=== PATIENT | male | born 1945 | race African-American/Black ===

== ENCOUNTER → 2016-12-14 | Outpatient (CLI) | payer MEDICARE ==
[~2016-12-14] MED LIST: AMIT25TA9 PO; ASPI-808 PO; Amitriptyline; CARV25TA PO; CARV6.252 PO; CEFE1FRO IV; CLOP75TA69 PO; DIGO-10 PO; DIGO250T PO; EXEN2PEN SQ; FURO40TA4 PO; Finasteride PO; GLIP10TA13 PO; GLIP5TAB13 PO; Glipizide; HYDR-3820 PO; IBUP-1780 PO; INSU100V5 SC; INSU100V5 SQ; LISI40TA PO; Lisinopril; METF1000 PO; METF500T4 PO; METH1TAB59 PO; METR500P4 IV; Metformin; PRAS10TA6 PO; SPIR25TA3 PO; ZOLP5TAB7 PO; [UNRECOGNIZED DRUG - REMARK]
--- OUTSIDE RECORDS SUMMARY | 2016-12-14 13:05 | XMS REPORT | Continuity of Care Document ---
Author Author [facility] Organization [facility] Address Unknown Phone Unavailable Care Team Providers Care Food Safety Specialist Name Role Phone BEAU CHANG DO PCP Insurance Providers Payer Name Policy Number Subscriber Name Relationship [employer]ps Medicare [id number] Sky Cancino 18 Self / Same As Patient [facility] [id number] Sky Cancino 18 Self / Same As Patient Advance Directives Directive Response Recorded Date/Time Advance Directives No 12/29/15 7:07am Health Care Power of Dumper Bailer Operator No 12/29/15 7:07am Organ Donor No 12/29/15 [...] Reaction Status Last Updated Sulfa (Sulfonamide Antibiotics) ([id number]) Allergy Mild Active Immunizations No immunization records. Vital Signs No known vital signs results. Results No known relevant diagnostic tests, laboratory data and/or discharge summary. Procedures No known history of procedures. Encounters Encounter Location Arrival/Admit Date Discharge/Depart Date Attending Provider Discharged Recurring [facility] 02/02/16 3:26pm 4:00pm LORY NAM APRN
[2016-12-14 13:35] LABS: BASOPHILS % (AUTO) 0 % (0-10); EOSINOPHILS # (AUTO) 0.3 10^3/uL (0.0-0.3); EOSINOPHILS % (AUTO) 5 % (0-10); LYMPHOCYTES # (AUTO) 1.5 X 10^3 (1.0-4.0); LYMPHOCYTES % (AUTO) 25 % (12-44); MEAN CORPUSCULAR HEMOGLOBIN 27 PG (25-34); MEAN CORPUSCULAR HGB CONC 32 G/DL (32-36); MEAN CORPUSCULAR VOLUME 85 FL (80-99); MEAN PLATELET VOLUME 10.8 FL (7.4-10.4); MONOCYTES # (AUTO) 0.5 X 10^3 (0.0-1.0); MONOCYTES % (AUTO) 8 % (0-12); NEUTROPHILS # (AUTO) 3.8 X 10^3 (1.8-7.8); NEUTROPHILS % (AUTO) 63 % (42-75); PLATELET COUNT 351 10^3/uL (130-400); RED BLOOD COUNT 3.89 10^6/uL (4.35-5.85); RED CELL DISTRIBUTION WIDTH 13.3 % (10.0-14.5)
[2016-12-14 13:56] LABS: ALBUMIN 3.6 G/DL (3.2-4.5); BILIRUBIN,TOTAL 0.3 MG/DL (0.1-1.0); CREATININE SERUM 2.4 MG/DL (0.60-1.30); POTASSIUM 5.8 MMOL/L (3.6-5.0); TOTAL PROTEIN 7.6 G/DL (6.4-8.2)
[2016-12-14 14:02] LABS: ERYTHROCYTE SEDIMENTATION RATE 61 MM/HR (0-30)
--- NOTE | 2016-12-20 14:12 | Diagnostic Imaging Report ---
3 views of the left foot. INDICATION: Infection in the great toe. FINDINGS: There is minimal subchondral erosion along the medial aspect of the base of the proximal phalanx of the great toe which is probably degenerative. There is no significant periosteal reaction, bone destruction, or other sign of bone infection identified. Mild hallux valgus is seen. No radiopaque foreign body. IMPRESSION: Minimal subchondral erosions along the first metatarsal/ pharyngeal joint probably related to degenerative change. Dictated by: Dictated on workstation # [id number]
== END ==
LOC: RAD 13:01
PROVIDERS: ATTEND Surgery
DX: E11.621 Type 2 diabetes mellitus with foot ulcer (principal); E11.42 Type 2 diabetes mellitus with diabetic polyneuropathy; L97.524 Non-pressure chronic ulcer of other part of left foot with necrosis of bone; I70.245 Atherosclerosis of native arteries of left leg with ulceration of other part of foot; I70.262 Atherosclerosis of native arteries of extremities with gangrene, left leg
CPT/HCPCS: 36415; 73630; 80053; 83036; 85025; 85652

== ENCOUNTER → 2017-01-18 | Outpatient (CLI) | payer MEDICARE | LOC: CARD 10:56 | PROVIDERS: ATTEND Surgery | DX: E11.621 Type 2 diabetes mellitus with foot ulcer (principal); E11.42 Type 2 diabetes mellitus with diabetic polyneuropathy; L97.524 Non-pressure chronic ulcer of other part of left foot with necrosis of bone; I70.245 Atherosclerosis of native arteries of left leg with ulceration of other part of foot; I70.262 Atherosclerosis of native arteries of extremities with gangrene, left leg | CPT/HCPCS: 36415; 83036; 93005 ==

== ENCOUNTER 2017-01-25 08:17 | Outpatient (RCR) | payer MEDICARE ==
--- OUTSIDE RECORDS SUMMARY | 2016-12-14 10:25 | XMS REPORT | Continuity of Care Document ---
Author Author [facility] Organization [facility] Address Unknown Phone Unavailable Care Team Providers Care Industrial Gas Servicer Name Role Phone BEAU CHANG DO PCP Insurance Providers Payer Name Policy Number Subscriber Name Relationship [employer] [id number] Sky Cancino 18 Self / Same As Patient [facility] [id number] Sky Cancino 18 Self / Same As Patient Advance Directives Directive Response Recorded Date/Time Advance Directives No 12/29/15 7:07am Health Care Power of Infertility Nurse No 12/29/15 7:07am Organ Donor No 12/29/15 7:07am Problems No problem information available. Medications Current Home Medications Medication Dose Units Route Directions Days/Qty Instructions Start Date [Lisinopril] 12/31/11 [Amitriptyline] 12/31/11 [Glipizide] 12/31/11 [Metformin] 12/31/11 Carvedilol (Coreg) 6.25 Mg 1 Each Oral Twice A Day 01/04/12 Metformin Hcl 1,000 Mg 1,000 Mg Oral Twice A Day 12/29/15 Digoxin 250 Mcg 250 Mcg Oral Daily 12/29/15 Furosemide 40 Mg 40 Mg Oral Daily 12/29/15 Methyl-B12/L-Mefolate/B6 Phos 1 Each 1 Each Oral Three Times A Day 12/29/15 Spironolactone 25 Mg 25 Mg Oral Daily 12/29/15 Glipizide 10 Mg 20 Mg Oral Twice A Day 12/29/15 Lisinopril 40 Mg 40 Mg Oral Daily 12/29/15 Amitriptyline Hcl 25 Mg 25 Mg Oral Twice A Day 12/29/15 Carvedilol 25 Mg 25 Mg Oral Twice A Day 12/29/15 Insulin Determir 1,000 Units/10 Ml 24 Units Sub-Q Daily 12/29/15 Exenatide Microspheres 2 Mg/0.65 Ml 2 Mg Sub-Q Weekly 12/29/15 Aspirin 325 Mg 325 Mg Oral Daily 12/29/15 Clopidogrel Bisulfate 75 Mg 75 Mg Oral Daily 30 12/29/15 Social History Social History Problem Response Recorded Date/Time Recent Foreign Travel No 12/15/2015 1:26pm Do you dip or chew tobacco? No 12/29/2015 7:10am Hospital Discharge Instructions No hospital discharge instructions. Plan of Care Prescriptions See Medication Section Functional Status No functional status results. Allergies, Adverse Reactions, Alerts Allergen Type Severity Reaction Status Last Updated Sulfa (Sulfonamide Antibiotics) ([id number]) Allergy Mild Active Immunizations No immunization records. Vital Signs No known vital signs results. Results No known relevant diagnostic tests, laboratory data and/or discharge summary. Procedures No known history of procedures. Encounters Encounter Location Arrival/Admit Date Discharge/Depart Date Attending Provider Discharged Recurring [facility] 02/02/16 3:26pm 4:00pm LORY NAM APRN
[~2017-01-25 08:17] MED LIST changes: -CEFE1FRO IV; -DIGO250T PO; -Finasteride PO; -GLIP5TAB13 PO; -HYDR-3820 PO; -IBUP-1780 PO; -INSU100V5 SQ; -METF500T4 PO; -METR500P4 IV; -PRAS10TA6 PO; -ZOLP5TAB7 PO
[2017-01-25] MEDS ORDERED: HYDR-3820 PO (10:51)
[2017-01-25] MEDS ORDERED: PRAS10TA6 PO (10:51)
[2017-01-25] MEDS ORDERED: DIGO250T PO (10:51)
[2017-01-25] MEDS ORDERED: ZOLP5TAB7 PO (10:51)
[2017-01-28] MEDS ORDERED: morphine INJ 10 MG/ML 1ML (SYR OR VIAL) ONE (15:35)
[2017-01-29] MEDS ORDERED: METR500P4 IV (09:52)
[2017-01-29] MEDS ORDERED: CEFE1FRO IV (09:52)
[2017-01-29] MEDS ORDERED: GLIP5TAB13 PO (09:52)
[2017-01-29] MEDS ORDERED: INSU100V5 SQ (09:52)
[2017-02-16] MEDS ORDERED: HYDR-3820 PO (08:19)
[2017-02-16] MEDS ORDERED: METF500T4 PO (08:19)
[2017-02-16] MEDS ORDERED: Finasteride PO (08:19)
[2017-02-16] MEDS ORDERED: IBUP-1780 PO (08:19)
== END 2017-01-27 16:00 | disposition home or self-care (01) ==
LOC: WOUNDCARE 08:17
PROVIDERS: ATTEND Surgery
DX: E11.621 Type 2 diabetes mellitus with foot ulcer (principal); E11.42 Type 2 diabetes mellitus with diabetic polyneuropathy; L97.524 Non-pressure chronic ulcer of other part of left foot with necrosis of bone; I70.245 Atherosclerosis of native arteries of left leg with ulceration of other part of foot; I70.262 Atherosclerosis of native arteries of extremities with gangrene, left leg
CPT/HCPCS: 11042; 11100; 87070; 87075; 87077; 87186; 87205; 93922; 99212; 99213

== ENCOUNTER 2017-02-05 15:43 | Inpatient (IN) | payer MEDICARE ==
[~2017-02-05] VITALS: Ht 175.3 cm; Wt 62.1 kg
[~2017-02-05 15:43] MED LIST changes: +CEFE1FRO IV; +DIGO250T PO; +GLIP5TAB13 PO; +HYDR-3820 PO; +INSU100V5 SQ; +METR500P4 IV; +PRAS10TA6 PO; +ZOLP5TAB7 PO
[2017-02-05 16:53] VITALS: BP 137/67
[2017-02-05] MEDS ORDERED: HYDR-3820 PO (17:29)
[2017-02-05] MEDS: HYDROcodone/APAP 10 MG/325 MG (LORTAB) TAB PO PRN (18:08)
[2017-02-05] MEDS: IBUPROFEN 800 MG (MOTRIN) TAB PO SCH (18:08)
[2017-02-05 18:22] VITALS: BP 148/71
[2017-02-05] MEDS: ZOLPIDEM 5 MG (AMBIEN) TAB PO PRN (21:33)
[2017-02-05] MEDS: AMITRIPTYLINE 25 MG (ELAVIL) TAB PO SCH (21:34)
[2017-02-05] MEDS: FINASTERIDE (PROSCAR) 5 MG TAB PO SCH (21:34)
[2017-02-05] MEDS: CARVEDILOL 12.5 MG (COREG) TABLET PO SCH (21:34)
[2017-02-05] MEDS: inSUlin DETERMIR 1 UNIT/0.01 ML (LEVEMIR) CHARGE PER UNIT SQ SCH (21:34)
[2017-02-05] MEDS: inSUlin (REGULAR) HUMAN 1 UNIT/0.01 ML (CHARGE PER UNIT) SC SCH (21:37)
--- NOTE | 2017-02-05 23:00 | HISTORY AND PHYSICAL ---
DATE OF SERVICE: 02/05/2017 CHIEF COMPLAINT: Difficulty with walking. HISTORY OF PRESENT ILLNESS: The patient is a 71-year-old male who lives with his spouse in [place] but has PCP in [place], [place]. He has past medical history significant for insulin-dependent diabetes mellitus. He developed infection of the left foot which went on to require a left BKA performed by Dr. Salgado at [facility] in [place], [place]. The patient is now referred to inpatient rehabilitation unit at [facility] in [place] for ongoing amputee rehabilitation. He had been independent prior to this. He currently requires assistance for his ADLs and mobility skills See PT/OT olya for details. PAST MEDICAL HISTORY: Insulin-dependent diabetes mellitus. PAST SURGICAL HISTORY: As per above. He has had prior lumbar spine surgery in the past as well. ALLERGIES: SULFA, PLAVIX, PRAVASTATIN, TEMAZEPAM INTOLERANCE. MEDICATIONS: ASA 325 mg p.o. q. day, lisinopril 40 mg p.o. q. day, digoxin 0.25 mg p.o. q. day, Effient 10 mg p.o. q. day, Glucophage 1000 mg p.o. b.i.d., amitriptyline 25 mg p.o. b.i.d, Levemir insulin 30 units subcutaneous daily at bedtime, Coreg 25 mg p.o. b.i.d., Proscar 5 mg p.o. daily at bedtime, ibuprofen 800 mg p.o. q. 6 hours p.r.n. pain, hydrocodone APAP 1 tablet p.o. q. 4 hours p.r.n. moderate pain, Ambien 5 mg p.o. daily at bedtime p.r.n. insomnia. FAMILY HISTORY: Noncontributory. SOCIAL HISTORY: Essentially as per above. REVIEW OF SYSTEMS: A 10-point review of systems is significant for some insomnia. He takes Ambien. Some residual limb pain and phantom pain for which he takes pain medications. GLUCOMETER READINGS: This evening they are 213 and 247. PHYSICAL EXAMINATION: GENERAL APPEARANCE: A pleasant male appearing his stated age. He is sitting at the side of the bed in no acute distress. VITAL SIGNS: He is afebrile. Pulse is 85. Respirations 14. Blood pressure 148/71 and oxygen saturation is 99% on room air. HEENT: Vision, speech and hearing are grossly intact. No oral lesions are noted. NECK: Supple without mass. HEART: Regular rate and rhythm. LUNGS: Clear. ABDOMEN: Soft and nontender. Bowel sounds are present. EXTREMITIES: No limb edema. No calf tenderness on the right. On the left there is BKA with residual limb is wrapped and only mildly tender to palpation. MUSCULOSKELETAL: The patient has functional and active range of motion in both upper extremities and right lower extremity. The left lower extremity is functional approximately at the knee and hip. NEUROLOGIC: Sensation is grossly intact to touch. Cognition is grossly intact. The patient has functional strength in both upper extremities and right lower extremity. IMPRESSION: 1. Ambulatory dysfunction secondary to left below knee amputation. Dr. Salgado at [facility] in [place], [place]. 2. Insulin-dependent diabetes mellitus. 3. Postop anemia PLAN: 1. The patient will have a comprehensive program of inpatient amputee rehabilitation with goal of maximizing level of functional independence prior to discharge home with spouse. The patient will have PT and OT 90 minutes per day each discipline for 2 weeks. He will have transfer training, wheelchair training, gait as able, nonweightbearing left lower extremity. ADLs. Family, caregiver training as necessary. Adaptive equipment training as necessary. Residual limb conditioning for pre-prosthetic training. Speech therapy to do cognitive assessment and treat as indicated. Rehabilitation: Nursing to assist with bowel, bladder, skin, wound care, medication administration, pain management, director of child welfare services for discharge planning and Community re-entry. Accu-Checks q.i.d. before each meal and at bedtime. Add sliding scale insulin regimen A and adjust insulin as needed. Continue Effient for DVT prophylaxis. We will consult Dr. Larose for medical management. Routine admission labs. Cardiac and fall precautions. ESTIMATED LENGTH OF STAY: 2 weeks. DIET: Carbohydrate consistent. CODE STATUS: FULL CODE. PROGNOSIS: Appears good with the goal of discharging him home with spouse, modified independent with supervision for ADLs and mobility skills. We will focus on wheelchair level of function at this time due to his recent Left BKA. Job ID: [id number] DocumentID: [id number] Dictated Date: 02/05/2017 22:24:22 Sales Representative Livestock Date: 02/05/2017 23:00:23 Dictated By: JOHNIE RANDALL MD [facility]
[2017-02-06] MEDS: IBUPROFEN 800 MG (MOTRIN) TAB PO SCH ×5 (00:12→23:44)
[2017-02-06] MEDS: HYDROcodone/APAP 10 MG/325 MG (LORTAB) TAB PO PRN ×4 (02:04→20:35)
[2017-02-06 05:20] VITALS: BP 143/74
[2017-02-06 05:58] LABS: BASOPHILS % (AUTO) 1 % (0-10); EOSINOPHILS # (AUTO) 0.4 10^3/uL (0.0-0.3); EOSINOPHILS % (AUTO) 6 % (0-10); LYMPHOCYTES # (AUTO) 1.6 X 10^3 (1.0-4.0); LYMPHOCYTES % (AUTO) 21 % (12-44); MEAN CORPUSCULAR HEMOGLOBIN 25 PG (25-34); MEAN CORPUSCULAR HGB CONC 31 G/DL (32-36); MEAN CORPUSCULAR VOLUME 82 FL (80-99); MEAN PLATELET VOLUME 9.2 FL (7.4-10.4); MONOCYTES # (AUTO) 0.9 X 10^3 (0.0-1.0); MONOCYTES % (AUTO) 12 % (0-12); NEUTROPHILS # (AUTO) 4.5 X 10^3 (1.8-7.8); NEUTROPHILS % (AUTO) 61 % (42-75); PLATELET COUNT 642 10^3/uL (130-400); RED BLOOD COUNT 2.89 10^6/uL (4.35-5.85); RED CELL DISTRIBUTION WIDTH 15.6 % (10.0-14.5); WHITE BLOOD COUNT 7.5 10^3/uL (4.3-11.0)
[2017-02-06] MEDS: inSUlin (REGULAR) HUMAN 1 UNIT/0.01 ML (CHARGE PER UNIT) SC SCH ×4 (06:17→20:35)
[2017-02-06] MEDS: metFORMIN 500 MG (GLUCOPHAGE) TAB PO SCH ×2 (06:17→16:31)
[2017-02-06 06:21] LABS: ALANINE AMINOTRANSFERASE 20 U/L (0-55); ALBUMIN 2.7 G/DL (3.2-4.5); ANION GAP 9 MMOL/L (5-14); ASPARTATE AMINO TRANSFERASE 17 U/L (5-34); BILIRUBIN,TOTAL 0.3 MG/DL (0.1-1.0); BLOOD UREA NITROGEN 29 MG/DL (7-18); BUN/CREATININE RATIO 24; CALCIUM 9.6 MG/DL (8.5-10.1); CARBON DIOXIDE 25 MMOL/L (21-32); CHLORIDE 101 MMOL/L (98-107); GFR ESTIMATED > 60; GLUCOSE 103 MG/DL (70-105); POTASSIUM 4.6 MMOL/L (3.6-5.0); SODIUM 135 MMOL/L (135-145); TOTAL PROTEIN 6.6 G/DL (6.4-8.2)
--- NOTE | 2017-02-06 08:36 | Consultation ---
History of Present Illness History of Present Illness Patient Consulted On(jarrett/time) 02/06/17 08:31 Date of Admission History of Present Illness patient had left below the knee amputation in [place] at [facility] by Dr. green. Patient in insulin-dependent diabetic Previous surgeries 2 back in 1 hernia. Family history denies asthma TB diabetes heart . Parents had cancer. Head denies headaches dizziness fainting. Allergies and Home Medications Allergies Coded Allergies: Sulfa (Sulfonamide Antibiotics) (Verified Allergy, Severe, HIVES, 02/05/17) temazepam (Verified Allergy, Severe, 02/05/17) MENTAL CONFUSION pravastatin (Verified Adverse Reaction, Severe, RASH, 02/05/17) clopidogrel (Verified Adverse Reaction, Unknown, 02/05/17) Home Medications Amitriptyline HCl 25 Mg Tablet, 25 MG PO BID, (Reported) Aspirin 325 Mg Tablet, 325 MG PO DAILY, (Reported) Carvedilol 25 Mg Tablet, 25 MG PO BID, (Reported) Digoxin 250 Mcg Tablet, 250 MCG PO HS, (Reported) Furosemide 40 Mg Tablet, 40 MG PO DAILY, (Reported) Glipizide 5 Mg Tablet, 5 MG PO BID for 10 Days Prescribed by: TESSA FLORES on 01/29/17 0952 Hydrocodone/Acetaminophen 1 Each Tablet, 1-2 EACH PO Q6H PRN for PAIN-MODERATE, (Reported) Insulin Determir 1,000 Units/10 Ml Soln, 8 UNIT SQ HS for 10 Days Prescribed by: TESSA FLORES on 01/29/17 0952 Lisinopril 40 Mg Tablet, 40 MG PO DAILY, (Reported) Methyl-B12/l-Mefolate/B6 Phos 1 Each Tablet, 1 TAB PO TID, (Reported) Prasugrel HCl 10 Mg Tablet, 10 MG PO DAILY, (Reported) Zolpidem Tartrate 5 Mg Tablet, 5 MG PO HS, (Reported) Past Zabjnpu-Rkisih-Kovnhk Hx Patient Social History Alcohol Use: Denies Use Recreational Drug Use: No Smoking Status: Former Smoker Type Used: Cigars Former Smoker/When Quit: Dec 29, 1979 Recent Foreign Travel: No Contact w/Someone Who Travel: No Recent Infectious Disease Expo: No Recent Hopitalizations: Yes (Left [facility]) Physical Abuse Screen: No Sexual Abuse: No Seasonal Allergies Seasonal Allergies: No Surgeries HX Surgeries: Yes Surgeries: Orthopedic, Prostatectomy Respiratory Hx Respiratory Disorders: No Respiratory Disorders: Sleep Apnea Cardiovascular Hx Cardiac Disorders: Yes Cardiac Disorders: Coronary Artery Disease, High Cholesterol, Hypertension Neurological Hx Neurological Disorders: Yes Neurological Disorders: Neuropathy Reproductive System Sexually Transmitted Disease: No HIV/AIDS: No Genitourinary Hx Genitourinary Disorders: Yes Genitourinary Disorders: Prostate Problems Gastrointestinal Hx Gastrointestinal Disorders: No Musculoskeletal Hx Musculoskeletal Disorders: Yes Musculoskeletal Disorders: Chronic Back Pain Endocrine Hx Endocrine Disorders: Yes Endocrine Disorders: Diabetes, Insulin dep HEENT HEENT Disorders: Cataract Loss of Vision: Denies Hearing Impairment: Denies Cancer Hx Cancer: No Psychosocial Hx Psychiatric Problems: Yes Behavioral Health Disorders: Anxiety, Depression Integumentary HX Skin/Integumentary Disorder: Yes Skin/Integumentary Disorders: Recent Skin Changes Blood Transfusions Adverse Reaction to a Blood Tr: No Family Medical History Significant Family History: No Pertinent Family Hx Family Medial History: Abdominal aortic aneurysm G8 SISTER Alcoholism G8 BROTHER G8 BROTHER G8 BROTHER Arthritis G8 BROTHER G8 BROTHER G8 BROTHER G8 BROTHER G8 BROTHER G8 SISTER G8 SISTER Cardiovascular disease G8 SISTER Diabetes mellitus G8 BROTHER G8 BROTHER G8 BROTHER G8 SISTER G8 SISTER Drug abuse G8 BROTHER G8 BROTHER Headache disorder G8 BROTHER G8 BROTHER G8 BROTHER G8 BROTHER G8 BROTHER G8 BROTHER G8 BROTHER G8 BROTHER G8 SISTER G8 SISTER G8 SISTER G8 SISTER Hypercholesterolemia G8 BROTHER G8 BROTHER G8 BROTHER G8 BROTHER G8 BROTHER G8 SISTER G8 SISTER G8 SISTER G8 SISTER Hypertension G8 BROTHER G8 BROTHER G8 BROTHER G8 BROTHER G8 BROTHER G8 BROTHER G8 BROTHER G8 BROTHER G8 SISTER G8 SISTER G8 SISTER G8 SISTER Thyroid disease Tuberculosis 19 FATHER Review of Systems-General Constitutional: no symptoms reported EENTM: no symptoms reported Respiratory: no symptoms reported Cardiovascular: no symptoms reported Gastrointestinal: no symptoms reported Genitourinary: no symptoms reported Physical Exam-General Problems Physical Exam Vital Signs Vital Sign - Last 12Hours 02/05/17 02/06/17 16:53 05:20 Temp 98.7 Pulse 78 Resp 16 B/P (MAP) 137/67 Pulse Ox 96 O2 Delivery Room Air Capillary Refill : General Appearance: WD/WN, thin Eyes: Bilateral Eye Normal Inspection HEENT: normal ENT inspection Neck: non-tender, full range of motion Respiratory: chest non-tender, lungs clear, normal breath sounds, no respiratory distress, no accessory muscle use Cardiovascular: regular rate, rhythm, no murmur Gastrointestinal: non tender, soft Assessment/Plan Assessment/Plan Admission Diagnosis/Plan below the knee amputation. Diabetes Clinical Quality Measures DVT/VTE Risk/Contraindication: Risk Factor Score Per Nursin RFS Level Per Nursing on Admit: 4+=Very High TERRI TAVAREZ DO February 06, 2017 08:36
--- NOTE | 2017-02-06 08:46 | PM & R (SOAP) Progress Note ---
Subjective Subjective/Events-last exam Patient was seen in his room this AM Adjusting well to unit Pain control adequate Labs noted HGB 7,3 Stool for OB ordered. Review of Systems Musculoskeletal: leg pain Objective Exam Last Set of Vital Signs Vital Signs Date Time Temp Pulse Resp B/P (MAP) Pulse Ox O2 Delivery O2 Flow Rate FiO2 02/06/17 05:20 97.1 75 16 143/74 96 Room Air Capillary Refill : I&O Bad tableGeneral: Alert, Oriented X3, Cooperative, No Acute Distress HEENT: Atraumatic, PERRLA, EOMI, Mucous Memb Moist/[place] Neck: Supple, No JVD Lungs: Clear to Auscultation Heart: Regular Rate Abdomen: Normal Bowel Sounds, Soft, No Tenderness Extremities: Other (Left BKA wrapped with mild tenderness) Neuro: Other (generalized weakness has active movement left knee) Results Lab Laboratory Tests 02/05/17 20:40: Glucometer 213H 02/05/17 21:32: Glucometer 247H 02/06/17 05:37: White Blood Count 7.5, Red Blood Count 2.89L, Hemoglobin 7.3L, Hematocrit 24L, Mean Corpuscular Volume 82, Mean Corpuscular Hemoglobin 25, Mean Corpuscular Hemoglobin Concent 31L, Red Cell Distribution Width 15.6H, Platelet Count 642H, Mean Platelet Volume 9.2, Neutrophils (%) (Auto) 61, Lymphocytes (%) (Auto) 21, Monocytes (%) (Auto) 12, Eosinophils (%) (Auto) 6, Basophils (%) (Auto) 1, Neutrophils # (Auto) 4.5, Lymphocytes # (Auto) 1.6, Monocytes # (Auto) 0.9, Eosinophils # (Auto) 0.4H, Basophils # (Auto) 0.0, Sodium Level 135, Potassium Level 4.6, Chloride Level 101, Carbon Dioxide Level 25, Anion Gap 9, Blood Urea Nitrogen 29H, Creatinine 1.20, Estimat Glomerular Filtration Rate > 60, BUN/ Creatinine Ratio 24, Glucose Level 103, Calcium Level 9.6, Total Bilirubin 0.3, Aspartate Amino Transf (AST/SGOT) 17, Alanine Aminotransferase (ALT/SGPT) 20, Alkaline Phosphatase 84, Total Protein 6.6, Albumin 2.7L 02/06/17 05:53: Glucometer 110 Assessment/Plan Assessment S/P LBKA OSH DR Salgado IDDM Postop anemia Plan PT/OT evals pending Team Conference later today-see report for full functional update and POC and ELOS Appreciate Dr stevens note and orders Recheck Labs Consult DR Cabral -personnel security specialist Dr Larose covering my service from 02/07/17 til 02/13/17 Check stool for OB See orders JOHNIE RANDALL MD February 06, 2017 08:45
--- NOTE | 2017-02-06 08:55 | PM&R Post Admission Assessment ---
Post Admission Physician Asses The preadmission screen agrees with the post admission assessment that the patient is a good candidate for inpatient rehabilitation. The patient will have a comprehensive program of inpatient rehabilitation with a goal of maximizing level of functional independence prior to discharge home with spouse. The patient will have PT/OT ninety minutes per day, each discipline, five days a week for gait ,strengthening, residual limb conditioning, balance, ADLs, any patient/family/caregiver training necessary. Speech therapy to do cognitive assessment and treat as indicted. Rehabilitation nursing to assist with bowel, bladder, skin, wound care, medication administration, pain management. Storage Receipt Poster to assist with discharge planning, community reentry. Med for DVT prophylaxis. He appears to be well motivated to participate in three hours of therapy a day. He should be able to tolerate three hours of therapy a day from a medical and surgical standpoint. He should benefit from the three hours of therapy a day. He has a reasonable discharge plan, reasonable discharge rehabilitation goals and a supportive family. He has various comorbidities that need to be closely monitored with medications and treatments adjusted on a daily basis as needed. These include: Pain management Management IDDM Postop anemia Barriers to discharge for this patient who had been independent prior to this are for him to be modified independent to supervision for ADLs and mobility skills prior to discharge home with spouse with a focus on W/C ;evel of function due to NWB status due to Left BKA, so as to lessen the burden of the caregivers. Risks for this patient include: 1. Fall 2. Fracture 3. DVT 4. Pulmonary embolism 5. Wound infection 6. Skin breakdown 7. Contractures 8. Poorly controlled pain 9. Urinary retention 10. UTI 11. Respiratory infection 12. Aspiration 13. worsening anemia 14 Poorly controlled DM Estimated Length of Stay: 10-14 days Prognosis: Rehab prognosis appears good for goal of discharge home with spouse modified independent to supervision for ADLs and mobility skills.at the w/c level of function JOHNIE RANDALL MD February 06, 2017 08:55
[2017-02-06] MEDS: AMITRIPTYLINE 25 MG (ELAVIL) TAB PO SCH ×2 (10:01→20:12)
[2017-02-06] MEDS: ASPIRIN E.C. 325 MG (ECOTRIN) TABLET PO SCH (10:01)
[2017-02-06] MEDS: CARVEDILOL 12.5 MG (COREG) TABLET PO SCH ×2 (10:02→20:12)
[2017-02-06] MEDS: PRASUGREL 10 MG (EFFIENT) TABLET PO SCH (10:02)
[2017-02-06] MEDS: DIGOXIN 0.25 MG (LANOXIN) TAB PO SCH (10:02)
[2017-02-06] MEDS: lisINopril 20 MG (ZESTRIL) TAB PO SCH (10:02)
--- NOTE | 2017-02-06 10:02 | Occupational Therapy Eval ---
OT Evaluation-General/PLF Medical Diagnosis Admission Date February 05, 2017 at 16:25 Medical Diagnosis: left BKA Onset Date: February 05, 2017 Therapy Diagnosis Therapy Diagnosis: decreased self care skills Height/Weight Height (Feet): 5 Height (Inches): 9.00 Weight (Pounds): 136 Weight (Ounces): 5.0 Precautions Precautions/Isolations: Fall Prevention, Standard Precautions Safety Interventions: Bed Exit Alarm Weight Bear Status Location Restriction: L LE Referral Physician: Héctor Medical History Pertinent Medical History: CAD, DM, HTN, Neuropathy, PVD Additional Medical History lumbar spine surgery, hyperlipidemia Reviewed History: Yes Social History Home: Multilevel (can stay on main level) Current Living Status: Spouse Entry Into Home: Stairs With Railing Steps Into Home: 3 ADL-Prior Level of Function ADL PLOF Comments Pt reports being independent with basic self care and mobility prior to surgery. 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 Pt reports 7/10 left LE pain. Mental Status/Objective Patient Orientation: Person, Place, Situation Current Glasses/Contacts: Yes Hearing Aids: No Dentures/Partials: Yes (upper dentures) Hand Dominance: Right Upper Extremity ROM Grossly WFL Upper Extremity Coordination Intact Upper Extremity Sensation Pt reports tingling in hands Upper Extremity Strength Grossly 4/5 ADL-Treatment ADL-Current Pt supine to sit with SBA. Sponge bath completed seated EOB. Pt able to wash upper body with set up. Pt washes obey area, bilateral upper legs and right lower leg/foot with SBA. Stood with minimal assistance to wash buttocks. Pt donned pullover shirt with set up. Donned pants with minimal assistance for balance during pant hike. Pt transferred to w/c with minimal assistance using FWW. Pt completed grooming tasks with set up while seated at sink. Pt brushed teeth with setup. Pt's meal tray arrived. Pt able to open all containers and feed self with modified independence. Pt sitting in w/c with needs met after session. Functional [place] Measure 0=Not Assessed/NA 4=Minimal Assistance 1=Total Assistance 5=Supervision or Setup 2=Maximal Assistance 6=Modified [place] 3=Moderate Assistance 7=Complete IndependenceIRFPAI Quality Coding Scale 6 Independent with activity with or without an assistive device 5 Patient requires set up or clean up by helper. Patient completes activity by themselves 4 Supervision or touching assist (CGA). [place] provide cues , steadying assist 3 The helper provides less than half the effort to complete the activity 2 The helper provides more than half the effort to complete the activity 1 Dependent. The helper does all the effort to complete an activity 7 Patient refused to complete or attempt activity 9 The patient did not perform the activity before the current illness or injury 88 Not attempted due to Medical conditions or safety concerns Eating (FIM): 6 Eating (QC): 6 Grooming (FIM): 5 Oral Hygiene (QC): 5 Bathing (FIM): 4 Shower/Bathe Self (QC): 3 Upper Body Dressing (FIM): 5 Upper Body Dressing (QC): 5 Lower Body Dressing (FIM): 4 Lower Body Dressing (QC): 3 On/Off Footwear (QC): 5 Toilet/Commode Transfer (FIM): 4 Toilet Transfer (QC): 4 OT Short Term Goals Short Term Goals Time Frame: February 13, 2017 Bathing(FIM): 5 Lower Body Dressing(FIM): 5 Toileting(FIM): 5 Toilet/Commode Transfer(FIM): 5 Additional Short Term Goals: 1-Demonstrate ADL Tasks, 2-Verbalize Understanding , 3-ImproveStrength/Miranda 1=Demonstrate adherence to instructed precautions during ADL tasks. 2=Patient will verbalize/demonstrate understanding of assistive devices/ modifications for ADL. 3=Patient will improve strength/tolerance for activity to enable patient to perform ADL's. OT Assisted Goals Assisted Goals Time Frame: February 27, 2017 Eating (FIM): 6 Eating (QC): 6 Groomin Oral Hygiene (QC): 6 Bathing(FIM): 5 Shower/Bathe Self (QC): 5 Upper Body Dressing(FIM): 6 Upper Body Dressing (QC): 6 Lower Body Dressing(FIM): 6 Lower Body Dressing (QC): 6 On/Off Footwear (QC): 6 Toileting(FIM): 6 Toileting Hygiene (QC): 6 Toilet/Commode Transfer(FIM): 6 Toilet/Commode Transfer (QC): 6 Shower Transfer(FIM): 5 Additional Goals: 1-Demonstrate ADL Tasks, 2-Verbalize Understanding, 3- ImproveStrength/Miranda 1=Demonstrate adherence to instructed precautions during ADL tasks. 2=Patient will verbalize/demonstrate understanding of assistive devices/ modifications for ADL. 3=Patient will improve strength/tolerance for activity to enable patient to perform ADL's. OT Education/Plan Problem List/Assessment Assessment: Decreased Activ Tolerance, Decreased UE Strength, Dependent Transfers, Impaired Self-Care Skills Pt s/p left BKA with decreased mobility, ADL functioning, and strength. Pt to benefit from skilled OT intervention for ADL training, transfers, strengthening , and home safety education to maximize level of function and allow safe discharge. Discharge Recommendations Plan/Recommendations: Continue POC Treatment Plan/Plan of Care Treatment,Training & Education: Yes Patient would benefit from OT for education, treatment and training to promote independence in ADL's, mobility, safety and/or upper extremity function for ADL' s. Plan of Care: ADL Retraining, Functional Mobility, Group Exercise/Act as Ind, UE Funct Exercise/Act Treatment Duration: February 27, 2017 # of days/week 5-6 Visits Per Week: 10-12 Minutes/Day (M-F): 60-90 Minutes/Day (Sat/Maier): PRN Agreement: Yes Rehab Potential: Good Time/GCodes Start Time: 08:15 Stop Time: 09:15 Total Time Billed (hr/min): 60 Billed Treatment Time 1 visit, EVL(15minutes), ADLx3(45minutes) DARIO RUCKER OT February 06, 2017 10:02
--- NOTE | 2017-02-06 10:03 | ST Cognitive Linguistic Eval ---
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 Simon Anaya Reason for Referral: Evaluation/Treatment Cognitive Evaluation Medical History Pertinent Medical History: CAD, DM, HTN Reviewed History: Yes Social History Home: Multilevel Current Living Status: Significant Other Speech PLF-Current Status Prior Level of Function The patient denied challenges with cognition, speech, or language prior to or throughout admission. Subjective The patient was admitted to [facility] following a left BKA. The patient greeted the clinician appropriately and was agreeable to participation in the evaluation. Language Eval: Auditory Comprehends Simple Yes/No Ques: Functional Indent/Objects Multiple [place]: Functional Ident/Pics in Multiple Martinez: Functional Follows 1-Step Commands: Functional Follows Complex Directions: Functional Follows General Conversations: Functional Language Eval: Verbal Language Completes Spontaneous Greeting: Functional Produces Auto, Serial Info: Functional Imitates Simple Words/Phrases: Functional Word Finding: Mild Requests Basic Needs: Functional States Basic Personal Info: Functional Expresses Complex Ideas: Functional Cognitive Patient Orientation The patient was oriented to name, date of , location, day of week and year. The patient required mild verbal cueing for accurate identification of month. Objective Cognitive Domain Attention: WNL Memory: Mild Problem Solving: Functional Objective Impression The patient demonstrated cognitive linguistic skills grossly within normal limits and appropriate for completion of ADL's. Communication/Social Cognition Comprehension: 5 Expression: 5 Social Interaction: 5 Problem Solvin Memory: 5 Speech Patient Assess Expression of Ideas/Wants: Exhibits (3) Understanding Vebal Content: Usually Understands (3) Brief Interview-Mental Status: Yes Repetition of Three Words: Three (3) Temporal Orientation: Year: Correct (3) Temporal Orientation: Month: Accurate within 5 days(2) Temporal Orientation: Day: Correct (1) Recall : Wear to say "Sock": Yes,after cueing (1) Recall : Color: Yes, after cueing (1) Recall : Bed: Yes, no cue required (2) Speech-Plan Treatment Plan Speech Therapy Treatment Plan: Discontinue ST Evaluation, only. Rehab Potential: Good Safety Risks/Education Teaching Recipient: Patient Teaching Methods: Discussion Response to Teaching: Verbalize Understanding Education Topics Provided: Plan of Care, Recommendations, Results Time Speech Therapy Time In: 09:15 Speech Therapy Time Out: 09:30 Total Billed Time: 15 Billed Treatment Time 1, ABDULKADIR JORDAN February 06, 2017 10:03
--- NOTE | 2017-02-06 10:39 | Physical Therapy Evaluation ---
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, 2017 Therapy Diagnosis Therapy Diagnosis: impaired mobility, strength, endurance Height/Weight Height (Feet): 5 Height (Inches): 9.00 Weight (Pounds): 136 Weight (Ounces): 5.0 Precautions Precautions/Isolations: Fall Prevention, Standard Precautions Weight Bear Status Location Restriction: L Referral Physician: Héctor Reason for Referral: Evaluation/Treatment Medical History Pertinent Medical History: CAD, DM, HTN, Neuropathy Additional Medical History former smoker, sleep apnea, high cholesterol, chronic back pain, anxiety, depression Current History left BKA, has a cvicu rn Reviewed History: Yes Social History Home: Multilevel (can stay on main level) Current Living Status: Significant Other Entry Into Home: Stairs Without Railing PT Steps Into Home: 3 Prior/Core FIM Prior Level of Function Functional [place] Measure 0=Not Assessed/NA 4=Minimal Assistance 1=Total Assistance 5=Supervision or Setup 2=Maximal Assistance 6=Modified [place] 3=Moderate Assistance 7=Complete [place] Bed Mobility: 7 Transfers (B,C,W/C) (FIM): 7 Gait: 7 PT Evaluation-Current Subjective Patient in recliner pre tx, agrees to PT, pleasant and cooperative, has pain of 7/10 and describes it as phantom pain. Has one cvicu rn, could use one or two more. Pt/Family Goals to get a prosthetic leg Objective Patient Orientation: Person, Place, Situation ROM/Strength ROM Lower Extremities Patient has full left knee extension Strenght Lower Extremities 4/5 gross right lower extremity, did not test left leg due to pain Integumentary/Posture Bowel Incontinence: No Neuromuscular (Tone, Coordination, Reflexes) WNL Sensory Vision: Functional Hearing: Functional Hand Dominance: Right Sensation Right Lower Extremit: Impaired Sensation Left Lower Extremity: Impaired Sensation Lower Extremities neuropathy Transfers Functional [place] Measure 0=Not Assessed/NA 4=Minimal Assistance 1=Total Assistance 5=Supervision or Setup 2=Maximal Assistance 6=Modified [place] 3=Moderate Assistance 7=Complete IndependenceIRFPAI Quality Coding Scale 6 Independent with activity with or without an assistive device 5 Patient requires set up or clean up by helper. Patient completes activity by themselves 4 Supervision or touching assist (CGA). Challenge provide cues , steadying assist 3 The helper provides less than half the effort to complete the activity 2 The helper provides more than half the effort to complete the activity 1 Dependent. The helper does all the effort to complete an activity 7 Patient refused to complete or attempt activity 9 The patient did not perform the activity before the current illness or injury 88 Not attempted due to Medical conditions or safety concerns Transfers (B, C, W/C) (FIM): 4 Scootin Rollin Roll Left to Right (QC): 4 Supine to/from Sit: 5 Sit to/from Stand: 5 bed t/f WC(FIM only if WC use): 4 Sit to Lying (QC): 4 Lying to Sitting/Side of Bed(Q: 4 Sit to Stand (QC): 4 Chair/Ooj-yb-Xatdr Xfer(QC): 4 Car Transfer (QC): 88 bed mobility SBA, transfers CGA, cues for safety and hand placement Gait Does the Patient Walk?: Yes Mode of Locomotion: Walk Anticipated Mode of Locomotion: Walk Gait (FIM): 1 Walk 10 feet (QC): 4 Walk 50 ft with 2 Turns(QC): 88 Walk 150 ft (QC): 88 Walking 10ft/uneven surface-QC: 88 Distance: 20' Gait Level of Assist: 4 Gait Persons Needed: 1 Gait Assistive Device: FWW Comments/Gait Description Wheelchair follow, patient fatigues quickly, poor foot clearance, patient needs cues not to lean so far forward Wheelchair Training Does the Pt Use a Wheelchair?: Yes Wheelchair (FIM): 4 Distance: 150'x2 Wheelchair Level of Assist: 4 Wheel 50 ft with 2 turns (QC): 3 Wheel 150 ft (QC): 3 Type of Wheelchair: Manual Patient needs some assist getting around corners because he turns too tightly, uses both arms and right leg. Stairs 1 Step (curb) (QC): 88 4 Steps (QC): 88 12 Steps (QC): 88 If not tested on admit;explain Patient cannot get his right leg high enough to go up a step. Balance Sitting Static: Normal Sitting Dynamic: Normal Standing Static: Fair Standing Dynamic: Fair Picking up an Object (QC): 88 Treatment prone hip flexor stretch for 5 min, supine ex x20 (QS, GS, hip flex/abd), LAQ x20 Assessment/Needs Patient has impairments in functional mobility, endurance, strength, balance Rehab Potential: Fair PT Short Term Goals Short Term Goals Time Frame: February 13, 2017 Transfers (B,C,W/C) (FIM): 5 Gait (FIM): 1 Gait Distance Comment: 30' Gait Level of Assist: 4 Gait Assistive Device: FWW PT Fci Goals Fci Goals PT Liquor Tester Goals Time Frame: February 27, 2017 Transfers (B,C,W/C) (FIM): 6 Sit to Lying (QC): 6 Lying-Sitting on Side/Bed(QC): 6 Sit to Stand (QC): 6 Rollin Roll Left to Right (QC): 6 Chair/Jcj-cb-Zlbyl Xfer(QC): 4 Car Transfer (QC): 4 Gait (FIM): 2 Distance: 50' Walk 10 feet (QC): 4 Walk 10ft-Uneven Surface(QC): 4 Walk 50ft with 2 Turns (QC): 4 Walk 150 ft (QC): 88 Gait Level of Assist: 5 Gait Assistive Device: FWW Wheelchair (FIM): 6 Distance: 150' Wheel 50 feet with 2 turns (QC: 6 PT Plan Problem List Problem List: Activity Tolerance, Functional Strength, Safety, Balance, Gait, Transfer, Bed Mobility, ROM Treatment/Plan Treatment Plan: Continue Plan of Care Treatment Plan: Bed Mobility, Education, Functional Activity Miranda, Functional Strength, Group Therapy, Gait, Safety, Therapeutic Exercise, Transfers Treatment Duration: February 27, 2017 # of days/week 5-6 Visits Per Week: 10-11 Minutes/Day (M-F): 60-90 Minutes/Day (Sat/Maier): 15-30 Pt/Family Agrees w/Plan: Yes Safety Risks/Education Patient Education: Gait Training, Transfer Techniques, Correct Positioning, W/ C Management, Safety Issues Teaching Recipient: Patient Teaching Methods: Demonstration, Discussion Response to Teaching: Reinforcement Needed Discharge Recommendations Plan Patient will perform bed mobility and transfer training, balance and endurance training, functional strengthening, stair training, gait training, and education , to improve functional mobility and independence at home. Therapy D/C Recommendations: Home w/ Family Support Time/GCodes Time In: 930 Time Out: 1030 Total Billed Treatment Time: 60 Total Billed Treatment 1 visit EVL 15' GT 15' WCH 15' EX 15' SAW PIÑA PT February 06, 2017 10:39
--- NOTE | 2017-02-06 11:46 | Occupational Ther Daily Note ---
OT Current Status-Daily Note Subjective Pt sitting EOB, agrees to treatment. Pt reports 6/10 left LE pain. Mental Status/Objective Functional [place] Measure 0=Not Assessed/NA 4=Minimal Assistance 1=Total Assistance 5=Supervision or Setup 2=Maximal Assistance 6=Modified [place] 3=Moderate Assistance 7=Complete [place] ADL-Treatment Functional [place] Measure 0=Not Assessed/NA 4=Minimal Assistance 1=Total Assistance 5=Supervision or Setup 2=Maximal Assistance 6=Modified [place] 3=Moderate Assistance 7=Complete IndependenceIRFPAI Quality Coding Scale 6 Independent with activity with or without an assistive device 5 Patient requires set up or clean up by helper. Patient completes activity by themselves 4 Supervision or touching assist (CGA). [place]rill provide cues , steadying assist 3 The helper provides less than half the effort to complete the activity 2 The helper provides more than half the effort to complete the activity 1 Dependent. The helper does all the effort to complete an activity 7 Patient refused to complete or attempt activity 9 The patient did not perform the activity before the current illness or injury 88 Not attempted due to Medical conditions or safety concerns Other Treatment Pt transferred EOB to w/c with CGA. Pt performed w/c mobility to therapy gym with increased time and cues for safety. Arm bike [id number] to increase overall strength and activity tolerance needed for ADLs and transfers. Pt completed task with moderate resistance and slow pace. No rest breaks needed. Pt performed bilateral UE exercises to increase strength needed for functional tasks. Pt performed shoulder flexion, forward press, and biceps curls x20 reps with 2# dowel dina. Brief rest breaks between exercises. Pt returned to room, transferred to EOB with CGA. Pt sitting EOB with needs met after session. OT Short Term Goals Short Term Goals Time Frame: February 13, 2017 Bathing(FIM): 5 Lower Body Dressing(FIM): 5 Toileting(FIM): 5 Transfers (B,C,W/C) (FIM): 5 Toilet/Commode Transfer(FIM): 5 Additional Short Term Goals: 1-Demonstrate ADL Tasks, 2-Verbalize Understanding , 3-ImproveStrength/Miranda 1=Demonstrate adherence to instructed precautions during ADL tasks. 2=Patient will verbalize/demonstrate understanding of assistive devices/ modifications for ADL. 3=Patient will improve strength/tolerance for activity to enable patient to perform ADL's. OT Fpc Goals Shoe Folder Goals Time Frame: February 27, 2017 Eating (FIM): 6 Eating (QC): 6 Groomin Oral Hygiene (QC): 6 Bathing(FIM): 5 Shower/Bathe Self (QC): 5 Upper Body Dressing(FIM): 6 Upper Body Dressing (QC): 6 Lower Body Dressing(FIM): 6 Lower Body Dressing (QC): 6 On/Off Footwear (QC): 6 Toileting(FIM): 6 Toileting Hygiene (QC): 6 Toilet/Commode Transfer(FIM): 6 Toilet/Commode Transfer (QC): 6 Shower Transfer(FIM): 5 Additional Goals: 1-Demonstrate ADL Tasks, 2-Verbalize Understanding, 3- ImproveStrength/Miranda 1=Demonstrate adherence to instructed precautions during ADL tasks. 2=Patient will verbalize/demonstrate understanding of assistive devices/ modifications for ADL. 3=Patient will improve strength/tolerance for activity to enable patient to perform ADL's. OT Education/Plan Problem List/Assessment Pt s/p left BKA with decreased mobility, ADL functioning, and strength. Pt to benefit from skilled OT intervention for ADL training, transfers, strengthening , and home safety education to maximize level of function and allow safe discharge. Discharge Recommendations Plan/Recommendations: Continue POC Treatment Plan/Plan of Care Patient would benefit from OT for education, treatment and training to promote independence in ADL's, mobility, safety and/or upper extremity function for ADL' s. Plan of Care: ADL Retraining, Functional Mobility, Group Exercise/Act as Ind, UE Funct Exercise/Act Treatment Duration: February 27, 2017 Visits Per Week: 10-12 Minutes/Day (M-F): 60-90 Minutes/Day (Sat/Maier): PRN Agreement: Yes Rehab Potential: Good Time/GCodes Start Time: 11:00 Stop Time: 11:30 Total Time Billed (hr/min): 30 Billed Treatment Time 1 visit, EXx2(30minutes) DARIO RUCKER OT February 06, 2017 11:45
--- NOTE | 2017-02-06 14:01 | Physical Therapy Daily Note ---
PT Daily Note-Current Subjective Patient in bed pre tx, agrees to PT, has pain of 8/10, nurse notified. Appearance Patient in bed post tx with nurse call, phone, tray, all needs met. Family in the room. Mental Status Patient Orientation: Normal For Age Transfers Functional [place] Measure 0=Not Assessed/NA 4=Minimal Assistance 1=Total Assistance 5=Supervision or Setup 2=Maximal Assistance 6=Modified [place] 3=Moderate Assistance 7=Complete IndependenceIRFPAI Quality Coding Scale 6 Independent with activity with or without an assistive device 5 Patient requires set up or clean up by helper. Patient completes activity by themselves 4 Supervision or touching assist (CGA). [place] provide cues , steadying assist 3 The helper provides less than half the effort to complete the activity 2 The helper provides more than half the effort to complete the activity 1 Dependent. The helper does all the effort to complete an activity 7 Patient refused to complete or attempt activity 9 The patient did not perform the activity before the current illness or injury 88 Not attempted due to Medical conditions or safety concerns Transfers (B, C, W/C) (FIM): 5 Scootin Rollin Supine to/from Sit: 5 Sit to/from Stand: 4 Bed to/from Chair: 4 cues for safety and hand placement Gait Training Gait (FIM): 1 Distance: 20'x2 Gait Level of Assist: 4 Gait Persons Needed: 1 Gait Assistive Device: FWW wheelchair follow, cues to stand strait, slow, poor endurance Wheelchair Training Does the Pt Use a Wheelchair?: Yes Wheelchair (FIM): 5 Distance: 150'x2 Type of Wheelchair: Manual Patient has a hard time turning corners because he turns too fast but he did not need assist to adjust. Treatments bed mobility and transfers, ambulation, wheelchair mobility Assessment Current Status: Fair Progress improving endurance PT Short Term Goals Short Term Goals Time Frame: February 13, 2017 Transfers (B,C,W/C) (FIM): 5 Gait (FIM): 1 Gait Distance Comment: 30' Gait Level of Assist: 4 Gait Assistive Device: FWW Wheelchair Distance: 150'x2 PT [facility] Goals [facility] Goals PT [facility] Goals Time Frame: February 27, 2017 Transfers (B,C,W/C) (FIM): 6 Sit to Lying (QC): 6 Lying-Sitting on Side/Bed(QC): 6 Sit to Stand (QC): 6 Rollin Roll Left to Right (QC): 6 Chair/Feu-oz-Oxotp Xfer(QC): 4 Car Transfer (QC): 4 Gait (FIM): 2 Distance: 50' Walk 10 feet (QC): 4 Walk 10ft-Uneven Surface(QC): 4 Walk 50ft with 2 Turns (QC): 4 Walk 150 ft (QC): 88 Gait Level of Assist: 5 Gait Assistive Device: FWW Wheelchair (FIM): 6 Distance: 150' Wheel 50 feet with 2 turns (QC: 6 PT Plan Problem List Problem List: Activity Tolerance, Functional Strength, Safety, Balance, Gait, Transfer, Bed Mobility, ROM Treatment/Plan Treatment Plan: Continue Plan of Care Treatment Plan: Bed Mobility, Education, Functional Activity Miranda, Functional Strength, Group Therapy, Gait, Safety, Therapeutic Exercise, Transfers Treatment Duration: February 27, 2017 Visits Per Week: 10-11 Minutes/Day (M-F): 60-90 Minutes/Day (Sat/Maier): 15-30 Safety Risks/Education Patient Education: Gait Training, Transfer Techniques, Correct Positioning, W/ C Management, Safety Issues Teaching Recipient: Patient Teaching Methods: Demonstration, Discussion Response to Teaching: Reinforcement Needed Time/GCodes Time In: 1315 Time Out: 1345 Total Billed Treatment Time: 30 Total Billed Treatment 1 visit [facility] 15' GT 15' SAW PIÑA PT February 06, 2017 14:01
[2017-02-06 17:31] VITALS: BP 135/67
[2017-02-06] MEDS: FINASTERIDE (PROSCAR) 5 MG TAB PO SCH (20:12)
[2017-02-06] MEDS: GABAPENTIN 300 MG (NEURONTIN) CAP PO SCH (20:12)
[2017-02-06] MEDS: ZOLPIDEM 5 MG (AMBIEN) TAB PO PRN (20:35)
[2017-02-06] MEDS: inSUlin DETERMIR 1 UNIT/0.01 ML (LEVEMIR) CHARGE PER UNIT SQ SCH (20:35)
[2017-02-07] MEDS: HYDROcodone/APAP 10 MG/325 MG (LORTAB) TAB PO PRN ×2 (04:04→20:43)
[2017-02-07 04:56] VITALS: BP 146/73
[2017-02-07 05:56] LABS: MEAN PLATELET VOLUME 9.2 FL (7.4-10.4); RED BLOOD COUNT 3.18 10^6/uL (4.35-5.85); RED CELL DISTRIBUTION WIDTH 15.7 % (10.0-14.5); WHITE BLOOD COUNT 7.5 10^3/uL (4.3-11.0)
[2017-02-07 06:12] LABS: ALANINE AMINOTRANSFERASE 16 U/L (0-55); ALBUMIN 2.8 G/DL (3.2-4.5); ANION GAP 9 MMOL/L (5-14); ASPARTATE AMINO TRANSFERASE 18 U/L (5-34); BILIRUBIN,TOTAL 0.3 MG/DL (0.1-1.0); BLOOD UREA NITROGEN 33 MG/DL (7-18); BUN/CREATININE RATIO 26; CALCIUM 9.9 MG/DL (8.5-10.1); CARBON DIOXIDE 26 MMOL/L (21-32); CHLORIDE 101 MMOL/L (98-107); CREATININE SERUM 1.27 MG/DL (0.60-1.30); GFR ESTIMATED > 60; GLUCOSE 68 MG/DL (70-105); POTASSIUM 4.9 MMOL/L (3.6-5.0); SODIUM 136 MMOL/L (135-145); TOTAL PROTEIN 6.9 G/DL (6.4-8.2)
[2017-02-07] MEDS: IBUPROFEN 800 MG (MOTRIN) TAB PO SCH ×4 (06:26→23:06)
[2017-02-07] MEDS: inSUlin (REGULAR) HUMAN 1 UNIT/0.01 ML (CHARGE PER UNIT) SC SCH ×4 (06:26→20:49)
[2017-02-07] MEDS: metFORMIN 500 MG (GLUCOPHAGE) TAB PO SCH ×2 (06:26→17:41)
--- NOTE | 2017-02-07 08:35 | Progress Note (SOAP) ---
Subjective Subjective/Events-last exam left BKA. Patient cannot explain why but does did not feel good today. Blood tests are okay. Patient denies GI problems, problems, heart problems, or lung problems Objective Exam Vital Signs Date Time Temp Pulse Resp B/P (MAP) Pulse Ox O2 Delivery O2 Flow Rate FiO2 02/07/17 04:56 97.3 83 18 146/73 96 Room Air 02/06/17 17:31 96.4 89 20 135/67 99 Room Air I & O 02/07/17 07:00 Intake Total 1200 ml Output Total 1400 ml Balance -200 ml Capillary Refill : General Appearance: No Apparent Distress, Thin HEENT: Normal ENT Inspection Neck: Normal Inspection Respiratory: Chest Non Tender, Lungs Clear, Normal Breath Sounds, No Accessory Muscle Use, No Respiratory Distress Cardiovascular: Regular Rate, Rhythm, No Murmur Gastrointestinal: non tender, soft Results Lab Laboratory Tests 02/07/17 05:23 Laboratory Tests 02/06/17 12:20: Glucometer 110 02/06/17 15:40: Stool Occult Blood Immunoassay NEGATIVE 02/06/17 16:28: Glucometer 243H 02/06/17 20:15: Glucometer 247H 02/07/17 05:23: White Blood Count 7.5, Red Blood Count 3.18L, Hemoglobin 8.1L, Hematocrit 26L, Mean Corpuscular Volume 82, Mean Corpuscular Hemoglobin 26, Mean Corpuscular Hemoglobin Concent 31L, Red Cell Distribution Width 15.7H, Platelet Count 660H, Mean Platelet Volume 9.2, Sodium Level 136, Potassium Level 4.9, Chloride Level 101, Carbon Dioxide Level 26, Anion Gap 9, Blood Urea Nitrogen 33H, Creatinine 1.27, Estimat Glomerular Filtration Rate > 60, BUN/Creatinine Ratio 26, Glucose Level 68L, Calcium Level 9.9, Total Bilirubin 0.3, Aspartate Amino Transf (AST/ SGOT) 18, Alanine Aminotransferase (ALT/SGPT) 16, Alkaline Phosphatase 85, Total Protein 6.9, Albumin 2.8L 02/07/17 06:25: Glucometer 83 Assessment/Plan Assessment/Plan Assess & Plan/Chief Complaint below the knee amputation. Diabetes. . 02/07/17. BKA. Diabetes. Nonspecific vague complaints Clinical Quality Measures DVT/VTE Risk/Contraindication: Risk Factor Score Per Nursin RFS Level Per Nursing on Admit: 4+=Very High TERRI TAVAREZ DO February 07, 2017 08:35
[2017-02-07] MEDS: ASPIRIN E.C. 325 MG (ECOTRIN) TABLET PO SCH (09:19)
[2017-02-07] MEDS: AMITRIPTYLINE 25 MG (ELAVIL) TAB PO SCH ×2 (09:19→20:43)
[2017-02-07] MEDS: DIGOXIN 0.25 MG (LANOXIN) TAB PO SCH (09:19)
[2017-02-07] MEDS: PRASUGREL 10 MG (EFFIENT) TABLET PO SCH (09:19)
[2017-02-07] MEDS: CARVEDILOL 12.5 MG (COREG) TABLET PO SCH ×2 (09:19→20:43)
[2017-02-07] MEDS: lisINopril 20 MG (ZESTRIL) TAB PO SCH (09:19)
--- NOTE | 2017-02-07 09:39 | Occupational Ther Daily Note ---
OT Current Status-Daily Note Subjective Pt in bed with physician present. Pt states he does not feel good today, but is unable to describe further. Pt is agreeable to treatment. Mental Status/Objective Functional [place] Measure 0=Not Assessed/NA 4=Minimal Assistance 1=Total Assistance 5=Supervision or Setup 2=Maximal Assistance 6=Modified [place] 3=Moderate Assistance 7=Complete [place] ADL-Treatment Pt supine to sit with SBA. Transfer to w/c with CGA. Pt completed sponge bath while seated in w/c. Upper body bathing completed with set up. Pt able to wash bilateral upper legs and right lower leg with SBA. Minimal assistance required for standing balance while washing buttocks and obey area. Don pullover shirt with set up. Pt donned underwear and pants with minimal assistance for balance during pant hike. Don right shoe with set up. Increased time required for bathing and dressing tasks. Pt completed grooming tasks with modified independence while seated at sink. W/c mobility in room with minimal assistance to maneuver in tight spaces. Pt requests to return to bed after session. Transfer w/c to EOB with CGA. Sitting EOB with needs met, bed alarm on, and RN present after session. Functional [place] Measure 0=Not Assessed/NA 4=Minimal Assistance 1=Total Assistance 5=Supervision or Setup 2=Maximal Assistance 6=Modified [place] 3=Moderate Assistance 7=Complete IndependenceIRFPAI Quality Coding Scale 6 Independent with activity with or without an assistive device 5 Patient requires set up or clean up by helper. Patient completes activity by themselves 4 Supervision or touching assist (CGA). [place] provide cues , steadying assist 3 The helper provides less than half the effort to complete the activity 2 The helper provides more than half the effort to complete the activity 1 Dependent. The helper does all the effort to complete an activity 7 Patient refused to complete or attempt activity 9 The patient did not perform the activity before the current illness or injury 88 Not attempted due to Medical conditions or safety concerns Grooming (FIM): 6 Bathing (FIM): 4 Upper Body (FIM): 5 Lower Body Dressing (FIM): 4 On/Off Footwear (QC): 5 OT Short Term Goals Short Term Goals Time Frame: February 13, 2017 Bathing(FIM): 5 Lower Body Dressing(FIM): 5 Toileting(FIM): 5 Transfers (B,C,W/C) (FIM): 5 Toilet/Commode Transfer(FIM): 5 Additional Short Term Goals: 1-Demonstrate ADL Tasks, 2-Verbalize Understanding , 3-ImproveStrength/Miranda 1=Demonstrate adherence to instructed precautions during ADL tasks. 2=Patient will verbalize/demonstrate understanding of assistive devices/ modifications for ADL. 3=Patient will improve strength/tolerance for activity to enable patient to perform ADL's. OT Group Home Goals Manager Mass Goals Time Frame: February 27, 2017 Eating (FIM): 6 Eating (QC): 6 Groomin Oral Hygiene (QC): 6 Bathing(FIM): 5 Shower/Bathe Self (QC): 5 Upper Body Dressing(FIM): 6 Upper Body Dressing (QC): 6 Lower Body Dressing(FIM): 6 Lower Body Dressing (QC): 6 On/Off Footwear (QC): 6 Toileting(FIM): 6 Toileting Hygiene (QC): 6 Toilet/Commode Transfer(FIM): 6 Toilet/Commode Transfer (QC): 6 Shower Transfer(FIM): 5 Additional Goals: 1-Demonstrate ADL Tasks, 2-Verbalize Understanding, 3- ImproveStrength/Miranda 1=Demonstrate adherence to instructed precautions during ADL tasks. 2=Patient will verbalize/demonstrate understanding of assistive devices/ modifications for ADL. 3=Patient will improve strength/tolerance for activity to enable patient to perform ADL's. OT Education/Plan Problem List/Assessment Pt s/p left BKA with decreased mobility, ADL functioning, and strength. Pt to benefit from skilled OT intervention for ADL training, transfers, strengthening , and home safety education to maximize level of function and allow safe discharge. Discharge Recommendations Plan/Recommendations: Continue POC Treatment Plan/Plan of Care Patient would benefit from OT for education, treatment and training to promote independence in ADL's, mobility, safety and/or upper extremity function for ADL' s. Plan of Care: ADL Retraining, Functional Mobility, Group Exercise/Act as Ind, UE Funct Exercise/Act Treatment Duration: February 27, 2017 Visits Per Week: 10-12 Minutes/Day (M-F): 60-90 Minutes/Day (Sat/Maier): PRN Agreement: Yes Rehab Potential: Good Time/GCodes Start Time: 08:30 Stop Time: 09:30 Total Time Billed (hr/min): 60 Billed Treatment Time 1 visit, ADLx4(60minutes) DARIO RUCKER OT February 07, 2017 09:38
--- NOTE | 2017-02-07 12:22 | Physical Therapy Daily Note ---
PT Daily Note-Current Subjective Patient in wheelchair pre tx, agrees to PT, states he has pain of 6/10 in left leg. Appearance Patient in bed post tx with nurse call, phone, tray, all needs met. Discussed with patient and nurse about him being independent in his room and if he is tired and thinks he needs some help, to go ahead and call nursing. Mental Status Patient Orientation: Normal For Age Transfers Functional [place] Measure 0=Not Assessed/NA 4=Minimal Assistance 1=Total Assistance 5=Supervision or Setup 2=Maximal Assistance 6=Modified [place] 3=Moderate Assistance 7=Complete IndependenceIRFPAI Quality Coding Scale 6 Independent with activity with or without an assistive device 5 Patient requires set up or clean up by helper. Patient completes activity by themselves 4 Supervision or touching assist (CGA). [place] provide cues , steadying assist 3 The helper provides less than half the effort to complete the activity 2 The helper provides more than half the effort to complete the activity 1 Dependent. The helper does all the effort to complete an activity 7 Patient refused to complete or attempt activity 9 The patient did not perform the activity before the current illness or injury 88 Not attempted due to Medical conditions or safety concerns Transfers (B, C, W/C) (FIM): 6 Scootin Rollin Supine to/from Sit: 6 Sit to/from Stand: 6 Bed to/from Chair: 6 Gait Training Gait (FIM): 1 Distance: 20'x2 Gait Level of Assist: 4 Gait Persons Needed: 1 Gait Assistive Device: FWW Wheelchair follow, patient ambulates 20' with a rolling walker with CGA, cues to take smaller steps, he lets the walker get too close to him. Wheelchair Training Wheelchair (FIM): 5 Distance: 150'x2 Wheelchair Level of Assist: 5 Type of Wheelchair: Manual Often will take corners too sharp and needs to readjust. Exercises prone left hip flexor stretch 5 min NuStep Minutes: 15 NuStep Workload: 4 Treatments bed mobility and transfers, ambulation, functional strengthening, wheelchair mobility Assessment Current Status: Fair Progress improving endurance, strength, transfers PT Short Term Goals Short Term Goals Time Frame: February 13, 2017 Transfers (B,C,W/C) (FIM): 5 Gait (FIM): 1 Gait Distance Comment: 30' Gait Level of Assist: 4 Gait Assistive Device: FWW Wheelchair Distance: 150'x2 PT Usp Goals Weaving Instructor Goals PT Weaving Instructor Goals Time Frame: February 27, 2017 Transfers (B,C,W/C) (FIM): 6 Sit to Lying (QC): 6 Lying-Sitting on Side/Bed(QC): 6 Sit to Stand (QC): 6 Rollin Roll Left to Right (QC): 6 Chair/Cvi-ip-Cgtbe Xfer(QC): 4 Car Transfer (QC): 4 Gait (FIM): 2 Distance: 50' Walk 10 feet (QC): 4 Walk 10ft-Uneven Surface(QC): 4 Walk 50ft with 2 Turns (QC): 4 Walk 150 ft (QC): 88 Gait Level of Assist: 5 Gait Assistive Device: FWW Wheelchair (FIM): 6 Distance: 150' Wheel 50 feet with 2 turns (QC: 6 PT Plan Problem List Problem List: Activity Tolerance, Functional Strength, Safety, Balance, Gait, Transfer Treatment/Plan Treatment Plan: Continue Plan of Care Treatment Plan: Bed Mobility, Education, Functional Activity Miranda, Functional Strength, Group Therapy, Gait, Safety, Therapeutic Exercise, Transfers Treatment Duration: February 27, 2017 Visits Per Week: 10-11 Minutes/Day (M-F): 60-90 Minutes/Day (Sat/Maier): 15-30 Safety Risks/Education Patient Education: Gait Training, Transfer Techniques, Correct Positioning, W/ C Management, Safety Issues Teaching Recipient: Patient Teaching Methods: Demonstration, Discussion Response to Teaching: Reinforcement Needed Time/GCodes Time In: 1100 Time Out: 1200 Total Billed Treatment Time: 60 Total Billed Treatment 1 visit EX 20' GT 15' WCH 15' FA 10' SAW PIÑA PT February 07, 2017 12:21
--- NOTE | 2017-02-07 12:29 | Occupational Ther Daily Note ---
OT Current Status-Daily Note Subjective Pt sitting EOB, agrees to treatment. Pt reports 6/10 left LE pain. Mental Status/Objective Functional [place] Measure 0=Not Assessed/NA 4=Minimal Assistance 1=Total Assistance 5=Supervision or Setup 2=Maximal Assistance 6=Modified [place] 3=Moderate Assistance 7=Complete [place] ADL-Treatment Pt donned right shoe without assist while seated EOB. Pt requests to use urinal. Pt able to manage clothing while seated EOB by weight shifting side to side. Pt able to use urinal without assistance, but requires assist to empty. Pt transferred to w/c with supervision. Functional [place] Measure 0=Not Assessed/NA 4=Minimal Assistance 1=Total Assistance 5=Supervision or Setup 2=Maximal Assistance 6=Modified [place] 3=Moderate Assistance 7=Complete IndependenceIRFPAI Quality Coding Scale 6 Independent with activity with or without an assistive device 5 Patient requires set up or clean up by helper. Patient completes activity by themselves 4 Supervision or touching assist (CGA). [place] provide cues , steadying assist 3 The helper provides less than half the effort to complete the activity 2 The helper provides more than half the effort to complete the activity 1 Dependent. The helper does all the effort to complete an activity 7 Patient refused to complete or attempt activity 9 The patient did not perform the activity before the current illness or injury 88 Not attempted due to Medical conditions or safety concerns Other Treatment Pt performed w/c mobility to therapy gym with cues for technique. Arm bike x10 minutes to increase overall strength and activity tolerance. Pt completed task with moderate resistance and slow pace. No rest breaks needed. Pt returned to room and transferred to EOB with supervision. Pt sitting EOB with needs met after session. OT Short Term Goals Short Term Goals Time Frame: February 13, 2017 Bathing(FIM): 5 Lower Body Dressing(FIM): 5 Toileting(FIM): 5 Transfers (B,C,W/C) (FIM): 5 Toilet/Commode Transfer(FIM): 5 Additional Short Term Goals: 1-Demonstrate ADL Tasks, 2-Verbalize Understanding , 3-ImproveStrength/Miranda 1=Demonstrate adherence to instructed precautions during ADL tasks. 2=Patient will verbalize/demonstrate understanding of assistive devices/ modifications for ADL. 3=Patient will improve strength/tolerance for activity to enable patient to perform ADL's. OT Halfway Goals Halfway Goals Time Frame: February 27, 2017 Eating (FIM): 6 Eating (QC): 6 Groomin Oral Hygiene (QC): 6 Bathing(FIM): 5 Shower/Bathe Self (QC): 5 Upper Body Dressing(FIM): 6 Upper Body Dressing (QC): 6 Lower Body Dressing(FIM): 6 Lower Body Dressing (QC): 6 On/Off Footwear (QC): 6 Toileting(FIM): 6 Toileting Hygiene (QC): 6 Toilet/Commode Transfer(FIM): 6 Toilet/Commode Transfer (QC): 6 Shower Transfer(FIM): 5 Additional Goals: 1-Demonstrate ADL Tasks, 2-Verbalize Understanding, 3- ImproveStrength/Miranda 1=Demonstrate adherence to instructed precautions during ADL tasks. 2=Patient will verbalize/demonstrate understanding of assistive devices/ modifications for ADL. 3=Patient will improve strength/tolerance for activity to enable patient to perform ADL's. OT Education/Plan Problem List/Assessment Pt s/p left BKA with decreased mobility, ADL functioning, and strength. Pt to benefit from skilled OT intervention for ADL training, transfers, strengthening , and home safety education to maximize level of function and allow safe discharge. Discharge Recommendations Plan/Recommendations: Continue POC Treatment Plan/Plan of Care Patient would benefit from OT for education, treatment and training to promote independence in ADL's, mobility, safety and/or upper extremity function for ADL' s. Plan of Care: ADL Retraining, Functional Mobility, Group Exercise/Act as Ind, UE Funct Exercise/Act Treatment Duration: February 27, 2017 Visits Per Week: 10-12 Minutes/Day (M-F): 60-90 Minutes/Day (Sat/Maier): PRN Agreement: Yes Rehab Potential: Good Time/GCodes Start Time: 10:30 Stop Time: 11:00 Total Time Billed (hr/min): 60 Billed Treatment Time 1 visit, ADL(15minutes), EX(15minutes) DARIO RUCKER OT February 07, 2017 12:29
--- NOTE | 2017-02-07 14:40 | Physical Therapy Daily Note ---
PT Daily Note-Current Subjective Patient is in bed and agrees to PT. 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 Pain Numeric Pain Scale: 3 Location: Left Location Body Site: Knee (BKA) Pain Description: Ache, Dull Mental Status Patient Orientation: Normal For Age Transfers Functional [place] Measure 0=Not Assessed/NA 4=Minimal Assistance 1=Total Assistance 5=Supervision or Setup 2=Maximal Assistance 6=Modified [place] 3=Moderate Assistance 7=Complete IndependenceIRFPAI Quality Coding Scale 6 Independent with activity with or without an assistive device 5 Patient requires set up or clean up by helper. Patient completes activity by themselves 4 Supervision or touching assist (CGA). [place] provide cues , steadying assist 3 The helper provides less than half the effort to complete the activity 2 The helper provides more than half the effort to complete the activity 1 Dependent. The helper does all the effort to complete an activity 7 Patient refused to complete or attempt activity 9 The patient did not perform the activity before the current illness or injury 88 Not attempted due to Medical conditions or safety concerns Transfers (B, C, W/C) (FIM): 6 Scootin Rollin Roll Left to Right (QC): 5 Supine to/from Sit: 6 Sit to/from Stand: 6 Sit to Lying (QC): 5 Sit to Stand (QC): 5 Chair/Qtn-gm-Legbi Xfer(QC): 5 Bed to/from Chair: 6 mod independent with SPT bed to w/c Wheelchair Training Does the Pt Use a Wheelchair?: Yes Wheelchair (FIM): 4 Wheelchair Distance: 3=150 ft Distance: 175' x 4 Wheelchair Level of Assist: 4 Wheel 50 ft with 2 turns (QC): 4 Wheel 150 ft (QC): 4 Type of Wheelchair: Manual fatigues quickly requiring recovery periods due to fatigue Assessment Patient tolerated treatment well and returned to room and bed with need met. PT to increase activity as tolerated. PT Short Term Goals Short Term Goals Time Frame: February 13, 2017 Transfers (B,C,W/C) (FIM): 5 Gait (FIM): 1 Gait Distance Comment: 30' Gait Level of Assist: 4 Gait Assistive Device: FWW Wheelchair Distance: 150'x2 PT Fpc Goals Fpc Goals PT Bonding Machine Operator Goals Time Frame: February 27, 2017 Transfers (B,C,W/C) (FIM): 6 Sit to Lying (QC): 6 Lying-Sitting on Side/Bed(QC): 6 Sit to Stand (QC): 6 Rollin Roll Left to Right (QC): 6 Chair/Wyq-rp-Etity Xfer(QC): 4 Car Transfer (QC): 4 Gait (FIM): 2 Distance: 50' Walk 10 feet (QC): 4 Walk 10ft-Uneven Surface(QC): 4 Walk 50ft with 2 Turns (QC): 4 Walk 150 ft (QC): 88 Gait Level of Assist: 5 Gait Assistive Device: FWW Wheelchair (FIM): 6 Distance: 150' Wheel 50 feet with 2 turns (QC: 6 PT Plan Treatment/Plan Treatment Plan: Continue Plan of Care Treatment Plan: Bed Mobility, Education, Functional Activity Miranda, Functional Strength, Group Therapy, Gait, Safety, Therapeutic Exercise, Transfers Treatment Duration: February 27, 2017 Visits Per Week: 10-11 Minutes/Day (M-F): 60-90 Minutes/Day (Sat/Maier): 15-30 Time/GCodes Time In: 1355 Time Out: 1425 Total Billed Treatment Time: 30 Total Billed Treatment [address] [facility] x 2 30 min MARYANN MARQUEZ PT February 07, 2017 14:40
[2017-02-07 18:11] VITALS: BP 136/70
[2017-02-07] MEDS: FINASTERIDE (PROSCAR) 5 MG TAB PO SCH (20:43)
[2017-02-07] MEDS: inSUlin DETERMIR 1 UNIT/0.01 ML (LEVEMIR) CHARGE PER UNIT SQ SCH (20:43)
[2017-02-07] MEDS: GABAPENTIN 300 MG (NEURONTIN) CAP PO SCH (20:43)
[2017-02-07] MEDS: ZOLPIDEM 5 MG (AMBIEN) TAB PO PRN (23:06)
[2017-02-08 05:00] VITALS: BP 130/61
[2017-02-08 05:49] LABS: BASOPHILS % (AUTO) 1 % (0-10); EOSINOPHILS # (AUTO) 0.4 10^3/uL (0.0-0.3); EOSINOPHILS % (AUTO) 5 % (0-10); LYMPHOCYTES # (AUTO) 1.6 X 10^3 (1.0-4.0); LYMPHOCYTES % (AUTO) 21 % (12-44); MEAN CORPUSCULAR HEMOGLOBIN 26 PG (25-34); MEAN CORPUSCULAR HGB CONC 31 G/DL (32-36); MEAN CORPUSCULAR VOLUME 83 FL (80-99); MONOCYTES # (AUTO) 0.7 X 10^3 (0.0-1.0); MONOCYTES % (AUTO) 9 % (0-12); NEUTROPHILS # (AUTO) 4.7 X 10^3 (1.8-7.8); NEUTROPHILS % (AUTO) 64 % (42-75); PLATELET COUNT 602 10^3/uL (130-400); RED BLOOD COUNT 2.94 10^6/uL (4.35-5.85); RED CELL DISTRIBUTION WIDTH 15.8 % (10.0-14.5); WHITE BLOOD COUNT 7.4 10^3/uL (4.3-11.0)
[2017-02-08 06:00] LABS: CALCIUM 9.8 MG/DL (8.5-10.1); CREATININE SERUM 1.5 MG/DL (0.60-1.30)
[2017-02-08] MEDS: metFORMIN 500 MG (GLUCOPHAGE) TAB PO SCH ×2 (06:08→17:34)
[2017-02-08] MEDS: IBUPROFEN 800 MG (MOTRIN) TAB PO SCH ×3 (06:08→21:11)
[2017-02-08] MEDS: inSUlin (REGULAR) HUMAN 1 UNIT/0.01 ML (CHARGE PER UNIT) SC SCH ×4 (06:08→21:11)
--- NOTE | 2017-02-08 08:06 | Progress Note (SOAP) ---
Subjective Subjective/Events-last exam BKA. Diabetes. Anemia. Patient feeling much better today. Patient ready for physical therapy and occupational therapy. Patient did well yesterday with therapies Objective Exam Vital Signs Date Time Temp Pulse Resp B/P (MAP) Pulse Ox O2 Delivery O2 Flow Rate FiO2 02/08/17 05:00 99.3 79 20 130/61 98 Room Air 02/07/17 18:11 97.1 80 16 136/70 98 Room Air I & O 02/08/17 07:00 Intake Total 800 ml Output Total 1975 ml Balance -1175 ml Capillary Refill : General Appearance: No Apparent Distress, Thin HEENT: Normal ENT Inspection Neck: Normal Inspection Respiratory: Chest Non Tender, Lungs Clear, Normal Breath Sounds, No Accessory Muscle Use, No Respiratory Distress Cardiovascular: Regular Rate, Rhythm, No Murmur Gastrointestinal: non tender, soft Results Lab Laboratory Tests 02/08/17 05:34 Laboratory Tests 02/07/17 11:07: Glucometer 94 02/07/17 15:56: Glucometer 151H 02/07/17 20:08: Glucometer 228H 02/08/17 05:34: White Blood Count 7.4, Red Blood Count 2.94L, Hemoglobin 7.5L, Hematocrit 24L, Mean Corpuscular Volume 83, Mean Corpuscular Hemoglobin 26, Mean Corpuscular Hemoglobin Concent 31L, Red Cell Distribution Width 15.8H, Platelet Count 602H, Mean Platelet Volume 9.0, Neutrophils (%) (Auto) 64, Lymphocytes (%) (Auto) 21, Monocytes (%) (Auto) 9, Eosinophils (%) (Auto) 5, Basophils (%) (Auto) 1, Neutrophils # (Auto) 4.7, Lymphocytes # (Auto) 1.6, Monocytes # (Auto) 0.7, Eosinophils # (Auto) 0.4H, Basophils # (Auto) 0.0, Sodium Level 138, Potassium Level 5.0, Chloride Level 106, Carbon Dioxide Level 23, Anion Gap 9, Blood Urea Nitrogen 35H, Creatinine 1.50H, Estimat Glomerular Filtration Rate 56, BUN/ Creatinine Ratio 23, Glucose Level 55*L, Calcium Level 9.8 02/08/17 06:06: Glucometer 70 Assessment/Plan Assessment/Plan Assess & Plan/Chief Complaint below the knee amputation. Diabetes. . 02/07/17. BKA. Diabetes. Nonspecific vague complaints. . 02/08/17 below the knee amputation. Diabetes. Patient feeling much better today. Patient did well with physical and occupational therapy yesterday Patient a work in progress Clinical Quality Measures DVT/VTE Risk/Contraindication: Risk Factor Score Per Nursin RFS Level Per Nursing on Admit: 4+=Very High TERRI TAVAREZ DO February 08, 2017 08:06
[2017-02-08 09:18] VITALS: BP 126/66
[2017-02-08] MEDS: DIGOXIN 0.25 MG (LANOXIN) TAB PO SCH (09:19)
[2017-02-08] MEDS: AMITRIPTYLINE 25 MG (ELAVIL) TAB PO SCH ×2 (09:19→21:11)
[2017-02-08] MEDS: CARVEDILOL 12.5 MG (COREG) TABLET PO SCH ×2 (09:19→21:11)
[2017-02-08] MEDS: lisINopril 20 MG (ZESTRIL) TAB PO SCH (09:19)
[2017-02-08] MEDS: ASPIRIN E.C. 325 MG (ECOTRIN) TABLET PO SCH (09:19)
[2017-02-08] MEDS: PRASUGREL 10 MG (EFFIENT) TABLET PO SCH (09:19)
[2017-02-08] MEDS: HYDROcodone/APAP 10 MG/325 MG (LORTAB) TAB PO PRN ×2 (09:22→17:34)
--- NOTE | 2017-02-08 11:04 | Physical Therapy Daily Note ---
PT Daily Note-Current Subjective Pt. agrees to rx. No real c/o . Does have some phantom pain. Very motivated by his brother in law who is also an amputee and doing very well Pain Numeric Pain Scale: 0-No Pain Mental Status Patient Orientation: Normal For Age Attachments: Other-See Comments (amputee slint) Transfers Functional [place] Measure 0=Not Assessed/NA 4=Minimal Assistance 1=Total Assistance 5=Supervision or Setup 2=Maximal Assistance 6=Modified [place] 3=Moderate Assistance 7=Complete IndependenceIRFPAI Quality Coding Scale 6 Independent with activity with or without an assistive device 5 Patient requires set up or clean up by helper. Patient completes activity by themselves 4 Supervision or touching assist (CGA). [place] provide cues , steadying assist 3 The helper provides less than half the effort to complete the activity 2 The helper provides more than half the effort to complete the activity 1 Dependent. The helper does all the effort to complete an activity 7 Patient refused to complete or attempt activity 9 The patient did not perform the activity before the current illness or injury 88 Not attempted due to Medical conditions or safety concerns Transfers (B, C, W/C) (FIM): 5 Scootin Rollin Supine to/from Sit: 5 Sit to/from Stand: 5 Bed to/from Chair: 5 Gait Training Does the Patient Walk?: Yes Gait (FIM): 2 Distance (FIM): 7=386-59 ft (50ftx3) Gait Level of Assist: 4 Gait Persons Needed: 1 Gait Assistive Device: FWW pt. shares that he has Hx of back surgeries and back problems and after approx 15 ft pt. begins to bend at hips and is flexed during gait Exercises Supine Ex: Bridging, Ankle pumps, Quad Set, Rolling, Glut sets, Heel Slides, Short Arc Quads, Scooting, Straight leg raise, Hip abd/add Supine Reps: 15 side lying and prone amputee ther ex as well for hip extension and ham curls Treatments donns brace indep x3 Assessment Current Status: Good Progress PT Short Term Goals Short Term Goals Time Frame: February 13, 2017 Transfers (B,C,W/C) (FIM): 5 Gait (FIM): 1 Gait Distance Comment: 30' Gait Level of Assist: 4 Gait Assistive Device: FWW Wheelchair Distance: 175' x 4 PT Commercial Review Appraiser Goals Commercial Review Appraiser Goals PT Chcf Goals Time Frame: February 27, 2017 Transfers (B,C,W/C) (FIM): 6 Sit to Lying (QC): 6 Lying-Sitting on Side/Bed(QC): 6 Sit to Stand (QC): 6 Rollin Roll Left to Right (QC): 6 Chair/Zqg-ix-Hfnfd Xfer(QC): 4 Car Transfer (QC): 4 Gait (FIM): 2 Distance: 50' Walk 10 feet (QC): 4 Walk 10ft-Uneven Surface(QC): 4 Walk 50ft with 2 Turns (QC): 4 Walk 150 ft (QC): 88 Gait Level of Assist: 5 Gait Assistive Device: FWW Wheelchair (FIM): 6 Distance: 150' Wheel 50 feet with 2 turns (QC: 6 PT Plan Treatment/Plan Treatment Plan: Continue Plan of Care Treatment Plan: Bed Mobility, Education, Functional Activity Miranda, Functional Strength, Group Therapy, Gait, Safety, Therapeutic Exercise, Transfers Treatment Duration: February 27, 2017 Visits Per Week: 10-11 Minutes/Day (M-F): 60-90 Minutes/Day (Sat/Maier): 15-30 Safety Risks/Education Patient Education: Gait Training, Transfer Techniques Teaching Recipient: Patient Teaching Methods: Demonstration, Discussion Response to Teaching: Verbalize Understanding, Return Demonstration, Reinforcement Needed Time/GCodes Time In: 1000 Time Out: 1100 Total Billed Treatment Time: 60 Total Billed Treatment 1,EX30m,FA15m,GT15m G Codes Necessary: DIONNE Martínez FULFILLMENT ASSOCIATE February 08, 2017 11:04
--- NOTE | 2017-02-08 11:07 | Occupational Ther Daily Note ---
OT Current Status-Daily Note Subjective Pt sitting EOB, agrees to treatment. Pt reports 4/10 pain in left LE. Mental Status/Objective Functional [place] Measure 0=Not Assessed/NA 4=Minimal Assistance 1=Total Assistance 5=Supervision or Setup 2=Maximal Assistance 6=Modified [place] 3=Moderate Assistance 7=Complete [place] ADL-Treatment Pt sitting EOB eating breakfast when therapist arrives. assisted pt to open packages. Pt requests shower today. RN states pt okay to shower with left residual limb covered to prevent getting wet. Pt transferred EOB to w/c with modified independence. To restroom via w/c. Pt transferred w/c <-> shower bench with SBA using grab bars for safety. Pt completed bathing seated on shower bench. Pt able to wash/dry all areas with increased time. Pt weight shifted left and right to wash buttocks rather than standing. Pt donned pullover shirt with set up. Donned underwear and pants with minimal assistance for balance during pant hike. Pt donned right sock with minimal assistance. Donned shoe with set up. Grooming tasks completed seated at sink. Pt completed oral care with modified independence. Pt requires increased time for all ADL tasks. Pt requests to remain seated in w/c after session. All needs met. Functional [place] Measure 0=Not Assessed/NA 4=Minimal Assistance 1=Total Assistance 5=Supervision or Setup 2=Maximal Assistance 6=Modified [place] 3=Moderate Assistance 7=Complete IndependenceIRFPAI Quality Coding Scale 6 Independent with activity with or without an assistive device 5 Patient requires set up or clean up by helper. Patient completes activity by themselves 4 Supervision or touching assist (CGA). [place] provide cues , steadying assist 3 The helper provides less than half the effort to complete the activity 2 The helper provides more than half the effort to complete the activity 1 Dependent. The helper does all the effort to complete an activity 7 Patient refused to complete or attempt activity 9 The patient did not perform the activity before the current illness or injury 88 Not attempted due to Medical conditions or safety concerns Eating (FIM): 5 Eating (QC): 5 Grooming (FIM): 6 Oral Hygiene (QC): 6 Bathing (FIM): 5 Shower/Bathe Self (QC): 5 Upper Body (FIM): 5 Upper Body Dressing (QC): 5 Lower Body Dressing (FIM): 4 Lower Body Dressing (QC): 3 Shower Transfer(FIM): 5 OT Short Term Goals Short Term Goals Time Frame: February 13, 2017 Bathing(FIM): 5 Lower Body Dressing(FIM): 5 Toileting(FIM): 5 Transfers (B,C,W/C) (FIM): 5 Toilet/Commode Transfer(FIM): 5 Additional Short Term Goals: 1-Demonstrate ADL Tasks, 2-Verbalize Understanding , 3-ImproveStrength/Miranda 1=Demonstrate adherence to instructed precautions during ADL tasks. 2=Patient will verbalize/demonstrate understanding of assistive devices/ modifications for ADL. 3=Patient will improve strength/tolerance for activity to enable patient to perform ADL's. OT Electronic Prepress Operator Goals Chcf Goals Time Frame: February 27, 2017 Eating (FIM): 6 Eating (QC): 6 Groomin Oral Hygiene (QC): 6 Bathing(FIM): 5 Shower/Bathe Self (QC): 5 Upper Body Dressing(FIM): 6 Upper Body Dressing (QC): 6 Lower Body Dressing(FIM): 6 Lower Body Dressing (QC): 6 On/Off Footwear (QC): 6 Toileting(FIM): 6 Toileting Hygiene (QC): 6 Toilet/Commode Transfer(FIM): 6 Toilet/Commode Transfer (QC): 6 Shower Transfer(FIM): 5 Additional Goals: 1-Demonstrate ADL Tasks, 2-Verbalize Understanding, 3- ImproveStrength/Miranda 1=Demonstrate adherence to instructed precautions during ADL tasks. 2=Patient will verbalize/demonstrate understanding of assistive devices/ modifications for ADL. 3=Patient will improve strength/tolerance for activity to enable patient to perform ADL's. OT Education/Plan Problem List/Assessment Pt s/p left BKA with decreased mobility, ADL functioning, and strength. Pt to benefit from skilled OT intervention for ADL training, transfers, strengthening , and home safety education to maximize level of function and allow safe discharge. Discharge Recommendations Plan/Recommendations: Continue POC Treatment Plan/Plan of Care Patient would benefit from OT for education, treatment and training to promote independence in ADL's, mobility, safety and/or upper extremity function for ADL' s. Plan of Care: ADL Retraining, Functional Mobility, Group Exercise/Act as Ind, UE Funct Exercise/Act Treatment Duration: February 27, 2017 Visits Per Week: 10-12 Minutes/Day (M-F): 60-90 Minutes/Day (Sat/Maier): PRN Agreement: Yes Rehab Potential: Good Time/GCodes Start Time: 08:00 Stop Time: 09:30 Total Time Billed (hr/min): 90 Billed Treatment Time 1 visit, ADLx6(90minutes) DARIO RUCKER OT February 08, 2017 11:07
--- NOTE | 2017-02-08 13:20 | Physical Therapy Daily Note ---
PT Daily Note-Current Subjective Pt. in bed asleep, cant remember whether he ordered and ate lunch or not. Pain Numeric Pain Scale: 0-No Pain Appearance groggy Mental Status Patient Orientation: Normal For Age pt. donned shoe right and stump protector splint indep Transfers Functional [place] Measure 0=Not Assessed/NA 4=Minimal Assistance 1=Total Assistance 5=Supervision or Setup 2=Maximal Assistance 6=Modified [place] 3=Moderate Assistance 7=Complete IndependenceIRFPAI Quality Coding Scale 6 Independent with activity with or without an assistive device 5 Patient requires set up or clean up by helper. Patient completes activity by themselves 4 Supervision or touching assist (CGA). [place] provide cues , steadying assist 3 The helper provides less than half the effort to complete the activity 2 The helper provides more than half the effort to complete the activity 1 Dependent. The helper does all the effort to complete an activity 7 Patient refused to complete or attempt activity 9 The patient did not perform the activity before the current illness or injury 88 Not attempted due to Medical conditions or safety concerns sup to sit and sit to stand all CGA, SPT bed to chair all CGA with FWW Gait Training Does the Patient Walk?: Yes Gait Assistive Device: FWW gait 30ft x 3 FWW, continues to flex at hips after about 10ft. Exercises Seated Therapy Exercises: Ankle pumps, Sit to stand, Long arc quads, Hip flexion Seated Reps: 12 Assessment Current Status: Good Progress progressing well PT Short Term Goals Short Term Goals Time Frame: February 13, 2017 Transfers (B,C,W/C) (FIM): 5 Gait (FIM): 1 Gait Distance Comment: 30' Gait Level of Assist: 4 Gait Assistive Device: FWW Wheelchair Distance: 175' x 4 PT Communications Editor Goals Communications Editor Goals PT Retirement Goals Time Frame: February 27, 2017 Transfers (B,C,W/C) (FIM): 6 Sit to Lying (QC): 6 Lying-Sitting on Side/Bed(QC): 6 Sit to Stand (QC): 6 Rollin Roll Left to Right (QC): 6 Chair/Oyy-hn-Uogbn Xfer(QC): 4 Car Transfer (QC): 4 Gait (FIM): 2 Distance: 50' Walk 10 feet (QC): 4 Walk 10ft-Uneven Surface(QC): 4 Walk 50ft with 2 Turns (QC): 4 Walk 150 ft (QC): 88 Gait Level of Assist: 5 Gait Assistive Device: FWW Wheelchair (FIM): 6 Distance: 150' Wheel 50 feet with 2 turns (QC: 6 PT Plan Treatment/Plan Treatment Plan: Continue Plan of Care Treatment Plan: Bed Mobility, Education, Functional Activity Miranda, Functional Strength, Group Therapy, Gait, Safety, Therapeutic Exercise, Transfers Treatment Duration: February 27, 2017 Visits Per Week: 10-11 Minutes/Day (M-F): 60-90 Minutes/Day (Sat/Maier): 15-30 Safety Risks/Education Patient Education: Gait Training, Transfer Techniques, Issued Written HEP, Correct Positioning, Disease Process, Safety Issues Teaching Recipient: Patient Teaching Methods: Demonstration, Discussion Response to Teaching: Verbalize Understanding, Return Demonstration, Reinforcement Needed (for alignment) Time/GCodes Time In: 1250 Time Out: 1320 Total Billed Treatment Time: 30 Total Billed Treatment 1,GT30m G Codes Necessary: DIONNE Martínez FILLING HAND February 08, 2017 13:20
[2017-02-08 18:30] VITALS: BP 160/69
--- NOTE | 2017-02-08 19:27 | Individualized Plan of Care ---
Individualized Plan of Care Rehab Nursing IPOC Order Admission Date February 05, 2017 at 16:25 Current Orders Orders Insulin Determir (Per Unit) (Levemir (Pe (02/08/17 21:00) Cbc No Diff (02/09/17 06:00) Ibuprofen Tablet (Motrin Tablet) (02/08/17 14:00) Basic Metabolic Panel (02/09/17 06:00) Patient Visit (02/08/17 ) Exercise Therap, Ea 15 Min (02/08/17 ) Functional Activities, Ea 15 (02/08/17 ) Gait Training, Ea 15 Min (02/08/17 ) Rehab Nursing Orders: Diseage Management, Edu in Press Rel Techn, Hydration Management, Nutrition Management, Pain Management Toilet every (bladder): (hrs): 2 hours while Wke prn PT IPOC Problem List: Activity Tolerance, Functional Strength, Safety, Balance, Gait, Transfer Treatment Plan: Continue Plan of Care Bed Mobility, Education, Functional Activity Miranda, Functional Strength, Group Therapy, Gait, Safety, Therapeutic Exercise, Transfers Treatment Duration: February 27, 2017 Visits Per Week: 10-11 Minutes/Day (M-F): 60-90 Minutes/Day (Sat/Maier): 15-30 OT IPOC Problems: Decreased Activ Tolerance, Decreased UE Strength, Dependent Transfers , Impaired Self-Care Skills OT Problems Pt s/p left BKA with decreased mobility, ADL functioning, and strength. Pt to benefit from skilled OT intervention for ADL training, transfers, strengthening , and home safety education to maximize level of function and allow safe discharge. Plan of Care: ADL Retraining, Functional Mobility, Group Exercise/Act as Ind, UE Funct Exercise/Act Treatment Duration: February 27, 2017 Visits Per Week: 10-12 Minutes/Day (M-F): 60-90 Minutes/Day (Sat/Maier): PRN ST IPOC Speech Therapy Treatment Plan: Discontinue ST Physician IPOC Medical Issues being managed closely and that require the 24 hour availability of a physician:wound care IDDM Postop anemia Medical Issues: DVT Prophylaxis, Falls Precautions, Fluid/Electrolyte/ Nutrition Balance, Infection Protection, Pain Management, Weight Bearing Precautions, Wound Care, Other (List) Brief Synthesis of Preadmission Screen, Post-Admission Evaluation, and Therapy Evaluations:71 yo male s/p left BKA with hx of IDDM,Has postop anemia slowly improving.Had been Independent and living with spouse prior to this Medical Prognosis: good Anticipated Length of Stay: 02-27-17 Rehab Goals Modified Independent for adls and mobility skills at the W/C level of function initially due to recent left BKA Anticipated discharge destinat: Home with spouse and [facility] JOHNIE RANDALL MD February 08, 2017 19:27
[2017-02-08] MEDS: GABAPENTIN 300 MG (NEURONTIN) CAP PO SCH (21:11)
[2017-02-08] MEDS: FINASTERIDE (PROSCAR) 5 MG TAB PO SCH (21:11)
[2017-02-08] MEDS: inSUlin DETERMIR 1 UNIT/0.01 ML (LEVEMIR) CHARGE PER UNIT SQ SCH (21:12)
[2017-02-09] MEDS: HYDROcodone/APAP 10 MG/325 MG (LORTAB) TAB PO PRN (00:18)
[2017-02-09 05:00] VITALS: BP 127/59
[2017-02-09 06:00] LABS: MEAN PLATELET VOLUME 9.4 FL (7.4-10.4); RED BLOOD COUNT 3.33 10^6/uL (4.35-5.85); RED CELL DISTRIBUTION WIDTH 15.8 % (10.0-14.5)
[2017-02-09 06:49] LABS: CALCIUM 10.2 MG/DL (8.5-10.1); CREATININE SERUM 1.7 MG/DL (0.60-1.30); POTASSIUM 5.4 MMOL/L (3.6-5.0)
[2017-02-09] MEDS: inSUlin (REGULAR) HUMAN 1 UNIT/0.01 ML (CHARGE PER UNIT) SC SCH ×4 (06:53→20:23)
[2017-02-09] MEDS: IBUPROFEN 800 MG (MOTRIN) TAB PO SCH ×3 (06:54→22:05)
[2017-02-09] MEDS: metFORMIN 500 MG (GLUCOPHAGE) TAB PO SCH ×2 (06:54→17:43)
[2017-02-09] MEDS: DIGOXIN 0.25 MG (LANOXIN) TAB PO SCH (08:40)
[2017-02-09] MEDS: PRASUGREL 10 MG (EFFIENT) TABLET PO SCH (08:42)
[2017-02-09] MEDS: CARVEDILOL 12.5 MG (COREG) TABLET PO SCH ×2 (08:42→20:38)
[2017-02-09] MEDS: lisINopril 20 MG (ZESTRIL) TAB PO SCH (08:42)
[2017-02-09] MEDS: AMITRIPTYLINE 25 MG (ELAVIL) TAB PO SCH ×2 (08:42→20:37)
[2017-02-09] MEDS: ASPIRIN E.C. 325 MG (ECOTRIN) TABLET PO SCH (08:42)
--- NOTE | 2017-02-09 11:55 | Physical Therapy Daily Note ---
PT Daily Note-Current Subjective Pt. states he didnt sleep that well. Had a bath and feeling very relaxed and warm after that. Agrees to Rx. Requests rest periods today during Rx. Pain Numeric Pain Scale: 0-No Pain Appearance pt. more comfortable with his residual limb, with splint protector off pt. touches and palpates all aspects of his distal limb. Mental Status Patient Orientation: Normal For Age Attachments: Other-See Comments (splint/protector) Transfers Functional [place] Measure 0=Not Assessed/NA 4=Minimal Assistance 1=Total Assistance 5=Supervision or Setup 2=Maximal Assistance 6=Modified [place] 3=Moderate Assistance 7=Complete IndependenceIRFPAI Quality Coding Scale 6 Independent with activity with or without an assistive device 5 Patient requires set up or clean up by helper. Patient completes activity by themselves 4 Supervision or touching assist (CGA). [place] provide cues , steadying assist 3 The helper provides less than half the effort to complete the activity 2 The helper provides more than half the effort to complete the activity 1 Dependent. The helper does all the effort to complete an activity 7 Patient refused to complete or attempt activity 9 The patient did not perform the activity before the current illness or injury 88 Not attempted due to Medical conditions or safety concerns Transfers (B, C, W/C) (FIM): 5 Scootin Rollin Supine to/from Sit: 6 Sit to/from Stand: 5 Bed to/from Chair: 5 needs occas cues to use UEs safely, on arms of chair etc Gait Training Does the Patient Walk?: Yes Gait (FIM): 2 Distance (FIM): 8=113-54 ft (50-75ftx4) Gait Level of Assist: 4 (w/c to f/u) Gait Persons Needed: 1 Gait Assistive Device: FWW slow and slowly flexes at hips lower and lower during gait. pt ambulated 25ft up and down ramp this date as pt had ramp installed at his home. SBA to CGA for gait on ramp Wheelchair Training Does the Pt Use a Wheelchair?: Yes Wheelchair (FIM): 5 Wheelchair Distance: 3=150 ft (150x2) Wheelchair Level of Assist: 5 Type of Wheelchair: Manual does well with w/c but needs to rest occas this morning. w/c up down ramp 30ft x2 all with SBA Exercises Supine Ex: Bridging, Ankle pumps, Quad Set, Rolling, Glut sets, Heel Slides, Short Arc Quads, Scooting, Straight leg raise, Hip abd/add Supine Reps: 20 NuStep Minutes: 10 NuStep Workload: 1 Assessment Current Status: Good Progress pt. fatigued today PT Short Term Goals Short Term Goals Time Frame: February 13, 2017 Transfers (B,C,W/C) (FIM): 5 Gait (FIM): 1 Gait Distance Comment: 30' Gait Level of Assist: 4 Gait Assistive Device: FWW Wheelchair Distance: 175' x 4 PT Group Home Goals Group Home Goals PT Group Home Goals Time Frame: February 27, 2017 Transfers (B,C,W/C) (FIM): 6 Sit to Lying (QC): 6 Lying-Sitting on Side/Bed(QC): 6 Sit to Stand (QC): 6 Rollin Roll Left to Right (QC): 6 Chair/Wvw-tc-Fxizh Xfer(QC): 4 Car Transfer (QC): 4 Gait (FIM): 2 Distance: 50' Walk 10 feet (QC): 4 Walk 10ft-Uneven Surface(QC): 4 Walk 50ft with 2 Turns (QC): 4 Walk 150 ft (QC): 88 Gait Level of Assist: 5 Gait Assistive Device: FWW Wheelchair (FIM): 6 Distance: 150' Wheel 50 feet with 2 turns (QC: 6 PT Plan Treatment/Plan Treatment Plan: Continue Plan of Care Treatment Plan: Bed Mobility, Education, Functional Activity Miranda, Functional Strength, Group Therapy, Gait, Safety, Therapeutic Exercise, Transfers Treatment Duration: February 27, 2017 Visits Per Week: 10-11 Minutes/Day (M-F): 60-90 Minutes/Day (Sat/Maier): 15-30 Safety Risks/Education Patient Education: Gait Training, Transfer Techniques, Correct Positioning, W/ C Management, Safety Issues Teaching Recipient: Patient Teaching Methods: Demonstration, Discussion Response to Teaching: Verbalize Understanding, Return Demonstration, Reinforcement Needed Time/GCodes Time In: 1015 Time Out: 1145 Total Billed Treatment Time: 90 Total Billed Treatment 1,FA15m,WCH15m,EX30m,GT30m G Codes Necessary: DIONNE Martínez CASE MGR February 09, 2017 11:55
--- NOTE | 2017-02-09 12:14 | Occupational Ther Daily Note ---
OT Current Status-Daily Note Subjective Pt seen in room, up in bed, agreeable to OT. No pain mentioned. Appearance Alert, cooperative Mental Status/Objective Functional [place] Measure 0=Not Assessed/NA 4=Minimal Assistance 1=Total Assistance 5=Supervision or Setup 2=Maximal Assistance 6=Modified [place] 3=Moderate Assistance 7=Complete [place] ADL-Treatment Skilled cues for sit to stand, hand placement, FWW. Walked CGA, FWW to bathroom for shower transfer. After shower, pt transferred into w/c to complete dressing and grooming. Residual limb covered with plastic for shower. Functional [place] Measure 0=Not Assessed/NA 4=Minimal Assistance 1=Total Assistance 5=Supervision or Setup 2=Maximal Assistance 6=Modified [place] 3=Moderate Assistance 7=Complete IndependenceIRFPAI Quality Coding Scale 6 Independent with activity with or without an assistive device 5 Patient requires set up or clean up by helper. Patient completes activity by themselves 4 Supervision or touching assist (CGA). [place] provide cues , steadying assist 3 The helper provides less than half the effort to complete the activity 2 The helper provides more than half the effort to complete the activity 1 Dependent. The helper does all the effort to complete an activity 7 Patient refused to complete or attempt activity 9 The patient did not perform the activity before the current illness or injury 88 Not attempted due to Medical conditions or safety concerns Grooming (FIM): 6 (Mod I, w/c level at sink. Washed and dried hands and face during shower. ) Bathing (FIM): 5 (Setup. Pt washed and dried all parts, including bottom ( leaned to side). Shower bench, grab bars. hand held shower) Upper Body (FIM): 5 (setup) Lower Body Dressing (FIM): 5 (setup, SBA. Able to get sock off and on, as well as shoe. Able to apply brace himself, with setup. Stood to pull pants up, balancing at sink. SBA) Shower Transfer(FIM): 5 (SBA. shower bench, grab bar. From standing with FWW. ) Other Treatment Pt propelled himself to gym, per w/c. Locked brakes himself but skilled cue needed earlier to lock brakes. Pt did 15 minutes bilat Ue ex on arm bike set at 15W resistance, with one brief break for a drink. Steady pace. UE ex to strengthen arms as needed for transfers and standing during ADLs. Pt educ on balance for standing during ADLs. Pt returned to room per w/c, transferred to bed without help, locking brakes. Pt left up in bed, all needs met. Education OT Patient Education: Exercise program, Purpose of tx/functional activities, Safety issues, Other (balance during ADLs) Teaching Recipient: Patient Teaching Methods: Discussion Response to Teaching: Verbalize Understanding OT Short Term Goals Short Term Goals Time Frame: February 13, 2017 Bathing(FIM): 5 Lower Body Dressing(FIM): 5 Toileting(FIM): 5 Transfers (B,C,W/C) (FIM): 5 Toilet/Commode Transfer(FIM): 5 Additional Short Term Goals: 1-Demonstrate ADL Tasks, 2-Verbalize Understanding , 3-ImproveStrength/Miranda 1=Demonstrate adherence to instructed precautions during ADL tasks. 2=Patient will verbalize/demonstrate understanding of assistive devices/ modifications for ADL. 3=Patient will improve strength/tolerance for activity to enable patient to perform ADL's. OT Bilingual Account Manager Goals Bilingual Account Manager Goals Time Frame: February 27, 2017 Eating (FIM): 6 Eating (QC): 6 Groomin Oral Hygiene (QC): 6 Bathing(FIM): 5 Shower/Bathe Self (QC): 5 Upper Body Dressing(FIM): 6 Upper Body Dressing (QC): 6 Lower Body Dressing(FIM): 6 Lower Body Dressing (QC): 6 On/Off Footwear (QC): 6 Toileting(FIM): 6 Toileting Hygiene (QC): 6 Toilet/Commode Transfer(FIM): 6 Toilet/Commode Transfer (QC): 6 Shower Transfer(FIM): 5 Additional Goals: 1-Demonstrate ADL Tasks, 2-Verbalize Understanding, 3- ImproveStrength/Miranda 1=Demonstrate adherence to instructed precautions during ADL tasks. 2=Patient will verbalize/demonstrate understanding of assistive devices/ modifications for ADL. 3=Patient will improve strength/tolerance for activity to enable patient to perform ADL's. OT Education/Plan Problem List/Assessment Pt s/p left BKA with decreased mobility, ADL functioning, and strength. Pt to benefit from skilled OT intervention for ADL training, transfers, strengthening , and home safety education to maximize level of function and allow safe discharge. Discharge Recommendations Plan/Recommendations: Continue POC Treatment Plan/Plan of Care Patient would benefit from OT for education, treatment and training to promote independence in ADL's, mobility, safety and/or upper extremity function for ADL' s. Plan of Care: ADL Retraining, Functional Mobility, Group Exercise/Act as Ind, UE Funct Exercise/Act Treatment Duration: February 27, 2017 Visits Per Week: 10-12 Minutes/Day (M-F): 60-90 Minutes/Day (Sat/Maier): PRN Agreement: Yes Rehab Potential: Good Time/GCodes Start Time: 08:35 Stop Time: 10:05 Total Time Billed (hr/min): 90 Billed Treatment Time visit, 65 minutes ADL, 25 minutes exercise JON JACKSON OT February 09, 2017 12:14
[2017-02-09 18:00] VITALS: BP 122/68
[2017-02-09] MEDS: GABAPENTIN 300 MG (NEURONTIN) CAP PO SCH (20:37)
[2017-02-09] MEDS: inSUlin DETERMIR 1 UNIT/0.01 ML (LEVEMIR) CHARGE PER UNIT SQ SCH (20:37)
[2017-02-09] MEDS: FINASTERIDE (PROSCAR) 5 MG TAB PO SCH (20:38)
[2017-02-10 05:00] VITALS: BP 113/69
[2017-02-10] MEDS: IBUPROFEN 800 MG (MOTRIN) TAB PO SCH ×3 (06:34→21:40)
[2017-02-10] MEDS: inSUlin (REGULAR) HUMAN 1 UNIT/0.01 ML (CHARGE PER UNIT) SC SCH ×4 (06:34→21:39)
[2017-02-10] MEDS: metFORMIN 500 MG (GLUCOPHAGE) TAB PO SCH ×2 (06:34→16:58)
[2017-02-10] MEDS: PRASUGREL 10 MG (EFFIENT) TABLET PO SCH (08:33)
[2017-02-10] MEDS: GABAPENTIN 300 MG (NEURONTIN) CAP PO SCH ×2 (08:33→20:53)
[2017-02-10] MEDS: lisINopril 20 MG (ZESTRIL) TAB PO SCH (08:33)
[2017-02-10] MEDS: ASPIRIN E.C. 325 MG (ECOTRIN) TABLET PO SCH (08:33)
[2017-02-10] MEDS: AMITRIPTYLINE 25 MG (ELAVIL) TAB PO SCH ×2 (08:33→20:53)
[2017-02-10] MEDS: DIGOXIN 0.25 MG (LANOXIN) TAB PO SCH (08:33)
[2017-02-10] MEDS: CARVEDILOL 12.5 MG (COREG) TABLET PO SCH ×2 (08:33→20:54)
[2017-02-10] MEDS: HYDROcodone/APAP 10 MG/325 MG (LORTAB) TAB PO PRN ×3 (08:35→20:54)
[2017-02-10 08:37] VITALS: BP 131/68
[2017-02-10 18:29] VITALS: BP 107/60
[2017-02-10] MEDS: FINASTERIDE (PROSCAR) 5 MG TAB PO SCH (20:53)
[2017-02-10] MEDS: inSUlin DETERMIR 1 UNIT/0.01 ML (LEVEMIR) CHARGE PER UNIT SQ SCH (21:40)
[2017-02-11 05:16] VITALS: BP 151/69
[2017-02-11] MEDS: inSUlin (REGULAR) HUMAN 1 UNIT/0.01 ML (CHARGE PER UNIT) SC SCH ×4 (05:18→21:06)
[2017-02-11] MEDS: IBUPROFEN 800 MG (MOTRIN) TAB PO SCH ×3 (05:50→21:06)
[2017-02-11] MEDS: HYDROcodone/APAP 10 MG/325 MG (LORTAB) TAB PO PRN ×3 (05:51→20:41)
[2017-02-11] MEDS: metFORMIN 500 MG (GLUCOPHAGE) TAB PO SCH ×2 (05:51→17:37)
[2017-02-11] MEDS: CARVEDILOL 12.5 MG (COREG) TABLET PO SCH ×2 (08:24→20:41)
[2017-02-11] MEDS: PRASUGREL 10 MG (EFFIENT) TABLET PO SCH (08:24)
[2017-02-11] MEDS: ASPIRIN E.C. 325 MG (ECOTRIN) TABLET PO SCH (08:24)
[2017-02-11] MEDS: AMITRIPTYLINE 25 MG (ELAVIL) TAB PO SCH ×2 (08:24→20:41)
[2017-02-11] MEDS: lisINopril 20 MG (ZESTRIL) TAB PO SCH (08:24)
[2017-02-11] MEDS: DIGOXIN 0.25 MG (LANOXIN) TAB PO SCH (08:25)
[2017-02-11] MEDS: GABAPENTIN 300 MG (NEURONTIN) CAP PO SCH ×2 (08:25→20:41)
--- NOTE | 2017-02-11 08:52 | Progress Note (SOAP) ---
Subjective Subjective/Events-last exam left BKA. Diabetes. patient voices no complaints. Patient improving Objective Exam Vital Signs Date Time Temp Pulse Resp B/P (MAP) Pulse Ox O2 Delivery O2 Flow Rate FiO2 02/11/17 05:16 97.8 92 16 151/69 97 Room Air 02/10/17 18:29 99.2 91 20 107/60 97 Room Air I & O 02/11/17 07:00 Intake Total 2220 ml Output Total 1300 ml Balance 920 ml Capillary Refill : General Appearance: No Apparent Distress, WD/WN, Thin HEENT: Normal ENT Inspection Neck: Full Range of Motion, Normal Inspection Respiratory: Chest Non Tender, Lungs Clear, Normal Breath Sounds, No Accessory Muscle Use, No Respiratory Distress Cardiovascular: Regular Rate, Rhythm, No Murmur Gastrointestinal: non tender, soft Results Lab Laboratory Tests 02/10/17 11:29: Glucometer 144H 02/10/17 16:10: Glucometer 123H 02/10/17 21:00: Glucometer 172H 02/11/17 04:33: Glucometer 73 Assessment/Plan Assessment/Plan Assess & Plan/Chief Complaint below the knee amputation. Diabetes. . 02/07/17. BKA. Diabetes. Nonspecific vague complaints. . 02/08/17 below the knee amputation. Diabetes. Patient feeling much better today. Patient did well with physical and occupational therapy yesterday Patient a work in progress. . 02/11/17. Below the knee amputation. Diabetes Patient working hard Clinical Quality Measures DVT/VTE Risk/Contraindication: Risk Factor Score Per Nursin RFS Level Per Nursing on Admit: 4+=Very High TERRI TAVAREZ DO February 11, 2017 08:52
--- NOTE | 2017-02-11 10:02 | Physical Therapy Daily Note ---
PT Daily Note-Current Subjective Patient in bed pre tx, agrees to PT, has pain of 2/10 in left leg. Patient states being I in his room has been going well. Appearance Patient in wheelchair in his room, has nurse call, elsia, all needs met. Mental Status Patient Orientation: Normal For Age Transfers Functional [place] Measure 0=Not Assessed/NA 4=Minimal Assistance 1=Total Assistance 5=Supervision or Setup 2=Maximal Assistance 6=Modified [place] 3=Moderate Assistance 7=Complete IndependenceIRFPAI Quality Coding Scale 6 Independent with activity with or without an assistive device 5 Patient requires set up or clean up by helper. Patient completes activity by themselves 4 Supervision or touching assist (CGA). [place] provide cues , steadying assist 3 The helper provides less than half the effort to complete the activity 2 The helper provides more than half the effort to complete the activity 1 Dependent. The helper does all the effort to complete an activity 7 Patient refused to complete or attempt activity 9 The patient did not perform the activity before the current illness or injury 88 Not attempted due to Medical conditions or safety concerns Transfers (B, C, W/C) (FIM): 6 Scootin Rollin Supine to/from Sit: 6 Sit to/from Stand: 6 Bed to/from Chair: 6 Gait Training Gait (FIM): 1 Distance: 20'x5 Gait Level of Assist: 4 Gait Persons Needed: 1 Gait Assistive Device: FWW CGA Wheelchair Training Does the Pt Use a Wheelchair?: Yes Wheelchair (FIM): 6 Distance: 150'x2 Type of Wheelchair: Manual Exercises NuStep Minutes: 15 NuStep Workload: 5 Treatments bed mobility and transfers, ambulation, wheelchair mobility, functional strengthening Assessment Current Status: Fair Progress improving endurance PT Short Term Goals Short Term Goals Time Frame: February 13, 2017 Transfers (B,C,W/C) (FIM): 5 Gait (FIM): 1 Gait Distance Comment: 30' Gait Level of Assist: 4 Gait Assistive Device: FWW Wheelchair Distance: 175' x 4 PT Mcc Goals Cake Winder Goals PT Cake Winder Goals Time Frame: February 27, 2017 Transfers (B,C,W/C) (FIM): 6 Sit to Lying (QC): 6 Lying-Sitting on Side/Bed(QC): 6 Sit to Stand (QC): 6 Rollin Roll Left to Right (QC): 6 Chair/Hct-fe-Vfrxd Xfer(QC): 4 Car Transfer (QC): 4 Gait (FIM): 2 Distance: 50' Walk 10 feet (QC): 4 Walk 10ft-Uneven Surface(QC): 4 Walk 50ft with 2 Turns (QC): 4 Walk 150 ft (QC): 88 Gait Level of Assist: 5 Gait Assistive Device: FWW Wheelchair (FIM): 6 Distance: 150' Wheel 50 feet with 2 turns (QC: 6 PT Plan Problem List Problem List: Activity Tolerance, Functional Strength, Safety, Balance, Gait, Transfer, Bed Mobility, ROM Treatment/Plan Treatment Plan: Continue Plan of Care Treatment Plan: Bed Mobility, Education, Functional Activity Miranda, Functional Strength, Group Therapy, Gait, Safety, Therapeutic Exercise, Transfers Treatment Duration: February 27, 2017 Visits Per Week: 10-11 Minutes/Day (M-F): 60-90 Minutes/Day (Sat/Maier): 15-30 Safety Risks/Education Patient Education: Gait Training, Transfer Techniques, Correct Positioning, W/ C Management, Safety Issues Teaching Recipient: Patient Teaching Methods: Demonstration, Discussion Response to Teaching: Reinforcement Needed Time/GCodes Time In: 900 Time Out: 1000 Total Billed Treatment Time: 60 Total Billed Treatment 1 visit [facility] 15' EX 15' GT 30' SAW PIÑA PT February 11, 2017 10:02
--- NOTE | 2017-02-11 11:36 | Occupational Ther Daily Note ---
OT Current Status-Daily Note Subjective Pt in bed, agrees to treatment. Pt reports 6/10 left LE pain. Mental Status/Objective Functional [place] Measure 0=Not Assessed/NA 4=Minimal Assistance 1=Total Assistance 5=Supervision or Setup 2=Maximal Assistance 6=Modified [place] 3=Moderate Assistance 7=Complete [place] ADL-Treatment Pt declined shower today, states he will just wear the clothes he has on. Supine to sit with modified independence. Don right shoe independently while seated EOB. Transfer to w/c with supervision. Pt completed grooming tasks seated at sink. Pt washed face and brushed teeth with modified independence. Pt used urinal while seated. Is able to manage clothing without assistance. Assist to empty urinal. Pt washed hands independently seated at sink. Pt moves slowly this am and requires increased time for ADL tasks. Occasional rest breaks taken during ADL activity. Functional [place] Measure 0=Not Assessed/NA 4=Minimal Assistance 1=Total Assistance 5=Supervision or Setup 2=Maximal Assistance 6=Modified [place] 3=Moderate Assistance 7=Complete IndependenceIRFPAI Quality Coding Scale 6 Independent with activity with or without an assistive device 5 Patient requires set up or clean up by helper. Patient completes activity by themselves 4 Supervision or touching assist (CGA). [place] provide cues , steadying assist 3 The helper provides less than half the effort to complete the activity 2 The helper provides more than half the effort to complete the activity 1 Dependent. The helper does all the effort to complete an activity 7 Patient refused to complete or attempt activity 9 The patient did not perform the activity before the current illness or injury 88 Not attempted due to Medical conditions or safety concerns Grooming (FIM): 6 Oral Hygiene (QC): 6 Toileting (FIM): 5 Other Treatment Pt performed w/c mobility to therapy gym with slow pace. Pt does not require any assist for safe w/c mobility. Pt performed bilateral UE exercises to promote increased strength needed for ADL tasks and transfers. Pt performed shoulder flexion, abduction, biceps curls, and triceps extension exercises x15 reps using moderate resistance(red) theraband. Rest breaks between exercises. Pt returned to room, transferred to bed with modified independence. Sit to supine with modified independence. Pt in bed with needs met after session. OT Short Term Goals Short Term Goals Time Frame: February 13, 2017 Bathing(FIM): 5 Lower Body Dressing(FIM): 5 Toileting(FIM): 5 Transfers (B,C,W/C) (FIM): 5 Toilet/Commode Transfer(FIM): 5 Additional Short Term Goals: 1-Demonstrate ADL Tasks, 2-Verbalize Understanding , 3-ImproveStrength/Miranda 1=Demonstrate adherence to instructed precautions during ADL tasks. 2=Patient will verbalize/demonstrate understanding of assistive devices/ modifications for ADL. 3=Patient will improve strength/tolerance for activity to enable patient to perform ADL's. OT Wash Helper Goals Residential Goals Time Frame: February 27, 2017 Eating (FIM): 6 Eating (QC): 6 Groomin Oral Hygiene (QC): 6 Bathing(FIM): 5 Shower/Bathe Self (QC): 5 Upper Body Dressing(FIM): 6 Upper Body Dressing (QC): 6 Lower Body Dressing(FIM): 6 Lower Body Dressing (QC): 6 On/Off Footwear (QC): 6 Toileting(FIM): 6 Toileting Hygiene (QC): 6 Toilet/Commode Transfer(FIM): 6 Toilet/Commode Transfer (QC): 6 Shower Transfer(FIM): 5 Additional Goals: 1-Demonstrate ADL Tasks, 2-Verbalize Understanding, 3- ImproveStrength/Miranda 1=Demonstrate adherence to instructed precautions during ADL tasks. 2=Patient will verbalize/demonstrate understanding of assistive devices/ modifications for ADL. 3=Patient will improve strength/tolerance for activity to enable patient to perform ADL's. OT Education/Plan Problem List/Assessment Pt s/p left BKA with decreased mobility, ADL functioning, and strength. Pt to benefit from skilled OT intervention for ADL training, transfers, strengthening , and home safety education to maximize level of function and allow safe discharge. Discharge Recommendations Plan/Recommendations: Continue POC Treatment Plan/Plan of Care Patient would benefit from OT for education, treatment and training to promote independence in ADL's, mobility, safety and/or upper extremity function for ADL' s. Plan of Care: ADL Retraining, Functional Mobility, Group Exercise/Act as Ind, UE Funct Exercise/Act Treatment Duration: February 27, 2017 Visits Per Week: 10-12 Minutes/Day (M-F): 60-90 Minutes/Day (Sat/Maier): PRN Agreement: Yes Rehab Potential: Good Time/GCodes Start Time: 08:00 Stop Time: 09:00 Total Time Billed (hr/min): 60 Billed Treatment Time 1 visit, ADLx2(30miutes), FA(10minutes), EX(20minutes) DARIO RUCKER OT February 11, 2017 11:36
--- NOTE | 2017-02-11 11:52 | Occupational Ther Daily Note ---
OT Current Status-Daily Note Subjective Pt in bed, agrees to therapy. Mental Status/Objective Functional [place] Measure 0=Not Assessed/NA 4=Minimal Assistance 1=Total Assistance 5=Supervision or Setup 2=Maximal Assistance 6=Modified [place] 3=Moderate Assistance 7=Complete [place] ADL-Treatment Functional [place] Measure 0=Not Assessed/NA 4=Minimal Assistance 1=Total Assistance 5=Supervision or Setup 2=Maximal Assistance 6=Modified [place] 3=Moderate Assistance 7=Complete IndependenceIRFPAI Quality Coding Scale 6 Independent with activity with or without an assistive device 5 Patient requires set up or clean up by helper. Patient completes activity by themselves 4 Supervision or touching assist (CGA). [place] provide cues , steadying assist 3 The helper provides less than half the effort to complete the activity 2 The helper provides more than half the effort to complete the activity 1 Dependent. The helper does all the effort to complete an activity 7 Patient refused to complete or attempt activity 9 The patient did not perform the activity before the current illness or injury 88 Not attempted due to Medical conditions or safety concerns Other Treatment Supine to sit with modified independence. Pt transferred to w/c with modified independence. Pt performed w/c mobility to therapy gym without assistance. Arm bike x15 minutes to improve overall strength and activity tolerance needed for functional tasks. Pt completed activity with moderate resistance and slow pace. No rest breaks needed. Pt completed fine motor activity with nuts and bolts with 2# wrist weights in place to increase strength and fine motor coordination. Pt completed task with slow pace. Pt returned to room and completed transfer to bed with modified independence. Pt in bed with needs met after session. OT Short Term Goals Short Term Goals Time Frame: February 13, 2017 Bathing(FIM): 5 Lower Body Dressing(FIM): 5 Toileting(FIM): 5 Transfers (B,C,W/C) (FIM): 5 Toilet/Commode Transfer(FIM): 5 Additional Short Term Goals: 1-Demonstrate ADL Tasks, 2-Verbalize Understanding , 3-ImproveStrength/Miranda 1=Demonstrate adherence to instructed precautions during ADL tasks. 2=Patient will verbalize/demonstrate understanding of assistive devices/ modifications for ADL. 3=Patient will improve strength/tolerance for activity to enable patient to perform ADL's. OT Roofing Technician Goals Long-Term Goals Time Frame: February 27, 2017 Eating (FIM): 6 Eating (QC): 6 Groomin Oral Hygiene (QC): 6 Bathing(FIM): 5 Shower/Bathe Self (QC): 5 Upper Body Dressing(FIM): 6 Upper Body Dressing (QC): 6 Lower Body Dressing(FIM): 6 Lower Body Dressing (QC): 6 On/Off Footwear (QC): 6 Toileting(FIM): 6 Toileting Hygiene (QC): 6 Toilet/Commode Transfer(FIM): 6 Toilet/Commode Transfer (QC): 6 Shower Transfer(FIM): 5 Additional Goals: 1-Demonstrate ADL Tasks, 2-Verbalize Understanding, 3- ImproveStrength/Miranda 1=Demonstrate adherence to instructed precautions during ADL tasks. 2=Patient will verbalize/demonstrate understanding of assistive devices/ modifications for ADL. 3=Patient will improve strength/tolerance for activity to enable patient to perform ADL's. OT Education/Plan Problem List/Assessment Pt s/p left BKA with decreased mobility, ADL functioning, and strength. Pt to benefit from skilled OT intervention for ADL training, transfers, strengthening , and home safety education to maximize level of function and allow safe discharge. Discharge Recommendations Plan/Recommendations: Continue POC Treatment Plan/Plan of Care Patient would benefit from OT for education, treatment and training to promote independence in ADL's, mobility, safety and/or upper extremity function for ADL' s. Plan of Care: ADL Retraining, Functional Mobility, Group Exercise/Act as Ind, UE Funct Exercise/Act Treatment Duration: February 27, 2017 Visits Per Week: 10-12 Minutes/Day (M-F): 60-90 Minutes/Day (Sat/Maier): PRN Agreement: Yes Rehab Potential: Good Time/GCodes Start Time: 10:00 Stop Time: 10:30 Total Time Billed (hr/min): 30 Billed Treatment Time 1 visit, EXx2(30minutes) DARIO RUCKER OT February 11, 2017 11:52
--- NOTE | 2017-02-11 11:56 | Physician Query ---
PQ-Further Specificity Admission/Discharge Admission Date: February 05, 2017 at 16:25 Discharge Date: The medical record reflects the following clinical scenario: History/Risk Factors: Diabetes mellitus Clinical Findings: Lt foot infection Treatment: Lt BKA Question: Can you further specify Lt foot infection per the clinical indicators above? Please document below. 1. Cellulitis lt foot 2. Lt foot infection not further specified 3. Other, with explanation of the clinical findings. 4. Clinically undetermined, no explanation for the clinical findings. PHYSICIAN RESPONSE Can you specify per above: 2 Please remember a lack of response to the above will prompt a phone page by CDI/ coding staff. In responding to this query, please exercise your independent professional judgment. The purpose of this communication is to more accurately reflect the complexity of your patients condition. The fact that a question is asked does not imply that any particular answer is desired or expected. Thank you for your timely response to this clarification. Requestors name: Lamar THIS PHYSICIAN QUERY FORM IS A PERMANENT PART OF THE MEDICAL RECORD LAMAR BUTCHER February 11, 2017 11:56 TERRI TAVAREZ DO February 12, 2017 07:15
--- NOTE | 2017-02-11 12:36 | Wound Care Progress Note ---
Subjective Subjective Subjective/Events-last exam The patient is a 71-year-old male, status post left above-knee amputation, with healing surgical wound. The danyell were removed 2 days ago, and there is slight bloody drainage from the medial aspect of the wound. The wound margins are viable and the edges are approximated with Steri-Strips the patient has no significant incisional pain, when left alone. Past Medical History:, Diabetes mellitus, peripheral arterial disease. Review of Systems Pulmonary: No Dyspnea Cardiovascular: No: Chest Pain Objective Exam Last Set of Vital Signs Vital Signs Date Time Temp Pulse Resp B/P (MAP) Pulse Ox O2 Delivery O2 Flow Rate FiO2 02/11/17 05:16 97.8 92 16 151/69 97 Room Air Capillary Refill : I&O Intake and Output 02/11/17 00:00 Intake Total 1740 ml Output Total 500 ml Balance 1240 ml Intake Oral 1740 ml Output Urine Total 500 ml # Voids 3 General: Alert, No Acute Distress Lungs: Normal Air Movement Skin: Other (Left below-knee amputation site is healed.) Results Lab Laboratory Tests 02/10/17 16:10: Glucometer 123H 02/10/17 21:00: Glucometer 172H 02/11/17 04:33: Glucometer 73 02/11/17 10:51: Glucometer 108 Assessment/Plan Assessment/Plan Assessment/Plan 1. 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 2. Diabetes mellitus with poor control in the past. Plan: The wound is healed, with minimal bloody drainage. Will order dry gauze dressings on a daily basis until resolved. Will see again as needed. JEANNETTE SANCHEZ MD February 11, 2017 12:35
--- NOTE | 2017-02-11 14:33 | Physical Therapy Daily Note ---
PT Daily Note-Current Subjective Pt agreeable, but notes his stump is sore after Dr. Cabral looked at it. Pain Numeric Pain Scale: 6 Location: Left Pain Description: Ache, Dull Comment: stump Mental Status Patient Orientation: Person, Place, Time, Situation Transfers Functional [place] Measure 0=Not Assessed/NA 4=Minimal Assistance 1=Total Assistance 5=Supervision or Setup 2=Maximal Assistance 6=Modified [place] 3=Moderate Assistance 7=Complete IndependenceIRFPAI Quality Coding Scale 6 Independent with activity with or without an assistive device 5 Patient requires set up or clean up by helper. Patient completes activity by themselves 4 Supervision or touching assist (CGA). [place] provide cues , steadying assist 3 The helper provides less than half the effort to complete the activity 2 The helper provides more than half the effort to complete the activity 1 Dependent. The helper does all the effort to complete an activity 7 Patient refused to complete or attempt activity 9 The patient did not perform the activity before the current illness or injury 88 Not attempted due to Medical conditions or safety concerns Treatments SPT bed to/from wheelchair without AD with CGA, reaching across the surface for support. Pt is indep with bed mobility and sup to from sit transfers. Pt propelled himself in the wheelchair using right LE and B UE greater than 500 ft in/outdoor surfaces. Worked on turns, safety and varied terrain with wheelchair mobility. Assessment Current Status: Good Progress Transfers and functional activity tolerance continue to progress. PT Short Term Goals Short Term Goals Time Frame: February 13, 2017 Transfers (B,C,W/C) (FIM): 5 Gait (FIM): 1 Gait Distance Comment: 30' Gait Level of Assist: 4 Gait Assistive Device: FWW Wheelchair Distance: 150'x2 PT Hazardous Materials Waste Technician Goals Hazardous Materials Waste Technician Goals PT Hazardous Materials Waste Technician Goals Time Frame: February 27, 2017 Transfers (B,C,W/C) (FIM): 6 Sit to Lying (QC): 6 Lying-Sitting on Side/Bed(QC): 6 Sit to Stand (QC): 6 Rollin Roll Left to Right (QC): 6 Chair/Quy-ge-Rdotu Xfer(QC): 4 Car Transfer (QC): 4 Gait (FIM): 2 Distance: 50' Walk 10 feet (QC): 4 Walk 10ft-Uneven Surface(QC): 4 Walk 50ft with 2 Turns (QC): 4 Walk 150 ft (QC): 88 Gait Level of Assist: 5 Gait Assistive Device: FWW Wheelchair (FIM): 6 Distance: 150' Wheel 50 feet with 2 turns (QC: 6 PT Plan Problem List Problem List: Activity Tolerance, Functional Strength Treatment/Plan Treatment Plan: Continue Plan of Care Treatment Plan: Bed Mobility, Education, Functional Activity Miranda, Functional Strength, Group Therapy, Gait, Safety, Therapeutic Exercise, Transfers Treatment Duration: February 27, 2017 Visits Per Week: 10-11 Minutes/Day (M-F): 60-90 Minutes/Day (Sat/Maier): 15-30 Safety Risks/Education Patient Education: Transfer Techniques, Safety Issues Teaching Recipient: Patient Teaching Methods: Demonstration, Discussion Response to Teaching: Reinforcement Needed Time/GCodes Time In: 1340 Time Out: 1410 Total Billed Treatment Time: 30 Total Billed Treatment visit FA 10 WC 20 DARA GANDARA PT February 11, 2017 14:33
[2017-02-11 18:00] VITALS: BP 108/53
[2017-02-11] MEDS: FINASTERIDE (PROSCAR) 5 MG TAB PO SCH (20:41)
[2017-02-11] MEDS: inSUlin DETERMIR 1 UNIT/0.01 ML (LEVEMIR) CHARGE PER UNIT SQ SCH (21:06)
[2017-02-12] MEDS: inSUlin (REGULAR) HUMAN 1 UNIT/0.01 ML (CHARGE PER UNIT) SC SCH ×5 (05:11→21:33)
[2017-02-12 05:16] VITALS: BP 92/55
[2017-02-12] MEDS: IBUPROFEN 800 MG (MOTRIN) TAB PO SCH ×3 (05:28→21:14)
[2017-02-12 06:33] LABS: CALCIUM 10.3 MG/DL (8.5-10.1); CREATININE SERUM 1.99 MG/DL (0.60-1.30); POTASSIUM 5.8 MMOL/L (3.6-5.0)
--- NOTE | 2017-02-12 08:28 | Progress Note (SOAP) ---
Subjective Subjective/Events-last exam Patient states she's not eating much. Food is not tasting good. Patient had a hypoglycemic episode this morning. Potassium 5.8 not taking fluids or eating much GFR increased. To put lisinopril on hold. Left BKA. Diabetes Objective Exam Vital Signs Date Time Temp Pulse Resp B/P (MAP) Pulse Ox O2 Delivery O2 Flow Rate FiO2 02/12/17 05:16 96.6 73 18 92/55 96 Room Air 02/11/17 18:00 98.6 84 18 108/53 98 Room Air I & O 02/12/17 07:00 Intake Total 1950 ml Output Total 600 ml Balance 1350 ml Capillary Refill : General Appearance: No Apparent Distress, Thin HEENT: Normal ENT Inspection Neck: Normal Inspection Respiratory: Chest Non Tender, No Accessory Muscle Use, No Respiratory Distress Cardiovascular: Regular Rate, Rhythm, No Murmur Results Lab Laboratory Tests 02/11/17 10:51: Glucometer 108 02/11/17 15:38: Glucometer 93 02/11/17 17:25: Glucometer 101 02/11/17 20:58: Glucometer 113H 02/12/17 04:54: Glucometer 47*L 02/12/17 05:06: Glucometer 56*L 02/12/17 05:19: Glucometer 46*L 02/12/17 05:33: Glucometer 112H 02/12/17 06:06: Sodium Level 136, Potassium Level 5.8H, Chloride Level 102, Carbon Dioxide Level 24, Anion Gap 10, Blood Urea Nitrogen 59H, Creatinine 1.99H, Estimat Glomerular Filtration Rate 40, BUN/Creatinine Ratio 30, Glucose Level 77, Calcium Level 10.3H 02/12/17 07:38: Glucometer 88 Assessment/Plan Assessment/Plan Assess & Plan/Chief Complaint below the knee amputation. Diabetes. . 02/07/17. BKA. Diabetes. Nonspecific vague complaints. . 02/08/17 below the knee amputation. Diabetes. Patient feeling much better today. Patient did well with physical and occupational therapy yesterday Patient a work in progress. . 02/11/17. Below the knee amputation. Diabetes Patient working hard. . 02/12/17. Low the knee amputation. Diabetes. Patient not eating good or drinking good. Hypoglycemia. Hyperkalemia. GFR increasing. To hold lisinopril. To patient to take more fluids and eat better Clinical Quality Measures DVT/VTE Risk/Contraindication: Risk Factor Score Per Nursin RFS Level Per Nursing on Admit: 4+=Very High TERRI TAVAREZ DO February 12, 2017 08:28
[2017-02-12] MEDS: CARVEDILOL 12.5 MG (COREG) TABLET PO SCH ×2 (08:38→21:13)
[2017-02-12] MEDS: ASPIRIN E.C. 325 MG (ECOTRIN) TABLET PO SCH (08:38)
[2017-02-12] MEDS: PRASUGREL 10 MG (EFFIENT) TABLET PO SCH (08:38)
[2017-02-12] MEDS: metFORMIN 500 MG (GLUCOPHAGE) TAB PO SCH ×2 (08:38→16:34)
[2017-02-12] MEDS: AMITRIPTYLINE 25 MG (ELAVIL) TAB PO SCH ×2 (08:38→21:13)
[2017-02-12] MEDS: GABAPENTIN 300 MG (NEURONTIN) CAP PO SCH ×2 (08:38→21:13)
[2017-02-12] MEDS: DIGOXIN 0.25 MG (LANOXIN) TAB PO SCH (08:38)
[2017-02-12] MEDS: HYDROcodone/APAP 10 MG/325 MG (LORTAB) TAB PO PRN ×2 (08:39→14:54)
[2017-02-12 08:45] VITALS: BP 145/75
--- NOTE | 2017-02-12 09:02 | Physical Therapy Daily Note ---
PT Daily Note-Current Subjective Patient in bed sleeping pre tx, agrees to PT upon waking, has 6/10 pain, nurse aware and he got pain meds. Patient will need to get dressed and he says he needs to go to the bathroom. Patient can get dressed with setup and needs no help with transfers going to the bathroom. Patient's breakfast is here and he has had low blood sugar so he needs to eat it, will try to modify therapy so he can do it and eat breakfast at the same time. Appearance Patient in room post tx to finish his breakfast. Mental Status Patient Orientation: Normal For Age Transfers Functional [place] Measure 0=Not Assessed/NA 4=Minimal Assistance 1=Total Assistance 5=Supervision or Setup 2=Maximal Assistance 6=Modified [place] 3=Moderate Assistance 7=Complete IndependenceIRFPAI Quality Coding Scale 6 Independent with activity with or without an assistive device 5 Patient requires set up or clean up by helper. Patient completes activity by themselves 4 Supervision or touching assist (CGA). [place] provide cues , steadying assist 3 The helper provides less than half the effort to complete the activity 2 The helper provides more than half the effort to complete the activity 1 Dependent. The helper does all the effort to complete an activity 7 Patient refused to complete or attempt activity 9 The patient did not perform the activity before the current illness or injury 88 Not attempted due to Medical conditions or safety concerns Transfers (B, C, W/C) (FIM): 6 Scootin Rollin Supine to/from Sit: 6 Sit to/from Stand: 6 Bed to/from Chair: 6 Wheelchair Training Wheelchair (FIM): 6 Distance: 150'x2 Type of Wheelchair: Manual occasionally takes turns too sharp and can get caught but he is able to correct without assist Exercises Seated Therapy Exercises: Hip flexion, Hip abd/add Seated Reps: 20 LAQ alternating for 5 min NuStep Minutes: 15 NuStep Workload: 4 Treatments bed mobility and transfers, wheelchair mobility, functional strengthening, dressing, toileting Assessment Current Status: Fair Progress patient continues to be independent in his room without any falls PT Short Term Goals Short Term Goals Time Frame: February 13, 2017 Transfers (B,C,W/C) (FIM): 5 Gait (FIM): 1 Gait Distance Comment: 30' Gait Level of Assist: 4 Gait Assistive Device: FWW Wheelchair Distance: 150'x2 PT Equipment Monitor Phototypesetting Goals Equipment Monitor Phototypesetting Goals PT Senior Care Goals Time Frame: February 27, 2017 Transfers (B,C,W/C) (FIM): 6 Sit to Lying (QC): 6 Lying-Sitting on Side/Bed(QC): 6 Sit to Stand (QC): 6 Rollin Roll Left to Right (QC): 6 Chair/Ond-az-Ljlxx Xfer(QC): 4 Car Transfer (QC): 4 Gait (FIM): 2 Distance: 50' Walk 10 feet (QC): 4 Walk 10ft-Uneven Surface(QC): 4 Walk 50ft with 2 Turns (QC): 4 Walk 150 ft (QC): 88 Gait Level of Assist: 5 Gait Assistive Device: FWW Wheelchair (FIM): 6 Distance: 150' Wheel 50 feet with 2 turns (QC: 6 PT Plan Problem List Problem List: Activity Tolerance, Functional Strength, Safety, Balance, Gait, Transfer Treatment/Plan Treatment Plan: Continue Plan of Care Treatment Plan: Bed Mobility, Education, Functional Activity Miranda, Functional Strength, Group Therapy, Gait, Safety, Therapeutic Exercise, Transfers Treatment Duration: February 27, 2017 Visits Per Week: 10-11 Minutes/Day (M-F): 60-90 Minutes/Day (Sat/Maier): 15-30 Safety Risks/Education Patient Education: Transfer Techniques, Correct Positioning, W/C Management, Safety Issues Teaching Recipient: Patient Teaching Methods: Demonstration, Discussion Response to Teaching: Reinforcement Needed Time/GCodes Time In: 800 Time Out: 900 Total Billed Treatment Time: 60 Total Billed Treatment 1 visit [facility] 15' EX 25' FA 20' SAW PIÑA PT February 12, 2017 09:02
--- NOTE | 2017-02-12 12:06 | Occupational Ther Daily Note ---
OT Current Status-Daily Note Subjective Pt sitting EOB eating breakfast. Pt states he is finished eating and is agreeable to therapy. Pt reports 6/10 left LE pain. Mental Status/Objective Functional [place] Measure 0=Not Assessed/NA 4=Minimal Assistance 1=Total Assistance 5=Supervision or Setup 2=Maximal Assistance 6=Modified [place] 3=Moderate Assistance 7=Complete [place] ADL-Treatment Pt requests shower this am. Transfer w/c to EOB with modified independence. To restroom via w/c. Pt transferred to walk in shower with shower bench with CGA for safety using grab bars. Pt doffed shirt without assistance. CGA required for balance while doffing pants. Pt able to wash/dry all areas after set up; uses hand held shower. Pt weight shifts side to side to wash buttocks rather than standing. Increased time for bathing. Don pullover shirt with set up. Pt donned underwear and pants with CGA for balance during standing for pant hike. Pt uses grab bar for balance. Don right sock and shoe with setup. Pt completed grooming tasks with modified independence while seated at sink. Functional [place] Measure 0=Not Assessed/NA 4=Minimal Assistance 1=Total Assistance 5=Supervision or Setup 2=Maximal Assistance 6=Modified [place] 3=Moderate Assistance 7=Complete IndependenceIRFPAI Quality Coding Scale 6 Independent with activity with or without an assistive device 5 Patient requires set up or clean up by helper. Patient completes activity by themselves 4 Supervision or touching assist (CGA). [place] provide cues , steadying assist 3 The helper provides less than half the effort to complete the activity 2 The helper provides more than half the effort to complete the activity 1 Dependent. The helper does all the effort to complete an activity 7 Patient refused to complete or attempt activity 9 The patient did not perform the activity before the current illness or injury 88 Not attempted due to Medical conditions or safety concerns Grooming (FIM): 6 Oral Hygiene (QC): 6 Bathing (FIM): 5 Shower/Bathe Self (QC): 5 Upper Body (FIM): 5 Upper Body Dressing (QC): 5 Lower Body Dressing (FIM): 4 Lower Body Dressing (QC): 4 (CGA) On/Off Footwear (QC): 5 Shower Transfer(FIM): 4 (CGA) Other Treatment Pt performed w/c mobility to therapy gym without assistance. Arm bike x15 minutes to increase strength and activity tolerance needed for ADLs and transfers. Pt completed task with moderate resistance and slow pace. One brief rest break taken during task. Pt returned to room, transferred to EOB with SBA. Pt sitting EOB with needs met and sister present after session. OT Short Term Goals Short Term Goals Time Frame: February 13, 2017 Bathing(FIM): 5 Lower Body Dressing(FIM): 5 Toileting(FIM): 5 Transfers (B,C,W/C) (FIM): 5 Toilet/Commode Transfer(FIM): 5 Additional Short Term Goals: 1-Demonstrate ADL Tasks, 2-Verbalize Understanding , 3-ImproveStrength/Miranda 1=Demonstrate adherence to instructed precautions during ADL tasks. 2=Patient will verbalize/demonstrate understanding of assistive devices/ modifications for ADL. 3=Patient will improve strength/tolerance for activity to enable patient to perform ADL's. OT Lead Game Designer Goals Lead Game Designer Goals Time Frame: February 27, 2017 Eating (FIM): 6 Eating (QC): 6 Groomin Oral Hygiene (QC): 6 Bathing(FIM): 5 Shower/Bathe Self (QC): 5 Upper Body Dressing(FIM): 6 Upper Body Dressing (QC): 6 Lower Body Dressing(FIM): 6 Lower Body Dressing (QC): 6 On/Off Footwear (QC): 6 Toileting(FIM): 6 Toileting Hygiene (QC): 6 Toilet/Commode Transfer(FIM): 6 Toilet/Commode Transfer (QC): 6 Shower Transfer(FIM): 5 Additional Goals: 1-Demonstrate ADL Tasks, 2-Verbalize Understanding, 3- ImproveStrength/Miranda 1=Demonstrate adherence to instructed precautions during ADL tasks. 2=Patient will verbalize/demonstrate understanding of assistive devices/ modifications for ADL. 3=Patient will improve strength/tolerance for activity to enable patient to perform ADL's. OT Education/Plan Problem List/Assessment Pt s/p left BKA with decreased mobility, ADL functioning, and strength. Pt to benefit from skilled OT intervention for ADL training, transfers, strengthening , and home safety education to maximize level of function and allow safe discharge. Discharge Recommendations Plan/Recommendations: Continue POC Treatment Plan/Plan of Care Patient would benefit from OT for education, treatment and training to promote independence in ADL's, mobility, safety and/or upper extremity function for ADL' s. Plan of Care: ADL Retraining, Functional Mobility, Group Exercise/Act as Ind, UE Funct Exercise/Act Treatment Duration: February 27, 2017 Visits Per Week: 10-12 Minutes/Day (M-F): 60-90 Minutes/Day (Sat/Maier): PRN Agreement: Yes Rehab Potential: Good Time/GCodes Start Time: 09:15 Stop Time: 10:30 Total Time Billed (hr/min): 75 Billed Treatment Time 1 visit, ADLx4(55minutes), EX(20minutes) DARIO RUCKER OT February 12, 2017 12:06
--- NOTE | 2017-02-12 13:59 | Occupational Ther Daily Note ---
OT Current Status-Daily Note Subjective Pt sitting EOB, requesting to use restroom. Mental Status/Objective Functional [place] Measure 0=Not Assessed/NA 4=Minimal Assistance 1=Total Assistance 5=Supervision or Setup 2=Maximal Assistance 6=Modified [place] 3=Moderate Assistance 7=Complete [place] ADL-Treatment Pt donned right shoe with set up. Transfer EOB to w/c with modified independence. W/c mobility to restroom without assistance. Pt transferred w/c to toilet with supervision using grab bar. Pt able to manage hygiene with SBA. Stood with supervision for clothing management using grab bar for balance. Pt washed hands independently while seated at sink. Transfer w/c to EOB with modified independence. Pt sitting EOB with needs met after session. Functional [place] Measure 0=Not Assessed/NA 4=Minimal Assistance 1=Total Assistance 5=Supervision or Setup 2=Maximal Assistance 6=Modified [place] 3=Moderate Assistance 7=Complete IndependenceIRFPAI Quality Coding Scale 6 Independent with activity with or without an assistive device 5 Patient requires set up or clean up by helper. Patient completes activity by themselves 4 Supervision or touching assist (CGA). [place] provide cues , steadying assist 3 The helper provides less than half the effort to complete the activity 2 The helper provides more than half the effort to complete the activity 1 Dependent. The helper does all the effort to complete an activity 7 Patient refused to complete or attempt activity 9 The patient did not perform the activity before the current illness or injury 88 Not attempted due to Medical conditions or safety concerns Toileting (FIM): 5 Toileting Hygiene (QC): 4 Toilet/Commode Transfer (FIM): 5 OT Short Term Goals Short Term Goals Time Frame: February 13, 2017 Bathing(FIM): 5 Lower Body Dressing(FIM): 5 Toileting(FIM): 5 Transfers (B,C,W/C) (FIM): 5 Toilet/Commode Transfer(FIM): 5 Additional Short Term Goals: 1-Demonstrate ADL Tasks, 2-Verbalize Understanding , 3-ImproveStrength/Miranda 1=Demonstrate adherence to instructed precautions during ADL tasks. 2=Patient will verbalize/demonstrate understanding of assistive devices/ modifications for ADL. 3=Patient will improve strength/tolerance for activity to enable patient to perform ADL's. OT Shelter Goals Shelter Goals Time Frame: February 27, 2017 Eating (FIM): 6 Eating (QC): 6 Groomin Oral Hygiene (QC): 6 Bathing(FIM): 5 Shower/Bathe Self (QC): 5 Upper Body Dressing(FIM): 6 Upper Body Dressing (QC): 6 Lower Body Dressing(FIM): 6 Lower Body Dressing (QC): 6 On/Off Footwear (QC): 6 Toileting(FIM): 6 Toileting Hygiene (QC): 6 Toilet/Commode Transfer(FIM): 6 Toilet/Commode Transfer (QC): 6 Shower Transfer(FIM): 5 Additional Goals: 1-Demonstrate ADL Tasks, 2-Verbalize Understanding, 3- ImproveStrength/Miranda 1=Demonstrate adherence to instructed precautions during ADL tasks. 2=Patient will verbalize/demonstrate understanding of assistive devices/ modifications for ADL. 3=Patient will improve strength/tolerance for activity to enable patient to perform ADL's. OT Education/Plan Problem List/Assessment Pt s/p left BKA with decreased mobility, ADL functioning, and strength. Pt to benefit from skilled OT intervention for ADL training, transfers, strengthening , and home safety education to maximize level of function and allow safe discharge. Discharge Recommendations Plan/Recommendations: Continue POC Treatment Plan/Plan of Care Patient would benefit from OT for education, treatment and training to promote independence in ADL's, mobility, safety and/or upper extremity function for ADL' s. Plan of Care: ADL Retraining, Functional Mobility, Group Exercise/Act as Ind, UE Funct Exercise/Act Treatment Duration: February 27, 2017 Visits Per Week: 10-12 Minutes/Day (M-F): 60-90 Minutes/Day (Sat/Maier): PRN Agreement: Yes Rehab Potential: Good Time/GCodes Start Time: 13:05 Stop Time: 13:25 Total Time Billed (hr/min): 20 Billed Treatment Time 1 visit, ADL(20minutes) DARIO RUCKER OT February 12, 2017 13:59
--- NOTE | 2017-02-12 14:35 | Physical Therapy Daily Note ---
PT Daily Note-Current Subjective Patient in bed pre tx, agrees to PT, has pain of 6/10, nurse aware of pain. Appearance Patient in wheelchair in his room. He is mod I with transfers. Mental Status Patient Orientation: Normal For Age Transfers Functional [place] Measure 0=Not Assessed/NA 4=Minimal Assistance 1=Total Assistance 5=Supervision or Setup 2=Maximal Assistance 6=Modified [place] 3=Moderate Assistance 7=Complete IndependenceIRFPAI Quality Coding Scale 6 Independent with activity with or without an assistive device 5 Patient requires set up or clean up by helper. Patient completes activity by themselves 4 Supervision or touching assist (CGA). [place] provide cues , steadying assist 3 The helper provides less than half the effort to complete the activity 2 The helper provides more than half the effort to complete the activity 1 Dependent. The helper does all the effort to complete an activity 7 Patient refused to complete or attempt activity 9 The patient did not perform the activity before the current illness or injury 88 Not attempted due to Medical conditions or safety concerns Transfers (B, C, W/C) (FIM): 6 Scootin Rollin Supine to/from Sit: 6 Sit to/from Stand: 6 Bed to/from Chair: 6 Wheelchair Training Wheelchair (FIM): 6 Distance: 150'x2 Type of Wheelchair: Manual Exercises Supine Ex: Quad Set, Glut sets, Straight leg raise, Hip abd/add Supine Reps: 20 Seated Therapy Exercises: Long arc quads Seated Reps: 20 prone hip flexor stretch 5 min, sidelying left hip abd x20 Treatments bed mobility and transfers, wheelchair mobility, functional strengthening Assessment Current Status: Fair Progress patient doing well with transfers, no falls PT Short Term Goals Short Term Goals Time Frame: February 13, 2017 Transfers (B,C,W/C) (FIM): 5 Gait (FIM): 1 Gait Distance Comment: 30' Gait Level of Assist: 4 Gait Assistive Device: FWW Wheelchair Distance: 150'x2 PT Mcc Goals Yard Loader Operator Goals PT Mcc Goals Time Frame: February 27, 2017 Transfers (B,C,W/C) (FIM): 6 Sit to Lying (QC): 6 Lying-Sitting on Side/Bed(QC): 6 Sit to Stand (QC): 6 Rollin Roll Left to Right (QC): 6 Chair/Sji-xp-Ogume Xfer(QC): 4 Car Transfer (QC): 4 Gait (FIM): 2 Distance: 50' Walk 10 feet (QC): 4 Walk 10ft-Uneven Surface(QC): 4 Walk 50ft with 2 Turns (QC): 4 Walk 150 ft (QC): 88 Gait Level of Assist: 5 Gait Assistive Device: FWW Wheelchair (FIM): 6 Distance: 150' Wheel 50 feet with 2 turns (QC: 6 PT Plan Problem List Problem List: Activity Tolerance, Functional Strength, Safety, Balance, Gait, Transfer, ROM Treatment/Plan Treatment Plan: Continue Plan of Care Treatment Plan: Bed Mobility, Education, Functional Activity Miranda, Functional Strength, Group Therapy, Gait, Safety, Therapeutic Exercise, Transfers Treatment Duration: February 27, 2017 Visits Per Week: 10-11 Minutes/Day (M-F): 60-90 Minutes/Day (Sat/Maier): 15-30 Safety Risks/Education Patient Education: Transfer Techniques, Correct Positioning, W/C Management, Safety Issues Teaching Recipient: Patient Teaching Methods: Demonstration, Discussion Response to Teaching: Reinforcement Needed Time/GCodes Time In: 1400 Time Out: 1430 Total Billed Treatment Time: 30 Total Billed Treatment 1 visit [facility] 10' EX 20' SAW PIÑA PT February 12, 2017 14:34
[2017-02-12 19:11] VITALS: BP 113/66
[2017-02-12] MEDS ORDERED: inSUlin DETERMIR 1 UNIT/0.01 ML (LEVEMIR) CHARGE PER UNIT SQ SCH (21:00)
[2017-02-12] MEDS: FINASTERIDE (PROSCAR) 5 MG TAB PO SCH (21:13)
[2017-02-13 05:14] VITALS: BP 127/79
[2017-02-13 06:23] LABS: MEAN PLATELET VOLUME 9.9 FL (7.4-10.4); RED BLOOD COUNT 3.11 10^6/uL (4.35-5.85); RED CELL DISTRIBUTION WIDTH 15.6 % (10.0-14.5)
[2017-02-13] MEDS: metFORMIN 500 MG (GLUCOPHAGE) TAB PO SCH ×2 (06:38→17:06)
[2017-02-13] MEDS: IBUPROFEN 800 MG (MOTRIN) TAB PO SCH ×3 (06:39→20:39)
[2017-02-13] MEDS: inSUlin (REGULAR) HUMAN 1 UNIT/0.01 ML (CHARGE PER UNIT) SC SCH ×4 (06:39→21:27)
[2017-02-13 07:01] LABS: CALCIUM 9.9 MG/DL (8.5-10.1); CREATININE SERUM 1.56 MG/DL (0.60-1.30); POTASSIUM 6.1 MMOL/L (3.6-5.0)
[2017-02-13] MEDS ORDERED: SOD POLYSTERENE 15 GM/60 ML (KAYEXALATE) UNIT DOSE PO NR (08:00)
--- NOTE | 2017-02-13 08:05 | Progress Note (SOAP) ---
Subjective Subjective/Events-last exam left BKA. Diabetes. Renal insufficiency. Patient having pain in the left leg. Increase Neurontin 3 times a day. Potassium 6.1 to give Kayexalate Objective Exam Vital Signs Date Time Temp Pulse Resp B/P (MAP) Pulse Ox O2 Delivery O2 Flow Rate FiO2 02/13/17 05:14 98.4 84 16 127/79 98 Room Air 02/12/17 19:11 98.0 92 16 113/66 100 02/12/17 08:45 97 145/75 I & O 02/13/17 07:00 Intake Total 1980 ml Output Total 1550 ml Balance 430 ml Capillary Refill : General Appearance: No Apparent Distress, Thin HEENT: Normal ENT Inspection Neck: Full Range of Motion, Normal Inspection Respiratory: Chest Non Tender, Lungs Clear, No Accessory Muscle Use, No Respiratory Distress Cardiovascular: Regular Rate, Rhythm, No Murmur Gastrointestinal: non tender, soft Results Lab Laboratory Tests 02/13/17 05:25 Laboratory Tests 02/12/17 10:59: Glucometer 168H 02/12/17 15:54: Glucometer 174H 02/12/17 20:21: Glucometer 202H 02/13/17 04:44: Glucometer 137H 02/13/17 05:25: White Blood Count 6.0, Red Blood Count 3.11L, Hemoglobin 7.9L, Hematocrit 26L, Mean Corpuscular Volume 82, Mean Corpuscular Hemoglobin 25, Mean Corpuscular Hemoglobin Concent 31L, Red Cell Distribution Width 15.6H, Platelet Count 532H, Mean Platelet Volume 9.9, Sodium Level 135, Potassium Level 6.1H, Chloride Level 103, Carbon Dioxide Level 24, Anion Gap 8, Blood Urea Nitrogen 60H, Creatinine 1.56H, Estimat Glomerular Filtration Rate 54, BUN/Creatinine Ratio 38 , Glucose Level 122H, Calcium Level 9.9 Assessment/Plan Assessment/Plan Assess & Plan/Chief Complaint below the knee amputation. Diabetes. . 02/07/17. BKA. Diabetes. Nonspecific vague complaints. . 02/08/17 below the knee amputation. Diabetes. Patient feeling much better today. Patient did well with physical and occupational therapy yesterday Patient a work in progress. . 02/11/17. Below the knee amputation. Diabetes Patient working hard. . 02/12/17. Low the knee amputation. Diabetes. Patient not eating good or drinking good. Hypoglycemia. Hyperkalemia. GFR increasing. To hold lisinopril. To patient to take more fluids and eat better. . BKA. 02/13/17. Diabetes. Renal insufficiency better. Hyperkalemia potassium 6.1 to receive Kayexalate Clinical Quality Measures DVT/VTE Risk/Contraindication: Risk Factor Score Per Nursin RFS Level Per Nursing on Admit: 4+=Very High TERRI TAVAREZ DO February 13, 2017 08:05
--- NOTE | 2017-02-13 08:53 | Physical Therapy Daily Note ---
PT Daily Note-Current Subjective Pt. in bed with LLE elevated and states he has been trying to exercise it himself and is at 7/10 pain right now. Agrees to rx and states after that his pain has decreased to 6/10. Pt. states he would do anything to get home soon. 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 Also states that his activity level at home previous to this was very low. Pain Numeric Pain Scale: 6 Location: Left Location Body Site: Thigh Pain Description: Pressure Mental Status Patient Orientation: Normal For Age Attachments: Other-See Comments (splint /limb protector , pt. idep to glo and doff) Transfers Functional [place] Measure 0=Not Assessed/NA 4=Minimal Assistance 1=Total Assistance 5=Supervision or Setup 2=Maximal Assistance 6=Modified [place] 3=Moderate Assistance 7=Complete IndependenceIRFPAI Quality Coding Scale 6 Independent with activity with or without an assistive device 5 Patient requires set up or clean up by helper. Patient completes activity by themselves 4 Supervision or touching assist (CGA). [place] provide cues , steadying assist 3 The helper provides less than half the effort to complete the activity 2 The helper provides more than half the effort to complete the activity 1 Dependent. The helper does all the effort to complete an activity 7 Patient refused to complete or attempt activity 9 The patient did not perform the activity before the current illness or injury 88 Not attempted due to Medical conditions or safety concerns Transfers (B, C, W/C) (FIM): 6 Scootin Rollin Supine to/from Sit: 6 Sit to/from Stand: 6 (does better with level raised) Bed to/from Chair: 6 Gait Training Does the Patient Walk?: Yes Gait (FIM): 2 Distance (FIM): 9=078-28 ft (55x2) Gait Level of Assist: 4 Gait Persons Needed: 1 Gait Assistive Device: FWW pt. fatigues very quickly, c/o this has been the case for him for quite some time. Describes how walking felt leaving this ARMATURE WINDER to wonder if he has claudication or vascular or cardiac issues etc Wheelchair Training Does the Pt Use a Wheelchair?: Yes Wheelchair (FIM): 4 Wheelchair Distance: 3=150 ft Wheelchair Level of Assist: 4 Type of Wheelchair: Manual fatigues with w/c as well Exercises Supine Ex: Bridging, Ankle pumps, Quad Set, Rolling, Glut sets, Heel Slides, Short Arc Quads, Scooting, Straight leg raise, Hip abd/add Supine Reps: 15 (sup, side and prone, hip extension etc) Seated Therapy Exercises: Sit to stand, Long arc quads, Hip flexion Seated Reps: 10 Assessment Current Status: Good Progress fatigues quickly, goes in to hip flexion and kyphosis after only a few steps of walking PT Short Term Goals Short Term Goals Time Frame: February 13, 2017 Transfers (B,C,W/C) (FIM): 5 Gait (FIM): 1 Gait Distance Comment: 30' Gait Level of Assist: 4 Gait Assistive Device: FWW Wheelchair Distance: 150'x2 PT Intermediate Goals Registered Health Nurse Goals PT Intermediate Goals Time Frame: February 27, 2017 Transfers (B,C,W/C) (FIM): 6 Sit to Lying (QC): 6 Lying-Sitting on Side/Bed(QC): 6 Sit to Stand (QC): 6 Rollin Roll Left to Right (QC): 6 Chair/Vel-xy-Cpteh Xfer(QC): 4 Car Transfer (QC): 4 Gait (FIM): 2 Distance: 50' Walk 10 feet (QC): 4 Walk 10ft-Uneven Surface(QC): 4 Walk 50ft with 2 Turns (QC): 4 Walk 150 ft (QC): 88 Gait Level of Assist: 5 Gait Assistive Device: FWW Wheelchair (FIM): 6 Distance: 150' Wheel 50 feet with 2 turns (QC: 6 PT Plan Treatment/Plan Treatment Plan: Continue Plan of Care Treatment Plan: Bed Mobility, Education, Functional Activity Miranda, Functional Strength, Group Therapy, Gait, Safety, Therapeutic Exercise, Transfers Treatment Duration: February 27, 2017 Visits Per Week: 10-11 Minutes/Day (M-F): 60-90 Minutes/Day (Sat/Maier): 15-30 Safety Risks/Education Patient Education: Gait Training, Transfer Techniques, Correct Positioning, W/ C Management, Disease Process, Safety Issues Teaching Recipient: Patient Teaching Methods: Demonstration, Discussion Response to Teaching: Verbalize Understanding, Return Demonstration, Reinforcement Needed Time/GCodes Time In: 800 Time Out: 900 Total Billed Treatment Time: 60 Total Billed Treatment 1,GT15,WCH15,EX30 G Codes Necessary: DIONNE Martínez ARMATURE WINDER February 13, 2017 08:52
[2017-02-13] MEDS: CARVEDILOL 12.5 MG (COREG) TABLET PO SCH ×2 (09:01→20:39)
[2017-02-13] MEDS: AMITRIPTYLINE 25 MG (ELAVIL) TAB PO SCH ×2 (09:01→20:39)
[2017-02-13] MEDS: DIGOXIN 0.25 MG (LANOXIN) TAB PO SCH (09:01)
[2017-02-13] MEDS: PRASUGREL 10 MG (EFFIENT) TABLET PO SCH (09:01)
[2017-02-13] MEDS: GABAPENTIN 300 MG (NEURONTIN) CAP PO SCH ×3 (09:01→20:38)
[2017-02-13] MEDS: ASPIRIN E.C. 325 MG (ECOTRIN) TABLET PO SCH (09:01)
[2017-02-13] MEDS: HYDROcodone/APAP 10 MG/325 MG (LORTAB) TAB PO PRN ×3 (09:05→22:03)
--- NOTE | 2017-02-13 12:59 | Occupational Ther Daily Note ---
OT Current Status-Daily Note Subjective Pt sitting in w/c, agrees to treatment. Pt reports 7/10 pain in left LE, RN present and provided pain medication. Mental Status/Objective Functional [place] Measure 0=Not Assessed/NA 4=Minimal Assistance 1=Total Assistance 5=Supervision or Setup 2=Maximal Assistance 6=Modified [place] 3=Moderate Assistance 7=Complete [place] ADL-Treatment Functional [place] Measure 0=Not Assessed/NA 4=Minimal Assistance 1=Total Assistance 5=Supervision or Setup 2=Maximal Assistance 6=Modified [place] 3=Moderate Assistance 7=Complete IndependenceIRFPAI Quality Coding Scale 6 Independent with activity with or without an assistive device 5 Patient requires set up or clean up by helper. Patient completes activity by themselves 4 Supervision or touching assist (CGA). [place] provide cues , steadying assist 3 The helper provides less than half the effort to complete the activity 2 The helper provides more than half the effort to complete the activity 1 Dependent. The helper does all the effort to complete an activity 7 Patient refused to complete or attempt activity 9 The patient did not perform the activity before the current illness or injury 88 Not attempted due to Medical conditions or safety concerns Other Treatment Pt declined shower this morning and is already dressed. Declined ADL activity at this time. Pt performed w/c mobility to therapy gym without assistance. Pt completed bilateral UE exercises to promote increased strength needed for ADLs and transfers. Pt performed shoulder flexion, forward press, biceps curls, and wrist flex/ext exercises x20 reps with 2# dowel dina. Rest breaks between exercises. W/c pushups x10 reps to increase strength needed for sit to stand and transfers. Arm bike x15 minutes to increase overall strength and activity tolerance. Pt completed task with moderate resistance and slow pace. No rest breaks needed. Pt completed fine motor task with nuts and bolts with 2# weights in place to increase strength and fine motor control. Pt returned to room, transferred to EOB with modified independence. Pt in bed with needs met after session. OT Short Term Goals Short Term Goals Time Frame: February 13, 2017 Bathing(FIM): 5 Lower Body Dressing(FIM): 5 Toileting(FIM): 5 Transfers (B,C,W/C) (FIM): 5 Toilet/Commode Transfer(FIM): 5 Additional Short Term Goals: 1-Demonstrate ADL Tasks, 2-Verbalize Understanding , 3-ImproveStrength/Miranda 1=Demonstrate adherence to instructed precautions during ADL tasks. 2=Patient will verbalize/demonstrate understanding of assistive devices/ modifications for ADL. 3=Patient will improve strength/tolerance for activity to enable patient to perform ADL's. OT Stock Parts Fabricator Goals Shelter Goals Time Frame: February 27, 2017 Eating (FIM): 6 Eating (QC): 6 Groomin Oral Hygiene (QC): 6 Bathing(FIM): 5 Shower/Bathe Self (QC): 5 Upper Body Dressing(FIM): 6 Upper Body Dressing (QC): 6 Lower Body Dressing(FIM): 6 Lower Body Dressing (QC): 6 On/Off Footwear (QC): 6 Toileting(FIM): 6 Toileting Hygiene (QC): 6 Toilet/Commode Transfer(FIM): 6 Toilet/Commode Transfer (QC): 6 Shower Transfer(FIM): 5 Additional Goals: 1-Demonstrate ADL Tasks, 2-Verbalize Understanding, 3- ImproveStrength/Miranda 1=Demonstrate adherence to instructed precautions during ADL tasks. 2=Patient will verbalize/demonstrate understanding of assistive devices/ modifications for ADL. 3=Patient will improve strength/tolerance for activity to enable patient to perform ADL's. OT Education/Plan Problem List/Assessment Pt s/p left BKA with decreased mobility, ADL functioning, and strength. Pt to benefit from skilled OT intervention for ADL training, transfers, strengthening , and home safety education to maximize level of function and allow safe discharge. Discharge Recommendations Plan/Recommendations: Continue POC Treatment Plan/Plan of Care Patient would benefit from OT for education, treatment and training to promote independence in ADL's, mobility, safety and/or upper extremity function for ADL' s. Plan of Care: ADL Retraining, Functional Mobility, Group Exercise/Act as Ind, UE Funct Exercise/Act Treatment Duration: February 27, 2017 Visits Per Week: 10-12 Minutes/Day (M-F): 60-90 Minutes/Day (Sat/Maier): PRN Agreement: Yes Rehab Potential: Good Time/GCodes Start Time: 09:00 Stop Time: 10:00 Total Time Billed (hr/min): 60 Billed Treatment Time 1 visit, EXx4(60minutes) DARIO RUCKER OT February 13, 2017 12:59
--- NOTE | 2017-02-13 13:29 | Physical Therapy Daily Note ---
PT Daily Note-Current Subjective Pt. agrees to Rx, states he feels completely comfortable thinking about how he will get around at home after DC Pain Numeric Pain Scale: 0-No Pain Mental Status Attachments: Other-See Comments (donns splint/ residual limb protector indep) Transfers Functional [place] Measure 0=Not Assessed/NA 4=Minimal Assistance 1=Total Assistance 5=Supervision or Setup 2=Maximal Assistance 6=Modified [place] 3=Moderate Assistance 7=Complete IndependenceIRFPAI Quality Coding Scale 6 Independent with activity with or without an assistive device 5 Patient requires set up or clean up by helper. Patient completes activity by themselves 4 Supervision or touching assist (CGA). [place] provide cues , steadying assist 3 The helper provides less than half the effort to complete the activity 2 The helper provides more than half the effort to complete the activity 1 Dependent. The helper does all the effort to complete an activity 7 Patient refused to complete or attempt activity 9 The patient did not perform the activity before the current illness or injury 88 Not attempted due to Medical conditions or safety concerns sup to sit to stand all SBA to CGA. SPT with FWW to w/c SBA Gait Training Does the Patient Walk?: Yes Gait Assistive Device: FWW 55ftx3 FWW CGA to SBA better alignement Wheelchair Training Type of Wheelchair: Manual slow, 100ft good skills Exercises Seated Therapy Exercises: Sit to stand (arm chair push ups), Long arc quads, Hip flexion Seated Reps: 15 Assessment Current Status: Good Progress appears fatigued PT Short Term Goals Short Term Goals Time Frame: February 13, 2017 Transfers (B,C,W/C) (FIM): 5 Gait (FIM): 1 Gait Distance Comment: 30' Gait Level of Assist: 4 Gait Assistive Device: FWW Wheelchair Distance: 150'x2 PT Geoscience Technician Goals Geoscience Technician Goals PT Halfway Goals Time Frame: February 27, 2017 Transfers (B,C,W/C) (FIM): 6 Sit to Lying (QC): 6 Lying-Sitting on Side/Bed(QC): 6 Sit to Stand (QC): 6 Rollin Roll Left to Right (QC): 6 Chair/Emx-rg-Iyuoz Xfer(QC): 4 Car Transfer (QC): 4 Gait (FIM): 2 Distance: 50' Walk 10 feet (QC): 4 Walk 10ft-Uneven Surface(QC): 4 Walk 50ft with 2 Turns (QC): 4 Walk 150 ft (QC): 88 Gait Level of Assist: 5 Gait Assistive Device: FWW Wheelchair (FIM): 6 Distance: 150' Wheel 50 feet with 2 turns (QC: 6 PT Plan Treatment/Plan Treatment Plan: Continue Plan of Care Treatment Plan: Bed Mobility, Education, Functional Activity Miranda, Functional Strength, Group Therapy, Gait, Safety, Therapeutic Exercise, Transfers Treatment Duration: February 27, 2017 Visits Per Week: 10-11 Minutes/Day (M-F): 60-90 Minutes/Day (Sat/Maier): 15-30 Safety Risks/Education Patient Education: Gait Training, Transfer Techniques, W/C Management, Safety Issues Teaching Recipient: Patient Teaching Methods: Demonstration, Discussion Response to Teaching: Verbalize Understanding, Return Demonstration, Reinforcement Needed discussed safety issues jake for TRFs and gait, pt. occas forgets to lock w/c at TRF Time/GCodes Time In: 1300 Time Out: 1330 Total Billed Treatment Time: 30 Total Billed Treatment 1.GT15,FA15 G Codes Necessary: DIONNE Martínez AEROSPACE ENGINEER February 13, 2017 13:29
--- NOTE | 2017-02-13 14:46 | Occupational Ther Daily Note ---
OT Current Status-Daily Note Subjective Pt in bed, agrees to treatment. Mental Status/Objective Functional [place] Measure 0=Not Assessed/NA 4=Minimal Assistance 1=Total Assistance 5=Supervision or Setup 2=Maximal Assistance 6=Modified [place] 3=Moderate Assistance 7=Complete [place] ADL-Treatment Pt supine to sit with modified independence. Don right shoe without assist while seated EOB. Pt transferred EOB <-> w/c x3 trials with SBA to modified independence. Pt performed w/c mobility to shower room without assist. Pt states he has a tub/shower combo at home. Education provided regarding use of tub bench for safe tub transfer. Pt transferred w/c <-> shower bench with SBA using grab bars for safety. Pt has no further questions at this time regarding tub transfers. Pt completed toilet transfers x2 to improve safety and independence with transfers. Pt demonstrated ability to perform transfer with modified independence using grab bar. Pt returned to bed after session with needs met. Functional [place] Measure 0=Not Assessed/NA 4=Minimal Assistance 1=Total Assistance 5=Supervision or Setup 2=Maximal Assistance 6=Modified [place] 3=Moderate Assistance 7=Complete IndependenceIRFPAI Quality Coding Scale 6 Independent with activity with or without an assistive device 5 Patient requires set up or clean up by helper. Patient completes activity by themselves 4 Supervision or touching assist (CGA). [place] provide cues , steadying assist 3 The helper provides less than half the effort to complete the activity 2 The helper provides more than half the effort to complete the activity 1 Dependent. The helper does all the effort to complete an activity 7 Patient refused to complete or attempt activity 9 The patient did not perform the activity before the current illness or injury 88 Not attempted due to Medical conditions or safety concerns OT Short Term Goals Short Term Goals Time Frame: February 13, 2017 Bathing(FIM): 5 Lower Body Dressing(FIM): 5 Toileting(FIM): 5 Transfers (B,C,W/C) (FIM): 5 Toilet/Commode Transfer(FIM): 5 Additional Short Term Goals: 1-Demonstrate ADL Tasks, 2-Verbalize Understanding , 3-ImproveStrength/Miranda 1=Demonstrate adherence to instructed precautions during ADL tasks. 2=Patient will verbalize/demonstrate understanding of assistive devices/ modifications for ADL. 3=Patient will improve strength/tolerance for activity to enable patient to perform ADL's. OT Shelter Goals [place] Goals Time Frame: February 27, 2017 Eating (FIM): 6 Eating (QC): 6 Groomin Oral Hygiene (QC): 6 Bathing(FIM): 5 Shower/Bathe Self (QC): 5 Upper Body Dressing(FIM): 6 Upper Body Dressing (QC): 6 Lower Body Dressing(FIM): 6 Lower Body Dressing (QC): 6 On/Off Footwear (QC): 6 Toileting(FIM): 6 Toileting Hygiene (QC): 6 Toilet/Commode Transfer(FIM): 6 Toilet/Commode Transfer (QC): 6 Shower Transfer(FIM): 5 Additional Goals: 1-Demonstrate ADL Tasks, 2-Verbalize Understanding, 3- ImproveStrength/Miranda 1=Demonstrate adherence to instructed precautions during ADL tasks. 2=Patient will verbalize/demonstrate understanding of assistive devices/ modifications for ADL. 3=Patient will improve strength/tolerance for activity to enable patient to perform ADL's. OT Education/Plan Problem List/Assessment Pt s/p left BKA with decreased mobility, ADL functioning, and strength. Pt to benefit from skilled OT intervention for ADL training, transfers, strengthening , and home safety education to maximize level of function and allow safe discharge. Discharge Recommendations Plan/Recommendations: Continue POC Treatment Plan/Plan of Care Patient would benefit from OT for education, treatment and training to promote independence in ADL's, mobility, safety and/or upper extremity function for ADL' s. Plan of Care: ADL Retraining, Functional Mobility, Group Exercise/Act as Ind, UE Funct Exercise/Act Treatment Duration: February 27, 2017 Visits Per Week: 10-12 Minutes/Day (M-F): 60-90 Minutes/Day (Sat/Maier): PRN Agreement: Yes Rehab Potential: Good Time/GCodes Start Time: 11:30 Stop Time: 12:00 Total Time Billed (hr/min): 30 Billed Treatment Time 1 visit, ADLx2(30minutes) DARIO RUCKER OT February 13, 2017 14:46
[2017-02-13 18:53] VITALS: BP 151/77
[2017-02-13] MEDS: FINASTERIDE (PROSCAR) 5 MG TAB PO SCH (20:38)
[2017-02-13] MEDS: ZOLPIDEM 5 MG (AMBIEN) TAB PO PRN (22:03)
[2017-02-14 05:00] VITALS: BP 132/67
[2017-02-14] MEDS: inSUlin (REGULAR) HUMAN 1 UNIT/0.01 ML (CHARGE PER UNIT) SC SCH ×4 (06:29→21:17)
[2017-02-14] MEDS: IBUPROFEN 800 MG (MOTRIN) TAB PO SCH ×3 (06:30→21:09)
[2017-02-14] MEDS: metFORMIN 500 MG (GLUCOPHAGE) TAB PO SCH (06:30)
[2017-02-14 06:43] LABS: MEAN PLATELET VOLUME 10.1 FL (7.4-10.4); RED BLOOD COUNT 3.62 10^6/uL (4.35-5.85); RED CELL DISTRIBUTION WIDTH 15.9 % (10.0-14.5); WHITE BLOOD COUNT 6.1 10^3/uL (4.3-11.0)
[2017-02-14 06:58] LABS: CALCIUM 10.6 MG/DL (8.5-10.1); CREATININE SERUM 1.67 MG/DL (0.60-1.30); POTASSIUM 5.4 MMOL/L (3.6-5.0)
--- NOTE | 2017-02-14 08:56 | Progress Note (SOAP) ---
Subjective Subjective/Events-last exam patient working hard area Patient voices no complaints. Left BKA. Diabetes. Renal sufficiency. Hyperkalemia better Objective Exam Vital Signs Date Time Temp Pulse Resp B/P (MAP) Pulse Ox O2 Delivery O2 Flow Rate FiO2 02/14/17 05:00 97.8 89 20 132/67 95 Room Air 02/13/17 18:53 99.1 90 20 151/77 97 Room Air I & O 02/14/17 07:00 Intake Total 890 ml Output Total 1050 ml Balance -160 ml Capillary Refill : General Appearance: No Apparent Distress, Thin HEENT: Normal ENT Inspection Neck: Full Range of Motion, Normal Inspection Respiratory: Chest Non Tender, Lungs Clear, Normal Breath Sounds, No Accessory Muscle Use, No Respiratory Distress Cardiovascular: Regular Rate, Rhythm, No Murmur Gastrointestinal: non tender, soft Results Lab Laboratory Tests 02/14/17 05:50 Laboratory Tests 02/13/17 10:51: Glucometer 140H 02/13/17 16:01: Glucometer 101 02/13/17 21:06: Glucometer 125H 02/14/17 05:50: White Blood Count 6.1, Red Blood Count 3.62L, Hemoglobin 9.2L, Hematocrit 30L, Mean Corpuscular Volume 83, Mean Corpuscular Hemoglobin 25, Mean Corpuscular Hemoglobin Concent 31L, Red Cell Distribution Width 15.9H, Platelet Count 606H, Mean Platelet Volume 10.1, Sodium Level 136, Potassium Level 5.4H, Chloride Level 101, Carbon Dioxide Level 24, Anion Gap 11, Blood Urea Nitrogen 61H, Creatinine 1.67H, Estimat Glomerular Filtration Rate 50, BUN/Creatinine Ratio 37 , Glucose Level 190H, Calcium Level 10.6H 02/14/17 05:51: Glucometer 207H Assessment/Plan Assessment/Plan Assess & Plan/Chief Complaint below the knee amputation. Diabetes. . 02/07/17. BKA. Diabetes. Nonspecific vague complaints. . 02/08/17 below the knee amputation. Diabetes. Patient feeling much better today. Patient did well with physical and occupational therapy yesterday Patient a work in progress. . 02/11/17. Below the knee amputation. Diabetes Patient working hard. . 02/12/17. Low the knee amputation. Diabetes. Patient not eating good or drinking good. Hypoglycemia. Hyperkalemia. GFR increasing. To hold lisinopril. To patient to take more fluids and eat better. . BKA. 02/13/17. Diabetes. Renal insufficiency better. Hyperkalemia potassium 6.1 to receive Kayexalate. . 02/14/17. BKA. Diabetes. Renal Insufficiency. Hyperkalemia better. Patient working hard Clinical Quality Measures DVT/VTE Risk/Contraindication: Risk Factor Score Per Nursin RFS Level Per Nursing on Admit: 4+=Very High TERRI TAVAREZ DO February 14, 2017 08:56
[2017-02-14] MEDS: AMITRIPTYLINE 25 MG (ELAVIL) TAB PO SCH ×2 (09:34→21:09)
[2017-02-14] MEDS: DIGOXIN 0.25 MG (LANOXIN) TAB PO SCH (09:34)
[2017-02-14] MEDS: ASPIRIN E.C. 325 MG (ECOTRIN) TABLET PO SCH (09:34)
[2017-02-14] MEDS: CARVEDILOL 12.5 MG (COREG) TABLET PO SCH ×2 (09:35→21:09)
[2017-02-14] MEDS: HYDROcodone/APAP 10 MG/325 MG (LORTAB) TAB PO PRN (09:35)
[2017-02-14] MEDS: PRASUGREL 10 MG (EFFIENT) TABLET PO SCH (09:35)
[2017-02-14] MEDS: GABAPENTIN 300 MG (NEURONTIN) CAP PO SCH ×3 (09:49→21:09)
--- NOTE | 2017-02-14 11:04 | Physical Therapy Daily Note ---
PT Daily Note-Current Subjective Agrees to PT. Reports he feels tired this morning. Reports he was up at 5 am, but returned to bed. Mental Status Patient Orientation: Person, Place, Time, Situation Transfers Functional [place] Measure 0=Not Assessed/NA 4=Minimal Assistance 1=Total Assistance 5=Supervision or Setup 2=Maximal Assistance 6=Modified [place] 3=Moderate Assistance 7=Complete IndependenceIRFPAI Quality Coding Scale 6 Independent with activity with or without an assistive device 5 Patient requires set up or clean up by helper. Patient completes activity by themselves 4 Supervision or touching assist (CGA). [place] provide cues , steadying assist 3 The helper provides less than half the effort to complete the activity 2 The helper provides more than half the effort to complete the activity 1 Dependent. The helper does all the effort to complete an activity 7 Patient refused to complete or attempt activity 9 The patient did not perform the activity before the current illness or injury 88 Not attempted due to Medical conditions or safety concerns Transfers (B, C, W/C) (FIM): 4 Supine to/from Sit: 6 Sit to/from Stand: 5 Bed to/from Chair: 4 (CGA for safety; cues/reminders for wheelchair brakes) Pt performed SPT x 6 reps this morning. Pt able to transfer with CGA and reached across surface to turn. He also uses FWW for transfer, depending on the situation. CGA for all. Gait Training Does the Patient Walk?: Yes Gait (FIM): 2 Distance (FIM): 1=up to 49 ft Gait Assistive Device: FWW Pt hopped 30 ft x 2 with FWW with close CGA for safety. Working on LE strength , functional balance and UE strength with the hopping activity. Wheelchair Training Does the Pt Use a Wheelchair?: Yes Wheelchair (FIM): 6 Wheelchair Distance: 3=150 ft Type of Wheelchair: Manual mod indep with FWW >300 ft x 2 Exercises Supine Ex: Ankle pumps, Pelvic tilt, Quad Set, Glut sets, Heel Slides, Short Arc Quads, Straight leg raise, Hip abd/add Supine Reps: 15 (to promote strength for functional transfers and mobility. ) Assessment Current Status: Good Progress Pt seems tired today but cooperative and motivated. As the treatment progressed he seemed to perk up. PT Short Term Goals Short Term Goals Time Frame: February 13, 2017 Transfers (B,C,W/C) (FIM): 5 Gait (FIM): 1 (met) Gait Distance Comment: 30' Gait Level of Assist: 4 Gait Assistive Device: FWW Wheelchair Distance: 150'x2 PT Chcf Goals Dielectric Embossing Machine Operator Goals PT Chcf Goals Time Frame: February 27, 2017 Transfers (B,C,W/C) (FIM): 6 Sit to Lying (QC): 6 Lying-Sitting on Side/Bed(QC): 6 Sit to Stand (QC): 6 Rollin Roll Left to Right (QC): 6 Chair/Jjo-fv-Gqcwy Xfer(QC): 4 Car Transfer (QC): 4 Gait (FIM): 2 Distance: 50' Walk 10 feet (QC): 4 Walk 10ft-Uneven Surface(QC): 4 Walk 50ft with 2 Turns (QC): 4 Walk 150 ft (QC): 88 Gait Level of Assist: 5 Gait Assistive Device: FWW Wheelchair (FIM): 6 Distance: 150' Wheel 50 feet with 2 turns (QC: 6 PT Plan Problem List Problem List: Activity Tolerance, Functional Strength, Safety, Balance, Gait, Transfer Treatment/Plan Treatment Plan: Continue Plan of Care Treatment Plan: Bed Mobility, Education, Functional Activity Miranda, Functional Strength, Group Therapy, Gait, Safety, Therapeutic Exercise, Transfers Treatment Duration: February 27, 2017 Visits Per Week: 10-11 Minutes/Day (M-F): 60-90 Minutes/Day (Sat/Maier): 15-30 Safety Risks/Education Patient Education: Transfer Techniques, Safety Issues Teaching Recipient: Patient Teaching Methods: Demonstration, Discussion Response to Teaching: Reinforcement Needed Time/GCodes Time In: 800 Time Out: 900 Total Billed Treatment Time: 60 Total Billed Treatment visit EX 30 WC 15 FA 15 DARA GANDARA PT February 14, 2017 11:04
--- NOTE | 2017-02-14 11:40 | Occupational Ther Daily Note ---
OT Current Status-Daily Note Subjective Pt sitting EOB eating breakfast, agrees to treatment. Pt reports 3/10 left LE pain. Mental Status/Objective Functional [place] Measure 0=Not Assessed/NA 4=Minimal Assistance 1=Total Assistance 5=Supervision or Setup 2=Maximal Assistance 6=Modified [place] 3=Moderate Assistance 7=Complete [place] ADL-Treatment Pt able to open packages and feed self with modified independence. Transfer EOB to w/c SBA. Pt performed w/c mobility to therapy gym without assistance. Pt states he took a shower last with assist from spouse. Pt is already dressed this morning. Functional [place] Measure 0=Not Assessed/NA 4=Minimal Assistance 1=Total Assistance 5=Supervision or Setup 2=Maximal Assistance 6=Modified [place] 3=Moderate Assistance 7=Complete IndependenceIRFPAI Quality Coding Scale 6 Independent with activity with or without an assistive device 5 Patient requires set up or clean up by helper. Patient completes activity by themselves 4 Supervision or touching assist (CGA). [place] provide cues , steadying assist 3 The helper provides less than half the effort to complete the activity 2 The helper provides more than half the effort to complete the activity 1 Dependent. The helper does all the effort to complete an activity 7 Patient refused to complete or attempt activity 9 The patient did not perform the activity before the current illness or injury 88 Not attempted due to Medical conditions or safety concerns Eating (FIM): 6 Eating (QC): 6 Other Treatment Pt stood with FWW for henriquez bag toss using bilateral UE to promote increased standing balance needed for ADLs and transfers. Pt requires CGA for balance during activity. One seated rest break. Pt performed bilateral UE exercises to promote increased strength needed for ADLs and transfers. Pt performed shoulder flexion, abduction, biceps curls, and triceps extension exercises x20 reps with moderate resistance (red) theraband. Increased time for exercises. Rest breaks between exercises. W/c pushups x10 reps to increase strength for transfers. Pt completed arm arc activity with bilateral UE with 2# weights in place to increase strength for functional tasks. Pt returned to EOB with needs met after session. OT Short Term Goals Short Term Goals Time Frame: February 13, 2017 Bathing(FIM): 5 Lower Body Dressing(FIM): 5 Toileting(FIM): 5 Transfers (B,C,W/C) (FIM): 5 Toilet/Commode Transfer(FIM): 5 Additional Short Term Goals: 1-Demonstrate ADL Tasks, 2-Verbalize Understanding , 3-ImproveStrength/Miranda 1=Demonstrate adherence to instructed precautions during ADL tasks. 2=Patient will verbalize/demonstrate understanding of assistive devices/ modifications for ADL. 3=Patient will improve strength/tolerance for activity to enable patient to perform ADL's. OT Counselor Marriage And Family Goals Counselor Marriage And Family Goals Time Frame: February 27, 2017 Eating (FIM): 6 Eating (QC): 6 Groomin Oral Hygiene (QC): 6 Bathing(FIM): 5 Shower/Bathe Self (QC): 5 Upper Body Dressing(FIM): 6 Upper Body Dressing (QC): 6 Lower Body Dressing(FIM): 6 Lower Body Dressing (QC): 6 On/Off Footwear (QC): 6 Toileting(FIM): 6 Toileting Hygiene (QC): 6 Toilet/Commode Transfer(FIM): 6 Toilet/Commode Transfer (QC): 6 Shower Transfer(FIM): 5 Additional Goals: 1-Demonstrate ADL Tasks, 2-Verbalize Understanding, 3- ImproveStrength/Miranda 1=Demonstrate adherence to instructed precautions during ADL tasks. 2=Patient will verbalize/demonstrate understanding of assistive devices/ modifications for ADL. 3=Patient will improve strength/tolerance for activity to enable patient to perform ADL's. OT Education/Plan Problem List/Assessment Pt s/p left BKA with decreased mobility, ADL functioning, and strength. Pt to benefit from skilled OT intervention for ADL training, transfers, strengthening , and home safety education to maximize level of function and allow safe discharge. Discharge Recommendations Plan/Recommendations: Continue POC Treatment Plan/Plan of Care Patient would benefit from OT for education, treatment and training to promote independence in ADL's, mobility, safety and/or upper extremity function for ADL' s. Plan of Care: ADL Retraining, Functional Mobility, Group Exercise/Act as Ind, UE Funct Exercise/Act Treatment Duration: February 27, 2017 Visits Per Week: 10-12 Minutes/Day (M-F): 60-90 Minutes/Day (Sat/Maier): PRN Agreement: Yes Rehab Potential: Good Time/GCodes Start Time: 09:00 Stop Time: 10:00 Total Time Billed (hr/min): 60 Billed Treatment Time 1 visit, ADL(10minutes), FA(15minutes), EXx2(35minutes) DARIO RUCKER OT February 14, 2017 11:40
--- NOTE | 2017-02-14 14:30 | Therapy Group Daily Note ---
Therapy Daily Group Note Exercises LE Seated Exercise, Sit to/from Stand (x4), UE Exercise Other/Notes Pt actively participated in group therapy to include social interaction with other patients on the unit to include introductions and telling where he was from He also participated in activity of encouragement providing encouragement phrases for others in the group. Group also consisted of a modified game of "family Snapdeal" that required cognitive thinking and problem solving tasks to win the game. This patient kept score for his team as well as kept a log of answers. He actively participated in the group activity. Included in the game , we incorporated the pt to stand up when answering a question and had to toss a henriquez bag to alert they had the answer. We also performed U/LE ther ex as a "commercial break" during the game. Post group activity, this patient reported that their score won the game! He was able to manage the numbers as well as answers accurately and actively participated in the round. Start Time: 13:00 Stop Time: 14:15 Total Billed Treatment Time: 75 Total Billed Treatment visit Group 75 DARA GANDARA PT February 14, 2017 14:30
[2017-02-14 18:31] VITALS: BP 125/68
[2017-02-14] MEDS: FINASTERIDE (PROSCAR) 5 MG TAB PO SCH (21:09)
--- NOTE | 2017-02-14 22:16 | PM & R (SOAP) Progress Note ---
Subjective Subjective/Events-last exam Patient was seen in his room earlier this evening Appreciate current therapy notes and DR Soria note as well as current labs.Patient min assist for transfers Objective Exam Last Set of Vital Signs Vital Signs Date Time Temp Pulse Resp B/P (MAP) Pulse Ox O2 Delivery O2 Flow Rate FiO2 02/14/17 18:31 97.1 95 16 125/68 99 02/14/17 05:00 Room Air Capillary Refill : I&O Intake and Output 02/14/17 00:00 Intake Total 1240 ml Output Total 1275 ml Balance -35 ml Intake Oral 1240 ml Output Urine Total 1275 ml # Bowel Movements 1 General: Alert, No Acute Distress HEENT: Atraumatic, PERRLA, EOMI, Mucous Memb Moist/[place] Neck: Supple, No JVD Lungs: Normal Air Movement Heart: Regular Rate Abdomen: Normal Bowel Sounds, Soft, No Tenderness Extremities: Other (Left BKA wrapped with mild tenderness) Skin: Other (Left below-knee amputation site is healed.) Neuro: Other (generalized weakness has active movement left knee) Results Lab Laboratory Tests 02/12/17 04:54: Glucometer 47*L 02/12/17 05:06: Glucometer 56*L 02/12/17 05:19: Glucometer 46*L 02/12/17 05:33: Glucometer 112H 02/12/17 06:06: Sodium Level 136, Potassium Level 5.8H, Chloride Level 102, Carbon Dioxide Level 24, Anion Gap 10, Blood Urea Nitrogen 59H, Creatinine 1.99H, Estimat Glomerular Filtration Rate 40, BUN/Creatinine Ratio 30, Glucose Level 77, Calcium Level 10.3H 02/12/17 07:38: Glucometer 88 02/12/17 10:59: Glucometer 168H 02/12/17 15:54: Glucometer 174H 02/12/17 20:21: Glucometer 202H 02/13/17 04:44: Glucometer 137H 02/13/17 05:25: White Blood Count 6.0, Red Blood Count 3.11L, Hemoglobin 7.9L, Hematocrit 26L, Mean Corpuscular Volume 82, Mean Corpuscular Hemoglobin 25, Mean Corpuscular Hemoglobin Concent 31L, Red Cell Distribution Width 15.6H, Platelet Count 532H, Mean Platelet Volume 9.9, Sodium Level 135, Potassium Level 6.1H, Chloride Level 103, Carbon Dioxide Level 24, Anion Gap 8, Blood Urea Nitrogen 60H, Creatinine 1.56H, Estimat Glomerular Filtration Rate 54, BUN/Creatinine Ratio 38 , Glucose Level 122H, Calcium Level 9.9 02/13/17 10:51: Glucometer 140H 02/13/17 16:01: Glucometer 101 02/13/17 21:06: Glucometer 125H 02/14/17 05:50: White Blood Count 6.1, Red Blood Count 3.62L, Hemoglobin 9.2L, Hematocrit 30L, Mean Corpuscular Volume 83, Mean Corpuscular Hemoglobin 25, Mean Corpuscular Hemoglobin Concent 31L, Red Cell Distribution Width 15.9H, Platelet Count 606H, Mean Platelet Volume 10.1, Sodium Level 136, Potassium Level 5.4H, Chloride Level 101, Carbon Dioxide Level 24, Anion Gap 11, Blood Urea Nitrogen 61H, Creatinine 1.67H, Estimat Glomerular Filtration Rate 50, BUN/Creatinine Ratio 37 , Glucose Level 190H, Calcium Level 10.6H 02/14/17 05:51: Glucometer 207H 02/14/17 10:59: Glucometer 177H 02/14/17 16:00: Glucometer 237H 02/14/17 20:24: Glucometer 220H Assessment/Plan Assessment S/P LBKA OSH DR Salgado IDDM Postop anemia Plan Continue PT/OT Discharge set tentatively for 02/18/17 Team Conference hed yesterday-see report for full functional update and POC JOHNIE RANDALL MD February 14, 2017 22:16
[2017-02-15 05:00] VITALS: BP 121/69
[2017-02-15] MEDS: inSUlin (REGULAR) HUMAN 1 UNIT/0.01 ML (CHARGE PER UNIT) SC SCH ×4 (05:50→20:48)
[2017-02-15] MEDS: IBUPROFEN 800 MG (MOTRIN) TAB PO SCH ×3 (06:00→22:29)
[2017-02-15 07:18] LABS: CALCIUM 9.9 MG/DL (8.5-10.1); CREATININE SERUM 1.51 MG/DL (0.60-1.30); POTASSIUM 5.4 MMOL/L (3.6-5.0)
--- NOTE | 2017-02-15 08:05 | Progress Note (SOAP) ---
Subjective Subjective/Events-last exam left BKA. Diabetes. Patient feeling better. Patient voices no complaints today Objective Exam Vital Signs Date Time Temp Pulse Resp B/P (MAP) Pulse Ox O2 Delivery O2 Flow Rate FiO2 02/15/17 05:00 99.1 80 20 121/69 97 02/14/17 18:31 97.1 95 16 125/68 99 I & O 02/15/17 07:00 Intake Total 1140 ml Output Total 1000 ml Balance 140 ml Capillary Refill : General Appearance: No Apparent Distress, Thin HEENT: Normal ENT Inspection Neck: Normal Inspection Respiratory: Chest Non Tender, Lungs Clear, Normal Breath Sounds, No Accessory Muscle Use, No Respiratory Distress Cardiovascular: Regular Rate, Rhythm, No Murmur Results Lab Laboratory Tests 02/14/17 10:59: Glucometer 177H 02/14/17 16:00: Glucometer 237H 02/14/17 20:24: Glucometer 220H 02/15/17 05:26: Glucometer 151H 02/15/17 05:27: Sodium Level 139, Potassium Level 5.4H, Chloride Level 106, Carbon Dioxide Level 25, Anion Gap 8, Blood Urea Nitrogen 61H, Creatinine 1.51H, Estimat Glomerular Filtration Rate 56, BUN/Creatinine Ratio 40, Glucose Level 144H, Calcium Level 9.9 Assessment/Plan Assessment/Plan Assess & Plan/Chief Complaint below the knee amputation. Diabetes. . 02/07/17. BKA. Diabetes. Nonspecific vague complaints. . 02/08/17 below the knee amputation. Diabetes. Patient feeling much better today. Patient did well with physical and occupational therapy yesterday Patient a work in progress. . 02/11/17. Below the knee amputation. Diabetes Patient working hard. . 02/12/17. Low the knee amputation. Diabetes. Patient not eating good or drinking good. Hypoglycemia. Hyperkalemia. GFR increasing. To hold lisinopril. To patient to take more fluids and eat better. . BKA. 02/13/17. Diabetes. Renal insufficiency better. Hyperkalemia potassium 6.1 to receive Kayexalate. . 02/14/17. BKA. Diabetes. Renal Insufficiency. Hyperkalemia better. Patient working hard. . BKA. Diabetes. Renal insufficiency. Hyperkalemia. Clinical Quality Measures DVT/VTE Risk/Contraindication: Risk Factor Score Per Nursin RFS Level Per Nursing on Admit: 4+=Very High TERRI TAVAREZ DO February 15, 2017 08:05
[2017-02-15] MEDS: GABAPENTIN 300 MG (NEURONTIN) CAP PO SCH ×3 (08:37→20:39)
[2017-02-15] MEDS: DIGOXIN 0.25 MG (LANOXIN) TAB PO SCH (08:37)
[2017-02-15] MEDS: AMITRIPTYLINE 25 MG (ELAVIL) TAB PO SCH ×2 (08:37→20:39)
[2017-02-15] MEDS: PRASUGREL 10 MG (EFFIENT) TABLET PO SCH (08:37)
[2017-02-15] MEDS: CARVEDILOL 12.5 MG (COREG) TABLET PO SCH ×2 (08:38→20:39)
[2017-02-15] MEDS: ASPIRIN E.C. 325 MG (ECOTRIN) TABLET PO SCH (08:38)
[2017-02-15] MEDS: HYDROcodone/APAP 10 MG/325 MG (LORTAB) TAB PO PRN ×2 (10:12→20:39)
--- NOTE | 2017-02-15 10:46 | PM & R (SOAP) Progress Note ---
Subjective Subjective/Events-last exam Patient was seen in his room this AM Appreciate DR Soria notes and orderes as well as therapy notes Patient min assist for transfers Labs reviewed Serum K coming downafter a dose of Kayexelate Review of Systems Musculoskeletal: leg pain Objective Exam Last Set of Vital Signs Vital Signs Date Time Temp Pulse Resp B/P (MAP) Pulse Ox O2 Delivery O2 Flow Rate FiO2 02/15/17 05:00 99.1 80 20 121/69 97 02/14/17 05:00 Room Air Capillary Refill : I&O Intake and Output 02/15/17 00:00 Intake Total 1190 ml Output Total 1025 ml Balance 165 ml Intake Oral 1190 ml Output Urine Total 1025 ml # Voids 2 General: Alert, No Acute Distress HEENT: Atraumatic, PERRLA, EOMI, Mucous Memb Moist/[place] Neck: Supple, No JVD Lungs: Normal Air Movement Heart: Regular Rate Abdomen: Normal Bowel Sounds, Soft, No Tenderness Extremities: Other (Left BKA wrapped with mild tenderness) Skin: Other (Left below-knee amputation site is healed.) Neuro: Other (generalized weakness has active movement left knee) Results Lab Laboratory Tests 02/12/17 10:59: Glucometer 168H 02/12/17 15:54: Glucometer 174H 02/12/17 20:21: Glucometer 202H 02/13/17 04:44: Glucometer 137H 02/13/17 05:25: White Blood Count 6.0, Red Blood Count 3.11L, Hemoglobin 7.9L, Hematocrit 26L, Mean Corpuscular Volume 82, Mean Corpuscular Hemoglobin 25, Mean Corpuscular Hemoglobin Concent 31L, Red Cell Distribution Width 15.6H, Platelet Count 532H, Mean Platelet Volume 9.9, Sodium Level 135, Potassium Level 6.1H, Chloride Level 103, Carbon Dioxide Level 24, Anion Gap 8, Blood Urea Nitrogen 60H, Creatinine 1.56H, Estimat Glomerular Filtration Rate 54, BUN/Creatinine Ratio 38 , Glucose Level 122H, Calcium Level 9.9 02/13/17 10:51: Glucometer 140H 02/13/17 16:01: Glucometer 101 02/13/17 21:06: Glucometer 125H 02/14/17 05:50: White Blood Count 6.1, Red Blood Count 3.62L, Hemoglobin 9.2L, Hematocrit 30L, Mean Corpuscular Volume 83, Mean Corpuscular Hemoglobin 25, Mean Corpuscular Hemoglobin Concent 31L, Red Cell Distribution Width 15.9H, Platelet Count 606H, Mean Platelet Volume 10.1, Sodium Level 136, Potassium Level 5.4H, Chloride Level 101, Carbon Dioxide Level 24, Anion Gap 11, Blood Urea Nitrogen 61H, Creatinine 1.67H, Estimat Glomerular Filtration Rate 50, BUN/Creatinine Ratio 37 , Glucose Level 190H, Calcium Level 10.6H 02/14/17 05:51: Glucometer 207H 02/14/17 10:59: Glucometer 177H 02/14/17 16:00: Glucometer 237H 02/14/17 20:24: Glucometer 220H 02/15/17 05:26: Glucometer 151H 02/15/17 05:27: Sodium Level 139, Potassium Level 5.4H, Chloride Level 106, Carbon Dioxide Level 25, Anion Gap 8, Blood Urea Nitrogen 61H, Creatinine 1.51H, Estimat Glomerular Filtration Rate 56, BUN/Creatinine Ratio 40, Glucose Level 144H, Calcium Level 9.9 Assessment/Plan Assessment S/P LBKA OSH DR Salgado IDDM Postop anemia Hyperkalemia improving s/p dose of Kayexelate Plan Continue PT/OT Discharge set tentatively for 02/18/17 Team Conference [facility] 02/13/17--see report for full functional update and POC Recheck serum K see orders JOHNIE RANDALL MD February 15, 2017 10:45
--- NOTE | 2017-02-15 11:42 | Occupational Ther Daily Note ---
OT Current Status-Daily Note Subjective Pt in bed, states he is tired this morning. Agrees to treatment. Mental Status/Objective Functional [place] Measure 0=Not Assessed/NA 4=Minimal Assistance 1=Total Assistance 5=Supervision or Setup 2=Maximal Assistance 6=Modified [place] 3=Moderate Assistance 7=Complete [place] ADL-Treatment Pt supine to sit with modified independence. Pt declined to shower or change clothes today, states he will wait until later. Pt donned right shoe independently at EOB. Transfer EOB to w/c with modified independence. W/c mobility to restroom without assistance. Pt completed grooming tasks seated at sink. Washed face and brushed teeth with modified independence and increased time. Pt used urinal with set up. Able to manage clothing without assistance. Pt requires increased time for ADL tasks. Pt's meal tray arrived at end of session. Pt able to feed self without assistance. Functional [place] Measure 0=Not Assessed/NA 4=Minimal Assistance 1=Total Assistance 5=Supervision or Setup 2=Maximal Assistance 6=Modified [place] 3=Moderate Assistance 7=Complete IndependenceIRFPAI Quality Coding Scale 6 Independent with activity with or without an assistive device 5 Patient requires set up or clean up by helper. Patient completes activity by themselves 4 Supervision or touching assist (CGA). [place] provide cues , steadying assist 3 The helper provides less than half the effort to complete the activity 2 The helper provides more than half the effort to complete the activity 1 Dependent. The helper does all the effort to complete an activity 7 Patient refused to complete or attempt activity 9 The patient did not perform the activity before the current illness or injury 88 Not attempted due to Medical conditions or safety concerns Grooming (FIM): 6 Oral Hygiene (QC): 6 On/Off Footwear (QC): 6 Toileting (FIM): 5 Other Treatment Pt performed w/c mobility to therapy gym without assistance. Pt completed bilateral UE exercises to promote increased strength needed for ADLs and transfers. Pt performed shoulder flexion, abduction, biceps curls, and triceps extension exercises x15 reps with 2# weights. Rest breaks between exercises. W/ c push ups x10 to increase strength needed for transfers. Graded clothespin activity completed with bilateral hands to increase vehicle trimmer/pinch strength. Pt returned to room, sitting EOB eating breakfast after session. RN present. OT Short Term Goals Short Term Goals Time Frame: February 13, 2017 Bathing(FIM): 5 Lower Body Dressing(FIM): 5 Toileting(FIM): 5 Transfers (B,C,W/C) (FIM): 5 Toilet/Commode Transfer(FIM): 5 Additional Short Term Goals: 1-Demonstrate ADL Tasks, 2-Verbalize Understanding , 3-ImproveStrength/Miranda 1=Demonstrate adherence to instructed precautions during ADL tasks. 2=Patient will verbalize/demonstrate understanding of assistive devices/ modifications for ADL. 3=Patient will improve strength/tolerance for activity to enable patient to perform ADL's. OT Lease Administrator Goals Lease Administrator Goals Time Frame: February 27, 2017 Eating (FIM): 6 Eating (QC): 6 Groomin Oral Hygiene (QC): 6 Bathing(FIM): 5 Shower/Bathe Self (QC): 5 Upper Body Dressing(FIM): 6 Upper Body Dressing (QC): 6 Lower Body Dressing(FIM): 6 Lower Body Dressing (QC): 6 On/Off Footwear (QC): 6 Toileting(FIM): 6 Toileting Hygiene (QC): 6 Toilet/Commode Transfer(FIM): 6 Toilet/Commode Transfer (QC): 6 Shower Transfer(FIM): 5 Additional Goals: 1-Demonstrate ADL Tasks, 2-Verbalize Understanding, 3- ImproveStrength/Miranda 1=Demonstrate adherence to instructed precautions during ADL tasks. 2=Patient will verbalize/demonstrate understanding of assistive devices/ modifications for ADL. 3=Patient will improve strength/tolerance for activity to enable patient to perform ADL's. OT Education/Plan Problem List/Assessment Pt s/p left BKA with decreased mobility, ADL functioning, and strength. Pt to benefit from skilled OT intervention for ADL training, transfers, strengthening , and home safety education to maximize level of function and allow safe discharge. Discharge Recommendations Plan/Recommendations: Continue POC Treatment Plan/Plan of Care Patient would benefit from OT for education, treatment and training to promote independence in ADL's, mobility, safety and/or upper extremity function for ADL' s. Plan of Care: ADL Retraining, Functional Mobility, Group Exercise/Act as Ind, UE Funct Exercise/Act Treatment Duration: February 27, 2017 Visits Per Week: 10-12 Minutes/Day (M-F): 60-90 Minutes/Day (Sat/[place]): PRN Agreement: Yes Rehab Potential: Good Time/GCodes Start Time: 09:00 Stop Time: 10:00 Total Time Billed (hr/min): 60 Billed Treatment Time 1 visit, ADLx2(30minutes), EXx2(30minutes) DARIO RUCKER OT February 15, 2017 11:42
--- NOTE | 2017-02-15 13:41 | Physical Therapy Daily Note ---
PT Daily Note-Current Subjective Pt. agrees to Rx. States this is the best he has felt for a while and is feeling positive about his recovery Pain Numeric Pain Scale: 0-No Pain Location: No Pain Reported Mental Status Patient Orientation: Normal For Age Attachments: Other-See Comments (residual limb splint /protector) Transfers Functional [place] Measure 0=Not Assessed/NA 4=Minimal Assistance 1=Total Assistance 5=Supervision or Setup 2=Maximal Assistance 6=Modified [place] 3=Moderate Assistance 7=Complete IndependenceIRFPAI Quality Coding Scale 6 Independent with activity with or without an assistive device 5 Patient requires set up or clean up by helper. Patient completes activity by themselves 4 Supervision or touching assist (CGA). [place] provide cues , steadying assist 3 The helper provides less than half the effort to complete the activity 2 The helper provides more than half the effort to complete the activity 1 Dependent. The helper does all the effort to complete an activity 7 Patient refused to complete or attempt activity 9 The patient did not perform the activity before the current illness or injury 88 Not attempted due to Medical conditions or safety concerns Transfers (B, C, W/C) (FIM): 6 Scootin Rollin Supine to/from Sit: 6 Sit to/from Stand: 6 Gait Training Does the Patient Walk?: Yes Gait (FIM): 4 Distance (FIM): 3=150 ft Gait Level of Assist: 4 Gait Persons Needed: 6 Gait Assistive Device: FWW Wheelchair Training Does the Pt Use a Wheelchair?: Yes Wheelchair (FIM): 6 Wheelchair Distance: 3=150 ft Wheelchair Level of Assist: 6 Type of Wheelchair: Manual Exercises Supine Ex: Bridging, Ankle pumps, Quad Set, Rolling, Glut sets, Heel Slides, Short Arc Quads, Scooting, Straight leg raise, Hip abd/add Supine Reps: 15 (side and prone as well) NuStep Minutes: 10 NuStep Workload: 2 Assessment Current Status: Good Progress meeting goals PT Short Term Goals Short Term Goals Time Frame: February 13, 2017 Transfers (B,C,W/C) (FIM): 5 Gait (FIM): 1 (met) Gait Distance Comment: 30' Gait Level of Assist: 4 Gait Assistive Device: FWW Wheelchair Distance: 150'x2 PT Head Worker Goals Head Worker Goals PT [facility] Goals Time Frame: February 27, 2017 Transfers (B,C,W/C) (FIM): 6 Sit to Lying (QC): 6 Lying-Sitting on Side/Bed(QC): 6 Sit to Stand (QC): 6 Rollin Roll Left to Right (QC): 6 Chair/Cme-mc-Tpdxt Xfer(QC): 4 Car Transfer (QC): 4 Gait (FIM): 2 Distance: 50' Walk 10 feet (QC): 4 Walk 10ft-Uneven Surface(QC): 4 Walk 50ft with 2 Turns (QC): 4 Walk 150 ft (QC): 88 Gait Level of Assist: 5 Gait Assistive Device: FWW Wheelchair (FIM): 6 Distance: 150' Wheel 50 feet with 2 turns (QC: 6 PT Plan Treatment/Plan Treatment Plan: Continue Plan of Care Treatment Plan: Bed Mobility, Education, Functional Activity Miranda, Functional Strength, Group Therapy, Gait, Safety, Therapeutic Exercise, Transfers Treatment Duration: February 27, 2017 Visits Per Week: 10-11 Minutes/Day (M-F): 60-90 Minutes/Day (Sat/[place]): 15-30 Safety Risks/Education Patient Education: Gait Training, Transfer Techniques, Correct Positioning, W/ C Management, Disease Process, Safety Issues Teaching Recipient: Patient Teaching Methods: Demonstration, Discussion Response to Teaching: Verbalize Understanding, Return Demonstration, Reinforcement Needed Time/GCodes Time In: 1100 Time Out: 1200 Total Billed Treatment Time: 60 Total Billed Treatment 1,EX30m,GT20m,WHC10m G Codes Necessary: DIONNE Martínez ELEMENTARY ELL TEACHER February 15, 2017 13:41
--- NOTE | 2017-02-15 14:01 | Therapy Group Daily Note ---
Therapy Daily Group Note Other/Notes Pt. attended group PT OT lunch session. Pt. came by w/c and required no assist to propel. Pt using foot and hands to propel. This pt. was very social and initiated much conversation mostly about family history and local legends and [place]. This greatly interested almost every person at the lunch group and created lots of fun, laughs and involvement. 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 Pt. required SBA assist to TRF back to bed. call button at hand Start Time: 12:00 Stop Time: 13:15 Total Billed Treatment Time: 75 Total Billed Treatment 1,GRP DIONNE BETANCUR OUTSIDE PLANT ENGINEER February 15, 2017 14:01
[2017-02-15 18:14] VITALS: BP 125/72
[2017-02-15] MEDS: FINASTERIDE (PROSCAR) 5 MG TAB PO SCH (20:39)
[2017-02-16] MEDS: HYDROcodone/APAP 10 MG/325 MG (LORTAB) TAB PO PRN ×4 (00:36→22:20)
[2017-02-16] MEDS: inSUlin (REGULAR) HUMAN 1 UNIT/0.01 ML (CHARGE PER UNIT) SC SCH ×4 (05:10→20:47)
[2017-02-16] MEDS: IBUPROFEN 800 MG (MOTRIN) TAB PO SCH ×3 (05:15→22:20)
[2017-02-16 05:26] VITALS: BP 138/75
[2017-02-16] MEDS: CARVEDILOL 12.5 MG (COREG) TABLET PO SCH ×2 (08:08→22:20)
[2017-02-16] MEDS: AMITRIPTYLINE 25 MG (ELAVIL) TAB PO SCH ×2 (08:08→22:20)
[2017-02-16] MEDS: GABAPENTIN 300 MG (NEURONTIN) CAP PO SCH ×3 (08:08→22:20)
[2017-02-16] MEDS: DIGOXIN 0.25 MG (LANOXIN) TAB PO SCH (08:08)
[2017-02-16] MEDS: ASPIRIN E.C. 325 MG (ECOTRIN) TABLET PO SCH (08:09)
[2017-02-16] MEDS: PRASUGREL 10 MG (EFFIENT) TABLET PO SCH (08:09)
--- NOTE | 2017-02-16 08:10 | PM & R (SOAP) Progress Note ---
Subjective Subjective/Events-last exam Patient was seen on unit this AM Self propelling W/C Independently Current labs and meds reviewed Objective Exam Last Set of Vital Signs Vital Signs Date Time Temp Pulse Resp B/P (MAP) Pulse Ox O2 Delivery O2 Flow Rate FiO2 02/16/17 05:26 97.9 79 16 138/75 98 02/14/17 05:00 Room Air Capillary Refill : I&O Intake and Output 02/16/17 00:00 Intake Total 1330 ml Output Total 1075 ml Balance 255 ml Intake Oral 1330 ml Output Urine Total 1075 ml # Voids 1 General: Alert, No Acute Distress HEENT: Atraumatic, PERRLA, EOMI, Mucous Memb Moist/[place] Neck: Supple, No JVD Lungs: Normal Air Movement Heart: Regular Rate Abdomen: Normal Bowel Sounds, Soft, No Tenderness Extremities: Other (Left BKA wrapped with mild tenderness) Skin: Other (Left below-knee amputation site is healed.) Neuro: Other (generalized weakness has active movement left knee) Results Lab Laboratory Tests 02/13/17 10:51: Glucometer 140H 02/13/17 16:01: Glucometer 101 02/13/17 21:06: Glucometer 125H 02/14/17 05:50: White Blood Count 6.1, Red Blood Count 3.62L, Hemoglobin 9.2L, Hematocrit 30L, Mean Corpuscular Volume 83, Mean Corpuscular Hemoglobin 25, Mean Corpuscular Hemoglobin Concent 31L, Red Cell Distribution Width 15.9H, Platelet Count 606H, Mean Platelet Volume 10.1, Sodium Level 136, Potassium Level 5.4H, Chloride Level 101, Carbon Dioxide Level 24, Anion Gap 11, Blood Urea Nitrogen 61H, Creatinine 1.67H, Estimat Glomerular Filtration Rate 50, BUN/Creatinine Ratio 37 , Glucose Level 190H, Calcium Level 10.6H 02/14/17 05:51: Glucometer 207H 02/14/17 10:59: Glucometer 177H 02/14/17 16:00: Glucometer 237H 02/14/17 20:24: Glucometer 220H 02/15/17 05:26: Glucometer 151H 02/15/17 05:27: Sodium Level 139, Potassium Level 5.4H, Chloride Level 106, Carbon Dioxide Level 25, Anion Gap 8, Blood Urea Nitrogen 61H, Creatinine 1.51H, Estimat Glomerular Filtration Rate 56, BUN/Creatinine Ratio 40, Glucose Level 144H, Calcium Level 9.9 02/15/17 11:03: 02/15/17 15:37: Glucometer 259H 02/15/17 20:38: Glucometer 240H 02/16/17 04:34: Glucometer 158H Assessment/Plan Assessment S/P LBKA OSH DR Salgado IDDM Postop anemia Hyperkalemia improving s/p dose of Kayexelate Plan Continue PT/ Team Conference hedl 02/13/17--see report for full functional update and POC Rechecked serum K Discharge remains set for 01/19/17 to home with family and HHC F/U with PCP and Surgeon JOHNIE RANDALL MD February 16, 2017 08:10
[2017-02-16] MEDS ORDERED: IBUP-1780 PO (08:19)
[2017-02-16] MEDS ORDERED: Finasteride PO (08:19)
[2017-02-16] MEDS ORDERED: METF500T4 PO (08:19)
[2017-02-16] MEDS ORDERED: HYDR-3820 PO (08:19)
--- NOTE | 2017-02-16 13:36 | Physical Therapy Daily Note ---
PT Daily Note-Current Subjective Pt agreeable to PT. Anxious to discharge on Saturday. Transfers Functional [place] Measure 0=Not Assessed/NA 4=Minimal Assistance 1=Total Assistance 5=Supervision or Setup 2=Maximal Assistance 6=Modified [place] 3=Moderate Assistance 7=Complete IndependenceIRFPAI Quality Coding Scale 6 Independent with activity with or without an assistive device 5 Patient requires set up or clean up by helper. Patient completes activity by themselves 4 Supervision or touching assist (CGA). [place] provide cues , steadying assist 3 The helper provides less than half the effort to complete the activity 2 The helper provides more than half the effort to complete the activity 1 Dependent. The helper does all the effort to complete an activity 7 Patient refused to complete or attempt activity 9 The patient did not perform the activity before the current illness or injury 88 Not attempted due to Medical conditions or safety concerns Treatments Pt performed gait training with FWW 50 ft x 2 reps with close CGA and followed by wheelchair. Pt also mobilized out of room and into bacon with wc mod indep; pt is SBA with SPT bed to from chair. Assessment Current Status: Good Progress Inproved safety with hopping and with functional transfers. PT Short Term Goals Short Term Goals Time Frame: February 13, 2017 Transfers (B,C,W/C) (FIM): 5 Gait (FIM): 1 (met) Gait Distance Comment: 30' Gait Level of Assist: 4 Gait Assistive Device: FWW Wheelchair Distance: 150'x2 PT Loading Machine Operator Goals Loading Machine Operator Goals PT Care Home Goals Time Frame: February 27, 2017 Transfers (B,C,W/C) (FIM): 6 Sit to Lying (QC): 6 Lying-Sitting on Side/Bed(QC): 6 Sit to Stand (QC): 6 Rollin Roll Left to Right (QC): 6 Chair/Juc-tf-Ohfmn Xfer(QC): 4 Car Transfer (QC): 4 Gait (FIM): 2 Distance: 50' Walk 10 feet (QC): 4 Walk 10ft-Uneven Surface(QC): 4 Walk 50ft with 2 Turns (QC): 4 Walk 150 ft (QC): 88 Gait Level of Assist: 5 Gait Assistive Device: FWW Wheelchair (FIM): 6 Distance: 150' Wheel 50 feet with 2 turns (QC: 6 PT Plan Problem List Problem List: Activity Tolerance, Functional Strength Treatment/Plan Treatment Plan: Continue Plan of Care Treatment Plan: Bed Mobility, Education, Functional Activity Miranda, Functional Strength, Group Therapy, Gait, Safety, Therapeutic Exercise, Transfers Treatment Duration: February 27, 2017 Visits Per Week: 10-11 Minutes/Day (M-F): 60-90 Minutes/Day (Sat/Maier): 15-30 Time/GCodes Time In: 730 Time Out: 753 Total Billed Treatment Time: 23 Total Billed Treatment visit GT 23 DARA GANDARA PT February 16, 2017 13:36
[2017-02-16 18:36] VITALS: BP 129/69
[2017-02-16] MEDS: FINASTERIDE (PROSCAR) 5 MG TAB PO SCH (22:19)
[2017-02-16] MEDS: ZOLPIDEM 5 MG (AMBIEN) TAB PO PRN (22:20)
[2017-02-17 05:02] LABS: BASOPHILS % (AUTO) 1 % (0-10); EOSINOPHILS # (AUTO) 0.5 10^3/uL (0.0-0.3); EOSINOPHILS % (AUTO) 9 % (0-10); LYMPHOCYTES # (AUTO) 1.8 X 10^3 (1.0-4.0); LYMPHOCYTES % (AUTO) 31 % (12-44); MEAN CORPUSCULAR HEMOGLOBIN 25 PG (25-34); MEAN CORPUSCULAR HGB CONC 30 G/DL (32-36); MEAN CORPUSCULAR VOLUME 84 FL (80-99); MEAN PLATELET VOLUME 9.2 FL (7.4-10.4); MONOCYTES # (AUTO) 0.7 X 10^3 (0.0-1.0); MONOCYTES % (AUTO) 12 % (0-12); NEUTROPHILS # (AUTO) 2.8 X 10^3 (1.8-7.8); NEUTROPHILS % (AUTO) 48 % (42-75); PLATELET COUNT 463 10^3/uL (130-400); RED BLOOD COUNT 3.38 10^6/uL (4.35-5.85); WHITE BLOOD COUNT 5.8 10^3/uL (4.3-11.0)
[2017-02-17 05:05] VITALS: BP 153/70
[2017-02-17 05:30] LABS: ALANINE AMINOTRANSFERASE 17 U/L (0-55); ALBUMIN 3.1 G/DL (3.2-4.5); ANION GAP 7 MMOL/L (5-14); ASPARTATE AMINO TRANSFERASE 13 U/L (5-34); BILIRUBIN,TOTAL 0.2 MG/DL (0.1-1.0); BLOOD UREA NITROGEN 44 MG/DL (7-18); BUN/CREATININE RATIO 39; CALCIUM 9.7 MG/DL (8.5-10.1); CARBON DIOXIDE 26 MMOL/L (21-32); CHLORIDE 110 MMOL/L (98-107); CREATININE SERUM 1.13 MG/DL (0.60-1.30); GFR ESTIMATED > 60; GLUCOSE 126 MG/DL (70-105); POTASSIUM 5.1 MMOL/L (3.6-5.0); SODIUM 143 MMOL/L (135-145); TOTAL PROTEIN 7.1 G/DL (6.4-8.2)
[2017-02-17] MEDS: IBUPROFEN 800 MG (MOTRIN) TAB PO SCH ×3 (06:18→22:53)
[2017-02-17] MEDS: inSUlin (REGULAR) HUMAN 1 UNIT/0.01 ML (CHARGE PER UNIT) SC SCH ×4 (06:33→21:27)
[2017-02-17] MEDS: CARVEDILOL 12.5 MG (COREG) TABLET PO SCH ×2 (07:54→21:02)
[2017-02-17] MEDS: AMITRIPTYLINE 25 MG (ELAVIL) TAB PO SCH ×2 (07:54→21:02)
[2017-02-17] MEDS: GABAPENTIN 300 MG (NEURONTIN) CAP PO SCH ×3 (07:54→21:02)
[2017-02-17] MEDS: ASPIRIN E.C. 325 MG (ECOTRIN) TABLET PO SCH (07:54)
[2017-02-17] MEDS: PRASUGREL 10 MG (EFFIENT) TABLET PO SCH (07:54)
[2017-02-17] MEDS: DIGOXIN 0.25 MG (LANOXIN) TAB PO SCH (07:54)
[2017-02-17] MEDS: HYDROcodone/APAP 10 MG/325 MG (LORTAB) TAB PO PRN ×2 (07:58→22:53)
[2017-02-17 18:58] VITALS: BP 161/74
[2017-02-17] MEDS: FINASTERIDE (PROSCAR) 5 MG TAB PO SCH (21:02)
[2017-02-17] MEDS: ZOLPIDEM 5 MG (AMBIEN) TAB PO PRN (22:54)
[2017-02-18 05:29] VITALS: BP 149/63
[2017-02-18] MEDS: inSUlin (REGULAR) HUMAN 1 UNIT/0.01 ML (CHARGE PER UNIT) SC SCH ×2 (06:02→11:31)
[2017-02-18] MEDS: IBUPROFEN 800 MG (MOTRIN) TAB PO SCH (06:03)
--- NOTE | 2017-02-18 08:15 | Progress Note (SOAP) ---
Subjective Subjective/Events-last exam left BKA. No infection noted. Patient does have some oozing. Diabetes. Renal insufficiency. Has resolved. Patient to be discharged today Objective Exam Vital Signs Date Time Temp Pulse Resp B/P (MAP) Pulse Ox O2 Delivery O2 Flow Rate FiO2 02/18/17 05:29 98.2 89 18 149/63 97 02/17/17 18:58 97.8 97 16 161/74 97 I & O 02/18/17 07:00 Intake Total 920 ml Output Total 450 ml Balance 470 ml Capillary Refill : General Appearance: No Apparent Distress, Thin HEENT: Normal ENT Inspection Neck: Full Range of Motion, Normal Inspection Respiratory: No Accessory Muscle Use, No Respiratory Distress Results Lab Laboratory Tests 02/17/17 21:12: Glucometer 272H 02/18/17 05:59: Glucometer 230H Assessment/Plan Assessment/Plan Assess & Plan/Chief Complaint below the knee amputation. Diabetes. . 02/07/17. BKA. Diabetes. Nonspecific vague complaints. . 02/08/17 below the knee amputation. Diabetes. Patient feeling much better today. Patient did well with physical and occupational therapy yesterday Patient a work in progress. . 02/11/17. Below the knee amputation. Diabetes Patient working hard. . 02/12/17. Low the knee amputation. Diabetes. Patient not eating good or drinking good. Hypoglycemia. Hyperkalemia. GFR increasing. To hold lisinopril. To patient to take more fluids and eat better. . BKA. 02/13/17. Diabetes. Renal insufficiency better. Hyperkalemia potassium 6.1 to receive Kayexalate. . 02/14/17. BKA. Diabetes. Renal Insufficiency. Hyperkalemia better. Patient working hard. . BKA. Diabetes. Renal insufficiency. Hyperkalemia.area . 02/18/17. BKA. Diabetes. Renal insufficiiency Patient to be discharged today Clinical Quality Measures DVT/VTE Risk/Contraindication: Risk Factor Score Per Nursin RFS Level Per Nursing on Admit: 4+=Very High TERRI TAVAREZ DO February 18, 2017 08:15
[2017-02-18] MEDS: AMITRIPTYLINE 25 MG (ELAVIL) TAB PO SCH (09:39)
[2017-02-18] MEDS: ASPIRIN E.C. 325 MG (ECOTRIN) TABLET PO SCH (09:39)
[2017-02-18] MEDS: DIGOXIN 0.25 MG (LANOXIN) TAB PO SCH (09:39)
--- NOTE | 2017-02-18 09:39 | Physical Therapy Daily Note ---
PT Daily Note-Current Subjective Agreeable to PT. Anxious to discharge home today. Pt and express that they feel ready for him to come home. Pain Numeric Pain Scale: 0-No Pain Location: No Pain Reported Transfers Functional [place] Measure 0=Not Assessed/NA 4=Minimal Assistance 1=Total Assistance 5=Supervision or Setup 2=Maximal Assistance 6=Modified [place] 3=Moderate Assistance 7=Complete IndependenceIRFPAI Quality Coding Scale 6 Independent with activity with or without an assistive device 5 Patient requires set up or clean up by helper. Patient completes activity by themselves 4 Supervision or touching assist (CGA). Artie provide cues , steadying assist 3 The helper provides less than half the effort to complete the activity 2 The helper provides more than half the effort to complete the activity 1 Dependent. The helper does all the effort to complete an activity 7 Patient refused to complete or attempt activity 9 The patient did not perform the activity before the current illness or injury 88 Not attempted due to Medical conditions or safety concerns Transfers (B, C, W/C) (FIM): 6 Roll Left to Right (QC): 6 Supine to/from Sit: 6 Sit to/from Stand: 6 Sit to Lying (QC): 6 Sit to Stand (QC): 6 Chair/Vov-qh-Pnllf Xfer(QC): 6 Bed to/from Chair: 6 Car Transfer (QC): 6 (per pt and family report for home visit yesterday) Pt is mod indep with all functional transfers with no noted LOB. Gait Training Does the Patient Walk?: Yes Gait (FIM): 5 Distance (FIM): 5=020-12 ft Distance: 50 ft--househould exception Walk 10 feet (QC): 6 Walk 50 ft with 2 Turns(QC): 6 Walk 150 ft (QC): 88 Walking 10ft/uneven surface-QC: 88 Gait Assistive Device: FWW mod indep hopping with FWW. No LOB tolerated well and safely Wheelchair Training Does the Pt Use a Wheelchair?: Yes Wheelchair (FIM): 6 Wheelchair Distance: 3=150 ft Wheelchair Level of Assist: 6 Wheel 50 ft with 2 turns (QC): 6 Wheel 150 ft (QC): 6 Type of Wheelchair: Manual Stair Training Stair Training: Handrails/: uses walker Stairs (FIM): 2 #of Steps: 1 1 Step (curb) (QC): 6 4 Steps (QC): 88 12 Steps (QC): 88 Stairs: Pattern: Hops Balance Picking up an Object (QC): 88 Treatments wheelchair mobilty, gait, stairs and functional transfers. Assessment Current Status: Excellent Progress Excellent progress towards established goals. Appears ready for discharge this date. PT Short Term Goals Short Term Goals Time Frame: February 13, 2017 Transfers (B,C,W/C) (FIM): 5 Gait (FIM): 1 (met) Gait Distance Comment: 30' Gait Level of Assist: 4 Gait Assistive Device: FWW Wheelchair Distance: 150'x2 PT Assisted Goals Technical Stenographer Goals PT Technical Stenographer Goals Time Frame: February 27, 2017 Transfers (B,C,W/C) (FIM): 6 (met) Sit to Lying (QC): 6 (met) Lying-Sitting on Side/Bed(QC): 6 (met) Sit to Stand (QC): 6 (met) Rollin (mt) Roll Left to Right (QC): 6 Chair/Hcv-ck-Vdtuq Xfer(QC): 4 Car Transfer (QC): 4 (exceeded, scored 6) Gait (FIM): 2 (exceeded; scored 5--household distance) Distance: 50' Walk 10 feet (QC): 4 (exceeded) Walk 10ft-Uneven Surface(QC): 4 (NT) Walk 50ft with 2 Turns (QC): 4 (met) Walk 150 ft (QC): 88 Gait Level of Assist: 5 Gait Assistive Device: FWW Wheelchair (FIM): 6 (met) Distance: 150' Wheel 50 feet with 2 turns (QC: 6 PT Plan Treatment/Plan Treatment Plan: Discontinue PT, goals met Treatment Plan: Bed Mobility, Education, Functional Activity Miranda, Functional Strength, Group Therapy, Gait, Safety, Therapeutic Exercise, Transfers Treatment Duration: February 27, 2017 Visits Per Week: 10-11 Minutes/Day (M-F): 60-90 Minutes/Day (Sat/Maier): 15-30 Safety Risks/Education Patient Education: Safety Issues Teaching Recipient: Patient, Family Teaching Methods: Discussion Response to Teaching: Return Demonstration Discharge Recommendations Plan Pt to discharge home with today. Time/GCodes Time In: 830 Time Out: 915 Total Billed Treatment Time: 45 Total Billed Treatment visit GT 15 FA 15 WC 15 DARA GANDARA PT February 18, 2017 09:39
[2017-02-18] MEDS: GABAPENTIN 300 MG (NEURONTIN) CAP PO SCH (09:40)
[2017-02-18] MEDS: PRASUGREL 10 MG (EFFIENT) TABLET PO SCH (09:40)
[2017-02-18] MEDS: CARVEDILOL 12.5 MG (COREG) TABLET PO SCH (09:40)
[2017-02-18] MEDS: HYDROcodone/APAP 10 MG/325 MG (LORTAB) TAB PO PRN (09:40)
[2017-02-18 11:37] VITALS: BP 133/70
--- NOTE | 2017-02-18 12:43 | Occupational Ther Daily Note ---
OT Current Status-Daily Note Subjective Pt sitting in w/c, agrees to treatment. Pt states he is ready to d/c today. left LE pain. Mental Status/Objective Functional [place] Measure 0=Not Assessed/NA 4=Minimal Assistance 1=Total Assistance 5=Supervision or Setup 2=Maximal Assistance 6=Modified [place] 3=Moderate Assistance 7=Complete [place] ADL-Treatment Pt retrieved clothing from closet with modified independence. W/c mobility to restroom without assistance. Pt doffed clothing without assistance. Transfer to shower bench with modified independence using grab bars for balance and safety. Pt able to wash/dry all areas. Stood with supervision for balance while washing buttocks. Don pullover shirt with modified independence. Pt donned underwear and pants with supervision for balance during standing for pant hike. Don right sock and shoe with supervision for balance. Pt demonstrated ability to perform toilet transfer with modified independence using grab bar for balance. Pt states he has been completing toileting without assistance. Grooming tasks completed seated at sink. Pt able to complete oral care with modified independence. Pt has no questions or concerns at this time regarding ADLs or home safety. Plan is for pt to d/c home with spouse today. Functional [place] Measure 0=Not Assessed/NA 4=Minimal Assistance 1=Total Assistance 5=Supervision or Setup 2=Maximal Assistance 6=Modified [place] 3=Moderate Assistance 7=Complete IndependenceIRFPAI Quality Coding Scale 6 Independent with activity with or without an assistive device 5 Patient requires set up or clean up by helper. Patient completes activity by themselves 4 Supervision or touching assist (CGA). [place] provide cues , steadying assist 3 The helper provides less than half the effort to complete the activity 2 The helper provides more than half the effort to complete the activity 1 Dependent. The helper does all the effort to complete an activity 7 Patient refused to complete or attempt activity 9 The patient did not perform the activity before the current illness or injury 88 Not attempted due to Medical conditions or safety concerns Eating (FIM): 6 (Pt reports feeding self, managing containers, and cutting food without assistance. ) Eating (QC): 6 Grooming (FIM): 6 Oral Hygiene (QC): 6 Bathing (FIM): 5 Shower/Bathe Self (QC): 4 (supervision) Upper Body (FIM): 6 Upper Body Dressing (QC): 6 Lower Body Dressing (FIM): 5 Lower Body Dressing (QC): 4 (supervision) On/Off Footwear (QC): 4 (SBA) Toileting (FIM): 6 Toileting Hygiene (QC): 6 Toilet/Commode Transfer (FIM): 6 Toilet Transfer (QC): 6 Shower Transfer(FIM): 6 OT Short Term Goals Short Term Goals Time Frame: February 13, 2017 Bathing(FIM): 5 Lower Body Dressing(FIM): 5 Toileting(FIM): 5 Transfers (B,C,W/C) (FIM): 5 Toilet/Commode Transfer(FIM): 5 Additional Short Term Goals: 1-Demonstrate ADL Tasks, 2-Verbalize Understanding , 3-ImproveStrength/Miranda 1=Demonstrate adherence to instructed precautions during ADL tasks. 2=Patient will verbalize/demonstrate understanding of assistive devices/ modifications for ADL. 3=Patient will improve strength/tolerance for activity to enable patient to perform ADL's. OT Electron Microscopist Goals Electron Microscopist Goals Time Frame: February 27, 2017 Eating (FIM): 6 (met 02/18/17) Eating (QC): 6 (6-MET) Groomin (met) Oral Hygiene (QC): 6 (6-MET) Bathing(FIM): 5 (met 02/18/17) Shower/Bathe Self (QC): 5 (4-not met ) Upper Body Dressing(FIM): 6 (met 02/18/17) Upper Body Dressing (QC): 6 (6-met) Lower Body Dressing(FIM): 6 (not met) Lower Body Dressing (QC): 6 (4-not met) On/Off Footwear (QC): 6 (4-not met) Toileting(FIM): 6 (met 02/18/17) Toileting Hygiene (QC): 6 (6-met) Toilet/Commode Transfer(FIM): 6 (met 02/18/17) Toilet/Commode Transfer (QC): 6 (6-met) Shower Transfer(FIM): 5 (met 02/18/17) Additional Goals: 1-Demonstrate ADL Tasks, 2-Verbalize Understanding, 3- ImproveStrength/Miranda 1=Demonstrate adherence to instructed precautions during ADL tasks. 2=Patient will verbalize/demonstrate understanding of assistive devices/ modifications for ADL. 3=Patient will improve strength/tolerance for activity to enable patient to perform ADL's. OT Education/Plan Problem List/Assessment Pt s/p left BKA with decreased mobility, ADL functioning, and strength. Pt to benefit from skilled OT intervention for ADL training, transfers, strengthening , and home safety education to maximize level of function and allow safe discharge. Discharge Recommendations Plan/Recommendations: Continue POC Treatment Plan/Plan of Care Patient would benefit from OT for education, treatment and training to promote independence in ADL's, mobility, safety and/or upper extremity function for ADL' s. Plan of Care: ADL Retraining, Functional Mobility, Group Exercise/Act as Ind, UE Funct Exercise/Act Treatment Duration: February 27, 2017 Visits Per Week: 10-12 Minutes/Day (M-F): 60-90 Minutes/Day (Sat/Maier): PRN Agreement: Yes Rehab Potential: Good Time/GCodes Start Time: 09:15 Stop Time: 10:00 Total Time Billed (hr/min): 45 Billed Treatment Time 1 visit, ADLx3(45minutes) DARIO RUCKER OT February 18, 2017 12:43
--- NOTE | 2017-02-18 13:32 | Therapy Team Discharge Summary ---
Therapy Discharge Summary Discharge Recommendations Date of Discharge February 18, 2017 at 11:37 Therapy D/C Recommendations: Home w/ Family Support Occupational Therapy Pt admitted to ARU following left BKA. On admission pt required minimal assistance for toilet transfer, bathing, and LE dressing, and SBA for UE ADLs. Skilled OT intervention focused on ADL training, transfers, strengthening, and home safety education. Pt made good progress with therapy and by discharge is completing transfers and UE ADLs with modified independence and LE dressing and bathing with supervision. Pt met all OT LTG except LE dressing. Pt to discharge home this date with spouse to assist as needed. D/C ARU OT at this time. PT Eye Dropper Assembler Goals Usp Goals PT Eye Dropper Assembler Goals Time Frame: February 27, 2017 Transfers (B,C,W/C) (FIM): 6 (met) Roll Left to Right (QC): 6 Sit to Lying (QC): 6 (met) Lying-Sitting on Side/Bed(QC): 6 (met) Sit to Stand (QC): 6 (met) Chair/Zjk-ok-Nvhdl Xfer(QC): 4 Car Transfer (QC): 4 (exceeded, scored 6) Gait (FIM): 2 (exceeded; scored 5--household distance) Distance: 50' Walk 10 feet (QC): 4 (exceeded) Walk 10ft-Uneven Surface(QC): 4 (NT) Walk 50ft with 2 Turns (QC): 4 (met) Walk 150 ft (QC): 88 Gait Level of Assist: 5 Gait Assistive Device: FWW Wheelchair (FIM): 6 (met) Distance: 150' Wheel 50 feet with 2 turns (QC: 6 OT Usp Goals Eye Dropper Assembler Goals Time Frame: February 27, 2017 Eating (FIM): 6 (met 02/18/17) Eating (QC): 6 (6-MET) Oral Hygiene (QC): 6 (6-MET) Grooming(FIM): 6 (met) Bathing(FIM): 5 (met 02/18/17) Shower/Bathe Self (QC): 5 (4-not met ) Upper Body Dressing(FIM): 6 (met 02/18/17) Upper Body Dressing (QC): 6 (6-met) Lower Body Dressing(FIM): 6 (not met) Lower Body Dressing (QC): 6 (4-not met) On/Off Footwear (QC): 6 (4-not met) Toileting(FIM): 6 (met 02/18/17) Toileting Hygiene (QC): 6 (6-met) Toilet/Commode Transfer(FIM): 6 (met 02/18/17) Toilet/Commode Transfer (QC): 6 (6-met) Shower Transfer(FIM): 5 (met 02/18/17) Additional Goals: 1-Demonstrate ADL Tasks, 2-Verbalize Understanding, 3- ImproveStrength/Miranda 1=Demonstrate adherence to instructed precautions during ADL tasks. 2=Patient will verbalize/demonstrate understanding of assistive devices/ modifications for ADL. 3=Patient will improve strength/tolerance for activity to enable patient to perform ADL's. DARIO RUCKER OT February 18, 2017 13:32
--- NOTE | 2017-02-18 16:06 | Therapy Team Discharge Summary ---
Therapy Discharge Summary Discharge Recommendations Date of Discharge February 18, 2017 at 11:37 Therapy D/C Recommendations: Home w/ Family Support Physical Therapy This patient has been seen by skilled PT post left BKA for functional mobility training and strengthening. Upon admission, he required min assist with transfers, hopped 20 ft with min assist with FWW was min assist with wheelchair mobility and was unable to attempt a step. His treatment has consisted of functional strength and mobility and he has made good functional progress. He is mod indep with transfers, hops 50 ft with FWW mod indep (household level); uses a wheelchair mod indep, recommend wc for primary use due to fall risk with ambulation at this time; and he is able to hop up/down a curb step with CGA. He is discharging home with his spouse and all PT goals have been met. Recommend [facility] PT for follow up progression of functional mobility and training. DC PT. PT Prison Goals Plater Helper Goals PT Plater Helper Goals Time Frame: February 27, 2017 Transfers (B,C,W/C) (FIM): 6 (met) Roll Left to Right (QC): 6 (met) Sit to Lying (QC): 6 (met) Lying-Sitting on Side/Bed(QC): 6 (met) Sit to Stand (QC): 6 (met) Chair/Jxz-xa-Rukxx Xfer(QC): 4 (exceeded) Car Transfer (QC): 4 (exceeded, scored 6) Gait (FIM): 2 (exceeded; scored 5--household distance) Distance: 50' Walk 10 feet (QC): 4 (exceeded) Walk 10ft-Uneven Surface(QC): 4 (NT) Walk 50ft with 2 Turns (QC): 4 (met) Walk 150 ft (QC): 88 Gait Level of Assist: 5 Gait Assistive Device: FWW Wheelchair (FIM): 6 (met) Distance: 150' Wheel 50 feet with 2 turns (QC: 6 (met) OT Plater Helper Goals Prison Goals Time Frame: February 27, 2017 Eating (FIM): 6 (met 02/18/17) Eating (QC): 6 (6-MET) Oral Hygiene (QC): 6 (6-MET) Grooming(FIM): 6 (met) Bathing(FIM): 5 (met 02/18/17) Shower/Bathe Self (QC): 5 (4-not met ) Upper Body Dressing(FIM): 6 (met 02/18/17) Upper Body Dressing (QC): 6 (6-met) Lower Body Dressing(FIM): 6 (not met) Lower Body Dressing (QC): 6 (4-not met) On/Off Footwear (QC): 6 (4-not met) Toileting(FIM): 6 (met 02/18/17) Toileting Hygiene (QC): 6 (6-met) Toilet/Commode Transfer(FIM): 6 (met 02/18/17) Toilet/Commode Transfer (QC): 6 (6-met) Shower Transfer(FIM): 5 (met 02/18/17) Additional Goals: 1-Demonstrate ADL Tasks, 2-Verbalize Understanding, 3- ImproveStrength/Miranda 1=Demonstrate adherence to instructed precautions during ADL tasks. 2=Patient will verbalize/demonstrate understanding of assistive devices/ modifications for ADL. 3=Patient will improve strength/tolerance for activity to enable patient to perform ADL's. DARA GANDARA PT February 18, 2017 16:06
--- NOTE | 2017-02-18 18:37 | PM & R (SOAP) Progress Note ---
Subjective Subjective/Events-last exam Patient discharged to home with C and family today Current meds and labs and therapy notes reviewed. Objective Exam Last Set of Vital Signs Vital Signs Date Time Temp Pulse Resp B/P (MAP) Pulse Ox O2 Delivery O2 Flow Rate FiO2 02/18/17 11:37 77 18 133/70 97 02/18/17 05:29 98.2 02/14/17 05:00 Room Air Capillary Refill : I&O Intake and Output 02/17/17 23:59 Intake Total 920 ml Output Total 1100 ml Balance -180 ml Intake Oral 920 ml Output Urine Total 1100 ml General: Alert, No Acute Distress HEENT: Atraumatic, PERRLA, EOMI, Mucous Memb Moist/[place] Neck: Supple, No JVD Lungs: Normal Air Movement Heart: Regular Rate Abdomen: Normal Bowel Sounds, Soft, No Tenderness Extremities: Other (Left BKA wrapped with mild tenderness) Skin: Other (Left below-knee amputation site is healed.) Neuro: Other (generalized weakness has active movement left knee) Results Lab Laboratory Tests 02/15/17 20:38: Glucometer 240H 02/16/17 04:34: Glucometer 158H 02/16/17 11:00: Glucometer 391H 02/16/17 16:05: Glucometer 174H 02/16/17 20:37: Glucometer 392H 02/17/17 04:51: White Blood Count 5.8, Red Blood Count 3.38L, Hemoglobin 8.6L, Hematocrit 28L, Mean Corpuscular Volume 84, Mean Corpuscular Hemoglobin 25, Mean Corpuscular Hemoglobin Concent 30L, Red Cell Distribution Width 16.0H, Platelet Count 463H, Mean Platelet Volume 9.2, Neutrophils (%) (Auto) 48, Lymphocytes (%) (Auto) 31, Monocytes (%) (Auto) 12, Eosinophils (%) (Auto) 9, Basophils (%) (Auto) 1, Neutrophils # (Auto) 2.8, Lymphocytes # (Auto) 1.8, Monocytes # (Auto) 0.7, Eosinophils # (Auto) 0.5H, Basophils # (Auto) 0.0, Sodium Level 143, Potassium Level 5.1H, Chloride Level 110H, Carbon Dioxide Level 26, Anion Gap 7, Blood Urea Nitrogen 44H, Creatinine 1.13, Estimat Glomerular Filtration Rate > 60, BUN /Creatinine Ratio 39, Glucose Level 126H, Calcium Level 9.7, Total Bilirubin 0.2 , Aspartate Amino Transf (AST/SGOT) 13, Alanine Aminotransferase (ALT/SGPT) 17, Alkaline Phosphatase 90, Total Protein 7.1, Albumin 3.1L 02/17/17 06:30: Glucometer 153H 02/17/17 21:12: Glucometer 272H 02/18/17 05:59: Glucometer 230H 02/18/17 11:04: Glucometer 216H Assessment/Plan Assessment S/P LBKA OSH DR Salgado secondary to cellulitis left foot IDDM Postop anemia Hyperkalemia improved s/p dose of Kayexelate Plan Discharge today as per above F/U with PCP in [place] and Surgeon in [place] See orders JOHNIE RANDALL MD February 18, 2017 18:37
== END 2017-02-18 11:37 | disposition home health service (06) | DRG 561 ==
LOC: ENPENDDIS 02-18 12:00
PROVIDERS: ADMIT Physical Medicine & Rehabilitation; ATTEND Physical Medicine & Rehabilitation
DX: Z47.81 Encounter for orthopedic aftercare following surgical amputation (principal); Z89.512 Acquired absence of left leg below knee; G54.6 Phantom limb syndrome with pain; E11.9 Type 2 diabetes mellitus without complications; D64.9 Anemia, unspecified; G47.00 Insomnia, unspecified; I25.10 Atherosclerotic heart disease of native coronary artery without angina pectoris; G47.30 Sleep apnea, unspecified; I10 Essential (primary) hypertension; Z79.4 Long term (current) use of insulin; Z79.84 Long term (current) use of oral hypoglycemic drugs; Z87.891 Personal history of nicotine dependence
CPT/HCPCS: 36415; 80048; 80053; 82274; 82962; 85025; 85027

== ENCOUNTER 2017-02-19 09:06 | Emergency (ER) | payer MEDICARE ==
[~2017-02-19] VITALS: Ht 175.3 cm; Wt 77.6 kg
[~2017-02-19 09:06] MED LIST changes: +Finasteride PO; +IBUP-1780 PO; +METF500T4 PO
--- NOTE | 2017-02-19 09:34 | ED Lower Extremity ---
General Stated Complaint: FALL,BLEEDING LEFT LEG Source: patient History of Present Illness Time seen by provider: 09:10 Initial Comments PT ARRIVES VIA POV FROM HOME PT WAS ADMITTED HERE -01/29/17 FOR GANGRENE AND INFECTION OF LEFT FOOT DUE TO SEVERE PVD WAS TRANSFERRED TO [facility] AND HAD LEFT BKA BY DR. ALATORRE WAS TRANSFERRED BACK HERE 02/05-02/18/17 FOR REHAB ( JUST DISMISSED YESTERDAY ) AT 0600 THIS AM, HE FELL OUT OF BED. LANDING ON LEFT STUMP AND HAS HAD BLEEDING FROM THE AREA SINCE THEN HAS NOT CHANGED THE SURGICAL DRESSING OR ROSAMARIA WRAP, AND IT IS SATURATED NO PAIN TO AREA PT / DO NOT WANT ANYTHING DONE HERE, JUST WANT TO GO SEE DR. ALATORRE IN [place] AND WILL GO BY PRIVATE VEHICLE PCP IN [place] SOFTWARE LEAD: DR. SIMMS AT [facility] CV SURGEON: DR. ALATORRE, AT [facility] Allergies and Home Medications Allergies Coded Allergies: Sulfa (Sulfonamide Antibiotics) (Verified Allergy, Severe, HIVES, 02/05/17) temazepam (Verified Allergy, Severe, 02/05/17) MENTAL CONFUSION pravastatin (Verified Adverse Reaction, Severe, RASH, 02/05/17) clopidogrel (Verified Adverse Reaction, Unknown, 02/05/17) Home Medications Amitriptyline HCl 25 Mg Tablet, 25 MG PO BID, (Reported) Aspirin 325 Mg Tablet, 325 MG PO DAILY, (Reported) Carvedilol 25 Mg Tablet, 25 MG PO BID, (Reported) Digoxin 250 Mcg Tablet, 250 MCG PO HS, (Reported) Glipizide 5 Mg Tablet, 5 MG PO BID for 10 Days Prescribed by: TESSA FLORES on 01/29/17 0952 Hydrocodone/Acetaminophen 1 Each Tablet, 1 EA PO Q4H PRN for PAIN-MODERATE for 14 Days, #60 Prescribed by: JOHNIE RANDALL on 02/16/17 0819 Ibuprofen 800 Mg Tablet, 600 MG PO Q8HR for 30 Days, #60 Prescribed by: JOHNIE RANDALL on 02/16/17 0819 Insulin Determir 1,000 Units/10 Ml Soln, 8 UNIT SQ HS for 10 Days Prescribed by: TESSA FLORES on 01/29/17 0952 Metformin HCl 500 Mg Tablet, 1,000 MG PO BID@ for 30 Days, #60 Prescribed by: JOHNIE RANDALL on 02/16/17818 Methyl-B12/l-Mefolate/B6 Phos 1 Each Tablet, 1 TAB PO TID, (Reported) Prasugrel HCl 10 Mg Tablet, 10 MG PO DAILY, (Reported) [Finasteride] 5 MG TAB, 5 MG PO HS for 30 Days, #30 Prescribed by: JOHNIE RANDALL on 02/16/17818 Constitutional: no symptoms reported Musculoskeletal: see HPI Skin: see HPI Psychiatric/Neurological: No Symptoms Reported Past Kgmlkil-Xptbot-Ejnfxd Hx Patient Social History Type Used: Cigars Former Smoker/When Quit: Dec 29, 1979 Recent Foreign Travel: No Contact w/Someone Who Travel: No Recent Hopitalizations: Yes (Left A- [place]) Seasonal Allergies Seasonal Allergies: No Surgeries HX Surgeries: Yes (TOE AMPUTATION, WOUND DEBRIDEMENTS; LEFT BKA 01/2017 AT [facility]; REVASCULARIZATION PROCEDURES) Surgeries: Amputation, Orthopedic, Prostatectomy, Vascular Surgery Respiratory Hx Respiratory Disorders: Yes Respiratory Disorders: Sleep Apnea Cardiovascular Hx Cardiac Disorders: Yes Cardiac Disorders: Coronary Artery Disease, High Cholesterol, Hypertension, Peripheral Vascular Neurological Hx Neurological Disorders: Yes Neurological Disorders: Neuropathy Reproductive System Sexually Transmitted Disease: No HIV/AIDS: No Genitourinary Hx Genitourinary Disorders: Yes Genitourinary Disorders: Prostate Problems Gastrointestinal Hx Gastrointestinal Disorders: No Musculoskeletal Hx Musculoskeletal Disorders: Yes Musculoskeletal Disorders: Chronic Back Pain Endocrine Hx Endocrine Disorders: Yes Endocrine Disorders: Diabetes, Insulin dep HEENT HX ENT Disorders: Yes HEENT Disorders: Cataract Loss of Vision: Denies Hearing Impairment: Denies Cancer Hx Cancer: No Psychosocial Hx Psychiatric Problems: Yes Behavioral Health Disorders: Anxiety, Depression Integumentary HX Skin/Integumentary Disorder: Yes (GANGRENE AND INFECTION IN LEFT FOOT) Blood Transfusions Adverse Reaction to a Blood Tr: No Family Medical History Family Medial History: Abdominal aortic aneurysm G8 SISTER Alcoholism G8 BROTHER G8 BROTHER G8 BROTHER Arthritis G8 BROTHER G8 BROTHER G8 BROTHER G8 BROTHER G8 BROTHER G8 SISTER G8 SISTER Cardiovascular disease G8 SISTER Diabetes mellitus G8 BROTHER G8 BROTHER G8 BROTHER G8 SISTER G8 SISTER Drug abuse G8 BROTHER G8 BROTHER Headache disorder G8 BROTHER G8 BROTHER G8 BROTHER G8 BROTHER G8 BROTHER G8 BROTHER G8 BROTHER G8 BROTHER G8 SISTER G8 SISTER G8 SISTER G8 SISTER Hypercholesterolemia G8 BROTHER G8 BROTHER G8 BROTHER G8 BROTHER G8 BROTHER G8 SISTER G8 SISTER G8 SISTER G8 SISTER Hypertension G8 BROTHER G8 BROTHER G8 BROTHER G8 BROTHER G8 BROTHER G8 BROTHER G8 BROTHER G8 BROTHER G8 SISTER G8 SISTER G8 SISTER G8 SISTER Thyroid disease Tuberculosis 19 FATHER Physical Exam Vital Signs Capillary Refill : General Appearance: WD/WN, no apparent distress Legs: left leg other (LEFT STUMP--DRESSINGS AND ROSAMARIA WRAP COMPLETELY SATURATED WITH BLOOD. WOUND HAS STERI STRIPS IN PLACE, BUT HAS PROFUSE ACTIVE BLEEDING FROM WOUND--MOST OF WOUND APPEARS TO BE DEHISCED) Neurologic/Psychiatric: alert, normal mood/affect Skin: normal color, warm/dry, other ( ABOVE) Suture Removal/Wound Recheck : Suture Removal/Wound Recheck: Dry/sterile dressing-appl Departure Communication Progress Notes 0970--CALLED [facility] DIRECT CALL, SPOKE WITH DR. ALATORRE, ACCEPTS PT FOR DIRECT ADMIT. PT WILL GO TO ADMIT/DISCHARGE LOUNGE. Impression Impression: Primary Impression: WOUND DEHISCENCE LEFT LEG STUMP Additional Impression: Status post below knee amputation of left lower extremity Disposition: XFER SHT-TRM HOSP Condition: Stable Departure-Patient Inst. Referrals: BEAU CHANG DO (PCP/Family) Primary Care Physician EDDY MIRELES DO February 19, 2017 09:34
[2017-02-19 09:55] VITALS: BP 162/90
== END 2017-02-19 09:55 | disposition short-term general hospital (02) ==
LOC: EDUNIT# 09:06 → ER 09:09
DX: T81.31XA Disruption of external operation (surgical) wound, not elsewhere classified, initial encounter (principal); E11.9 Type 2 diabetes mellitus without complications; I10 Essential (primary) hypertension; I25.10 Atherosclerotic heart disease of native coronary artery without angina pectoris; Z79.82 Long term (current) use of aspirin; Z79.4 Long term (current) use of insulin; Z79.84 Long term (current) use of oral hypoglycemic drugs; Z79.899 Other long term (current) drug therapy; Z89.512 Acquired absence of left leg below knee
CPT/HCPCS: 99281

== ENCOUNTER 2017-02-28 03:27 | Emergency (ER) | payer MEDICARE ==
[~2017-02-28] VITALS: Ht 175.3 cm; Wt 61.2 kg
--- NOTE | 2017-02-28 03:54 | ED Lower Extremity ---
General Chief Complaint: Trauma-Non Activation Stated Complaint: FALL,LEFT LEG INJURY Nursing Triage Note: PT TO ER WITH C/O FALL AT HOME. HE FELL OUT OF W/C ONTO LEFT BKA. REPORTS HIS FSBS WAS 56 AT HOME. HE DRANK ORANGE JUICE ET ATE SOME CANDY. C/O BLEEDING AT SURGICAL SITE ON LEFT LEG. HE HAD SURGERY 10 DAYS AGO AT [facility]. HE IS SEEING DR SANCHEZ FOR WOUND CARE. Nursing Sepsis Screen: No Definite Risk Source: patient History of Present Illness Time seen by provider: 03:40 Initial Comments PT ARRIVES VIA POV FROM HOME PT RECENTLY HAD A LEFT BKA AT [facility], THEN ADMITTED HERE FOR REHAB FROM 02/05- 02/18/17 PT FELL ON 02/19 AND HAD DEHISCENCE OF WOUND AND TRANSFERRED BACK TO [facility], WHERE HE HAD A DEBRIDEMENT AND WOUND REVISION BY DR. ALATORRE, AND WAS HOSPITALIZED FOR 7 DAYS PT IS TO HAVE HYPERBARIC TREATMENT THIS AM BY DR. SANCHEZ IN [facility]ARE [facility] PT STATES TONIGHT, HE WOKE UP SWEATY AND BLOOD SUGAR WAS LOW-56, SO HE DRANK OJ AND ATE CANDY WENT TO BATHROOM TO GET A TOWEL, THEN SAW A SPIDER AND HE WAS GETTING OUT OF HIS WHEELCHAIR TO STOMP ON IT AND HE FELL OUT OF THE WHEELCHAIR AND LANDED ON HIS STUMP, AND HAS HAD BLEEDING ONTO THE DRESSING ON STUMP--HAVE NOT REMOVED THE DRESSING, OR REINFORCED THE DRESSING--JUST CAME STRAIGHT HERE OCCURRED AT 0300 THIS AM PT DENIES ANY OTHER INJURIES NO SIGNIFICANT PAIN TO AREA Allergies and Home Medications Allergies Coded Allergies: Sulfa (Sulfonamide Antibiotics) (Verified Allergy, Severe, HIVES, 02/05/17) temazepam (Verified Allergy, Severe, 02/05/17) MENTAL CONFUSION pravastatin (Verified Adverse Reaction, Severe, RASH, 02/05/17) clopidogrel (Verified Adverse Reaction, Unknown, 02/05/17) Home Medications Amitriptyline HCl 25 Mg Tablet, 25 MG PO BID, (Reported) Aspirin 325 Mg Tablet, 325 MG PO DAILY, (Reported) Carvedilol 25 Mg Tablet, 25 MG PO BID, (Reported) Digoxin 250 Mcg Tablet, 250 MCG PO HS, (Reported) Glipizide 5 Mg Tablet, 5 MG PO BID for 10 Days Prescribed by: TESSA FLORES on 01/29/17 0952 Hydrocodone/Acetaminophen 1 Each Tablet, 1 EA PO Q4H PRN for PAIN-MODERATE for 14 Days, #60 Prescribed by: JOHNIE RANDALL on 02/16/17818 Ibuprofen 800 Mg Tablet, 600 MG PO Q8HR for 30 Days, #60 Prescribed by: JOHNIE RANDALL on 02/16/17818 Insulin Determir 1,000 Units/10 Ml Soln, 8 UNIT SQ HS for 10 Days Prescribed by: TESSA FLORES on 01/29/17951 Metformin HCl 500 Mg Tablet, 1,000 MG PO BID@ for 30 Days, #60 Prescribed by: JOHNIE RANDALL on 02/16/17818 Methyl-B12/l-Mefolate/B6 Phos 1 Each Tablet, 1 TAB PO TID, (Reported) Prasugrel HCl 10 Mg Tablet, 10 MG PO DAILY, (Reported) [Finasteride] 5 MG TAB, 5 MG PO HS for 30 Days, #30 Prescribed by: JOHNIE RANDALL on 02/16/17818 Constitutional: no symptoms reported Musculoskeletal: see HPI Skin: see HPI Psychiatric/Neurological: No Symptoms Reported Past Mnzzjho-Wzdred-Pquhjm Hx Patient Social History Alcohol Use: Denies Use Recreational Drug Use: Yes (Hx in ) Smoking Status: Former Smoker Type Used: Cigars Former Smoker/When Quit: Dec 29, 1979 Recent Foreign Travel: No Contact w/Someone Who Travel: No Recent Infectious Disease Expo: No Recent Hopitalizations: Yes (Left A- [place]) Seasonal Allergies Seasonal Allergies: No Surgeries HX Surgeries: Yes (TOE AMPUTATIONS, MULTIPLE REVASCULARIZATION PROCEDURES ON LEGS, MULTIPLE DEBRIDEMENTS; LEFT BKA 01/2017 AT [facility], WOUND REVISION/STUMP 02/19/17) Surgeries: Amputation, Orthopedic, Prostatectomy, Vascular Surgery Respiratory Hx Respiratory Disorders: Yes Respiratory Disorders: Sleep Apnea Cardiovascular Hx Cardiac Disorders: Yes Cardiac Disorders: Coronary Artery Disease, High Cholesterol, Hypertension, Peripheral Vascular Neurological Hx Neurological Disorders: Yes Neurological Disorders: Neuropathy Reproductive System Sexually Transmitted Disease: No HIV/AIDS: No Genitourinary Hx Genitourinary Disorders: Yes Genitourinary Disorders: Prostate Problems Gastrointestinal Hx Gastrointestinal Disorders: No Musculoskeletal Hx Musculoskeletal Disorders: Yes Musculoskeletal Disorders: Chronic Back Pain Endocrine Hx Endocrine Disorders: Yes Endocrine Disorders: Diabetes, Insulin dep HEENT HX ENT Disorders: Yes HEENT Disorders: Cataract Loss of Vision: Denies Hearing Impairment: Denies Cancer Hx Cancer: No Psychosocial Hx Psychiatric Problems: Yes Behavioral Health Disorders: Anxiety, Depression Integumentary HX Skin/Integumentary Disorder: Yes (GANGRENE AND INFECTION IN LEFT FOOT) Skin/Integumentary Disorders: Recent Skin Changes Blood Transfusions Adverse Reaction to a Blood Tr: No Family Medical History Family Medial History: Abdominal aortic aneurysm G8 SISTER Alcoholism G8 BROTHER G8 BROTHER G8 BROTHER Arthritis G8 BROTHER G8 BROTHER G8 BROTHER G8 BROTHER G8 BROTHER G8 SISTER G8 SISTER Cardiovascular disease G8 SISTER Diabetes mellitus G8 BROTHER G8 BROTHER G8 BROTHER G8 SISTER G8 SISTER Drug abuse G8 BROTHER G8 BROTHER Headache disorder G8 BROTHER G8 BROTHER G8 BROTHER G8 BROTHER G8 BROTHER G8 BROTHER G8 BROTHER G8 BROTHER G8 SISTER G8 SISTER G8 SISTER G8 SISTER Hypercholesterolemia G8 BROTHER G8 BROTHER G8 BROTHER G8 BROTHER G8 BROTHER G8 SISTER G8 SISTER G8 SISTER G8 SISTER Hypertension G8 BROTHER G8 BROTHER G8 BROTHER G8 BROTHER G8 BROTHER G8 BROTHER G8 BROTHER G8 BROTHER G8 SISTER G8 SISTER G8 SISTER G8 SISTER Thyroid disease Tuberculosis 19 FATHER Physical Exam Vital Signs Vital Sign - Last 12Hours 02/28/17 03:33 Temp 97.4 Pulse 89 Resp 18 B/P (MAP) 193/80 Capillary Refill : Less Than 3 Seconds General Appearance: WD/WN, no apparent distress Knees: left knee other (LEFT BKA STUMP WITH MODERATE AMOUNT OF BRIGHT RED BLOOD ON DRESSING. DRESSING REMOVED AND DOES NOT HAVE SIGNIFICANT BLEEDING-- ONLY SLIGHT OOZING AT CORNERS OF WOUND ( PT STATES THIS IS NOT NEW, HAS BEEN DOING THAT SINCE SURGERY) THE WOUND APPEARS TO BE LOOSELY APPROXIMATED WITH AT LEAST 2 SUTURES, AND PT / REPORT THAT WOUND IS NOT GAPING--LOOKS ESSENTIALLY THE SAME IT HAS LOOKED. ) Suture Removal/Wound Recheck : Suture Removal/Wound Recheck: Dry/sterile dressing-appl Progress/Results/Core Measures Results/Orders Lab Results Laboratory Tests Test 02/28/17 03:34 Range/Units Glucometer 146 H 70-110 MG/DL My Orders Orders - EDDY MIRELES DO Knee, Left, 3 Views (02/28/17 03:48) Vital Signs/I&O Vital Sign - Last 12Hours 02/28/17 03:33 Temp 97.4 Pulse 89 Resp 18 B/P (MAP) 193/80 Blood Pressure Mean: 117 Point of Care Testing Finger Stick Blood Glucose: 146 Blood Glucose Action Taken: RN AND DR NOTIFIED Diagnostic Imaging Comments XRAYS RIGHT KNEE--NO ACUTE BONY INJURY, PENDING RADIOLOGIST REVIEW Reviewed: Reviewed by Me Departure Impression Impression: Primary Impression: CONTUSION LEFT BKA STUMP Additional Impressions: S/P FALL FROM WHEELCHAIR RECENT WOUND DEHISCENCE AND WOUND REVISION Disposition: HOME, SELF-CARE Condition: Stable Departure-Patient Inst. Referrals: BEAU CHANG DO (PCP/Family) Primary Care Physician Patient Instructions: Contusion (DC), Preventing Falls in the Older Adult EDDY MIRELES DO February 28, 2017 03:54
[2017-02-28 04:23] VITALS: BP 175/71
--- NOTE | 2017-02-28 06:52 | Diagnostic Imaging Report ---
INDICATION: Fall, recent amputation. FINDINGS: The residual osseous structures revealed no fracture. Vascular stent and vascular clips are noted. There is a trace amount of air within the postoperative soft tissues at the level of the stump. No pathological foreign body. IMPRESSION: Postoperative changes, but no acute posttraumatic sequelae identified. Dictated by: Dictated on workstation # [id number]
== END 2017-02-28 04:23 | disposition home or self-care (01) ==
LOC: EDUNIT# 03:27 → ER 03:30
DX: S80.12XA Contusion of left lower leg, initial encounter (principal); I10 Essential (primary) hypertension; E11.9 Type 2 diabetes mellitus without complications; I25.10 Atherosclerotic heart disease of native coronary artery without angina pectoris; Z79.82 Long term (current) use of aspirin; Z79.4 Long term (current) use of insulin; Z79.84 Long term (current) use of oral hypoglycemic drugs; Z79.899 Other long term (current) drug therapy; Z87.891 Personal history of nicotine dependence; Z89.512 Acquired absence of left leg below knee; W05.0XXA Fall from non-moving wheelchair, initial encounter; Y92.012 Bathroom of single-family (private) house as the place of occurrence of the external cause; Y99.8 Other external cause status
CPT/HCPCS: 73562; 82962

== ENCOUNTER 2017-03-29 10:50 | Outpatient (RCR) | payer MEDICARE ==
--- NOTE | 2017-03-06 11:23 | Diagnostic Imaging Report ---
INDICATION: PICC line placement. EXAMINATION: Portable chest at 11:13 AM. FINDINGS: The left upper extremity PICC line tip projects over the SVC. There is some discoid atelectasis at the right lung base. The lungs are otherwise clear. There is no effusion or pneumothorax. IMPRESSION: The PICC line tip projects over the SVC. Dictated by: Dictated on workstation # [id number]
[2017-03-06] MEDS: CEFEPIME 2 GM/NS 50 ML IVPB IV SCH ×2 (11:36)
[2017-03-06] MEDS: CATHETER FLUSH 10 ML SYR IV PRN (11:39)
[2017-03-06 11:49] VITALS: BP 191/84
[2017-03-07] MEDS: CEFEPIME 2 GM/NS 50 ML IVPB IV SCH ×2 (10:48)
[2017-03-07] MEDS: CATHETER FLUSH 10 ML SYR IV PRN ×2 (10:49→11:20)
[2017-03-07 11:04] VITALS: BP 191/84
[2017-03-08] MEDS: CEFEPIME 2 GM/NS 50 ML IVPB IV SCH ×2 (10:15)
[2017-03-08] MEDS: CATHETER FLUSH 10 ML SYR IV PRN (10:15)
[2017-03-08 11:00] VITALS: BP 167/72
[2017-03-09 10:30] VITALS: BP 160/90
[2017-03-09] MEDS: CATHETER FLUSH 10 ML SYR IV PRN (10:43)
[2017-03-09] MEDS: CEFEPIME 2 GM/NS 50 ML IVPB IV SCH ×2 (10:53)
[2017-03-10 09:15] VITALS: BP 158/84
[2017-03-10] MEDS: CEFEPIME 2 GM/NS 50 ML IVPB IV SCH ×2 (09:20)
[2017-03-10] MEDS: CATHETER FLUSH 10 ML SYR IV PRN (09:21)
[2017-03-11] MEDS: CEFEPIME 2 GM/NS 50 ML IVPB IV SCH ×2 (11:55)
[2017-03-11] MEDS: CATHETER FLUSH 10 ML SYR IV PRN ×2 (11:56→12:28)
[2017-03-11 11:59] VITALS: BP 175/83
[2017-03-12] MEDS: CEFEPIME 2 GM/NS 50 ML IVPB IV SCH ×2 (11:16)
[2017-03-12 11:47] VITALS: BP 144/73
[2017-03-13 10:47] VITALS: BP 144/71
[2017-03-13] MEDS: CATHETER FLUSH 10 ML SYR IV PRN ×2 (11:00→11:30)
[2017-03-13] MEDS: CEFEPIME 2 GM/NS 50 ML IVPB IV SCH ×2 (11:01)
[2017-03-14] MEDS: CEFEPIME 2 GM/NS 50 ML IVPB IV SCH ×2 (10:09)
[2017-03-14 10:44] VITALS: BP 156/86
[2017-03-15] MEDS: CATHETER FLUSH 10 ML SYR IV PRN (11:00)
[2017-03-15] MEDS: CEFEPIME 2 GM/NS 50 ML IVPB IV SCH ×2 (11:00)
[2017-03-15 11:33] VITALS: BP 127/63
[2017-03-16 09:05] VITALS: BP 162/72
[2017-03-16] MEDS: CATHETER FLUSH 10 ML SYR IV PRN ×3 (09:05→10:00)
[2017-03-17 09:15] VITALS: BP 169/74
[2017-03-17] MEDS: CATHETER FLUSH 10 ML SYR IV PRN ×2 (09:20→09:45)
[2017-03-17] MEDS: CEFEPIME 2 GM/NS 50 ML IVPB IV SCH ×2 (09:20)
[2017-03-18] MEDS: CEFEPIME 2 GM/NS 50 ML IVPB IV SCH ×2 (11:58)
[2017-03-18] MEDS: CATHETER FLUSH 10 ML SYR IV PRN ×2 (11:58→12:29)
[2017-03-18 12:03] VITALS: BP 160/71
[2017-03-19] MEDS: CEFEPIME 2 GM/NS 50 ML IVPB IV SCH ×2 (11:05)
[2017-03-19 11:13] VITALS: BP 160/71
[2017-03-19] MEDS: CATHETER FLUSH 10 ML SYR IV PRN (11:13)
[2017-03-20] MEDS: CEFEPIME 2 GM/NS 50 ML IVPB IV SCH ×2 (08:45)
[2017-03-20] MEDS: CATHETER FLUSH 10 ML SYR IV PRN ×2 (08:46→09:14)
[2017-03-20 09:15] VITALS: BP 173/72
[2017-03-21] MEDS: CEFEPIME 2 GM/NS 50 ML IVPB IV SCH ×2 (10:35)
[2017-03-21 11:18] VITALS: BP 153/66
[2017-03-22] MEDS: CEFEPIME 2 GM/NS 50 ML IVPB IV SCH ×2 (11:13)
[2017-03-22] MEDS: CATHETER FLUSH 10 ML SYR IV PRN ×2 (11:13→11:40)
[2017-03-22 11:40] VITALS: BP 145/64
[2017-03-23] MEDS: CATHETER FLUSH 10 ML SYR IV PRN ×2 (09:09→09:35)
[2017-03-23] MEDS: CEFEPIME 2 GM/NS 50 ML IVPB IV SCH ×2 (09:10)
[2017-03-23 09:57] VITALS: BP 168/77
[2017-03-24] MEDS: CATHETER FLUSH 10 ML SYR IV PRN ×2 (08:09→08:35)
[2017-03-24] MEDS: CEFEPIME 2 GM/NS 50 ML IVPB IV SCH ×2 (08:10)
[2017-03-24 08:57] VITALS: BP 178/89
[2017-03-25] MEDS: CATHETER FLUSH 10 ML SYR IV PRN ×2 (11:11→11:40)
[2017-03-25] MEDS: CEFEPIME 2 GM/NS 50 ML IVPB IV SCH ×2 (11:12)
[2017-03-25 11:45] VITALS: BP 135/65
[2017-03-26] MEDS: CATHETER FLUSH 10 ML SYR IV PRN ×2 (11:00→11:26)
[2017-03-26] MEDS: CEFEPIME 2 GM/NS 50 ML IVPB IV SCH ×2 (11:00)
[2017-03-26 11:50] VITALS: BP 151/81
[2017-03-27] MEDS: CATHETER FLUSH 10 ML SYR IV PRN ×2 (11:02→11:36)
[2017-03-27] MEDS: CEFEPIME 2 GM/NS 50 ML IVPB IV SCH ×2 (11:03)
[2017-03-27 12:25] VITALS: BP 136/76
[2017-03-28] MEDS: CEFEPIME 2 GM/NS 50 ML IVPB IV SCH ×2 (10:42)
[2017-03-28] MEDS: CATHETER FLUSH 10 ML SYR IV PRN ×2 (10:43→11:12)
[2017-03-28 11:12] VITALS: BP 180/85
[~2017-03-29] VITALS: Ht 175.3 cm; Wt 59.6 kg
[~2017-03-29 10:50] MED LIST changes: +CEFEPIME 1 GM (MAXIPIME) VIAL ONE; +CEFEPIME HCL 2 GM (MAXIPIME) VIAL ONE; +NS (IVPB) 50 ML ONE
[2017-03-29] MEDS: CATHETER FLUSH 10 ML SYR IV PRN ×2 (11:00→11:28)
[2017-03-29 11:28] VITALS: BP 138/66
[2017-04-19] MEDS ORDERED: MEROPENEM 1000 MG (MERREM) VIAL IV ONE (08:57)
[2017-04-19] MEDS ORDERED: NS (IVPB) 100 ML ONE (08:58)
[2017-04-29] MEDS ORDERED: FINA5TAB6 PO (15:17)
[2017-04-29] MEDS ORDERED: GLIP10TA13 PO (15:17)
[2017-04-29] MEDS ORDERED: DOCU-143 PO (15:17)
[2017-04-29] MEDS ORDERED: INSU100I29 SQ (15:17)
[2017-04-29] MEDS ORDERED: HYDR-3922 PO (15:17)
[2017-04-29] MEDS ORDERED: EXEN2PEN SQ (15:17)
[2017-04-29] MEDS ORDERED: DIGO250T PO (15:17)
[2017-04-29] MEDS ORDERED: HYDR-3820 PO (15:17)
[2017-04-29] MEDS ORDERED: PAMI30VI8 SQ (15:17)
[2017-04-29] MEDS ORDERED: METF1000 PO (15:17)
[2017-04-29] MEDS ORDERED: CEFE1VIA4 IV (15:18)
[2017-04-30] MEDS ORDERED: LISI40TA PO (08:28)
[2017-05-02] MEDS ORDERED: HYDR-3922 PO (11:03)
[2017-05-02] MEDS ORDERED: CARV12.53 PO (11:03)
[2017-05-02] MEDS ORDERED: POLY17PO23 PO (11:03)
[2017-05-02] MEDS ORDERED: DIGO250T PO (11:03)
[2017-05-02] MEDS ORDERED: LISI40TA PO (11:03)
[2017-05-02] MEDS ORDERED: METF1000 PO (11:03)
[2017-05-02] MEDS ORDERED: AMIT25TA9 PO (11:03)
[2017-05-02] MEDS ORDERED: HYDR-3820 PO (11:03)
[2017-05-02] MEDS ORDERED: FINA5TAB6 PO (11:03)
[2017-05-31] MEDS ORDERED: HYDR-3922 PO (09:44)
[2017-05-31] MEDS ORDERED: LISI40TA PO (09:44)
[2017-05-31] MEDS ORDERED: DIGO250T PO (09:44)
[2017-05-31] MEDS ORDERED: AMIT25TA9 PO (09:44)
[2017-05-31] MEDS ORDERED: FINA5TAB6 PO (09:44)
[2017-05-31] MEDS ORDERED: METF1000 PO (09:44)
[2017-05-31] MEDS ORDERED: CARV25TA PO (09:46)
[2017-05-31] MEDS ORDERED: SENN-120 PO (09:51)
[2017-05-31] MEDS ORDERED: HYDR-3820 PO (09:51)
[2017-05-31] MEDS ORDERED: ISOS30TA3 PO (12:12)
== END 2017-06-04 | disposition home or self-care (01) ==
LOC: SDC 10:50
PROVIDERS: ATTEND Surgery
DX: T81.32XD Disruption of internal operation (surgical) wound, not elsewhere classified, subsequent encounter (principal); T86.828 Other complications of skin graft (allograft) (autograft); E11.622 Type 2 diabetes mellitus with other skin ulcer; L97.223 Non-pressure chronic ulcer of left calf with necrosis of muscle; I70.242 Atherosclerosis of native arteries of left leg with ulceration of calf; Z45.2 Encounter for adjustment and management of vascular access device
CPT/HCPCS: 36569; 71010; 76937; 96365; 99211

== ENCOUNTER 2017-04-19 09:53 | Outpatient (RCR) | payer MEDICARE ==
[~2017-04-19 09:53] MED LIST changes: -CEFEPIME 1 GM (MAXIPIME) VIAL ONE; -CEFEPIME HCL 2 GM (MAXIPIME) VIAL ONE; -NS (IVPB) 50 ML ONE
[2017-05-02] MEDS ORDERED: AMIT25TA9 PO ×2 (11:03)
[2017-05-02] MEDS ORDERED: FINA5TAB6 PO ×2 (11:03)
[2017-05-02] MEDS ORDERED: CARV12.53 PO ×2 (11:03)
[2017-05-02] MEDS ORDERED: LISI40TA PO ×2 (11:03)
[2017-05-02] MEDS ORDERED: POLY17PO23 PO ×2 (11:03)
[2017-05-02] MEDS ORDERED: HYDR-3820 PO ×2 (11:03)
[2017-05-02] MEDS ORDERED: DIGO250T PO ×2 (11:03)
[2017-05-02] MEDS ORDERED: HYDR-3922 PO ×2 (11:03)
[2017-05-02] MEDS ORDERED: METF1000 PO ×2 (11:03)
== END 2017-04-19 16:00 | disposition home or self-care (01) ==
LOC: WOUNDCARE 09:53
PROVIDERS: ATTEND Surgery
DX: T81.32XD Disruption of internal operation (surgical) wound, not elsewhere classified, subsequent encounter (principal); E11.622 Type 2 diabetes mellitus with other skin ulcer; L97.223 Non-pressure chronic ulcer of left calf with necrosis of muscle; I70.245 Atherosclerosis of native arteries of left leg with ulceration of other part of foot
CPT/HCPCS: 11042; 11043; 11045; 11046; 82962; 87070; 87075; 87186; 87205; 97605; 97606; 99183; 99211; 99212; 99213; 99214

== ENCOUNTER 2017-04-21 20:30 | Outpatient (RCR) | payer MEDICARE ==
[2017-04-04 11:20] VITALS: BP 133/62
[2017-04-04 12:10] LABS: ANION GAP 9 MMOL/L (5-14); BLOOD UREA NITROGEN 30 MG/DL (7-18); BUN/CREATININE RATIO 32; CALCIUM 9.8 MG/DL (8.5-10.1); CARBON DIOXIDE 23 MMOL/L (21-32); CHLORIDE 107 MMOL/L (98-107); CREATININE SERUM 0.95 MG/DL (0.60-1.30); GFR ESTIMATED > 60; GLUCOSE 94 MG/DL (70-105); SODIUM 139 MMOL/L (135-145)
[2017-04-04] MEDS: NS IV SCH (12:15)
[2017-04-04] MEDS: TOBRAMYCIN IV SCH (12:15)
[2017-04-04 14:05] VITALS: BP 133/62
[2017-04-05] MEDS: TOBRAMYCIN IV SCH (12:07)
[2017-04-05] MEDS: NS IV SCH (12:07)
[2017-04-05 12:11] VITALS: BP 150/90
[2017-04-06] MEDS: TOBRAMYCIN IV SCH (10:25)
[2017-04-06] MEDS: CATHETER FLUSH 10 ML SYR IV PRN ×2 (10:25→11:23)
[2017-04-06] MEDS: NS IV SCH (10:25)
[2017-04-06 10:38] VITALS: BP 174/88
[2017-04-07 09:22] VITALS: BP 182/90
[2017-04-07] MEDS: NS IV SCH (09:31)
[2017-04-07] MEDS: TOBRAMYCIN IV SCH (09:31)
[2017-04-07] MEDS: CATHETER FLUSH 10 ML SYR IV PRN ×2 (09:31→10:23)
[2017-04-08] MEDS: NS IV SCH (11:58)
[2017-04-08] MEDS: CATHETER FLUSH 10 ML SYR IV PRN ×2 (11:58→12:59)
[2017-04-08] MEDS: TOBRAMYCIN IV SCH (11:58)
[2017-04-08 12:00] VITALS: BP_SYST 150; BP_SYST 164; BP_DIAS 82; BP_DIAS 88
[2017-04-09] MEDS: NS IV SCH (09:15)
[2017-04-09] MEDS: CATHETER FLUSH 10 ML SYR IV PRN ×2 (09:15→10:25)
[2017-04-09] MEDS: TOBRAMYCIN IV SCH (09:15)
[2017-04-09 09:22] VITALS: BP 172/88
[2017-04-10] MEDS: TOBRAMYCIN IV SCH (08:57)
[2017-04-10] MEDS: NS IV SCH (08:57)
[2017-04-10] MEDS: CATHETER FLUSH 10 ML SYR IV PRN ×2 (08:57→09:58)
[2017-04-10 10:01] VITALS: BP 139/81
[2017-04-11] MEDS: CATHETER FLUSH 10 ML SYR IV PRN (11:45)
[2017-04-11] MEDS: NS IV SCH (11:45)
[2017-04-11] MEDS: TOBRAMYCIN IV SCH (11:45)
[2017-04-11 13:02] VITALS: BP 173/102
[2017-04-12] MEDS: CATHETER FLUSH 10 ML SYR IV PRN ×2 (11:30→12:45)
[2017-04-12] MEDS: NS IV SCH (11:45)
[2017-04-12] MEDS: TOBRAMYCIN IV SCH (11:45)
[2017-04-12 11:58] LABS: ANION GAP 9 MMOL/L (5-14); BLOOD UREA NITROGEN 26 MG/DL (7-18); BUN/CREATININE RATIO 24; CALCIUM 10.2 MG/DL (8.5-10.1); CARBON DIOXIDE 25 MMOL/L (21-32); CHLORIDE 103 MMOL/L (98-107); CREATININE SERUM 1.09 MG/DL (0.60-1.30); GFR ESTIMATED > 60; GLUCOSE 170 MG/DL (70-105); POTASSIUM 5.6 MMOL/L (3.6-5.0); SODIUM 137 MMOL/L (135-145); TOBRAMYCIN,TROUGH 1.2 UG/ML (<2.0)
[2017-04-12 12:50] VITALS: BP 159/93
[2017-04-13 09:55] VITALS: BP 142/77
[2017-04-13] MEDS: NS IV SCH (10:13)
[2017-04-13] MEDS: TOBRAMYCIN IV SCH (10:13)
[2017-04-13] MEDS: CATHETER FLUSH 10 ML SYR IV PRN ×2 (10:13→11:12)
[2017-04-14 08:56] VITALS: BP 163/75
[2017-04-14] MEDS: CATHETER FLUSH 10 ML SYR IV PRN ×2 (09:07→10:03)
[2017-04-14] MEDS: TOBRAMYCIN IV SCH (09:08)
[2017-04-14] MEDS: NS IV SCH (09:08)
[2017-04-15] MEDS: CATHETER FLUSH 10 ML SYR IV PRN ×2 (12:32→13:29)
[2017-04-15] MEDS: TOBRAMYCIN IV SCH (12:32)
[2017-04-15] MEDS: NS IV SCH (12:32)
[2017-04-15 12:35] VITALS: BP 184/75
[2017-04-15 13:00] LABS: ANION GAP 7 MMOL/L (5-14); BLOOD UREA NITROGEN 22 MG/DL (7-18); BUN/CREATININE RATIO 20; CALCIUM 9.9 MG/DL (8.5-10.1); CARBON DIOXIDE 24 MMOL/L (21-32); CHLORIDE 104 MMOL/L (98-107); CREATININE SERUM 1.12 MG/DL (0.60-1.30); GFR ESTIMATED > 60; POTASSIUM 5.8 MMOL/L (3.6-5.0); SODIUM 135 MMOL/L (135-145)
[2017-04-15 13:02] LABS: GLUCOSE 51 MG/DL (70-105)
[2017-04-16 11:10] VITALS: BP 178/84
[2017-04-16] MEDS: CATHETER FLUSH 10 ML SYR IV PRN ×2 (11:12→12:10)
[2017-04-16] MEDS: NS IV SCH (11:12)
[2017-04-16] MEDS: TOBRAMYCIN IV SCH (11:12)
[2017-04-17 11:55] VITALS: BP 157/84
[2017-04-17] MEDS: NS IV SCH (12:13)
[2017-04-17] MEDS: TOBRAMYCIN IV SCH (12:13)
[2017-04-17] MEDS: CATHETER FLUSH 10 ML SYR IV PRN ×2 (12:13→13:13)
[2017-04-18] MEDS: CATHETER FLUSH 10 ML SYR IV PRN (16:00)
[2017-04-18] MEDS: MEROPENEM 1 GM/NS 100 ML IVPB IV NR ×2 (16:00)
[2017-04-18 16:51] VITALS: BP 154/70
[2017-04-19] MEDS: CATHETER FLUSH 10 ML SYR IV PRN ×2 (09:08→09:39)
[2017-04-19] MEDS: MEROPENEM 1 GM/NS 100 ML IVPB IV NR ×2 (09:09)
[2017-04-19 09:41] VITALS: BP 172/58
[2017-04-20] MEDS: MEROPENEM 1 GM/NS 100 ML IVPB IV NR ×4 (09:04→20:46)
[2017-04-20] MEDS: CATHETER FLUSH 10 ML SYR IV PRN (09:38)
[2017-04-20 09:39] VITALS: BP 174/85
[2017-04-20 21:30] VITALS: BP 174/82
[~2017-04-21] VITALS: Ht 175.3 cm; Wt 59.9 kg
[2017-04-21] MEDS: CATHETER FLUSH 10 ML SYR IV PRN ×2 (09:09→21:17)
[2017-04-21] MEDS: MEROPENEM 1 GM/NS 100 ML IVPB IV NR ×4 (09:10→21:17)
[2017-04-21 09:45] VITALS: BP 167/79
[~2017-04-21 20:30] MED LIST changes: +MEROPENEM 1000 MG (MERREM) VIAL IV ONE; +NS (IVPB) 100 ML ONE; +TROUGH ORDER-PHARMACY XX ONE
[2017-04-21] MEDS ORDERED: NS (IVPB) 100 ML ONE (21:04)
[2017-04-21] MEDS ORDERED: MEROPENEM 1000 MG (MERREM) VIAL IV ONE (21:04)
[2017-04-21 21:50] VITALS: BP 160/73
[2017-04-29] MEDS ORDERED: HYDR-3922 PO (15:17)
[2017-04-29] MEDS ORDERED: METF1000 PO (15:17)
[2017-04-29] MEDS ORDERED: GLIP10TA13 PO (15:17)
[2017-04-29] MEDS ORDERED: DOCU-143 PO (15:17)
[2017-04-29] MEDS ORDERED: DIGO250T PO (15:17)
[2017-04-29] MEDS ORDERED: PAMI30VI8 SQ (15:17)
[2017-04-29] MEDS ORDERED: INSU100I29 SQ (15:17)
[2017-04-29] MEDS ORDERED: EXEN2PEN SQ (15:17)
[2017-04-29] MEDS ORDERED: HYDR-3820 PO (15:17)
[2017-04-29] MEDS ORDERED: FINA5TAB6 PO (15:17)
[2017-04-29] MEDS ORDERED: CEFE1VIA4 IV (15:18)
[2017-04-30] MEDS ORDERED: LISI40TA PO (08:28)
[2017-05-02] MEDS ORDERED: HYDR-3820 PO (11:03)
[2017-05-02] MEDS ORDERED: HYDR-3922 PO (11:03)
[2017-05-02] MEDS ORDERED: AMIT25TA9 PO (11:03)
[2017-05-02] MEDS ORDERED: FINA5TAB6 PO (11:03)
[2017-05-02] MEDS ORDERED: POLY17PO23 PO (11:03)
[2017-05-02] MEDS ORDERED: DIGO250T PO (11:03)
[2017-05-02] MEDS ORDERED: LISI40TA PO (11:03)
[2017-05-02] MEDS ORDERED: CARV12.53 PO (11:03)
[2017-05-02] MEDS ORDERED: METF1000 PO (11:03)
[2017-05-31] MEDS ORDERED: DIGO250T PO (09:44)
[2017-05-31] MEDS ORDERED: METF1000 PO (09:44)
[2017-05-31] MEDS ORDERED: FINA5TAB6 PO (09:44)
[2017-05-31] MEDS ORDERED: AMIT25TA9 PO (09:44)
[2017-05-31] MEDS ORDERED: LISI40TA PO (09:44)
[2017-05-31] MEDS ORDERED: HYDR-3922 PO (09:44)
[2017-05-31] MEDS ORDERED: CARV25TA PO (09:46)
[2017-05-31] MEDS ORDERED: HYDR-3820 PO (09:51)
[2017-05-31] MEDS ORDERED: SENN-120 PO (09:51)
[2017-05-31] MEDS ORDERED: ISOS30TA3 PO (12:12)
== END 2017-07-03 | disposition home or self-care (01) ==
LOC: 4TH RCR 20:30
PROVIDERS: ATTEND Surgery
DX: E11.622 Type 2 diabetes mellitus with other skin ulcer (principal); L97.222 Non-pressure chronic ulcer of left calf with fat layer exposed; I70.242 Atherosclerosis of native arteries of left leg with ulceration of calf; T81.32XD Disruption of internal operation (surgical) wound, not elsewhere classified, subsequent encounter; T86.828 Other complications of skin graft (allograft) (autograft)
CPT/HCPCS: 36415; 36592; 80048; 80200; 82962; 96365; 99211

== ENCOUNTER 2017-04-26 11:29 | Inpatient (IN) | payer MEDICARE ==
[~2017-04-26] VITALS: Ht 175.3 cm; Wt 63.7 kg
[~2017-04-26 11:29] MED LIST changes: -MEROPENEM 1000 MG (MERREM) VIAL IV ONE; -NS (IVPB) 100 ML ONE; -TROUGH ORDER-PHARMACY XX ONE
[2017-04-26 13:00] VITALS: BP 127/66
--- NOTE | 2017-04-26 13:35 | PM&R Post Admission Assessment ---
Post Admission Physician Asses The preadmission screen agrees with the post admission assessment that the patient is a good candidate for inpatient rehabilitation. The patient will have a comprehensive program of inpatient amputee rehabilitation with a goal of maximizing level of functional independence at the w/c level prior to discharge home with family and HHC. The patient will have PT/OT ninety minutes per day, each discipline, five days a week for gait, strengthening, conditioning, balance, ADLs, any patient/family/caregiver training as necessary. Speech therapy to do cognitive assessment and treat as indicated. Rehabilitation nursing to assist with bowel, bladder, skin, wound care, medication administration, pain management. Engine Oiler to assist with discharge planning, community reentry. SCD's for DVT prophylaxis on the right. He appears to be well motivated to participate in three hours of therapy a day. He should be able to tolerate three hours of therapy a day from a medical and surgical standpoint. He should benefit from the three hours of therapy a day. He has a reasonable discharge plan, reasonable discharge rehabilitation goals and a supportive family. He has various comorbidities that need to be closely monitored with medications and treatments adjusted on a daily basis as needed. These include: DM HTN Tachycardia PVD Barriers to discharge for this patient who had been independent prior to this are for him to be modified independent to supervision for ADLs and mobility skills at the W/C level of functionprior to discharge home with family and HHC , so as to lessen the burden of the caregivers. Risks for this patient include: 1. Fall 2. Fracture 3. DVT 4. Pulmonary embolism 5. Wound infection 6. Skin breakdown 7. Contractures 8. Poorly controlled pain 9. Urinary retention 10. UTI 11. Respiratory infection 12. Aspiration 13, Poorly controlled HTN 14. Poorly controlled DM 15. Recurrent Tachycardia Estimated Length of Stay: 14 days Prognosis: Rehab prognosis appears good for goal of discharge home with family modified independent to supervision for ADLs and mobility skills at the w/c level of function. JOHNIE RANDALL MD Apr 26, 2017 13:35
--- NOTE | 2017-04-26 15:24 | ST Cognitive Linguistic Eval ---
Speech Evaluation-General Medical Diagnosis Above Knee Amputation (left) Onset Date: Apr 26, 2017 Therapy Diagnosis Therapy Diagnosis: Cognitive Linguistic Skills Grossly WNL Referral Referring Physician: Dr. Simon Anaya Reason for Referral: Evaluation/Treatment Cognitive Screen Medical History Pertinent Medical History: CAD, DM, HTN, Neuropathy Speech PLF-Current Status Prior Level of Function Per patient, he experienced intermittent confusion secondary to pain medication while at an outside hospital. The patient stated the confusion has improved since that time. The patient denied additional concerns with cognition, speech, or language. Subjective The patient was recently admitted to [facility] Rehabilitation unit with a diagnosis of left above knee amputation. The patient greeted the clinician appropriately and was agreeable to participation in the cognitive evaluation. Language Eval: Auditory Comprehends Simple Yes/No Ques: Functional Indent/Objects Multiple Martinez: Functional Ident/Pics in Multiple Martinez: Functional Follows 1-Step Commands: Functional Follows Complex Directions: Functional Follows General Conversations: Functional Language Eval: Verbal Language Completes Spontaneous Greeting: Functional Produces Auto, Serial Info: Functional Imitates Simple Words/Phrases: Functional Word Finding: Functional Requests Basic Needs: Functional States Basic Personal Info: Functional Expresses Complex Ideas: Functional Cognitive Patient Orientation The patient was independently oriented to month, day, date, and year. Objective Cognitive Domain Attention: WNL Memory: WNL Problem Solving: Functional Objective Impression The patient demonstrated cognitive linguistic skills grossly within normal limits and adequate for completion of ADL's. Communication/Social Cognition Comprehension: 5 Expression: 6 Social Interaction: 6 Problem Solvin Memory: 5 Speech Patient Assess Expression of Ideas/Wants: Expression (4) Understanding Vebal Content: Understands (4) Brief Interview-Mental Status: Yes Repetition of Three Words: Three (3) Temporal Orientation: Year: Correct (3) Temporal Orientation: Month: Accurate within 5 days(2) Temporal Orientation: Day: Correct (1) Recall : Wear to say "Sock": Yes, no cue required (2) Recall : Color: Yes, no cue required (2) Recall : Bed: Yes, no cue required (2) Speech-Plan Treatment Plan Speech Therapy Treatment Plan: Discontinue ST Evaluation, only. Frequency: Modified Program (IRF) Estimated Hrs Per Day: .25 hour per day (The patient will not receive skilled speech pathology services.) Rehab Potential: Guarded Safety Risks/Education Teaching Recipient: Patient Teaching Methods: Discussion Response to Teaching: Verbalize Understanding Education Topics Provided: Plan of Care, Results, Recommendations Time Speech Therapy Time In: 13:13 Speech Therapy Time Out: 13:28 Total Billed Time: 15 Billed Treatment Time 1, ABDULKADIR JORDAN Apr 26, 2017 15:24
--- NOTE | 2017-04-26 15:42 | Occupational Therapy Eval ---
OT Evaluation-General/PLF Medical Diagnosis Admission Date Apr 26, 2017 at 12:58 Medical Diagnosis: Above Knee Amputation (left) Onset Date: Apr 26, 2017 Therapy Diagnosis Therapy Diagnosis: decreased self care skills Height/Weight Height (Feet): 5 Height (Inches): 9.00 Weight (Pounds): 132 Weight (Ounces): 0.0 Weight Bear Status Location Restriction: L LE Referral Physician: Héctor Medical History Pertinent Medical History: CAD, DM, HTN, Neuropathy Additional Medical History lumbar spine surgery, left BKA Current History Pt had left AKA on 04/22/17 Reviewed History: Yes Social History Home: Multilevel (can stay on main level) Current Living Status: Spouse Entry Into Home: Ramp ADL-Prior Level of Function ADL PLOF Comments Pt states he has been independent with most ADLs. Spouse has been assisting with bathing. Pt has been using FWW only to walk to restroom, has been using w/ c for remainder of mobility. Pt states he has fallen several times at home. DME/Equipment: Bath Chair, Tub/Shower OT Current Status Subjective Pt agrees to therapy. Pt reports 8/10 pain in left LE. Mental Status/Objective Patient Orientation: Person, Place, Situation Current Glasses/Contacts: Yes Hearing Aids: No Dentures/Partials: Yes (uppers) Hand Dominance: Right Upper Extremity ROM Grossly WFL Upper Extremity Coordination Intact Upper Extremity Sensation Pt reports tingling in 4th and 5th digits on bilateral hands Upper Extremity Strength Grossly 4/5 ADL-Treatment ADL-Current Pt completed sponge bath while seated in w/c. Doffed clothing with SBA. Pt weight shifted left and right to pull pants down rather than standing. Upper body bathing completed with set up. Pt washed bilateral upper legs, right lower leg, and obey area with SBA. Pt required CGA for balance while washing buttocks. Don pullover shirt with set up. Pt donned pants with minimal assistance for balance during pant hike. Assist required to don right sock. Pt completed grooming tasks while seated at sink. Pt able to brush teeth and wash face with set up. Stand pivot transfer w/c to toilet with CGA using grab bars. Pt able to complete toileting hygiene, requires CGA for balance during clothing management. Pt able to wash hands at sink from w/c level. Functional [place] Measure 0=Not Assessed/NA 4=Minimal Assistance 1=Total Assistance 5=Supervision or Setup 2=Maximal Assistance 6=Modified [place] 3=Moderate Assistance 7=Complete IndependenceIRFPAI Quality Coding Scale 6 Independent with activity with or without an assistive device 5 Patient requires set up or clean up by helper. Patient completes activity by themselves 4 Supervision or touching assist (CGA). [place] provide cues , steadying assist 3 The helper provides less than half the effort to complete the activity 2 The helper provides more than half the effort to complete the activity 1 Dependent. The helper does all the effort to complete an activity 7 Patient refused to complete or attempt activity 9 The patient did not perform the activity before the current illness or injury 88 Not attempted due to Medical conditions or safety concerns Eating (FIM): 6 (Pt reports feeding self, cutting food, and managing packages without assistance.) Eating (QC): 6 Grooming (FIM): 5 Oral Hygiene (QC): 5 Bathing (FIM): 4 Shower/Bathe Self (QC): 4 Upper Body Dressing (FIM): 5 Upper Body Dressing (QC): 5 Lower Body Dressing (FIM): 4 Lower Body Dressing (QC): 3 On/Off Footwear (QC): 3 Toileting (FIM): 4 Toileting Hygiene (QC): 4 Toilet/Commode Transfer (FIM): 4 Toilet Transfer (QC): 4 (CGA) Other Treatments Pt performed w/c mobility to therapy gym without assistance. Bilateral UE exercises completed to increase strength needed for ADLs and transfers. Pt performed shoulder flexion, abduction, biceps curls, and triceps extension exercises x20 reps with moderate resistance (red) theraband. Rest breaks between exercises. Occasional cues required for proper exercise technique. Arm bike [id number] to increase overall strength and activity tolerance. Pt completed activity with moderate resistance and slow pace. No rest breaks needed. Graded clothespin activity with bilateral hands to increase principal technical specialist/pinch strength. Pt completed fine motor activity with nuts and bolts using bilateral UE with 1# weights in place to increase coordination and strength. Pt sitting in w/c with PT present after session. Education OT Patient Education: Rehab process Teaching Recipient: Patient Teaching Methods: Discussion Response to Teaching: Verbalize Understanding OT Short Term Goals Short Term Goals Time Frame: May 03, 2017 Lower Body Dressing(FIM): 5 Toileting(FIM): 5 Toilet/Commode Transfer(FIM): 5 Shower Transfer(FIM): 5 Additional Short Term Goals: 1-Demonstrate ADL Tasks, 2-Verbalize Understanding 1=Demonstrate adherence to instructed precautions during ADL tasks. 2=Patient will verbalize/demonstrate understanding of assistive devices/ modifications for ADL. 3=Patient will improve strength/tolerance for activity to enable patient to perform ADL's. OT Penitentiary Goals Penitentiary Goals Time Frame: May 17, 2017 Eating (FIM): 6 Eating (QC): 6 Groomin Oral Hygiene (QC): 6 Bathing(FIM): 5 Shower/Bathe Self (QC): 5 Upper Body Dressing(FIM): 6 Upper Body Dressing (QC): 6 Lower Body Dressing(FIM): 6 Lower Body Dressing (QC): 6 On/Off Footwear (QC): 6 Toileting(FIM): 6 Toileting Hygiene (QC): 6 Toilet/Commode Transfer(FIM): 6 Toilet/Commode Transfer (QC): 6 Shower Transfer(FIM): 5 Additional Goals: 1-Demonstrate ADL Tasks, 2-Verbalize Understanding, 3- ImproveStrength/Miranda 1=Demonstrate adherence to instructed precautions during ADL tasks. 2=Patient will verbalize/demonstrate understanding of assistive devices/ modifications for ADL. 3=Patient will improve strength/tolerance for activity to enable patient to perform ADL's. OT Education/Plan Problem List/Assessment Assessment: Decreased Activ Tolerance, Decreased UE Strength, Dependent Transfers, Impaired Funct Balance, Impaired Self-Care Skills Pt s/p left AKA with decreased ADL functioning, mobility, strength, and activity tolerance. Pt to benefit from skilled OT intervention for ADL training , transfers, strengthening, and home safety education to maximize level of function and allow safe return home. Discharge Recommendations Plan/Recommendations: Continue POC Treatment Plan/Plan of Care Treatment,Training & Education: Yes Patient would benefit from OT for education, treatment and training to promote independence in ADL's, mobility, safety and/or upper extremity function for ADL' s. Plan of Care: ADL Retraining, Functional Mobility, Group Exercise/Act as Ind, UE Funct Exercise/Act Treatment Duration: May 17, 2017 Frequency: At least 5-7 days/Wk (IRF) Estimated Hrs Per Day: 1.5 hours per day Agreement: Yes Rehab Potential: Good Time/GCodes Start Time: 13:30 Stop Time: 15:15 Total Time Billed (hr/min): 105 Billed Treatment Time 1 visit, EVL(15minutes), ADLx3(45minutes), EXx3(45minutes) DARIO RUCKER OT Apr 26, 2017 15:41
[2017-04-26] MEDS ORDERED: PNEUMOCOCCAL VACCINE 25 MCG/0.5 ML VIAL IM ONE (15:45)
--- NOTE | 2017-04-26 16:09 | Physical Therapy Evaluation ---
PT Evaluation-General Medical Diagnosis Admission Date Apr 26, 2017 at 12:58 Medical Diagnosis: Above Knee Amputation (left) Onset Date: Apr 26, 2017 Therapy Diagnosis Therapy Diagnosis: impaired mobility, stength, endurance, ROM Height/Weight Height (Feet): 5 Height (Inches): 9.00 Weight (Pounds): 132 Weight (Ounces): 0.0 Precautions Precautions/Isolations: Fall Prevention, Standard Precautions Weight Bear Status Location Restriction: L Referral Physician: Héctor Reason for Referral: Evaluation/Treatment Medical History Pertinent Medical History: CAD, DM, HTN, Neuropathy, PVD Current History Had a previous BKA, now had an AKA. Reviewed History: Yes Social History Home: Multilevel (can stay on main level) Current Living Status: Spouse Entry Into Home: Ramp Prior/Core FIM Prior Level of Function Functional [place] Measure 0=Not Assessed/NA 4=Minimal Assistance 1=Total Assistance 5=Supervision or Setup 2=Maximal Assistance 6=Modified [place] 3=Moderate Assistance 7=Complete [place] Bed Mobility: 6 Transfers (B,C,W/C) (FIM): 6 Gait: 2 Patient states he was only walking about 30-40' with a rolling walker. PT Evaluation-Current Subjective Patient in therapy gym pre tx, just got done with OT. Patient has pain of 7/10 in his left residual limb. Pt/Family Goals to be independent at home again Objective Patient Orientation: Normal For Age ROM/Strength ROM Lower Extremities WNL both lower extremities except patient has tight hip flexors on the left side and does not have full hip extension. Strenght Lower Extremities Left leg not tested due to pain. Right leg hip flexion 3+/5, knee flexion 4+/5 , knee extension 4+/5, dorsiflexion 4/5 Neuromuscular (Tone, Coordination, Reflexes) WNL Sensory Vision: Functional Hand Dominance: Right Sensation Right Lower Extremit: Intact Sensation Left Lower Extremity: Intact Transfers Functional [place] Measure 0=Not Assessed/NA 4=Minimal Assistance 1=Total Assistance 5=Supervision or Setup 2=Maximal Assistance 6=Modified [place] 3=Moderate Assistance 7=Complete IndependenceIRFPAI Quality Coding Scale 6 Independent with activity with or without an assistive device 5 Patient requires set up or clean up by helper. Patient completes activity by themselves 4 Supervision or touching assist (CGA). [place] provide cues , steadying assist 3 The helper provides less than half the effort to complete the activity 2 The helper provides more than half the effort to complete the activity 1 Dependent. The helper does all the effort to complete an activity 7 Patient refused to complete or attempt activity 9 The patient did not perform the activity before the current illness or injury 88 Not attempted due to Medical conditions or safety concerns Transfers (B, C, W/C) (FIM): 4 Scootin Rollin Roll Left to Right (QC): 4 Supine to/from Sit: 5 Sit to/from Stand: 4 bed t/f WC(FIM only if WC use): 4 Sit to Lying (QC): 4 Lying to Sitting/Side of Bed(Q: 4 Sit to Stand (QC): 4 Chair/Ilj-sf-Onxww Xfer(QC): 4 Patient performs bed mobility with SBA, sit to stand and stand pivot transfer is CGA, occasional cues for safety and hand placement. Gait Does the Patient Walk?: Yes Mode of Locomotion: Walk Anticipated Mode of Locomotion: Walk Gait (FIM): 2 Walk 10 feet (QC): 4 Walk 50 ft with 2 Turns(QC): 4 Walk 150 ft (QC): 88 Walking 10ft/uneven surface-QC: 88 Distance: 50' Gait Level of Assist: 4 Gait Persons Needed: 1 Gait Assistive Device: FWW Comments/Gait Description Patient ambulated 50' and 25' with a rolling walker with CGA. He was not able to ambulate on an uneven surface because he was too tired for ambulation after those two walks. Wheelchair Training Does the Pt Use a Wheelchair?: Yes Wheelchair (FIM): 6 Distance: 150' Wheel 50 ft with 2 turns (QC): 6 Wheel 150 ft (QC): 6 Type of Wheelchair: Manual Stairs 1 Step (curb) (QC): 88 4 Steps (QC): 88 12 Steps (QC): 88 If not tested on admit;explain Patient was not able to hop up on a step with a rolling walker. Balance Sitting Static: Normal Sitting Dynamic: Normal Standing Static: Fair Standing Dynamic: Fair Treatment Nustep level 5 for 15 min, LAQ right side with 2# ankle weight for 5 min, left residual limb flex, abd, ext x20 AROM Assessment/Needs Patient has impaired mobility, strength, endurance post left AKA. Rehab Potential: Fair PT Short Term Goals Short Term Goals Time Frame: May 03, 2017 Transfers (B,C,W/C) (FIM): 5 Gait (FIM): 2 Gait Distance Comment: 100' Gait Level of Assist: 5 Gait Assistive Device: FWW PT Long-Term Goals [place] Worker Goals PT Long-Term Goals Time Frame: May 17, 2017 Transfers (B,C,W/C) (FIM): 6 Sit to Lying (QC): 6 Lying-Sitting on Side/Bed(QC): 6 Sit to Stand (QC): 6 Rollin Roll Left to Right (QC): 6 Chair/Xgj-hn-Xjwsy Xfer(QC): 6 Gait (FIM): 5 Distance: 150' Walk 10 feet (QC): 4 Walk 10ft-Uneven Surface(QC): 4 Walk 50ft with 2 Turns (QC): 4 Walk 150 ft (QC): 4 Gait Level of Assist: 5 Gait Assistive Device: FWW PT Plan Problem List Problem List: Activity Tolerance, Functional Strength, Safety, Balance, Gait, Transfer, Bed Mobility, ROM Treatment/Plan Treatment Plan: Continue Plan of Care Treatment Plan: Bed Mobility, Education, Functional Activity Miranda, Functional Strength, Group Therapy, Gait, Safety, Therapeutic Exercise, Transfers Treatment Duration: May 17, 2017 Frequency: At least 5-7 days/Wk (IRF) Estimated Hrs Per Day: 1.5 hours per day Patient and/or Family Agrees t: Yes Safety Risks/Education Patient Education: Gait Training, Transfer Techniques, Correct Positioning, W/ C Management, Safety Issues Teaching Recipient: Patient Teaching Methods: Demonstration, Discussion Response to Teaching: Reinforcement Needed Discharge Recommendations Plan Patient will have bed mobility and transfer training, balance and endurance training, functional strengthening, stair training, gait training, and education to improve functional mobility and independence at home. Therapy D/C Recommendations: Home w/ Family Support Time/GCodes Time In: 1515 Time Out: 1615 Total Billed Treatment Time: 60 Total Billed Treatment 1 visit EVL 15' GT 15' EX 30' SAW PIÑA PT Apr 26, 2017 16:09
[2017-04-26] MEDS: inSUlin ASPART (NovoLOG) 1 UNIT/0.01 ML (CHARGE PER UNIT) SC SCH ×2 (16:50→20:55)
[2017-04-26] MEDS: glipiZIDE 5 MG (GLUCOTROL) TAB PO SCH (16:53)
[2017-04-26] MEDS: metFORMIN 500 MG (GLUCOPHAGE) TAB PO SCH (16:53)
[2017-04-26 18:40] VITALS: BP 173/77
[2017-04-26] MEDS: CARVEDILOL 12.5 MG (COREG) TABLET PO SCH (21:05)
[2017-04-26] MEDS: HYDROcodone/APAP 10 MG/325 MG (LORTAB) TAB PO PRN (21:06)
[2017-04-26] MEDS: AMITRIPTYLINE 25 MG (ELAVIL) TAB PO SCH (21:06)
[2017-04-26] MEDS: DOCUSATE SODIUM 100 MG (COLACE) CAP PO SCH (21:06)
[2017-04-26] MEDS: inSUlin DETERMIR 1 UNIT/0.01 ML (LEVEMIR) CHARGE PER UNIT SQ SCH (22:05)
[2017-04-27] MEDS: HYDROcodone/APAP 10 MG/325 MG (LORTAB) TAB PO PRN ×4 (03:07→19:18)
[2017-04-27 03:15] VITALS: BP 170/89
[2017-04-27] MEDS: metFORMIN 500 MG (GLUCOPHAGE) TAB PO SCH ×2 (06:05→17:20)
[2017-04-27] MEDS: glipiZIDE 5 MG (GLUCOTROL) TAB PO SCH ×2 (06:05→17:20)
[2017-04-27 06:20] LABS: BASOPHILS % (AUTO) 0 % (0-10); EOSINOPHILS # (AUTO) 0.5 10^3/uL (0.0-0.3); EOSINOPHILS % (AUTO) 7 % (0-10); LYMPHOCYTES # (AUTO) 1.3 X 10^3 (1.0-4.0); LYMPHOCYTES % (AUTO) 17 % (12-44); MEAN CORPUSCULAR HEMOGLOBIN 27 PG (25-34); MEAN CORPUSCULAR HGB CONC 33 G/DL (32-36); MEAN CORPUSCULAR VOLUME 82 FL (80-99); MEAN PLATELET VOLUME 9.5 FL (7.4-10.4); MONOCYTES # (AUTO) 0.9 X 10^3 (0.0-1.0); MONOCYTES % (AUTO) 12 % (0-12); NEUTROPHILS % (AUTO) 65 % (42-75); PLATELET COUNT 449 10^3/uL (130-400); RED CELL DISTRIBUTION WIDTH 14.2 % (10.0-14.5); WHITE BLOOD COUNT 7.7 10^3/uL (4.3-11.0)
[2017-04-27] MEDS: inSUlin ASPART (NovoLOG) 1 UNIT/0.01 ML (CHARGE PER UNIT) SC SCH ×4 (06:29→21:59)
[2017-04-27 06:44] LABS: ALANINE AMINOTRANSFERASE 16 U/L (0-55); ALBUMIN 3.2 GM/DL (3.2-4.5); ANION GAP 9 MMOL/L (5-14); ASPARTATE AMINO TRANSFERASE 11 U/L (5-34); BILIRUBIN,TOTAL 0.7 MG/DL (0.1-1.0); BLOOD UREA NITROGEN 27 MG/DL (7-18); BUN/CREATININE RATIO 23; CALCIUM 9.8 MG/DL (8.5-10.1); CARBON DIOXIDE 22 MMOL/L (21-32); CHLORIDE 104 MMOL/L (98-107); CREATININE SERUM 1.18 MG/DL (0.60-1.30); GFR ESTIMATED > 60; GLUCOSE 92 MG/DL (70-105); SODIUM 135 MMOL/L (135-145); TOTAL PROTEIN 6.9 GM/DL (6.4-8.2)
[2017-04-27] MEDS: DIGOXIN 0.25 MG (LANOXIN) TAB PO SCH (08:11)
[2017-04-27] MEDS: AMITRIPTYLINE 25 MG (ELAVIL) TAB PO SCH ×2 (08:11→20:43)
[2017-04-27] MEDS: ASPIRIN E.C. 325 MG (ECOTRIN) TABLET PO SCH (08:11)
[2017-04-27] MEDS: FINASTERIDE (PROSCAR) 5 MG TAB PO SCH (08:12)
[2017-04-27] MEDS: DOCUSATE SODIUM 100 MG (COLACE) CAP PO SCH ×2 (08:12→20:43)
[2017-04-27] MEDS: CARVEDILOL 12.5 MG (COREG) TABLET PO SCH ×2 (08:12→20:43)
[2017-04-27 08:13] VITALS: BP 150/81
--- NOTE | 2017-04-27 11:52 | Physical Therapy Daily Note ---
PT Daily Note-Current Subjective Patient sitting EOB pre tx, agrees to PT, states he has more pain today in his left side residual limb 03/16. Appearance Patient sitting EOB post tx with nurse call, phone, tray, in room. Mental Status Patient Orientation: Normal For Age Transfers Functional [place] Measure 0=Not Assessed/NA 4=Minimal Assistance 1=Total Assistance 5=Supervision or Setup 2=Maximal Assistance 6=Modified [place] 3=Moderate Assistance 7=Complete IndependenceIRFPAI Quality Coding Scale 6 Independent with activity with or without an assistive device 5 Patient requires set up or clean up by helper. Patient completes activity by themselves 4 Supervision or touching assist (CGA). [place] provide cues , steadying assist 3 The helper provides less than half the effort to complete the activity 2 The helper provides more than half the effort to complete the activity 1 Dependent. The helper does all the effort to complete an activity 7 Patient refused to complete or attempt activity 9 The patient did not perform the activity before the current illness or injury 88 Not attempted due to Medical conditions or safety concerns Transfers (B, C, W/C) (FIM): 4 Supine to/from Sit: 4 Bed to/from Chair: 4 CGA with transfers, occasional cues for safety and hand placement Gait Training Gait (FIM): 1 Distance: 25'x2 Gait Level of Assist: 4 Gait Persons Needed: 1 Gait Assistive Device: FWW Slow antalgic ambulation, patient states he cannot ambulate as far today due to pain. Wheelchair Training Does the Pt Use a Wheelchair?: Yes Wheelchair (FIM): 6 Distance: 150'x2 Type of Wheelchair: Manual Treatments wheelchair mobility, transfers, ambulation PT Short Term Goals Short Term Goals Time Frame: May 03, 2017 Transfers (B,C,W/C) (FIM): 5 Gait (FIM): 2 Gait Distance Comment: 100' Gait Level of Assist: 5 Gait Assistive Device: FWW Wheelchair Distance: 150' PT Intermediate Goals Intermediate Goals PT Director Rehabilitation Program Goals Time Frame: May 17, 2017 Transfers (B,C,W/C) (FIM): 6 Sit to Lying (QC): 6 Lying-Sitting on Side/Bed(QC): 6 Sit to Stand (QC): 6 Rollin Roll Left to Right (QC): 6 Chair/Olh-ph-Xnppq Xfer(QC): 6 Gait (FIM): 5 Distance: 150' Walk 10 feet (QC): 4 Walk 10ft-Uneven Surface(QC): 4 Walk 50ft with 2 Turns (QC): 4 Walk 150 ft (QC): 4 Gait Level of Assist: 5 Gait Assistive Device: FWW PT Plan Problem List Problem List: Activity Tolerance, Functional Strength, Safety, Balance, Gait, Transfer, Bed Mobility, ROM Treatment/Plan Treatment Plan: Continue Plan of Care Treatment Plan: Bed Mobility, Education, Functional Activity Miranda, Functional Strength, Group Therapy, Gait, Safety, Therapeutic Exercise, Transfers Treatment Duration: May 17, 2017 Frequency: At least 5-7 days/Wk (IRF) Estimated Hrs Per Day: 1.5 hours per day Patient and/or Family Agrees t: Yes Safety Risks/Education Patient Education: Gait Training, Transfer Techniques, Correct Positioning, W/ C Management, Safety Issues Teaching Recipient: Patient Teaching Methods: Demonstration, Discussion Response to Teaching: Reinforcement Needed Time/GCodes Time In: 1130 Time Out: 1155 Total Billed Treatment Time: 25 Total Billed Treatment 1 visit [facility] 10' GT 15' SAW PIÑA PT Apr 27, 2017 11:52
[2017-04-27 19:13] VITALS: BP 151/68
[2017-04-27] MEDS: inSUlin DETERMIR 1 UNIT/0.01 ML (LEVEMIR) CHARGE PER UNIT SQ SCH (21:59)
[2017-04-28] MEDS: HYDROcodone/APAP 10 MG/325 MG (LORTAB) TAB PO PRN ×5 (00:29→20:56)
--- NOTE | 2017-04-28 01:28 | HISTORY AND PHYSICAL ---
CHIEF COMPLAINT: Difficulty with mobility. HISTORY OF PRESENT ILLNESS: The patient is a 71-year-old male with significant PVD, who underwent left below-knee amputation in the past. He had rehab on this unit and did well, went home with family in [place], [place]. He was modified independent at the wheelchair level. He unfortunately developed dehiscence after a fall and went on to have a left [id number] amputation with Dr. Salgado on 04/22/2017 at [facility] in [place], [place]. He continued on Levemir and sliding scale insulin for his diabetes mellitus. Medications were restarted postoperatively for his hypertension. He had a course of IV antibiotics, which has now been discontinued. The patient was referred to Inpatient Rehabilitation Unit at [facility] for ongoing amputee rehabilitation. He presents with family in a wheelchair. He states that he is having no difficulty with his right leg at this point. His residual left limb above the knee is wrapped. He is utilizing hydrocodone for pain control. He had transfusion of 2 units packed red blood cells postop 04/24 for acute blood loss anemia. Medications were adjusted for his hypertension. He had some postop tachycardia, which resolved with his Coreg. His creatinine returned to baseline of 1.2. rior level of function: He had been modified independent at the wheelchair level prior to this for most of mobility and much of his ADLs. He lives in a wheelchair accessible home with his spouse. Currently he requires assistance for transfers and his basic ADLs due to decline in his functional independence postoperatively.He is Min assist for transfers His modified Independent for Eating He c/o Constipation but is continent of Bowel and bladder. He is min assist for toileting Modassist for lower body dressing Setup for upper body dressing PAST MEDICAL HISTORY: 1. Hypertension. 2. Tachycardia. 3. Insulin-dependent diabetes mellitus. 4. BPH 5. Chronic back pain 6. Depression /anxiety PAST SURGICAL HISTORY: As per above as well as 1. Prostatectomy 2. Lumbar spine surgery. 3. Prior revascularization surgeries for Peripheral vascular D ALLERGIES: Sulfa FAMILY HISTORY: HTN,DM ETOH abuse,CA. SOCIAL HISTORY: Disabled, retired.smokes cigars REVIEW OF SYSTEMS: Ten-point review of systems significant for some mild residual limb pain, phantom limb sensation.constpation chronic back pain falls MEDICATIONS: 1. Elavil 25 mg p.o. b.i.d. 2. Bydureon pen 2 mg subcutaneous . 3. Levemir insulin 30 units subcutaneous h.s. 4. Proscar 5 mg p.o. at bedtime. 5. Digoxin 0.25 mg p.o. daily. 6. ASA 325 mg p.o. daily. 7. Humalog insulin sliding scale regimen t.i.d. with meals. 8. Glipizide 20 mg p.o. b.i.d. 9. Hydrocodone APAP 10/325, 1 tablet p.o. q.6 h. p.r.n. for pain. 10. Glucophage 1000 mg p.o. b.i.d. 11. Coreg 37.5 mg p.o. b.i.d. 12. Colace 100 mg p.o. b.i.d. 13. Apresoline 10 mg p.o. b.i.d. PHYSICAL EXAMINATION: Significant for a pleasant male, appearing his stated age, in no acute distress, sitting in wheelchair. VITAL SIGNS: Within normal limits. He is afebrile. HEENT: Vision, speech, hearing, grossly intact, no oral lesion noted. NECK: Supple without mass. HEART: Regular rhythm. LUNGS: Clear. ABDOMEN: Soft, nontender. Bowel sounds present. EXTREMITIES: Left AKA is wrapped. No drainage noted. There is no lower leg edema. No calf tenderness on the right. MUSCULOSKELETAL: The patient has functional active range of motion in both upper extremities and right lower extremity and at the left hip. NEUROLOGIC: Sensation diminished to touch in the right foot. Stretch reflex decreased at the knee and ankle on the right. Strength is good on the right lower extremity, proximal left lower extremity and both upper extremities. Cognition appears grossly intact. IMPRESSION: 1. Ambulatory dysfunction secondary to left AKA due to peripheral vascular disease with nonhealing wound. 2. Tachycardia, resolved. Continue Coreg. 3. Diabetes mellitus, controlled on medication. Continue regimen. 4. Hypertension, controlled with medication trend, hydralazine started. 5. Pain management appears to be adequate. We will monitor and adjust as necessary. 6. Acute blood loss anemia. We will check admission labs. The patient has had transfusion at sending facility. 7. Chronic kidney disease. We will check BUN and creatinine, appears stable. The case was discussed with a nurse practitioner from sending facility today. 8. Chronic back pain s/p lumbars spine surgery 9. s/p prostatectomy 10. Postop constipation PLAN: The patient will have a comprehensive program of inpatient amputee rehabilitation with goal of maximizing level of functional independence prior to discharge home with family. The patient will have PT/OT 90 minutes per day, each discipline, 5 days week for 2 weeks for gait strengthening, conditioning, focus on wheelchair level of function, balance, energy conservation, any patient/family/caregiver training necessary, any adaptive equipment and training necessary, ADL training. Speech therapy to do cognitive assessment and treat as indicated. Rehabilitation nursing to assist with bowel, bladder, skin, wound care, medication administration, pain management. We will consult Dr. Larose to assist with medical management. The patient's PCP is in [place]. driver/sales workers to assist with discharge planning, community reentry. Follow-up with Dr. Salgado upon discharge from inpatient rehab unit. ESTIMATED LENGTH OF STAY: Two weeks. PROGNOSIS: Rehab prognosis appears good for goal of discharging home with family, hopefully, modified independent for ADLs and mobility skills at the wheelchair level of function. DIET: Carb consistent, heart healthy. CODE STATUS: Full code. Job ID: [id number] Dictated Date: 04/26/2017 13:26:21 Field Account Manager Date: 04/28/2017 01:03:40/argenis HE
[2017-04-28 06:00] VITALS: BP 147/82
[2017-04-28] MEDS: inSUlin ASPART (NovoLOG) 1 UNIT/0.01 ML (CHARGE PER UNIT) SC SCH ×4 (06:22→20:56)
[2017-04-28] MEDS: metFORMIN 500 MG (GLUCOPHAGE) TAB PO SCH ×2 (06:52→17:04)
[2017-04-28] MEDS: glipiZIDE 5 MG (GLUCOTROL) TAB PO SCH ×2 (06:53→17:03)
[2017-04-28 08:40] VITALS: BP 153/74
[2017-04-28] MEDS: AMITRIPTYLINE 25 MG (ELAVIL) TAB PO SCH ×2 (08:42→20:56)
[2017-04-28] MEDS: ASPIRIN E.C. 325 MG (ECOTRIN) TABLET PO SCH (08:42)
[2017-04-28] MEDS: CARVEDILOL 12.5 MG (COREG) TABLET PO SCH ×2 (08:42→20:56)
[2017-04-28] MEDS: FINASTERIDE (PROSCAR) 5 MG TAB PO SCH (08:42)
[2017-04-28] MEDS: DOCUSATE SODIUM 100 MG (COLACE) CAP PO SCH ×2 (08:42→20:56)
[2017-04-28] MEDS: DIGOXIN 0.25 MG (LANOXIN) TAB PO SCH (08:42)
[2017-04-28] MEDS ORDERED: MILK OF MAGNESIA 400 MG/5 ML 30 ML UDC PO PRN (12:00)
[2017-04-28 18:32] VITALS: BP 154/84
[2017-04-28] MEDS: POLYETHYLENE GLYCOL 17 GM (MIRALAX) PACK PO SCH (20:56)
[2017-04-29] MEDS: HYDROcodone/APAP 10 MG/325 MG (LORTAB) TAB PO PRN ×5 (01:36→21:31)
[2017-04-29 05:26] VITALS: BP 162/79
[2017-04-29] MEDS: inSUlin ASPART (NovoLOG) 1 UNIT/0.01 ML (CHARGE PER UNIT) SC SCH ×4 (05:37→21:33)
[2017-04-29] MEDS: metFORMIN 500 MG (GLUCOPHAGE) TAB PO SCH ×2 (06:35→17:25)
[2017-04-29] MEDS: glipiZIDE 5 MG (GLUCOTROL) TAB PO SCH ×2 (06:35→17:25)
--- NOTE | 2017-04-29 08:48 | Consultation ---
History of Present Illness History of Present Illness Patient Consulted On(jarrett/time) 04/29/17 08:44 Time Seen by Provider: 08:45 History of Present Illness patient had left iczii-aid-vtfc amputation. Patient for rehabilitation. Patient known diabetic. Patient has history of hypertension.. Previous surgeries below the knee left amputation, 2 hernias, and 2 back surgeries. Family history diabetes and heart disease in family. Denies asthma, TB, lung disease, cancer Allergies and Home Medications Allergies Coded Allergies: Sulfa (Sulfonamide Antibiotics) (Verified Allergy, Severe, HIVES, 02/05/17) temazepam (Verified Allergy, Severe, 02/05/17) MENTAL CONFUSION pravastatin (Verified Adverse Reaction, Severe, RASH, 02/05/17) clopidogrel (Verified Adverse Reaction, Unknown, 02/05/17) Home Medications Amitriptyline HCl 25 Mg Tablet, 25 MG PO BID, (Reported) Aspirin 325 Mg Tablet, 325 MG PO DAILY, (Reported) Carvedilol 25 Mg Tablet, 25 MG PO BID, (Reported) Digoxin 250 Mcg Tablet, 250 MCG PO HS, (Reported) Glipizide 5 Mg Tablet, 5 MG PO BID for 10 Days Prescribed by: TESSA FLORES on 01/29/17 0952 Hydrocodone/Acetaminophen 1 Each Tablet, 1 EA PO Q4H PRN for PAIN-MODERATE for 14 Days, #60 Prescribed by: JOHNIE RANDALL on 02/16/17818 Ibuprofen 800 Mg Tablet, 600 MG PO Q8HR for 30 Days, #60 Prescribed by: JOHNIE RANDALL on 02/16/1719 Insulin Determir 1,000 Units/10 Ml Soln, 8 UNIT SQ HS for 10 Days Prescribed by: TESSA FLORES on 01/29/17 09 Metformin HCl 500 Mg Tablet, 1,000 MG PO BID@ for 30 Days, #60 Prescribed by: JOHNIE RANDALL on 02/16/17 0819 Methyl-B12/l-Mefolate/B6 Phos 1 Each Tablet, 1 TAB PO TID, (Reported) Prasugrel HCl 10 Mg Tablet, 10 MG PO DAILY, (Reported) [Finasteride] 5 MG TAB, 5 MG PO HS for 30 Days, #30 Prescribed by: JOHNIE RANDALL on 02/16/17 0819 Past Lsvreli-Zhtsic-Gsvyiz Hx Patient Social History Alcohol Use: Denies Use Recreational Drug Use: No (Hx in ) Smoking Status: Former Smoker Type Used: Cigars Former Smoker/When Quit: Dec 29, 1979 Recent Foreign Travel: No Contact w/Someone Who Travel: No Recent Infectious Disease Expo: No Recent Hopitalizations: Yes (Left AKA- [place]) Physical Abuse Screen: No Sexual Abuse: No Seasonal Allergies Seasonal Allergies: No Surgeries HX Surgeries: Yes Surgeries: Amputation, Orthopedic, Prostatectomy, Vascular Surgery Respiratory Hx Respiratory Disorders: Yes Respiratory Disorders: Sleep Apnea Cardiovascular Hx Cardiac Disorders: Yes Cardiac Disorders: Coronary Artery Disease, High Cholesterol, Hypertension, Peripheral Vascular Neurological Hx Neurological Disorders: Yes Neurological Disorders: Neuropathy Reproductive System Hx Reproductive Disorders: No Sexually Transmitted Disease: No HIV/AIDS: No Genitourinary Hx Genitourinary Disorders: Yes Genitourinary Disorders: Benign Prostatic Hyperpl, Prostate Problems Gastrointestinal Hx Gastrointestinal Disorders: No Musculoskeletal Hx Musculoskeletal Disorders: Yes (Back surgery) Musculoskeletal Disorders: Chronic Back Pain Endocrine Hx Endocrine Disorders: Yes Endocrine Disorders: Diabetes, Insulin dep HEENT HX ENT Disorders: Yes HEENT Disorders: Cataract Loss of Vision: Denies Hearing Impairment: Denies Cancer Hx Cancer: No Psychosocial Hx Psychiatric Problems: Yes Behavioral Health Disorders: Anxiety, Depression Integumentary HX Skin/Integumentary Disorder: Yes (GANGRENE AND INFECTION IN LEFT FOOT) Skin/Integumentary Disorders: Recent Skin Changes Blood Transfusions Hx Blood Disorders: No Adverse Reaction to a Blood Tr: No Family Medical History Family Medial History: Abdominal aortic aneurysm G8 SISTER Alcoholism G8 BROTHER G8 BROTHER G8 BROTHER Arthritis G8 BROTHER G8 BROTHER G8 BROTHER G8 BROTHER G8 BROTHER G8 SISTER G8 SISTER Cardiovascular disease G8 SISTER Diabetes mellitus G8 BROTHER G8 BROTHER G8 BROTHER G8 SISTER G8 SISTER Drug abuse G8 BROTHER G8 BROTHER FH: COPD (chronic obstructive pulmonary disease) 19 FATHER FH: bladder cancer 19 MOTHER FH: prostate cancer 19 FATHER Headache disorder G8 BROTHER G8 BROTHER G8 BROTHER G8 BROTHER G8 BROTHER G8 BROTHER G8 BROTHER G8 BROTHER G8 SISTER G8 SISTER G8 SISTER G8 SISTER Hypercholesterolemia G8 BROTHER G8 BROTHER G8 BROTHER G8 BROTHER G8 BROTHER G8 SISTER G8 SISTER G8 SISTER G8 SISTER Hypertension 19 FATHER G8 BROTHER G8 BROTHER G8 BROTHER G8 BROTHER G8 BROTHER G8 BROTHER G8 BROTHER G8 BROTHER G8 SISTER G8 SISTER G8 SISTER G8 SISTER Thyroid disease Tuberculosis 19 FATHER Review of Systems-General Constitutional: weakness EENTM: no symptoms reported Respiratory: no symptoms reported Cardiovascular: no symptoms reported Gastrointestinal: no symptoms reported Genitourinary: no symptoms reported Physical Exam-General Problems Physical Exam Vital Signs Vital Sign - Last 12Hours 04/26/17 13:00 Temp 98.9 Pulse 101 Resp 20 B/P (MAP) 127/66 Pulse Ox 97 O2 Delivery Room Air Capillary Refill : General Appearance: WD/WN, no apparent distress Eyes: Bilateral Eye Normal Inspection HEENT: normal ENT inspection Neck: full range of motion, normal inspection Respiratory: chest non-tender, normal breath sounds, no respiratory distress, no accessory muscle use Cardiovascular: regular rate, rhythm, no murmur Gastrointestinal: non tender, soft Assessment/Plan Assessment/Plan Admission Diagnosis/Plan left pprsc-kgp-zqbl amputation. Diabetes. Hypertension. Former smoker. Weakness Clinical Quality Measures DVT/VTE Risk/Contraindication: Risk Factor Score Per Nursin RFS Level Per Nursing on Admit: 4+=Very High TERRI TAVAREZ DO Apr 29, 2017 08:48
[2017-04-29] MEDS ORDERED: MAGNESIUM CITRATE 300 ML BTL PO NR (09:00)
[2017-04-29] MEDS: DOCUSATE SODIUM 100 MG (COLACE) CAP PO SCH ×2 (09:10→20:28)
[2017-04-29] MEDS: DIGOXIN 0.25 MG (LANOXIN) TAB PO SCH (09:10)
[2017-04-29] MEDS: AMITRIPTYLINE 25 MG (ELAVIL) TAB PO SCH ×2 (09:10→20:28)
[2017-04-29] MEDS: lisINopril 10 MG (PRINIVIL) TAB PO SCH (09:10)
[2017-04-29] MEDS: FINASTERIDE (PROSCAR) 5 MG TAB PO SCH (09:10)
[2017-04-29] MEDS: CARVEDILOL 12.5 MG (COREG) TABLET PO SCH ×2 (09:10→20:28)
[2017-04-29] MEDS: ASPIRIN E.C. 325 MG (ECOTRIN) TABLET PO SCH (09:10)
--- NOTE | 2017-04-29 10:04 | Physical Therapy Daily Note ---
PT Daily Note-Current Subjective Pt. states he is feeling confident that he can whip this "again'. c/o pain left residual limb 4/10 with exercise. Pain Numeric Pain Scale: 4 Location: Left Location Body Site: Thigh Pain Description: Throbbing Mental Status Patient Orientation: Normal For Age Transfers Functional [place] Measure 0=Not Assessed/NA 4=Minimal Assistance 1=Total Assistance 5=Supervision or Setup 2=Maximal Assistance 6=Modified [place] 3=Moderate Assistance 7=Complete IndependenceIRFPAI Quality Coding Scale 6 Independent with activity with or without an assistive device 5 Patient requires set up or clean up by helper. Patient completes activity by themselves 4 Supervision or touching assist (CGA). [place] provide cues , steadying assist 3 The helper provides less than half the effort to complete the activity 2 The helper provides more than half the effort to complete the activity 1 Dependent. The helper does all the effort to complete an activity 7 Patient refused to complete or attempt activity 9 The patient did not perform the activity before the current illness or injury 88 Not attempted due to Medical conditions or safety concerns Transfers (B, C, W/C) (FIM): 5 Scootin Rollin Supine to/from Sit: 6 Sit to/from Stand: 5 Bed to/from Chair: 5 Gait Training Does the Patient Walk?: Yes Gait (FIM): 1 Distance (FIM): 6=563-36 ft (50,50,35) Gait Level of Assist: 4 Gait Persons Needed: 1 Gait Assistive Device: FWW slow, careful Wheelchair Training Does the Pt Use a Wheelchair?: Yes Wheelchair (FIM): 6 Wheelchair Distance: 3=150 ft (x2) Wheelchair Level of Assist: 6 Wheel 50 ft with 2 turns (QC): 6 Type of Wheelchair: Manual Exercises Supine Ex: Bridging, Ankle pumps, Quad Set, Rolling, Glut sets, Heel Slides, Short Arc Quads, Scooting, Straight leg raise, Hip abd/add Supine Reps: 12 sup, side and prone with emphasis on hip extension , pt. getting to nuetral Assessment Current Status: Good Progress PT Short Term Goals Short Term Goals Time Frame: May 03, 2017 Transfers (B,C,W/C) (FIM): 5 Gait (FIM): 2 Gait Distance Comment: 100' Gait Level of Assist: 5 Gait Assistive Device: FWW Wheelchair Distance: 150'x2 PT Health Policy Manager Goals [facility] Goals PT Health Policy Manager Goals Time Frame: May 17, 2017 Transfers (B,C,W/C) (FIM): 6 Sit to Lying (QC): 6 Lying-Sitting on Side/Bed(QC): 6 Sit to Stand (QC): 6 Rollin Roll Left to Right (QC): 6 Chair/Dgr-cu-Ofidr Xfer(QC): 6 Gait (FIM): 5 Distance: 150' Walk 10 feet (QC): 4 Walk 10ft-Uneven Surface(QC): 4 Walk 50ft with 2 Turns (QC): 4 Walk 150 ft (QC): 4 Gait Level of Assist: 5 Gait Assistive Device: FWW PT Plan Treatment/Plan Treatment Plan: Continue Plan of Care Treatment Plan: Bed Mobility, Education, Functional Activity Miranda, Functional Strength, Group Therapy, Gait, Safety, Therapeutic Exercise, Transfers Treatment Duration: May 17, 2017 Frequency: At least 5-7 days/Wk (IRF) Estimated Hrs Per Day: 1.5 hours per day Patient and/or Family Agrees t: Yes Safety Risks/Education Patient Education: Gait Training, Transfer Techniques, Correct Positioning, W/ C Management, Disease Process, Safety Issues Teaching Recipient: Patient Teaching Methods: Demonstration, Discussion Response to Teaching: Verbalize Understanding, Return Demonstration, Reinforcement Needed Time/GCodes Time In: 900 Time Out: 1000 Total Billed Treatment Time: 60 Total Billed Treatment 1,GT25m,WC15m,EX20m G Codes Necessary: DIONNE Martínez [employer] Apr 29, 2017 10:04
--- NOTE | 2017-04-29 10:07 | Occupational Ther Daily Note ---
OT Current Status-Daily Note Subjective Pt sitting EOB, agrees to treatment. Pt reports 7/10 pain in left LE Mental Status/Objective Functional [place] Measure 0=Not Assessed/NA 4=Minimal Assistance 1=Total Assistance 5=Supervision or Setup 2=Maximal Assistance 6=Modified [place] 3=Moderate Assistance 7=Complete [place] ADL-Treatment Pt declined bathing today and is already dressed this morning. Pt transferred EOB to w/c with close supervision. Grooming tasks completed seated at sink. Pt washed face and completed oral care with modified independence. Transfer w/c<-> toilet with CGA using grab bar for balance and safety. Pt able to pull pants down and manage hygiene. Requires CGA for standing balance when pulling pants up. Washed hands at sink with modified independence. Functional [place] Measure 0=Not Assessed/NA 4=Minimal Assistance 1=Total Assistance 5=Supervision or Setup 2=Maximal Assistance 6=Modified [place] 3=Moderate Assistance 7=Complete IndependenceIRFPAI Quality Coding Scale 6 Independent with activity with or without an assistive device 5 Patient requires set up or clean up by helper. Patient completes activity by themselves 4 Supervision or touching assist (CGA). [place] provide cues , steadying assist 3 The helper provides less than half the effort to complete the activity 2 The helper provides more than half the effort to complete the activity 1 Dependent. The helper does all the effort to complete an activity 7 Patient refused to complete or attempt activity 9 The patient did not perform the activity before the current illness or injury 88 Not attempted due to Medical conditions or safety concerns Grooming (FIM): 6 Oral Hygiene (QC): 6 Toileting (FIM): 4 Toileting Hygiene (QC): 4 Toilet/Commode Transfer (FIM): 4 Toilet Transfer (QC): 4 Other Treatment Pt performed w/c mobility to therapy gym without assistance. Arm bike x12 minutes to increase overall strength and activity tolerance needed for functional tasks. Pt completed activity with moderate resistance and slow pace. No rest breaks needed. Bilateral UE exercises to promote increased strength needed for ADLs and transfers. Pt completed shoulder flexion, forward press, biceps curls, and wrist flex/ext x20 reps with 1# dowel dina. Rest breaks between exercises. W/c pushups x10 reps to increase strength for transfers. Pt returned to room, transferred to EOB with close supervision. Pt sitting EOB with needs met after session. OT Short Term Goals Short Term Goals Time Frame: May 03, 2017 Lower Body Dressing(FIM): 5 Toileting(FIM): 5 Transfers (B,C,W/C) (FIM): 5 Toilet/Commode Transfer(FIM): 5 Shower Transfer(FIM): 5 Additional Short Term Goals: 1-Demonstrate ADL Tasks, 2-Verbalize Understanding 1=Demonstrate adherence to instructed precautions during ADL tasks. 2=Patient will verbalize/demonstrate understanding of assistive devices/ modifications for ADL. 3=Patient will improve strength/tolerance for activity to enable patient to perform ADL's. OT Microbiology Quality Control Technician Goals Senior Living Goals Time Frame: May 17, 2017 Eating (FIM): 6 Eating (QC): 6 Groomin Oral Hygiene (QC): 6 Bathing(FIM): 5 Shower/Bathe Self (QC): 5 Upper Body Dressing(FIM): 6 Upper Body Dressing (QC): 6 Lower Body Dressing(FIM): 6 Lower Body Dressing (QC): 6 On/Off Footwear (QC): 6 Toileting(FIM): 6 Toileting Hygiene (QC): 6 Toilet/Commode Transfer(FIM): 6 Toilet/Commode Transfer (QC): 6 Shower Transfer(FIM): 5 Additional Goals: 1-Demonstrate ADL Tasks, 2-Verbalize Understanding, 3- ImproveStrength/Miranda 1=Demonstrate adherence to instructed precautions during ADL tasks. 2=Patient will verbalize/demonstrate understanding of assistive devices/ modifications for ADL. 3=Patient will improve strength/tolerance for activity to enable patient to perform ADL's. OT Education/Plan Problem List/Assessment Pt s/p left AKA with decreased ADL functioning, mobility, strength, and activity tolerance. Pt to benefit from skilled OT intervention for ADL training , transfers, strengthening, and home safety education to maximize level of function and allow safe return home. Discharge Recommendations Plan/Recommendations: Continue POC Treatment Plan/Plan of Care Patient would benefit from OT for education, treatment and training to promote independence in ADL's, mobility, safety and/or upper extremity function for ADL' s. Plan of Care: ADL Retraining, Functional Mobility, Group Exercise/Act as Ind, UE Funct Exercise/Act Treatment Duration: May 17, 2017 Frequency: At least 5-7 days/Wk (IRF) Estimated Hrs Per Day: 1.5 hours per day Agreement: Yes Rehab Potential: Fair Time/GCodes Start Time: 08:00 Stop Time: 09:00 Total Time Billed (hr/min): 60 Billed Treatment Time 1 visit, ADL(20minutes), EXx3(40minutes) DARIO RUCKER OT Apr 29, 2017 10:07
[2017-04-29 13:06] VITALS: BP 145/75
[2017-04-29] MEDS ORDERED: HYDR-3820 PO (15:17)
[2017-04-29] MEDS ORDERED: HYDR-3922 PO (15:17)
[2017-04-29] MEDS ORDERED: INSU100I29 SQ ×2 (15:17)
[2017-04-29] MEDS ORDERED: DOCU-143 PO ×2 (15:17)
[2017-04-29] MEDS ORDERED: PAMI30VI8 SQ ×2 (15:17)
[2017-04-29] MEDS ORDERED: DIGO250T PO (15:17)
[2017-04-29] MEDS ORDERED: METF1000 PO (15:17)
[2017-04-29] MEDS ORDERED: EXEN2PEN SQ ×2 (15:17)
[2017-04-29] MEDS ORDERED: GLIP10TA13 PO ×2 (15:17)
[2017-04-29] MEDS ORDERED: FINA5TAB6 PO (15:17)
[2017-04-29] MEDS ORDERED: CEFE1VIA4 IV (15:18)
--- NOTE | 2017-04-29 15:53 | Therapy Group Daily Note ---
Therapy Daily Group Note Patient Education Topic Other List Below (pain) Exercises LE Seated Exercise, UE Exercise, Other (breathing) Other/Notes Pt maneuvered w/c to OT/PT group. OT/PT group consisted of introductions (name , place living, what do you do to relax), speaker for pain education, breathing techniques and UE/LE seated exercises. Pt was attentive throughout group. Contributed to discussions by giving personal examples of how to work through pain. Pt was appropriate with introductions and interactions with other group members. Pt verbalized understanding of pain education. Pt was able to complete breathing techniques appropriately. Able to complete UE/LE seated exercises. After therapy, pt sitting in w/c in room. Call light/phone in reach. All needs met in room. Start Time: 13:00 Stop Time: 14:05 Total Billed Treatment Time: 65 Total Billed Treatment 1-GRP DARA LAZCANO Apr 29, 2017 15:53
[2017-04-29 18:36] VITALS: BP 141/73
--- NOTE | 2017-04-29 19:42 | PM & R (SOAP) Progress Note ---
Subjective Time Seen by Provider: 19:15 Subjective/Events-last exam Patient was seen in his room this evening Contacted by RN over weekend re patients c/o constipation Meds adjusted and patient had BM today Patient SBA for transfers.Appreciate DR stevens note Review of Systems Gastrointestinal: Constipation Musculoskeletal: leg pain Objective Exam Last Set of Vital Signs Vital Signs Date Time Temp Pulse Resp B/P (MAP) Pulse Ox O2 Delivery O2 Flow Rate FiO2 04/29/17 18:36 98.0 88 18 141/73 98 Room Air Capillary Refill : I&O Intake and Output 04/29/17 00:00 Intake Total 1122 ml Balance 1122 ml Intake Oral 1122 ml # Voids 7 General: Alert, Oriented X3, Cooperative, No Acute Distress HEENT: Atraumatic, PERRLA, Mucous Memb Moist/[place] Neck: Supple, No JVD Lungs: Clear to Auscultation Heart: Regular Rate Abdomen: Normal Bowel Sounds, Soft, No Tenderness Extremities: Other (no edema rt leg Left AKA wrapped with minimal tenderness) Skin: Other (residual limb wrapped) Neuro: Other (Functional strength for transfers and function at W/C level of function) Psych/Mental Status: Mental Status NL Results Lab Laboratory Tests 04/26/17 20:44: Glucometer 83 04/27/17 06:07: White Blood Count 7.7, Red Blood Count 4.10L, Hemoglobin 11.1L, Hematocrit 34L, Mean Corpuscular Volume 82, Mean Corpuscular Hemoglobin 27, Mean Corpuscular Hemoglobin Concent 33, Red Cell Distribution Width 14.2, Platelet Count 449H, Mean Platelet Volume 9.5, Neutrophils (%) (Auto) 65, Lymphocytes (%) (Auto) 17, Monocytes (%) (Auto) 12, Eosinophils (%) (Auto) 7, Basophils (%) (Auto) 0, Neutrophils # (Auto) 5.0, Lymphocytes # (Auto) 1.3, Monocytes # (Auto) 0.9, Eosinophils # (Auto) 0.5H, Basophils # (Auto) 0.0, Sodium Level 135, Potassium Level 5.0, Chloride Level 104, Carbon Dioxide Level 22, Anion Gap 9, Blood Urea Nitrogen 27H, Creatinine 1.18, Estimat Glomerular Filtration Rate > 60, BUN/ Creatinine Ratio 23, Glucose Level 92, Calcium Level 9.8, Total Bilirubin 0.7, Aspartate Amino Transf (AST/SGOT) 11, Alanine Aminotransferase (ALT/SGPT) 16, Alkaline Phosphatase 61, Total Protein 6.9, Albumin 3.2 04/27/17 06:11: Glucometer 93 04/27/17 11:20: Glucometer 118H 04/27/17 16:08: Glucometer 113H 04/27/17 20:33: Glucometer 188H 04/27/17 21:56: Glucometer 137H 04/28/17 05:57: Glucometer 79 04/28/17 11:01: Glucometer 157H 04/28/17 16:17: Glucometer 117H 04/28/17 20:40: Glucometer 167H 04/29/17 04:51: Glucometer 56*L 04/29/17 05:34: Glucometer 124H 04/29/17 11:32: Glucometer 77 04/29/17 17:17: Glucometer 119H Assessment/Plan Assessment s/p left AKA for non healing wound left BKA IDDM HTN controlled Chronic back pain s/p Lumbar spine surgery Plan Continue PT/OT/Pain management and wound care ST has signed off Monitor Blood pressure and Accuchecks and adjust meds as needed. Team Conference 05/01/17 JOHNIE RANDALL MD Apr 29, 2017 19:42
--- NOTE | 2017-04-29 19:46 | Individualized Plan of Care ---
Individualized Plan of Care Rehab Nursing IPOC Order Admission Date Apr 26, 2017 at 12:58 Current Orders Orders Hydralazine Tablet (Apresoline Tablet) (04/29/17 09:00) Lisinopril Tablet (Zestril Tablet) (04/29/17 09:00) Magnesium Citrate Oral Soln (Citrate Of (04/29/17 09:00) Patient Visit (04/29/17 ) Gait Training, Ea 15 Min (04/29/17 ) Wheelchair Mgmt/Propulsn 15min (04/29/17 ) Exercise Therap, Ea 15 Min (04/29/17 ) Rehab Nursing Orders: Diseage Management, Edu in Press Rel Techn, Hydration Management, Nutrition Management, Pain Management Other Nursing Orders: Bowel program adjusted for postop constipation PT IPOC Problem List: Activity Tolerance, Functional Strength, Safety, Balance, Gait, Transfer, Bed Mobility, ROM Treatment Plan: Continue Plan of Care Bed Mobility, Education, Functional Activity Miranda, Functional Strength, Group Therapy, Gait, Safety, Therapeutic Exercise, Transfers Treatment Duration: May 17, 2017 Frequency: At least 5-7 days/Wk (IRF) Estimated Hrs Per Day: 1.5 hours per day OT IPOC Problems: Decreased Activ Tolerance, Decreased UE Strength, Dependent Transfers , Impaired Funct Balance, Impaired Self-Care Skills OT Problems Pt s/p left AKA with decreased ADL functioning, mobility, strength, and activity tolerance. Pt to benefit from skilled OT intervention for ADL training , transfers, strengthening, and home safety education to maximize level of function and allow safe return home. Plan of Care: ADL Retraining, Functional Mobility, Group Exercise/Act as Ind, UE Funct Exercise/Act Treatment Duration: May 17, 2017 Frequency: At least 5-7 days/Wk (IRF) Estimated Hrs Per Day: 1.[address] IPOC Speech Therapy Treatment Plan: Discontinue ST Frequency: Modified Program (IRF) Estimated Hrs Per Day: .25 hour per day (The patient will not receive skilled speech pathology services.) Physician IPOC Medical Issues being managed closely and that require the 24 hour availability of a physician:Pain management postop constipation HTN DM Medical Issues: Bowel/Bladder Function, DVT Prophylaxis, Falls Precautions, Fluid/Electrolyte/Nutrition Balance, Infection Protection, Pain Management, Weight Bearing Precautions, Wound Care, Other (List) (as per above) Brief Synthesis of Preadmission Screen, Post-Admission Evaluation, and Therapy Evaluations:71 yo male s/p Left BKA who had been Modified Independent at the w/ c level of function and living with spouse in [place] who developed wound rsidual limb requiring Left AKA with DR Salgado at [facility] Referred to [facility] here for amputee rehab Medical Prognosis: good Anticipated Length of Stay: 05/17/17 Rehab Goals Modified Independent to supervision for adls and mobility skills at the w/c level of function Anticipated discharge destinat: Home with spouse with [facility] JOHNIE RANDALL MD Apr 29, 2017 19:46
[2017-04-29] MEDS: POLYETHYLENE GLYCOL 17 GM (MIRALAX) PACK PO SCH (20:28)
[2017-04-30] MEDS: HYDROcodone/APAP 10 MG/325 MG (LORTAB) TAB PO PRN ×3 (01:08→21:25)
[2017-04-30] MEDS: inSUlin ASPART (NovoLOG) 1 UNIT/0.01 ML (CHARGE PER UNIT) SC SCH ×4 (05:56→22:05)
[2017-04-30 05:59] VITALS: BP 149/86
[2017-04-30] MEDS: metFORMIN 500 MG (GLUCOPHAGE) TAB PO SCH ×2 (06:11→16:45)
[2017-04-30] MEDS: glipiZIDE 5 MG (GLUCOTROL) TAB PO SCH ×2 (06:11→16:45)
[2017-04-30] MEDS: DOCUSATE SODIUM 100 MG (COLACE) CAP PO SCH ×2 (06:34→21:25)
[2017-04-30] MEDS ORDERED: LISI40TA PO (08:28)
[2017-04-30] MEDS: lisINopril 10 MG (PRINIVIL) TAB PO SCH (08:33)
[2017-04-30] MEDS: FINASTERIDE (PROSCAR) 5 MG TAB PO SCH (08:33)
[2017-04-30] MEDS: DIGOXIN 0.25 MG (LANOXIN) TAB PO SCH (08:33)
[2017-04-30] MEDS: CARVEDILOL 12.5 MG (COREG) TABLET PO SCH ×2 (08:34→21:25)
[2017-04-30] MEDS: AMITRIPTYLINE 25 MG (ELAVIL) TAB PO SCH ×2 (08:34→21:25)
[2017-04-30] MEDS: ASPIRIN E.C. 325 MG (ECOTRIN) TABLET PO SCH (08:34)
--- NOTE | 2017-04-30 08:47 | Progress Note (SOAP) ---
Subjective Time Seen by Provider: 08:45 Subjective/Events-last exam left AKA. Diabetes. Hypertension. Patient states she's feeling better today Objective Exam Vital Signs Date Time Temp Pulse Resp B/P (MAP) Pulse Ox O2 Delivery O2 Flow Rate FiO2 04/30/17 05:59 98.7 94 16 149/86 97 Room Air 04/29/17 18:36 98.0 88 18 141/73 98 Room Air 04/29/17 13:06 91 145/75 I & O 04/30/17 07:00 Intake Total 2480 ml Balance 2480 ml Capillary Refill : General Appearance: No Apparent Distress, Thin HEENT: Normal ENT Inspection Neck: Full Range of Motion, Normal Inspection Respiratory: Chest Non Tender, No Accessory Muscle Use, No Respiratory Distress Results Lab Laboratory Tests 04/29/17 11:32: Glucometer 77 04/29/17 17:17: Glucometer 119H 04/29/17 21:09: Glucometer 100 04/30/17 05:42: Glucometer 63L 04/30/17 06:28: Glucometer 93 Assessment/Plan Assessment/Plan Assess & Plan/Chief Complaint left fmznd-mso-xgdd amputation. Diabetes. Hypertension. Former smoker. Weakness. . . Left odmxh-zxq-tduo amputation. . Diabetes. Hypertension. Patient put on medicines he was on previously for his hypertension Clinical Quality Measures DVT/VTE Risk/Contraindication: Risk Factor Score Per Nursin RFS Level Per Nursing on Admit: 4+=Very High TERRI TAVAREZ DO Apr 30, 2017 08:47
[2017-04-30] MEDS ORDERED: lisINopril 10 MG (PRINIVIL) TAB PO NR (09:36)
--- NOTE | 2017-04-30 10:03 | Physical Therapy Daily Note ---
PT Daily Note-Current Subjective Pt laying Supine in bed upon arrival. Pt agrees to PT. Pain Numeric Pain Scale: 7 Location: Left Location Body Site: Thigh Pain Description: Ache Mental Status Patient Orientation: Person, Place, Time, Situation Transfers Functional [place] Measure 0=Not Assessed/NA 4=Minimal Assistance 1=Total Assistance 5=Supervision or Setup 2=Maximal Assistance 6=Modified [place] 3=Moderate Assistance 7=Complete IndependenceIRFPAI Quality Coding Scale 6 Independent with activity with or without an assistive device 5 Patient requires set up or clean up by helper. Patient completes activity by themselves 4 Supervision or touching assist (CGA). [place] provide cues , steadying assist 3 The helper provides less than half the effort to complete the activity 2 The helper provides more than half the effort to complete the activity 1 Dependent. The helper does all the effort to complete an activity 7 Patient refused to complete or attempt activity 9 The patient did not perform the activity before the current illness or injury 88 Not attempted due to Medical conditions or safety concerns Scootin Rollin Roll Left to Right (QC): 6 Supine to/from Sit: 6 Sit to/from Stand: 5 Sit to Lying (QC): 5 Sit to Stand (QC): 5 Weight Bearing Weight Bearing Restriction: Full Weight Bearing Location Restriction: R LE Pt has LKA. Gait Training Does the Patient Walk?: Yes Distance (FIM): 3=150 ft Distance: 175' Walk 10 feet (QC): 5 Walk 50 ft with 2 Turns(QC): 5 Walk 150 ft (QC): 5 Gait Level of Assist: 5 Gait Persons Needed: 1 Gait Assistive Device: FWW Pt is slow but steady, no LOB. Pt is a hop to due to amputation. Wheelchair Training Does the Pt Use a Wheelchair?: Yes Wheelchair Distance: 0=132-94 ft Distance: 75' Wheelchair Level of Assist: 6 Wheel 50 ft with 2 turns (QC): 6 Type of Wheelchair: Manual Exercises Seated Therapy Exercises: Ankle pumps, Sit to stand (5), Long arc quads, Hip flexion, Kicking activity Seated Reps: 15 NuStep Minutes: 10 NuStep Workload: 2 Treatments Pt transferred Supine to EOB to [facility] into [facility]. Pt ambulated using FWW at close SBA-CGA. Pt used NuStep for 10m at Workload 2 as well as Seated Ex. Pt propelled WCH back to room. Pt returned to room to rest at EOB with all needs met at end of tx. Assessment Current Status: Good Progress Pt is making improvement with independence and safety of mobility and transfers. PT Short Term Goals Short Term Goals Time Frame: May 03, 2017 Transfers (B,C,W/C) (FIM): 5 Gait (FIM): 2 Gait Distance Comment: 100' Gait Level of Assist: 5 Gait Assistive Device: FWW Wheelchair Distance: 150'x2 PT Assisted Goals Assisted Goals PT Assisted Goals Time Frame: May 17, 2017 Transfers (B,C,W/C) (FIM): 6 Sit to Lying (QC): 6 Lying-Sitting on Side/Bed(QC): 6 Sit to Stand (QC): 6 Rollin Roll Left to Right (QC): 6 Chair/Xuf-bj-Ljgjp Xfer(QC): 6 Gait (FIM): 5 Distance: 150' Walk 10 feet (QC): 4 Walk 10ft-Uneven Surface(QC): 4 Walk 50ft with 2 Turns (QC): 4 Walk 150 ft (QC): 4 Gait Level of Assist: 5 Gait Assistive Device: FWW PT Plan Problem List Problem List: Activity Tolerance, Functional Strength, Balance, Gait Treatment/Plan Treatment Plan: Continue Plan of Care Treatment Plan: Bed Mobility, Education, Functional Activity Miranda, Functional Strength, Group Therapy, Gait, Safety, Therapeutic Exercise, Transfers Treatment Duration: May 17, 2017 Frequency: At least 5-7 days/Wk (IRF) Estimated Hrs Per Day: 1.5 hours per day Patient and/or Family Agrees t: Yes Safety Risks/Education Patient Education: Gait Training, Transfer Techniques, Correct Positioning, Safety Issues Teaching Recipient: Patient Teaching Methods: Discussion Response to Teaching: Verbalize Understanding Time/GCodes Time In: 915 Time Out: 1015 Total Billed Treatment Time: 60 Total Billed Treatment visit, GT (15m), WCH (15m) & EX x2 (30m) VADIM LOPEZ PTA Apr 30, 2017 10:02
--- NOTE | 2017-04-30 12:47 | Occupational Ther Daily Note ---
OT Current Status-Daily Note Subjective Pt sitting w/c finishing cleaning up for the day. Pt agreed to therapy. No c/ o pain. Pt was concerned about swelling on L stump. Reported this to PT, nrsg and physician. Mental Status/Objective Patient Orientation: Person, Place, Time, Situation Functional [place] Measure 0=Not Assessed/NA 4=Minimal Assistance 1=Total Assistance 5=Supervision or Setup 2=Maximal Assistance 6=Modified [place] 3=Moderate Assistance 7=Complete [place] ADL-Treatment Functional [place] Measure 0=Not Assessed/NA 4=Minimal Assistance 1=Total Assistance 5=Supervision or Setup 2=Maximal Assistance 6=Modified [place] 3=Moderate Assistance 7=Complete IndependenceIRFPAI Quality Coding Scale 6 Independent with activity with or without an assistive device 5 Patient requires set up or clean up by helper. Patient completes activity by themselves 4 Supervision or touching assist (CGA). [place] provide cues , steadying assist 3 The helper provides less than half the effort to complete the activity 2 The helper provides more than half the effort to complete the activity 1 Dependent. The helper does all the effort to complete an activity 7 Patient refused to complete or attempt activity 9 The patient did not perform the activity before the current illness or injury 88 Not attempted due to Medical conditions or safety concerns Other Treatment Pt completed 4 UE shldr and tricep exercises with 3# wt, 3 sets 10 reps. Then 6 # wt for bicep curls 3 sets 10 reps. Pt completed resistive hand manufacturing process technician exercises , 3 sets 10 reps. Strengthening and endurance exercises for daily functional tasks. Pt tolerated exercises well, did take long recovery breaks between sets. After therapy, pt sitting in w/c in room with call light/phone in reach. All needs met in room. OT Short Term Goals Short Term Goals Time Frame: May 03, 2017 Lower Body Dressing(FIM): 5 Toileting(FIM): 5 Transfers (B,C,W/C) (FIM): 5 Toilet/Commode Transfer(FIM): 5 Shower Transfer(FIM): 5 Additional Short Term Goals: 1-Demonstrate ADL Tasks, 2-Verbalize Understanding 1=Demonstrate adherence to instructed precautions during ADL tasks. 2=Patient will verbalize/demonstrate understanding of assistive devices/ modifications for ADL. 3=Patient will improve strength/tolerance for activity to enable patient to perform ADL's. OT Entertainment & Media Correspondent Goals [place] Goals Time Frame: May 17, 2017 Eating (FIM): 6 Eating (QC): 6 Groomin Oral Hygiene (QC): 6 Bathing(FIM): 5 Shower/Bathe Self (QC): 5 Upper Body Dressing(FIM): 6 Upper Body Dressing (QC): 6 Lower Body Dressing(FIM): 6 Lower Body Dressing (QC): 6 On/Off Footwear (QC): 6 Toileting(FIM): 6 Toileting Hygiene (QC): 6 Toilet/Commode Transfer(FIM): 6 Toilet/Commode Transfer (QC): 6 Shower Transfer(FIM): 5 Additional Goals: 1-Demonstrate ADL Tasks, 2-Verbalize Understanding, 3- ImproveStrength/Miranda 1=Demonstrate adherence to instructed precautions during ADL tasks. 2=Patient will verbalize/demonstrate understanding of assistive devices/ modifications for ADL. 3=Patient will improve strength/tolerance for activity to enable patient to perform ADL's. OT Education/Plan Problem List/Assessment Pt s/p left AKA with decreased ADL functioning, mobility, strength, and activity tolerance. Pt to benefit from skilled OT intervention for ADL training , transfers, strengthening, and home safety education to maximize level of function and allow safe return home. Discharge Recommendations Plan/Recommendations: Continue POC Treatment Plan/Plan of Care Patient would benefit from OT for education, treatment and training to promote independence in ADL's, mobility, safety and/or upper extremity function for ADL' s. Plan of Care: ADL Retraining, Functional Mobility, Group Exercise/Act as Ind, UE Funct Exercise/Act Treatment Duration: May 17, 2017 Frequency: At least 5-7 days/Wk (IRF) Estimated Hrs Per Day: 1.5 hours per day Agreement: Yes Rehab Potential: Fair Time/GCodes Start Time: 08:00 Stop Time: 09:00 Total Time Billed (hr/min): 60 Billed Treatment Time 1 visit-EX 4 (60 min) DARA LAZCANO Apr 30, 2017 12:47
--- NOTE | 2017-04-30 13:21 | PM & R (SOAP) Progress Note ---
Subjective Time Seen by Provider: 08:00 Subjective/Events-last exam Patient was seen in his room this AM Patient SBA for transfers pain control adequate Accuchecks running low Objective Exam Last Set of Vital Signs Vital Signs Date Time Temp Pulse Resp B/P (MAP) Pulse Ox O2 Delivery O2 Flow Rate FiO2 04/30/17 05:59 98.7 94 16 149/86 97 Room Air Capillary Refill : I&O Intake and Output 04/30/17 00:00 Intake Total 2350 ml Balance 2350 ml Intake Oral 2350 ml # Voids 5 # Bowel Movements 2 General: Alert, Oriented X3, Cooperative, No Acute Distress HEENT: Atraumatic, PERRLA, Mucous Memb Moist/[place] Neck: Supple, No JVD Lungs: Clear to Auscultation Heart: Regular Rate Abdomen: Normal Bowel Sounds, Soft, No Tenderness Extremities: Other (no edema rt leg Left AKA wrapped with minimal tenderness) Skin: Other (residual limb wrapped) Neuro: Other (Functional strength for transfers and function at W/C level of function) Psych/Mental Status: Mental Status NL Results Lab Laboratory Tests 04/27/17 16:08: Glucometer 113H 04/27/17 20:33: Glucometer 188H 04/27/17 21:56: Glucometer 137H 04/28/17 05:57: Glucometer 79 04/28/17 11:01: Glucometer 157H 04/28/17 16:17: Glucometer 117H 04/28/17 20:40: Glucometer 167H 04/29/17 04:51: Glucometer 56*L 04/29/17 05:34: Glucometer 124H 04/29/17 11:32: Glucometer 77 04/29/17 17:17: Glucometer 119H 04/29/17 21:09: Glucometer 100 04/30/17 05:42: Glucometer 63L 04/30/17 06:28: Glucometer 93 04/30/17 11:04: Glucometer 60*L Assessment/Plan Assessment s/p left AKA for non healing wound left BKA IDDM-accucheks running low HTN controlled Chronic back pain s/p Lumbar spine surgery Plan Continue PT/OT/Pain management and wound care ST has signed off Monitor Blood pressure and Accuchecks and adjust meds as needed. Team Conference tomorrow 05/01/17 F/U with DR Larose re DM management JOHNIE RANDALL MD Apr 30, 2017 13:21
--- NOTE | 2017-04-30 15:12 | Therapy Group Daily Note ---
Therapy Daily Group Note Patient Education Topic Home Safety Other/Notes Pt maneuvered w/c to therapy gym for OT/PT group. OT/PT group consisted of introductions (name, place living, what you do to make things easier/safer at home), ARU weekly meeting description, and home safety education and discussion. Education on stair safety with FWW and/or rails then tripping hazards and solutions in living areas and bathroom. Pt contributed to discussions with accurate information. After group, pt sitting in w/c in room with call light/phone in reach. All needs met in room. Start Time: 13:00 Stop Time: 14:15 Total Billed Treatment Time: 75 Total Billed Treatment 1-GRP DARA LAZCANO Apr 30, 2017 15:12
[2017-04-30] MEDS ORDERED: lisINopril 10 MG (PRINIVIL) TAB ONE (16:38)
[2017-04-30 19:19] VITALS: BP 174/72
[2017-04-30] MEDS: POLYETHYLENE GLYCOL 17 GM (MIRALAX) PACK PO SCH (21:26)
[2017-05-01] MEDS: HYDROcodone/APAP 10 MG/325 MG (LORTAB) TAB PO PRN ×4 (02:20→18:12)
[2017-05-01] MEDS: inSUlin ASPART (NovoLOG) 1 UNIT/0.01 ML (CHARGE PER UNIT) SC SCH ×4 (05:58→21:53)
[2017-05-01 06:35] VITALS: BP 143/81
[2017-05-01] MEDS: glipiZIDE 5 MG (GLUCOTROL) TAB PO SCH (06:40)
[2017-05-01] MEDS: metFORMIN 500 MG (GLUCOPHAGE) TAB PO SCH ×2 (06:46→17:45)
--- NOTE | 2017-05-01 07:48 | PM & R (SOAP) Progress Note ---
Subjective Time Seen by Provider: 07:35 Subjective/Events-last exam Patient was seen in his room this AM Case discussed with Night RN Accvianey down this AM DR Larose has adjusted Insulin.Patient SBA for transfers Objective Exam Last Set of Vital Signs Vital Signs Date Time Temp Pulse Resp B/P (MAP) Pulse Ox O2 Delivery O2 Flow Rate FiO2 05/01/17 06:35 99.1 85 18 143/81 96 Room Air Capillary Refill : I&O Intake and Output 05/01/17 00:00 Intake Total 1280 ml Balance 1280 ml Intake Oral 1280 ml # Voids 6 # Bowel Movements 2 General: Alert, Oriented X3, Cooperative, No Acute Distress HEENT: Atraumatic, PERRLA, Mucous Memb Moist/[place] Neck: Supple, No JVD Lungs: Clear to Auscultation Heart: Regular Rate Abdomen: Normal Bowel Sounds, Soft, No Tenderness Extremities: Other (no edema rt leg Left AKA wrapped with minimal tenderness) Skin: Other (residual limb wrapped) Neuro: Other (Functional strength for transfers and function at W/C level of function) Psych/Mental Status: Mental Status NL Results Lab Laboratory Tests 04/28/17 11:01: Glucometer 157H 04/28/17 16:17: Glucometer 117H 04/28/17 20:40: Glucometer 167H 04/29/17 04:51: Glucometer 56*L 04/29/17 05:34: Glucometer 124H 04/29/17 11:32: Glucometer 77 04/29/17 17:17: Glucometer 119H 04/29/17 21:09: Glucometer 100 04/30/17 05:42: Glucometer 63L 04/30/17 06:28: Glucometer 93 04/30/17 11:04: Glucometer 60*L 04/30/17 16:17: Glucometer 64L 04/30/17 17:02: Glucometer 66L 04/30/17 19:19: Glucometer 180H 04/30/17 21:54: Glucometer 167H 05/01/17 05:34: Glucometer 100 Assessment/Plan Assessment s/p left AKA for non healing wound left BKA IDDM-accucheks running low-Insulin adjusted HTN controlled Chronic back pain s/p Lumbar spine surgery Plan Continue PT/OT/Pain management and wound care ST has signed off Monitor Blood pressure and Accuchecks and adjust meds as neede F/U with DR Larose re DM management TEam Conference later today=See report for full functional update and POC and JOHNIE COOPER MD May 01, 2017 07:48
[2017-05-01] MEDS: DIGOXIN 0.25 MG (LANOXIN) TAB PO SCH (08:34)
[2017-05-01] MEDS: AMITRIPTYLINE 25 MG (ELAVIL) TAB PO SCH ×2 (08:34→20:29)
[2017-05-01] MEDS: FINASTERIDE (PROSCAR) 5 MG TAB PO SCH (08:34)
[2017-05-01] MEDS: CARVEDILOL 12.5 MG (COREG) TABLET PO SCH ×2 (08:34→20:29)
[2017-05-01] MEDS: ASPIRIN E.C. 325 MG (ECOTRIN) TABLET PO SCH (08:34)
[2017-05-01] MEDS: DOCUSATE SODIUM 100 MG (COLACE) CAP PO SCH ×2 (08:34→20:30)
[2017-05-01] MEDS: lisINopril 20 MG (ZESTRIL) TAB PO SCH (08:35)
--- NOTE | 2017-05-01 08:58 | Progress Note (SOAP) ---
Subjective Time Seen by Provider: 08:57 Subjective/Events-last exam left AKA. Diabetes. Patient hypoglycemic Objective Exam Vital Signs Date Time Temp Pulse Resp B/P (MAP) Pulse Ox O2 Delivery O2 Flow Rate FiO2 05/01/17 06:35 99.1 85 18 143/81 96 Room Air 04/30/17 19:19 98.7 108 16 174/72 99 I & O 05/01/17 07:00 Intake Total 850 ml Balance 850 ml Capillary Refill : General Appearance: No Apparent Distress, WD/WN Results Lab Laboratory Tests 04/30/17 11:04: Glucometer 60*L 04/30/17 16:17: Glucometer 64L 04/30/17 17:02: Glucometer 66L 04/30/17 19:19: Glucometer 180H 04/30/17 21:54: Glucometer 167H 05/01/17 05:34: Glucometer 100 Assessment/Plan Assessment/Plan Assess & Plan/Chief Complaint left mbvkh-jiu-neqq amputation. Diabetes. Hypertension. Former smoker. Weakness. . . Left lesun-jes-iwmt amputation. . Diabetes. Hypertension. Patient put on medicines he was on previously for his hypertension. . 05/01/17. Left iagsi-nlu-wxyl amputation. DIABETES> Clinical Quality Measures DVT/VTE Risk/Contraindication: Risk Factor Score Per Nursin RFS Level Per Nursing on Admit: 4+=Very High TERRI TAVAREZ DO May 01, 2017 08:58
--- NOTE | 2017-05-01 10:57 | Physical Therapy Daily Note ---
PT Daily Note-Current Subjective Patient in bed pre tx, agrees to PT, has pain of 4/10 in left residual limb. Appearance Patient in wheelchair post tx, in room. Patient has been made independent in his room, nurse notified. Mental Status Patient Orientation: Normal For Age Transfers Functional [place] Measure 0=Not Assessed/NA 4=Minimal Assistance 1=Total Assistance 5=Supervision or Setup 2=Maximal Assistance 6=Modified [place] 3=Moderate Assistance 7=Complete IndependenceIRFPAI Quality Coding Scale 6 Independent with activity with or without an assistive device 5 Patient requires set up or clean up by helper. Patient completes activity by themselves 4 Supervision or touching assist (CGA). [place] provide cues , steadying assist 3 The helper provides less than half the effort to complete the activity 2 The helper provides more than half the effort to complete the activity 1 Dependent. The helper does all the effort to complete an activity 7 Patient refused to complete or attempt activity 9 The patient did not perform the activity before the current illness or injury 88 Not attempted due to Medical conditions or safety concerns Transfers (B, C, W/C) (FIM): 6 Scootin Rollin Supine to/from Sit: 6 Sit to/from Stand: 6 Bed to/from Chair: 6 Gait Training Gait (FIM): 2 Distance: 50'x2 Gait Level of Assist: 5 Gait Persons Needed: 1 Gait Assistive Device: FWW Slow, careful ambulation, no LOB Wheelchair Training Does the Pt Use a Wheelchair?: Yes Wheelchair (FIM): 6 Distance: 150'x2 Type of Wheelchair: Manual Exercises Supine Ex: Bridging, Straight leg raise, Hip abd/add Supine Reps: 20 Seated Therapy Exercises: Hip flexion Seated Reps: 20 Prone hip flexor stretch for 5 min, LAQ right leg with 2# ankle weight for 5 min , sit to stand 3 sets of 5 Treatments bed mobility and transfers, ambulation, functional strengthening, ROM Assessment Current Status: Fair Progress improving mobility, endurance, strength PT Short Term Goals Short Term Goals Time Frame: May 03, 2017 Transfers (B,C,W/C) (FIM): 5 Gait (FIM): 2 Gait Distance Comment: 100' Gait Level of Assist: 5 Gait Assistive Device: FWW Wheelchair Distance: 75' PT Change Management Analyst Goals Change Management Analyst Goals PT Change Management Analyst Goals Time Frame: May 17, 2017 Transfers (B,C,W/C) (FIM): 6 Sit to Lying (QC): 6 Lying-Sitting on Side/Bed(QC): 6 Sit to Stand (QC): 6 Rollin Roll Left to Right (QC): 6 Chair/Xnw-jv-Ydhmg Xfer(QC): 6 Gait (FIM): 5 Distance: 150' Walk 10 feet (QC): 4 Walk 10ft-Uneven Surface(QC): 4 Walk 50ft with 2 Turns (QC): 4 Walk 150 ft (QC): 4 Gait Level of Assist: 5 Gait Assistive Device: FWW PT Plan Problem List Problem List: Activity Tolerance, Functional Strength, Safety, Balance, Gait, Transfer, Bed Mobility, ROM Treatment/Plan Treatment Plan: Continue Plan of Care Treatment Plan: Bed Mobility, Education, Functional Activity Miranda, Functional Strength, Group Therapy, Gait, Safety, Therapeutic Exercise, Transfers Treatment Duration: May 17, 2017 Frequency: At least 5-7 days/Wk (IRF) Estimated Hrs Per Day: 1.5 hours per day Patient and/or Family Agrees t: Yes Safety Risks/Education Patient Education: Gait Training, Transfer Techniques, Correct Positioning, W/ C Management, Safety Issues Teaching Recipient: Patient Teaching Methods: Demonstration, Discussion Response to Teaching: Reinforcement Needed Time/GCodes Time In: 1000 Time Out: 1100 Total Billed Treatment Time: 60 Total Billed Treatment 1 visit GT 30' EX 30' SAW PIÑA PT May 01, 2017 10:57
--- NOTE | 2017-05-01 12:40 | Occupational Ther Daily Note ---
OT Current Status-Daily Note Subjective Pt agrees to treatment this am. Reports 6/10 pain in left LE Mental Status/Objective Functional [place] Measure 0=Not Assessed/NA 4=Minimal Assistance 1=Total Assistance 5=Supervision or Setup 2=Maximal Assistance 6=Modified [place] 3=Moderate Assistance 7=Complete [place] ADL-Treatment Pt in restroom when therapist arrives. Pt able to complete toileting hygiene without assistance. Transferred to w/c with modified independence using grab bars for safety. Pt cleaned up with bath pack prior to therapist arrival. Pt has already gathered clothing. Don pullover shirt with modified independence. Pt donned pants with SBA for balance during pant hike. Grooming tasks completed with modified independence while seated at sink. Functional [place] Measure 0=Not Assessed/NA 4=Minimal Assistance 1=Total Assistance 5=Supervision or Setup 2=Maximal Assistance 6=Modified [place] 3=Moderate Assistance 7=Complete IndependenceIRFPAI Quality Coding Scale 6 Independent with activity with or without an assistive device 5 Patient requires set up or clean up by helper. Patient completes activity by themselves 4 Supervision or touching assist (CGA). [place] provide cues , steadying assist 3 The helper provides less than half the effort to complete the activity 2 The helper provides more than half the effort to complete the activity 1 Dependent. The helper does all the effort to complete an activity 7 Patient refused to complete or attempt activity 9 The patient did not perform the activity before the current illness or injury 88 Not attempted due to Medical conditions or safety concerns Grooming (FIM): 6 Oral Hygiene (QC): 6 Upper Body (FIM): 6 Upper Body Dressing (QC): 6 Lower Body Dressing (FIM): 5 Toilet/Commode Transfer (FIM): 6 Toilet Transfer (QC): 6 Other Treatment W/c mobility to therapy gym without assistance. Pt completed bilateral UE exercises to increase strength needed for ADLs and transfers. Pt performed shoulder flexion, abduction, biceps curls, and triceps extension exercises x20 reps with moderate resistance (red) theraband. Rest breaks between exercises. Occasional cues for proper exercise technique. Arm bike x12 minutes to increase overall strength and activity tolerance needed for functional task. Pt completed task with moderate resistance and slow pace. No rest breaks needed. Pt returned to room, sitting in w/c with needs met after session. OT Short Term Goals Short Term Goals Time Frame: May 03, 2017 Lower Body Dressing(FIM): 5 Toileting(FIM): 5 Transfers (B,C,W/C) (FIM): 5 Toilet/Commode Transfer(FIM): 5 Shower Transfer(FIM): 5 Additional Short Term Goals: 1-Demonstrate ADL Tasks, 2-Verbalize Understanding 1=Demonstrate adherence to instructed precautions during ADL tasks. 2=Patient will verbalize/demonstrate understanding of assistive devices/ modifications for ADL. 3=Patient will improve strength/tolerance for activity to enable patient to perform ADL's. OT Wood Furniture Assembler Goals Wood Furniture Assembler Goals Time Frame: May 17, 2017 Eating (FIM): 6 Eating (QC): 6 Groomin Oral Hygiene (QC): 6 Bathing(FIM): 5 Shower/Bathe Self (QC): 5 Upper Body Dressing(FIM): 6 Upper Body Dressing (QC): 6 Lower Body Dressing(FIM): 6 Lower Body Dressing (QC): 6 On/Off Footwear (QC): 6 Toileting(FIM): 6 Toileting Hygiene (QC): 6 Toilet/Commode Transfer(FIM): 6 Toilet/Commode Transfer (QC): 6 Shower Transfer(FIM): 5 Additional Goals: 1-Demonstrate ADL Tasks, 2-Verbalize Understanding, 3- ImproveStrength/Miranda 1=Demonstrate adherence to instructed precautions during ADL tasks. 2=Patient will verbalize/demonstrate understanding of assistive devices/ modifications for ADL. 3=Patient will improve strength/tolerance for activity to enable patient to perform ADL's. OT Education/Plan Problem List/Assessment Pt s/p left AKA with decreased ADL functioning, mobility, strength, and activity tolerance. Pt to benefit from skilled OT intervention for ADL training , transfers, strengthening, and home safety education to maximize level of function and allow safe return home. Discharge Recommendations Plan/Recommendations: Continue POC Treatment Plan/Plan of Care Patient would benefit from OT for education, treatment and training to promote independence in ADL's, mobility, safety and/or upper extremity function for ADL' s. Plan of Care: ADL Retraining, Functional Mobility, Group Exercise/Act as Ind, UE Funct Exercise/Act Treatment Duration: May 17, 2017 Frequency: At least 5-7 days/Wk (IRF) Estimated Hrs Per Day: 1.5 hours per day Agreement: Yes Rehab Potential: Fair Time/GCodes Start Time: 08:00 Stop Time: 09:00 Total Time Billed (hr/min): 60 Billed Treatment Time 1 visit, ADLx2(25minutes), EXx2(35minutes) DARIO RUCKER OT May 01, 2017 12:40
--- NOTE | 2017-05-01 13:05 | Occupational Ther Daily Note ---
OT Current Status-Daily Note Subjective Pt sitting in w/c, agrees to treatment. Pt reports 7/10 pain in left LE. Mental Status/Objective Functional [place] Measure 0=Not Assessed/NA 4=Minimal Assistance 1=Total Assistance 5=Supervision or Setup 2=Maximal Assistance 6=Modified [place] 3=Moderate Assistance 7=Complete [place] ADL-Treatment Functional [place] Measure 0=Not Assessed/NA 4=Minimal Assistance 1=Total Assistance 5=Supervision or Setup 2=Maximal Assistance 6=Modified [place] 3=Moderate Assistance 7=Complete IndependenceIRFPAI Quality Coding Scale 6 Independent with activity with or without an assistive device 5 Patient requires set up or clean up by helper. Patient completes activity by themselves 4 Supervision or touching assist (CGA). [place] provide cues , steadying assist 3 The helper provides less than half the effort to complete the activity 2 The helper provides more than half the effort to complete the activity 1 Dependent. The helper does all the effort to complete an activity 7 Patient refused to complete or attempt activity 9 The patient did not perform the activity before the current illness or injury 88 Not attempted due to Medical conditions or safety concerns Other Treatment Pt performed w/c mobility to therapy gym without assistance. Pt completed tabletop peg activity with bilateral UE with 2# weights in place to promote increased strength needed for ADLs and transfers. Pt completed task with slow pace. Pt completed fine motor task with nuts and bolts with bilateral UE with weight in place to increase strength and fine motor coordination. Pt completed task with increased time. Pt returned to room, transferred w/c to bed with modified independence. Pt sitting EOB with needs met after session. OT Short Term Goals Short Term Goals Time Frame: May 03, 2017 Lower Body Dressing(FIM): 5 Toileting(FIM): 5 Transfers (B,C,W/C) (FIM): 5 Toilet/Commode Transfer(FIM): 5 Shower Transfer(FIM): 5 Additional Short Term Goals: 1-Demonstrate ADL Tasks, 2-Verbalize Understanding 1=Demonstrate adherence to instructed precautions during ADL tasks. 2=Patient will verbalize/demonstrate understanding of assistive devices/ modifications for ADL. 3=Patient will improve strength/tolerance for activity to enable patient to perform ADL's. OT Byproducts Maker Goals Mcfp Goals Time Frame: May 17, 2017 Eating (FIM): 6 Eating (QC): 6 Groomin Oral Hygiene (QC): 6 Bathing(FIM): 5 Shower/Bathe Self (QC): 5 Upper Body Dressing(FIM): 6 Upper Body Dressing (QC): 6 Lower Body Dressing(FIM): 6 Lower Body Dressing (QC): 6 On/Off Footwear (QC): 6 Toileting(FIM): 6 Toileting Hygiene (QC): 6 Toilet/Commode Transfer(FIM): 6 Toilet/Commode Transfer (QC): 6 Shower Transfer(FIM): 5 Additional Goals: 1-Demonstrate ADL Tasks, 2-Verbalize Understanding, 3- ImproveStrength/Miranda 1=Demonstrate adherence to instructed precautions during ADL tasks. 2=Patient will verbalize/demonstrate understanding of assistive devices/ modifications for ADL. 3=Patient will improve strength/tolerance for activity to enable patient to perform ADL's. OT Education/Plan Problem List/Assessment Pt s/p left AKA with decreased ADL functioning, mobility, strength, and activity tolerance. Pt to benefit from skilled OT intervention for ADL training , transfers, strengthening, and home safety education to maximize level of function and allow safe return home. Discharge Recommendations Plan/Recommendations: Continue POC Treatment Plan/Plan of Care Patient would benefit from OT for education, treatment and training to promote independence in ADL's, mobility, safety and/or upper extremity function for ADL' s. Plan of Care: ADL Retraining, Functional Mobility, Group Exercise/Act as Ind, UE Funct Exercise/Act Treatment Duration: May 17, 2017 Frequency: At least 5-7 days/Wk (IRF) Estimated Hrs Per Day: 1.5 hours per day Agreement: Yes Rehab Potential: Fair Time/GCodes Start Time: 11:00 Stop Time: 11:30 Total Time Billed (hr/min): 30 Billed Treatment Time 1 visit, EXx2(30minutes) DARIO RUCKER OT May 01, 2017 13:05
--- NOTE | 2017-05-01 14:33 | Physical Therapy Daily Note ---
PT Daily Note-Current Subjective Patient in bed pre tx, agrees to PT, has pain of 7/10 in left leg, nurse notified and he got pain meds. Appearance Patient in wheelchair in his room post tx, he is independent in his room. Mental Status Patient Orientation: Normal For Age Transfers Functional [place] Measure 0=Not Assessed/NA 4=Minimal Assistance 1=Total Assistance 5=Supervision or Setup 2=Maximal Assistance 6=Modified [place] 3=Moderate Assistance 7=Complete IndependenceIRFPAI Quality Coding Scale 6 Independent with activity with or without an assistive device 5 Patient requires set up or clean up by helper. Patient completes activity by themselves 4 Supervision or touching assist (CGA). [place] provide cues , steadying assist 3 The helper provides less than half the effort to complete the activity 2 The helper provides more than half the effort to complete the activity 1 Dependent. The helper does all the effort to complete an activity 7 Patient refused to complete or attempt activity 9 The patient did not perform the activity before the current illness or injury 88 Not attempted due to Medical conditions or safety concerns Transfers (B, C, W/C) (FIM): 6 Scootin Rollin Supine to/from Sit: 6 Sit to/from Stand: 6 Bed to/from Chair: 6 Wheelchair Training Does the Pt Use a Wheelchair?: Yes Wheelchair (FIM): 6 Distance: 150'x2 Type of Wheelchair: Manual Exercises NuStep Minutes: 15 NuStep Workload: 5 (strengthening to improve ability to ambulate) Treatments transfers and bed mobility, functional strengthening, wheelchair mobility Assessment Current Status: Fair Progress improving mobility PT Short Term Goals Short Term Goals Time Frame: May 03, 2017 Transfers (B,C,W/C) (FIM): 5 Gait (FIM): 2 Gait Distance Comment: 100' Gait Level of Assist: 5 Gait Assistive Device: FWW Wheelchair Distance: 150'x2 PT Inventory Control Assistant Goals Inventory Control Assistant Goals PT Inventory Control Assistant Goals Time Frame: May 17, 2017 Transfers (B,C,W/C) (FIM): 6 Sit to Lying (QC): 6 Lying-Sitting on Side/Bed(QC): 6 Sit to Stand (QC): 6 Rollin Roll Left to Right (QC): 6 Chair/Wrh-lu-Ojqpa Xfer(QC): 6 Gait (FIM): 5 Distance: 150' Walk 10 feet (QC): 4 Walk 10ft-Uneven Surface(QC): 4 Walk 50ft with 2 Turns (QC): 4 Walk 150 ft (QC): 4 Gait Level of Assist: 5 Gait Assistive Device: FWW PT Plan Problem List Problem List: Activity Tolerance, Functional Strength, Safety, Balance, Gait, Transfer Treatment/Plan Treatment Plan: Continue Plan of Care Treatment Plan: Bed Mobility, Education, Functional Activity Miranda, Functional Strength, Group Therapy, Gait, Safety, Therapeutic Exercise, Transfers Treatment Duration: May 17, 2017 Frequency: At least 5-7 days/Wk (IRF) Estimated Hrs Per Day: 1.5 hours per day Patient and/or Family Agrees t: Yes Safety Risks/Education Patient Education: Transfer Techniques, Correct Positioning, W/C Management, Safety Issues Teaching Recipient: Patient Teaching Methods: Demonstration, Discussion Response to Teaching: Reinforcement Needed Time/GCodes Time In: 1400 Time Out: 1430 Total Billed Treatment Time: 30 Total Billed Treatment 1 visit EX 15' [facility] 15' SAW PIÑA PT May 01, 2017 14:33
[2017-05-01 17:30] VITALS: BP 121/71
[2017-05-01] MEDS: POLYETHYLENE GLYCOL 17 GM (MIRALAX) PACK PO SCH (20:30)
[2017-05-02] MEDS: inSUlin ASPART (NovoLOG) 1 UNIT/0.01 ML (CHARGE PER UNIT) SC SCH ×4 (05:04→21:00)
[2017-05-02 06:20] VITALS: BP 138/78
[2017-05-02] MEDS: metFORMIN 500 MG (GLUCOPHAGE) TAB PO SCH ×2 (06:32→18:00)
--- NOTE | 2017-05-02 08:24 | PM & R (SOAP) Progress Note ---
Subjective Time Seen by Provider: 07:45 Subjective/Events-last exam Patient was seen in his room this AM Patient Modified Independent for transfers Accucheks improved with adjustment in meds Objective Exam Last Set of Vital Signs Vital Signs Date Time Temp Pulse Resp B/P (MAP) Pulse Ox O2 Delivery O2 Flow Rate FiO2 05/02/17 06:20 98.0 90 20 138/78 98 Room Air Capillary Refill : I&O Intake and Output 05/02/17 00:00 Intake Total 1450 ml Output Total 675 ml Balance 775 ml Intake Oral 1450 ml Output Urine Total 675 ml # Voids 5 # Bowel Movements 1 General: Alert, Oriented X3, Cooperative, No Acute Distress HEENT: Atraumatic, PERRLA, Mucous Memb Moist/Parkin Neck: Supple, No JVD Lungs: Clear to Auscultation Heart: Regular Rate Abdomen: Normal Bowel Sounds, Soft, No Tenderness Extremities: Other (no edema rt leg Left AKA wrapped with minimal tenderness) Skin: Other (residual limb wrapped) Neuro: Other (Functional strength for transfers and function at W/C level of function) Psych/Mental Status: Mental Status NL Results Lab Laboratory Tests 04/29/17 11:32: Glucometer 77 04/29/17 17:17: Glucometer 119H 04/29/17 21:09: Glucometer 100 04/30/17 05:42: Glucometer 63L 04/30/17 06:28: Glucometer 93 04/30/17 11:04: Glucometer 60*L 04/30/17 16:17: Glucometer 64L 04/30/17 17:02: Glucometer 66L 04/30/17 19:19: Glucometer 180H 04/30/17 21:54: Glucometer 167H 05/01/17 05:34: Glucometer 100 05/01/17 10:58: Glucometer 99 05/01/17 16:15: Glucometer 128H 05/01/17 21:50: Glucometer 174H 05/02/17 05:00: Glucometer 105 Assessment/Plan Assessment s/p left AKA for non healing wound left BKA IDDM-accucheks running low-Insulin adjusted HTN controlled Chronic back pain s/p Lumbar spine surgery Plan Continue PT/OT/Pain management and wound care ST has signed off Monitor Blood pressure and Accuchecks and adjust meds as neede F/U with DR Larose re DM management TEam Conference held yesterday=See report for full functional update and POC and ELOS Discharge remains tentatively set for tomorrow 05/03/17 home with spouse and C F/U with Surgeon and PCP as an outpatient JOHNIE RANDALL MD May 02, 2017 08:24
[2017-05-02] MEDS: lisINopril 20 MG (ZESTRIL) TAB PO SCH (08:31)
[2017-05-02] MEDS: AMITRIPTYLINE 25 MG (ELAVIL) TAB PO SCH ×2 (08:31→21:54)
[2017-05-02] MEDS: ASPIRIN E.C. 325 MG (ECOTRIN) TABLET PO SCH (08:31)
[2017-05-02] MEDS: DOCUSATE SODIUM 100 MG (COLACE) CAP PO SCH ×2 (08:31→21:54)
[2017-05-02] MEDS: CARVEDILOL 12.5 MG (COREG) TABLET PO SCH ×2 (08:31→21:54)
[2017-05-02] MEDS: DIGOXIN 0.25 MG (LANOXIN) TAB PO SCH (08:31)
[2017-05-02] MEDS: FINASTERIDE (PROSCAR) 5 MG TAB PO SCH (08:31)
[2017-05-02] MEDS: HYDROcodone/APAP 10 MG/325 MG (LORTAB) TAB PO PRN ×3 (08:32→21:54)
--- NOTE | 2017-05-02 08:59 | Progress Note (SOAP) ---
Subjective Time Seen by Provider: 09:00 Subjective/Events-last exam left AKA. Diabetes. Patient's blood sugars better. Patient to go home tomorrow Objective Exam Vital Signs Date Time Temp Pulse Resp B/P (MAP) Pulse Ox O2 Delivery O2 Flow Rate FiO2 05/02/17 06:20 98.0 90 20 138/78 98 Room Air 05/01/17 17:30 98.3 83 20 121/71 97 Room Air 05/01/17 09:00 Room Air I & O 05/02/17 07:00 Intake Total 1500 ml Output Total 675 ml Balance 825 ml Capillary Refill : General Appearance: No Apparent Distress, WD/WN HEENT: Normal ENT Inspection Neck: Full Range of Motion Respiratory: Chest Non Tender, Lungs Clear, Normal Breath Sounds, No Accessory Muscle Use, No Respiratory Distress Cardiovascular: Regular Rate, Rhythm Results Lab Laboratory Tests 05/01/17 10:58: Glucometer 99 05/01/17 16:15: Glucometer 128H 05/01/17 21:50: Glucometer 174H 05/02/17 05:00: Glucometer 105 Assessment/Plan Assessment/Plan Assess & Plan/Chief Complaint left duzcp-gpg-zgwi amputation. Diabetes. Hypertension. Former smoker. Weakness. . . Left vytsx-lsr-rldh amputation. . Diabetes. Hypertension. Patient put on medicines he was on previously for his hypertension. . 05/01/17. Left cwgga-dzx-sdct amputation. DIABETES>.. . 05/02/17. Left nubzg-sev-hqpw amputation. Diabetes. Sugars are better. Patient doing better. Patient be discharged tomorrow Clinical Quality Measures DVT/VTE Risk/Contraindication: Risk Factor Score Per Nursin RFS Level Per Nursing on Admit: 4+=Very High TERRI TAVAREZ DO May 02, 2017 08:59
--- NOTE | 2017-05-02 10:12 | Physical Therapy Daily Note ---
PT Daily Note-Current Subjective Patient in bed pre tx, agrees to PT, has 3/10 pain in left leg. Appearance Patient in wheelchair post tx in his room. Mental Status Patient Orientation: Normal For Age Transfers Functional [place] Measure 0=Not Assessed/NA 4=Minimal Assistance 1=Total Assistance 5=Supervision or Setup 2=Maximal Assistance 6=Modified [place] 3=Moderate Assistance 7=Complete IndependenceIRFPAI Quality Coding Scale 6 Independent with activity with or without an assistive device 5 Patient requires set up or clean up by helper. Patient completes activity by themselves 4 Supervision or touching assist (CGA). [place] provide cues , steadying assist 3 The helper provides less than half the effort to complete the activity 2 The helper provides more than half the effort to complete the activity 1 Dependent. The helper does all the effort to complete an activity 7 Patient refused to complete or attempt activity 9 The patient did not perform the activity before the current illness or injury 88 Not attempted due to Medical conditions or safety concerns Transfers (B, C, W/C) (FIM): 6 Scootin Rollin Roll Left to Right (QC): 6 Supine to/from Sit: 6 Sit to/from Stand: 6 Sit to Lying (QC): 6 Sit to Stand (QC): 6 Chair/Qxj-qf-Yifxe Xfer(QC): 6 Bed to/from Chair: 6 Gait Training Does the Patient Walk?: Yes Gait (FIM): 2 Distance: 75' Walk 10 feet (QC): 4 Walk 50 ft with 2 Turns(QC): 4 Walk 150 ft (QC): 88 Walking 10ft/uneven surface-QC: 4 Gait Level of Assist: 5 Gait Persons Needed: 1 Gait Assistive Device: FWW Patient can ambulate 75' with a rolling walker with SBA, including 50' with at least 2 turns and 10' over an uneven surface. Patient still fatigues fairly quickly. Wheelchair Training Does the Pt Use a Wheelchair?: Yes Wheelchair (FIM): 6 Distance: 150' Wheel 50 ft with 2 turns (QC): 6 Wheel 150 ft (QC): 6 Type of Wheelchair: Manual Stair Training Stairs (FIM): 1 #of Steps: 1 1 Step (curb) (QC): 4 4 Steps (QC): 88 12 Steps (QC): 88 Stairs: Pattern: Hops Level of Assist: 4 Patient can go up and down 1 step using a rolling walker with CGA. Patient has a hard time hopping high enough to get up on a step or he could do more. Patient has a ramp at home. Balance Picking up an Object (QC): 88 Exercises NuStep Minutes: 15 NuStep Workload: 5 Treatments bed mobility and transfers, ambulation, functional strengthening, stair training Assessment improving mobility PT Short Term Goals Short Term Goals Time Frame: May 03, 2017 Transfers (B,C,W/C) (FIM): 5 Gait (FIM): 2 Gait Distance Comment: 100' Gait Level of Assist: 5 Gait Assistive Device: FWW Wheelchair Distance: 150'x2 PT Floor Manager Goals Correction Goals PT Correction Goals Time Frame: May 17, 2017 Transfers (B,C,W/C) (FIM): 6 (met) Sit to Lying (QC): 6 (mt) Lying-Sitting on Side/Bed(QC): 6 (met) Sit to Stand (QC): 6 (met) Rollin (met) Roll Left to Right (QC): 6 (met) Chair/Zku-ev-Perju Xfer(QC): 6 (et) Gait (FIM): 5 Distance: 150' Walk 10 feet (QC): 4 (met) Walk 10ft-Uneven Surface(QC): 4 (met) Walk 50ft with 2 Turns (QC): 4 (met) Walk 150 ft (QC): 4 Gait Level of Assist: 5 (met) Gait Assistive Device: FWW PT Plan Problem List Problem List: Activity Tolerance, Functional Strength, Safety, Balance, Gait, Transfer, ROM Treatment/Plan Treatment Plan: Continue Plan of Care Treatment Plan: Bed Mobility, Education, Functional Activity Miranda, Functional Strength, Group Therapy, Gait, Safety, Therapeutic Exercise, Transfers Treatment Duration: May 17, 2017 Frequency: At least 5-7 days/Wk (IRF) Estimated Hrs Per Day: 1.5 hours per day Patient and/or Family Agrees t: Yes Safety Risks/Education Patient Education: Gait Training, Transfer Techniques, Steps, Correct Positioning, Safety Issues Teaching Recipient: Patient Teaching Methods: Demonstration, Discussion Response to Teaching: Reinforcement Needed Time/GCodes Time In: 930 Time Out: 1015 Total Billed Treatment Time: 45 Total Billed Treatment 1 visit EX 15' GT 20' FA 10' SAW PIÑA PT May 02, 2017 10:12
--- NOTE | 2017-05-02 10:55 | Occupational Ther Daily Note ---
OT Current Status-Daily Note Subjective Pt agrees to treatment this am. Plan is for pt to d/c home with spouse tomorrow. Mental Status/Objective Functional [place] Measure 0=Not Assessed/NA 4=Minimal Assistance 1=Total Assistance 5=Supervision or Setup 2=Maximal Assistance 6=Modified [place] 3=Moderate Assistance 7=Complete [place] ADL-Treatment Pt in w/c completing grooming at sink when therapist arrives. Pt brushed teeth, washed face, and combed hair with modified independence. [place] clothing without assistance. Pt transferred w/c <-> shower bench with modified independence using grab bars. Pt able to complete seated bathing with hand held shower with modified independence. Incision on left LE covered during shower to prevent getting wet. Don pullover shirt with modified independence. Assist required to don ux developer designer on left LE. Pt donned underwear and pants, stood with good balance for pant hike. Pt donned right sock and shoe with modified independence. Pt demonstrated ability to perform toilet transfer with modified independence using grab bars. Pt states he has been getting up to restroom without assistance and has no difficulty managing hygiene or clothing. Pt sitting in w/ c with needs met after session. Functional [place] Measure 0=Not Assessed/NA 4=Minimal Assistance 1=Total Assistance 5=Supervision or Setup 2=Maximal Assistance 6=Modified [place] 3=Moderate Assistance 7=Complete IndependenceIRFPAI Quality Coding Scale 6 Independent with activity with or without an assistive device 5 Patient requires set up or clean up by helper. Patient completes activity by themselves 4 Supervision or touching assist (CGA). [place] provide cues , steadying assist 3 The helper provides less than half the effort to complete the activity 2 The helper provides more than half the effort to complete the activity 1 Dependent. The helper does all the effort to complete an activity 7 Patient refused to complete or attempt activity 9 The patient did not perform the activity before the current illness or injury 88 Not attempted due to Medical conditions or safety concerns Eating (FIM): 6 (Pt reports feeding self, managing containers, and cutting food without assistance.) Eating (QC): 6 Grooming (FIM): 6 Oral Hygiene (QC): 6 Bathing (FIM): 6 Shower/Bathe Self (QC): 6 Upper Body (FIM): 6 Upper Body Dressing (QC): 6 Lower Body Dressing (FIM): 5 (set up for ux developer designer) Lower Body Dressing (QC): 5 On/Off Footwear (QC): 6 Toileting (FIM): 6 Toileting Hygiene (QC): 6 (pt reports managing clothing and hygiene without assistance) Toilet/Commode Transfer (FIM): 6 Toilet Transfer (QC): 6 Shower Transfer(FIM): 6 OT Short Term Goals Short Term Goals Time Frame: May 03, 2017 Lower Body Dressing(FIM): 5 Toileting(FIM): 5 Transfers (B,C,W/C) (FIM): 5 Toilet/Commode Transfer(FIM): 5 Shower Transfer(FIM): 5 Additional Short Term Goals: 1-Demonstrate ADL Tasks, 2-Verbalize Understanding 1=Demonstrate adherence to instructed precautions during ADL tasks. 2=Patient will verbalize/demonstrate understanding of assistive devices/ modifications for ADL. 3=Patient will improve strength/tolerance for activity to enable patient to perform ADL's. OT Senior Sharepoint Developer Goals Snf Goals Time Frame: May 17, 2017 Eating (FIM): 6 (met 05/02/17) Eating (QC): 6 (6-MET) Groomin (met 05/02/17) Oral Hygiene (QC): 6 (6-MET) Bathing(FIM): 5 (exceeded 05/02/17) Shower/Bathe Self (QC): 5 (6-exceeded) Upper Body Dressing(FIM): 6 (met 05/02/17) Upper Body Dressing (QC): 6 (6-MET) Lower Body Dressing(FIM): 6 (not met) Lower Body Dressing (QC): 6 (5-not met) On/Off Footwear (QC): 6 (met 05/02/17) Toileting(FIM): 6 (met 05/02/17) Toileting Hygiene (QC): 6 (6-MET) Toilet/Commode Transfer(FIM): 6 (met 05/02/17) Toilet/Commode Transfer (QC): 6 (6-MET) Shower Transfer(FIM): 5 (exceeded 05/02/17) Additional Goals: 1-Demonstrate ADL Tasks, 2-Verbalize Understanding, 3- ImproveStrength/Miranda 1=Demonstrate adherence to instructed precautions during ADL tasks. 2=Patient will verbalize/demonstrate understanding of assistive devices/ modifications for ADL. 3=Patient will improve strength/tolerance for activity to enable patient to perform ADL's. OT Education/Plan Problem List/Assessment Pt s/p left AKA with decreased ADL functioning, mobility, strength, and activity tolerance. Pt to benefit from skilled OT intervention for ADL training , transfers, strengthening, and home safety education to maximize level of function and allow safe return home. Discharge Recommendations Plan/Recommendations: Continue POC Treatment Plan/Plan of Care Patient would benefit from OT for education, treatment and training to promote independence in ADL's, mobility, safety and/or upper extremity function for ADL' s. Plan of Care: ADL Retraining, Functional Mobility, Group Exercise/Act as Ind, UE Funct Exercise/Act Treatment Duration: May 17, 2017 Frequency: At least 5-7 days/Wk (IRF) Estimated Hrs Per Day: 1.5 hours per day Agreement: Yes Rehab Potential: Fair Time/GCodes Start Time: 08:00 Stop Time: 09:00 Total Time Billed (hr/min): 60 Billed Treatment Time 1 visit, ADLx4(60minutes) DARIO RUCKER OT May 02, 2017 10:55
[2017-05-02] MEDS ORDERED: HYDR-3922 PO ×2 (11:03)
[2017-05-02] MEDS ORDERED: FINA5TAB6 PO ×2 (11:03)
[2017-05-02] MEDS ORDERED: AMIT25TA9 PO ×2 (11:03)
[2017-05-02] MEDS ORDERED: POLY17PO23 PO ×2 (11:03)
[2017-05-02] MEDS ORDERED: LISI40TA PO ×2 (11:03)
[2017-05-02] MEDS ORDERED: METF1000 PO ×2 (11:03)
[2017-05-02] MEDS ORDERED: DIGO250T PO ×2 (11:03)
[2017-05-02] MEDS ORDERED: HYDR-3820 PO ×2 (11:03)
[2017-05-02] MEDS ORDERED: CARV12.53 PO ×2 (11:03)
--- NOTE | 2017-05-02 12:13 | Occupational Ther Daily Note ---
OT Current Status-Daily Note Subjective Pt in bed, agrees to treatment. Mental Status/Objective Functional [place] Measure 0=Not Assessed/NA 4=Minimal Assistance 1=Total Assistance 5=Supervision or Setup 2=Maximal Assistance 6=Modified [place] 3=Moderate Assistance 7=Complete [place] ADL-Treatment Functional [place] Measure 0=Not Assessed/NA 4=Minimal Assistance 1=Total Assistance 5=Supervision or Setup 2=Maximal Assistance 6=Modified [place] 3=Moderate Assistance 7=Complete IndependenceIRFPAI Quality Coding Scale 6 Independent with activity with or without an assistive device 5 Patient requires set up or clean up by helper. Patient completes activity by themselves 4 Supervision or touching assist (CGA). [place] provide cues , steadying assist 3 The helper provides less than half the effort to complete the activity 2 The helper provides more than half the effort to complete the activity 1 Dependent. The helper does all the effort to complete an activity 7 Patient refused to complete or attempt activity 9 The patient did not perform the activity before the current illness or injury 88 Not attempted due to Medical conditions or safety concerns Other Treatment Pt supine to sit with modified independence. Don shoe with modified independence. Transfer EOB to w/c modified independence. W/c mobility to therapy gym without assistance. Arm bike [id number] to increase overall strength and activity tolerance needed for ADLs and transfers. Pt completed task with moderate resistance and slow pace. No rest breaks needed. Pt performed bilateral UE exercises to increase strength needed for functional task completion. Pt performed shoulder flexion, forward press, and biceps curls x20 reps with 2# dowel dina. Pt returned to room, transferred to EOB with modified independence. Pt in bed with needs met after session. OT Short Term Goals Short Term Goals Time Frame: May 03, 2017 Lower Body Dressing(FIM): 5 Toileting(FIM): 5 Transfers (B,C,W/C) (FIM): 5 Toilet/Commode Transfer(FIM): 5 Shower Transfer(FIM): 5 Additional Short Term Goals: 1-Demonstrate ADL Tasks, 2-Verbalize Understanding 1=Demonstrate adherence to instructed precautions during ADL tasks. 2=Patient will verbalize/demonstrate understanding of assistive devices/ modifications for ADL. 3=Patient will improve strength/tolerance for activity to enable patient to perform ADL's. OT Detention Goals [facility] Cleaner Goals Time Frame: May 17, 2017 Eating (FIM): 6 (met 05/02/17) Eating (QC): 6 (6-MET) Groomin (met 05/02/17) Oral Hygiene (QC): 6 (6-MET) Bathing(FIM): 5 (exceeded 05/02/17) Shower/Bathe Self (QC): 5 (6-exceeded) Upper Body Dressing(FIM): 6 (met 05/02/17) Upper Body Dressing (QC): 6 (6-MET) Lower Body Dressing(FIM): 6 (not met) Lower Body Dressing (QC): 6 (5-not met) On/Off Footwear (QC): 6 (met 05/02/17) Toileting(FIM): 6 (met 05/02/17) Toileting Hygiene (QC): 6 (6-MET) Toilet/Commode Transfer(FIM): 6 (met 05/02/17) Toilet/Commode Transfer (QC): 6 (6-MET) Shower Transfer(FIM): 5 (exceeded 05/02/17) Additional Goals: 1-Demonstrate ADL Tasks, 2-Verbalize Understanding, 3- ImproveStrength/Miranda 1=Demonstrate adherence to instructed precautions during ADL tasks. 2=Patient will verbalize/demonstrate understanding of assistive devices/ modifications for ADL. 3=Patient will improve strength/tolerance for activity to enable patient to perform ADL's. OT Education/Plan Problem List/Assessment Pt s/p left AKA with decreased ADL functioning, mobility, strength, and activity tolerance. Pt to benefit from skilled OT intervention for ADL training , transfers, strengthening, and home safety education to maximize level of function and allow safe return home. Discharge Recommendations Plan/Recommendations: Continue POC Treatment Plan/Plan of Care Patient would benefit from OT for education, treatment and training to promote independence in ADL's, mobility, safety and/or upper extremity function for ADL' s. Plan of Care: ADL Retraining, Functional Mobility, Group Exercise/Act as Ind, UE Funct Exercise/Act Treatment Duration: May 17, 2017 Frequency: At least 5-7 days/Wk (IRF) Estimated Hrs Per Day: 1.5 hours per day Agreement: Yes Rehab Potential: Fair Time/GCodes Start Time: 11:00 Stop Time: 11:30 Total Time Billed (hr/min): 30 Billed Treatment Time 1 visit, EXx2(30minutes) DARIO RUCKER OT May 02, 2017 12:13
--- NOTE | 2017-05-02 15:30 | Physical Therapy Daily Note ---
PT Daily Note-Current Subjective Reports he ordered lunch 1.5 hour ago and still hasnt received it. Transfers Functional [place] Measure 0=Not Assessed/NA 4=Minimal Assistance 1=Total Assistance 5=Supervision or Setup 2=Maximal Assistance 6=Modified [place] 3=Moderate Assistance 7=Complete IndependenceIRFPAI Quality Coding Scale 6 Independent with activity with or without an assistive device 5 Patient requires set up or clean up by helper. Patient completes activity by themselves 4 Supervision or touching assist (CGA). [place] provide cues , steadying assist 3 The helper provides less than half the effort to complete the activity 2 The helper provides more than half the effort to complete the activity 1 Dependent. The helper does all the effort to complete an activity 7 Patient refused to complete or attempt activity 9 The patient did not perform the activity before the current illness or injury 88 Not attempted due to Medical conditions or safety concerns Treatments Wheelchair mobilty x 200 ft x 2 mod indep. SPT x 6 mod indep. Worked on the mat for hip extension to include prone positioning 2 sets of 5 minutes; supine leg in full extension (left) and performed hip abduction and SLR x 10 each; light overpressure for knee in neutral extension. Sidelying hip extension and abduction left x 10 each with passive stretching in extension as well in sidelying. Contacted dietary and it was found that he had ordered his food, but the master control technician reported he was over his carbs on what he had ordered and they had not contacted the nurse to clear it, therefore, his meal simply was not delivered. Nursing notified of dietary not delivering his meal. Assessment Current Status: Good Progress [place] with functional mobility and pt plans to discharge tomorrow. PT Short Term Goals Short Term Goals Time Frame: May 03, 2017 Transfers (B,C,W/C) (FIM): 5 Gait (FIM): 2 Gait Distance Comment: 100' Gait Level of Assist: 5 Gait Assistive Device: FWW Wheelchair Distance: 150' PT Fci Goals Fci Goals PT Mobile Architect Goals Time Frame: May 17, 2017 Transfers (B,C,W/C) (FIM): 6 (met) Sit to Lying (QC): 6 (mt) Lying-Sitting on Side/Bed(QC): 6 (met) Sit to Stand (QC): 6 (met) Rollin (met) Roll Left to Right (QC): 6 (met) Chair/Nlk-lr-Lbrsl Xfer(QC): 6 (et) Gait (FIM): 5 Distance: 150' Walk 10 feet (QC): 4 (met) Walk 10ft-Uneven Surface(QC): 4 (met) Walk 50ft with 2 Turns (QC): 4 (met) Walk 150 ft (QC): 4 Gait Level of Assist: 5 (met) Gait Assistive Device: FWW PT Plan Problem List Problem List: Activity Tolerance, Functional Strength Treatment/Plan Treatment Plan: Continue Plan of Care Treatment Plan: Bed Mobility, Education, Functional Activity Miranda, Functional Strength, Group Therapy, Gait, Safety, Therapeutic Exercise, Transfers Treatment Duration: May 17, 2017 Frequency: At least 5-7 days/Wk (IRF) Estimated Hrs Per Day: 1.5 hours per day Patient and/or Family Agrees t: Yes Time/GCodes Time In: 1445 Time Out: 1530 Total Billed Treatment Time: 45 Total Billed Treatment visit WC 15 EX 30 DARA GANDARA PT May 02, 2017 15:30
[2017-05-02 18:55] VITALS: BP 160/82
[2017-05-02] MEDS: POLYETHYLENE GLYCOL 17 GM (MIRALAX) PACK PO SCH (21:00)
[2017-05-02 21:43] LABS: BILIRUBIN,URINE NEGATIVE (NEGATIVE); KETONES,URINE NEGATIVE (NEGATIVE); LEUKOCYTE ESTERASE ,URINE NEGATIVE (NEGATIVE); NITRITE,URINE NEGATIVE (NEGATIVE); PH,URINE 6.5 (5-9); PROTEIN,URINE 2+ (NEGATIVE); UROBILINOGEN,URINE NORMAL (NORMAL)
[2017-05-02 21:50] LABS: SQUAMOUS EPITHELIAL CELL,UR RARE /HPF; WBC,URINE WBC /HPF
[2017-05-03 05:23] LABS: MEAN PLATELET VOLUME 9.4 FL (7.4-10.4); RED BLOOD COUNT 4.17 10^6/uL (4.35-5.85); RED CELL DISTRIBUTION WIDTH 13.8 % (10.0-14.5); WHITE BLOOD COUNT 7.1 10^3/uL (4.3-11.0)
[2017-05-03] MEDS: inSUlin ASPART (NovoLOG) 1 UNIT/0.01 ML (CHARGE PER UNIT) SC SCH ×2 (06:00→11:25)
[2017-05-03 06:14] VITALS: BP 142/84
[2017-05-03] MEDS: HYDROcodone/APAP 10 MG/325 MG (LORTAB) TAB PO PRN ×2 (06:41→09:10)
[2017-05-03] MEDS: metFORMIN 500 MG (GLUCOPHAGE) TAB PO SCH (06:41)
--- NOTE | 2017-05-03 08:17 | Progress Note (SOAP) ---
Subjective Time Seen by Provider: 08:10 Subjective/Events-last exam PATIENT FEELING GOOD. Blood and UA negative CBC. Left AKA. Patient be discharged today to home Objective Exam Vital Signs Date Time Temp Pulse Resp B/P (MAP) Pulse Ox O2 Delivery O2 Flow Rate FiO2 05/03/17 06:14 96.8 87 16 142/84 97 05/02/17 21:25 Room Air 05/02/17 18:55 99.6 96 20 160/82 97 Room Air 05/02/17 09:00 Room Air I & O 05/03/17 07:00 Intake Total 1500 ml Output Total 1575 ml Balance -75 ml Capillary Refill : General Appearance: No Apparent Distress, WD/WN HEENT: Normal ENT Inspection Neck: Full Range of Motion, Normal Inspection Respiratory: Chest Non Tender, Lungs Clear, Normal Breath Sounds, No Accessory Muscle Use, No Respiratory Distress Cardiovascular: Regular Rate, Rhythm Results Lab Laboratory Tests 05/03/17 05:14 Laboratory Tests 05/02/17 11:05: Glucometer 120H 05/02/17 16:43: Glucometer 111H 05/02/17 21:35: Urine Color YELLOW, Urine Clarity CLEAR, Urine pH 6.5, Urine Specific [place] 1.015L, Urine Protein 2+H, Urine Glucose (UA) NEGATIVE, Urine Ketones NEGATIVE, Urine Nitrite NEGATIVE, Urine Bilirubin NEGATIVE, Urine Urobilinogen NORMAL, Urine Leukocyte Esterase NEGATIVE, Urine RBC (Auto) NEGATIVE, Urine RBC NONE, Urine WBC WBC, Urine Squamous Epithelial Cells RARE, Urine Crystals NONE, Urine Bacteria NONE, Urine Casts NONE, Urine Mucus NEGATIVE, Urine Culture Indicated NO 05/02/17 21:44: Glucometer 122H 05/03/17 05:14: White Blood Count 7.1, Red Blood Count 4.17L, Hemoglobin 11.4L, Hematocrit 35L, Mean Corpuscular Volume 85, Mean Corpuscular Hemoglobin 27, Mean Corpuscular Hemoglobin Concent 32, Red Cell Distribution Width 13.8, Platelet Count 420H, Mean Platelet Volume 9.4 05/03/17 06:14: Glucometer 81 Assessment/Plan Assessment/Plan Assess & Plan/Chief Complaint left qswgk-gnk-uyzx amputation. Diabetes. Hypertension. Former smoker. Weakness. . . Left pdpnl-mcf-cdag amputation. . Diabetes. Hypertension. Patient put on medicines he was on previously for his hypertension. . 05/01/17. Left dnptt-nsb-rome amputation. DIABETES>.. . 05/02/17. Left lwpsx-tsl-bxfm amputation. Diabetes. Sugars are better. Patient doing better. Patient be discharged tomorrow Final Diagnosis patient be discharged today. patient doing good. Left AKA. Diabetes good. Afebrile Clinical Quality Measures DVT/VTE Risk/Contraindication: Risk Factor Score Per Nursin RFS Level Per Nursing on Admit: 4+=Very High TERRI TAVAREZ DO May 03, 2017 08:16
[2017-05-03] MEDS: DIGOXIN 0.25 MG (LANOXIN) TAB PO SCH (09:10)
[2017-05-03] MEDS: lisINopril 20 MG (ZESTRIL) TAB PO SCH (09:10)
[2017-05-03] MEDS: DOCUSATE SODIUM 100 MG (COLACE) CAP PO SCH (09:10)
[2017-05-03] MEDS: AMITRIPTYLINE 25 MG (ELAVIL) TAB PO SCH (09:10)
[2017-05-03] MEDS: ASPIRIN E.C. 325 MG (ECOTRIN) TABLET PO SCH (09:10)
[2017-05-03] MEDS: FINASTERIDE (PROSCAR) 5 MG TAB PO SCH (09:10)
[2017-05-03] MEDS: CARVEDILOL 12.5 MG (COREG) TABLET PO SCH (09:10)
--- NOTE | 2017-05-03 13:24 | Therapy Team Discharge Summary ---
Therapy Discharge Summary Discharge Recommendations Date of Discharge Therapy D/C Recommendations: Home w/ Family Support Occupational Therapy Pt admitted to ARU following left AKA. On admission pt required set up for grooming and UE dressing, and min assist for bathing, LE dressing, and transfers. Skilled OT intervention focused on ADL training, transfers, strengthening, and safety education. Pt made good progress with therapy and by discharge is completing transfers and ADLs with modified independence except LE dressing which is set up. Pt met all LTG except LE dressing. Pt discharged home with spouse. D/c ARU OT at this time. PT Prison Goals Prison Goals PT Prison Goals Time Frame: May 17, 2017 Transfers (B,C,W/C) (FIM): 6 (met) Roll Left to Right (QC): 6 (met) Sit to Lying (QC): 6 (mt) Lying-Sitting on Side/Bed(QC): 6 (met) Sit to Stand (QC): 6 (met) Chair/Cbj-rd-Nxabl Xfer(QC): 6 (et) Gait (FIM): 5 Distance: 150' Walk 10 feet (QC): 4 (met) Walk 10ft-Uneven Surface(QC): 4 (met) Walk 50ft with 2 Turns (QC): 4 (met) Walk 150 ft (QC): 4 Gait Level of Assist: 5 (met) Gait Assistive Device: FWW OT Asp Net Programmer Goals Prison Goals Time Frame: May 17, 2017 Eating (FIM): 6 (met 05/02/17) Eating (QC): 6 (6-MET) Oral Hygiene (QC): 6 (6-MET) Grooming(FIM): 6 (met 05/02/17) Bathing(FIM): 5 (exceeded 05/02/17) Shower/Bathe Self (QC): 5 (6-exceeded) Upper Body Dressing(FIM): 6 (met 05/02/17) Upper Body Dressing (QC): 6 (6-MET) Lower Body Dressing(FIM): 6 (not met) Lower Body Dressing (QC): 6 (5-not met) On/Off Footwear (QC): 6 (met 05/02/17) Toileting(FIM): 6 (met 05/02/17) Toileting Hygiene (QC): 6 (6-MET) Toilet/Commode Transfer(FIM): 6 (met 05/02/17) Toilet/Commode Transfer (QC): 6 (6-MET) Shower Transfer(FIM): 5 (exceeded 05/02/17) Additional Goals: 1-Demonstrate ADL Tasks, 2-Verbalize Understanding, 3- ImproveStrength/Miranda 1=Demonstrate adherence to instructed precautions during ADL tasks. 2=Patient will verbalize/demonstrate understanding of assistive devices/ modifications for ADL. 3=Patient will improve strength/tolerance for activity to enable patient to perform ADL's. DARIO RUCKER OT May 03, 2017 13:24
--- NOTE | 2017-05-03 14:30 | PM & R (SOAP) Progress Note ---
Subjective Time Seen by Provider: 12:00 Subjective/Events-last exam Patient discharged to home with spouse and HHC today Appreciate DR Angel note and orders. Objective Exam Last Set of Vital Signs Vital Signs Date Time Temp Pulse Resp B/P (MAP) Pulse Ox O2 Delivery O2 Flow Rate FiO2 05/03/17 09:00 Room Air 05/03/17 06:14 96.8 87 16 142/84 97 Capillary Refill : I&O Intake and Output 05/03/17 00:00 Intake Total 1120 ml Output Total 525 ml Balance 595 ml Intake Oral 1120 ml Output Urine Total 525 ml # Voids 4 General: Alert, Oriented X3, Cooperative, No Acute Distress HEENT: Atraumatic, PERRLA, Mucous Memb Moist/[place] Neck: Supple, No JVD Lungs: Clear to Auscultation Heart: Regular Rate Abdomen: Normal Bowel Sounds, Soft, No Tenderness Extremities: Other (no edema rt leg Left AKA wrapped with minimal tenderness) Skin: Other (residual limb wrapped) Neuro: Other (Functional strength for transfers and function at W/C level of function) Psych/Mental Status: Mental Status NL Results Lab Laboratory Tests 04/30/17 16:17: Glucometer 64L 04/30/17 17:02: Glucometer 66L 04/30/17 19:19: Glucometer 180H 04/30/17 21:54: Glucometer 167H 05/01/17 05:34: Glucometer 100 05/01/17 10:58: Glucometer 99 05/01/17 16:15: Glucometer 128H 05/01/17 21:50: Glucometer 174H 05/02/17 05:00: Glucometer 105 05/02/17 11:05: Glucometer 120H 05/02/17 16:43: Glucometer 111H 05/02/17 21:35: Urine Color YELLOW, Urine Clarity CLEAR, Urine pH 6.5, Urine Specific [place] 1.015L, Urine Protein 2+H, Urine Glucose (UA) NEGATIVE, Urine Ketones NEGATIVE, Urine Nitrite NEGATIVE, Urine Bilirubin NEGATIVE, Urine Urobilinogen NORMAL, Urine Leukocyte Esterase NEGATIVE, Urine RBC (Auto) NEGATIVE, Urine RBC NONE, Urine WBC WBC, Urine Squamous Epithelial Cells RARE, Urine Crystals NONE, Urine Bacteria NONE, Urine Casts NONE, Urine Mucus NEGATIVE, Urine Culture Indicated NO 05/02/17 21:44: Glucometer 122H 05/03/17 05:14: White Blood Count 7.1, Red Blood Count 4.17L, Hemoglobin 11.4L, Hematocrit 35L, Mean Corpuscular Volume 85, Mean Corpuscular Hemoglobin 27, Mean Corpuscular Hemoglobin Concent 32, Red Cell Distribution Width 13.8, Platelet Count 420H, Mean Platelet Volume 9.4 05/03/17 06:14: Glucometer 81 05/03/17 10:54: Glucometer 156H Assessment/Plan Assessment s/p left AKA for non healing wound left BKA IDDM-accucheks running low-Insulin adjusted HTN controlled Chronic back pain s/p Lumbar spine surgery Plan Discharge today to home with spouse and HHC today F/U with Surgeon and PCP as an outpatient See orders JOHNIE RANDALL MD May 03, 2017 14:30
--- NOTE | 2017-05-03 14:30 | Therapy Team Discharge Summary ---
Therapy Discharge Summary Discharge Recommendations Date of Discharge Therapy D/C Recommendations: Home w/ Family Support Physical Therapy Patient came to rehab following a left AKA. Upon admission patient performed bed mobility with SBA, transfers with CGA, ambulated 50' with a rolling walker with CGA (no uneven surfaces at that time), and he was mod I with wheelchair mobility. Patient has been performing bed mobility and transfer training, balance and endurance training, functional strengthening, stair training, gait training, ROM, and education. Patient has made good progress during his stay and has met all of his terminal worker goals except for one of his ambulation goals. Now, patient performs bed mobility and transfers with mod I, ambulates 75' with a rolling walker with SBA (including 50' with at least 2 turns of 90 degrees and 10' over an uneven surface), he can propel a manual wheelchair 150' with mod I, and can go up and down 1 step using a rolling walker with CGA. Patient is being discharged from this facility today and will be discharged from PT at this time. PT Telecom Sales Consultant Goals Correction Goals PT Correction Goals Time Frame: May 17, 2017 Transfers (B,C,W/C) (FIM): 6 (met) Roll Left to Right (QC): 6 (met) Sit to Lying (QC): 6 (mt) Lying-Sitting on Side/Bed(QC): 6 (met) Sit to Stand (QC): 6 (met) Chair/Kmg-ow-Ifkat Xfer(QC): 6 (et) Gait (FIM): 5 Distance: 150' Walk 10 feet (QC): 4 (met) Walk 10ft-Uneven Surface(QC): 4 (met) Walk 50ft with 2 Turns (QC): 4 (met) Walk 150 ft (QC): 4 Gait Level of Assist: 5 (met) Gait Assistive Device: FWW OT Correction Goals Correction Goals Time Frame: May 17, 2017 Eating (FIM): 6 (met 05/02/17) Eating (QC): 6 (6-MET) Oral Hygiene (QC): 6 (6-MET) Grooming(FIM): 6 (met 05/02/17) Bathing(FIM): 5 (exceeded 05/02/17) Shower/Bathe Self (QC): 5 (6-exceeded) Upper Body Dressing(FIM): 6 (met 05/02/17) Upper Body Dressing (QC): 6 (6-MET) Lower Body Dressing(FIM): 6 (not met) Lower Body Dressing (QC): 6 (5-not met) On/Off Footwear (QC): 6 (met 05/02/17) Toileting(FIM): 6 (met 05/02/17) Toileting Hygiene (QC): 6 (6-MET) Toilet/Commode Transfer(FIM): 6 (met 05/02/17) Toilet/Commode Transfer (QC): 6 (6-MET) Shower Transfer(FIM): 5 (exceeded 05/02/17) Additional Goals: 1-Demonstrate ADL Tasks, 2-Verbalize Understanding, 3- ImproveStrength/Miranda 1=Demonstrate adherence to instructed precautions during ADL tasks. 2=Patient will verbalize/demonstrate understanding of assistive devices/ modifications for ADL. 3=Patient will improve strength/tolerance for activity to enable patient to perform ADL's. SAW PIÑA PT May 03, 2017 14:30
[2017-05-03 15:06] VITALS: BP 142/84
--- NOTE | 2017-05-14 10:29 | DISCHARGE SUMMARY ---
DATE OF SERVICE: HISTORY OF PRESENT ILLNESS: The patient is a 71-year-old male with significant peripheral vascular disease who underwent left below knee amputation in the past. He had rehab on this unit, did well, went home with family in [place], [place]. He was modified independent at the wheelchair level. He unfortunately developed dehiscence after a fall, went on to have a left above the knee amputation with Dr. Salgado on 04/22/2017 at [facility] in [place], [place]. The continued on Levemir and sliding scale insulin for his diabetes mellitus. Medications were restarted postoperatively for his hypertension. He had a course of IV antibiotics, which has now been discontinued. The patient was referred to inpatient rehabilitation unit [facility] for ongoing amputee rehabilitation as he lives in [place], [place] with his . He states he is having no difficulty with his right leg at this point. His a residual left limb above the knee is wrapped. He is utilizing hydrocodone for pain control. He did have a transfusion of 2 units packed red blood cells postop on 04/24/2017 for acute blood loss anemia. He had some postoperative tachycardia as well, which resolved with his Coreg and his creatinine returned to baseline at 1.2. PAST MEDICAL HISTORY: Hypertension tachycardia, insulin-dependent diabetes mellitus, BPH, chronic back pain, depression/anxiety, prostatectomy, lumbar spine surgery, prior revascularization surgeries for peripheral vascular disease, prior left BKA. MEDICAL COURSE: The patient was followed by Dr. Anaya and Thuan while on rehab unit. His Accu-Cheks were monitored and insulin adjusted accordingly. CBC on 05/03/2017 revealed WBC 7.1, H and H 11.4/35. Platelet count 428k. Chemistry on 04/27/2017 showed BUN 27, normal electrolytes normal, total protein and albumin as well as liver function tests. UA was negative on 05/02/2017. Glucometer readings from 05/01 to 05/03 varied between 81 and 174. He was afebrile during his stay. His pulse was 87 on 05/03, respirations 18, blood pressure 142/84, O2 sat 97% on room air. REHABILITATION COURSE: He was assessed by speech therapy upon admission to unit, found to be intact. Cognitively and they signed off. OT notes upon admission, the patient required set up for grooming and upper body dressing, min assist for bathing, lower body dressing and transfers. The patient made good progress with therapy and by discharge, was completing transfers and ADLs with modified independence except lower body dressing which is set up. PT notes upon admission, the patient performed bed mobility with standby assist, transfers with contact guard, could ambulate 50 feet with a wheeled walker with contact guard assist. He was modified independent with wheelchair mobility. The patient made good progress during his stay and upon discharge he is modified independent with bed mobility and transfers, standby assist for ambulation 75 feet with a wheeled walker. He could propel a manual wheelchair 150 feet with modified independence and can go up and down one step using a wheeled walker with a contact guard. DISCHARGE INSTRUCTIONS: The patient is discharged to home with his with home health services. The patient will have followup with Dr. Salgado, his surgeon and his PCP in 1 to 2 weeks. Continue current diet and home Accu-Cheks. DISCHARGE MEDICATIONS: 1. Coreg 37.5 mg p.o. b.i.d. 2. MiraLax 17 grams p.o. at bedtime. 3. Amitriptyline 25 mg p.o. b.i.d. 4. ASA 325 mg p.o. daily. 5. Digoxin 250 mcg p.o. daily. 6. Colace 100 mg p.o. b.i.d. 7. Bydureon pen 2 mg subcu on . 8. Proscar 5 mg p.o. at bedtime. 9. Hydralazine 10 mg p.o. b.i.d. 10. Hydrocodone apap 10/325 one tablet p.o. q. 6 hours p.r.n. moderate pain. 11. Humalog insulin sliding scale home regimen subcu AC. 12. Lisinopril 40 mg p.o. q. daily. 13. Metformin 1000 mg p.o. b.i.d. 14. Foltanx 1 tablet p.o. t.i.d. DISCHARGE DIAGNOSES: 1. Rehabilitation ambulatory dysfunction secondary to dehiscence amputation left stump, revision to [facility], Dr. Salgado. Nonweightbearing left lower extremity. 2. Diabetes type 2 with hypoglycemia. 3. Hypertension with chronic kidney disease. 4. Tachycardia resolved with meds. 5. Acute blood loss anemia, improving. 6. Postop constipation, treated. 7. Coronary artery disease, stable on meds. 8. Long-term use insulin. 9. Long-term use of oral meds for diabetes,code [id number]. 10. History of tobaccoism, currently abstaining. CONDITION AT DISCHARGE: Improved and stable. PROGNOSIS: Rehab prognosis appears good for continued improvement at home with ongoing therapies. He may certainly be a prosthetic candidate in the future, he will discuss this with Dr. Salgado and his PCP. Job ID: [id number] DocumentID: [id number] Dictated Date: 05/14/2017 09:51:09 Softball Umpire Date: 05/14/2017 10:28:50 Dictated By: JOHNIE ANAYA MD MTDD
== END 2017-05-03 13:00 | disposition home health service (06) | DRG 560 ==
LOC: ENPENDDIS 05-03 11:00
PROVIDERS: ADMIT Physical Medicine & Rehabilitation; ATTEND Physical Medicine & Rehabilitation
DX: Z47.81 Encounter for orthopedic aftercare following surgical amputation (principal); Z89.612 Acquired absence of left leg above knee; E11.649 Type 2 diabetes mellitus with hypoglycemia without coma; I12.9 Hypertensive chronic kidney disease with stage 1 through stage 4 chronic kidney disease, or unspecified chronic kidney disease; R00.0 Tachycardia, unspecified; D62 Acute posthemorrhagic anemia; K59.00 Constipation, unspecified; I25.10 Atherosclerotic heart disease of native coronary artery without angina pectoris; Z79.4 Long term (current) use of insulin; Z79.84 Long term (current) use of oral hypoglycemic drugs; Z87.891 Personal history of nicotine dependence
CPT/HCPCS: 36415; 80053; 81000; 82962; 85025; 85027

== ENCOUNTER → 2017-05-22 | Outpatient (CLI) | payer MEDICARE ==
[~2017-05-22] MED LIST changes: +CARV12.53 PO; +CEFE1VIA4 IV; +DOCU-143 PO; +FINA5TAB6 PO; +HYDR-3922 PO; +INSU100I29 SQ; +PAMI30VI8 SQ; +POLY17PO23 PO
== END ==
LOC: WOUNDCARE 09:19
PROVIDERS: ATTEND Surgery
DX: E11.622 Type 2 diabetes mellitus with other skin ulcer (principal); L97.122 Non-pressure chronic ulcer of left thigh with fat layer exposed; I70.241 Atherosclerosis of native arteries of left leg with ulceration of thigh; Z89.612 Acquired absence of left leg above knee
CPT/HCPCS: 87070; 87075; 87077; 87186; 87205; 99213

== ENCOUNTER → 2017-05-29 | Outpatient (CLI) | payer MEDICARE ==
[~2017-05-29] MED LIST changes: +ISOS30TA3 PO; +SENN-120 PO; +hydrALAZINE (APESOLINE) 20 MG/ML VIAL ONE
== END ==
LOC: WOUNDCARE 10:38
PROVIDERS: ATTEND Surgery
DX: E11.622 Type 2 diabetes mellitus with other skin ulcer (principal); I70.241 Atherosclerosis of native arteries of left leg with ulceration of thigh; L97.121 Non-pressure chronic ulcer of left thigh limited to breakdown of skin
CPT/HCPCS: 99212

== ENCOUNTER 2017-05-30 22:38 | Day surgery (SDC) | payer MEDICARE ==
[~2017-05-30] VITALS: Ht 175.3 cm; Wt 63.5 kg
[~2017-05-30 22:38] MED LIST changes: -ISOS30TA3 PO; -SENN-120 PO; -hydrALAZINE (APESOLINE) 20 MG/ML VIAL ONE
--- NOTE | 2017-05-30 23:25 | ED Cardiac General ---
History of Present Illness General Chief Complaint: Cardiac/General Problems Stated Complaint: BP PROBLEMS Nursing Triage Note: PT REPORTS HE HAS BEEN HYPERTENSIVE TODAY. HE REPORTS HE REALIZED HE MISSED HIS DOSE OF HYDRALIZINE HE FOUND IT ON THE FLOOR THIS AFTERNOON. HE IS ALSO C/O NAUSEA. HE DENIES SOA, VOMITING, FEVER, OR COUGH. History of Present Illness Time seen by provider: 23:16 Initial Comments Patient presents to ER by private conveyance with his with a chief complaint this evening just prior to arrival he started feeling some chest pressure and he thought it might of been heartburn but when he checked his blood pressure he realized it was quite elevated 180s over 100. He takes hydralazine twice a day and he missed his morning dose but he took it as soon as he realized about 5:00 this evening. He is not having any nausea, chills, fever, numbness, tingling in his neck jaw arms or shoulder. He is not on any sweats or chills. 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 He is on antibiotics for a wound infection. His initial surgery was in January at which time he had a catheter placed by Dr. Clifton in his legs and stents placed in both legs. He also was given a heart catheter in January and was told that he had nothing his heart to worry about. He has no history of coronary disease however as peripheral disease , high blood pressure, hypercholesterol, diabetes. No thyroid disease and he quit smoking in 1979. Allergies and Home Medications Allergies Coded Allergies: Sulfa (Sulfonamide Antibiotics) (Verified Allergy, Severe, HIVES, 02/05/17) temazepam (Verified Allergy, Severe, 02/05/17) MENTAL CONFUSION pravastatin (Verified Adverse Reaction, Severe, RASH, 02/05/17) clopidogrel (Verified Adverse Reaction, Unknown, 02/05/17) Home Medications Amitriptyline HCl 25 Mg Tablet, 25 MG PO BID for 30 Days, #60 Prescribed by: JOHNIE RANDALL on 05/02/17 1103 Aspirin 325 Mg Tablet, 325 MG PO DAILY, (Reported) Carvedilol 12.5 Mg Tablet, 37.5 MG PO BID for 30 Days, #60 Prescribed by: JOHNIE RANDALL on 05/02/17 1103 Digoxin 250 Mcg Tablet, 250 MCG PO DAILY for 30 Days, #30 Prescribed by: JOHNIE RANDALL on 05/02/17 110 Docusate Sodium 100 Mg Capsule, 100 MG PO BID, (Reported) Exenatide Microspheres 2 Mg/0.65 Ml Pen.injctr, 2 MG SQ Th, (Reported) Finasteride 5 Mg Tablet, 5 MG PO HS for 30 Days, #30 Prescribed by: JOHNIE RANDALL on 05/02/17 1103 Hydralazine HCl 10 Mg Tablet, 10 MG PO BID for 30 Days, #60 Prescribed by: JOHNIE RANDALL on 05/02/17 1103 Hydrocodone/Acetaminophen 1 Each Tablet, 1 TAB PO Q6H PRN for PAIN-MODERATE for 14 Days, #60 Prescribed by: JOHNIE RANDALL on 05/02/17 1103 Insulin Lispro 100 Unit/1 Ml Cartridge, SQ AC PRN for BLOOD SUGAR, (Reported) Lisinopril 40 Mg Tablet, 40 MG PO DAILY for 30 Days, #30 Prescribed by: JOHNIE RANDALL on 05/02/17 1103 Metformin HCl 1,000 Mg Tablet, 1,000 MG PO BID for 30 Days, #60 Prescribed by: JOHNIE RANDALL on 05/02/17 1103 Methyl-B12/l-Mefolate/B6 Phos 1 Each Tablet, 1 TAB PO TID, (Reported) Polyethylene Glycol 3350 17 Gm Powd.pack, 17 GM PO HS for 30 Days, #30 Prescribed by: JOHNIE RANDALL on 05/02/17 1103 Review of Systems Constitutional: No chills, No diaphoresis, No fever, No malaise EENTM: No Eye Pain, No Ear Pain Respiratory: Denies Cough, Denies Shortness of Air Cardiovascular: See HPI, Denies Chest Pain (substernal chest pressure), Denies Edema, Denies Lightheadedness, Denies Palpitations, Denies Syncope Gastrointestinal: Denies Abdomen Distended, Denies Abdominal Pain, Denies Diarrhea, Denies Nausea Genitourinary: Denies Burning, Denies Discharge, Denies Drainage Musculoskeletal: No back pain, No joint pain Skin: No pruritus, No rash Psychiatric/Neurological: Denies Headache, Denies Numbness, Denies Paresthesia Past Lyjbqnh-Fhitsy-Eiqukn Hx Patient Social History Alcohol Use: Past History Recreational Drug Use: No (Hx in ) Smoking Status: Former Smoker Type Used: Cigars Former Smoker, Quit: Oct 07, 1979 2nd Hand Smoke Exposure: No Recent Foreign Travel: No Contact w/Someone Who Travel: No Recent Infectious Disease Expo: No Recent Hopitalizations: No (Left AKA- Turcios) Physical Abuse: No Sexual Abuse: No Seasonal Allergies Seasonal Allergies: No Surgeries History of Surgeries: Yes Surgeries: Amputation, Orthopedic, Prostatectomy, Vascular Surgery Respiratory History of Respiratory Disorde: Yes Respiratory Disorders: Sleep Apnea Currently Using CPAP: No Currently Using BIPAP: No Cardiovascular History of Cardiac Disorders: Yes Cardiac Disorders: Coronary Artery Disease, High Cholesterol, Hypertension, Peripheral Vascular Neurological History of Neurological Disord: Yes Neurological Disorders: Neuropathy Reproductive System Hx Reproductive Disorders: No Sexually Transmitted Disease: No HIV/AIDS: No Genitourinary History of Genitourinary Disor: Yes Genitourinary Disorders: Benign Prostatic Hyperpl, Prostate Problems Gastrointestinal History of Gastrointestinal Di: No Musculoskeletal History of Musculoskeletal Dis: Yes (Osteoarthritis) Musculoskeletal Disorders: Chronic Back Pain Endocrine History of Endocrine Disorders: Yes Endocrine Disorders: Diabetes, Insulin dep HEENT History of HEENT Disorders: Yes (Cataract- right eye) HEENT Disorders: Cataract Loss of Vision: Denies Hearing Impairment: Denies Cancer History of Cancer: No Did You Recieve Any Treatments: No Psychosocial History of Psychiatric Problem: Yes Behavioral Health Disorders: Anxiety, Depression Suicide Risk Score: 0 Integumentary History of Skin or Integumenta: Yes (GANGRENE AND INFECTION IN LEFT FOOT) Skin/Integumentary Disorders: Recent Skin Changes Blood Transfusions History of Blood Disorders: No Adverse Reaction to a Blood Tr: No Family Medical History Family Medial History: Abdominal aortic aneurysm G8 SISTER Alcoholism G8 BROTHER G8 BROTHER G8 BROTHER Arthritis G8 BROTHER G8 BROTHER G8 BROTHER G8 BROTHER G8 BROTHER G8 SISTER G8 SISTER Cardiovascular disease G8 SISTER Diabetes mellitus G8 BROTHER G8 BROTHER G8 BROTHER G8 SISTER G8 SISTER Drug abuse G8 BROTHER G8 BROTHER FH: COPD (chronic obstructive pulmonary disease) 19 FATHER FH: bladder cancer 19 MOTHER FH: prostate cancer 19 FATHER Headache disorder G8 BROTHER G8 BROTHER G8 BROTHER G8 BROTHER G8 BROTHER G8 BROTHER G8 BROTHER G8 BROTHER G8 SISTER G8 SISTER G8 SISTER G8 SISTER Hypercholesterolemia G8 BROTHER G8 BROTHER G8 BROTHER G8 BROTHER G8 BROTHER G8 SISTER G8 SISTER G8 SISTER G8 SISTER Hypertension 19 FATHER G8 BROTHER G8 BROTHER G8 BROTHER G8 BROTHER G8 BROTHER G8 BROTHER G8 BROTHER G8 BROTHER G8 SISTER G8 SISTER G8 SISTER G8 SISTER Thyroid disease Tuberculosis 19 FATHER Physical Exam Vital Signs Vital Sign - Last 12Hours 05/30/17 23:05 Temp 98.3 Pulse 100 Resp 27 B/P (MAP) 182/85 Pulse Ox 96 O2 Delivery Room Air Capillary Refill : Less Than 3 Seconds General Appearance: No Apparent Distress, WD/WN HEENT: PERRL/EOMI, Pharynx Normal Neck: Normal Inspection, Non Tender Respiratory: Chest Non Tender, Lungs Clear, Normal Breath Sounds Cardiovascular: No Edema, No Gallop, No JVD, No Murmur, Normal Peripheral Pulses Gastrointestinal: Normal Bowel Sounds, Non Tender, Soft Extremity: Normal Capillary Refill, No Calf Tenderness, No Pedal Edema, Other ( left AKA dressed) Neurologic/Psychiatric: Alert, Oriented x3 Skin: Normal Color, Warm/Dry Lymphatic: No Adenopathy Progress/Results/Core Measures Results/Orders Lab Results Laboratory Tests Test 05/30/17 23:38 Range/Units White Blood Count 8.4 4.3-11.0 10^3/uL Red Blood Count 4.20 L 4.35-5.85 10^6/uL Hemoglobin 11.4 L 13.3-17.7 G/DL Hematocrit 35 L 40-54 % Mean Corpuscular Volume 84 80-99 FL Mean Corpuscular Hemoglobin 27 25-34 PG Mean Corpuscular Hemoglobin Concent 33 32-36 G/DL Red Cell Distribution Width 14.6 H 10.0-14.5 % Platelet Count 241 130-400 10^3/uL Mean Platelet Volume 10.5 H 7.4-10.4 FL Neutrophils (%) (Auto) 72 42-75 % Lymphocytes (%) (Auto) 15 12-44 % Monocytes (%) (Auto) 8 0-12 % Eosinophils (%) (Auto) 5 0-10 % Basophils (%) (Auto) 0 0-10 % Neutrophils # (Auto) 6.0 1.8-7.8 X 10^3 Lymphocytes # (Auto) 1.3 1.0-4.0 X 10^3 Monocytes # (Auto) 0.7 0.0-1.0 X 10^3 Eosinophils # (Auto) 0.4 H 0.0-0.3 10^3/uL Basophils # (Auto) 0.0 0.0-0.1 10^3/uL Prothrombin Time 13.1 12.2-14.7 SEC INR Comment 1.0 0.8-1.4 Activated Partial Thromboplast Time 27 24-35 SEC Sodium Level 141 135-145 MMOL/L Potassium Level 5.1 H 3.6-5.0 MMOL/L Chloride Level 109 H 98-107 MMOL/L Carbon Dioxide Level 21 21-32 MMOL/L Anion Gap 11 5-14 MMOL/L Blood Urea Nitrogen 17 7-18 MG/DL Creatinine 0.86 0.60-1.30 MG/DL Estimat Glomerular Filtration Rate > 60 BUN/Creatinine Ratio 20 Glucose Level 109 H 70-105 MG/DL Calcium Level 10.0 8.5-10.1 MG/DL Magnesium Level 1.8 1.8-2.4 MG/DL Total Bilirubin 0.2 0.1-1.0 MG/DL Aspartate Amino Transf (AST/SGOT) 12 5-34 U/L Alanine Aminotransferase (ALT/SGPT) 13 0-55 U/L Alkaline Phosphatase 89 40-136 U/L Troponin I < 0.30 <0.30 NG/ML Total Protein 7.0 6.4-8.2 GM/DL Albumin 3.6 3.2-4.5 GM/DL Digoxin Level 1.38 0.80-2.00 NG/ML My Orders Orders - MART GALLARDO Cbc With Automated Diff (05/30/17 23:19) Comprehensive Metabolic Panel (05/30/17 23:19) Digoxin (05/30/17 23:19) Magnesium (05/30/17 23:19) Troponin I (05/30/17 23:19) Chest 1 View, Ap/Pa Only (05/30/17 23:19) Ekg Tracing (05/30/17 23:19) Monitor-Rhythm Ecg Trace Only (05/30/17 23:19) Saline Lock/Iv-Start (05/30/17 23:19) Hydralazine Tablet (Apresoline Tablet) (05/30/17 23:30) Antacid Suspension (Mylanta Suspension (05/30/17 23:30) Lidocaine 2% Viscous 15 Ml (Xylocaine Vi (05/30/17 23:30) Protime With Inr (05/30/17 23:19) Partial Thromboplastin Time (05/30/17 23:19) Hydralazine Tablet (Apresoline Tablet) (05/31/17 00:15) Medications Given in ED Current Medications Medications Dose Ordered Sig/Rosa Route Start Time Stop Time Status Last Admin Dose Admin Al Hydrox/Mg Hydrox/Simethicone 30 ml ONCE ONCE PO 05/30/17 23:30 05/30/17 23:32 DC 05/31/17 00:05 30 ML Hydralazine HCl 12.5 mg ONCE ONCE PO 05/31/17 00:15 05/31/17 00:16 DC 05/31/17 00:20 12.5 MG Lidocaine HCl 15 ml ONCE ONCE PO 05/30/17 23:30 05/30/17 23:32 DC 05/31/17 00:05 15 ML Vital Signs/I&O Vital Sign - Last 12Hours 05/30/17 23:05 Temp 98.3 Pulse 100 Resp 27 B/P (MAP) 182/85 Pulse Ox 96 O2 Delivery Room Air Blood Pressure Mean: 117 ECG Initial ECG Impression Date: May 30, 2017 Initial ECG Impression Time: 23:26 Initial ECG Rate: 99 Initial ECG Rhythm: Normal Sinus Initial ECG Intervals: Normal Initial ECG Impression: Normal, Nonspecific Changes Initial ECG Comparisson: No Previous ECG Available Comment No atrial fibrillation or ST elevation or depression. Diagnostic Imaging Diagonstic Imaging: Xray Plain Films/CT/US/NM/MRI: chest Comments Unremarkable chest x-ray without acute cardiopulmonary processes. There is a right elevated hemidiaphragm seen in previous x-rays. Reviewed: Reviewed by Me Consults Consults : Consulting Physician: REBECA GRANT MD Consults Notes [address] Grant and discussed the case and he feels a overnight observation would be warranted despite having a recent clean catheter. Departure Communication Time/Spoke to Admitting Phy: [phone] Communication Saleem; Consult Cardio Impression Impression: Primary Impression: ACS (acute coronary syndrome) Additional Impression: Chest pressure Disposition: ADMITTED INPATIENT (obs) Condition: Stable Admissions Decision to Admit Reason: Admit from ER (General) Decision to Admit/Date: May 31, 2017 Time/Decision to Admit Time: 00:34 Departure-Patient Inst. Referrals: BEAU CHANG DO (PCP) Primary Care Physician MART GALLARDO May 30, 2017 23:25
[2017-05-30] MEDS ORDERED: LIDOCAINE 2% VISCOUS 15 ML UDC PO ONE (23:30)
[2017-05-30] MEDS ORDERED: ANTACID SUSP 30 ML UDC (MYLANTA) PO ONE (23:30)
[2017-05-30 23:47] LABS: BASOPHILS % (AUTO) 0 % (0-10); EOSINOPHILS # (AUTO) 0.4 10^3/uL (0.0-0.3); EOSINOPHILS % (AUTO) 5 % (0-10); LYMPHOCYTES # (AUTO) 1.3 X 10^3 (1.0-4.0); LYMPHOCYTES % (AUTO) 15 % (12-44); MEAN CORPUSCULAR HEMOGLOBIN 27 PG (25-34); MEAN CORPUSCULAR HGB CONC 33 G/DL (32-36); MEAN CORPUSCULAR VOLUME 84 FL (80-99); MEAN PLATELET VOLUME 10.5 FL (7.4-10.4); MONOCYTES # (AUTO) 0.7 X 10^3 (0.0-1.0); MONOCYTES % (AUTO) 8 % (0-12); NEUTROPHILS % (AUTO) 72 % (42-75); PLATELET COUNT 241 10^3/uL (130-400); RED CELL DISTRIBUTION WIDTH 14.6 % (10.0-14.5); WHITE BLOOD COUNT 8.4 10^3/uL (4.3-11.0)
[2017-05-30 23:55] LABS: PROTHROMBIN TIME PATIENT 13.1 SEC (12.2-14.7)
[2017-05-31] VITALS (34 sets, daily range): BP systolic 134–211; BP diastolic 75–107
[2017-05-31 00:06] LABS: ALANINE AMINOTRANSFERASE 13 U/L (0-55); ALBUMIN 3.6 GM/DL (3.2-4.5); ANION GAP 11 MMOL/L (5-14); ASPARTATE AMINO TRANSFERASE 12 U/L (5-34); BILIRUBIN,TOTAL 0.2 MG/DL (0.1-1.0); BLOOD UREA NITROGEN 17 MG/DL (7-18); BUN/CREATININE RATIO 20; CARBON DIOXIDE 21 MMOL/L (21-32); CHLORIDE 109 MMOL/L (98-107); CREATININE SERUM 0.86 MG/DL (0.60-1.30); GFR ESTIMATED > 60; GLUCOSE 109 MG/DL (70-105); MAGNESIUM 1.8 MG/DL (1.8-2.4); POTASSIUM 5.1 MMOL/L (3.6-5.0); SODIUM 141 MMOL/L (135-145)
[2017-05-31 00:12] LABS: DIGOXIN 1.38 NG/ML (0.80-2.00); TROPONIN I < 0.30 NG/ML (<0.30)
[2017-05-31] MEDS ORDERED: hydrALAZINE (APRESOLINE) 25 MG TAB PO ONE (00:15)
[2017-05-31] MEDS ORDERED: ASPIRIN 81 MG CHEW (CHILDREN'S ASA) PO ONE (00:45)
[2017-05-31] MEDS ORDERED: NITROGLYCERIN SUBLINGUAL 0.4 MG TAB (NITROSTAT) SL PRN (03:00)
[2017-05-31] MEDS ORDERED: morphine INJ 4 MG/ML 1 ML (VIAL/SYRINGE) IV PRN (03:00)
[2017-05-31 05:41] LABS: BASOPHILS % (AUTO) 0 % (0-10); EOSINOPHILS # (AUTO) 0.5 10^3/uL (0.0-0.3); EOSINOPHILS % (AUTO) 8 % (0-10); LYMPHOCYTES # (AUTO) 1.6 X 10^3 (1.0-4.0); LYMPHOCYTES % (AUTO) 24 % (12-44); MEAN CORPUSCULAR HEMOGLOBIN 28 PG (25-34); MEAN CORPUSCULAR HGB CONC 33 G/DL (32-36); MEAN CORPUSCULAR VOLUME 84 FL (80-99); MEAN PLATELET VOLUME 10.7 FL (7.4-10.4); MONOCYTES # (AUTO) 0.5 X 10^3 (0.0-1.0); MONOCYTES % (AUTO) 8 % (0-12); NEUTROPHILS % (AUTO) 60 % (42-75); PLATELET COUNT 203 10^3/uL (130-400); RED CELL DISTRIBUTION WIDTH 14.6 % (10.0-14.5); WHITE BLOOD COUNT 6.7 10^3/uL (4.3-11.0)
[2017-05-31 06:01] LABS: ALANINE AMINOTRANSFERASE 14 U/L (0-55); ALBUMIN 3.3 GM/DL (3.2-4.5); ANION GAP 7 MMOL/L (5-14); ASPARTATE AMINO TRANSFERASE 14 U/L (5-34); BILIRUBIN,TOTAL 0.2 MG/DL (0.1-1.0); BLOOD UREA NITROGEN 16 MG/DL (7-18); BUN/CREATININE RATIO 19; CALCIUM 9.6 MG/DL (8.5-10.1); CARBON DIOXIDE 25 MMOL/L (21-32); CHLORIDE 107 MMOL/L (98-107); CREATININE SERUM 0.86 MG/DL (0.60-1.30); GFR ESTIMATED > 60; GLUCOSE 113 MG/DL (70-105); POTASSIUM 5.2 MMOL/L (3.6-5.0); SODIUM 139 MMOL/L (135-145); TOTAL PROTEIN 6.4 GM/DL (6.4-8.2)
[2017-05-31] MEDS: inSUlin (REGULAR) HUMAN 1 UNIT/0.01 ML (CHARGE PER UNIT) SC SCH ×3 (06:06→16:22)
[2017-05-31 06:08] LABS: TROPONIN I < 0.30 NG/ML (<0.30)
[2017-05-31] MEDS ORDERED: VANCOMYCIN 1500 MG/NS 500 ML IVPB IV SCH ×4 (07:00→10:00)
[2017-05-31] MEDS ORDERED: CATHETER FLUSH 10 ML SYR IV PRN (08:00)
--- NOTE | 2017-05-31 08:29 | Diagnostic Imaging Report ---
INDICATION: Hypertension. Frontal chest obtained at 11:42 p.m. and compared to 03/06/17 FINDINGS: Heart is normal in size. Mediastinal silhouette is unremarkable. There is some minimal right basilar atelectasis. There is no pneumothorax or pleural fluid. IMPRESSION: Minimal right basilar atelectasis with poor inspiration. No acute process in the chest otherwise seen. Left-sided PICC line tip is at the SVC right atrial junction. Dictated by: Dictated on workstation # [id number]
[2017-05-31] MEDS ORDERED: CARVEDILOL 12.5 MG (COREG) TABLET PO SCH ×2 (09:00→21:00)
[2017-05-31] MEDS ORDERED: DOCUSATE SODIUM 100 MG (COLACE) CAP PO SCH (09:00)
[2017-05-31] MEDS ORDERED: ASPIRIN E.C. 325 MG (ECOTRIN) TABLET PO SCH (09:00)
[2017-05-31] MEDS ORDERED: AMITRIPTYLINE 25 MG (ELAVIL) TAB PO SCH ×2 (09:00→21:00)
[2017-05-31] MEDS ORDERED: FINASTERIDE (PROSCAR) 5 MG TAB PO SCH ×2 (09:00→21:00)
[2017-05-31] MEDS ORDERED: lisINopril 20 MG (ZESTRIL) TAB PO SCH (09:00)
[2017-05-31] MEDS ORDERED: DIGOXIN 0.25 MG (LANOXIN) TAB PO SCH (09:00)
[2017-05-31] MEDS ORDERED: NS IV 1000 ML 0 ML ONE (09:36)
[2017-05-31] MEDS ORDERED: HEParin (CATH LAB) 2,000 ML IV ONE (09:36)
[2017-05-31] MEDS ORDERED: fentaNYL INJECTION 100 MCG/2 ML AMP ONE (09:38)
[2017-05-31] MEDS ORDERED: MIDAZOLAM 5 MG/5 ML (VERSED) VIAL ONE (09:38)
[2017-05-31] MEDS ORDERED: NS IV 1000 ML 1,000 ML ONE (09:41)
[2017-05-31] MEDS ORDERED: LISI40TA PO (09:44)
[2017-05-31] MEDS ORDERED: AMIT25TA9 PO (09:44)
[2017-05-31] MEDS ORDERED: HYDR-3922 PO (09:44)
[2017-05-31] MEDS ORDERED: METF1000 PO (09:44)
[2017-05-31] MEDS ORDERED: FINA5TAB6 PO (09:44)
[2017-05-31] MEDS ORDERED: DIGO250T PO (09:44)
[2017-05-31] MEDS ORDERED: CARV25TA PO (09:46)
[2017-05-31] MEDS ORDERED: SENN-120 PO (09:51)
[2017-05-31] MEDS ORDERED: HYDR-3820 PO (09:51)
[2017-05-31] MEDS ORDERED: NS IV 1000 ML 1,000 ML IV SCH ×2 (10:00→10:32)
--- NOTE | 2017-05-31 10:03 | Consultation-Cardiology ---
HPI-Cardiology Cardiology Consultation Date of Consultation 05/31/17 Date of Admission Time Seen by Provider: 07:45 Indication: chest pain HPI 71 years old gentleman with history of peripheral arterial disease, moderate coronary artery disease, hypertension, hyperlipidemia, underwent left AKA last month. Woke up with chest pain described as dull achiness in the retrosternal area, felt that it was heartburn initially but his blood pressure was elevated. Patient missed his morning medication. Took the medicine in the afternoon but continue to have elevated blood pressure, upper arrival to the hospital he was still having active pain. Got better after nitroglycerin. Denied any palpitation, admit having some shortness of breath. No syncope or near syncopal episodes. Patient had history of claudication with extensive peripheral arterial disease which will be discussed below Home Medications & Allergies Allergies: Coded Allergies: Sulfa (Sulfonamide Antibiotics) (Verified Allergy, Severe, HIVES, 02/05/17) temazepam (Verified Allergy, Severe, 02/05/17) MENTAL CONFUSION pravastatin (Verified Adverse Reaction, Severe, RASH, 02/05/17) clopidogrel (Verified Adverse Reaction, Unknown, 02/05/17) Home Medication List Reviewed: Yes WVX-Aimvxc-Euhcia Hx Patient Social History Marital Status: Alcohol Use: Past History Recreational Drug Use: No (Hx in ) Smoking Status: Former Smoker Former smoker/When Quit: Dec 29, 1979 Type Used: Cigars 2nd Hand Smoke Exposure: No Recent Foreign Travel: No Recent Infectious Disease Expo: No Recent Hopitalizations: No (Left AKA- Turcios) Physical Abuse Screen: No Sexual Abuse: No Past Medical History Past medical history as discussed below Family Medical History Family History: Abdominal aortic aneurysm G8 SISTER Alcoholism G8 BROTHER G8 BROTHER G8 BROTHER Arthritis G8 BROTHER G8 BROTHER G8 BROTHER G8 BROTHER G8 BROTHER G8 SISTER G8 SISTER Cardiovascular disease G8 SISTER Diabetes mellitus G8 BROTHER G8 BROTHER G8 BROTHER G8 SISTER G8 SISTER Drug abuse G8 BROTHER G8 BROTHER FH: COPD (chronic obstructive pulmonary disease) 19 FATHER FH: bladder cancer 19 MOTHER FH: prostate cancer 19 FATHER Headache disorder G8 BROTHER G8 BROTHER G8 BROTHER G8 BROTHER G8 BROTHER G8 BROTHER G8 BROTHER G8 BROTHER G8 SISTER G8 SISTER G8 SISTER G8 SISTER Hypercholesterolemia G8 BROTHER G8 BROTHER G8 BROTHER G8 BROTHER G8 BROTHER G8 SISTER G8 SISTER G8 SISTER G8 SISTER Hypertension 19 FATHER G8 BROTHER G8 BROTHER G8 BROTHER G8 BROTHER G8 BROTHER G8 BROTHER G8 BROTHER G8 BROTHER G8 SISTER G8 SISTER G8 SISTER G8 SISTER Thyroid disease Tuberculosis 19 FATHER Constitutional: see HPI, malaise, weakness EENTM: see HPI, no symptoms reported Respiratory: see HPI, No cough, dyspnea on exertion, No hemoptysis, No orthopnea, No phlegm, No short of breath, No stridor, No wheezing, No other Cardiovascular: see HPI, chest pain, No edema, No Hx of Intervention, No palpitations, No syncope, vascular heart diseas, No other Gastrointestinal: no symptoms reported, see HPI Genitourinary: no symptoms reported, see HPI Musculoskeletal: see HPI, other (Lt AKA) Skin: no symptoms reported, see HPI Psychiatric/Neurological: No Symptoms Reported, See HPI Reviewed Test Results Reviewed Test Results Lab Laboratory Tests Test 05/30/17 23:38 05/31/17 05:32 Range/Units White Blood Count 8.4 6.7 4.3-11.0 10^3/uL Red Blood Count 4.20 L 4.00 L 4.35-5.85 10^6/uL Hemoglobin 11.4 L 11.0 L 13.3-17.7 G/DL Hematocrit 35 L 34 L 40-54 % Mean Corpuscular Volume 84 84 80-99 FL Mean Corpuscular Hemoglobin 27 28 25-34 PG Mean Corpuscular Hemoglobin Concent 33 33 32-36 G/DL Red Cell Distribution Width 14.6 H 14.6 H 10.0-14.5 % Platelet Count 241 203 130-400 10^3/uL Mean Platelet Volume 10.5 H 10.7 H 7.4-10.4 FL Neutrophils (%) (Auto) 72 60 42-75 % Lymphocytes (%) (Auto) 15 24 12-44 % Monocytes (%) (Auto) 8 8 0-12 % Eosinophils (%) (Auto) 5 8 0-10 % Basophils (%) (Auto) 0 0 0-10 % Neutrophils # (Auto) 6.0 4.0 1.8-7.8 X 10^3 Lymphocytes # (Auto) 1.3 1.6 1.0-4.0 X 10^3 Monocytes # (Auto) 0.7 0.5 0.0-1.0 X 10^3 Eosinophils # (Auto) 0.4 H 0.5 H 0.0-0.3 10^3/uL Basophils # (Auto) 0.0 0.0 0.0-0.1 10^3/uL Prothrombin Time 13.1 12.2-14.7 SEC INR Comment 1.0 0.8-1.4 Activated Partial Thromboplast Time 27 24-35 SEC Sodium Level 141 139 135-145 MMOL/L Potassium Level 5.1 H 5.2 H 3.6-5.0 MMOL/L Chloride Level 109 H 107 98-107 MMOL/L Carbon Dioxide Level 21 25 21-32 MMOL/L Anion Gap 11 7 5-14 MMOL/L Blood Urea Nitrogen 17 16 7-18 MG/DL Creatinine 0.86 0.86 0.60-1.30 MG/DL Estimat Glomerular Filtration Rate > 60 > 60 BUN/Creatinine Ratio 20 19 Glucose Level 109 H 113 H 70-105 MG/DL Calcium Level 10.0 9.6 8.5-10.1 MG/DL Magnesium Level 1.8 1.8-2.4 MG/DL Total Bilirubin 0.2 0.2 0.1-1.0 MG/DL Aspartate Amino Transf (AST/SGOT) 12 14 5-34 U/L Alanine Aminotransferase (ALT/SGPT) 13 14 0-55 U/L Alkaline Phosphatase 89 77 40-136 U/L Troponin I < 0.30 < 0.30 <0.30 NG/ML Total Protein 7.0 6.4 6.4-8.2 GM/DL Albumin 3.6 3.3 3.2-4.5 GM/DL Digoxin Level 1.38 0.80-2.00 NG/ML Physical Exam Vital Signs Vital Sign - Last 12Hours 05/30/17 23:05 Temp 98.3 Pulse 100 Resp 27 B/P (MAP) 182/85 Pulse Ox 96 O2 Delivery Room Air Capillary Refill : Less Than 3 Seconds General Appearance: No Apparent Distress, WD/WN Eyes: Bilateral Eye Normal Inspection, Bilateral Eye PERRL, Bilateral Eye EOMI HEENT: PERRL/EOMI, TMs Normal, Normal ENT Inspection, Pharynx Normal Neck: Full Range of Motion, Normal Inspection, Non Tender, Supple Respiratory: Chest Non Tender, Lungs Clear, Normal Breath Sounds, No Accessory Muscle Use, No Respiratory Distress Cardiovascular: Regular Rate, Rhythm, No Edema, No Gallop, No JVD, Systolic Murmur Gastrointestinal: Normal Bowel Sounds, No Organomegaly, No Pulsatile Mass, Non Tender, Soft Back: Normal Inspection, No CVA Tenderness, No Vertebral Tenderness Extremity: Normal Range of Motion, No Calf Tenderness, No Pedal Edema, Other ( left AKA) Neurologic/Psychiatric: Alert, Oriented x3, No Motor/Sensory Deficits, Normal Mood/Affect Skin: Normal Color, Warm/Dry Lymphatic: No Adenopathy A/P-Cardiology Admission Diagnosis Unstable angina Coronary artery disease Peripheral arterial disease Hypertension Hyperlipidemia Assessment/Plan Chest pain resembling angina, multiple risk factors for coronary artery disease. Patient had a cardiac catheterization done in March 2016, I discussed it with Dr. Ryan Bird who reported having moderate disease diffusely small vessel disease, small coronary system. Coronary artery disease, moderate disease, planning to proceed with cardiac catheterization. Patient had multiple risk factors, classic presentation. Peripheral arterial disease, extensive disease, multiple intervention in the past, left AKA. Hypertension, transient episode of elevated blood pressure. Continue to monitor and restart blood pressure medication Hyperlipidemia, restart medication monitor lipids Diabetes mellitus, followed and managed by primary care physician Clinical Quality Measures DVT/VTE Risk/Contraindication: Risk Factor Score Per Nursin RFS Level Per Nursing on Admit: 2=Moderate REBECA HARDIN MD May 31, 2017 10:03
--- NOTE | 2017-05-31 10:03 | Cardiac Procedure Note-CS/ASA ---
Pre-Procedure Note Pre-Op Procedure Note H&P Reviewed The H&P was reviewed, patient examined and no changes noted. Date H&P Reviewed: May 31, 2017 Time H&P Reviewed: 10:03 Conscious Sedation Pre-Proced Time Reviewed: 10:03 ASA Class: 3 Airway Mallampati Classification: ([place] appropriate class) I. II. III, IV Lungs Heart ASA score ASA 1: a normal healthy patient ASA 2: a patient with a mild systemic disease (mid diabetes, controlled hypertension, obesity x ASA 3: a patient with a severe systemic disease that limits activity (angina , COPD, prior Myocardial infarction) ASA 4: a patient with an incapacitating disease that is a constant threat to life (CHF, renal failure) ASA 5: a moribund patient not expected to survive 24 hrs. (ruptured aneurysm) ASA 6: a declared brain patient whose organs are being harvested. For emergent operations, add the letter E after the classification Grade 3 Sedation Plan: Analgesia, Amnesia, Plan communicated to team members, Discussed options with patient/fam, Discussed risks with patient/fam Note The patient is an appropriate candidate to undergo the planned procedure, sedation, and anesthesia. The patient immediately re-assessed prior to indication. REBECA HARDIN MD May 31, 2017 10:03
--- NOTE | 2017-05-31 10:38 | Cardiac Cath Report ---
Cardiac Cath Report Physician (s)/Risk Reduction Counselor (s) Physician REBECA HARDIN MD Pre-Procedure Diagnosis Pre-Procedure Diagnosis: chest pain Post-Procedure Note Procedure Start Date: May 31, 2017 Procedure Start Time: 10:00 Name of Procedure: left heart catheterization Findings/Procedure Note PROCEDURE NOTE: After explaining the procedure to the patient, all pros and cons were explained, all questions were answered. The patient signed the consent and then she was placed on the cardiac catheterization laboratory. The patient was placed on the cardiac catheterization laboratory. Groin was prepped SL fashion local anesthesia was used. Sheath placed in the artery. Marga right and left catheter were used to access the coronary system. Pigtail was used to access the left ventricular cavity. Left ventriculogram was done At the end of the procedure the sheath was removed. FINDINGS: Hemodynamics LV 131/15 end-diastolic pressure 15 Aorta 139/65 mean of 95 ANATOMY: Left Main history of obstructive disease Left Anterior Descending is a smaller artery with 50 percent stenosis at the midportion, 60-70 percent stenosis distally, small vessel less than 1 mm in diameter distally. Left Circumflex case smaller artery, moderate disease at the distal circumflex artery. Right Coronory Artery a small artery, 60-70 percent stenosis at the mid portion , small artery less than 1.5 mm in diameter LV Gram was done, ejection fraction 50 percent CONCLUSION: Small coronary system, moderate to severe small vessel disease, mainly at the mid to distal portion of the vessels, arteries less than 1 mm in diameter not amendable to intervention Preserved left ventricular systolic function with ejection ejection fraction 50 percent DISCUSSION AND RECOMMENDATION: Medical therapy is recommended no intervention is warranted Anesthesia Type: Conscious Sedation Estimated blood loss (mL): 25 ml Contrast Amount: 41 ml Total Radiation Dose: 340 mGy Post-Procedure Diagnosis Post-operative diagnosis: Chest pain Coronary artery disease Peripheral arterial disease Hypertension REBECA HARDIN MD May 31, 2017 10:38
[2017-05-31] MEDS ORDERED: PATIENT MAY USE OWN MEDS, ALL PO SCH (10:45)
[2017-05-31] MEDS ORDERED: HYDROcodone/APAP 10 MG/325 MG (LORTAB) TAB PO PRN (10:45)
[2017-05-31] MEDS ORDERED: ISOS30TA3 PO (12:12)
--- NOTE | 2017-05-31 12:13 | Discharge Inst-Post CATH ---
Discharge Inst-CATH Post Cardiac Cath D/C Inst Follow Up/Plan Hold metformin for [address] Bird office in one to 2 weeks Appointment with primary care physician CARDIAC CATH DISCHARGE INSTRUCTIONS *Hold Metformin for 48 hours post heart cath. ACTIVITY * Go Home directly and rest. * Limit activity of the leg (or wrist if it was used) for 7 days including aerobics, swimming, jogging, bicycling, etc. * Restrict stair-climbing for 7 days if possible, if not, climb up with your non -cath leg, then bring together on the same step. * Avoid lifting, pushing, pulling or excessive movement of the affected extremity for 7 days. * Customary sexual activity may be resumed after 2 days-use caution not to use a position that strains or causes pain to the affected extremity. * No driving for 24 hours. * NO SMOKING. * Avoid straining for bowel movements for 7 days. * Gentle walking on level ground is allowed. * Returning to work will depend on the type of procedure and the results. Your doctor will discuss this with you. CALL YOUR DOCTOR FOR ANY OF THE FOLLOWING: *If bleeding from the puncture site occurs- Apply gentle pressure to site with clean cloth and call your doctor or EMS. * If a knot or lump forms under the skin, increases in size, or causes pain. * If bruising appears to be worsening or moving further down your leg instead of disappearing. * Temperature above 101 F. CARE OF YOUR GROIN INCISION; * Bruising or purple discoloration of the skin near the puncture site is common. * You may shower only, no bathtub bathing for 5 days. Be careful to avoid slipping as your leg may feel stiff. * If a closure device was used on your femoral artery, please see the attached guide regarding care of the device and your leg. * REMOVE the dressing from your groin the next day after your procedure in the shower. CARE OF YOUR WRIST INCISION; * Bruising or purple discoloration of the skin near the puncture site is common. * You may shower. * DO NOT submerge wrist. * Remove dressing in 24 hours. REBECA HARDIN MD May 31, 2017 12:13
--- NOTE | 2017-05-31 12:14 | Clinic Account Progress/Dx ---
Clinic Account Progress/Dx DIAGNOSIS: Date Seen by Provider: May 31, 2017 Time Seen by Provider: 12:14 Diagnosis Unstable angina Coronary artery disease Peripheral arterial disease Hypertension Hyperlipidemia REBECA HARDIN MD May 31, 2017 12:14
[2017-05-31] MEDS ORDERED: meTOprolol 5 MG/5 ML (LOPRESSOR) VIAL IV ONE (13:15)
[2017-05-31] MEDS ORDERED: ENALAPRILAT 2.5 MG/2 ML (VASOTEC) VIAL IV NR (13:15)
[2017-05-31] MEDS ORDERED: CATHETER FLUSH 10 ML SYR IV SCH (14:00)
[2017-05-31] MEDS ORDERED: ISOSORBIDE MONONITRATE 30 MG (IMDUR) TAB PO NR (14:45)
[2017-05-31] MEDS ORDERED: cloNIDine 0.2 MG (CATAPRES) TAB PO NR ×2 (14:45→16:30)
[2017-05-31] MEDS ORDERED: CARVEDILOL 37.5 MG PO SCH (21:00)
[2017-05-31] MEDS ORDERED: SENNA W/DOCUSATE (SENOKOT S) TABLET PO SCH (21:00)
[2017-05-31] MEDS ORDERED: NON-FORMULARY MEDICATION 1 EA EA (Finasteride 5 MG) PO SCH (21:00)
[2017-06-01] MEDS ORDERED: NON-FORMULARY MEDICATION 1 EA EA (Lisinopril 40 MG) PO SCH (09:00)
[2017-06-01] MEDS ORDERED: DIGOXIN 0.25 MG (LANOXIN) TAB PO SCH (09:00)
[2017-06-01] MEDS ORDERED: ISOSORBIDE MONONITRATE 30 MG (IMDUR) TAB PO SCH (09:00)
[2017-06-06] MEDS ORDERED: NON-FORMULARY MEDICATION 1 EA EA (Exenatide Microspheres (Bydureon Pen) 2 MG) SQ SCH (10:45)
== END 2017-05-31 12:13 | disposition home or self-care (01) ==
LOC: EDUNIT# 22:38 → ER 22:40 → UNDOADMOB 05-31 00:30 → ICU 05-31 00:30 → CSDo 05-31 01:25 → ICU 05-31 01:25 → CSDo 05-31 12:13 → UNDODISOB 05-31 18:08
PROVIDERS: ATTEND Internal Medicine Cardiovascular Disease
DX: I25.110 Atherosclerotic heart disease of native coronary artery with unstable angina pectoris (principal); I10 Essential (primary) hypertension; E78.5 Hyperlipidemia, unspecified; I73.9 Peripheral vascular disease, unspecified; E11.9 Type 2 diabetes mellitus without complications; Z79.899 Other long term (current) drug therapy; Z79.84 Long term (current) use of oral hypoglycemic drugs; Z89.612 Acquired absence of left leg above knee
CPT/HCPCS: 36415; 71010; 80053; 80162; 82962; 83735; 84484; 85025; 85610; 85730; 93005; 93041; 93458; 99211

== ENCOUNTER → 2017-06-05 | Outpatient (CLI) | payer MEDICARE ==
[~2017-06-05] MED LIST changes: +ISOS30TA3 PO; +SENN-120 PO
== END ==
LOC: WOUNDCARE 10:46
PROVIDERS: ATTEND Surgery
DX: E11.622 Type 2 diabetes mellitus with other skin ulcer (principal); I70.241 Atherosclerosis of native arteries of left leg with ulceration of thigh; L97.121 Non-pressure chronic ulcer of left thigh limited to breakdown of skin
CPT/HCPCS: 99212

== ENCOUNTER 2017-06-13 08:11 | Outpatient (RCR) | payer MEDICARE ==
[2017-05-24 15:47] VITALS: BP 153/69
[2017-05-25] MEDS: VANCOMYCIN 1 GM/NS 250 ML IVPB IV SCH ×2 (09:46)
[2017-05-25] MEDS: CATHETER FLUSH 10 ML SYR IV PRN ×2 (09:47→10:49)
[2017-05-25 09:51] VITALS: BP 153/65
[2017-05-26] MEDS: VANCOMYCIN 1 GM/NS 250 ML IVPB IV SCH ×2 (09:05)
[2017-05-26] MEDS: CATHETER FLUSH 10 ML SYR IV PRN ×2 (09:05→10:10)
[2017-05-26 09:25] VITALS: BP 150/70
[2017-05-27] MEDS: CATHETER FLUSH 10 ML SYR IV PRN ×2 (10:13→12:04)
[2017-05-27] MEDS: VANCOMYCIN 1 GM/NS 250 ML IVPB IV SCH ×2 (10:13)
[2017-05-27 12:05] VITALS: BP 163/76
[2017-05-28] MEDS: CATHETER FLUSH 10 ML SYR IV PRN ×2 (09:36→11:35)
[2017-05-28] MEDS: VANCOMYCIN 1500 MG/NS 500 ML IVPB IV SCH ×2 (09:36)
[2017-05-28 09:38] VITALS: BP 168/78
[2017-05-29 08:30] VITALS: BP_SYST 0; BP_SYST 153; BP_DIAS 0; BP_DIAS 76
[2017-05-29] MEDS: CATHETER FLUSH 10 ML SYR IV PRN ×2 (08:33→10:30)
[2017-05-29] MEDS: VANCOMYCIN 1500 MG/NS 500 ML IVPB IV SCH ×2 (08:34)
[2017-05-30] MEDS: VANCOMYCIN 1500 MG/NS 500 ML IVPB IV SCH ×2 (08:18)
[2017-05-30] MEDS: CATHETER FLUSH 10 ML SYR IV PRN ×2 (08:18→10:25)
[2017-05-30 08:47] VITALS: BP 176/82
[2017-06-01] MEDS: VANCOMYCIN 1500 MG/NS 500 ML IVPB IV SCH ×2 (09:01)
[2017-06-01] MEDS: CATHETER FLUSH 10 ML SYR IV PRN (09:02)
[2017-06-01 11:25] VITALS: BP 134/61
[2017-06-02] MEDS: CATHETER FLUSH 10 ML SYR IV PRN (08:16)
[2017-06-02] MEDS: VANCOMYCIN 1500 MG/NS 500 ML IVPB IV SCH ×2 (08:16)
[2017-06-02 10:23] VITALS: BP_SYST 134; BP_SYST 163; BP_DIAS 61; BP_DIAS 75
[2017-06-03] MEDS: VANCOMYCIN 1500 MG/NS 500 ML IVPB IV SCH ×2 (08:39)
[2017-06-03] MEDS: CATHETER FLUSH 10 ML SYR IV PRN ×2 (08:39→10:48)
[2017-06-03 10:49] VITALS: BP 149/83
[2017-06-04] MEDS: VANCOMYCIN 1500 MG/NS 500 ML IVPB IV SCH ×2 (08:41)
[2017-06-04 10:41] VITALS: BP 141/101
[2017-06-04] MEDS: CATHETER FLUSH 10 ML SYR IV PRN (10:41)
[2017-06-05] MEDS: VANCOMYCIN 1500 MG/NS 500 ML IVPB IV SCH ×2 (08:29)
[2017-06-05] MEDS: CATHETER FLUSH 10 ML SYR IV PRN ×2 (08:29→10:42)
[2017-06-05 08:30] VITALS: BP 148/79
[2017-06-05 10:42] VITALS: BP 148/79
[2017-06-06] MEDS: CATHETER FLUSH 10 ML SYR IV PRN ×2 (08:47→11:05)
[2017-06-06] MEDS: VANCOMYCIN 1500 MG/NS 500 ML IVPB IV SCH ×2 (09:02)
[2017-06-06 09:11] LABS: ANION GAP 5 MMOL/L (5-14); BLOOD UREA NITROGEN 18 MG/DL (7-18); BUN/CREATININE RATIO 18; CALCIUM 9.6 MG/DL (8.5-10.1); CARBON DIOXIDE 25 MMOL/L (21-32); CHLORIDE 109 MMOL/L (98-107); CREATININE SERUM 0.99 MG/DL (0.60-1.30); GFR ESTIMATED > 60; GLUCOSE 114 MG/DL (70-105); POTASSIUM 5.3 MMOL/L (3.6-5.0); SODIUM 139 MMOL/L (135-145)
[2017-06-06 11:06] VITALS: BP 158/83
[2017-06-07 08:25] VITALS: BP 150/79
[2017-06-07] MEDS: CATHETER FLUSH 10 ML SYR IV PRN ×2 (08:25→10:29)
[2017-06-07] MEDS: VANCOMYCIN 1500 MG/NS 500 ML IVPB IV SCH ×2 (08:25)
[2017-06-07 10:33] VITALS: BP 150/79
[2017-06-08] MEDS: VANCOMYCIN 1500 MG/NS 500 ML IVPB IV SCH ×2 (08:37)
[2017-06-08] MEDS: CATHETER FLUSH 10 ML SYR IV PRN (08:38)
[2017-06-08 09:12] VITALS: BP 178/91
[2017-06-08 10:53] VITALS: BP 178/91
[2017-06-09] MEDS: CATHETER FLUSH 10 ML SYR IV PRN (08:21)
[2017-06-09] MEDS: VANCOMYCIN 1500 MG/NS 500 ML IVPB IV SCH ×2 (08:23)
[2017-06-09 08:28] VITALS: BP 130/76
[2017-06-09 10:55] VITALS: BP 130/76
[2017-06-10] MEDS: VANCOMYCIN 1500 MG/NS 500 ML IVPB IV SCH ×2 (08:28)
[2017-06-10] MEDS: CATHETER FLUSH 10 ML SYR IV PRN (08:28)
[2017-06-10 08:30] VITALS: BP 146/82
[2017-06-10 10:39] VITALS: BP 146/82
[2017-06-11 08:36] VITALS: BP 135/69
[2017-06-11] MEDS: VANCOMYCIN 1500 MG/NS 500 ML IVPB IV SCH ×2 (08:36)
[2017-06-11] MEDS: CATHETER FLUSH 10 ML SYR IV PRN ×2 (08:36→10:42)
[2017-06-12] MEDS: CATHETER FLUSH 10 ML SYR IV PRN ×2 (08:35→10:38)
[2017-06-12] MEDS: VANCOMYCIN 1500 MG/NS 500 ML IVPB IV SCH ×2 (08:35)
[2017-06-12 10:40] VITALS: BP 137/73
[~2017-06-13] VITALS: Ht 175.3 cm; Wt 63.7 kg
[~2017-06-13 08:11] MED LIST changes: +NS (IVPB) 250 ML ONE; +TROUGH ORDER-PHARMACY XX NR; +TROUGH ORDER-PHARMACY XX ONE; +VANCOMYCIN 1000 MG/VIAL ONE; +VANCOMYCIN 500 MG/NS 100 ML IVPB IV NR
[2017-06-13 08:12] VITALS: BP 131/73
[2017-06-13] MEDS: VANCOMYCIN 1500 MG/NS 500 ML IVPB IV SCH ×2 (08:12)
[2017-06-13] MEDS: CATHETER FLUSH 10 ML SYR IV PRN (10:24)
[2017-06-13 10:25] VITALS: BP 131/73
[2017-06-19 11:45] VITALS: BP 0/0
== END 2017-07-06 | disposition home or self-care (01) ==
LOC: SDC 08:11
PROVIDERS: ATTEND Surgery
DX: E11.622 Type 2 diabetes mellitus with other skin ulcer (principal); L97.122 Non-pressure chronic ulcer of left thigh with fat layer exposed; I70.241 Atherosclerosis of native arteries of left leg with ulceration of thigh; B95.62 Methicillin resistant Staphylococcus aureus infection as the cause of diseases classified elsewhere
CPT/HCPCS: 36415; 36569; 36592; 76937; 80048; 80202; 96365; 96366; 99211

== ENCOUNTER → 2017-06-19 | Outpatient (CLI) | payer MEDICARE ==
[~2017-06-19] MED LIST changes: -NS (IVPB) 250 ML ONE; -TROUGH ORDER-PHARMACY XX NR; -TROUGH ORDER-PHARMACY XX ONE; -VANCOMYCIN 1000 MG/VIAL ONE; -VANCOMYCIN 500 MG/NS 100 ML IVPB IV NR
== END ==
LOC: WOUNDCARE 11:00
PROVIDERS: ATTEND Surgery
DX: E11.622 Type 2 diabetes mellitus with other skin ulcer (principal); I70.241 Atherosclerosis of native arteries of left leg with ulceration of thigh; L97.121 Non-pressure chronic ulcer of left thigh limited to breakdown of skin
CPT/HCPCS: 99212

== ENCOUNTER 2017-06-28 14:32 | Outpatient (RCR) | payer MEDICARE | END 2017-07-06 | disposition home or self-care (01) | PROVIDERS: ATTEND Internal Medicine | DX: Z89.612 Acquired absence of left leg above knee (principal) ==

== ENCOUNTER 2017-12-09 09:30 | Outpatient (RCR) | payer MEDICARE | END 2017-12-11 | disposition home or self-care (01) | PROVIDERS: ATTEND Internal Medicine | DX: Z47.81 Encounter for orthopedic aftercare following surgical amputation (principal); Z89.612 Acquired absence of left leg above knee ==

== ENCOUNTER 2018-03-06 10:30 | Outpatient (RCR) | payer MEDICARE ==
[~2018-03-06 10:30] MED LIST changes: -METF1000 PO; +METF10002 PO; -METF500T4 PO; +METF500T5 PO
== END 2018-03-12 | disposition home or self-care (01) ==
PROVIDERS: ATTEND Internal Medicine
DX: Z89.612 Acquired absence of left leg above knee (principal); Z47.81 Encounter for orthopedic aftercare following surgical amputation

== ENCOUNTER 2018-04-16 10:41 | Outpatient (RCR) | payer MEDICARE ==
[~2018-04-16 10:41] MED LIST changes: -SPIR25TA3 PO; +SPIR25TA5 PO
== END 2018-04-16 12:05 | disposition home or self-care (01) ==
PROVIDERS: ATTEND Internal Medicine
DX: Z89.612 Acquired absence of left leg above knee (principal)

== ENCOUNTER → 2019-02-13 | Outpatient (CLI) | payer MEDICARE ==
[~2019-02-13] MED LIST changes: +METF-397 PO; +METF-399 PO; -METF10002 PO; -METF500T5 PO; -POLY17PO23 PO; +POLY17PO31 PO; -SENN-120 PO; +SENN-233 PO
[2019-02-13 22:14] LABS: BILIRUBIN,URINE NEGATIVE (NEGATIVE); CLARITY,URINE CLEAR; COLOR,URINE YELLOW; LEUKOCYTE ESTERASE ,URINE 3+ (NEGATIVE); PH,URINE 7 (5-9); UROBILINOGEN,URINE NORMAL (NORMAL)
[2019-02-13 22:22] LABS: WBC,URINE 50-100 /HPF
[2019-02-13 22:23] LABS: BACTERIA,URINE FEW /HPF; SQUAMOUS EPITHELIAL CELL,UR 0-2 /HPF
[2019-02-13 22:39] LABS: GLUCOSE, URINE (UA) NEGATIVE (NEGATIVE); PROTEIN,URINE 2+ (NEGATIVE)
[2019-02-13 22:40] LABS: KETONES,URINE NEGATIVE (NEGATIVE); NITRITE,URINE NEGATIVE (NEGATIVE)
== END ==
LOC: LABNPT 20:45
PROVIDERS: ATTEND Family Medicine
DX: R39.11 Hesitancy of micturition (principal); R82.998 Other abnormal findings in urine
CPT/HCPCS: 81000; 87088

== ENCOUNTER → 2019-02-16 | Outpatient (CLI) | payer MEDICARE ==
[2019-02-16 23:36] LABS: BILIRUBIN,URINE NEGATIVE (NEGATIVE); CLARITY,URINE CLEAR; COLOR,URINE YELLOW; GLUCOSE, URINE (UA) NEGATIVE (NEGATIVE); KETONES,URINE NEGATIVE (NEGATIVE); LEUKOCYTE ESTERASE ,URINE NEGATIVE (NEGATIVE); NITRITE,URINE NEGATIVE (NEGATIVE); PH,URINE 7 (5-9); PROTEIN,URINE NEGATIVE (NEGATIVE); UROBILINOGEN,URINE NORMAL (NORMAL)
[2019-02-16 23:42] LABS: BACTERIA,URINE TRACE /HPF
--- NOTE | 2019-02-23 12:12 | Physician Query-Final Dx ---
BELINDA HALL 02/23/19 1212: Final Diagnosis Give Final Diagnosis Please give Final Diagnosis Dr Tavarez Please give a diagnosis for UA test thank you TERRI TAVAREZ DO 02/24/19 0707: BELINDA HALL February 23, 2019 12:12 TERRI TAVAREZ DO February 24, 2019 07:07
== END ==
LOC: LABNPT 23:27
PROVIDERS: ATTEND Family Medicine
DX: R33.9 Retention of urine, unspecified (principal)
CPT/HCPCS: 81000

== ENCOUNTER 2019-02-26 05:44 | Emergency (ER) | payer MEDICARE ==
[~2019-02-26] VITALS: Ht 175.3 cm; Wt 63.7 kg
[2019-02-26 06:29] LABS: BASOPHILS % (AUTO) 1 % (0-10); EOSINOPHILS # (AUTO) 0.1 10^3/uL (0.0-0.3); EOSINOPHILS % (AUTO) 3 % (0-10); HEMATOCRIT 34 % (40-54); HEMOGLOBIN 11.2 G/DL (13.3-17.7); LYMPHOCYTES % (AUTO) 25 % (12-44); MEAN CORPUSCULAR HEMOGLOBIN 26 PG (25-34); MEAN CORPUSCULAR HGB CONC 33 G/DL (32-36); MEAN CORPUSCULAR VOLUME 79 FL (80-99); MEAN PLATELET VOLUME 9.9 FL (7.4-10.4); MONOCYTES # (AUTO) 0.4 X 10^3 (0.0-1.0); MONOCYTES % (AUTO) 10 % (0-12); NEUTROPHILS # (AUTO) 2.4 X 10^3 (1.8-7.8); NEUTROPHILS % (AUTO) 61 % (42-75); PLATELET COUNT 366 10^3/uL (130-400); RED CELL DISTRIBUTION WIDTH 14.9 % (10.0-14.5); WHITE BLOOD COUNT 3.9 10^3/uL (4.3-11.0)
[2019-02-26 06:39] LABS: BILIRUBIN,URINE NEGATIVE (NEGATIVE); CLARITY,URINE CLEAR; COLOR,URINE YELLOW; GLUCOSE, URINE (UA) NEGATIVE (NEGATIVE); KETONES,URINE NEGATIVE (NEGATIVE); LEUKOCYTE ESTERASE ,URINE NEGATIVE (NEGATIVE); NITRITE,URINE NEGATIVE (NEGATIVE); PH,URINE 7 (5-9); PROTEIN,URINE 2+ (NEGATIVE); UROBILINOGEN,URINE NORMAL (NORMAL)
[2019-02-26 06:46] LABS: BACTERIA,URINE TRACE /HPF; WBC,URINE RARE /HPF
[2019-02-26 07:08] LABS: ALANINE AMINOTRANSFERASE 21 U/L (0-55); ALBUMIN 3.7 GM/DL (3.2-4.5); ALKALINE PHOSPHATASE 80 U/L (40-136); BILIRUBIN,TOTAL 0.4 MG/DL (0.1-1.0); BUN/CREATININE RATIO 18; CALCIUM 10.3 MG/DL (8.5-10.1); CARBON DIOXIDE 23 MMOL/L (21-32); CHLORIDE 107 MMOL/L (98-107); CREATININE SERUM 0.96 MG/DL (0.60-1.30); GFR ESTIMATED > 60; GLUCOSE 86 MG/DL (70-105); MAGNESIUM 2.1 MG/DL (1.8-2.4); POTASSIUM 4.3 MMOL/L (3.6-5.0); SODIUM 142 MMOL/L (135-145); TOTAL PROTEIN 7.1 GM/DL (6.4-8.2)
--- NOTE | 2019-02-26 07:39 | ED General ---
General Chief Complaint: General Problems/Pain Stated Complaint: AMS Nursing Triage Note: PT ARRIVED BY EMS TO ROOM 7. PER PT FACILITY, PT "NOT ACTING RIGHT" AND HAD LOW BLOOD PRESSURE 105/52 AND ELEVATED PULSE OF 110. PT REPORTS GAGGING WHEN HE WOKE UP AND STATES "IT'S BEEN [place] EVER SINCE." PT C/O PAIN IN THE TAILBONE, CONSTIPATION, INCONTINENCE OF URINE, AND CHEST TIGHTNESS D/T PNUEMONIA IN "ONE LUNG." PT A/OX3. Nursing Sepsis Screen: No Definite Risk Source of Information: Patient, EMS, Family Exam Limitations: No Limitations History of Present Illness Date Seen by Provider: February 26, 2019 Time Seen by Provider: 05:57 Initial Comments Here by EMS with report of low blood pressure and high heart rate from the long term this morning. Patient states that he doesn't know what that was about but he does know what happened this morning. Apparently he had woke up and was trying to cough up some mucus that was also wrapped up in his bed clothes and sheets and that was freaking him. He states he is claustrophobic. He tried for a while to get unwrapped and became panicked and was screaming out for the nurse. When the nurse arrived, patient reports that she was freaked out because he was freaked out and it all escalated from there. Ultimately EMS was called because he had a blood pressure of 108 systolic and a heart rate of 110. EMS found a heart rate of about 100 with blood pressure 180 systolic. On arrival here his heart rate in the 90s with blood pressure in the 150s systolic and he is in no distress. He does admit that he's had incontinence of urine over the last 24 hours and that's not normal. He states that he has not had a bowel movement in 10 days. The arrives and reports that he hasn't had a bowel movement in 3 weeks or 2 weeks. Patient believes appointment 10 days. Does have history of constipation. Does have diabetes and is not sure what his blood sugar is. 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 Note swelling in the right leg that is worse than normal. Overall he states he feels better. He is at the [facility] for rehabilitation and the does not want him to go back there and wants us to see if he meets requirements for inpatient rehabilitation. Patient reports that he just completed treatment for pneumonia. Timing/Duration: 1/2 Hour Severity: Mild Associated Systoms: No Chest Pain, No Cough, No Fever/Chills, No Nausea/Vomit ing, No Shortness of Air Allergies and Home Medications Allergies Coded Allergies: Sulfa (Sulfonamide Antibiotics) (Verified Allergy, Severe, HIVES, 02/05/17) temazepam (Verified Allergy, Severe, 02/05/17) MENTAL CONFUSION pravastatin (Verified Adverse Reaction, Severe, RASH, 02/05/17) clopidogrel (Verified Adverse Reaction, Unknown, 02/05/17) Home Medications Amitriptyline HCl 25 Mg Tablet, 25 MG PO BID, (Reported) Aspirin 325 Mg Tablet, 325 MG PO DAILY, (Reported) Carvedilol 25 Mg Tablet, 37.5 MG PO BID, (Reported) TAKES 1 & 1/2 (25MG) TABLET Digoxin 250 Mcg Tablet, 250 MCG PO DAILY, (Reported) Exenatide Microspheres 2 Mg/0.65 Ml Pen.injctr, 2 MG SQ Th, (Reported) Finasteride 5 Mg Tablet, 5 MG PO HS, (Reported) Hydralazine HCl 10 Mg Tablet, 10 MG PO BID, (Reported) Hydrocodone/Acetaminophen 1 Each Tablet, 1 TAB PO Q6H PRN for PAIN-MODERATE, (Reported) Insulin Lispro 100 Unit/1 Ml Cartridge, SQ AC PRN for BLOOD SUGAR, (Reported) Isosorbide Mononitrate 30 Mg Tab.er.24h, 30 MG PO DAILY Prescribed by: REBECA HARDIN on 05/31/17 1212 Lisinopril 40 Mg Tablet, 40 MG PO DAILY, (Reported) Metformin HCl 1,000 Mg Tablet, 1,000 MG PO BID WITH MEALS, (Reported) Methyl-B12/l-Mefolate/B6 Phos 1 Each Tablet, 1 TAB PO TID, (Reported) Sennosides/Docusate Sodium 1 Each Tablet, 3 TAB PO HS, (Reported) Patient Home Medication List Home Medication List Reviewed: Yes Review of Systems Review of Systems Constitutional: see HPI; No chills, No fever EENTM: no symptoms reported Respiratory: see HPI, cough; No short of breath Cardiovascular: No chest pain; edema Gastrointestinal: No abdominal pain; constipation; No nausea, No vomiting Genitourinary: no symptoms reported Musculoskeletal: see HPI; No muscle pain Psychiatric/Neurological: Anxiety; Denies Headache All Other Systems Reviewed Negative Unless Noted: Yes Past Anavtzd-Nqffej-Whppkf Hx Past Med/Social Hx: Reviewed Nursing Past Med/Soc Hx Patient Social History Alcohol Use: Denies Use Recreational Drug Use: No (Hx in ) Type Used: Cigars Former Smoker, Quit: Oct 07, 1979 2nd Hand Smoke Exposure: No Recent Foreign Travel: No Contact w/Someone Who Travel: No Recent Infectious Disease Expo: No Recent Hopitalizations: No (Left AKA- [place]) Seasonal Allergies Seasonal Allergies: No Past Medical History Surgeries: Yes Amputation, Orthopedic, Prostatectomy, Vascular Surgery Respiratory: Yes Sleep Apnea Currently Using CPAP: No Currently Using BIPAP: No Cardiac: Yes Coronary Artery Disease, High Cholesterol, Hypertension, Peripheral Vascular Neurological: Yes Neuropathy Reproductive Disorders: No Sexually Transmitted Disease: No HIV/AIDS: No Genitourinary: Yes Benign Prostatic Hyperpl, Prostate Problems Gastrointestinal: No Musculoskeletal: Yes (Osteoarthritis) Chronic Back Pain Endocrine: Yes Diabetes, Insulin dep HEENT: Yes (Cataract- right eye) Cataract Loss of Vision: Denies Hearing Impairment: Denies Cancer: No Did You Recieve Any Treatments: No Psychosocial: Yes Anxiety, Depression Integumentary: Yes (GANGRENE AND INFECTION IN LEFT FOOT) Recent Skin Changes Blood Disorders: No Adverse Reaction/Blood Tranf: No Family Medical History Reviewed Nursing Family Hx Abdominal aortic aneurysm G8 SISTER Alcoholism G8 BROTHER G8 BROTHER G8 BROTHER Arthritis G8 BROTHER G8 BROTHER G8 BROTHER G8 BROTHER G8 BROTHER G8 SISTER G8 SISTER Cardiovascular disease G8 SISTER Diabetes mellitus G8 BROTHER G8 BROTHER G8 BROTHER G8 SISTER G8 SISTER Drug abuse G8 BROTHER G8 BROTHER FH: COPD (chronic obstructive pulmonary disease) 19 FATHER FH: bladder cancer 19 MOTHER FH: prostate cancer 19 FATHER Headache disorder G8 BROTHER G8 BROTHER G8 BROTHER G8 BROTHER G8 BROTHER G8 BROTHER G8 BROTHER G8 BROTHER G8 SISTER G8 SISTER G8 SISTER G8 SISTER Hypercholesterolemia G8 BROTHER G8 BROTHER G8 BROTHER G8 BROTHER G8 BROTHER G8 SISTER G8 SISTER G8 SISTER G8 SISTER Hypertension 19 FATHER G8 BROTHER G8 BROTHER G8 BROTHER G8 BROTHER G8 BROTHER G8 BROTHER G8 BROTHER G8 BROTHER G8 SISTER G8 SISTER G8 SISTER G8 SISTER Thyroid disease Tuberculosis 19 FATHER Physical Exam Vital Signs Vital Signs - First Documented 02/26/19 05:50 Temp 97.2 Pulse 95 Resp 20 B/P (MAP) 150/100 (117) Pulse Ox 100 O2 Delivery Room Air Capillary Refill : Less Than 3 Seconds Height, Weight, BMI Height: 5'9.00" Weight: 140lbs. 7.0oz. [id number]; 20.7 BMI Method:Stated General Appearance: No Apparent Distress, WD/WN HEENT: PERRL/EOMI, Pharynx Normal Neck: Non Tender, Supple Respiratory: Lungs Clear, Normal Breath Sounds Cardiovascular: Regular Rate, Rhythm, No Murmur Gastrointestinal: Non Tender, Soft Back: Normal Inspection, No CVA Tenderness, No Vertebral Tenderness Extremity: Normal Range of Motion, Non Tender, Pedal Edema (2+ to the level of the knee on the right. BKA on the left.) Neurologic/Psychiatric: Alert, Oriented x3 Skin: Normal Color, Warm/Dry Progress/Results/Core Measures Suspected Sepsis Recent Fever Within 48 Hours: No Infection Criteria Present: Suspected New Infection New/Unexplained Altered Menta: No Sepsis Screen: No Definite Risk SIRS Temperature:97.2 Pulse: 95 Respiratory Rate: 20 Laboratory Tests 02/26/19 06:21: White Blood Count 3.9L Blood Pressure 150 /100 Mean: 117 Laboratory Tests 02/26/19 06:21: Creatinine 0.96, Platelet Count 366, Total Bilirubin 0.4 Results/Orders Lab Results Laboratory Tests Test 02/26/19 05:59 02/26/19 06:21 02/26/19 06:30 Range/Units Glucometer 82 70-110 MG/DL White Blood Count 3.9 L 4.3-11.0 10^3/uL Red Blood Count 4.28 L 4.35-5.85 10^6/uL Hemoglobin 11.2 L 13.3-17.7 G/DL Hematocrit 34 L 40-54 % Mean Corpuscular Volume 79 L 80-99 FL Mean Corpuscular Hemoglobin 26 25-34 PG Mean Corpuscular Hemoglobin Concent 33 32-36 G/DL Red Cell Distribution Width 14.9 H 10.0-14.5 % Platelet Count 366 130-400 10^3/uL Mean Platelet Volume 9.9 7.4-10.4 FL Neutrophils (%) (Auto) 61 42-75 % Lymphocytes (%) (Auto) 25 12-44 % Monocytes (%) (Auto) 10 0-12 % Eosinophils (%) (Auto) 3 0-10 % Basophils (%) (Auto) 1 0-10 % Neutrophils # (Auto) 2.4 1.8-7.8 X 10^3 Lymphocytes # (Auto) 1.0 1.0-4.0 X 10^3 Monocytes # (Auto) 0.4 0.0-1.0 X 10^3 Eosinophils # (Auto) 0.1 0.0-0.3 10^3/uL Basophils # (Auto) 0.0 0.0-0.1 10^3/uL Sodium Level 142 135-145 MMOL/L Potassium Level 4.3 3.6-5.0 MMOL/L Chloride Level 107 98-107 MMOL/L Carbon Dioxide Level 23 21-32 MMOL/L Anion Gap 12 5-14 MMOL/L Blood Urea Nitrogen 17 7-18 MG/DL Creatinine 0.96 0.60-1.30 MG/DL Estimat Glomerular Filtration Rate > 60 BUN/Creatinine Ratio 18 Glucose Level 86 70-105 MG/DL Calcium Level 10.3 H 8.5-10.1 MG/DL Corrected Calcium 10.5 H 8.5-10.1 MG/DL Magnesium Level 2.1 1.8-2.4 MG/DL Total Bilirubin 0.4 0.1-1.0 MG/DL Aspartate Amino Transf (AST/SGOT) 16 5-34 U/L Alanine Aminotransferase (ALT/SGPT) 21 0-55 U/L Alkaline Phosphatase 80 40-136 U/L C-Reactive Protein High Sensitivity 0.07 0.00-0.50 MG/DL B-Type Natriuretic Peptide 14.2 <100.0 PG/ML Total Protein 7.1 6.4-8.2 GM/DL Albumin 3.7 3.2-4.5 GM/DL Digoxin Level 0.64 L 0.80-2.00 NG/ML Urine Color YELLOW Urine Clarity CLEAR Urine pH 7 5-9 Urine Specific [place]tt 1.010 L 1.016-1.022 Urine Protein 2+ H NEGATIVE Urine Glucose (UA) NEGATIVE NEGATIVE Urine Ketones NEGATIVE NEGATIVE Urine Nitrite NEGATIVE NEGATIVE Urine Bilirubin NEGATIVE NEGATIVE Urine Urobilinogen NORMAL NORMAL MG/DL Urine Leukocyte Esterase NEGATIVE NEGATIVE Urine RBC (Auto) NEGATIVE NEGATIVE Urine RBC NONE /HPF Urine WBC RARE /HPF Urine Squamous Epithelial Cells 2-5 /HPF Urine Crystals NONE /LPF Urine Bacteria TRACE /HPF Urine Casts NONE /LPF Urine Mucus NEGATIVE /LPF Urine Culture Indicated NO My Orders Orders - NATALEE LEIGH MD Cbc With Automated Diff (02/26/19 06:19) Comprehensive Metabolic Panel (02/26/19 06:19) Hs C Reactive Protein (02/26/19 06:19) Ua Culture If Indicated (02/26/19 06:19) Acute Abd Series (02/26/19 06:19) Ed Iv/Invasive Line Start (02/26/19 06:19) BNP (02/26/19 06:19) Digoxin (02/26/19 06:19) Magnesium (02/26/19 06:19) Vital Signs/I&O 02/26/19 05:50 Temp 97.2 Pulse 95 Resp 20 B/P (MAP) 150/100 (117) Pulse Ox 100 O2 Delivery Room Air Capillary Refill : Less Than 3 Seconds Blood Pressure Mean: 117 Progress Note : Progress Note Seen and evaluated. IV, labs, UA and acute abdominal series ordered. Monitor patient. 0910: Overall doing better. No acute findings other than constipation. I did discuss the case with Dr. Larose and he will increase his bowel regimen at the long term. [facility] notified for transport back. I did discuss all this with the patient and family who agree. Discharged home with return precautions. Patient and family verbalize understanding instructions and agreement with plan. Diagnostic Imaging Diagonstic Imaging: Xray Plain Films/CT/US/NM/MRI: chest, abdomen Comments [facility]. [place], [place] NAME: BARAKARLIN [facility] REC#: [id number] PT STATUS: REG ER : 1945 PHYSICIAN: NATALEE LEIGH MD ADMIT DATE: 02/26/19/ER Draft Date of Exam:02/26/19 ACUTE ABD SERIES Indication: Inability to swallow. Abdominal pain. Comparison: Chest radiograph of 05/30/2017. Findings: No free intraperitoneal air. Bibasilar subsegmental atelectasis present. Normal cardiomediastinal silhouette. No pleural effusion or pneumothorax. Nonobstructive bowel gas pattern. A large volume of colonic stool is present. Mild degenerative changes in the lower lumbar spine and hips. Impression: 1. Nonobstructive bowel gas pattern and no free intraperitoneal air. 2. Large volume of colonic stool could relate to constipation. Dictated on workstation # [id number] Dict: 02/26/19 0736 Trans: 02/26/19 0738 [facility] [id number] Interpreted by: BARBARA FLYNN MD Electronically signed by: Departure Impression Primary Impression: Constipation Qualified Codes: K59.00 - Constipation, unspecified Additional Impression: Claustrophobia Disposition: 01 HOME, SELF-CARE Condition: Improved Departure-Patient Inst. Decision time for Depature: 09:11 Referrals: BEAU CHANG DO (PCP) Primary Care Physician Patient Instructions: Constipation, Adult (DC) Add. Discharge Instructions: All discharge instructions reviewed with patient and/or family. Voiced understanding. Dr. Oquendo was notified and he will call long term for orders to help you with your constipation. It is very important that you aren't taking something for your constipation as this will worsen if not solved soon. Follow-up with Dr. Larose within one week for recheck and further evaluation. Return for worse pain, vomiting, weakness, breathing problems or other concerns as needed. Continue home medicines as previously prescribed. NATALEE LEIGH MD February 26, 2019 07:39
--- NOTE | 2019-02-26 09:07 | NUR ---
[facility]IA [facility] NOTIFIED OF DISCHARGE AND ARRANGING TRANSPORT. BENSON (NURSE) NOTIFIED OF UPDATE ON PATIENT.
[2019-02-26 09:28] VITALS: BP 150/100
== END 2019-02-26 09:28 | disposition home or self-care (01) ==
LOC: EDUNIT# 05:44 → ER 05:45
DX: K59.00 Constipation, unspecified (principal); F40.240 Claustrophobia; G47.30 Sleep apnea, unspecified; I25.10 Atherosclerotic heart disease of native coronary artery without angina pectoris; E78.00 Pure hypercholesterolemia, unspecified; E11.40 Type 2 diabetes mellitus with diabetic neuropathy, unspecified; F41.9 Anxiety disorder, unspecified; F32.9 Major depressive disorder, single episode, unspecified; I10 Essential (primary) hypertension; E11.51 Type 2 diabetes mellitus with diabetic peripheral angiopathy without gangrene; I73.9 Peripheral vascular disease, unspecified; Z87.01 Personal history of pneumonia (recurrent); Z88.2 Allergy status to sulfonamides; Z82.49 Family history of ischemic heart disease and other diseases of the circulatory system; Z80.52 Family history of malignant neoplasm of bladder; Z80.42 Family history of malignant neoplasm of prostate; Z88.8 Allergy status to other drugs, medicaments and biological substances; Z79.82 Long term (current) use of aspirin; Z79.4 Long term (current) use of insulin; Z87.891 Personal history of nicotine dependence; Z98.890 Other specified postprocedural states; Z90.79 Acquired absence of other genital organ(s)
CPT/HCPCS: 36415; 74022; 80053; 80162; 81000; 82962; 83735; 83880; 85025; 86141

== ENCOUNTER 2019-03-21 23:42 | Inpatient (IN) | payer MEDICARE | END 2019-03-26 19:07 | LOC: 4TH 03-22 01:10 → ER 23:42 ==

== ENCOUNTER → 2019-04-21 | Outpatient (CLI) | payer MEDICARE ==
[~2019-04-21] MED LIST changes: +AMLO2.5T4 PO; +AMLO5TAB9 PO; +ATOR10TA PO; +BACL10TA PO; +DIGO250T15 PO; +GABA-488 PO; +GABA300C PO; +HYDR-4227 PO; +HYDR100T27 PO; +INSU100V SQ; +INSU300I SQ; +ISM60TCR PO; +ISOS120T9 PO; +MAGN296S50 PO; +MAGN400O7 PO; +MENT71OI TOP; +POLY17PO6 PO; +TERA1CAP3 PO; +TERA2CAP4 PO; +TEST1.252 TD; +TEST75GE12 TD; +TRAZ-222 PO
--- NOTE | 2019-04-21 15:00 | Diagnostic Imaging Report ---
INDICATION: Spinal stenosis. TIME OF EXAM: 2:16 p.m. FINDINGS: Multiple views of the cervical spine demonstrate postop changes of ACDF with anterior plate and screws transfixing the C3-C4 level. Hardware appears intact. Alignment is normal. Prevertebral tissues are within normal limits. There is degenerative disc disease at the C4-C5 and C5-C6 levels. IMPRESSION: C3-C4 ACDF. No complicating features are seen. Dictated by: Dictated on workstation # [id number]
== END ==
LOC: RAD 13:34
PROVIDERS: ATTEND Nurse Practitioner
DX: M48.02 Spinal stenosis, cervical region (principal); Z98.1 Arthrodesis status
CPT/HCPCS: 72040

== ENCOUNTER 2019-07-10 23:25 | Inpatient (IN) | payer MEDICARE ==
[~2019-07-10] VITALS: Ht 175.3 cm; Wt 79.0 kg
[2019-07-10] MEDS ORDERED: NS IV 1000 ML 1,000 ML IV ONE (23:34)
[2019-07-10 23:55] LABS: BASOPHILS % (AUTO) 1 % (0-10); EOSINOPHILS # (AUTO) 0.3 10^3/uL (0.0-0.3); EOSINOPHILS % (AUTO) 6 % (0-10); HEMATOCRIT 33 % (40-54); HEMOGLOBIN 10.6 G/DL (13.3-17.7); LYMPHOCYTES # (AUTO) 1.3 X 10^3 (1.0-4.0); LYMPHOCYTES % (AUTO) 25 % (12-44); MEAN CORPUSCULAR HEMOGLOBIN 27 PG (25-34); MEAN CORPUSCULAR HGB CONC 32 G/DL (32-36); MEAN CORPUSCULAR VOLUME 84 FL (80-99); MEAN PLATELET VOLUME 10.2 FL (7.4-10.4); MONOCYTES # (AUTO) 0.8 X 10^3 (0.0-1.0); MONOCYTES % (AUTO) 15 % (0-12); NEUTROPHILS # (AUTO) 2.7 X 10^3 (1.8-7.8); NEUTROPHILS % (AUTO) 53 % (42-75); PLATELET COUNT 237 10^3/uL (130-400); RED CELL DISTRIBUTION WIDTH 14.2 % (10.0-14.5); WHITE BLOOD COUNT 5.1 10^3/uL (4.3-11.0)
[2019-07-11] VITALS (17 sets, daily range): BP systolic 125–191; BP diastolic 57–103
[2019-07-11 00:06] LABS: PROTHROMBIN TIME PATIENT 13.8 SEC (12.2-14.7)
[2019-07-11 00:17] LABS: ALANINE AMINOTRANSFERASE 36 U/L (0-55); ALKALINE PHOSPHATASE 73 U/L (40-136); AMYLASE 62 U/L (25-125); BILIRUBIN,TOTAL 0.3 MG/DL (0.1-1.0); BUN/CREATININE RATIO 24; CALCIUM 9.8 MG/DL (8.5-10.1); CARBON DIOXIDE 26 MMOL/L (21-32); CHLORIDE 105 MMOL/L (98-107); CREATINE KINASE 137 U/L (30-200); CREATININE SERUM 1.14 MG/DL (0.60-1.30); GFR ESTIMATED > 60; GLUCOSE 89 MG/DL (70-105); LIPASE 38 U/L (8-78); MAGNESIUM 3.4 MG/DL (1.6-2.4); POTASSIUM 4.3 MMOL/L (3.6-5.0); SODIUM 139 MMOL/L (135-145); TOTAL PROTEIN 7.2 GM/DL (6.4-8.2)
[2019-07-11 00:29] LABS: CREATINE KINASE MB 2.6 NG/ML (<6.6)
[2019-07-11] MEDS ORDERED: NS IV 1000 ML 1,000 ML IV SCH (00:37)
[2019-07-11] MEDS ORDERED: fentaNYL INJECTION 100 MCG/2 ML AMP IVP ONE ×2 (00:45→01:45)
[2019-07-11] MEDS ORDERED: ONDANSETRON 4 MG/2 ML (SDV) Z0FRAN IVP ONE (00:45)
[2019-07-11] MEDS ORDERED: diphenhydrAMINE 50 MG/ML INJ (BENADRYL) IVP ONE (01:45)
[2019-07-11] MEDS ORDERED: HOLD METFORMIN - RECEIVED CONTRAST 20 ML VIAL IV SCH (02:00)
[2019-07-11] MEDS ORDERED: NS 100 ML (IVPB) BAG IV ONE (02:00)
[2019-07-11] MEDS ORDERED: IOHEXOL 350 MG/ML 100 ML (OMNIPAQUE 350) VIAL IV ONE (02:00)
[2019-07-11 03:05] LABS: BILIRUBIN,URINE NEGATIVE (NEGATIVE); CLARITY,URINE CLEAR; COLOR,URINE YELLOW; GLUCOSE, URINE (UA) NEGATIVE (NEGATIVE); KETONES,URINE NEGATIVE (NEGATIVE); LEUKOCYTE ESTERASE ,URINE NEGATIVE (NEGATIVE); NITRITE,URINE NEGATIVE (NEGATIVE); PH,URINE 8 (5-9); PROTEIN,URINE 1+ (NEGATIVE); RBC,URINE RARE /HPF; UROBILINOGEN,URINE NORMAL (NORMAL)
[2019-07-11 03:06] LABS: BACTERIA,URINE NEGATIVE /HPF
[2019-07-11] MEDS ORDERED: HEParin DRIP 25000 UNIT/500ML 500 ML IV ONE (04:20)
[2019-07-11] MEDS ORDERED: HEParin 1000 UNIT/ML (10ML VIAL) FOR BOLUS IV ONE (04:20)
[2019-07-11] MEDS ORDERED: ASPIRIN 81 MG CHEW (CHILDREN'S ASA) PO ONE (04:30)
--- NOTE | 2019-07-11 05:10 | ED General ---
General Chief Complaint: Abdominal/GI Problems Stated Complaint: ABD PAIN,FALL Nursing Triage Note: PT BROUGHT IN BY [facility] FROM [facility] WITH COMPLAINT OF ABD PAIN. PER NH, PTS ABD BECAME TENDER AND RIGID AROUND 2229 Nursing Sepsis Screen: No Definite Risk Source of Information: Patient, Old Records History of Present Illness Date Seen by Provider: Jul 10, 2019 Time Seen by Provider: 23:30 Initial Comments PT ARRIVES VIA EMS FROM [facility] C/O VAGUE GENERALIZED ABDOMINAL PAIN, MORE IN EPIGASTRIC AREA--SYMPTOMS BEGAN AROUND 0 C/O SHORTNESS OF BREATH, ESPECIALLY WITH THE PAIN NO NAUSEA/VOMITING HAD BM TODAY--"LOOSE", WHICH IS NORMAL FOR HIM HE TAKES MEDICATION FOR CHRONIC CONSTIPATION ATE SUPPER, BUT NOT VERY MUCH --STATES HE DID NOT HAVE ANY APPETITE. DENIES ACTUAL PAIN IN CHEST NO SWEATS NO SYNCOPE NO PALPITATIONS NO FEVER, COUGH OR RECENT ILLNESS OR URI SYMPTOMS PT IS DIABETIC, STATES HIS BLOOD GLUCOSE WAS 107 PRIOR TO ARRIVAL PCP: DR. TAVAREZ Allergies and Home Medications Allergies Coded Allergies: Sulfa (Sulfonamide Antibiotics) (Verified Allergy, Severe, HIVES, 02/05/17) temazepam (Verified Allergy, Severe, 02/05/17) MENTAL CONFUSION hydromorphone (Verified Allergy, Unknown, 07/10/19) pravastatin (Verified Adverse Reaction, Severe, RASH, 02/05/17) clopidogrel (Verified Adverse Reaction, Unknown, 02/05/17) Home Medications Amlodipine Besylate 2.5 Mg Tablet, 2.5 MG PO BID Prescribed by: ALYX SIN on 03/26/19 1633 Aspirin 325 Mg Tablet, 325 MG PO DAILY, (Reported) Atorvastatin Calcium 10 Mg Tablet, 10 MG PO HS, (Reported) Baclofen 10 Mg Tablet, 10 MG PO Q8H PRN for MUSCLE SPASMS, (Reported) Carvedilol 6.25 Mg Tablet, 6.25 MG PO BID Prescribed by: ALYX SIN on 03/26/19 1633 Docusate Sodium 100 Mg Capsule, 300 MG PO HS, (Reported) TAKES 3 (100MG) CAPSULES Exenatide Microspheres 2 Mg/0.65 Ml Pen.injctr, 2 MG SQ Th, (Reported) Finasteride 5 Mg Tablet, 5 MG PO HS, (Reported) Gabapentin 300 Mg Capsule, 300 MG PO BID, (Reported) Glipizide 10 Mg Tablet, 20 MG PO BID, (Reported) TAKES 2 (10MG) TABLETS Hydrocodone/Acetaminophen 1 Each Tablet, 1-2 TAB PO Q6H PRN for PAIN-MILD, (Reported) Insulin Glargine,Hum.rec.anlog 300 Unit/1 Ml Insuln.pen, 6 UNIT SQ DAILY, (Reported) Insulin Lispro 100 Unit/1 Ml Vial, SQ TIDAC, (Reported) 151-199 give 0 units 200-249 give 2 units 250-299 give 3 units 300-349 give 4 units 350-399 give 5 units 400 and above - contact PCP Isosorbide Mononitrate 60 Mg Tab, 60 MG PO DAILY@0630 Prescribed by: ALYX SIN on 03/26/19 1633 Magnesium Citrate 296 Ml Solution, 296 ML PO EVERY 4 DAYS PRN for CONSTIPATION- 9TH LINE, (Reported) 1 BOTTLE EVERY 4 DAYS, IF NO BOWEL MOVEMENT, NEEDED FOR CONSTIPATION Magnesium Hydroxide 400 Mg/5 Ml Oral.susp, 30 ML PO DAILY PRN for CONSTIPATION- 7TH LINE, (Reported) Menthol/Lanolin/Calamine/Znox 71 Gm Oint, TOP BID, (Reported) APPLY TO COCCYX Polyethylene Glycol 3350 17 Gm Powd.pack, 17 GM PO DAILY, (Reported) Terazosin HCl 1 Mg Capsule, 1 MG PO BID Prescribed by: ALYX SIN on 03/26/19 163 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, 2 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 TD 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, (Reported) Trazodone HCl 50 Mg Tablet, 50 MG PO HS, (Reported) Patient Home Medication List Home Medication List Reviewed: Yes Review of Systems Review of Systems Constitutional: No diaphoresis, No fever Respiratory: see HPI, short of breath Cardiovascular: No chest pain, No edema, No palpitations, No syncope Gastrointestinal: see HPI, abdominal pain; No constipation, No diarrhea; loss of appetite; No nausea, No vomiting Genitourinary: no symptoms reported Musculoskeletal: No back pain Skin: no symptoms reported Psychiatric/Neurological: No Symptoms Reported Hematologic/Lymphatic: No Symptoms Reported Immunological/Allergic: no symptoms reported Past Ekqsnri-Biqqit-Bhhinp Hx Patient Social History Alcohol Use: Denies Use Recreational Drug Use: Yes (HX OF ABUSE "IN " ) Smoking Status: Former Smoker Type Used: Cigars Former Smoker, Quit: Oct 07, 1979 2nd Hand Smoke Exposure: No Recent Foreign Travel: No Contact w/Someone Who Travel: No Recent Infectious Disease Expo: No Recent Hopitalizations: No (Left AKA- [place]) Physical Abuse: No Sexual Abuse: No Mistreated: No Fear: No Seasonal Allergies Seasonal Allergies: No Past Medical History Surgeries: Yes (LEFT AKA; CARDIAC CATHS--NO INTERVENTION--LAST ONE 12/2016; MULTIPLE VASCULAR PROCEDURES ON LEFT LEG, PRIOR TO AMPTUATION OF LEFT GREAT TOE AND THEN LEFT AKA; HAS A STENT IN RIGHT WELL. C-SPINE SURGERY AT [facility] 12/2018--DR. MILLIGAN.) Amputation, Cardiac, Orthopedic, Prostatectomy, Vascular Surgery Respiratory: Yes Sleep Apnea Currently Using CPAP: No Currently Using BIPAP: No Cardiac: Yes (CARDIAC CATHS--NO INTERVENTION; AT LEAST ONE AT [facility] AND ONE HERE 05/2017--MODERATE TO SEVERE SMALL VESSEL DISEASE, NOT AMENABLE TO INTERVENTION; PT HAS SEVERE PERIPHERAL VASCULAR DISEASE. HAS HAD MULTIPLE PROCEDURES TO LEFT LEG-FAILED AND HAD TOE AMPTUATION AND LATER LEFT AKA; HAS HAD ONE STENT IN RIGHT LEG. CHRONIC RIGHT LEG EDEMA) Chronic Edema/Swelling, Coronary Artery Disease, High Cholesterol, Hypertension, Peripheral Vascular Neurological: Yes Neuropathy Reproductive Disorders: No Sexually Transmitted Disease: No HIV/AIDS: No Genitourinary: Yes Benign Prostatic Hyperpl, Prostate Problems Gastrointestinal: Yes Chronic Constipation Musculoskeletal: Yes (LEFT GREAT TOE AMPUTATION, FOLLOWED BY LEFT AKA FOR GANGRENE/SEVERE PERIPHERAL VASCULAR DISEASE/ CELLULITIS; C-SPINE SURGERY 12/2018 FOR CHRONIC NECK PAIN ; GENERALIZED WEAKNESS; ) Amputee, Arthritis, Chronic Back Pain Endocrine: Yes Diabetes, Insulin dep HEENT: Yes (Cataract- right eye; POOR DENTITION) Cataract Loss of Vision: Denies Hearing Impairment: Denies Cancer: No Did You Recieve Any Treatments: No Psychosocial: Yes Sleep Difficulties, Anxiety, Depression Integumentary: Yes (GANGRENE AND INFECTION IN LEFT FOOT; CHRONIC WOUNDS TO RIGHT LEG AND FOOT. ) Blood Disorders: No Adverse Reaction/Blood Tranf: No Family Medical History Abdominal aortic aneurysm G8 SISTER Alcoholism G8 BROTHER G8 BROTHER G8 BROTHER Arthritis G8 BROTHER G8 BROTHER G8 BROTHER G8 BROTHER G8 BROTHER G8 SISTER G8 SISTER Cardiovascular disease G8 SISTER Diabetes mellitus G8 BROTHER G8 BROTHER G8 BROTHER G8 SISTER G8 SISTER Drug abuse G8 BROTHER G8 BROTHER FH: COPD (chronic obstructive pulmonary disease) 19 FATHER FH: bladder cancer 19 MOTHER FH: prostate cancer 19 FATHER Headache disorder G8 BROTHER G8 BROTHER G8 BROTHER G8 BROTHER G8 BROTHER G8 BROTHER G8 BROTHER G8 BROTHER G8 SISTER G8 SISTER G8 SISTER G8 SISTER Hypercholesterolemia G8 BROTHER G8 BROTHER G8 BROTHER G8 BROTHER G8 BROTHER G8 SISTER G8 SISTER G8 SISTER G8 SISTER Hypertension 19 FATHER G8 BROTHER G8 BROTHER G8 BROTHER G8 BROTHER G8 BROTHER G8 BROTHER G8 BROTHER G8 BROTHER G8 SISTER G8 SISTER G8 SISTER G8 SISTER Thyroid disease Tuberculosis 19 FATHER Physical Exam Vital Signs Vital Signs - First Documented 07/10/19 23:28 Temp 36.7 Pulse 77 Resp 19 B/P (MAP) 137/96 (110) Pulse Ox 96 O2 Delivery Room Air Capillary Refill : Less Than 3 Seconds Height, Weight, BMI Height: 5'9.00" Weight: 139lbs. 0.0oz. 63.713605fx; 21.00 BMI Method:Stated General Appearance: No Apparent Distress, WD/WN, Other (LAYING ON LEFT SIDE IN POSITION; WANTING SOMETHING TO DRINK SOON HE ARRIVES. ) HEENT: Other (POOR DENTITON) Neck: Full Range of Motion, Normal Inspection, Non Tender, Supple; No Carotid Bruit, No JVD Respiratory: Chest Non Tender, Normal Breath Sounds, No Accessory Muscle Use, No Respiratory Distress Cardiovascular: Regular Rate, Rhythm, Systolic Murmur (? FAINT ? ) Gastrointestinal: Normal Bowel Sounds, No Organomegaly, No Pulsatile Mass, Non Tender, Soft, Other (APPEARS TO HAVE A LARGE VENTRAL HERNIA OR DIASTASIS RECTUS. NON-TENDER. SOFT. ) Back: No CVA Tenderness Extremity: Normal Capillary Refill, Other (LEFT AKA; RIGHT LEG WITH 3+ EDEMA. PT WEARING A POST OP SHOE. HAS CHRONIC VENOUS STASIS CHANGES, AND SCARRING FROM PREVIOUS CHRONIC WOUNDS. NO OPEN WOUNDS OR SIGNS OF INFECTION. FOOT IS WARM AND PINK WITH GOOD CAPILLARY REFILL. DIFFICULT TO PALPATE PULSES DUE TO EDEMA. 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 ) Skin: Normal Color (PT IS BLACK), Warm/Dry Progress/Results/Core Measures Suspected Sepsis Recent Fever Within 48 Hours: No Infection Criteria Present: None New/Unexplained Altered Menta: No Sepsis Screen: No Definite Risk SIRS Temperature: Pulse: 77 Respiratory Rate: 19 Laboratory Tests 07/10/19 23:44: White Blood Count 5.1 Blood Pressure 137 /96 Mean: 110 Laboratory Tests 07/10/19 23:44: Creatinine 1.14, INR Comment 1.0, Platelet Count 237, Total Bilirubin 0.3 Results/Orders Lab Results Laboratory Tests Test 07/10/19 23:44 07/11/19 01:00 07/11/19 03:45 Range/Units White Blood Count 5.1 4.3-11.0 10^3/uL Red Blood Count 3.93 L 4.35-5.85 10^6/uL Hemoglobin 10.6 L 13.3-17.7 G/DL Hematocrit 33 L 40-54 % Mean Corpuscular Volume 84 80-99 FL Mean Corpuscular Hemoglobin 27 25-34 PG Mean Corpuscular Hemoglobin Concent 32 32-36 G/DL Red Cell Distribution Width 14.2 10.0-14.5 % Platelet Count 237 130-400 10^3/uL Mean Platelet Volume 10.2 7.4-10.4 FL Neutrophils (%) (Auto) 53 42-75 % Lymphocytes (%) (Auto) 25 12-44 % Monocytes (%) (Auto) 15 H 0-12 % Eosinophils (%) (Auto) 6 0-10 % Basophils (%) (Auto) 1 0-10 % Neutrophils # (Auto) 2.7 1.8-7.8 X 10^3 Lymphocytes # (Auto) 1.3 1.0-4.0 X 10^3 Monocytes # (Auto) 0.8 0.0-1.0 X 10^3 Eosinophils # (Auto) 0.3 0.0-0.3 10^3/uL Basophils # (Auto) 0.0 0.0-0.1 10^3/uL Prothrombin Time 13.8 12.2-14.7 SEC INR Comment 1.0 0.8-1.4 Activated Partial Thromboplast Time 33 24-35 SEC Sodium Level 139 135-145 MMOL/L Potassium Level 4.3 3.6-5.0 MMOL/L Chloride Level 105 98-107 MMOL/L Carbon Dioxide Level 26 21-32 MMOL/L Anion Gap 8 5-14 MMOL/L Blood Urea Nitrogen 27 H 7-18 MG/DL Creatinine 1.14 0.60-1.30 MG/DL Estimat Glomerular Filtration Rate > 60 BUN/Creatinine Ratio 24 Glucose Level 89 70-105 MG/DL Calcium Level 9.8 8.5-10.1 MG/DL Corrected Calcium 9.8 8.5-10.1 MG/DL Magnesium Level 3.4 H 1.6-2.4 MG/DL Total Bilirubin 0.3 0.1-1.0 MG/DL Aspartate Amino Transf (AST/SGOT) 21 5-34 U/L Alanine Aminotransferase (ALT/SGPT) 36 0-55 U/L Alkaline Phosphatase 73 40-136 U/L Total Creatine Kinase 137 30-200 U/L Creatine Kinase MB 2.6 <6.6 NG/ML Myoglobin 112.3 H 10.0-92.0 NG/ML Troponin I 0.052 H 0.058 H <0.028 NG/ML B-Type Natriuretic Peptide 98.0 <100.0 PG/ML Total Protein 7.2 6.4-8.2 GM/DL Albumin 4.0 3.2-4.5 GM/DL Amylase Level 62 25-125 U/L Lipase 38 8-78 U/L Urine Color YELLOW Urine Clarity CLEAR Urine pH 8 5-9 Urine Specific [place] 1.010 L 1.016-1.022 Urine Protein 1+ H NEGATIVE Urine Glucose (UA) NEGATIVE NEGATIVE Urine Ketones NEGATIVE NEGATIVE Urine Nitrite NEGATIVE NEGATIVE Urine Bilirubin NEGATIVE NEGATIVE Urine Urobilinogen NORMAL NORMAL MG/DL Urine Leukocyte Esterase NEGATIVE NEGATIVE Urine RBC (Auto) NEGATIVE NEGATIVE Urine RBC RARE /HPF Urine WBC NONE /HPF Urine Squamous Epithelial Cells NONE /HPF Urine Crystals NONE /LPF Urine Bacteria NEGATIVE /HPF Urine Casts NONE /LPF Urine Mucus SMALL H /LPF Urine Culture Indicated NO My Orders Orders - EDDY MIRELES DO Ed Iv/Invasive Line Start (07/10/19 23:34) Ekg Tracing (07/10/19 23:34) Monitor-Rhythm Ecg Trace Only (07/10/19 23:34) Amylase (07/10/19 23:34) BNP (07/10/19:34) Cbc With Automated Diff (07/10/19:34) Comprehensive Metabolic Panel (07/10/19:34) Creatine Kinase (07/10/19 23:34) Creatine Kinase Mb (07/10/19 23:34) Lipase (07/10/19:34) Magnesium (07/10/19:34) Protime With Inr (07/10/19:34) Partial Thromboplastin Time (07/10/19:34) Ua Culture If Indicated (07/10/19:34) Myoglobin Serum (07/10/19:34) Troponin I (07/10/19:34) Ed Iv/Invasive Line Start (07/10/19 23:34) Ns Iv 1000 Ml (Sodium Chloride 0.9%) (07/10/19 23:34) Chest 1 View, Ap/Pa Only (07/11/19 00:01) Ct Lissette Chest/Noang Abd-Pelv W (07/11/19 00:37) Fentanyl Injection (Sublimaze Injection (07/11/19 00:45) Ondansetron Injection (Zofran Injectio (07/11/19 00:45) Ed Iv/Invasive Line Start (07/11/19 00:37) Ns Iv 1000 Ml (Sodium Chloride 0.9%) (07/11/19 00:37) Catheter(Urinary) Insert & Ass 03,15 (07/11/19 01:20) Diphenhydramine Injection (Benadryl Inje (07/11/19 01:45) Fentanyl Injection (Sublimaze Injection (07/11/19 01:45) Iohexol Injection (Omnipaque 350 Mg/Ml 1 (07/11/19 02:00) Received Contrast (Hold Metformin- Contr (07/11/19 02:00) Ns (Ivpb) (Sodium Chloride 0.9% Ivpb Bag (07/11/19 02:00) Ekg Tracing (07/11/19 03:26) Troponin I (07/11/19 03:26) Heparin Drip 59013 Unit/500ml (Heparin (07/11/19 04:20) Heparin (Bolus Per Protocol) (Heparin (B (07/11/19 04:20) Aspirin Chewable Tablet (Baby Aspirin Ch (07/11/19 04:30) Medications Given in ED Current Medications Medications Dose Ordered Sig/Rosa Route Start Time Stop Time Status Last Admin Dose Admin Diphenhydramine HCl 25 mg ONCE ONCE IVP 07/11/19 01:45 07/11/19 01:46 DC 07/11/19 01:53 25 MG Fentanyl Citrate 50 mcg ONCE ONCE IVP 07/11/19 00:45 07/11/19 00:46 DC 07/11/19 00:46 50 MCG Fentanyl Citrate 50 mcg ONCE ONCE IVP 07/11/19 01:45 07/11/19 01:46 DC 07/11/19 01:53 50 MCG Heparin Sodium (Porcine) HEPARIN BOLUS ACS PROTOC... 0420 ONCE IV 07/11/19 04:20 07/11/19 04:21 DC 07/11/19 04:30 4,000 UNIT Heparin Sodium/ Dextrose 500 ml @ 0 mls/hr Q0M ONCE IV 07/11/19 04:20 07/11/19 04:21 DC 07/11/19 04:34 16.3 MLS/HR Iohexol 63 ml ONCE ONCE IV 07/11/19 02:00 07/11/19 05:12 DC 07/11/19 01:50 63 ML Ondansetron HCl 4 mg ONCE ONCE IVP 07/11/19 00:45 07/11/19 00:46 DC 07/11/19 00:46 4 MG Sodium Chloride 69 ml ONCE ONCE IV 07/11/19 02:00 07/11/19 05:12 DC 07/11/19 01:50 69 ML Sodium Chloride 1,000 ml @ 0 mls/hr Q0M ONCE IV 07/10/19 23:34 07/10/19 23:37 DC 07/10/19 23:54 1,000 MLS/HR Vital Signs/I&O 07/10/19 23:28 Temp 36.7 Pulse 77 Resp 19 B/P (MAP) 137/96 (110) Pulse Ox 96 O2 Delivery Room Air Capillary Refill : Less Than 3 Seconds Blood Pressure Mean: 110 Progress Note : Progress Note PT RESTING QUIETLY FOR ENTIRE ER STAY NO COMPLAINTS OF ANY KIND 0143--WHILE IN CT ROOM, PT NOW REFUSES CT "UNLESS HE IS MEDICATED DUE TO CLAUSTROPHOBIA" --GIVEN BENADRYL AND FENTANYL AND EXAM WAS COMPLETED WITHOUT PROBLEMS ECG Initial ECG Impression Date: Jul 11, 2019 Initial ECG Impression Time: 00:05 Initial ECG Rate: 74 Initial ECG Rhythm: Normal Sinus Initial ECG Impression: Nonspecific Changes (ST DEPRESSION AND T WAVE INVERSION TO ANTERIOR/LATERAL LEADS) EKG : EKG Time: 04:09 Rate: 91 Rhythm: Normal Sinus (ST DEPRESSION/ T WAVE INVERSION ANTERIOR/LATERAL LEADS ) ECG Comparisson: Unchanged Diagnostic Imaging Comments CXR--POOR STUDY, ? BIBASILAR ATELECTASIS/INFILTRATES?--PENDING RADIOLOGIST REVIEW CT CHEST ANGIOGRAM/ ABDOMEN-PELVIS--MULTIFOCAL ATELECTASIS IN BOTH LUNGS. NO P.E. OR ACUTE PROCESS. NORMAL AORTA. CARDIOMEGALY. MODERATE VOLUME OF STOOL IN COLON-C/W CONSTIPATION, OTHERWISE NO ACUTE PROCESS PT STAT RAD VIA FAX AT 5698 Reviewed: Reviewed by Me Departure Communication (Admissions) 2121--SPOKE WITH DR. HARDIN, ACCEPTS PT FOR ADMIT. WILL START HEPARIN. Impression Primary Impression: NSTEMI (non-ST elevated myocardial infarction) Additional Impressions: IDDM (insulin dependent diabetes mellitus) HX OF SEVERE PERIPHERAL VASCULAR DISEASE CAD (coronary artery disease) Disposition: ADMITTED INPATIENT Condition: Stable Admissions Decision to Admit Reason: Admit from ER (General) Decision to Admit/Date: Jul 11, 2019 Time/Decision to Admit Time: 04:20 Departure-Patient Inst. Referrals: TERRI TAVAREZ DO (PCP/Family) Primary Care Physician EDDY MIRELES DO Jul 11, 2019 05:10
--- NOTE | 2019-07-11 05:50 | NUR ---
ARLIN CANCINO admitted to room 417-1, with an admitting diagnosis of NSTEMI, on 07/11/19 from AM via [facility], accompanied by STAFF .ARLIN CANCINO introduced to surroundings, call light, bed controls, phone, TV, temperature control, lights, meal times, smoking policy, visitor policy, side rail policy, bathrooms and showers. Patient Rights given to patient in the handbook. ARLIN CANCINO verbalizes understanding that [facility] is not responsible for the loss or damage to any personal effects or valuables that are kept in the patients posession during their hospitalization.
[2019-07-11] MEDS ORDERED: HEParin 1000 UNIT/ML BOLUS (FULL THERAPY) IV PRN (06:45)
[2019-07-11] MEDS ORDERED: HEParin DRIP 25000 UNIT/500ML (FULL THERAPY) IV SCH (06:45)
--- NOTE | 2019-07-11 06:53 | Diagnostic Imaging Report ---
Indication: Chest pain. Comparison: 03/22/2019. Discussion: Single portable upright view of the chest was obtained. Low lung volumes. Normal heart size. Bibasilar infiltrates are nonspecific and could be seen with atelectasis and/or pneumonia. No pleural fluid or pneumothorax. No osseous abnormality. Impression: 1. Nonspecific bibasilar infiltrates. Dictated by: Dictated on workstation # [id number]
[2019-07-11] MEDS ORDERED: morphine INJ 4 MG/ML 1 ML (VIAL/SYRINGE) IV PRN (07:00)
--- NOTE | 2019-07-11 07:32 | Diagnostic Imaging Report ---
Exam: CT chest, abdomen and pelvis with intravenous contrast. DATE: July 11, 2019. INDICATION: 73-year-old male, chest and abdominal pain. COMPARISON: Chest radiographs July 11, 2019. Abdominal radiographs February 26, 2019. TECHNIQUE: Axial CT images at the level of the chest, abdomen, and pelvis were obtained following the intravenous administration of contrast. Coronal and sagittal reformats were obtained and provided. FINDINGS: There is smooth septal thickening with a symmetric appearance in the right and left upper lobes. There is some septal thickening in the bilateral lower lobes as well as well as additional more confluent alveolar consolidation in the right lower lobe, left lower lobe, and lingula which is not specific. There is no particularly prominent volume loss although some components of atelectasis may be potentially present. There is no identified pulmonary nodule or lung mass. There is no pneumothorax. There is no sizable pleural effusion. There is air in the right internal jugular vein which may relate to recent venous access. There is no identified pulmonary embolus. The main pulmonary artery caliber is measured at 2.9 cm which is right at the upper limits of normal and may potentially reflect pulmonary artery hypertension. There are coronary artery calcifications and additional areas of atherosclerotic disease. The heart is not grossly enlarged. There is no pericardial effusion. There is no identified abnormally enlarged mediastinal, hilar, or axillary lymph node which meets CT size criteria for adenopathy. The liver is unremarkable in size and contour. There is no identified liver lesion. The main, right, and left portal veins are patent. The gallbladder is unremarkable. There is no intrahepatic or extrahepatic bile duct dilation. The main pancreatic duct is not abnormally dilated. Unremarkable appearance of the pancreatic parenchyma. The spleen is normal in size. There is nonspecific thickening of the bilateral adrenal glands. There are subcentimeter low-attenuation left renal lesions too small to characterize. There is a benign 12 mm right renal cyst on axial image 61. There are subcentimeter low-attenuation right renal lesions which are not able to be definitively characterized. There is a high attenuation right renal lesion on axial image 78 measuring 12 mm in size which is not able to be definitively classified on this study. Internal attenuation on postcontrast imaging is measured at 87 Hounsfield units. The urinary collecting systems are not distended. There is no identified renal or ureteral stone. There is a Casper catheter within a collapsed urinary bladder which is otherwise not well evaluated. There is a large volume colonic stool. There is no evidence of acute appendicitis. The intestinal tract is not distended. There is no free intraperitoneal air. There is no drainable fluid collection. There is no free pelvic fluid. There are atherosclerotic calcifications. There is no identified abnormally enlarged lymph node in the abdomen or pelvis which meets CT size criteria for adenopathy. There are multilevel degenerative changes of the spine. There is chondrocalcinosis. There is no identified acute bony abnormality. There are bilateral glenohumeral arthritic changes. IMPRESSION: 1. Nonspecific airspace consolidation in the bilateral lower lobes as well as the lingula. This could relate to aspiration, pneumonia, or other alveolar consolidative process. There may be some components of atelectasis present; however, the entire extent of consolidation does not likely relate to atelectasis. 2. Smooth septal thickening with symmetric appearance of the lungs most suggestive of pulmonary interstitial edema. 3. No identified acute abnormality in the abdomen or pelvis. 4. Indeterminate hyperdense right renal lesion measuring 12 mm in size. Recommend dedicated renal mass protocol CT abdomen without and with intravenous contrast for further assessment. Report given to the patient's nurse (Nataliia) at 7:32 a.m. 07/11/2019/ruby Dictated by: Dictated on workstation # [id number]
[2019-07-11] MEDS ORDERED: BISACODYL 10 MG SUPP (DULCOLAX) RC SCH (08:00)
[2019-07-11] MEDS ORDERED: MILK OF MAGNESIA 400 MG/5 ML 30 ML UDC PO PRN (08:00)
[2019-07-11] MEDS ORDERED: NON-FORMULARY MEDICATION 1 EA EA (Exenatide Microspheres (Bydureon Pen) 2 MG) SQ SCH (08:00)
[2019-07-11] MEDS ORDERED: BACLOFEN 10 MG (LIORESAL) TAB PO PRN (08:00)
[2019-07-11] MEDS ORDERED: GBPN600T PO ×2 (08:24)
[2019-07-11] MEDS ORDERED: CARV25TA PO ×2 (08:24)
[2019-07-11] MEDS ORDERED: HYDR100T27 PO ×2 (08:24)
[2019-07-11] MEDS ORDERED: PANT20TA3 PO ×2 (08:24)
[2019-07-11] MEDS ORDERED: HYDR-3816 PO ×2 (08:24)
[2019-07-11] MEDS ORDERED: ALPR0.254 PO ×2 (08:24)
[2019-07-11] MEDS ORDERED: AMLO5TAB9 PO ×2 (08:33)
[2019-07-11] MEDS ORDERED: ACET325C5 PO ×2 (08:33)
--- NOTE | 2019-07-11 08:40 | NUR ---
APTT IS 110. NO CHANGE IN HEPARIN DRIP
[2019-07-11] MEDS ORDERED: BISA10SU8 RC ×2 (08:44)
[2019-07-11] MEDS ORDERED: FINA5TAB6 PO ×2 (08:44)
[2019-07-11] MEDS ORDERED: MAG-10 PO ×2 (08:44)
[2019-07-11] MEDS: GABAPENTIN 600 MG (NEURONTIN) TAB PO SCH ×2 (09:00→16:18)
[2019-07-11] MEDS: POLYETHYLENE GLYCOL 17 GM (MIRALAX) PACK PO SCH (09:00)
[2019-07-11] MEDS ORDERED: TESTOSTERONE PUMP TD SCH (09:00)
[2019-07-11] MEDS: CARVEDILOL 12.5 MG (COREG) TABLET PO SCH ×2 (09:00→21:03)
[2019-07-11] MEDS: TERAZOSIN 1 MG CAP (HYTRIN) PO SCH ×2 (09:00→21:04)
[2019-07-11] MEDS: GABAPENTIN 300 MG (NEURONTIN) CAP PO SCH (09:00)
[2019-07-11] MEDS ORDERED: ASPIRIN E.C. 81 MG (ECOTRIN) TAB PO SCH (09:30)
--- NOTE | 2019-07-11 09:32 | NUR ---
PATIENT COMPLAINING OF CHEST PAIN BP 177/84, HR 82. BURNING CHEST PAIN RATED A 9 ON NUMERICAL SCALE. EKG DONE. VITALS TAKE. NITRO GIVEN. DR HARDIN ON THE FLOOR TO SEE PATIENT. WILL CONTINUE TO MONITOR
[2019-07-11] MEDS: ASPIRIN E.C. 81 MG (ECOTRIN) TAB PO SCH (09:35)
[2019-07-11] MEDS: NITROGLYCERIN 0.4 MG SL TABS BTL 25'S SL PRN ×2 (09:35→09:56)
--- NOTE | 2019-07-11 09:44 | Cardiology History & Physical ---
HPI-Cardiology Cardiology Consultation Date of Consultation 07/11/19 Date of Admission Time Seen by Provider: 09:40 Indication: Chest pain, abdominal pain HPI 73-year-old gentleman with history of coronary artery disease, has been having abdominal pain, he is a [facility] resident, aiming to the emergency room with abdominal and chest pain, noted to have elevation in history: An. This morning he started to have chest pain described it as burning sensation in the retrosternal area and left upper side of his chest. EKG showed nonspecific changes. Pain is waxing and waning and responsive to nitroglycerin. PMH-Cardiology Seasonal Allergies Seasonal Allergies: No Surgeries Yes (LEFT AKA; CARDIAC CATHS--NO INTERVENTION--LAST ONE 12/2016; MULTIPLE VASCULAR PROCEDURES ON LEFT LEG, PRIOR TO AMPTUATION OF LEFT GREAT TOE AND THEN LEFT AKA; HAS A STENT IN RIGHT WELL. C-SPINE SURGERY AT [facility] 12/2018--DR. MILLIGAN.) Respiratory Yes Cardiovascular Yes (CARDIAC CATHS--NO INTERVENTION; AT LEAST ONE AT [facility] AND ONE HERE 05/26 17--MODERATE TO SEVERE SMALL VESSEL DISEASE, NOT AMENABLE TO INTERVENTION; PT HAS SEVERE PERIPHERAL VASCULAR DISEASE. HAS HAD MULTIPLE PROCEDURES TO LEFT LEG- FAILED AND HAD TOE AMPTUATION AND LATER LEFT AKA; HAS HAD ONE STENT IN RIGHT LEG. CHRONIC RIGHT LEG EDEMA) Deep Vein Thrombosis, Peripheral Vascular, High Cholesterol, Hypertension Neurological Yes Neuropathy Reproductive System Hx Reproductive Disorders: No Sexually Transmitted Disease: No HIV/AIDS: No Genitourinary Yes Benign Prostatic Hyperpl, Prostate Problems Gastrointestinal Yes Chronic Constipation Musculoskeletal Yes (LEFT GREAT TOE AMPUTATION, FOLLOWED BY LEFT AKA FOR GANGRENE/SEVERE PERIPHERAL VASCULAR DISEASE/ CELLULITIS; C-SPINE SURGERY 12/2018 FOR CHRONIC NECK PAIN ; GENERALIZED WEAKNESS; ) Amputee, Arthritis, Chronic Back Pain Endocrine Yes Diabetes, Insulin dep HEENT Yes (Cataract- right eye; POOR DENTITION) Cataract Loss of Vision: Denies Hearing Impairment: Denies Cancer No Did You Recieve Any Treatments: No Psychosocial Yes Sleep Difficulties, Anxiety, Depression Integumentary Yes (GANGRENE AND INFECTION IN LEFT FOOT; CHRONIC WOUNDS TO RIGHT LEG AND FOOT. ) Blood Transfusions No Adverse Rxn to Transfusion: No Social History Patient Social History Marrital Status: Alcohol Use: Denies Use Recreational Drug Use: Yes (HX OF ABUSE "IN 1980'S " ) Dip or chew tobacco?: No Recent Foreign Travel: No Contact w/other who traveled: No Recent Infectious Disease Expo: No Family Hx Family History: Abdominal aortic aneurysm G8 SISTER Alcoholism G8 BROTHER G8 BROTHER G8 BROTHER Arthritis G8 BROTHER G8 BROTHER G8 BROTHER G8 BROTHER G8 BROTHER G8 SISTER G8 SISTER Cardiovascular disease G8 SISTER Diabetes mellitus G8 BROTHER G8 BROTHER G8 BROTHER G8 SISTER G8 SISTER Drug abuse G8 BROTHER G8 BROTHER FH: COPD (chronic obstructive pulmonary disease) 19 FATHER FH: bladder cancer 19 MOTHER FH: prostate cancer 19 FATHER Headache disorder G8 BROTHER G8 BROTHER G8 BROTHER G8 BROTHER G8 BROTHER G8 BROTHER G8 BROTHER G8 BROTHER G8 SISTER G8 SISTER G8 SISTER G8 SISTER Hypercholesterolemia G8 BROTHER G8 BROTHER G8 BROTHER G8 BROTHER G8 BROTHER G8 SISTER G8 SISTER G8 SISTER G8 SISTER Hypertension 19 FATHER G8 BROTHER G8 BROTHER G8 BROTHER G8 BROTHER G8 BROTHER G8 BROTHER G8 BROTHER G8 BROTHER G8 SISTER G8 SISTER G8 SISTER G8 SISTER Thyroid disease Tuberculosis 19 FATHER ROS-Cardiology Review of Systems General: No Chills, No Night Sweats, No Fatigue, No Malaise, No Appetite HEENT: No Head Aches, No Visual Changes, No Eye Pain, No Ear Pain, No Dysphasia, No Sinus Congestion, No Post Nasal Drip, No Sore Throat Pulmonary: Dyspnea; No Cough, No Pleuritic Chest Pain Cardiovascular: Chest Pain; No: Palpitations, Orthopnea, Paroxysmal Noc. Dyspnea, Edema, Lt Headedness Gastrointestinal: Abdominal Pain; No: Nausea, Vomiting, Diarrhea, Constipation, Melena, Hematochezia Genitourinary: No Dysuria, No Frequency, No Incontinence, No Hematuria, No Retention Musculoskeletal: No: neck pain, shoulder pain, arm pain, back pain, hand pain, leg pain, foot pain Neurological: No: Weakness, Numbness, Incoordination, Change in speech, Confusion, Seizures Home Medications & Allergies Allergies: Coded Allergies: Sulfa (Sulfonamide Antibiotics) (Verified Allergy, Severe, HIVES, 02/05/17) temazepam (Verified Allergy, Severe, 02/05/17) MENTAL CONFUSION hydromorphone (Verified Allergy, Unknown, 07/10/19) pravastatin (Verified Adverse Reaction, Severe, RASH, 02/05/17) clopidogrel (Verified Adverse Reaction, Unknown, 02/05/17) Home Medication List Reviewed: Yes Exam-Cardiology Vital Signs Vital Signs Date Time Temp Pulse Resp B/P (MAP) Pulse Ox O2 Delivery O2 Flow Rate FiO2 07/11/19 08:21 82 07/11/19 07:49 37.1 14 146/72 (96) 97 Room Air 07/11/19 06:33 2.00 Exam General Appearance: Alert, Oriented X3, Cooperative, No Acute Distress HEENT: Atraumatic, PERRLA Respiratory: Clear to Auscultation, Normal Air Movement Cardiovascular: Regular Rate, Normal S1, Normal S2, No Murmurs, Other Abdominal: Normal Bowel Sounds, Soft, No Tenderness, No Hepatosplenomegaly, No Masses Extremities: No Clubbing, No Cyanosis, No Edema, Normal Pulses, No Tenderness/Swelling Skin: No Rashes, No Breakdown, No Significant Lesion Neuro: Normal Gait, Normal Speech, Strength at 5/5 X4 Ext, Normal Tone, Sensation Intact Psych/Mental Status: Mental Status NL, Mood NL Results Labs Labs Laboratory Tests 07/10/19 23:44: White Blood Count 5.1, Red Blood Count 3.93L, Hemoglobin 10.6L, Hematocrit 33L, Mean Corpuscular Volume 84, Mean Corpuscular Hemoglobin 27, Mean Corpuscular Hemoglobin Concent 32, Red Cell Distribution Width 14.2, Platelet Count 237, Mean Platelet Volume 10.2, Neutrophils (%) (Auto) 53, Lymphocytes (%) (Auto) 25, Monocytes (%) (Auto) 15H, Eosinophils (%) (Auto) 6, Basophils (%) (Auto) 1, Neutrophils # (Auto) 2.7, Lymphocytes # (Auto) 1.3, Monocytes # (Auto) 0.8, Eosinophils # (Auto) 0.3, Basophils # (Auto) 0.0, Prothrombin Time 13.8, INR Comment 1.0, Activated Partial Thromboplast Time 33, Sodium Level 139, Potassium Level 4.3, Chloride Level 105, Carbon Dioxide Level 26, Anion Gap 8, Blood Urea Nitrogen 27H, Creatinine 1.14, Estimat Glomerular Filtration Rate > 60, BUN/Creatinine Ratio 24, Glucose Level 89, Calcium Level 9.8, Corrected Calcium 9.8, Magnesium Level 3.4H, Total Bilirubin 0.3, Aspartate Amino Transf (AST/SGOT) 21, Alanine Aminotransferase (ALT/SGPT) 36, Alkaline Phosphatase 73, Total Creatine Kinase 137, Creatine Kinase MB 2.6, Myoglobin 112.3H, Troponin I 0.052H, B-Type Natriuretic Peptide 98.0, Total Protein 7.2, Albumin 4.0, Amylase Level 62, Lipase 38 07/11/19 01:00: Urine Color YELLOW, Urine Clarity CLEAR, Urine pH 8, Urine Specific [place] 1.010L, Urine Protein 1+H, Urine Glucose (UA) NEGATIVE, Urine Ketones NEGATIVE, Urine Nitrite NEGATIVE, Urine Bilirubin NEGATIVE, Urine Urobilinogen NORMAL, Urine Leukocyte Esterase NEGATIVE, Urine RBC (Auto) NEGATIVE, Urine RBC RARE, Urine WBC NONE, Urine Squamous Epithelial Cells NONE, Urine Crystals NONE, Urine Bacteria NEGATIVE, Urine Casts NONE, Urine Mucus SMALLH, Urine Culture Indicated NO 07/11/19 03:45: Troponin I 0.058H 07/11/19 08:40: Activated Partial Thromboplast Time 110H A/P-Cardiology Admission Diagnosis Chest pain Non-ST elevation myocardial infarction Abdominal pain Hypertension Admission Status: Inpatient Order (span 2 midnights) Reason for Inpatient Admission: Non-ST elevation myocardial infarction Renal mass Hypertension Peripheral arterial disease Assessment/Plan Chest pain, non-ST elevation myocardial infarction, EKG showed T-wave inversion in the anterolateral lead which has been persistent, had a cardiac catheterization 2016 which showed moderate severe disease in small vessels. Currently having active chest pain, I'll proceed with cardiac catheterization Abdominal pain, patient was noted to have renal mass. Renal mass protocol is recommended. Questionable pulmonary infiltrate on x-ray, questionable aspiration pneumonia. Managed by primary care team Peripheral arterial disease, history of AKA and PCI of the right leg by Dr. Bird, peripheral angiogram done by Dr. Bird in January 2017 had left SFA and popliteal artery angioplasty with drug-eluting balloon and Nitinol stenting, mild iliac disease. Occluded mid stent with diffuse disease Hypertension, labile blood pressure, monitor blood pressure Hyperlipidemia, restart home medication Diabetes mellitus, followed and managed by primary care physician Clinical Quality Measures DVT/VTE Risk/Contraindication: Risk Factor Score Per Nursin RFS Level Per Nursing on Admit: 3=High REBECA HARDIN MD Jul 11, 2019 09:44
[2019-07-11] MEDS ORDERED: ACETAMINOPHEN 325 MG TABLET PO PRN (09:45)
--- NOTE | 2019-07-11 09:56 | NUR ---
PATIENT COMPLAINING OF BURNING CHEST PAIN. AGAIN RATED A 9 ON THE NUMERICAL PAIN SCALE. NITRO GIVEN. BP 167/78 HR 81 2L O2 98% RESP. 14. 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
[2019-07-11] MEDS ORDERED: MAGNESIUM CITRATE 300 ML BTL PO PRN (10:00)
[2019-07-11] MEDS ORDERED: HYDROcodone/APAP 7.5 MG/325 MG (LORTAB, LORCET PLUS) TABLET PO PRN (10:00)
[2019-07-11] MEDS ORDERED: fentaNYL INJECTION 100 MCG/2 ML AMP ONE (10:01)
[2019-07-11] MEDS ORDERED: LIDOCAINE 1% INJ 20 ML 20 ML VIAL ONE (10:01)
[2019-07-11] MEDS ORDERED: HEParin (CATH LAB) 2,000 ML IV ONE (10:01)
[2019-07-11] MEDS ORDERED: MIDAZOLAM 5 MG/5 ML (VERSED) VIAL ONE (10:01)
--- NOTE | 2019-07-11 10:17 | NUR ---
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
[2019-07-11] MEDS ORDERED: NS IV 1000 ML 1,000 ML ONE (10:28)
--- NOTE | 2019-07-11 10:36 | Cardiac Procedure Note-CS/ASA ---
Pre-Procedure Note Pre-Op Procedure Note H&P Reviewed The H&P was reviewed, patient examined and no changes noted. Date H&P Reviewed: Jul 11, 2019 Time H&P Reviewed: 10:36 Conscious Sedation Pre-Proced Time 10:36 ASA Score 3 For ASA 3 and 4: Consider anesthesia and medical clearance. Also, for patients with a history of failed moderate sedation consider anesthesia. Airway Lungs Heart ASA score ASA 1: a normal healthy patient ASA 2: a patient with a mild systemic disease (mid diabetes, controlled hypertension, obesity x ASA 3: a patient with a severe systemic disease that limits activity (angina, COPD, prior Myocardial infarction) ASA 4: a patient with an incapacitating disease that is a constant threat to life (CHF, renal failure) ASA 5: a moribund patient not expected to survive 24 hrs. (ruptured aneurysm) ASA 6: a declared brain- patient whose organs are being harvested. For emergent operations, add the letter E after the classification Mallampati Classification Grade 3 Sedation Plan Analgesia, Amnesia, Plan communicated to team members, Discussed options with patient/fam, Discussed risks with patient/fam The patient is an appropriate candidate to undergo the planned procedure, sedation, and anesthesia. The patient immediately re-assessed prior to indication. REBECA HARDIN MD Jul 11, 2019 10:36
[2019-07-11] MEDS ORDERED: HEParin 1000 UNIT/ML (10ML VIAL) FOR BOLUS ONE (10:47)
[2019-07-11] MEDS ORDERED: NITRO DRIP 25000 MCG/D5W 250 ML IV ONE (10:47)
[2019-07-11] MEDS ORDERED: ASPIRIN 325 MG (5 GR) TABLET ONE (11:10)
[2019-07-11] MEDS ORDERED: TICAGRELOR 90 MG TABLET (BRILINTA) PO ONE (11:10)
--- NOTE | 2019-07-11 11:23 | Cardiac Cath Report ---
Cardiac Cath Report Physician (s)/Clam Bed Worker (s) Physician REBECA HARDIN MD Pre-Procedure Diagnosis Pre-Procedure Diagnosis: chest pain, non-ST elevation myocardial infarctions Post-Procedure Note Procedure Start Date: Jul 11, 2019 Name of Procedure: Left heart catheterization Left ventriculogram Stent to the RCA Findings/Procedure Note PROCEDURE NOTE: 73 years old gentleman with known history of coronary artery disease, peripheral arterial disease, admitted with chest pain, elevated troponin, was having active chest pain this morning, decided to proceed with emergency cardiac catheterization possible PTCA. After explaining the procedure to the patient, all pros and cons were explained, all questions were answered. The patient signed the consent and then he was placed on the cardiac catheterization laboratory. Groin was prepped SL fashion local anesthesia was used. Sheath placed in the right femoral artery. Marga right and left catheter were used to access the coronary system. Pigtail was used to access the left ventricular cavity. Left ventriculogram was done Patient was given 6000 units of heparin, if our guide was advanced to the right coronary artery, has long lesion in the right coronary artery up to 95 percent stenosis, predilatation with 2.0 balloon and then I proceeded with deployment of Resolute [place] 2.030 mm expanded to 2.2 distally overlapping proximally with 2.5 x 14 millimeter expanded to 2.75 mm with excellent results. No residual stenosis, there is severe disease at the distal right PDA, very small artery At the end of the procedure the sheath was removed. Closure device was used FINDINGS: Hemodynamics LV 131/13, end-diastolic pressure of 13 Aorta 162/82 mean of 101 ANATOMY: Left Main is free of obstructive disease Left Anterior Descending is moderate in size with mild to moderate disease diffusely, at the apex area there is severe stenosis the artery is very small artery Left Circumflex is moderate in size with 50-60 percent stenosis at the midportion Right Coronory Artery is small to moderate in size with severe long segment stenosis involving the mid right coronary artery successful deployment of 2 resolute overlapping stent proximally Integrity 2.5 x 14 overlapping with Onxy 2.0 x 30 extended proximally to 2.75 mm and distally 2.2 mm with excellent results, the distal right PDA has severe stenosis very small artery LV Gram his prominent with mildly reduced left ventricular function estimated ejection fraction 50 percent CONCLUSION: 1. Severe long segment stenosis of the midright coronary artery successful deployment of 2 overlapping resolute stent proximally integrity 2.5 x 14 mm in overlapping with on next 2.0 x 30 mm expanded proximally to 2.75 and distally 2.2 mm with excellent results. The distal right PDA has severe stenosis is a hairline artery, not amendable to intervention 2. Severe stenosis at the distal LAD at the apex area, very small artery not amendable to intervention 3. 50-60 percent stenosis at the mid circumflex artery 4. Normal left ventricular size with mildly reduced left ventricular systolic function estimated ejection fraction 50 percent DISCUSSION AND RECOMMENDATION: patient was started on aspirin and Brilinta, continue to monitor tolerance and response Anesthesia Type: Conscious Sedation Estimated blood loss (mL): 30 ml Contrast Amount: 92 ml Total Radiation Dose: 921 mGy Post-Procedure Diagnosis Post-operative diagnosis: Non-ST elevation myocardial infarctions Unstable angina Hypertension Hyperlipidemia Peripheral arterial disease REBECA HARDIN MD Jul 11, 2019 11:23
[2019-07-11] MEDS ORDERED: PATIENT MAY USE OWN MEDS, ALL PO SCH (11:30)
[2019-07-11] MEDS: NS IV 1000 ML 1,000 ML IV SCH ×2 (12:27→23:47)
[2019-07-11] MEDS: hydrALAZINE (APRESOLINE) 25 MG TAB PO SCH ×2 (12:57→21:03)
[2019-07-11] MEDS ORDERED: inSUlin ASPART (NovoLOG) 1 UNIT/0.01 ML (CHARGE PER UNIT) SC SCH (16:45)
[2019-07-11] MEDS ORDERED: CALCIUM CARBONATE 500 MG (TUMS) TAB.CHEW PO PRN (17:00)
[2019-07-11] MEDS ORDERED: MELATONIN 3 MG TABLET PO PRN (17:00)
[2019-07-11] MEDS ORDERED: ONDANSETRON 4 MG (ZOFRAN) ORAL DISSOLVE TAB PO PRN (17:00)
--- NOTE | 2019-07-11 18:57 | Consultation - Hospitalist ---
HPI History of Present Illness: HPI/Chief Complaint Sky Muñiz is a 73yoM with PMH HTN, T2DM, HLD, CAD, BPH, GERD, chronic back pain, who presented with epigastric pain and was admitted with an NSTEMI. His troponin was elevated and he underwent a left heart catheterization which revealed 95% stenosis of the right coronary artery which required two stents to be placed. The hospitalist service has been consulted for medical comanagement. He denies any current symptoms. He has been living at [facility] doing rehab due to weakness. He has a history of left above the knee amputation due to complications from diabetes mellitus. He denies fevers, chills, dyspnea, abdominal pain, nausea, vomiting, diarrhea, constipation, and dysuria. Source: patient Exam Limitations: no limitations Date Seen 07/11/19 Attending Physician Laron Grant MD PCP Los Larose DO Referring Physician Date of Admission Jul 11, 2019 at 04:20 Home Medications & Allergies Home Medications Reviewed patient Home Medication Reconciliation performed by pharmacy medication reconciliations physics technician and/or nursing. Patients Allergies have been reviewed. Allergies Allergies Coded Allergies Sulfa (Sulfonamide Antibiotics) (Verified Allergy, Severe, HIVES, 02/05/17) temazepam (Verified Allergy, Severe, 02/05/17) MENTAL CONFUSION hydromorphone (Verified Allergy, Unknown, 07/10/19) pravastatin (Verified Adverse Reaction, Severe, RASH, 02/05/17) clopidogrel (Verified Adverse Reaction, Unknown, 02/05/17) Past Lkxttso-[id number]-[id number] Hx Past Med/Social Hx: Reviewed Nursing Past Med/Soc Hx Patient Social History Marrital Status: Alcohol Use: Denies Use Recreational Drug Use: Yes (HX OF ABUSE "IN " ) Smoking Status: Former Smoker Former Smoker, Quit: Oct 07, 1979 Type Used: Cigars 2nd Hand Smoke Exposure: No Recent Foreign Travel: No Contact w/other who traveled: No Recent Hopitalizations: No (Left AKA- [place]) Recent Infectious Disease Expo: No Seasonal Allergies Seasonal Allergies: No Past Medical History Surgeries: Amputation, Cardiac, Orthopedic, Prostatectomy, Vascular Surgery Currently Using CPAP: No Currently Using BIPAP: No Cardiac: Chronic Edema/Swelling, Coronary Artery Disease, High Cholesterol, Hypertension, Peripheral Vascular Neurological: Neuropathy Reproductive: No Sexually Transmitted Disease: No HIV/AIDS: No Genitourinary: Benign Prostatic Hyperpl, Prostate Problems Gastrointestinal: Chronic Constipation Musculoskeletal: Amputee, Arthritis, Chronic Back Pain Endocrine: Diabetes, Insulin dep HEENT: Cataract Loss of Vision: Denies Hearing Impairment: Denies Did You Recieve Any Treatments: No Psychosocial: Sleep Difficulties, Anxiety, Depression History of Blood Disorders: No Adverse Reaction to Blood Hernandez: No Family History Abdominal aortic aneurysm G8 SISTER Alcoholism G8 BROTHER G8 BROTHER G8 BROTHER Arthritis G8 BROTHER G8 BROTHER G8 BROTHER G8 BROTHER G8 BROTHER G8 SISTER G8 SISTER Cardiovascular disease G8 SISTER Diabetes mellitus G8 BROTHER G8 BROTHER G8 BROTHER G8 SISTER G8 SISTER Drug abuse G8 BROTHER G8 BROTHER FH: COPD (chronic obstructive pulmonary disease) 19 FATHER FH: bladder cancer 19 MOTHER FH: prostate cancer 19 FATHER Headache disorder G8 BROTHER G8 BROTHER G8 BROTHER G8 BROTHER G8 BROTHER G8 BROTHER G8 BROTHER G8 BROTHER G8 SISTER G8 SISTER G8 SISTER G8 SISTER Hypercholesterolemia G8 BROTHER G8 BROTHER G8 BROTHER G8 BROTHER G8 BROTHER G8 SISTER G8 SISTER G8 SISTER G8 SISTER Hypertension 19 FATHER G8 BROTHER G8 BROTHER G8 BROTHER G8 BROTHER G8 BROTHER G8 BROTHER G8 BROTHER G8 BROTHER G8 SISTER G8 SISTER G8 SISTER G8 SISTER Thyroid disease Tuberculosis 19 FATHER Review of Systems Constitutional: no symptoms reported EENTM: no symptoms reported Respiratory: no symptoms reported Cardiovascular: no symptoms reported Gastrointestinal: abdominal pain (epigastric) Genitourinary: no symptoms reported Musculoskeletal: no symptoms reported Skin: no symptoms reported Psychiatric/Neurological: No Symptoms Reported Physical Exam Physical Exam Vital Signs Vital Signs - First Documented 07/10/19 07/11/19 23:28 05:50 Temp 36.7 Pulse 77 Resp 19 B/P (MAP) 137/96 (110) Pulse Ox 96 O2 Delivery Room Air O2 Flow Rate 2.00 Capillary Refill : Less Than 3 Seconds Height, Weight, BMI Height: 5'9.00" Weight: 139lbs. 0.0oz. 63.670735yn; 25.96 BMI Method:Stated General Appearance: No Apparent Distress, WD/WN, Chronically ill, Other (sitting in wheelchair) HEENT: PERRL/EOMI, Pharynx Normal Neck: Normal Inspection, Supple Respiratory: Lungs Clear, Normal Breath Sounds, No Respiratory Distress Cardiovascular: Regular Rate, Rhythm, No Murmur Gastrointestinal: Normal Bowel Sounds, Non Tender, Soft Extremity: Pedal Edema, Other (left leg amputation) Neurologic/Psychiatric: Alert, Oriented x3, Normal Mood/Affect, Sensory Deficit (SLIGHTLY DECREASED SENSATION TO RIGHT FOOT. ) Skin: Normal Color, Warm/Dry Results Results/Procedures Labs Laboratory Tests 07/10/19 23:44 Patient resulted labs reviewed. Imaging: Reviewed Imaging Report Assessment/Plan Assessment and Plan Assess & Plan/Chief Complaint NSTEMI CAD HLD -Troponin elevated on arrival -ASA given, started on Heparin -Cardiology consulted -Left heart cath with RCA stenosis -Two stents placed -Started on Brilinta -Continue Coreg and Lipitor HTN -Continue Coreg, hydralazine, and terazosin T2DM -Levemir 6 units nightly -SSI BPH -Continue finasteride and terazosin GERD -Continue PPI Chronic back pain -Continue gabapentin and hydrocodone as needed Diagnosis/Problems Diagnosis/Problems (1) NSTEMI (non-ST elevated myocardial infarction) Status: Acute (2) CAD (coronary artery disease) Status: Acute (3) HTN (hypertension) Status: Chronic (4) T2DM (type 2 diabetes mellitus) Status: Chronic (5) HLD (hyperlipidemia) Status: Chronic (6) BPH (benign prostatic hyperplasia) Status: Chronic (7) GERD (gastroesophageal reflux disease) Status: Chronic (8) Chronic back pain Status: Chronic Clinical Quality Measures DVT/VTE Risk/Contraindication: Risk Factor Score Per Nursin RFS Level Per Nursing on Admit: 3=High KAM BILLINGS MD Jul 11, 2019 18:57
[2019-07-11] MEDS ORDERED: FINASTERIDE (PROSCAR) 5 MG TAB PO SCH ×2 (21:00)
[2019-07-11] MEDS ORDERED: DOCUSATE SODIUM 100 MG (COLACE) CAP PO SCH (21:00)
[2019-07-11] MEDS ORDERED: HYDROcodone/APAP 7.5 MG/325 MG (LORTAB, LORCET PLUS) TABLET PO SCH (21:00)
[2019-07-11] MEDS ORDERED: ALPRAZolam 0.25 MG (XANAX) TAB PO SCH (21:00)
[2019-07-11] MEDS ORDERED: glipiZIDE 5 MG (GLUCOTROL) TAB PO SCH (21:00)
[2019-07-11] MEDS ORDERED: traZODone 50 MG (DESYREL) TAB PO SCH (21:00)
[2019-07-11] MEDS: TICAGRELOR 90 MG TABLET (BRILINTA) PO SCH (21:03)
[2019-07-12] VITALS: BP 160/70
[2019-07-12 03:50] LABS: BASOPHILS % (AUTO) 0 % (0-10); EOSINOPHILS # (AUTO) 0.2 10^3/uL (0.0-0.3); EOSINOPHILS % (AUTO) 3 % (0-10); HEMATOCRIT 32 % (40-54); HEMOGLOBIN 10.7 G/DL (13.3-17.7); LYMPHOCYTES # (AUTO) 0.9 X 10^3 (1.0-4.0); LYMPHOCYTES % (AUTO) 13 % (12-44); MEAN CORPUSCULAR HEMOGLOBIN 27 PG (25-34); MEAN CORPUSCULAR HGB CONC 33 G/DL (32-36); MEAN CORPUSCULAR VOLUME 82 FL (80-99); MEAN PLATELET VOLUME 10.7 FL (7.4-10.4); MONOCYTES # (AUTO) 0.8 X 10^3 (0.0-1.0); MONOCYTES % (AUTO) 12 % (0-12); NEUTROPHILS % (AUTO) 72 % (42-75); PLATELET COUNT 239 10^3/uL (130-400); RED CELL DISTRIBUTION WIDTH 14.2 % (10.0-14.5); WHITE BLOOD COUNT 6.9 10^3/uL (4.3-11.0)
[2019-07-12 04:00] VITALS: BP 160/70
[2019-07-12 04:09] LABS: ALANINE AMINOTRANSFERASE 30 U/L (0-55); ALBUMIN 3.4 GM/DL (3.2-4.5); ALKALINE PHOSPHATASE 62 U/L (40-136); BILIRUBIN,TOTAL 0.7 MG/DL (0.1-1.0); BUN/CREATININE RATIO 20; CALCIUM 9.7 MG/DL (8.5-10.1); CARBON DIOXIDE 23 MMOL/L (21-32); CHLORIDE 105 MMOL/L (98-107); CREATININE SERUM 0.96 MG/DL (0.60-1.30); GFR ESTIMATED > 60; GLUCOSE 83 MG/DL (70-105); POTASSIUM 3.9 MMOL/L (3.6-5.0); SODIUM 137 MMOL/L (135-145); TOTAL PROTEIN 6.4 GM/DL (6.4-8.2)
[2019-07-12] MEDS ORDERED: ISOSORBIDE MONONITRATE 60 MG (IMDUR) TAB PO SCH (06:30)
[2019-07-12] MEDS: NS IV 1000 ML 1,000 ML IV SCH (08:03)
[2019-07-12] MEDS ORDERED: PANTOPRAZOLE 20 MG TABLET (PROTONIX) PO SCH (09:00)
[2019-07-12] MEDS ORDERED: amLODIPine 5 MG (NORVASC) TAB PO SCH (09:00)
[2019-07-12] MEDS ORDERED: ASPIRIN E.C. 81 MG (ECOTRIN) TAB PO SCH (09:00)
[2019-07-12] MEDS: GABAPENTIN 300 MG (NEURONTIN) CAP PO SCH (09:37)
[2019-07-12] MEDS: TERAZOSIN 1 MG CAP (HYTRIN) PO SCH (09:37)
[2019-07-12] MEDS: ASPIRIN E.C. 81 MG (ECOTRIN) TAB PO SCH (09:38)
[2019-07-12] MEDS: TICAGRELOR 90 MG TABLET (BRILINTA) PO SCH (09:38)
[2019-07-12] MEDS: CARVEDILOL 12.5 MG (COREG) TABLET PO SCH (09:38)
[2019-07-12] MEDS: hydrALAZINE (APRESOLINE) 25 MG TAB PO SCH ×2 (09:38→14:05)
[2019-07-12] MEDS: GABAPENTIN 600 MG (NEURONTIN) TAB PO SCH (09:38)
[2019-07-12] MEDS: POLYETHYLENE GLYCOL 17 GM (MIRALAX) PACK PO SCH (09:47)
--- NOTE | 2019-07-12 11:10 | Diagnostic Imaging Report ---
EXAM: Portable erect AP chest at 4:25 a.m. INDICATION: Respiratory distress FINDINGS: As on the prior exam of 07/11/2019 there is shallow inspiration. There does seem to be somewhat greater involvement of the left lung by pneumonia/atelectasis and fluid than on the prior exam. The right basilar atelectasis/infiltrate is essentially no different. The central pulmonary vascularity is prominent and most likely there is an element of mild pulmonary congestion present. The heart size is stable. The mediastinum is not wide. The osseous structures are intact. IMPRESSION: The appearance of the chest has worsened since the prior study as there is greater involvement of the left lung base by pneumonia/atelectasis. A follow-up exam would be recommended for continued evaluation. Dictated by: Dictated on workstation # [id number]
[2019-07-12] MEDS ORDERED: DOXY100C2 PO ×2 (11:29)
[2019-07-12] MEDS ORDERED: TICA90TA PO ×2 (11:29)
[2019-07-12] MEDS ORDERED: ASPI-983 PO ×2 (11:29)
--- NOTE | 2019-07-12 11:38 | Discharge Summary ---
Discharge Summary Reconcile Patient Problems Problems Reviewed?: Yes Hospital Course Hospital Course Date of Admission: Jul 11, 2019 at 04:20 Admission Diagnosis : NSTEMI Family Physician/Provider: Los Larose DO Date of Discharge: 07/12/19 Discharge Diagnosis: NSTEMI Hospital Course: Sky Muñiz is a 73yoM with HTN, T2DM, HLD, CAD, PAD, who presented with chest pain and was admitted with NSTEMI. He underwent coronary intervention with Dr. Grant on 07/11 and was found to have RCA occlusion 95% and had two coronary stents placed. He was started on Brilinta due to clopidogrel allergy. His chest xray was concerning for a developing left lower lobe pneumonia, so despite being afebrile without leukocytosis, cough, or shortness of breath, he was prescribed a short course of doxycycline. He should follow up with Dr. Lewis in about two weeks. He had a CT scan which revealed a 12 mm right renal lesion. He needs to undergo a CT abdomen with and without contrast at some point in the near future to further assess this lesion. His PCP Dr. Larose should follow up with him regarding this issue. Labs and Pending Lab Test: Laboratory Tests 07/11/19 21:32: Glucometer 120H 07/12/19 03:20: White Blood Count 6.9, Red Blood Count 3.96L, Hemoglobin 10.7L, Hematocrit 32L, Mean Corpuscular Volume 82, Mean Corpuscular Hemoglobin 27, Mean Corpuscular Hemoglobin Concent 33, Red Cell Distribution Width 14.2, Platelet Count 239, Mean Platelet Volume 10.7H, Neutrophils (%) (Auto) 72, Lymphocytes (%) (Auto) 13, Monocytes (%) (Auto) 12, Eosinophils (%) (Auto) 3, Basophils (%) (Auto) 0, Neutrophils # (Auto) 5.0, Lymphocytes # (Auto) 0.9L, Monocytes # (Auto) 0.8, Eosinophils # (Auto) 0.2, Basophils # (Auto) 0.0, Sodium Level 137, Potassium Level 3.9, Chloride Level 105, Carbon Dioxide Level 23, Anion Gap 9, Blood Urea Nitrogen 19H, Creatinine 0.96, Estimat Glomerular Filtration Rate > 60, BUN/Creatinine Ratio 20, Glucose Level 83, Calcium Level 9.7, Corrected Calcium 10.2H, Total Bilirubin 0.7, Aspartate Amino Transf (AST/SGOT) 19, Alanine Aminotransferase (ALT/SGPT) 30, Alkaline Phosphatase 62, Total Protein 6.4, Albumin 3.4 Home Meds Active Doxycycline Hyclate 100 Mg Capsule 100 Mg PO BID 5 Days Aspirin EC (Aspirin) 81 Mg Tablet.dr 81 Mg PO DAILY 90 Days Brilinta (Ticagrelor) 90 Mg Tablet 90 Mg PO BID 90 Days Terazosin HCl 1 Mg Capsule 1 Mg PO BID 30 Days Isosorbide Mononitrate ER (Isosorbide Mononitrate) 60 Mg Tab 60 Mg PO DAILY@0630 30 Days Reported Darcie-Lanta Liquid (Mag Hydrox/Al Hydrox/Simeth) Unknown Strength Oral.susp Unknown Dose PO Q4H PRN Finasteride 5 Mg Tablet 5 Mg PO HS Bisacodyl 10 Mg Supp.rect 10 Mg RC PRN Amlodipine Besylate 5 Mg Tablet 5 Mg PO DAILY Tylenol (Acetaminophen) 325 Mg Capsule 650 Mg PO Q4H PRN Hydrocodone-Acetamin 7.5-325 (Hydrocodone/Acetaminophen) 1 Each Tablet 7.5-325 Mg PO TID PRN Carvedilol 25 Mg Tablet 25 Mg PO BID Hydralazine HCl 100 Mg Tablet 100 Mg PO TID Pantoprazole Sodium 20 Mg Tablet.dr 20 Mg PO DAILY Alprazolam 0.25 Mg Tablet 0.25 Mg PO HS Gabapentin 600 Mg Tablet 600 Mg PO BID 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 2 Pump TD DAILY Gabapentin 300 Mg Capsule 300 Mg PO DAILY Miralax (Polyethylene Glycol 3350) 17 Gm Powd.pack 17 Gm PO DAILY Calmoseptine Ointment (Menthol/Lanolin/Calamine/Znox) 71 Gm Oint TOP BID APPLY TO COCCYX Trazodone HCl 50 Mg Tablet 50 Mg PO HS Milk of Magnesia (Magnesium Hydroxide) 400 Mg/5 Ml Oral.susp 30 Ml PO DAILY PRN Glipizide 10 Mg Tablet 20 Mg PO BID TAKES 2 (10MG) TABLETS Toujeo Solostar (Insulin Glargine,Hum.rec.anlog) 300 Unit/1 Ml Insuln.pen 6 Unit SQ DAILY Humalog (Insulin Lispro) 100 Unit/1 Ml Vial SQ TIDAC 151-199 give 0 units 200-249 give 2 units 250-299 give 3 units 300-349 give 4 units 350-399 give 5 units 400 and above - contact PCP Magnesium Citrate 296 Ml Solution 296 Ml PO EVERY 4 DAYS PRN 1 BOTTLE EVERY 4 DAYS, IF NO BOWEL MOVEMENT, NEEDED FOR CONSTIPATION Lipitor (Atorvastatin Calcium) 10 Mg Tablet 10 Mg PO HS [place] 7.5-325 Tablet (Hydrocodone/Acetaminophen) 1 Each Tablet 1 Tab PO HS Baclofen 10 Mg Tablet 10 Mg PO Q8H PRN Colace (Docusate Sodium) 100 Mg Capsule 300 Mg PO HS TAKES 3 (100MG) CAPSULES Finasteride 5 Mg Tablet 5 Mg PO HS Bydureon Pen (Exenatide Microspheres) 2 Mg/0.65 Ml Pen.injctr 2 Mg SQ WEEK Aspirin 325 Mg Tablet 81 Mg PO DAILY Instructions to Patient/Family Assessment/Instructions Take medications as prescribed. You must take Aspirin and Brilinta to prevent thrombosis of your coronary stents. Follow up with Dr. Lewis in about two weeks. Follow Up Appt.: Dr. Lewis in about 2 weeks Skilled NF Admit to: [facility] Certification ([facility]) I certify that SNF services are required to be given on an inpatient basis because of the above named patient's need for long term care on a continuing basis for the conditions(s) for which he/she was receiving inpatient hospital services prior to his/her transfer to the SNF. Long Term Facility Order: Nursing Services, Physical Therapy-Evaluate & Treat Oxygen Delivery Method: Room Air Discharge Diet: ADA Diet Daily Activity as Tolerated: Yes Resuscitation Status: Full Code Kam Billings Jul 12, 2019 11:32 Pneu Vac Indicated: Yes Discharge Physical Exam General: Alert, Oriented X3, Cooperative, No Acute Distress HEENT: Atraumatic, EOMI Lungs: Clear to Auscultation, Normal Air Movement Heart: Regular Rate, Other (regular rhythm) Abdomen: Normal Bowel Sounds, Soft, No Tenderness Extremities: No Edema, Other (left AKA) Psych/Mental Status: Mental Status NL, Mood NL KAM BILLINGS MD Jul 12, 2019 11:37
--- NOTE | 2019-07-12 11:39 | Cardiology Progress Note ---
Subjective Date Seen by Provider: Jul 12, 2019 Time Seen by Provider: 11:37 Subjective/Events-last exam patient is laying down in bed, feeling better, groin is healing well. Review of Systems General: No Chills, No Night Sweats, No Fatigue, No Malaise, No Appetite, No Other HEENT: No Head Aches, No Visual Changes, No Eye Pain, No Ear Pain, No Dysphasia, No Sinus Congestion, No Post Nasal Drip, No Sore Throat, No Other Pulmonary: No Dyspnea, No Cough, No Pleuritic Chest Pain, No Other Cardiovascular: No: Chest Pain, Palpitations, Orthopnea, Paroxysmal Noc. Dyspnea, Edema, Lt Headedness, Other Objective-Cardiology Exam Last Set of Vital Signs Vital Signs 07/12/19 07/12/19 07/12/19 07/12/19 04:00 07:00 08:00 09:48 Temp 36.2 Pulse 102 Resp 18 B/P (MAP) 160/70 (100) Pulse Ox 98 O2 Delivery Room Air O2 Flow Rate 2.00 2.00 Capillary Refill : Less Than 3 Seconds I&O Intake and Output 07/12/19 00:00 Intake Total 3475 ml Output Total 2825 ml Balance 650 ml Intake Oral 1475 ml IV Total 2000 ml Output Urine Total 2825 ml Daily Weight Change Unsure Unsure General: Alert, Oriented X3, Cooperative, No Acute Distress HEENT: Atraumatic, PERRLA Neck: Supple, No JVD Lungs: Clear to Auscultation, Normal Air Movement Heart: Regular Rate, Normal S1, Normal S2, No Murmurs, Other Abdomen: Normal Bowel Sounds, Soft, No Tenderness, No Hepatosplenomegaly, No Masses Extremities: No Clubbing, No Cyanosis, No Edema, Normal Pulses, No Tenderness/Swelling Skin: No Rashes, No Breakdown, No Significant Lesion Neuro: Normal Speech, Strength at 5/5 X4 Ext, Normal Tone, Sensation Intact Psych/Mental Status: Mental Status NL, Mood NL Results Lab Laboratory Tests 07/12/19 03:20 A/P-Cardiology Admission Diagnosis Chest pain Non-ST elevation myocardial infarction Abdominal pain Hypertension Assessment/Plan Chest pain, non-ST elevation myocardial infarction, went cardiac catheterization with stenting to the right coronary artery Coronary artery disease, cardiac catheterization was carried out on July 12, 2019: 1. Severe long segment stenosis of the midright coronary artery successful deployment of 2 overlapping resolute stent proximally integrity 2.5 x 14 mm in overlapping with on next 2.0 x 30 mm expanded proximally to 2.75 and distally 2.2 mm with excellent results. The distal right PDA has severe stenosis is a hairline artery, not amendable to intervention 2. Severe stenosis at the distal LAD at the apex area, very small artery not amendable to intervention 3. 50-60 percent stenosis at the mid circumflex artery 4. Normal left ventricular size with mildly reduced left ventricular systolic function estimated ejection fraction 50 percent Abdominal pain, patient was noted to have renal mass. Renal mass protocol is recommended, followed by primary care team Questionable pulmonary infiltrate on x-ray, questionable aspiration pneumonia. Managed by primary care team Peripheral arterial disease, history of AKA and PCI of the right leg by Dr. Bird, peripheral angiogram done by Dr. Bird in January 2017 had left SFA and popliteal artery angioplasty with drug-eluting balloon and Nitinol stenting, mild iliac disease. Occluded mid stent with diffuse disease Hypertension, labile blood pressure, monitor blood pressure Hyperlipidemia, restart home medication Diabetes mellitus, followed and managed by primary care physician Clinical Quality Measures DVT/VTE Risk/Contraindication: Risk Factor Score Per Nursin RFS Level Per Nursing on Admit: 3=High REBECA HARDIN MD Jul 12, 2019 11:39
[2019-07-12 11:40] VITALS: BP 150/69
[2019-07-12 15:30] VITALS: BP 150/69
== END 2019-07-12 15:30 | DRG 246 ==
LOC: EDUNIT# 23:25 → ER 23:27 → 4TH 07-11 04:20 → ICU 07-11 11:40
PROVIDERS: ADMIT Internal Medicine Cardiovascular Disease; ATTEND Internal Medicine Cardiovascular Disease
PROC: 027035Z Dilation of Coronary Artery, One Artery with Two Drug-eluting Intraluminal Devices, Percutaneous Approach (ICD-10-PCS; principal; 2019-07-11)
PROC: 4A023N7 Measurement of Cardiac Sampling and Pressure, Left Heart, Percutaneous Approach (ICD-10-PCS; 2019-07-11)
PROC: B2111ZZ Fluoroscopy of Multiple Coronary Arteries using Low Osmolar Contrast (ICD-10-PCS; 2019-07-11)
PROC: B2151ZZ Fluoroscopy of Left Heart using Low Osmolar Contrast (ICD-10-PCS; 2019-07-11)
DX: I21.4 Non-ST elevation (NSTEMI) myocardial infarction (principal); J18.1 Lobar pneumonia, unspecified organism; Q25.0 Patent ductus arteriosus; E78.00 Pure hypercholesterolemia, unspecified; E11.51 Type 2 diabetes mellitus with diabetic peripheral angiopathy without gangrene; K59.00 Constipation, unspecified; N40.0 Benign prostatic hyperplasia without lower urinary tract symptoms; H26.9 Unspecified cataract; F32.9 Major depressive disorder, single episode, unspecified; F41.9 Anxiety disorder, unspecified; E11.40 Type 2 diabetes mellitus with diabetic neuropathy, unspecified; M54.9 Dorsalgia, unspecified; G89.29 Other chronic pain; M19.90 Unspecified osteoarthritis, unspecified site; G47.30 Sleep apnea, unspecified; I25.110 Atherosclerotic heart disease of native coronary artery with unstable angina pectoris; K21.9 Gastro-esophageal reflux disease without esophagitis; N28.9 Disorder of kidney and ureter, unspecified; Z79.82 Long term (current) use of aspirin; Z79.4 Long term (current) use of insulin; Z87.891 Personal history of nicotine dependence; Z86.718 Personal history of other venous thrombosis and embolism; Z89.612 Acquired absence of left leg above knee; Z95.820 Peripheral vascular angioplasty status with implants and grafts
CPT/HCPCS: 36415; 51702; 71045; 71275; 74177; 80053; 81000; 82150; 82550; 82553; 82962; 83690; 83735; 83874; 83880; 84484; 85025; 85027; 85610; 85730; 93005; 93041; 93458; 96361; 96365; 96375; 96376

== ENCOUNTER → 2019-07-13 | Outpatient (CLI) | payer MEDICARE ==
[~2019-07-13] MED LIST changes: +ACET325C5 PO; +ALPR0.254 PO; +ASPI-983 PO; +BISA10SU8 RC; +DOXY100C2 PO; +GBPN600T PO; +HYDR-3816 PO; +MAG-10 PO; +PANT20TA3 PO; +TICA90TA PO
[2019-07-13 22:05] LABS: CALCIUM 9.5 MG/DL (8.5-10.1); CREATININE SERUM 1.57 MG/DL (0.60-1.30); POTASSIUM 4.3 MMOL/L (3.6-5.0)
== END ==
LOC: CVS 20:48
PROVIDERS: ATTEND Family Medicine
DX: I50.9 Heart failure, unspecified (principal); R60.9 Edema, unspecified
CPT/HCPCS: 80048; 83880

== ENCOUNTER → 2019-07-15 | Outpatient (CLI) | payer MEDICARE ==
--- NOTE | 2019-07-15 11:07 | Diagnostic Imaging Report ---
INDICATION: Pneumonia. TIME OF EXAM: 10:12 AM Correlation is made with prior chest from 07/12/2019. FINDINGS: Lung volumes are slightly diminished. There is some persistent infiltrate or atelectasis in the left base partially obscuring the left hemidiaphragm. Similar findings in the right base are noted but to a lesser degree. Mid and upper lung edmond are clear. No effusion or pneumothorax is seen. IMPRESSION: Continued bibasilar infiltrates or atelectasis, left greater when compared with examination 3 days earlier. Dictated by: Dictated on workstation # [id number]
== END ==
LOC: RAD 10:03
PROVIDERS: ATTEND Family Medicine
DX: J18.9 Pneumonia, unspecified organism (principal)
CPT/HCPCS: 71045

== ENCOUNTER 2019-07-19 20:09 | Inpatient (IN) | payer MEDICARE ==
[~2019-07-19] VITALS: Ht 175 cm; Wt 62.4 kg
[2019-07-19] MEDS ORDERED: NITROGLYCERIN 2% OINT 1 GM UNIT DOSE PACKET TOP STA (20:13)
[2019-07-19 20:28] LABS: BASOPHILS % (AUTO) 0 % (0-10); EOSINOPHILS # (AUTO) 0.4 10^3/uL (0.0-0.3); EOSINOPHILS % (AUTO) 8 % (0-10); HEMATOCRIT 33 % (40-54); HEMOGLOBIN 10.6 G/DL (13.3-17.7); LYMPHOCYTES # (AUTO) 1.2 X 10^3 (1.0-4.0); LYMPHOCYTES % (AUTO) 23 % (12-44); MEAN CORPUSCULAR HEMOGLOBIN 27 PG (25-34); MEAN CORPUSCULAR HGB CONC 32 G/DL (32-36); MEAN CORPUSCULAR VOLUME 82 FL (80-99); MEAN PLATELET VOLUME 10.5 FL (7.4-10.4); MONOCYTES # (AUTO) 0.7 X 10^3 (0.0-1.0); MONOCYTES % (AUTO) 13 % (0-12); NEUTROPHILS % (AUTO) 56 % (42-75); PLATELET COUNT 306 10^3/uL (130-400); RED CELL DISTRIBUTION WIDTH 14.4 % (10.0-14.5); WHITE BLOOD COUNT 5.4 10^3/uL (4.3-11.0)
--- NOTE | 2019-07-19 20:34 | Diagnostic Imaging Report ---
INDICATION: Chest pain. Frontal chest obtained at 08:25 p.m. and compared to 07/15/2019. Heart is normal in size. There is poor inspiration with bibasilar atelectatic change. There is no pneumothorax or pleural fluid. IMPRESSION: Poor inspiration with bibasilar atelectatic changes. There is no pneumothorax or pleural fluid. Dictated by: Dictated on workstation # [id number]
[2019-07-19 20:40] LABS: PROTHROMBIN TIME PATIENT 13.9 SEC (12.2-14.7)
[2019-07-19 20:50] LABS: ALANINE AMINOTRANSFERASE 20 U/L (0-55); ALBUMIN 3.9 GM/DL (3.2-4.5); ALKALINE PHOSPHATASE 68 U/L (40-136); AMYLASE 79 U/L (25-125); BILIRUBIN,TOTAL 0.4 MG/DL (0.1-1.0); BUN/CREATININE RATIO 23; CALCIUM 10.2 MG/DL (8.5-10.1); CARBON DIOXIDE 23 MMOL/L (21-32); CHLORIDE 105 MMOL/L (98-107); CREATINE KINASE 139 U/L (30-200); CREATININE SERUM 1.11 MG/DL (0.60-1.30); GFR ESTIMATED > 60; GLUCOSE 99 MG/DL (70-105); LIPASE 66 U/L (8-78); MAGNESIUM 2.5 MG/DL (1.6-2.4); POTASSIUM 4.2 MMOL/L (3.6-5.0); SODIUM 140 MMOL/L (135-145); TOTAL PROTEIN 7.3 GM/DL (6.4-8.2)
[2019-07-19] MEDS ORDERED: morphine INJ 10 MG/ML 1ML (SYR OR VIAL) IVP STA ×3 (20:55→22:13)
[2019-07-19 20:57] LABS: CREATINE KINASE MB 3.2 NG/ML (<6.6)
[2019-07-19] MEDS ORDERED: ENOXAPARIN 80 MG/0.8 ML (LOVENOX) SYR SC ONE (21:30)
[2019-07-19] MEDS ORDERED: meTOprolol SUCCINATE 100 MG (TOPROL XL) TAB PO ONE (21:30)
[2019-07-19 22:40] VITALS: BP 185/84
--- NOTE | 2019-07-19 22:40 | NUR ---
ARLIN CANCINO admitted to room 431-1, with an admitting diagnosis of NSTEMI;IDDM, on 07/19/19 from ED via [facility], accompanied by STAFF AND .ARLIN CANCINO introduced to surroundings, call light, bed controls, phone, TV, temperature control, lights, meal times, smoking policy, visitor policy, side rail policy, bathrooms and showers. Patient Rights given to patient in the handbook. ARLIN CANCINO verbalizes understanding that [facility] is not responsible for the loss or damage to any personal effects or valuables that are kept in the patients posession during their hospitalization.
[2019-07-19 23:00] VITALS: BP 184/79
[2019-07-19] MEDS ORDERED: morphine INJ 4 MG/ML 1 ML (VIAL/SYRINGE) IV PRN (23:00)
--- NOTE | 2019-07-19 23:09 | NUR ---
Contacted Dr. Snow about admission status. Agreed to make patient CSD overflow to Medical floor.
[2019-07-19 23:15] VITALS: BP 188/90
[2019-07-19 23:28] VITALS: BP 180/83
[2019-07-19 23:45] VITALS: BP 184/80
[2019-07-20] VITALS (26 sets, daily range): BP systolic 151–187; BP diastolic 70–99
[2019-07-20] MEDS ORDERED: NITROGLYCERIN 2% OINT 1 GM UNIT DOSE PACKET TOP SCH ×2 (02:30)
[2019-07-20] MEDS: inSUlin ASPART (NovoLOG) 1 UNIT/0.01 ML (CHARGE PER UNIT) SC SCH ×4 (05:29→22:14)
[2019-07-20 06:40] LABS: BASOPHILS % (AUTO) 1 % (0-10); EOSINOPHILS # (AUTO) 0.3 10^3/uL (0.0-0.3); EOSINOPHILS % (AUTO) 5 % (0-10); HEMATOCRIT 33 % (40-54); HEMOGLOBIN 10.8 G/DL (13.3-17.7); LYMPHOCYTES % (AUTO) 18 % (12-44); MEAN CORPUSCULAR HEMOGLOBIN 27 PG (25-34); MEAN CORPUSCULAR HGB CONC 33 G/DL (32-36); MEAN CORPUSCULAR VOLUME 83 FL (80-99); MEAN PLATELET VOLUME 10.6 FL (7.4-10.4); MONOCYTES # (AUTO) 0.6 X 10^3 (0.0-1.0); MONOCYTES % (AUTO) 11 % (0-12); NEUTROPHILS # (AUTO) 3.6 X 10^3 (1.8-7.8); NEUTROPHILS % (AUTO) 66 % (42-75); PLATELET COUNT 278 10^3/uL (130-400); RED CELL DISTRIBUTION WIDTH 14.2 % (10.0-14.5); WHITE BLOOD COUNT 5.5 10^3/uL (4.3-11.0)
--- NOTE | 2019-07-20 06:57 | ED Chest Pain ---
General Chief Complaint: Chest Pain Stated Complaint: NSTEMI; IDDM Nursing Triage Note: PATIENT ARRIVES VIA EMS TO ROOM 7 FROM [facility]. REPORT FROM [facility] STATES PATIENT C/O CHEST PAIN WITH NO RADIATION BUT PATIENT STATED TO THEM THAT "IT FEELS LIKE IT DID WHEN I HAD MY LAST HEART ATTACK". REPORT STATES BP WS 172/70 HEART RATE 103 FOR THIS FULL CODE A&O X4 PATIENT. AT THIS TIME PATIENT IS DENYING CHEST PAIN AND SAYS HIS PAIN IS IN HIS LEFT SHOULDER AND ARM MUSHTAQ. Nursing Sepsis Screen: No Definite Risk Source: patient, residential records, old records History of Present Illness Date Seen by Provider: Jul 19, 2019 Time Seen by Provider: 20:10 Initial Comments PT ARRIVES VIA EMS FROM [facility] NO IV, EMS DID GIVE 4 BABY ASPIRIN PRIOR TO ARRIVAL C/O LEFT SHOULDER AND ARMPIT PAIN/ PRESSURE SINCE 1899 TONIGHT. WAS LAYING IN BED WHEN PAIN BEGAN PT WAS ADMITTED 07/11-07/12--PT HAD NSTEMI AND 2 STENTS IN MID RIGHT CORONARY ARTERY. PT WAS ALSO NOTED TO HAVE SEVERE STENOSIS OF DISTAL LAD, AND DISTAL RIGHT PDA, BUT NEITHER WERE AMENABLE TO INTERVENTION. EF 50%. PT HAS HISTORY OF PAD AND HAS HAD LEFT AKA, AFTER MULTIPLE PROCEDURES FOR RE- VASCULARIZATION, AND HAS HAD RIGHT LEG STENT. PT STATES HE HAS SHORTNESS OF BREATH, BUT STATES THAT HAS BEEN ONGOING FOR THE LAST WEEK, AND HE WAS DX WITH PNEUMONIA WITH THAT HOSPITALIZATION, AND HAS BEEN ON ANTIBIOTICS. NO SIGNIFICANT COUGH NO FEVER SHORTNESS OF BREATH IS NOT ANY WORSE THAN IT HAS BEEN NO INCREASE IN RIGHT LEG SWELLING NO SWEATS NO PALPITATIONS NO NAUSEA/VOMITING. REPORTS THAT PT HAS A FOLLOW UP APPOINTMENT WITH DR. CHILDRESS. PCP: DR. TAVAREZ Allergies and Home Medications Allergies Coded Allergies: Sulfa (Sulfonamide Antibiotics) (Verified Allergy, Severe, HIVES, 07/19/19) temazepam (Verified Allergy, Severe, 07/19/19) MENTAL CONFUSION hydromorphone (Verified Allergy, Unknown, 07/19/19) pravastatin (Verified Adverse Reaction, Severe, RASH, 07/19/19) clopidogrel (Verified Adverse Reaction, Unknown, 07/19/19) Home Medications Acetaminophen 325 Mg Capsule, 650 MG PO Q4H PRN for PAIN-MILD, (Reported) Alprazolam 0.25 Mg Tablet, 0.25 MG PO HS, (Reported) Amlodipine Besylate 5 Mg Tablet, 5 MG PO DAILY, (Reported) Aspirin 81 Mg Tablet.dr, 81 MG PO DAILY Prescribed by: KAM BILLINGS on 07/12/19 112 Atorvastatin Calcium 10 Mg Tablet, 10 MG PO HS, (Reported) Baclofen 10 Mg Tablet, 10 MG PO Q8H PRN for MUSCLE SPASMS, (Reported) Bisacodyl 10 Mg Supp.rect, 10 MG RC PRN, (Reported) Carvedilol 25 Mg Tablet, 25 MG PO BID, (Reported) Docusate Sodium 100 Mg Capsule, 300 MG PO HS, (Reported) TAKES 3 (100MG) CAPSULES Doxycycline Hyclate 100 Mg Capsule, 100 MG PO BID Prescribed by: KAM BILLINGS on 07/12/191128 Exenatide Microspheres 2 Mg/0.65 Ml Pen.injctr, 2 MG SQ WEEK, (Reported) Finasteride 5 Mg Tablet, 5 MG PO HS, (Reported) Finasteride 5 Mg Tablet, 5 MG PO HS, (Reported) Gabapentin 300 Mg Capsule, 300 MG PO DAILY, (Reported) Gabapentin 600 Mg Tablet, 600 MG PO BID, (Reported) Glipizide 10 Mg Tablet, 20 MG PO BID, (Reported) TAKES 2 (10MG) TABLETS Hydralazine HCl 100 Mg Tablet, 100 MG PO TID, (Reported) Hydrocodone/Acetaminophen 1 Each Tablet, 1 TAB PO HS, (Reported) Hydrocodone/Acetaminophen 1 Each Tablet, 7.5-325 MG PO TID PRN for PAIN-SEVERE, (Reported) Insulin Glargine,Hum.rec.anlog 300 Unit/1 Ml Insuln.pen, 6 UNIT SQ DAILY, (Reported) Insulin Lispro 100 Unit/1 Ml Vial, SQ TIDAC, (Reported) 151-199 give 0 units 200-249 give 2 units 250-299 give 3 units 300-349 give 4 units 350-399 give 5 units 400 and above - contact PCP Isosorbide Mononitrate 60 Mg Tab, 60 MG PO DAILY@0630 Prescribed by: ALYX SIN on 03/26/19 1633 Mag Hydrox/Al Hydrox/Simeth Unknown Strength Oral.susp, Unknown Dose PO Q4H PRN for INDIGESTION, (Reported) Magnesium Citrate 296 Ml Solution, 296 ML PO EVERY 4 DAYS PRN for CONSTIPATION- 9TH LINE, (Reported) 1 BOTTLE EVERY 4 DAYS, IF NO BOWEL MOVEMENT, NEEDED FOR CONSTIPATION Magnesium Hydroxide 400 Mg/5 Ml Oral.susp, 30 ML PO DAILY PRN for CONSTIPATION- 7TH LINE, (Reported) Menthol/Lanolin/Calamine/Znox 71 Gm Oint, TOP BID, (Reported) APPLY TO COCCYX Pantoprazole Sodium 20 Mg Tablet.dr, 20 MG PO DAILY, (Reported) Polyethylene Glycol 3350 17 Gm Powd.pack, 17 GM PO DAILY, (Reported) Terazosin HCl 1 Mg Capsule, 1 MG PO BID Prescribed by: ALYX SIN on 03/26/19 1633 Testosterone 75 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, 2 PUMP TD DAILY, (Reported) Ticagrelor 90 Mg Tablet, 90 MG PO BID Prescribed by: KAM BILLINGS on 07/12/19 1129 Trazodone HCl 50 Mg Tablet, 50 MG PO HS, (Reported) Patient Home Medication List Home Medication List Reviewed: Yes Review of Systems Review of Systems Constitutional: No fever Respiratory: See HPI; Denies Cough; Shortness of Air Cardiovascular: See HPI, Chest Pain, Edema; Denies Lightheadedness, Denies Palpitations, Denies Syncope Gastrointestinal: No Symptoms Reported; Denies Abdominal Pain, Denies Nausea Genitourinary: No Symptoms Reported Musculoskeletal: see HPI (CHRONIC RIGHT LEG SWELLING IS UNCHANGED) Psychiatric/Neurological: No Symptoms Reported Endocrine: No Symptoms Reported Hematologic/Lymphatic: See HPI Past [id number]-Bkdbif Hx Past Med/Social Hx: Reviewed and Corrections made Patient Social History Alcohol Use: Denies Use Recreational Drug Use: Yes (HX OF ABUSE "IN THE " ) Smoking Status: Former Smoker Type Used: Cigars Former Smoker, Quit: Oct 07, 1979 2nd Hand Smoke Exposure: No Recent Foreign Travel: No Contact w/Someone Who Travel: No Recent Infectious Disease Expo: No Recent Hopitalizations: No (Left AKA- [place]) Physical Abuse: No Sexual Abuse: No Mistreated: No Fear: No Seasonal Allergies Seasonal Allergies: No Past Medical History Surgeries: Yes (MULTIPLE CARDIAC CATHS--LAST ONE 07/11/19--STENTS X 2 IN MID RIGHT CORONARY ARTERY. PRIOR CATHS--NO INTERVENTION; MULTIPLE VASCULAR PROCEDURES ON LEFT LEG--FAILED, AND HAD LEFT GREAT TOE AMPUTATION AND LATER LEFT AKA; STENT IN RIGHT LEG; C-SPINE SURGERY AT [facility] 12/2018--DR. MILLIGAN. ) Amputation, Cardiac, Coronary Stent, Neurological, Orthopedic, Prostatectomy (?), Transurethral Resection (? ), Vascular Surgery Respiratory: Yes Pneumonia, Sleep Apnea Currently Using CPAP: No Currently Using BIPAP: No Cardiac: Yes (SEVERE PAD--MULTIPLE FAILED VASCULAR PROCEDURES ON LEFT LEG, WITH LEFT GREAT TOE AMPUTATION AND LATER LEFT AKA; STENT X 1 IN RIGHT LEG; CARDIAC CATHS-LAST ONE 07/11/19 FOR NSTEMI WITH STENTS X 2 IN MID RIGHT CORONARY ARTERY WITH SEVERE STENOSIS IS RIGHT PDA AND LAD--NOT AMENABLE TO INTERVENTION. PRIOR CATHS --NO INTERVENTION; CHRONIC RIGHT LEG EDEMA. ) Chronic Edema/Swelling, Coronary Artery Disease, Heart Attack, High Cholesterol, Hypertension, Peripheral Vascular Neurological: Yes Neuropathy Reproductive Disorders: No Sexually Transmitted Disease: No HIV/AIDS: No Genitourinary: Yes (PROSTATE SURGERY) Benign Prostatic Hyperpl, Prostate Problems, UTI-Chronic Gastrointestinal: Yes Chronic Constipation Musculoskeletal: Yes (LEFT GREAT TOE AMPUTATION, AND LATER LEFT AKA FOR SEVERE PERIPHERAL ARTERIAL DISEASE/CELLULITIS; C-SPINE SURGERY 12/[address] AT [facility] [address] MILLIGAN FOR CHRONIC NECK PAIN; GENERALIZED WEAKNESS. ) Amputee, Degenerate Disk Disease, Arthritis, Chronic Back Pain Endocrine: Yes Diabetes, Insulin dep HEENT: Yes (Cataract- right eye; POOR DENTITION) Cataract, Dysphagia Loss of Vision: Denies Hearing Impairment: Denies Cancer: No Did You Recieve Any Treatments: No Psychosocial: Yes Sleep Difficulties, Anxiety, Depression Integumentary: Yes (GANGRENE AND INFECTION IN LEFT FOOT; CHRONIC WOUNDS TO RIGHT LEG AND FOOT. ) Recent Skin Changes Blood Disorders: No Adverse Reaction/Blood Tranf: No Family Medical History Abdominal aortic aneurysm G8 SISTER Alcoholism G8 BROTHER G8 BROTHER G8 BROTHER Arthritis G8 BROTHER G8 BROTHER G8 BROTHER G8 BROTHER G8 BROTHER G8 SISTER G8 SISTER Cardiovascular disease G8 SISTER Diabetes mellitus G8 BROTHER G8 BROTHER G8 BROTHER G8 SISTER G8 SISTER Drug abuse G8 BROTHER G8 BROTHER FH: COPD (chronic obstructive pulmonary disease) 19 FATHER FH: bladder cancer 19 MOTHER FH: prostate cancer 19 FATHER Headache disorder G8 BROTHER G8 BROTHER G8 BROTHER G8 BROTHER G8 BROTHER G8 BROTHER G8 BROTHER G8 BROTHER G8 SISTER G8 SISTER G8 SISTER G8 SISTER Hypercholesterolemia G8 BROTHER G8 BROTHER G8 BROTHER G8 BROTHER G8 BROTHER G8 SISTER G8 SISTER G8 SISTER G8 SISTER Hypertension 19 FATHER G8 BROTHER G8 BROTHER G8 BROTHER G8 BROTHER G8 BROTHER G8 BROTHER G8 BROTHER G8 BROTHER G8 SISTER G8 SISTER G8 SISTER G8 SISTER Thyroid disease Tuberculosis 19 FATHER Physical Exam Vital Signs Vital Signs - First Documented 07/19/19 20:10 Temp 37.8 Pulse 94 Resp 20 B/P (MAP) 156/87 (110) Pulse Ox 96 O2 Delivery Room Air Capillary Refill : Less Than 3 Seconds Height, Weight, BMI Height: 5'9.00" Weight: 139lbs. 0.0oz. 63.593084po; 22.33 BMI Method:Stated General Appearance: No Apparent Distress, Other (FLAT AFFECT. LAYING ON LEFT SIDE) HEENT: Other (POOR DENTITION) Neck: Full Range of Motion, Normal Inspection, Non Tender, Supple; No JVD Respiratory: Chest Non Tender, Normal Breath Sounds, No Accessory Muscle Use, No Respiratory Distress Cardiovascular: Regular Rate, Rhythm, Systolic Murmur (?FAINT? ), Other (2-3+ EDEMA ON RIGHT LEG. ) Gastrointestinal: Non Tender, Soft Extremity: Non Tender, Pedal Edema (2-3+ EDEMA ON RIGHT; CHRONIC VENOUS STASIS CHANGES TO RIGHT LOWER LEG, AND SCARRING FROM PREVIOUS WOUNDS. NO OPEN WOUNDS OR SIGNS OF INFECTION), Other (LEFT AKA; ) Neurologic/Psychiatric: Alert, Oriented x3, Sensory Deficit (DECREASED SENSATION TO RIGHT FOOT. RIGHT FOOT IS PINK AND WARM, DIFFICULT TO PALPATE PULSES DUE TO EDEMA. ), Other (FALT AFFECT) Skin: Normal Color (PT IS BLACK ) Progress/Results/Core Measures Results/Orders My Orders Orders - EDDY MIRELES DO Cbc With Automated Diff (07/19/19 20:13) Magnesium (07/19/19 20:13) Chest 1 View, Ap/Pa Only (07/19/19 20:13) Ekg Tracing (07/19/19 20:13) Cardiac Profile 1 (07/19/19 20:13) Comprehensive Metabolic Panel (07/19/19 20:13) Myoglobin Serum (07/19/19 20:13) Protime With Inr (07/19/19 20:13) Partial Thromboplastin Time (07/19/19 20:13) O2 (07/19/19 20:13) Monitor-Rhythm Ecg Trace Only (07/19/19 20:13) Ed Iv/Invasive Line Start (07/19/19 20:13) Creatine Kinase (07/19/19 20:13) Creatine Kinase Mb (07/19/19 20:13) Lipase (07/19/19 20:13) Amylase (07/19/19 20:13) BNP (07/19/19 20:13) Nitroglycerin Ointment (Nitrobid Ointme (07/19/19 20:13) Vital Signs/I&O 07/19/19 07/19/19 20:10 20:10 Temp 37.8 Pulse 94 Resp 20 B/P (MAP) 156/87 (110) Pulse Ox 96 O2 Delivery Room Air Blood Pressure Mean: 112 FSBG Bedside Testing Finger Stick Blood Glucose: 162 Progress Progress Note : Progress Note GIVEN NTG WITHOUT RELIEF OF PAIN, NITROPASTE APPLIED FOR CP WELL HTN--BP DOWN TO 120'S/70'S. 2053--STATES HE HAS BEEN HAVING CHEST PRESSURE ALL ACROSS HIS CHEST THE WHOLE TIME ( DID NOT MENTION THIS ON ARRIVAL ), AND IS GETTING WORSE. PT GIVEN MULTIPLE DOSES OF MORPHINE. PT STATES MINIMAL RELIEF, BUT PT SLEPT FOR REMAINDER OF ER STAY. NO DETERIORATION IN PT'S CONDITION DURING ER STAY. Initial ECG Impression Date: Jul 19, 2019 Initial ECG Impression Time: 20:14 Initial ECG Rate: 99 Initial ECG Rhythm: Normal Sinus (PAC'S) Initial ECG Comparisson: Unchanged Diagnostic Imaging Comments CXR--NO ACUTE PROCESS, BIBASILAR ATELECTASIS, PER RADIOLOGIST REPORT AT 2038 Reviewed: Reviewed by Me Departure Communication (Admissions) 2012--SPOKE WITH DR. CHILDRESS. ORDERS NOTED. ADVISES TO ADMIT TO MEDICINE/HOSPITALIST AND HE WILL CONSULT. 2014--SPOKE WITH DR. BILLINGS, HOSPITALIST, ACCEPTS PT FOR ADMIT. Impression Primary Impression: Non-STEMI (non-ST elevated myocardial infarction) Additional Impressions: IDDM (insulin dependent diabetes mellitus) Status post coronary artery stent placement S/P AKA (above knee amputation) unilateral HTN (hypertension) Disposition: 09 ADMITTED INPATIENT Condition: Improved Admissions Decision to Admit Reason: Admit from ER (General) Decision to Admit/Date: Jul 19, 2019 Time/Decision to Admit Time: 20:15 Departure-Patient Inst. Referrals: TERRI TAVAREZ DO (PCP) Primary Care Physician EDDY MIRELES DO Jul 20, 2019 06:57
[2019-07-20 07:09] LABS: ALANINE AMINOTRANSFERASE 19 U/L (0-55); ALBUMIN 3.7 GM/DL (3.2-4.5); ALKALINE PHOSPHATASE 67 U/L (40-136); BILIRUBIN,TOTAL 0.5 MG/DL (0.1-1.0); BUN/CREATININE RATIO 23; CALCIUM 10.2 MG/DL (8.5-10.1); CARBON DIOXIDE 23 MMOL/L (21-32); CHLORIDE 104 MMOL/L (98-107); CHOLESTEROL 159 MG/DL (< 200); CREATININE SERUM 1.01 MG/DL (0.60-1.30); GFR ESTIMATED > 60; GLUCOSE 165 MG/DL (70-105); HDL CHOLESTEROL 61 MG/DL (40-60); POTASSIUM 4.2 MMOL/L (3.6-5.0); SODIUM 138 MMOL/L (135-145); TOTAL PROTEIN 7.1 GM/DL (6.4-8.2); TRIGLYCERIDES 97 MG/DL (<150); VLDL CHOLESTEROL 19 MG/DL (5-40)
--- NOTE | 2019-07-20 07:22 | Diagnostic Imaging Report ---
INDICATION: Myocardial infarction COMPARISON: 07/19/2019 FINDINGS: Single view of the chest demonstrate stable cardiac enlargement without overt pulmonary edema. There is unchanged basilar atelectasis. There is no pneumothorax or a large effusion. The osseous structures are stable. IMPRESSION: Unchanged bibasilar atelectasis. Dictated by: Dictated on workstation # [id number]
--- NOTE | 2019-07-20 07:39 | History & Physical ---
History of Present Illness History of Present Illness Reason for visit/HPI Patient is a resident of the [facility]. Patient had chest pain. Patient states his chest pain was worse than the last time he had an heart attack on 02/13 and had 2 stents put in on the right. Patient's troponin is elevated. Patient emergency room had pain on the left shoulder and arm.. Patient history of diabetes and nwsaj-xwv-tmpw amputation on the left. Patient has history of peripheral artery disease. Coronary artery disease. Diabetes. Elevated troponin. Date of Admission Jul 19, 2019 at 20:15 Time Seen by a Provider: 07:34 I consulted on this patient on 07/20/19 07:34 Attending Physician Los Tavarez DO Admitting Physician Los Tavarez DO Consult Allergies and Home Medications Allergies Coded Allergies: Sulfa (Sulfonamide Antibiotics) (Verified Allergy, Severe, HIVES, 07/19/19) temazepam (Verified Allergy, Severe, 07/19/19) MENTAL CONFUSION hydromorphone (Verified Allergy, Unknown, 07/19/19) pravastatin (Verified Adverse Reaction, Severe, RASH, 07/19/19) clopidogrel (Verified Adverse Reaction, Unknown, 07/19/19) Home Medications Acetaminophen 325 Mg Capsule, 650 MG PO Q4H PRN for PAIN-MILD, (Reported) Alprazolam 0.25 Mg Tablet, 0.25 MG PO HS, (Reported) Amlodipine Besylate 5 Mg Tablet, 5 MG PO DAILY, (Reported) Aspirin 81 Mg Tablet.dr, 81 MG PO DAILY Prescribed by: KAM BILLINGS on 07/12/191128 Atorvastatin Calcium 10 Mg Tablet, 10 MG PO HS, (Reported) Baclofen 10 Mg Tablet, 10 MG PO Q8H PRN for MUSCLE SPASMS, (Reported) Bisacodyl 10 Mg Supp.rect, 10 MG RC PRN, (Reported) Carvedilol 25 Mg Tablet, 25 MG PO BID, (Reported) Docusate Sodium 100 Mg Capsule, 300 MG PO HS, (Reported) TAKES 3 (100MG) CAPSULES Doxycycline Hyclate 100 Mg Capsule, 100 MG PO BID Prescribed by: KAM BILLINGS on 07/12/191128 Exenatide Microspheres 2 Mg/0.65 Ml Pen.injctr, 2 MG SQ WEEK, (Reported) Finasteride 5 Mg Tablet, 5 MG PO HS, (Reported) Finasteride 5 Mg Tablet, 5 MG PO HS, (Reported) Gabapentin 300 Mg Capsule, 300 MG PO DAILY, (Reported) Gabapentin 600 Mg Tablet, 600 MG PO BID, (Reported) Glipizide 10 Mg Tablet, 20 MG PO BID, (Reported) TAKES 2 (10MG) TABLETS Hydralazine HCl 100 Mg Tablet, 100 MG PO TID, (Reported) Hydrocodone/Acetaminophen 1 Each Tablet, 1 TAB PO HS, (Reported) Hydrocodone/Acetaminophen 1 Each Tablet, 7.5-325 MG PO TID PRN for PAIN-SEVERE, (Reported) Insulin Glargine,Hum.rec.anlog 300 Unit/1 Ml Insuln.pen, 6 UNIT SQ DAILY, (Reported) Insulin Lispro 100 Unit/1 Ml Vial, SQ TIDAC, (Reported) 151-199 give 0 units 200-249 give 2 units 250-299 give 3 units 300-349 give 4 units 350-399 give 5 units 400 and above - contact PCP Isosorbide Mononitrate 60 Mg Tab, 60 MG PO DAILY@0630 Prescribed by: ALYX SIN on 03/26/19 1633 Mag Hydrox/Al Hydrox/Simeth Unknown Strength Oral.susp, Unknown Dose PO Q4H PRN for INDIGESTION, (Reported) Magnesium Citrate 296 Ml Solution, 296 ML PO EVERY 4 DAYS PRN for CONSTIPATION- 9TH LINE, (Reported) 1 BOTTLE EVERY 4 DAYS, IF NO BOWEL MOVEMENT, NEEDED FOR CONSTIPATION Magnesium Hydroxide 400 Mg/5 Ml Oral.susp, 30 ML PO DAILY PRN for CONSTIPATION- 7TH LINE, (Reported) Menthol/Lanolin/Calamine/Znox 71 Gm Oint, TOP BID, (Reported) APPLY TO COCCYX Pantoprazole Sodium 20 Mg Tablet.dr, 20 MG PO DAILY, (Reported) Polyethylene Glycol 3350 17 Gm Powd.pack, 17 GM PO DAILY, (Reported) Terazosin HCl 1 Mg Capsule, 1 MG PO BID Prescribed by: ALYX SIN on 03/26/19 1633 Testosterone 75 Gm Gel.fire suppression captain, 2 PUMP TD DAILY, (Reported) Ticagrelor 90 Mg Tablet, 90 MG PO BID Prescribed by: KAM BILLINGS on 07/12/19 1129 Trazodone HCl 50 Mg Tablet, 50 MG PO HS, (Reported) Patient Home Medication List Home Medication List Reviewed: No Past Csytmyz-Rjbrew-Gxzlnd Hx Past Med/Social Hx: Reviewed and Corrections made Patient Social History Marrital Status: Employed/Student: retired Alcohol Use: Denies Use Recreational Drug Use: Yes (HX OF ABUSE "IN THE " ) Smoking Status: Former Smoker Former Smoker, Quit: Oct 07, 1979 Type Used: Cigars 2nd Hand Smoke Exposure: No Recent Foreign Travel: No Contact w/other who traveled: No Recent Hopitalizations: No (Left AKA- [place]) Recent Infectious Disease Expo: No Seasonal Allergies Seasonal Allergies: No Past Medical History Surgeries: Amputation, Cardiac, Orthopedic, Prostatectomy, Vascular Surgery Currently Using CPAP: No Currently Using BIPAP: No Cardiac: Chronic Edema/Swelling, Coronary Artery Disease, High Cholesterol, Hypertension, Peripheral Vascular Neurological: Neuropathy Reproductive: No Sexually Transmitted Disease: No HIV/AIDS: No Genitourinary: Benign Prostatic Hyperpl, Prostate Problems Gastrointestinal: Chronic Constipation Musculoskeletal: Amputee, Arthritis, Chronic Back Pain Endocrine: Diabetes, Insulin dep HEENT: Cataract Loss of Vision: Denies Hearing Impairment: Denies Did You Recieve Any Treatments: No Psychosocial: Sleep Difficulties, Anxiety, Depression Skin/Integumentary: Recent Skin Changes History of Blood Disorders: No Adverse Reaction to Blood Hernandez: No Family History Abdominal aortic aneurysm G8 SISTER Alcoholism G8 BROTHER G8 BROTHER G8 BROTHER Arthritis G8 BROTHER G8 BROTHER G8 BROTHER G8 BROTHER G8 BROTHER G8 SISTER G8 SISTER Cardiovascular disease G8 SISTER Diabetes mellitus G8 BROTHER G8 BROTHER G8 BROTHER G8 SISTER G8 SISTER Drug abuse G8 BROTHER G8 BROTHER FH: COPD (chronic obstructive pulmonary disease) 19 FATHER FH: bladder cancer 19 MOTHER FH: prostate cancer 19 FATHER Headache disorder G8 BROTHER G8 BROTHER G8 BROTHER G8 BROTHER G8 BROTHER G8 BROTHER G8 BROTHER G8 BROTHER G8 SISTER G8 SISTER G8 SISTER G8 SISTER Hypercholesterolemia G8 BROTHER G8 BROTHER G8 BROTHER G8 BROTHER G8 BROTHER G8 SISTER G8 SISTER G8 SISTER G8 SISTER Hypertension 19 FATHER G8 BROTHER G8 BROTHER G8 BROTHER G8 BROTHER G8 BROTHER G8 BROTHER G8 BROTHER G8 BROTHER G8 SISTER G8 SISTER G8 SISTER G8 SISTER Thyroid disease Tuberculosis 19 FATHER Review of Systems Constitutional: weakness EENTM: no symptoms reported Respiratory: no symptoms reported Cardiovascular: chest pain, other (Left shoulder and left armpit pain) Gastrointestinal: no symptoms reported, other (Decreased appetite last few days) Genitourinary: no symptoms reported Physical Exam Vital Signs Vital Signs - First Documented 07/19/19 20:10 Temp 37.8 Pulse 94 Resp 20 B/P (MAP) 156/87 (110) Pulse Ox 96 O2 Delivery Room Air Capillary Refill : Less Than 3 Seconds Height, Weight, BMI Height: 5'9.00" Weight: 139lbs. 0.0oz. 63.068827vy; 22.33 BMI Method:Stated General Appearance: No Apparent Distress Eyes: Bilateral Eye Normal Inspection HEENT: Normal ENT Inspection Neck: Full Range of Motion, Normal Inspection, Non Tender Respiratory: Lungs Clear, No Accessory Muscle Use, No Respiratory Distress Cardiovascular: Regular Rate, Rhythm, No Murmur Gastrointestinal: Non Tender, Soft Assessment/Plan Assessment and Plan Elevated troponin. Chest pain. Coronary artery disease. Peripheral artery disease. Diabetes. Amputated clpwo-elr-arpa left leg . Hyperlipidemia. Non-STEMI Admission Diagnosis Admission Status: Inpatient Order (span 2 midnights) Reason for Inpatient Admission: Non-STEMI Elevated troponin. Diabetes. Coronary artery disease. Chest pain. Elevated troponin. Peripheral artery disease. Amputated left leg [id number] Clinical Quality Measures AMI/AHF: ASA po Prior to arrival: Yes (GIVEN BY EMS) DVT/VTE Risk/Contraindication: Risk Factor Score Per Nursin RFS Level Per Nursing on Admit: 4+=Very High LOS TAVAREZ DO Jul 20, 2019 07:39
[2019-07-20] MEDS: CARVEDILOL 12.5 MG (COREG) TABLET PO SCH ×2 (08:35→21:00)
[2019-07-20] MEDS: meTOprolol SUCCINATE 100 MG (TOPROL XL) TAB PO SCH (08:37)
[2019-07-20] MEDS: ASPIRIN E.C. 81 MG (ECOTRIN) TAB PO SCH (08:37)
[2019-07-20] MEDS: ENOXAPARIN 80 MG/0.8 ML (LOVENOX) SYR SC SCH ×2 (08:38→21:00)
[2019-07-20] MEDS: amLODIPine 5 MG (NORVASC) TAB PO SCH (08:38)
[2019-07-20] MEDS ORDERED: NON-FORMULARY MEDICATION 1 EA EA (Amlodipine Besylate 5 MG) PO SCH (09:00)
[2019-07-20] MEDS ORDERED: NON-FORMULARY MEDICATION 1 EA EA (Carvedilol 25 MG) PO SCH (09:00)
[2019-07-20] MEDS ORDERED: TICA90TA PO (09:03)
[2019-07-20] MEDS ORDERED: ALPR0.5T7 PO (09:03)
[2019-07-20] MEDS ORDERED: TERA1CAP3 PO (09:03)
[2019-07-20] MEDS ORDERED: VITS42.53 TP (09:03)
[2019-07-20] MEDS ORDERED: TOLN150S2 TP (09:03)
[2019-07-20] MEDS ORDERED: ACET325T49 PO (09:03)
[2019-07-20] MEDS ORDERED: GLIP5TAB13 PO (09:03)
[2019-07-20] MEDS ORDERED: ASPI-983 PO (09:03)
[2019-07-20] MEDS ORDERED: ISM60TCR PO (09:03)
--- NOTE | 2019-07-20 09:03 | NUR ---
UPDATED MED REC WITH PHYSICIAN'S ORDERS FROM [facility]
--- NOTE | 2019-07-20 09:15 | NUR ---
PRIOR TO A.M. MEDICATIONS PULSE WAS 89 AND B/P WAS 187/99
[2019-07-20] MEDS: ISOSORBIDE MONONITRATE 60 MG (IMDUR) TAB PO SCH (09:41)
[2019-07-20] MEDS: ONDANSETRON 4 MG/2 ML (SDV) Z0FRAN IVP PRN (09:45)
--- NOTE | 2019-07-20 10:04 | Consultation-Cardiology ---
HPI-Cardiology Cardiology Consultation: Date of Consultation 07/20/19 Time Seen by a Provider: 09:50 Date of Admission 07-20-19 Attending Physician Los Larose DO Admitting Physician Los Larose DO Consulting Physician JOE JORDAN HPI: Chief Complaint: NSTEMI Mr. Muñiz is a 73 year old male admitted to 431 from the ED. He currently resides at [facility]. His spouse is at the bedside. He reports approx 7 p.m. last night he began to have chest pain, which he describes as a band of pressure across his chest with a feeling of bubbling in his chest. He reports sharp stabbing pain under his left arm which was constant. He reports no aggravating or alleviating factors. He states after several hours he requested to be brought to the ED. He reports he received morphine in the ED and the discomfort has resolved. He reports after the pain had persisted for over an hour he did began to feel nauseated. He states he has been on abx treatment since last week for pneumonia. No c/o dyspnea, syncope, near syncope. He has chronic LLE swelling which he feels is better than usual. He denies any fever, chills. He denies any n/v/d. Review of Systems-Cardiology Review of Systems Constitutional: No chills, No fever; malaise Eyes: No vision change Ears/Nose/Throat: No epistaxis, No recent hearing loss Respiratory: As described under HPI Cardiovascular: As described under HPI Gastrointestinal: No constipation, No diarrhea; nausea; No vomiting Genitourinary: No dysuria, No hematuria Skin: No rash on exposed areas, No ulcerations on exposed areas Psychiatric/Neurological: No anxiety, No depression, No seizure, No focal weakness, No syncope Hematologic: No bleeding abnormalities EDS-Jckwex-Bybusw Hx Patient Social History Marrital Status: Employed/Student: retired Alcohol Use: Denies Use Recreational Drug Use: Yes (HX OF ABUSE "IN THE " ) Smoking Status: Former Smoker Former smoker/When Quit: Dec 29, 1979 Type Used: Cigars 2nd Hand Smoke Exposure: No Recent Foreign Travel: No Recent Infectious Disease Expo: No Hospitalization with Isolation: Denies Past Medical History PMH As described under Assessment. Family Medical History Family Medical History: Does not report fam h/o early CAD or SCD Family History: Abdominal aortic aneurysm G8 SISTER Alcoholism G8 BROTHER G8 BROTHER G8 BROTHER Arthritis G8 BROTHER G8 BROTHER G8 BROTHER G8 BROTHER G8 BROTHER G8 SISTER G8 SISTER Cardiovascular disease G8 SISTER Diabetes mellitus G8 BROTHER G8 BROTHER G8 BROTHER G8 SISTER G8 SISTER Drug abuse G8 BROTHER G8 BROTHER FH: COPD (chronic obstructive pulmonary disease) 19 FATHER FH: bladder cancer 19 MOTHER FH: prostate cancer 19 FATHER Headache disorder G8 BROTHER G8 BROTHER G8 BROTHER G8 BROTHER G8 BROTHER G8 BROTHER G8 BROTHER G8 BROTHER G8 SISTER G8 SISTER G8 SISTER G8 SISTER Hypercholesterolemia G8 BROTHER G8 BROTHER G8 BROTHER G8 BROTHER G8 BROTHER G8 SISTER G8 SISTER G8 SISTER G8 SISTER Hypertension 19 FATHER G8 BROTHER G8 BROTHER G8 BROTHER G8 BROTHER G8 BROTHER G8 BROTHER G8 BROTHER G8 BROTHER G8 SISTER G8 SISTER G8 SISTER G8 SISTER Thyroid disease Tuberculosis 19 FATHER Allergies and Home Medications Allergies Coded Allergies: Sulfa (Sulfonamide Antibiotics) (Verified Allergy, Severe, HIVES, 07/19/19) temazepam (Verified Allergy, Severe, 07/19/19) MENTAL CONFUSION hydromorphone (Verified Allergy, Unknown, 07/19/19) pravastatin (Verified Adverse Reaction, Severe, RASH, 07/19/19) clopidogrel (Verified Adverse Reaction, Unknown, 07/19/19) Home Medications Acetaminophen 325 Mg Tablet, 650 MG PO Q4H PRN for PAIN-MILD, (Reported) TAKES 2 (325MG) TABLETS Alprazolam 0.25 Mg Tablet, 0.25 MG PO HS, (Reported) Alprazolam 0.5 Mg Tablet, 0.5 MG PO BID PRN for ANXIETY, (Reported) Amlodipine Besylate 5 Mg Tablet, 5 MG PO DAILY, (Reported) NOFITY MED IF SBP<90 OR >200 OR PULSE <50 Aspirin 81 Mg Tablet.dr, 81 MG PO DAILY, (Reported) Atorvastatin Calcium 10 Mg Tablet, 10 MG PO HS, (Reported) Baclofen 10 Mg Tablet, 10 MG PO Q8H PRN for MUSCLE SPASMS, (Reported) Bisacodyl 10 Mg Supp.rect, 10 MG RC UD PRN for CONSTIPATION-4TH LINE, (Reported) Carvedilol 25 Mg Tablet, 25 MG PO BID, (Reported) NOTIFY MD IF SBP<90 OR >200 OR PULSE <50 Docusate Sodium 100 Mg Capsule, 300 MG PO HS, (Reported) TAKES 3 (100MG) CAPSULES Exenatide Microspheres 2 Mg/0.65 Ml Pen.injctr, 2 MG SQ WEEK, (Reported) Finasteride 5 Mg Tablet, 5 MG PO HS, (Reported) Gabapentin 300 Mg Capsule, 300 MG PO 1800, (Reported) Gabapentin 600 Mg Tablet, 600 MG PO BID, (Reported) Glipizide 5 Mg Tablet, 5 MG PO DAILY, (Reported) Hydralazine HCl 100 Mg Tablet, 100 MG PO TID, (Reported) Hydrocodone/Acetaminophen 1 Each Tablet, 1 TAB PO HS, (Reported) Hydrocodone/Acetaminophen 1 Each Tablet, 7.5-325 MG PO TID PRN for PAIN- MODERATE, (Reported) Insulin Glargine,Hum.rec.anlog 300 Unit/1 Ml Insuln.pen, 6 UNIT SQ DAILY, (Reported) Isosorbide Mononitrate 60 Mg Tab, 60 MG PO DAILY, (Reported) Mag Hydrox/Al Hydrox/Simeth Unknown Strength Oral.susp, 30 ML PO Q4H PRN for INDIGESTION, (Reported) Magnesium Citrate 296 Ml Solution, 296 ML PO EVERY 4 DAYS PRN for CONSTIPATION-9 TH LINE, (Reported) 1 BOTTLE EVERY 4 DAYS, IF NO BOWEL MOVEMENT, NEEDED FOR CONSTIPATION Magnesium Hydroxide 400 Mg/5 Ml Oral.susp, 30 ML PO DAILY PRN for CONSTIPATION- 7TH LINE, (Reported) Menthol/Lanolin/Calamine/Znox 71 Gm Oint, TOP TID, (Reported) APPLY TO COCCYX Pantoprazole Sodium 20 Mg Tablet.dr, 20 MG PO DAILY, (Reported) Polyethylene Glycol 3350 17 Gm Powd.pack, 17 GM PO DAILY, (Reported) Terazosin HCl 1 Mg Capsule, 1 MG PO BID, (Reported) Testosterone 75 Gm Gel..director targeted marketing, 2 PUMP TD DAILY, (Reported) Ticagrelor 90 Mg Tablet, 90 MG PO BID, (Reported) Tolnaftate 150 Gm [place], TP Q48H, (Reported) APPLY TO LEFT FOOT AND TOES Trazodone HCl 50 Mg Tablet, 50 MG PO HS, (Reported) Vits A and D/White Pet/Lanolin 42.5 Gm Oint...g., TP Q48H, (Reported) APPLY TO LEFT LOWER EXTREMITY Patient Home Medication List Home Medication List Reviewed: Yes Physical Exam-Cardiology Physical Exam Vital Signs/I&O 07/20/19 07/20/19 07/20/19 07/21/19 20:00 20:00 21:00 00:00 Temp 36.7 37.2 Pulse 72 79 Resp 18 18 B/P (MAP) 163/70 (101) 165/70 (101) Pulse Ox 95 96 O2 Delivery Room Air Room Air Room Air Room Air 07/21/19 07/21/19 07/21/19 07/21/19 00:00 01:00 01:00 04:00 Temp 37.0 Pulse 87 87 92 Resp 17 B/P (MAP) 188/94 (125) Pulse Ox 96 99 O2 Delivery Room Air Room Air 07/21/19 04:00 O2 Delivery Room Air 07/21/19 00:00 Intake Total 790 ml Output Total 900 ml Balance -110 ml Capillary Refill : Greater Than 3 SecondsLess Than 3 Seconds Constitutional: AAO x 3, well-developed, well-nourished HEENT: PERRL, hearing is well preserved, oral hygience is good Neck: No carotid bruit; carotid pulses are 2 + bilaterally Respiratory: No accessory muscle use, No respiratory distress; chest expansion is symmetric, chest is bilaterally symmetric, lungs clear to auscultation Cardiovascular: regular rate-rhythm; No JVD; S1 and S2 Gastrointestinal: No tender; soft, round, audible bowel sounds Extremities: other (RLE pitting/non-pitting edema; L AKA) Neurologic/Psychiatric: grossly intact Skin: No rash on exposed areas, No ulcerations on exposed areas Data Review Labs Laboratory Tests 07/20/19 11:33: Glucometer 157H 07/20/19 12:06: Glucometer 224H 07/21/19 03:50: White Blood Count 5.3, Red Blood Count 3.84L, Hemoglobin 10.4L, Hematocrit 32L, Mean Corpuscular Volume 83, Mean Corpuscular Hemoglobin 27, Mean Corpuscular Hemoglobin Concent 33, Red Cell Distribution Width 13.9, Platelet Count 269, Mean Platelet Volume 10.5H, Prothrombin Time 14.6, INR Comment 1.1, Activated Partial Thromboplast Time 40H, Sodium Level 133L, Potassium Level 3.9, Chloride Level 102, Carbon Dioxide Level 20L, Anion Gap 11, Blood Urea Nitrogen 15, Creatinine 0.90, Estimat Glomerular Filtration Rate > 60, BUN/Creatinine Ratio 17, Glucose Level 142H, Calcium Level 9.6 Radiology NAME: ARLIN MUÑIZ [facility] REC#: [id number] PT STATUS: ADM IN : 1945 PHYSICIAN: HAWA BILLINGS MD ADMIT DATE: 07/19/19 Signed Date of Exam: 07/20/19 CHEST 1 VIEW, AP/PA ONLY INDICATION: Myocardial infarction COMPARISON: 07/19/2019 FINDINGS: Single view of the chest demonstrate stable cardiac enlargement without overt pulmonary edema. There is unchanged basilar atelectasis. There is no pneumothorax or a large effusion. The osseous structures are stable. IMPRESSION: Unchanged bibasilar atelectasis. Dictated by: Dictated on workstation # [id number] Dict: 07/20/19 0700 Trans: 07/20/19905 Interpreted by: HILTON HITCHCOCK Electronically signed by: HILTON HITCHCOCK 07/20/19905 ECG Impression ECG Initial ECG Rhythm: Normal Sinus A/P-Cardiology Assessment/Admission Diagnosis Chest pain Mildly elevated troponin Coronary artery disease, cardiac catheterization was carried out on July 12, 2019 by : Severe long segment stenosis of the midright coronary artery successful deployment of 2 overlapping resolute stent proximally integrity 2.5 x 14 mm in overlapping with on next 2.0 x 30 mm expanded proximally to 2.75 and distally 2.2 mm with excellent results. The distal right PDA has severe stenosis is a hairline artery, not amendable to intervention. Severe stenosis at the distal LAD at the apex area, very small artery not amendable to intervention 50-60% stenosis at the mid circumflex artery. Normal left ventricular size with mildly reduced left ventricular systolic function estimated ejection fraction 50 % Echo of 03/23/19: LVEF 50-55%, mild MR, mild to mod LA enlargement, RVSP 37 mmHg Peripheral arterial disease, history of AKA and PCI of the right leg by Dr. Bird, peripheral angiogram done by Dr. Bird in January 2017 had left SFA and popliteal artery angioplasty with drug-eluting balloon and Nitinol stenting, mild iliac disease. Occluded mid stent with diffuse disease Hypertension, labile blood pressure Hyperlipidemia Diabetes mellitus Discussion and Recomendations Elevated troponin- advise cardiac cath. We have discussed the procedure, risks, benefits and potential complications of cardiac cath with possible ad hoc coronary intervention. He verbalizes understanding and provides informed consent. Continue home medications Monitor lab Further recs will based on his hospital course We would like to thank medical services for this consult Clinical Quality Measures AMI/AHF: ASA po Prior to arrival: Yes (GIVEN BY EMS) DVT/VTE Risk/Contraindication: Risk Factor Score Per Nursin RFS Level Per Nursing on Admit: 4+=Very High Contraindications-Pharm: Other *list below* JOE FRAZIER Jul 20, 2019 10:04
[2019-07-20] MEDS: NS IV 1000 ML 1,000 ML IV SCH (10:56)
[2019-07-20] MEDS ORDERED: DEXTROSE 50% 50 ML (IMS) SYR IV NR (11:45)
[2019-07-20] MEDS ORDERED: DEXTROSE 50% 50 ML (IMS) SYR IV PRN (11:45)
--- NOTE | 2019-07-20 13:09 | NUR ---
Patient to room 510-1 cardiac (stepdown) at this time, via bed. Bedside report given to SHASHI Leonard, who will assume care of this patient at this time.
--- NOTE | 2019-07-20 14:40 | Consultation-Cardiology ---
HPI-Cardiology Cardiology Consultation: Date of Consultation 07/20/19 Time Seen by a Provider: 09:50 Date of Admission Attending Physician Los Larose DO Admitting Physician Los Larose DO Consulting Physician ANTONIETA CHILDRESS MD, MA, FACP, FACC, FSCAI, CCDS HPI: Chief Complaint: Reason for consultation: Elevated troponin HPI Mr. Muñiz is a 73 year old male admitted to [facility] from the ED. He currently resides at [facility]. His spouse is at the bedside. He reports approx 7 p.m. last night he began to have chest pain, which he describes as a band of pressure across his chest with a feeling of bubbling in his chest. He reports sharp stabbing pain under his left arm which was constant. He reports no aggravating or alleviating factors. He states after several hours he requested to be brought to the ED. He reports he received morphine in the ED and the discomfort has resolved. He reports after the pain had persisted for over an hour he did began to feel nauseated. He states he has been on abx treatment since last week for pneumonia. No c/o dyspnea, syncope, near syncope. He has chronic LLE swelling which he feels is better than usual. He denies any fever, chills. He denies any n/v/d. Review of Systems-Cardiology Review of Systems Constitutional: No chills, No fever; malaise Eyes: No vision change Ears/Nose/Throat: No epistaxis, No recent hearing loss Respiratory: As described under HPI Cardiovascular: As described under HPI Gastrointestinal: No constipation, No diarrhea; nausea; No vomiting Genitourinary: No dysuria, No hematuria Skin: No rash on exposed areas, No ulcerations on exposed areas Psychiatric/Neurological: No anxiety, No depression, No seizure, No focal weakness, No syncope Hematologic: No bleeding abnormalities HTH-Ntqnjb-Cixmde Hx Patient Social History Marrital Status: Employed/Student: retired Alcohol Use: Denies Use Recreational Drug Use: Yes (HX OF ABUSE "IN THE " ) Smoking Status: Former Smoker Former smoker/When Quit: Dec 29, 1979 Type Used: Cigars 2nd Hand Smoke Exposure: No Recent Foreign Travel: No Recent Infectious Disease Expo: No Hospitalization with Isolation: Denies Past Medical History PMH As described under Assessment. Family Medical History Family Medical History: Does not report fam h/o early CAD or SCD Family History: Abdominal aortic aneurysm G8 SISTER Alcoholism G8 BROTHER G8 BROTHER G8 BROTHER Arthritis G8 BROTHER G8 BROTHER G8 BROTHER G8 BROTHER G8 BROTHER G8 SISTER G8 SISTER Cardiovascular disease G8 SISTER Diabetes mellitus G8 BROTHER G8 BROTHER G8 BROTHER G8 SISTER G8 SISTER Drug abuse G8 BROTHER G8 BROTHER FH: COPD (chronic obstructive pulmonary disease) 19 FATHER FH: bladder cancer 19 MOTHER FH: prostate cancer 19 FATHER Headache disorder G8 BROTHER G8 BROTHER G8 BROTHER G8 BROTHER G8 BROTHER G8 BROTHER G8 BROTHER G8 BROTHER G8 SISTER G8 SISTER G8 SISTER G8 SISTER Hypercholesterolemia G8 BROTHER G8 BROTHER G8 BROTHER G8 BROTHER G8 BROTHER G8 SISTER G8 SISTER G8 SISTER G8 SISTER Hypertension 19 FATHER G8 BROTHER G8 BROTHER G8 BROTHER G8 BROTHER G8 BROTHER G8 BROTHER G8 BROTHER G8 BROTHER G8 SISTER G8 SISTER G8 SISTER G8 SISTER Thyroid disease Tuberculosis 19 FATHER Allergies and Home Medications Allergies Coded Allergies: Sulfa (Sulfonamide Antibiotics) (Verified Allergy, Severe, HIVES, 07/19/19) temazepam (Verified Allergy, Severe, 07/19/19) MENTAL CONFUSION hydromorphone (Verified Allergy, Unknown, 07/19/19) pravastatin (Verified Adverse Reaction, Severe, RASH, 07/19/19) clopidogrel (Verified Adverse Reaction, Unknown, 07/19/19) Home Medications Acetaminophen 325 Mg Tablet, 650 MG PO Q4H PRN for PAIN-MILD, (Reported) TAKES 2 (325MG) TABLETS Alprazolam 0.25 Mg Tablet, 0.25 MG PO HS, (Reported) Alprazolam 0.5 Mg Tablet, 0.5 MG PO BID PRN for ANXIETY, (Reported) Amlodipine Besylate 5 Mg Tablet, 5 MG PO DAILY, (Reported) NOFITY MED IF SBP<90 OR >200 OR PULSE <50 Aspirin 81 Mg Tablet.dr, 81 MG PO DAILY, (Reported) Atorvastatin Calcium 10 Mg Tablet, 10 MG PO HS, (Reported) Baclofen 10 Mg Tablet, 10 MG PO Q8H PRN for MUSCLE SPASMS, (Reported) Bisacodyl 10 Mg Supp.rect, 10 MG RC UD PRN for CONSTIPATION-4TH LINE, (Reported) Carvedilol 25 Mg Tablet, 25 MG PO BID, (Reported) NOTIFY MD IF SBP<90 OR >200 OR PULSE <50 Docusate Sodium 100 Mg Capsule, 300 MG PO HS, (Reported) TAKES 3 (100MG) CAPSULES Exenatide Microspheres 2 Mg/0.65 Ml Pen.injctr, 2 MG SQ WEEK, (Reported) Finasteride 5 Mg Tablet, 5 MG PO HS, (Reported) Gabapentin 300 Mg Capsule, 300 MG PO 1800, (Reported) Gabapentin 600 Mg Tablet, 600 MG PO BID, (Reported) Glipizide 5 Mg Tablet, 5 MG PO DAILY, (Reported) Hydralazine HCl 100 Mg Tablet, 100 MG PO TID, (Reported) Hydrocodone/Acetaminophen 1 Each Tablet, 1 TAB PO HS, (Reported) Hydrocodone/Acetaminophen 1 Each Tablet, 7.5-325 MG PO TID PRN for PAIN- MODERATE, (Reported) Insulin Glargine,Hum.rec.anlog 300 Unit/1 Ml Insuln.pen, 6 UNIT SQ DAILY, (Reported) Isosorbide Mononitrate 60 Mg Tab, 60 MG PO DAILY, (Reported) Mag Hydrox/Al Hydrox/Simeth Unknown Strength Oral.susp, 30 ML PO Q4H PRN for INDIGESTION, (Reported) Magnesium Citrate 296 Ml Solution, 296 ML PO EVERY 4 DAYS PRN for CONSTIPATION- 9TH LINE, (Reported) 1 BOTTLE EVERY 4 DAYS, IF NO BOWEL MOVEMENT, NEEDED FOR CONSTIPATION Magnesium Hydroxide 400 Mg/5 Ml Oral.susp, 30 ML PO DAILY PRN for CONSTIPATION- 7TH LINE, (Reported) Menthol/Lanolin/Calamine/Znox 71 Gm Oint, TOP TID, (Reported) APPLY TO COCCYX Pantoprazole Sodium 20 Mg Tablet.dr, 20 MG PO DAILY, (Reported) Polyethylene Glycol 3350 17 Gm Powd.pack, 17 GM PO DAILY, (Reported) Terazosin HCl 1 Mg Capsule, 1 MG PO BID, (Reported) Testosterone 75 Gm Gel..supervisor pipeline, 2 PUMP TD DAILY, (Reported) Ticagrelor 90 Mg Tablet, 90 MG PO BID, (Reported) Tolnaftate 150 Gm [place], TP Q48H, (Reported) APPLY TO LEFT FOOT AND TOES Trazodone HCl 50 Mg Tablet, 50 MG PO HS, (Reported) Vits A and D/White Pet/Lanolin 42.5 Gm Oint...g., TP Q48H, (Reported) APPLY TO LEFT LOWER EXTREMITY Patient Home Medication List Home Medication List Reviewed: Yes Physical Exam-Cardiology Physical Exam Vital Signs/I&O 07/20/19 07/20/19 07/20/19 07/20/19 02:45 03:00 03:15 03:30 Pulse 78 75 73 79 B/P (MAP) 176/81 (112) 174/78 (110) 177/82 (113) 165/81 (109) Pulse Ox 96 97 98 97 O2 Delivery Room Air Room Air Room Air Room Air 07/20/19 07/20/19 07/20/19 07/20/19 03:45 04:00 04:00 04:15 Pulse 77 73 79 B/P (MAP) 179/81 (113) 174/77 (109) 184/87 (119) Pulse Ox 98 98 95 O2 Delivery Room Air Room Air Room Air Room Air 07/20/19 07/20/19 07/20/19 07/20/19 04:30 05:30 07:00 07:00 Pulse 79 76 92 B/P (MAP) 178/87 (117) 177/80 (112) Pulse Ox 96 97 97 O2 Delivery Room Air Room Air Room Air 07/20/19 07/20/19 07/20/19 07/20/19 07:03 07:57 08:00 09:00 Pulse 84 67 Resp 20 B/P (MAP) 168/71 (103) 151/70 (97) Pulse Ox 98 97 O2 Delivery Room Air Room Air Room Air Room Air 07/20/19 07/20/19 07/20/19 07/20/19 09:02 09:11 12:40 13:00 Temp 36.1 Pulse 89 78 Resp 18 B/P (MAP) 187/99 (128) Pulse Ox 97 O2 Delivery Room Air Room Air Room Air 07/20/19 13:00 Temp 36.8 Pulse 76 Resp 20 B/P (MAP) 177/86 (116) Pulse Ox 100 O2 Delivery Room Air Capillary Refill : Greater Than 3 SecondsLess Than 3 Seconds Constitutional: AAO x 3, well-developed, well-nourished HEENT: PERRL, hearing is well preserved, oral hygience is good Neck: No carotid bruit; carotid pulses are 2 + bilaterally Respiratory: No accessory muscle use, No respiratory distress; chest expansion is symmetric, chest is bilaterally symmetric, lungs clear to auscultation Cardiovascular: regular rate-rhythm; No JVD; S1 and S2 Gastrointestinal: No tender; soft, round, audible bowel sounds Extremities: other (RLE pitting/non-pitting edema; L AKA) Neurologic/Psychiatric: grossly intact Skin: No rash on exposed areas, No ulcerations on exposed areas Data Review Labs Laboratory Tests 07/19/19 20:23: White Blood Count 5.4, Red Blood Count 3.98L, Hemoglobin 10.6L, Hematocrit 33L, Mean Corpuscular Volume 82, Mean Corpuscular Hemoglobin 27, Mean Corpuscular Hemoglobin Concent 32, Red Cell Distribution Width 14.4, Platelet Count 306, Mean Platelet Volume 10.5H, Neutrophils (%) (Auto) 56, Lymphocytes (%) (Auto) 23, Monocytes (%) (Auto) 13H, Eosinophils (%) (Auto) 8, Basophils (%) (Auto) 0, Neutrophils # (Auto) 3.0, Lymphocytes # (Auto) 1.2, Monocytes # (Auto) 0.7, Eosinophils # (Auto) 0.4H, Basophils # (Auto) 0.0, Prothrombin Time 13.9, INR Comment 1.0, Activated Partial Thromboplast Time 30, Sodium Level 140, Potassium Level 4.2, Chloride Level 105, Carbon Dioxide Level 23, Anion Gap 12, Blood Urea Nitrogen 26H, Creatinine 1.11, Estimat Glomerular Filtration Rate > 60, BUN/Creatinine Ratio 23, Glucose Level 99, Calcium Level 10.2H, Corrected Calcium 10.3H, Magnesium Level 2.5H, Total Bilirubin 0.4, Aspartate Amino Transf (AST/SGOT) 15, Alanine Aminotransferase (ALT/SGPT) 20, Alkaline Phosphatase 68, Total Creatine Kinase 139, Creatine Kinase MB 3.2, Myoglobin 134.3H, Troponin I 0.104H, B-Type Natriuretic Peptide 145.1H, Total Protein 7.3, Albumin 3.9, Amylase Level 79, Lipase 66 07/20/19 02:05: Troponin I 0.105H 07/20/19 05:27: Glucometer 162H 07/20/19 06:14: White Blood Count 5.5, Red Blood Count 4.02L, Hemoglobin 10.8L, Hematocrit 33L, Mean Corpuscular Volume 83, Mean Corpuscular Hemoglobin 27, Mean Corpuscular Hemoglobin Concent 33, Red Cell Distribution Width 14.2, Platelet Count 278, Mean Platelet Volume 10.6H, Neutrophils (%) (Auto) 66, Lymphocytes (%) (Auto) 18, Monocytes (%) (Auto) 11, Eosinophils (%) (Auto) 5, Basophils (%) (Auto) 1, Neutrophils # (Auto) 3.6, Lymphocytes # (Auto) 1.0, Monocytes # (Auto) 0.6, Eosinophils # (Auto) 0.3, Basophils # (Auto) 0.0, Sodium Level 138, Potassium Level 4.2, Chloride Level 104, Carbon Dioxide Level 23, Anion Gap 11, Blood Urea Nitrogen 23H, Creatinine 1.01, Estimat Glomerular Filtration Rate > 60, BUN/Creatinine Ratio 23, Glucose Level 165H, Calcium Level 10.2H, Corrected Calcium 10.4H, Total Bilirubin 0.5, Aspartate Amino Transf (AST/SGOT) 16, A lanine Aminotransferase (ALT/SGPT) 19, Alkaline Phosphatase 67, Troponin I 0.095H, Total Protein 7.1, Albumin 3.7, Triglycerides Level 97, Cholesterol Level 159, LDL Cholesterol Direct 73, VLDL Cholesterol 19, HDL Cholesterol 61H 07/20/19 11:33: Glucometer 157H 07/20/19 12:06: Glucometer 224H Laboratory Tests 07/19/19 20:23 07/20/19 06:14 A/P-Cardiology Assessment/Admission Diagnosis Chest pain Mildly elevated troponin: ac NSTEMI vs carryover from last ACS of a week ago (see below) Coronary artery disease, cardiac catheterization was carried out on July 12, 2019 by : Severe long segment stenosis of the midright coronary artery successful deployment of 2 overlapping resolute stent proximally integrity 2.5 x 14 mm in overlapping with on next 2.0 x 30 mm expanded proximally to 2.75 and distally 2.2 mm with excellent results. The distal right PDA has severe stenosi s is a hairline artery, not amendable to intervention. Severe stenosis at the distal LAD at the apex area, very small artery not amendable to intervention 50- 60% stenosis at the mid circumflex artery. Normal left ventricular size with mildly reduced left ventricular systolic function estimated ejection fraction 50 % Echo of 03/23/19: LVEF 50-55%, mild MR, mild to mod LA enlargement, RVSP 37 mmHg Peripheral arterial disease, history of AKA and PCI of the right leg by Dr. Sirena mcdermott, peripheral angiogram done by Dr. Bird in January 2017 had left SFA and popliteal artery angioplasty with drug-eluting balloon and Nitinol stenting, mild iliac disease. Occluded mid stent with diffuse disease Hypertension, labile blood pressure Hyperlipidemia Diabetes mellitus Discussion and Recomendations We advise repeat cardiac cath. We have discussed the procedure, risks, benefits and potential complications of cardiac cath with possible ad hoc coronary intervention. He verbalizes understanding and provides informed consent. Continue home medications Monitor lab Further recs will based on his hospital course We would like to thank Medical Services for this consult Clinical Quality Measures AMI/AHF: ASA po Prior to arrival: Yes (GIVEN BY EMS) DVT/VTE Risk/Contraindication: Risk Factor Score Per Nursin RFS Level Per Nursing on Admit: 4+=Very High Contraindications-Pharm: Other *list below* ANTONIETA CHILDRESS MD FACP FAC CCDS Jul 20, 2019 14:40
[2019-07-21] VITALS (23 sets, daily range): BP systolic 114–199; BP diastolic 60–104
[2019-07-21 04:24] LABS: HEMOGLOBIN 10.4 G/DL (13.3-17.7); MEAN PLATELET VOLUME 10.5 FL (7.4-10.4); RED CELL DISTRIBUTION WIDTH 13.9 % (10.0-14.5); WHITE BLOOD COUNT 5.3 10^3/uL (4.3-11.0)
[2019-07-21 04:34] LABS: INR 1.1 (0.8-1.4); PROTHROMBIN TIME PATIENT 14.6 SEC (12.2-14.7)
[2019-07-21 04:44] LABS: BUN/CREATININE RATIO 17; CALCIUM 9.6 MG/DL (8.5-10.1); CARBON DIOXIDE 20 MMOL/L (21-32); CHLORIDE 102 MMOL/L (98-107); GFR ESTIMATED > 60; GLUCOSE 142 MG/DL (70-105); POTASSIUM 3.9 MMOL/L (3.6-5.0); SODIUM 133 MMOL/L (135-145)
[2019-07-21] MEDS: inSUlin ASPART (NovoLOG) 1 UNIT/0.01 ML (CHARGE PER UNIT) SC SCH ×4 (06:16→21:55)
[2019-07-21] MEDS: ISOSORBIDE MONONITRATE 60 MG (IMDUR) TAB PO SCH (06:32)
[2019-07-21] MEDS ORDERED: LIDOCAINE 1% INJ 20 ML 20 ML VIAL ONE (06:42)
[2019-07-21] MEDS ORDERED: HEParin (CATH LAB) 2,000 ML IV ONE (06:42)
--- NOTE | 2019-07-21 08:02 | Progress Note ---
Subjective Time Seen by a Provider: 08:00 Subjective/Events-last exam Patient feeling okay today. Patient not complaining of chest pain or left arm pain. Patient to have heart catheter this afternoon Objective Exam Vital Signs Date Time Temp Pulse Resp B/P (MAP) Pulse Ox O2 Delivery O2 Flow Rate FiO2 07/21/19 04:00 Room Air 07/21/19 04:00 37.0 92 17 188/94 (125) 99 Room Air 07/21/19 01:00 87 07/21/19 01:00 87 07/21/19 00:00 96 Room Air 07/21/19 00:00 37.2 79 18 165/70 (101) 96 Room Air 07/20/19 21:00 Room Air 07/20/19 20:00 36.7 72 18 163/70 (101) 95 Room Air 07/20/19 20:00 Room Air 07/20/19 19:00 89 07/20/19 17:12 36.6 71 173/76 (108) 97 Room Air 07/20/19 16:00 Room Air 07/20/19 13:00 36.8 76 20 177/86 (116) 100 Room Air 07/20/19 13:00 Room Air 07/20/19 12:40 78 07/20/19 09:11 36.1 89 18 187/99 (128) 97 Room Air 07/20/19 09:02 Room Air 07/20/19 09:00 Room Air I & O 07/21/19 06:59 Intake Total 1390 ml Output Total 1700 ml Balance -310 ml Capillary Refill : Greater Than 3 SecondsLess Than 3 Seconds General Appearance: No Apparent Distress, Thin HEENT: Normal ENT Inspection Neck: Full Range of Motion, Normal Inspection Respiratory: Lungs Clear, No Accessory Muscle Use Cardiovascular: Regular Rate, Rhythm, No Murmur Gastrointestinal: non tender, soft Results Lab Laboratory Tests 07/21/19 03:50 Laboratory Tests 07/20/19 11:33: Glucometer 157H 07/20/19 12:06: Glucometer 224H 07/21/19 03:50: White Blood Count 5.3, Red Blood Count 3.84L, Hemoglobin 10.4L, Hematocrit 32L, Mean Corpuscular Volume 83, Mean Corpuscular Hemoglobin 27, Mean Corpuscular H emoglobin Concent 33, Red Cell Distribution Width 13.9, Platelet Count 269, Mean Platelet Volume 10.5H, Prothrombin Time 14.6, INR Comment 1.1, Activated Partial Thromboplast Time 40H, Sodium Level 133L, Potassium Level 3.9, Chloride Level 102, Carbon Dioxide Level 20L, Anion Gap 11, Blood Urea Nitrogen 15, Creatinine 0.90, Estimat Glomerular Filtration Rate > 60, BUN/Creatinine Ratio 17, Glucose Level 142H, Calcium Level 9.6 Assessment/Plan Assessment/Plan Assess & Plan/Chief Complaint Chest pain. Peripheral artery disease. Hypertension. Elevated troponin minimal. Hyperlipidemia. Diabetes. Clinical Quality Measures Admission Status Admission Dx Elevated troponin. Chest pain. Coronary artery disease. Peripheral artery disease. Diabetes. Amputated [id number] left leg . Hyperlipidemia. Non-STEMI AMI/AHF: ASA po Prior to arrival: Yes (GIVEN BY EMS) DVT/VTE Risk/Contraindication: Risk Factor Score Per Nursin RFS Level Per Nursing on Admit: 4+=Very High Contraindications-Pharm: Other *list below* TERRI TAVAREZ DO Jul 21, 2019 08:02
[2019-07-21] MEDS: ASPIRIN E.C. 81 MG (ECOTRIN) TAB PO SCH (09:04)
[2019-07-21] MEDS: CARVEDILOL 12.5 MG (COREG) TABLET PO SCH ×2 (09:04→20:45)
[2019-07-21] MEDS: meTOprolol SUCCINATE 100 MG (TOPROL XL) TAB PO SCH (09:04)
[2019-07-21] MEDS: ENOXAPARIN 80 MG/0.8 ML (LOVENOX) SYR SC SCH (09:04)
[2019-07-21] MEDS: amLODIPine 5 MG (NORVASC) TAB PO SCH (09:06)
[2019-07-21] MEDS ORDERED: hydrALAZINE (APESOLINE) 20 MG/ML VIAL IV NR (12:15)
--- NOTE | 2019-07-21 12:46 | NUR ---
"RD ASSESSMENT PMHx: DM, PAD, CAD, HTN, hypercholesterolemia, chronic constipation PT INTERACTION: Pt was awake and pleasant during nutritional assessment. Pt states current as poor, but had been great since admission. Pt states recent episodes of nausea and one episode of vomiting yesterday. Note no episode of emesis recorded per chart review. Note pt currently on anti-emetic Zofran. Pt states dealing with chronic constipation. Note no BM has been recorded since admission, per chart review. Pt states recent wt gain, but could not give amount gained or timeframe. Note 13# wt loss x2d, per chart review. This RD unsure is this is true wt loss, fluid loss, or difference in bedscale. ABNORMAL NUTRITION-RELATED LAB VALUES: Hgb 10.4 (L); Hct 34 (L); glu 142 (H) Est. kcal needs: 0405-4208 kcal (25-30 kcal/kg) Est. Pro needs: 62-75 g Pro (1.0-1.2 g Pro/kg) PES STATEMENT: Inadequate oral intake (NI-2.1) related to NPO status | loss of appetite as evidenced by pt interview INTERVENTION: Advance to CHO 45 g/m 3snack diet, when medically able. Encouraged pt to eat when able. Pt may benefit from nutrition supplementation if po intake remains low. Will follow-up on PO intake. MONITOR/EVALUATE: PO Intake; Plan of Care; Hydration Status; Weight Status; Lab Values Elodia Khoury, MS, RD, LD Ext. 133"
--- NOTE | 2019-07-21 14:15 | NUR ---
pt c/o chest pain, VS obtained, Dr. 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
--- NOTE | 2019-07-21 14:38 | NUR ---
PT TAKEN TO OUTSOLE CEMENTER AT THIS TIME.
[2019-07-21] MEDS ORDERED: HEParin 1000 UNIT/ML (10ML VIAL) FOR BOLUS ONE (14:47)
[2019-07-21] MEDS ORDERED: fentaNYL INJECTION 100 MCG/2 ML AMP ONE (14:47)
[2019-07-21] MEDS ORDERED: MIDAZOLAM 5 MG/5 ML (VERSED) VIAL ONE (14:48)
--- NOTE | 2019-07-21 15:03 | Cardiac Procedure Note-CS/ASA ---
Pre-Procedure Note Pre-Op Procedure Note H&P Reviewed The H&P was reviewed, patient examined and no changes noted. Date H&P Reviewed: Jul 21, 2019 Time H&P Reviewed: 15:03 Conscious Sedation Pre-Proced Time 15:03 ASA Score 4 For ASA 3 and 4: Consider anesthesia and medical clearance. Also, for patients with a history of failed moderate sedation consider anesthesia. Airway Lungs Heart ASA score ASA 1: a normal healthy patient ASA 2: a patient with a mild systemic disease (mid diabetes, controlled hypertension, obesity ASA 3: a patient with a severe systemic disease that limits activity (angina, COPD, prior Myocardial infarction) ASA 4: a patient with an incapacitating disease that is a constant threat to life (CHF, renal failure) ASA 5: a moribund patient not expected to survive 24 hrs. (ruptured aneurysm) ASA 6: a declared brain- patient whose organs are being harvested. For emergent operations, add the letter E after the classification Mallampati Classification Grade 2 Sedation Plan Analgesia, Amnesia, Plan communicated to team members, Discussed options with patient/fam, Discussed risks with patient/fam The patient is an appropriate candidate to undergo the planned procedure, sedation, and anesthesia. The patient immediately re-assessed prior to indication. ANTONIETA CHILDRESS MD FACP FAC CCDS Jul 21, 2019 15:03
[2019-07-21] MEDS ORDERED: NS IV 1000 ML 1,000 ML ONE (15:13)
[2019-07-21] MEDS ORDERED: EPTIFIBATIDE BOLUS 20 ML IV ONE (15:21)
[2019-07-21] MEDS ORDERED: NITRO DRIP 25000 MCG/D5W 250 ML IV ONE (15:41)
--- NOTE | 2019-07-21 15:45 | NUR ---
Home wound vac placed. Instructions given to pt regarding the unit functioning and when to apply wet to dry dsg. Supplies given. Pt verbalized understanding. Unit # [id number] applied and signed for. Unit # [id number] taken off, cleaned and taken to supply chain.
[2019-07-21] MEDS: NS IV 1000 ML 1,000 ML IV SCH ×2 (15:48→17:14)
[2019-07-21] MEDS ORDERED: TICAGRELOR 90 MG TABLET (BRILINTA) PO ONE (16:07)
[2019-07-21] MEDS ORDERED: ASPIRIN 81 MG CHEW (CHILDREN'S ASA) ONE (16:12)
[2019-07-21] MEDS ORDERED: PATIENT MAY USE OWN MEDS, ALL PO SCH (16:15)
--- NOTE | 2019-07-21 18:05 | Progress Note - Cardiology ---
Cardiology SOAP Progress Note Subjective: Episodes of cp today Chronic exertional shortness of breath No palp or syncope Objective: I&O/Vital Signs 07/21/19 07/21/19 07/21/19 07/21/19 07:06 08:00 08:15 09:00 Temp 37.1 Pulse 69 84 Resp 18 B/P (MAP) 148/94 (112) Pulse Ox 99 O2 Delivery Room Air Room Air Room Air 07/21/19 07/21/19 07/21/19 07/21/19 11:37 12:00 12:55 14:02 Temp 37.3 37.5 Pulse 87 72 98 Resp 20 22 B/P (MAP) 179/87 (117) 199/91 (127) Pulse Ox 99 100 O2 Delivery Room Air Room Air Room Air 07/21/19 07/21/19 07/21/19 07/21/19 16:20 16:20 16:35 16:50 Temp 37.2 Pulse 87 85 85 Resp 22 22 22 B/P (MAP) 185/78 (113) 195/83 (120) 183/81 (115) Pulse Ox 98 98 98 O2 Delivery Room Air Room Air Room Air Room Air 07/21/19 07/21/19 17:05 17:30 Pulse 91 96 Resp 22 22 B/P (MAP) 188/87 (120) 181/93 (122) Pulse Ox 98 98 O2 Delivery Room Air Room Air 07/21/19 00:00 Intake Total 790 ml Output Total 900 ml Balance -110 ml Weight (Pounds): 139 Weight (Ounces): 0.0 Weight (Calculated Kilograms): [id number] Constitutional: AAO x 3, well-developed, well-nourished Respiratory: No accessory muscle use, No respiratory distress; chest expansion is symmetric, chest is bilaterally symmetric, lungs clear to auscultation Cardiovascular: regular rate-rhythm; No JVD; S1 and S2 Gastrointestional: No tender; soft, round, audible bowel sounds Extremities: other (RLE pitting/non-pitting edema; L AKA) Neurologic/Psychiatric: grossly intact Skin: No rash on exposed areas, No ulcerations on exposed areas Results/Procedures: Labs Laboratory Tests 07/21/19 03:50: White Blood Count 5.3, Red Blood Count 3.84L, Hemoglobin 10.4L, Hematocrit 32L, Mean Corpuscular Volume 83, Mean Corpuscular Hemoglobin 27, Mean Corpuscular Hemoglobin Concent 33, Red Cell Distribution Width 13.9, Platelet Count 269, Mean Platelet Volume 10.5H, Prothrombin Time 14.6, INR Comment 1.1, Activated Partial Thromboplast Time 40H, Sodium Level 133L, Potassium Level 3.9, Chloride Level 102, Carbon Dioxide Level 20L, Anion Gap 11, Blood Urea Nitrogen 15, Creatinine 0.90, Estimat Glomerular Filtration Rate > 60, BUN/Creatinine Ratio 17, Glucose Level 142H, Calcium Level 9.6 07/21/19 11:18: Glucometer 229H Microbiology 07/20/19 MRSA Screen - Final, Complete MRSA not isolated A/P: Assessment: Unstable angina Elevated troponin (declining) likely remnant from NSTEMI of 07/11/19 Coronary artery disease. Last card cath on 07/21/19 showed 80% mid to distal LAD stenosis that was successfully stented with Kelton 2.0 x 18 mm stent; very distal LAD had 80% stenosis but is of too small a caliber for intervention; there were patent mid RCA stents (drug-eluting 2.5 x 14 and 2.0 x 30) placed on 07/12/[address] Grant; LVEF 45-50%, posterobasal akinesis Echo of 03/23/19: LVEF 50-55%, mild MR, mild to mod LA enlargement, RVSP 37 mmHg Peripheral arterial disease. Has had L AKA. Noted to have occluded R SFA at time of card cath of 07/21/19 (occlusion within a previously stented segment) Hypertension, labile blood pressure Hyperlipidemia Diabetes mellitus Plan: * Complex management due multiple comorbidities and advance CV disease * Multiple PCIs undertaken (see above) * Dual antiplatelet therapy (Brilinta and ASA) * Titrate other meds for control of angina * Monitor labs * I spoke with him and his and answered questions Clinical Quality Measures AMI/AHF: ASA po Prior to arrival: Yes (GIVEN BY EMS) ANTONIETA CHILDRESS MD FACP [facility] CCDS Jul 21, 2019 18:05
--- NOTE | 2019-07-21 19:49 | CARDIAC CATHETERIZATION ---
DATE OF SERVICE: 07/21/2019 CARDIAC CATHETERIZATION AND CORONARY INTERVENTION REPORT The patient is a 73-year-old gentleman who is known to have coronary artery disease and who was hospitalized with unstable angina. Cardiac catheterization was carried out after having obtained informed consent for cardiac catheterization and possible ad hoc coronary intervention. DESCRIPTION OF PROCEDURE: He was brought to the cardiac catheterization laboratory in a fasting state. Right groin was prepared and draped in the usual sterile fashion. A 1% lidocaine was used for local anesthesia. Modified Seldinger technique was used to advance a 5-Micronesian sheath in right femoral artery. Angiography of the right femoral artery was carried out through the sheath. A 5-Micronesian JL4 catheter was used for left coronary angiography, 5-Micronesian JR4 catheter was used for right coronary angiography. A 5-Micronesian pigtail catheter was used for left heart catheterization, left ventricular angiography. Subsequently, percutaneous intervention was carried out to the left anterior descending artery that is described below. PERCUTANEOUS INTERVENTION TO THE LEFT ANTERIOR DESCENDING ARTERY: We exchanged the sheath over a wire for a 6-Micronesian sheath. We gave 5000 units of intravenous heparin and double bolus of Integrilin. We used a 6-Micronesian JL4 guide catheter initially, but this did not prove adequate for glide advancement. This was removed and we used a 3.5 EBU guide catheter to engage the left coronary artery. We were able to advance a ChoICE floppy wire into the left anterior descending artery and the wire was passed across the lesion into the distal vessel. We advanced Resolute Kelton 2.0 x 18 mm stent to a lesion in the mid to distal left anterior descending artery. This was carefully positioned and the stent was deployed at 15 atmospheres. Subsequent angiography revealed 0% residual stenosis at the previous site of 80% stenosis. The very distal left anterior descending artery has 80% to 90% stenosis, right prior to its termination. Here the vessel is of a very small caliber and not amenable to intervention. The mid left anterior descending, at the site of origin of a diagonal branch has 50% stenosis. The left circumflex artery has mild plaque. The right coronary artery is dominant and has a patent stent in its mid portion. Following completion of the percutaneous intervention of the left anterior descending artery, we removed the angioplasty equipment. Angiography of the right femoral artery through the sheath had indicated patent right common femoral and right deep femoral arteries, but the right superficial femoral is found to be occluded in its proximal portion. We used Mynx to achieve hemostasis because the vessel caliber at the site of sheath insertion was good and the site appeared suitable for Mynx deployment. He tolerated the procedure well. HEMODYNAMICS: Left ventricular end-diastolic pressure following coronary angiography was 2 mmHg. There is no significant pressure gradient on pullback across the aortic valve. Ascending aortic pressure was 128/70 with a mean of 94 mmHg. LEFT VENTRICULAR ANGIOGRAPHY: Left ventricular angiography was carried out in the right anterior oblique projection. Global left ventricular systolic function is mildly impaired. Left ventricular ejection fraction is 45% to 50%. There is posterobasal akinesis and some diaphragmatic hypokinesis. CONCLUSIONS: 1. Coronary artery disease primarily consisting of 80% mid to distal vessel stenosis in the left anterior descending artery, which was successfully stented with Resolute Kelton 2.0 x 18 mm stent with reduction of stenosis to 0% residual. The very distal left anterior descending artery had 80% to 90% stenosis, but is a very small caliber and not amenable to intervention. The left circumflex artery has mild diffuse plaque. The right coronary artery is dominant and has patent in its mid portion that are known to be 2.5 x 14 mm and 2.0 x 30 mm stent placed on 07/12/2019. Right coronary artery just distal to the stented segment has approximately 50% stenosis. 2. Low left ventricular end-diastolic pressure. 3. Posterior basal akinesis and diaphragmatic hypokinesis. 4. Mild impairment of global left ventricular systolic function with ejection fraction 45% to 50%. DISCUSSION AND RECOMMENDATIONS: We are continuing dual antiplatelet therapy. He remains hospitalized after this intervention for further titration of medications. Job ID: [id number] DocumentID: [id number] Dictated Date: 07/21/2019 16:06:30 Pole Lift Operator Date: 07/21/2019 19:48:06 Dictated By: ANTONIETA CHILDRESS MD, MA, FACP, FACC,
--- NOTE | 2019-07-21 20:30 | NUR ---
CALLED DR. CHILDRESS TO INFORM HIM THAT PATIENT'S BP IS 190S/90, AND PULSE-90'S AND ALSO LET HIM KNOW THAT MANUAL PRESSURE HAD TO BE HELD TO RIGHT GROIN, D/T BLEEDING AND SWELLING AROUND DRESSING SITE. RECEIVED ORDERS FOR 100MG HYDRALAZINE NOW AND TID AND TO ADMINISTER 10MG NORVASC IF PRESSURE IS NOT BELOW 150 IN TWO HOURS. 2100-CALLED DR. TAVAREZ. INFORMED HIM THAT PRESSURE HAD TO BE HELD ON RIGHT GROIN AND THAT PATIENT WAS REQUESTING HIS HYDROCODONE, XANAX, AND GABAPENTIN. RECEIVED ORDERS TO RESTART THESE HOME MEDS. DR. TAVAREZ ALSO STATED THAT HE WOULD REVIEW HIS ENTIRE HOME MED LIST IN THE AM AND RESTART THEM.
[2019-07-21] MEDS ORDERED: hydrALAZINE (APRESOLINE) 25 MG TAB ONE (20:41)
[2019-07-21] MEDS ORDERED: hydrALAZINE (APRESOLINE) 25 MG TAB PO ONE (20:45)
[2019-07-21] MEDS: TICAGRELOR 90 MG TABLET (BRILINTA) PO SCH (20:46)
[2019-07-21] MEDS ORDERED: HYDROcodone/APAP 7.5 MG/325 MG (LORTAB, LORCET PLUS) TABLET PO SCH (21:00)
[2019-07-21] MEDS ORDERED: ALPRAZolam 0.5 MG (XANAX) TAB PO PRN (21:00)
[2019-07-21] MEDS ORDERED: ALPRAZolam 0.25 MG (XANAX) TAB PO SCH (21:00)
[2019-07-21] MEDS ORDERED: ACETAMINOPHEN 325 MG TABLET PO PRN (21:15)
[2019-07-21] MEDS: ONDANSETRON 4 MG/2 ML (SDV) Z0FRAN IVP PRN (22:01)
[2019-07-21] MEDS: GABAPENTIN 600 MG (NEURONTIN) TAB PO SCH (23:07)
[2019-07-22 00:02] VITALS: BP 177/86
[2019-07-22 00:57] VITALS: BP 153/75
[2019-07-22 03:41] LABS: HEMOGLOBIN 10.9 G/DL (13.3-17.7); MEAN PLATELET VOLUME 10.2 FL (7.4-10.4); RED CELL DISTRIBUTION WIDTH 13.8 % (10.0-14.5); WHITE BLOOD COUNT 7.6 10^3/uL (4.3-11.0)
[2019-07-22 04:00] VITALS: BP 155/79
[2019-07-22 04:00] LABS: BUN/CREATININE RATIO 16; CALCIUM 9.6 MG/DL (8.5-10.1); CARBON DIOXIDE 21 MMOL/L (21-32); CHLORIDE 102 MMOL/L (98-107); CREATININE SERUM 0.85 MG/DL (0.60-1.30); GFR ESTIMATED > 60; GLUCOSE 126 MG/DL (70-105); POTASSIUM 3.6 MMOL/L (3.6-5.0); SODIUM 134 MMOL/L (135-145)
[2019-07-22] MEDS: inSUlin ASPART (NovoLOG) 1 UNIT/0.01 ML (CHARGE PER UNIT) SC SCH (05:32)
[2019-07-22] MEDS ORDERED: hydrALAZINE (APRESOLINE) 25 MG TAB PO SCH (06:00)
[2019-07-22] MEDS ORDERED: ALPRAZolam 0.25 MG (XANAX) TAB ONE (06:10)
[2019-07-22] MEDS: ISOSORBIDE MONONITRATE 60 MG (IMDUR) TAB PO SCH (06:13)
[2019-07-22] MEDS ORDERED: ALPRAZolam 0.5 MG (XANAX) TAB ONE (06:14)
[2019-07-22] MEDS: NS IV 1000 ML 1,000 ML IV SCH (06:15)
[2019-07-22] MEDS ORDERED: HYDROcodone/APAP 7.5 MG/325 MG (LORTAB, LORCET PLUS) TABLET PO PRN (07:00)
--- NOTE | 2019-07-22 07:54 | Progress Note ---
Subjective Time Seen by a Provider: 07:49 Subjective/Events-last exam Patient feeling better this morning. Patient feeling weak. Patient had a stent put in. Blood pressures this morning better Objective Exam Vital Signs Date Time Temp Pulse Resp B/P (MAP) Pulse Ox O2 Delivery O2 Flow Rate FiO2 07/22/19 04:00 37.0 85 18 155/79 (104) 100 Room Air 07/22/19 04:00 Room Air 07/22/19 01:00 102 07/22/19 00:57 105 153/75 (101) 07/22/19 00:02 91 177/86 (116) 07/22/19 00:00 Room Air 07/21/19 23:02 101 146/76 (99) 07/21/19 22:32 81 114/62 (79) 07/21/19 22:02 90 132/60 (84) 07/21/19 21:47 93 22 127/68 (87) 07/21/19 21:32 70 20 138/81 (100) 07/21/19 21:17 91 20 168/85 (112) 07/21/19 21:00 Room Air 07/21/19 20:47 95 22 180/94 (122) 07/21/19 20:32 98 20 175/86 (115) 07/21/19 20:15 93 07/21/19 20:02 97 20 192/99 (130) 07/21/19 20:00 Room Air 07/21/19 19:47 95 20 191/96 (127) 07/21/19 19:32 99 20 198/104 (135) 07/21/19 19:00 90 07/21/19 18:30 105 22 180/90 (120) 98 Room Air 07/21/19 18:00 92 22 195/91 (125) 98 Room Air 07/21/19 17:30 96 22 181/93 (122) 98 Room Air 07/21/19 17:05 91 22 188/87 (120) 98 Room Air 07/21/19 16:50 85 22 183/81 (115) 98 Room Air 07/21/19 16:35 85 22 195/83 (120) 98 Room Air 07/21/19 16:20 37.2 87 22 185/78 (113) 98 Room Air 07/21/19 16:20 Room Air 07/21/19 14:02 37.5 98 22 199/91 (127) 100 Room Air 07/21/19 12:55 72 07/21/19 12:00 Room Air 07/21/19 11:37 37.3 87 20 179/87 (117) 99 Room Air 07/21/19 09:00 Room Air 07/21/19 08:15 37.1 84 18 148/94 (112) 99 Room Air 07/21/19 08:00 Room Air I & O 07/22/19 07:00 Intake Total 2360 ml Output Total 1800 ml Balance 560 ml Capillary Refill : Greater Than 3 SecondsLess Than 3 Seconds General Appearance: No Apparent Distress, Thin HEENT: Normal ENT Inspection Neck: Full Range of Motion, Normal Inspection Respiratory: Lungs Clear, No Accessory Muscle Use, No Respiratory Distress Cardiovascular: Regular Rate, Rhythm, No Murmur Gastrointestinal: non tender, soft Results Lab Laboratory Tests 07/22/19 03:15 Laboratory Tests 07/21/19 11:18: Glucometer 229H 07/22/19 03:15: White Blood Count 7.6, Red Blood Count 4.02L, Hemoglobin 10.9L, Hematocrit 32L, Mean Corpuscular Volume 80, Mean Corpuscular Hemoglobin 27, Mean Corpuscular Hemoglobin Concent 34, Red Cell Distribution Width 13.8, Platelet Count 280, Mean Platelet Volume 10.2, Sodium Level 134L, Potassium Level 3.6, Chloride Level 102, Carbon Dioxide Level 21, Anion Gap 11, Blood Urea Nitrogen 14, Creatinine 0.85, Estimat Glomerular Filtration Rate > 60, BUN/Creatinine Ratio 16, Glucose Level 126H, Calcium Level 9.6 Microbiology 07/20/19 MRSA Screen - Final, Complete MRSA not isolated Assessment/Plan Assessment/Plan Assess & Plan/Chief Complaint Chest pain. Peripheral artery disease. Hypertension. Elevated troponin minimal. Hyperlipidemia. Diabetes.. . 07/22/19. No chest pain. Peripheral artery disease. Hypertension. Hyperlipidemia Diabetes. Patient feeling okay feeling a little weak Clinical Quality Measures Admission Status Admission Dx Elevated troponin. Chest pain. Coronary artery disease. Peripheral artery disease. Diabetes. Amputated [id number] left leg . Hyperlipidemia. Non-STEMI AMI/AHF: ASA po Prior to arrival: Yes (GIVEN BY EMS) DVT/VTE Risk/Contraindication: Risk Factor Score Per Nursin RFS Level Per Nursing on Admit: 4+=Very High Contraindications-Pharm: Other *list below* TERRI TAVAREZ DO Jul 22, 2019 07:54
[2019-07-22 08:00] VITALS: BP 127/68
[2019-07-22] MEDS: CARVEDILOL 12.5 MG (COREG) TABLET PO SCH (08:34)
[2019-07-22] MEDS: GABAPENTIN 600 MG (NEURONTIN) TAB PO SCH (08:34)
[2019-07-22] MEDS: amLODIPine 5 MG (NORVASC) TAB PO SCH (08:34)
[2019-07-22] MEDS: TICAGRELOR 90 MG TABLET (BRILINTA) PO SCH (08:34)
[2019-07-22] MEDS: meTOprolol SUCCINATE 100 MG (TOPROL XL) TAB PO SCH (08:35)
[2019-07-22] MEDS ORDERED: ASPIRIN 81 MG CHEW (CHILDREN'S ASA) PO SCH (09:00)
--- NOTE | 2019-07-22 11:58 | Physician Query Clarification ---
PQ-Further Specificity Admission/Discharge Admission Date: Jul 19, 2019 at 20:15 Discharge Date: The medical record reflects the following clinical scenario: History/Risk Factors: Recent NSTEMI 07/11/19 Unstable angina Clinical Findings:Elevated troponins 0.104, 0.105, and 0.095. Unstable angina documented. Cardiac cath conclusion: Coronary artery disease primarily consisting of 80% mid to distal vessel stenosis in the left anterior descending artery.The very distal left anterior descending artery had 80% to 90% stenosis, but is a very small caliber and not amenable to intervention. The left circumflex artery had mild diffuse plaque. The right coronary artery is dominant and has patent in it's mid portion that are known to be 2.5 x 14 mm and 2.0 x 30mm stent placed on 07/12/2019. Right coronary artery just distal to the stented segment has approx 50% stenosis. Treatment: Placement of Resolute Kelton stent, Dual antiplatelet therapy, IVP Morphine Sulfate 4 mg. Your consult listed: Mildly elevated troponin: ac NSTEMI vs carryover from last ACS of a week ago. Question: Can you further specify final diagnosis, after study per the clinical indicators above? Please document a response in the Progress Notes or Discharge Summary. 1. Subsequent NSTEMI this admission with previous NSTEMI from 07/11 admission. 2. Unstable angina due to coronary artery disease with previous NSTEMI on 07/11 admission. 3. Other, with explanation of the clinical findings. 4. Clinically undetermined, no explanation for the clinical findings. PHYSICIAN RESPONSE Can you specify per above: 2 Please remember a lack of response to the above will prompt a phone page by CDI/Coding staff. In responding to this query, please exercise your independent professional judgment. The purpose of this communication is to more accurately reflect the complexity of your patients condition. The fact that a question is asked does not imply that any particular answer is desired or expected. Thank you for your timely response to this clarification. Requestors name: Violeta Khanna [facility] Phone # ext [phone] or [phone] THIS PHYSICIAN QUERY FORM IS A PERMANENT PART OF THE MEDICAL RECORD VIOLETA KHANNA Jul 22, 2019 11:58 ANTONIETA CHILDRESS MD [facility] Jul 23, 2019 18:21
--- NOTE | 2019-07-22 12:42 | Physician Query Clarification ---
PQ-Uncertain Diagnosis Admission/Discharge Admission Date: Jul 19, 2019 at 20:15 Discharge Date: The medical record reflects the following clinical scenario: History/Risk Factors: Recent NSTEMI Pneumonia still being treated with antibiotics on admission per ED Record-Dr. Lpoes's dictation-Doxycycline Hyclate 100mg capsule PO BID. Prescribed by:Christina Puente on 07/12/19. Clinical Findings:Chest xray 07/19-Frontal chest obtained at 08:25 and compared to 07/15/2019-Impression: Poor inspiration with bibasilar atelectatic changes. There is no pneumothorax or pleural fluid. 07/20-chest xray-Findings: Single view of the chest demonstrate stable cardiac enlargement without overt pulmonary edema. There is unchanged basilar atelectasis. There is no pneumothorax or a large effusion. The osseous structures are stable. Impression: Unchanged bibasilar atelectasis. ED record-Patient states he has shortness of breath, but states that has been ongoing for the last week, and he was diagnosed with pneumonia with that hospitalization and has been on antibiotics. Treatment: Follow up chest xrays. Question: Is Pneumonia a clinically valid diagnosis for this current stay? Dx of pneumonia from last week was documented in the ED with no further documentation in the medical record. Please document a response in Progress Note or Discharge Summary. 1. Yes, clinically valid, condition resolved. 2. No, condition ruled out. 3. Other, with explanation of clinical findings. 4. Undetermined, no explanation for clinical findings. Please remember a lack of response to the above will prompt a phone page by CDI/Coding staff. In responding to this query, please exercise your independent professional judgment. The purpose of this communication is to more accurately reflect the complexity of your patients condition. The fact that a question is asked does not imply that any particular answer is desired or expected. Thank you for your timely response to this clarification. Requestors name: Violeta Khanna [facility] Phone # ext [phone] or [phone] THIS PHYSICIAN QUERY FORM IS A PERMANENT PART OF THE MEDICAL RECORD VIOLETA KHANNA Jul 22, 2019 12:42 POSWHPIOTR FREDERICK Aug 05, 2019 10:52 POS
--- NOTE | 2019-07-22 13:14 | Progress Note - Cardiology ---
Cardiology SOAP Progress Note Subjective: No cp or palp or syncope Chronic shortness of breath No groin discomfort Objective: I&O/Vital Signs 07/22/19 07/22/19 07/22/19 07/22/19 04:00 04:00 07:00 08:00 Temp 37.0 Pulse 85 81 Resp 18 B/P (MAP) 155/79 (104) Pulse Ox 100 O2 Delivery Room Air Room Air Room Air 07/22/19 07/22/19 08:00 09:00 Temp 36.2 Pulse 88 Resp 16 B/P (MAP) 127/68 (87) Pulse Ox 100 O2 Delivery Room Air Room Air 07/22/19 00:00 Intake Total 1160 ml Output Total 1800 ml Balance -640 ml Weight (Pounds): 139 Weight (Ounces): 0.0 Weight (Calculated Kilograms): 63.027986 Device Insertion Site: without hematoma Bruising: mild bruising Constitutional: AAO x 3, well-developed, well-nourished Respiratory: No accessory muscle use, No respiratory distress; chest expansion is symmetric, chest is bilaterally symmetric, lungs clear to auscultation Cardiovascular: regular rate-rhythm; No JVD; S1 and S2 Gastrointestional: No tender; soft, round, audible bowel sounds Extremities: other (RLE pitting/non-pitting edema; L AKA) Neurologic/Psychiatric: grossly intact Skin: No rash on exposed areas, No ulcerations on exposed areas Results/Procedures: Labs Laboratory Tests 07/22/19 03:15: White Blood Count 7.6, Red Blood Count 4.02L, Hemoglobin 10.9L, Hematocrit 32L, Mean Corpuscular Volume 80, Mean Corpuscular Hemoglobin 27, Mean Corpuscular Hemoglobin Concent 34, Red Cell Distribution Width 13.8, Platelet Count 280, Mean Platelet Volume 10.2, Sodium Level 134L, Potassium Level 3.6, Chloride Le adilson 102, Carbon Dioxide Level 21, Anion Gap 11, Blood Urea Nitrogen 14, Creatinine 0.85, Estimat Glomerular Filtration Rate > 60, BUN/Creatinine Ratio 16, Glucose Level 126H, Calcium Level 9.6 Microbiology 07/20/19 MRSA Screen - Final, Complete MRSA not isolated A/P: Assessment: Unstable angina, treated with intervention to the LAD (see below) Coronary artery disease. Last card cath on 07/21/19 showed 80% mid to distal LAD stenosis that was successfully stented with Check 2.0 x 18 mm stent; very distal LAD had 80% stenosis but is of too small a caliber for intervention; there were patent mid RCA stents (drug-eluting 2.5 x 14 and 2.0 x 30) placed on 07/12/[address] Grant; LVEF 45-50%, posterobasal akinesis Elevated troponin (declining) likely remnant from NSTEMI of 07/11/19 Echo of 03/23/19: LVEF 50-55%, mild MR, mild to mod LA enlargement, RVSP 37 mmHg Peripheral arterial disease. Has had L AKA. Noted to have occluded R SFA at time of card cath of 07/21/19 (occlusion within a previously stented segment) Hypertension, labile blood pressure Hyperlipidemia Diabetes mellitus Plan: * Complex management due multiple comorbidities and advanced CV disease * Multiple PCIs undertaken (see above) * Dual antiplatelet therapy (Brilinta and ASA) * Continue current regimen * I discussed his case with Dr Puente this am * I again explained to him and his the details of his coronary anatomy, interventions undertaken, and other CV issue * Outpt f/u advised Clinical Quality Measures AMI/AHF: ASA po Prior to arrival: Yes (GIVEN BY EMS) ANTONIETA CHILDRESS MD FACP [facility] Jul 22, 2019 13:14
[2019-07-22] MEDS ORDERED: GABAPENTIN 300 MG (NEURONTIN) CAP PO SCH (18:00)
--- NOTE | 2019-07-23 07:33 | Discharge Summary ---
Diagnosis/Chief Complaint Date of Admission Jul 19, 2019 at 20:15 Date of Discharge Jul 22, 2019 at 11:40 Discharge Date: Jul 22, 2019 Discharge Time: 1100 Discharge Diagnosis Unstable angina. Coronary artery disease. Hypertension. Anemia. Hyponatremia. Acquired absence of left leg above-knee. Peripheral artery disease Hypertension. Long-standing use of insulin Diabetes. Non-ST elevated MD. Hyperlipidemia. Reason Hospital Visit Patient is a resident of the [facility]. Patient had chest pain. Patient states his chest pain was worse than the last time he had an heart attack on 02/13 and had 2 stents put in on the right. Patient's troponin is elevated. Patient emergency room had pain on the left shoulder and arm.. 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 Patient has history of peripheral artery disease. Coronary artery disease. Diabetes. Elevated troponin. Discharge Summary Procedures Cardiac catheterization Consultations Cardiology Discharge Physical Examination Allergies: Coded Allergies: Sulfa (Sulfonamide Antibiotics) (Verified Allergy, Severe, HIVES, 07/19/19) temazepam (Verified Allergy, Severe, 07/19/19) MENTAL CONFUSION hydromorphone (Verified Allergy, Unknown, 07/19/19) pravastatin (Verified Adverse Reaction, Severe, RASH, 07/19/19) clopidogrel (Verified Adverse Reaction, Unknown, 07/19/19) Vitals & I&Os Vital Signs Date Time Temp Pulse Resp B/P (MAP) Pulse Ox O2 Delivery O2 Flow Rate FiO2 07/22/19 09:00 Room Air 07/22/19 08:00 36.2 88 16 127/68 (87) 100 Hospital Course Patient in hospital had coronary catheterization. Patient had a stent put in the LAD. Patient felt better no chest pain. Patient had minimally elevated troponin 1 Labs (last 24 hrs) Laboratory Tests 07/19/19 20:23: White Blood Count 5.4, Red Blood Count 3.98L, Hemoglobin 10.6L, Hematocrit 33L, Mean Corpuscular Volume 82, Mean Corpuscular Hemoglobin 27, Mean Corpuscular Hemoglobin Concent 32, Red Cell Distribution Width 14.4, Platelet Count 306, Mean Platelet Volume 10.5H, Neutrophils (%) (Auto) 56, Lymphocytes (%) (Auto) 23, Monocytes (%) (Auto) 13H, Eosinophils (%) (Auto) 8, Basophils (%) (Auto) 0, Neutrophils # (Auto) 3.0, Lymphocytes # (Auto) 1.2, Monocytes # (Auto) 0.7, Eo sinophils # (Auto) 0.4H, Basophils # (Auto) 0.0, Prothrombin Time 13.9, INR Comment 1.0, Activated Partial Thromboplast Time 30, Sodium Level 140, Potassium Level 4.2, Chloride Level 105, Carbon Dioxide Level 23, Anion Gap 12, Blood Urea Nitrogen 26H, Creatinine 1.11, Estimat Glomerular Filtration Rate > 60, BUN/Creatinine Ratio 23, Glucose Level 99, Calcium Level 10.2H, Corrected Calcium 10.3H, Magnesium Level 2.5H, Total Bilirubin 0.4, Aspartate Amino Transf (AST/SGOT) 15, Alanine Aminotransferase (ALT/SGPT) 20, Alkaline Phosphatase 68, Total Creatine Kinase 139, Creatine Kinase MB 3.2, Myoglobin 134.3H, Troponin I 0.104H, B-Type Natriuretic Peptide 145.1H, Total Protein 7.3, Albumin 3.9, Amylase Level 79, Lipase 66 07/20/19 02:05: Troponin I 0.105H 07/20/19 05:27: Glucometer 162H 07/20/19 06:14: White Blood Count 5.5, Red Blood Count 4.02L, Hemoglobin 10.8L, Hematocrit 33L, Mean Corpuscular Volume 83, Mean Corpuscular Hemoglobin 27, Mean Corpuscular Hemoglobin Concent 33, Red Cell Distribution Width 14.2, Platelet Count 278, Akila n Platelet Volume 10.6H, Neutrophils (%) (Auto) 66, Lymphocytes (%) (Auto) 18, Monocytes (%) (Auto) 11, Eosinophils (%) (Auto) 5, Basophils (%) (Auto) 1, Neutrophils # (Auto) 3.6, Lymphocytes # (Auto) 1.0, Monocytes # (Auto) 0.6, Eosinophils # (Auto) 0.3, Basophils # (Auto) 0.0, Sodium Level 138, Potassium Level 4.2, Chloride Level 104, Carbon Dioxide Level 23, Anion Gap 11, Blood Urea Nitrogen 23H, Creatinine 1.01, Estimat Glomerular Filtration Rate > 60, BUN/Crea tinine Ratio 23, Glucose Level 165H, Calcium Level 10.2H, Corrected Calcium 10.4H, Total Bilirubin 0.5, Aspartate Amino Transf (AST/SGOT) 16, Alanine Aminotransferase (ALT/SGPT) 19, Alkaline Phosphatase 67, Troponin I 0.095H, Total Protein 7.1, Albumin 3.7, Triglycerides Level 97, Cholesterol Level 159, LDL Cholesterol Direct 73, VLDL Cholesterol 19, HDL Cholesterol 61H 07/20/19 11:33: Glucometer 157H 07/20/19 12:06: Glucometer 224H 07/21/19 03:50: White Blood Count 5.3, Red Blood Count 3.84L, Hemoglobin 10.4L, Hematocrit 32L, Mean Corpuscular Volume 83, Mean Corpuscular Hemoglobin 27, Mean Corpuscular Hemoglobin Concent 33, Red Cell Distribution Width 13.9, Platelet Count 269, Mean Platelet Volume 10.5H, Prothrombin Time 14.6, INR Comment 1.1, Activated Partial Thromboplast Time 40H, Sodium Level 133L, Potassium Level 3.9, Chloride Level 102, Carbon Dioxide Level 20L, Anion Gap 11, Blood Urea Nitrogen 15, Creatinine 0.90, Estimat Glomerular Filtration Rate > 60, BUN/Creatinine Ratio 17, Glucose Level 142H, Calcium Level 9.6 07/21/19 11:18: Glucometer 229H 07/22/19 03:15: White Blood Count 7.6, Red Blood Count 4.02L, Hemoglobin 10.9L, Hematocrit 32L, Mean Corpuscular Volume 80, Mean Corpuscular Hemoglobin 27, Mean Corpuscular Hemoglobin Concent 34, Red Cell Distribution Width 13.8, Platelet Count 280, Mean Platelet Volume 10.2, Sodium Level 134L, Potassium Level 3.6, Chloride Level 102, Carbon Dioxide Level 21, Anion Gap 11, Blood Urea Nitrogen 14, Creatinine 0.85, Estimat Glomerular Filtration Rate > 60, BUN/Creatinine Ratio 16, Glucose Level 126H, Calcium Level 9.6 Microbiology 07/20/19 MRSA Screen - Final, Complete MRSA not isolated Laboratory Tests 07/19/19 20:23 07/20/19 06:14 07/21/19 03:50 07/22/19 03:15 Pending Labs Microbiology Date/Time Source Procedure Growth Status 07/20/19 11:07 Nasal MRSA Screen - Final MRSA not isolated Complete Laboratory Tests 07/19/19 20:23: White Blood Count 5.4, Red Blood Count 3.98, Hemoglobin 10.6, Hematocrit 33, Mean Corpuscular Volume 82, Mean Corpuscular Hemoglobin 27, Mean Corpuscular Hemoglobin Concent 32, Red Cell Distribution Width 14.4, Platelet Count 306, Mean Platelet Volume 10.5, Neutrophils (%) (Auto) 56, Lymphocytes (%) (Auto) 23, Monocytes (%) (Auto) 13, Eosinophils (%) (Auto) 8, Basophils (%) (Auto) 0, Neutrophils # (Auto) 3.0, Lymphocytes # (Auto) 1.2, Monocytes # (Auto) 0.7, Eosinophils # (Auto) 0.4, Basophils # (Auto) 0.0, Prothrombin Time 13.9, INR Comment 1.0, Activated Partial Thromboplast Time 30, Sodium Level 140, Potassium Level 4.2, Chloride Level 105, Carbon Dioxide Level 23, Anion Gap 12, Blood Urea Nitrogen 26, Creatinine 1.11, Estimat Glomerular Filtration Rate > 60, BU N/Creatinine Ratio 23, Glucose Level 99, Calcium Level 10.2, Corrected Calcium 10.3, Magnesium Level 2.5, Total Bilirubin 0.4, Aspartate Amino Transf (AST/SGOT) 15, Alanine Aminotransferase (ALT/SGPT) 20, Alkaline Phosphatase 68, Total Creatine Kinase 139, Creatine Kinase MB 3.2, Myoglobin 134.3, Troponin I 0.104, B-Type Natriuretic Peptide 145.1, Total Protein 7.3, Albumin 3.9, Amylase Level 79, Lipase 66 07/20/19 02:05: Troponin I 0.105 07/20/19 05:27: Glucometer 162 07/20/19 06:14: White Blood Count 5.5, Red Blood Count 4.02, Hemoglobin 10.8, Hematocrit 33, Mean Corpuscular Volume 83, Mean Corpuscular Hemoglobin 27, Mean Corpuscular Hemoglobin Concent 33, Red Cell Distribution Width 14.2, Platelet Count 278, Mean Platelet Volume 10.6, Neutrophils (%) (Auto) 66, Lymphocytes (%) (Auto) 18, Monocytes (%) (Auto) 11, Eosinophils (%) (Auto) 5, Basophils (%) (Auto) 1, Neutrophils # (Auto) 3.6, Lymphocytes # (Auto) 1.0, Monocytes # (Auto) 0.6, Eosinophils # (Auto) 0.3, Basophils # (Auto) 0.0, Sodium Level 138, Potassium Level 4.2, Chloride Level 104, Carbon Dioxide Level 23, Anion Gap 11, Blood Urea Nitrogen 23, Creatinine 1.01, Estimat Glomerular Filtration Rate > 60, BUN/Creatinine Ratio 23, Glucose Level 165, Calcium Level 10.2, Corrected Calcium 10.4, Total Bilirubin 0.5, Aspartate Amino Transf (AST/SGOT) 16, Alanine Aminotransferase (ALT/SGPT) 19, Alkaline Phosphatase 67, Troponin I 0.095, Total Protein 7.1, Albumin 3.7, Triglycerides Level 97, Cholesterol Level 159, LDL Cholesterol Direct 73, VLDL Cholesterol 19, HDL Cholesterol 61 07/20/19 11:33: Glucometer 157 07/20/19 12:06: Glucometer 224 07/21/19 03:50: White Blood Count 5.3, Red Blood Count 3.84, Hemoglobin 10.4, Hematocrit 32, Mean Corpuscular Volume 83, Mean Corpuscular Hemoglobin 27, Mean Corpuscular Hemoglobin Concent 33, Red Cell Distribution Width 13.9, Platelet Count 269, Mean Platelet Volume 10.5, Prothrombin Time 14.6, INR Comment 1.1, Activated Partial Thromboplast Time 40, Sodium Level 133, Potassium Level 3.9, Chloride Level 102, Carbon Dioxide Level 20, Anion Gap 11, Blood Urea Nitrogen 15, Creatinine 0.90, Estimat Glomerular Filtration Rate > 60, BUN/Creatinine Ratio 17, Glucose Level 142, Calcium Level 9.6 07/21/19 11:18: Glucometer 229 07/22/19 03:15: White Blood Count 7.6, Red Blood Count 4.02, Hemoglobin 10.9, Hematocrit 32, Mean Corpuscular Volume 80, Mean Corpuscular Hemoglobin 27, Mean Corpuscular Hemoglobin Concent 34, Red Cell Distribution Width 13.8, Platelet Count 280, Mean Platelet Volume 10.2, Sodium Level 134, Potassium Level 3.6, Chloride Level 102, Carbon Dioxide Level 21, Anion Gap 11, Blood Urea Nitrogen 14, Creatinine 0.85, Estimat Glomerular Filtration Rate > 60, BUN/Creatinine Ratio 16, Glucose Level 126, Calcium Level 9.6 Discussion & Recommendations To follow-up with me in the office. To follow up with Dr. jennings increment manager Discharge Home Medications: Active Scripts Active Reported Tinactin (Tolnaftate) 150 Gm Medon TP Q48H APPLY TO LEFT FOOT AND TOES A and D Ointment (Vits A and D/White Pet/Lanolin) 42.5 Gm Oint...g. TP Q48H APPLY TO LEFT LOWER EXTREMITY Alprazolam 0.5 Mg Tablet 0.5 Mg PO BID PRN Glipizide 5 Mg Tablet 5 Mg PO DAILY Brilinta (Ticagrelor) 90 Mg Tablet 90 Mg PO BID Terazosin HCl 1 Mg Capsule 1 Mg PO BID Aspirin EC (Aspirin) 81 Mg Tablet.dr 81 Mg PO DAILY Isosorbide Mononitrate ER (Isosorbide Mononitrate) 60 Mg Tab 60 Mg PO DAILY Acetaminophen 325 Mg Tablet 650 Mg PO Q4H PRN TAKES 2 (325MG) TABLETS Darcie-Lanta Liquid (Mag Hydrox/Al Hydrox/Simeth) Unknown Strength Oral.susp 30 Ml PO Q4H PRN Bisacodyl 10 Mg Supp.rect 10 Mg RC UD PRN Amlodipine Besylate 5 Mg Tablet 5 Mg PO DAILY NOFITY MED IF SBP<90 OR >200 OR PULSE <50 Hydrocodone-Acetamin 7.5-325 (Hydrocodone/Acetaminophen) 1 Each Tablet 7.5-325 Mg PO TID PRN Carvedilol 25 Mg Tablet 25 Mg PO BID NOTIFY MD IF SBP<90 OR >200 OR PULSE <50 Hydralazine HCl 100 Mg Tablet 100 Mg PO TID Pantoprazole Sodium 20 Mg Tablet.dr 20 Mg PO DAILY Alprazolam 0.25 Mg Tablet 0.25 Mg PO HS Gabapentin 600 Mg Tablet 600 Mg PO BID Testosterone 75 Gm Gel..coding auditor 2 Pump TD DAILY Gabapentin 300 Mg Capsule 300 Mg PO 1800 Miralax (Polyethylene Glycol 3350) 17 Gm Powd.pack 17 Gm PO DAILY Calmoseptine Ointment (Menthol/Lanolin/Calamine/Znox) 71 Gm Oint TOP TID APPLY TO COCCYX Trazodone HCl 50 Mg Tablet 50 Mg PO HS Milk of Magnesia (Magnesium Hydroxide) 400 Mg/5 Ml Oral.susp 30 Ml PO DAILY PRN Toujeo Solostar (Insulin Glargine,Hum.rec.anlog) 300 Unit/1 Ml Insuln.pen 6 Unit SQ DAILY Magnesium Citrate 296 Ml Solution 296 Ml PO EVERY 4 DAYS PRN 1 BOTTLE EVERY 4 DAYS, IF NO BOWEL MOVEMENT, NEEDED FOR CONSTIPATION Lipitor (Atorvastatin Calcium) 10 Mg Tablet 10 Mg PO HS [place] 7.5-325 Tablet (Hydrocodone/Acetaminophen) 1 Each Tablet 1 Tab PO HS Baclofen 10 Mg Tablet 10 Mg PO Q8H PRN Colace (Docusate Sodium) 100 Mg Capsule 300 Mg PO HS TAKES 3 (100MG) CAPSULES Finasteride 5 Mg Tablet 5 Mg PO HS Bydureon Pen (Exenatide Microspheres) 2 Mg/0.65 Ml Pen.injctr 2 Mg SQ WEEK Instructions to patient/family Please see electronic discharge instructions given to patient. Clinical Quality Measures AMI/AHF: ASA po Prior to arrival: Yes (GIVEN BY EMS) DVT/VTE Risk/Contraindication: Risk Factor Score Per Nursin RFS Level Per Nursing on Admit: 4+=Very High Contraindications-Pharm: Other *list below* TERRI TAVAREZ DO Jul 23, 2019 07:33
== END 2019-07-22 11:40 | DRG 246 ==
LOC: EDUNIT# 20:09 → ER 20:10 → 4TH 20:15 → CSD 07-20 12:59
PROVIDERS: ADMIT Family Medicine; ATTEND Family Medicine
PROC: 027034Z Dilation of Coronary Artery, One Artery with Drug-eluting Intraluminal Device, Percutaneous Approach (ICD-10-PCS; principal; 2019-07-21)
PROC: 4A023N7 Measurement of Cardiac Sampling and Pressure, Left Heart, Percutaneous Approach (ICD-10-PCS; 2019-07-21)
PROC: B2111ZZ Fluoroscopy of Multiple Coronary Arteries using Low Osmolar Contrast (ICD-10-PCS; 2019-07-21)
PROC: B2151ZZ Fluoroscopy of Left Heart using Low Osmolar Contrast (ICD-10-PCS; 2019-07-21)
DX: I25.110 Atherosclerotic heart disease of native coronary artery with unstable angina pectoris (principal); I21.4 Non-ST elevation (NSTEMI) myocardial infarction; E87.1 Hypo-osmolality and hyponatremia; T82.856A Stenosis of peripheral vascular stent, initial encounter; I10 Essential (primary) hypertension; I34.0 Nonrheumatic mitral (valve) insufficiency; I70.8 Atherosclerosis of other arteries; I70.201 Unspecified atherosclerosis of native arteries of extremities, right leg; E78.00 Pure hypercholesterolemia, unspecified; E11.40 Type 2 diabetes mellitus with diabetic neuropathy, unspecified; I87.8 Other specified disorders of veins; D64.9 Anemia, unspecified; G47.30 Sleep apnea, unspecified; M19.91 Primary osteoarthritis, unspecified site; M54.9 Dorsalgia, unspecified; R13.10 Dysphagia, unspecified; F41.9 Anxiety disorder, unspecified; F32.9 Major depressive disorder, single episode, unspecified; K59.09 Other constipation; Z95.5 Presence of coronary angioplasty implant and graft; Z95.820 Peripheral vascular angioplasty status with implants and grafts; Z79.4 Long term (current) use of insulin; Z87.891 Personal history of nicotine dependence; Z79.899 Other long term (current) drug therapy; Z89.612 Acquired absence of left leg above knee
CPT/HCPCS: 36415; 71045; 80048; 80053; 80061; 82150; 82550; 82553; 82962; 83690; 83735; 83874; 83880; 84484; 85025; 85027; 85610; 85730; 87081; 93005; 93041; 93458; 96372; 96374; 96376

== ENCOUNTER 2019-07-24 07:58 | Observation (INO) | payer MEDICARE ==
[~2019-07-24] VITALS: Ht 175.2 cm; Wt 72.4 kg
[~2019-07-24 07:58] MED LIST changes: +ACET325T49 PO; +ALPR0.5T7 PO; +TOLN150S2 TP; +VITS42.53 TP
[2019-07-24] MEDS ORDERED: TICAGRELOR 90 MG TABLET (BRILINTA) PO ONE (08:15)
[2019-07-24] MEDS ORDERED: RT-ALBUTEROL/IPRATROPIUM 3 ML (DUONEB) VIAL INH ONE (08:15)
[2019-07-24] MEDS ORDERED: ASPIRIN 81 MG CHEW (CHILDREN'S ASA) PO ONE (08:15)
--- NOTE | 2019-07-24 08:33 | ED General ---
General Chief Complaint: Respiratory Problems Stated Complaint: SOA Nursing Triage Note: PT BROGUHT IN BY EMS FROM [facility] WITH COMPLAINT OF SOA. PER PT, STATES SOA WOKE HIM UP THIS MORNING. PT HAS BEEN HOSPITALIZED RECENTLY FOR NSTEMI AND HAD STENTS PLACED. DENIES CHEST PAIN AT THIS TIME. Nursing Sepsis Screen: No Definite Risk Source of Information: Patient, EMS, Old Records Exam Limitations: No Limitations History of Present Illness Date Seen by Provider: Jul 24, 2019 Time Seen by Provider: 07:59 Initial Comments This 73-year-old gentleman presents to the emergency room with complaints of shortness of breath that woke him up this morning. He denies any chest pain. He has history of coronary artery disease and had a stent placed after NSTEMI on July 19 of this year. He denies any history of COPD or respiratory problems. He is afebrile. He also complains of a full feeling in his chest and upper abdomen. Patient states he has not had a bowel movement since discharge from the hospital. He has not had his morning medications. Respirations are diminished. Cardiac catheter performed on July 19 also revealed mild global impairment of LV systolic function with an ejection fraction of 45-50 percent. Stent was placed in the LAD. There is also a distal stenosis in the LAD not amenable to intervention. Allergies and Home Medications Allergies Coded Allergies: Sulfa (Sulfonamide Antibiotics) (Verified Allergy, Severe, HIVES, 07/19/19) temazepam (Verified Allergy, Severe, 07/19/19) MENTAL CONFUSION hydromorphone (Verified Allergy, Unknown, 07/19/19) pravastatin (Verified Adverse Reaction, Severe, RASH, 07/19/19) clopidogrel (Verified Adverse Reaction, Unknown, 07/19/19) Home Medications Acetaminophen 325 Mg Tablet, 650 MG PO Q4H PRN for PAIN-MILD, (Reported) TAKES 2 (325MG) TABLETS Alprazolam 0.25 Mg Tablet, 0.25 MG PO HS, (Reported) Alprazolam 0.5 Mg Tablet, 0.5 MG PO BID PRN for ANXIETY, (Reported) Amlodipine Besylate 5 Mg Tablet, 5 MG PO DAILY, (Reported) NOFITY MED IF SBP<90 OR >200 OR PULSE <50 Aspirin 81 Mg Tablet.dr, 81 MG PO DAILY, (Reported) Atorvastatin Calcium 10 Mg Tablet, 10 MG PO HS, (Reported) Baclofen 10 Mg Tablet, 10 MG PO Q8H PRN for MUSCLE SPASMS, (Reported) Bisacodyl 10 Mg Supp.rect, 10 MG RC UD PRN for CONSTIPATION-4TH LINE, (Reported) Carvedilol 25 Mg Tablet, 25 MG PO BID, (Reported) NOTIFY MD IF SBP<90 OR >200 OR PULSE <50 Docusate Sodium 100 Mg Capsule, 300 MG PO HS, (Reported) TAKES 3 (100MG) CAPSULES Exenatide Microspheres 2 Mg/0.65 Ml Pen.injctr, 2 MG SQ WEEK, (Reported) Finasteride 5 Mg Tablet, 5 MG PO HS, (Reported) Gabapentin 300 Mg Capsule, 300 MG PO 1800, (Reported) Gabapentin 600 Mg Tablet, 600 MG PO BID, (Reported) Glipizide 5 Mg Tablet, 5 MG PO DAILY, (Reported) Hydralazine HCl 100 Mg Tablet, 100 MG PO TID, (Reported) Hydrocodone/Acetaminophen 1 Each Tablet, 1 TAB PO HS, (Reported) Hydrocodone/Acetaminophen 1 Each Tablet, 7.5-325 MG PO TID PRN for PAIN-MOD ERATE, (Reported) Insulin Glargine,Hum.rec.anlog 300 Unit/1 Ml Insuln.pen, 6 UNIT SQ DAILY, (Reported) Isosorbide Mononitrate 60 Mg Tab, 60 MG PO DAILY, (Reported) Mag Hydrox/Al Hydrox/Simeth Unknown Strength Oral.susp, 30 ML PO Q4H PRN for INDIGESTION, (Reported) Magnesium Citrate 296 Ml Solution, 296 ML PO EVERY 4 DAYS PRN for CONSTIPATION- 9TH LINE, (Reported) 1 BOTTLE EVERY 4 DAYS, IF NO BOWEL MOVEMENT, NEEDED FOR CONSTIPATION Magnesium Hydroxide 400 Mg/5 Ml Oral.susp, 30 ML PO DAILY PRN for CONSTIPATION- 7TH LINE, (Reported) Menthol/Lanolin/Calamine/Znox 71 Gm Oint, TOP TID, (Reported) APPLY TO COCCYX Pantoprazole Sodium 20 Mg Tablet.dr, 20 MG PO DAILY, (Reported) Polyethylene Glycol 3350 17 Gm Powd.pack, 17 GM PO DAILY, (Reported) Terazosin HCl 1 Mg Capsule, 1 MG PO BID, (Reported) Testosterone 75 Gm Gel..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 installer, 2 PUMP TD DAILY, (Reported) Ticagrelor 90 Mg Tablet, 90 MG PO BID, (Reported) Tolnaftate 150 Gm Carbon, TP Q48H, (Reported) APPLY TO LEFT FOOT AND TOES Trazodone HCl 50 Mg Tablet, 50 MG PO HS, (Reported) Vits A and D/White Pet/Lanolin 42.5 Gm Oint...g., TP Q48H, (Reported) APPLY TO LEFT LOWER EXTREMITY Patient Home Medication List Home Medication List Reviewed: Yes Review of Systems Review of Systems Constitutional: no symptoms reported EENTM: no symptoms reported Respiratory: see HPI Cardiovascular: see HPI Gastrointestinal: no symptoms reported Genitourinary: no symptoms reported Musculoskeletal: no symptoms reported Skin: no symptoms reported Psychiatric/Neurological: No Symptoms Reported Hematologic/Lymphatic: No Symptoms Reported Immunological/Allergic: no symptoms reported Past Xhhzwgn-Rtgnag-Pcqfhv Hx Past Med/Social Hx: Reviewed and Corrections made Patient Social History Alcohol Use: Denies Use Recreational Drug Use: No (Hx in ) Smoking Status: Former Smoker Type Used: Cigars Former Smoker, Quit: Oct 07, 1979 2nd Hand Smoke Exposure: No Recent Foreign Travel: No Contact w/Someone Who Travel: No Recent Infectious Disease Expo: No Recent Hopitalizations: No (Left AKA- [place]) Physical Abuse: No Sexual Abuse: No Mistreated: No Fear: No Seasonal Allergies Seasonal Allergies: No Past Medical History Surgeries: Yes Amputation (left AKA), Cardiac, Coronary Stent, Neurological, Orthopedic, Prostatectomy, Transurethral Resection, Vascular Surgery Respiratory: Yes Pneumonia, Sleep Apnea Currently Using CPAP: No Currently Using BIPAP: No Cardiac: Yes Chronic Edema/Swelling, Coronary Artery Disease, Heart Attack, High Cholesterol, Hypertension, Peripheral Vascular Neurological: Yes Neuropathy Reproductive Disorders: No Sexually Transmitted Disease: No HIV/AIDS: No Genitourinary: Yes (PROSTATE SURGERY) Benign Prostatic Hyperpl, Prostate Problems, UTI-Chronic Gastrointestinal: Yes Chronic Constipation Musculoskeletal: Yes Amputee, Degenerate Disk Disease, Arthritis, Chronic Back Pain Endocrine: Yes Diabetes, Insulin dep HEENT: Yes (Cataract- right eye; POOR DENTITION) Cataract, Dysphagia Loss of Vision: Denies Hearing Impairment: Denies Cancer: No Did You Recieve Any Treatments: No Psychosocial: Yes Sleep Difficulties, Anxiety, Depression Integumentary: Yes (GANGRENE AND INFECTION IN LEFT FOOT; CHRONIC WOUNDS TO RIGHT LEG AND FOOT. ) Recent Skin Changes Blood Disorders: No Adverse Reaction/Blood Tranf: No Family Medical History Abdominal aortic aneurysm G8 SISTER Alcoholism G8 BROTHER G8 BROTHER G8 BROTHER Arthritis G8 BROTHER G8 BROTHER G8 BROTHER G8 BROTHER G8 BROTHER G8 SISTER G8 SISTER Cardiovascular disease G8 SISTER Diabetes mellitus G8 BROTHER G8 BROTHER G8 BROTHER G8 SISTER G8 SISTER Drug abuse G8 BROTHER G8 BROTHER FH: COPD (chronic obstructive pulmonary disease) 19 FATHER FH: bladder cancer 19 MOTHER FH: prostate cancer 19 FATHER Headache disorder G8 BROTHER G8 BROTHER G8 BROTHER G8 BROTHER G8 BROTHER G8 BROTHER G8 BROTHER G8 BROTHER G8 SISTER G8 SISTER G8 SISTER G8 SISTER Hypercholesterolemia G8 BROTHER G8 BROTHER G8 BROTHER G8 BROTHER G8 BROTHER G8 SISTER G8 SISTER G8 SISTER G8 SISTER Hypertension 19 FATHER G8 BROTHER G8 BROTHER G8 BROTHER G8 BROTHER G8 BROTHER G8 BROTHER G8 BROTHER G8 BROTHER G8 SISTER G8 SISTER G8 SISTER G8 SISTER Thyroid disease Tuberculosis 19 FATHER Physical Exam Vital Signs Vital Signs - First Documented 07/24/19 08:00 Temp 37.3 Pulse 88 Resp 17 B/P (MAP) 178/92 (120) Pulse Ox 100 O2 Delivery Room Air Capillary Refill : Less Than 3 Seconds Height, Weight, BMI Height: 5'9.00" Weight: 139lbs. 0.0oz. 63.690789hp; 21.00 BMI Method:Stated General Appearance: No Apparent Distress, WD/WN HEENT: Normal ENT Inspection Respiratory: Lungs Clear, Normal Breath Sounds, No Accessory Muscle Use, No Respiratory Distress, Decreased Breath Sounds Cardiovascular: Normal Peripheral Pulses, Other (significant pitting lower extremity edema of the right lower extremity, left leg amputation) Gastrointestinal: Normal Bowel Sounds, Non Tender, Soft, Distended (mildly distended but still soft to palpation), Other Extremity: Non Tender, Pedal Edema, Swelling Neurologic/Psychiatric: Alert, Oriented x3, No Motor/Sensory Deficits, Normal Mood/Affect, 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-XII Norm as Tested Skin: Normal Color, Warm/Dry Progress/Results/Core Measures Suspected Sepsis Recent Fever Within 48 Hours: No Infection Criteria Present: None New/Unexplained Altered Menta: No Sepsis Screen: No Definite Risk SIRS Temperature: Pulse: 88 Respiratory Rate: 17 Laboratory Tests 07/24/19 08:35: White Blood Count 5.6 Blood Pressure 178 /92 Mean: 120 Laboratory Tests 07/24/19 08:35: Creatinine 1.77H, INR Comment 1.0, Platelet Count 255, Total Bilirubin 0.4 Results/Orders Lab Results Laboratory Tests Test 07/24/19 08:35 07/24/19 10:07 Range/Units White Blood Count 5.6 4.3-11.0 10^3/uL Red Blood Count 3.64 L 4.35-5.85 10^6/uL Hemoglobin 9.9 L 13.3-17.7 G/DL Hematocrit 30 L 40-54 % Mean Corpuscular Volume 82 80-99 FL Mean Corpuscular Hemoglobin 27 25-34 PG Mean Corpuscular Hemoglobin Concent 33 32-36 G/DL Red Cell Distribution Width 14.4 10.0-14.5 % Platelet Count 255 130-400 10^3/uL Mean Platelet Volume 10.6 H 7.4-10.4 FL Neutrophils (%) (Auto) 66 42-75 % Lymphocytes (%) (Auto) 13 12-44 % Monocytes (%) (Auto) 14 H 0-12 % Eosinophils (%) (Auto) 7 0-10 % Basophils (%) (Auto) 0 0-10 % Neutrophils # (Auto) 3.7 1.8-7.8 X 10^3 Lymphocytes # (Auto) 0.7 L 1.0-4.0 X 10^3 Monocytes # (Auto) 0.8 0.0-1.0 X 10^3 Eosinophils # (Auto) 0.4 H 0.0-0.3 10^3/uL Basophils # (Auto) 0.0 0.0-0.1 10^3/uL Prothrombin Time 13.8 12.2-14.7 SEC INR Comment 1.0 0.8-1.4 Activated Partial Thromboplast Time 29 24-35 SEC Sodium Level 130 L 135-145 MMOL/L Potassium Level 4.9 3.6-5.0 MMOL/L Chloride Level 99 98-107 MMOL/L Carbon Dioxide Level 22 21-32 MMOL/L Anion Gap 9 5-14 MMOL/L Blood Urea Nitrogen 38 H 7-18 MG/DL Creatinine 1.77 H 0.60-1.30 MG/DL Estimat Glomerular Filtration Rate 46 BUN/Creatinine Ratio 21 Glucose Level 139 H 70-105 MG/DL Calcium Level 9.4 8.5-10.1 MG/DL Corrected Calcium 9.8 8.5-10.1 MG/DL Magnesium Level 3.4 H 1.6-2.4 MG/DL Total Bilirubin 0.4 0.1-1.0 MG/DL Aspartate Amino Transf (AST/SGOT) 29 5-34 U/L Alanine Aminotransferase (ALT/SGPT) 37 0-55 U/L Alkaline Phosphatase 61 40-136 U/L Myoglobin 285.1 H 10.0-92.0 NG/ML Troponin I 0.867 *H <0.028 NG/ML C-Reactive Protein High Sensitivity 1.38 H 0.00-0.50 MG/DL B-Type Natriuretic Peptide 31.5 <100.0 PG/ML Total Protein 6.8 6.4-8.2 GM/DL Albumin 3.5 3.2-4.5 GM/DL Glucometer 129 H 70-110 MG/DL My Orders Orders - LESLEY ARAIZA MD Cbc With Automated Diff (07/24/19 08:05) Magnesium (07/24/19 08:05) Chest 1 View, Ap/Pa Only (07/24/19 08:05) Ekg Tracing (07/24/19 08:05) Cardiac Profile 1 (07/24/19 08:05) Comprehensive Metabolic Panel (07/24/19 08:05) Myoglobin Serum (07/24/19 08:05) Protime With Inr (07/24/19 08:05) Partial Thromboplastin Time (07/24/19 08:05) O2 (07/24/19 08:05) Monitor-Rhythm Ecg Trace Only (07/24/19 08:05) Lipid Panel (07/25/19 06:00) Ed Iv/Invasive Line Start (07/24/19 08:05) BNP (07/24/19 08:05) Hs C Reactive Protein (07/24/19 08:05) Albuterol/Ipra Inhalation Soln (Duoneb I (07/24/19 08:15) Svn Small Volume Nebulizer (07/24/19 08:05) Ticagrelor Tablet (Brilinta Tablet) (07/24/19 08:15) Aspirin Chewable Tablet (Baby Aspirin Ch (07/24/19 08:15) Abdomen, Flat & Upright/Decub (07/24/19 08:56) Ns Iv 500 Ml (Sodium Chloride 0.9%) (07/24/19 10:12) Medications Given in ED Current Medications Medications Dose Ordered Sig/Rosa Route Start Time Stop Time Status Last Admin Dose Admin Albuterol/ Ipratropium 3 ml ONCE ONCE INH 07/24/19 08:15 07/24/19 08:16 DC 07/24/19 08:20 3 ML Aspirin 324 mg ONCE ONCE PO 07/24/19 08:15 07/24/19 08:16 DC 07/24/19 08:29 324 MG Sodium Chloride 500 ml @ 0 mls/hr Q0M ONCE IV 07/24/19 10:12 07/24/19 10:13 DC 07/24/19 10:33 500 MLS/HR Ticagrelor 90 mg ONCE ONCE PO 07/24/19 08:15 07/24/19 08:16 DC 07/24/19 08:29 90 MG Vital Signs/I&O 07/24/19 07/24/19 08:00 08:20 Temp 37.3 Pulse 88 Resp 17 B/P (MAP) 178/92 (120) Pulse Ox 100 100 O2 Delivery Room Air Room Air Capillary Refill : Less Than 3 Seconds Blood Pressure Mean: 120 Progress Note #1: Time: 08:38 Progress Note Patient was seen and examined. Breath sounds were diminished. We will trial a DuoNeb treatment. Labs are pending. Progress Note #2: Time: 10:40 Progress Note Troponin was elevated. It had previously been trending downward before dismissal from the hospital. Case was discussed with Dr. Lewis who would like to patient admitted to the cardiac step down unit. I also discussed the case with Dr. Tavarez. I will start hydration for treatment of the acute kidney injury with a 500 mL normal saline bolus in the ER. A maintenance rate of normal saline will be continued on the stepdown unit. Aspirin and Brilinta were given in the ER. Dr. Lewis would like his other home medications continued. MiraLAX was ordered for treatment of constipation. Patient was somnolent during his ER stay. Fingerstick blood sugar was 129. Patient did awaken and was conversational with stimulation. ECG Initial ECG Impression Date: Jul 24, 2019 Initial ECG Impression Time: 08:00 Initial ECG Rate: 86 Initial ECG Rhythm: Normal Sinus Initial ECG Intervals: Normal Initial ECG Impression: Normal Comment Normal sinus rhythm with no ST elevation or depression. LVH with secondary repolarization abnormality. No abnormal intervals. Diagnostic Imaging Diagonstic Imaging: Xray Plain Films/CT/US/NM/MRI: chest Comments Chest x-ray viewed by me and report reviewed. See report below: NAME: ARLIN CANCINO [facility] REC#: [id number] PT STATUS: REG ER : 1945 PHYSICIAN: LESLEY ARAIZA MD ADMIT DATE: 07/24/19/ER Draft Date of Exam:07/24/19 CHEST 1 VIEW, AP/PA ONLY INDICATION: Shortness of air, recent myocardial infarction with stent placement.. TECHNIQUE: Single view chest 8:27 AM. CORRELATION STUDY: 07/20/2019 FINDINGS: Heart size is stable. Vasculature does appear to be slightly increased from prior study. Zones of atelectasis about both lung bases appears slightly more prominent particularly at the left lung base. Likely development of small left pleural effusion. IMPRESSION: 1. Vasculature is increased from prior study could be reflective of early fluid overload/failure. 2. Bibasilar areas of atelectasis persisting appearing slightly increased at the left along with development of small left pleural effusion. Dictated on workstation # [id number] Dict: 07/24/19 0833 Trans: 07/24/19 0839 [facility] [id number] Interpreted by: AMRIK ROBLES DO Diagonstic Imaging: Xray Plain Films/CT/US/NM/MRI: abdomen, pelvis Comments Abdominal x-rays viewed by me and report reviewed. See report below: NAME: ARLIN CANCINO [facility] REC#: [id number] PT STATUS: REG ER : 1945 PHYSICIAN: LESLEY ARAIZA MD ADMIT DATE: 07/24/19/ER Draft Date of Exam:07/24/19 ABDOMEN, FLAT & UPRIGHT/DECUB INDICATION: Shortness of air COMPARISON: 02/26/2019 TECHNIQUE: 2 radiographs of the abdomen dated 07/24/2019. FINDINGS: Vascular stent is noted overlying left inguinal region. Surgical clips are also present in the left inguinal region. Additional vascular stent is identified within the upper pelvis, just to the left of midline. Mild bibasilar interstitial opacities are suggested, though this is not optimally seen as these are radiographs of the abdomen. Significant amount of stool is noted throughout the colon, including extending into the rectal vault. No dilated loops of small bowel. No differential air-fluid levels. No free air. Scattered vascular calcifications. Scattered osseous degenerative changes without acute osseous abnormality. IMPRESSION: Moderate amount of stool throughout the colon, which may relate to constipation. Poorly visualized, there is suggestion of mild bibasilar atelectasis and/or pneumonitis. Additional postsurgical and chronic findings as above. Dictated on workstation # [id number] Dict: 07/24/19 0943 Trans: 07/24/19 0948 [facility] [id number] Interpreted by: ANDRAE BARRAZA MD Departure Communication (Admissions) Time/Spoke to Admitting Phy: 10:15 Dr. Tavarez Time/Spoke to Consulting Phy: 10:10 Dr. Lewis Impression Primary Impression: Acute kidney injury Additional Impressions: Dyspnea Qualified Codes: R06.00 - Dyspnea, unspecified Elevated troponin Coronary artery disease Qualified Codes: I25.10 - Atherosclerotic heart disease of [place] coronary artery without angina pectoris Constipation Qualified Codes: K59.00 - Constipation, unspecified Disposition: ADMITTED INPATIENT Condition: Improved Admissions Decision to Admit Reason: Admit from ER (General) Decision to Admit/Date: Jul 24, 2019 Time/Decision to Admit Time: 10:00 Departure-Patient Inst. Referrals: TERRI TAVAREZ DO (PCP/Family) Primary Care Physician LESLEY ARAIZA MD Jul 24, 2019 08:33
--- NOTE | 2019-07-24 08:40 | Diagnostic Imaging Report ---
INDICATION: Shortness of air, recent myocardial infarction with stent placement.. TECHNIQUE: Single view chest 8:27 AM. CORRELATION STUDY: 07/20/2019 FINDINGS: Heart size is stable. Vasculature does appear to be slightly increased from prior study. Zones of atelectasis about both lung bases appears slightly more prominent particularly at the left lung base. Likely development of small left pleural effusion. IMPRESSION: 1. Vasculature is increased from prior study could be reflective of early fluid overload/failure. 2. Bibasilar areas of atelectasis persisting appearing slightly increased at the left along with development of small left pleural effusion. Dictated by: Dictated on workstation # [id number]
[2019-07-24 08:47] LABS: BASOPHILS % (AUTO) 0 % (0-10); EOSINOPHILS # (AUTO) 0.4 10^3/uL (0.0-0.3); EOSINOPHILS % (AUTO) 7 % (0-10); HEMATOCRIT 30 % (40-54); HEMOGLOBIN 9.9 G/DL (13.3-17.7); LYMPHOCYTES # (AUTO) 0.7 X 10^3 (1.0-4.0); LYMPHOCYTES % (AUTO) 13 % (12-44); MEAN CORPUSCULAR HEMOGLOBIN 27 PG (25-34); MEAN CORPUSCULAR HGB CONC 33 G/DL (32-36); MEAN CORPUSCULAR VOLUME 82 FL (80-99); MEAN PLATELET VOLUME 10.6 FL (7.4-10.4); MONOCYTES # (AUTO) 0.8 X 10^3 (0.0-1.0); MONOCYTES % (AUTO) 14 % (0-12); NEUTROPHILS # (AUTO) 3.7 X 10^3 (1.8-7.8); NEUTROPHILS % (AUTO) 66 % (42-75); PLATELET COUNT 255 10^3/uL (130-400); RED CELL DISTRIBUTION WIDTH 14.4 % (10.0-14.5); WHITE BLOOD COUNT 5.6 10^3/uL (4.3-11.0)
[2019-07-24 09:02] LABS: PROTHROMBIN TIME PATIENT 13.8 SEC (12.2-14.7)
--- NOTE | 2019-07-24 09:15 | NUR ---
DAUGHTER STATES DR MCKNIGHT CHANGED SAUL BUTTON YESTERDAY
[2019-07-24 09:19] LABS: ALBUMIN 3.5 GM/DL (3.2-4.5); BILIRUBIN,TOTAL 0.4 MG/DL (0.1-1.0); CALCIUM 9.4 MG/DL (8.5-10.1); CREATININE SERUM 1.77 MG/DL (0.60-1.30); MAGNESIUM 3.4 MG/DL (1.6-2.4); POTASSIUM 4.9 MMOL/L (3.6-5.0); TOTAL PROTEIN 6.8 GM/DL (6.4-8.2)
--- NOTE | 2019-07-24 09:49 | Diagnostic Imaging Report ---
INDICATION: Shortness of air COMPARISON: 02/26/2019 TECHNIQUE: 2 radiographs of the abdomen dated 07/24/2019. FINDINGS: Vascular stent is noted overlying left inguinal region. Surgical clips are also present in the left inguinal region. Additional vascular stent is identified within the upper pelvis, just to the left of midline. Mild bibasilar interstitial opacities are suggested, though this is not optimally seen as these are radiographs of the abdomen. Significant amount of stool is noted throughout the colon, including extending into the rectal vault. No dilated loops of small bowel. No differential air-fluid levels. No free air. Scattered vascular calcifications. Scattered osseous degenerative changes without acute osseous abnormality. IMPRESSION: Moderate amount of stool throughout the colon, which may relate to constipation. Poorly visualized, there is suggestion of mild bibasilar atelectasis and/or pneumonitis. Additional postsurgical and chronic findings as above. Dictated by: Dictated on workstation # [id number]
[2019-07-24] MEDS ORDERED: NS IV 500 ML 500 ML IV ONE (10:12)
--- NOTE | 2019-07-24 10:48 | Consultation-Cardiology ---
HPI-Cardiology Cardiology Consultation: Date of Consultation 07/24/19 Time Seen by a Provider: 10:30 Date of Admission 07-24-19 Attending Physician Los Larose DO Admitting Physician Los Larose DO Consulting Physician JOE JORDAN HPI: Chief Complaint: Dyspnea Mr. Muñiz is a 73 year old male whom I have seen in the ED. He currently resides at [facility]. He reports he woke up this morning with a sudden onset of dyspnea. He reports he was unable to sit up. He reports weakness. He states he has not missed any medications. He reports a feeling of not being able to catch his breath. He reports pressure on his chest. He denies any c/o diaphoresis. He denies any syncope, near syncope, palpitations. He denies any n/v/d. He denies any fever or chills. He reports his SOB currently is somewhat better than before. His spouse is at the bedside. Review of Systems-Cardiology Review of Systems Constitutional: No chills, No fever; malaise Eyes: No vision change Ears/Nose/Throat: No epistaxis, No recent hearing loss Respiratory: As described under HPI Cardiovascular: As described under HPI Gastrointestinal: No constipation, No diarrhea, No nausea, No vomiting Genitourinary: No dysuria, No hematuria Musculoskeletal: no symptoms reported Skin: No rash on exposed areas, No ulcerations on exposed areas Psychiatric/Neurological: No seizure, No focal weakness, No syncope Hematologic: No bleeding abnormalities SYX-Ptcgmw-Wfgpep Hx Patient Social History Alcohol Use: Denies Use Recreational Drug Use: No (Hx in ) Smoking Status: Former Smoker Former smoker/When Quit: Dec 29, 1979 Type Used: Cigars 2nd Hand Smoke Exposure: No Recent Foreign Travel: No Recent Infectious Disease Expo: No Hospitalization with Isolation: Denies Past Medical History PMH As described under Assessment. Family Medical History Family Medical History: Does not report fam h/o early CAD or SCD Family History: Abdominal aortic aneurysm G8 SISTER Alcoholism G8 BROTHER G8 BROTHER G8 BROTHER Arthritis G8 BROTHER G8 BROTHER G8 BROTHER G8 BROTHER G8 BROTHER G8 SISTER G8 SISTER Cardiovascular disease G8 SISTER Diabetes mellitus G8 BROTHER G8 BROTHER G8 BROTHER G8 SISTER G8 SISTER Drug abuse G8 BROTHER G8 BROTHER FH: COPD (chronic obstructive pulmonary disease) 19 FATHER FH: bladder cancer 19 MOTHER FH: prostate cancer 19 FATHER Headache disorder G8 BROTHER G8 BROTHER G8 BROTHER G8 BROTHER G8 BROTHER G8 BROTHER G8 BROTHER G8 BROTHER G8 SISTER G8 SISTER G8 SISTER G8 SISTER Hypercholesterolemia G8 BROTHER G8 BROTHER G8 BROTHER G8 BROTHER G8 BROTHER G8 SISTER G8 SISTER G8 SISTER G8 SISTER Hypertension 19 FATHER G8 BROTHER G8 BROTHER G8 BROTHER G8 BROTHER G8 BROTHER G8 BROTHER G8 BROTHER G8 BROTHER G8 SISTER G8 SISTER G8 SISTER G8 SISTER Thyroid disease Tuberculosis 19 FATHER Allergies and Home Medications Allergies Coded Allergies: Sulfa (Sulfonamide Antibiotics) (Verified Allergy, Severe, HIVES, 07/19/19) temazepam (Verified Allergy, Severe, 07/19/19) MENTAL CONFUSION hydromorphone (Verified Allergy, Unknown, 07/19/19) pravastatin (Verified Adverse Reaction, Severe, RASH, 07/19/19) clopidogrel (Verified Adverse Reaction, Unknown, 07/19/19) Home Medications Acetaminophen 325 Mg Tablet, 650 MG PO Q4H PRN for PAIN-MILD, (Reported) TAKES 2 (325MG) TABLETS Alprazolam 0.25 Mg Tablet, 0.25 MG PO HS, (Reported) Alprazolam 0.5 Mg Tablet, 0.5 MG PO BID PRN for ANXIETY, (Reported) Amlodipine Besylate 5 Mg Tablet, 5 MG PO DAILY, (Reported) NOFITY MED IF SBP<90 OR >200 OR PULSE <50 Aspirin 81 Mg Tablet.dr, 81 MG PO DAILY, (Reported) Atorvastatin Calcium 10 Mg Tablet, 10 MG PO HS, (Reported) Baclofen 10 Mg Tablet, 10 MG PO Q8H PRN for MUSCLE SPASMS, (Reported) Bisacodyl 10 Mg Supp.rect, 10 MG RC UD PRN for CONSTIPATION-4TH LINE, (Reported) Carvedilol 25 Mg Tablet, 25 MG PO BID, (Reported) NOTIFY MD IF SBP<90 OR >200 OR PULSE <50 Docusate Sodium 100 Mg Capsule, 300 MG PO HS, (Reported) TAKES 3 (100MG) CAPSULES Exenatide Microspheres 2 Mg/0.65 Ml Pen.injctr, 2 MG SQ WEEK, (Reported) Finasteride 5 Mg Tablet, 5 MG PO HS, (Reported) Gabapentin 300 Mg Capsule, 300 MG PO 1800, (Reported) Gabapentin 600 Mg Tablet, 600 MG PO BID, (Reported) Glipizide 5 Mg Tablet, 5 MG PO DAILY, (Reported) Hydralazine HCl 100 Mg Tablet, 100 MG PO TID, (Reported) Hydrocodone/Acetaminophen 1 Each Tablet, 1 TAB PO HS, (Reported) Hydrocodone/Acetaminophen 1 Each Tablet, 7.5-325 MG PO TID PRN for PAIN- MODERATE, (Reported) Insulin Glargine,Hum.rec.anlog 300 Unit/1 Ml Insuln.pen, 6 UNIT SQ DAILY, (Reported) Isosorbide Mononitrate 60 Mg Tab, 90 MG PO DAILY Prescribed by: KAM BILLINGS on 07/26/19 1333 Mag Hydrox/Al Hydrox/Simeth Unknown Strength Oral.susp, 30 ML PO Q4H PRN for INDIGESTION, (Reported) Magnesium Citrate 296 Ml Solution, 296 ML PO EVERY 4 DAYS PRN for CONSTIPATION- 9TH LINE, (Reported) 1 BOTTLE EVERY 4 DAYS, IF NO BOWEL MOVEMENT, NEEDED FOR CONSTIPATION Magnesium Hydroxide 400 Mg/5 Ml Oral.susp, 30 ML PO DAILY PRN for CONSTIPATION- 7TH LINE, (Reported) Menthol/Lanolin/Calamine/Znox 71 Gm Oint, TOP BID, (Reported) APPLY TO COCCYX Pantoprazole Sodium 20 Mg Tablet.dr, 20 MG PO DAILY, (Reported) Polyethylene Glycol 3350 17 Gm Powd.pack, 17 GM PO DAILY, (Reported) Terazosin HCl 1 Mg Capsule, 1 MG PO BID, (Reported) Testosterone 75 Gm Gel..credit correspondence clerk, 2 PUMP TD DAILY, (Reported) Ticagrelor 90 Mg Tablet, 90 MG PO BID, (Reported) Tolnaftate 150 Gm [place], TP Q48H, (Reported) APPLY TO LEFT FOOT AND TOES Trazodone HCl 50 Mg Tablet, 50 MG PO HS, (Reported) Vits A and D/White Pet/Lanolin 42.5 Gm Oint...g., TP Q48H, (Reported) APPLY TO LEFT LOWER EXTREMITY Physical Exam-Cardiology Physical Exam Vital Signs/I&O Capillary Refill : Less Than 3 Seconds Constitutional: AAO x 3, well-developed, well-nourished HEENT: PERRL, hearing is well preserved, oral hygience is good Neck: No carotid bruit; carotid pulses are 2 + bilaterally Respiratory: No accessory muscle use, No respiratory distress; chest expansion is symmetric, chest is bilaterally symmetric, other (good air entry) Cardiovascular: regular rate-rhythm; No JVD; S1 and S2, systolic murmur Gastrointestinal: No tender; soft, round, audible bowel sounds Extremities: other (mod RLE swelling, L AKA) Neurologic/Psychiatric: grossly intact (moves extremities) Skin: No rash, No ulcerations Data Review Labs Radiology NAME: ARLIN MUÑIZ [facility] REC#: [id number] PT STATUS: REG ER : 1945 PHYSICIAN: LESLEY ARAIZA MD ADMIT DATE: 07/24/19/ER Draft Date of Exam:07/24/19 CHEST 1 VIEW, AP/PA ONLY INDICATION: Shortness of air, recent myocardial infarction with stent placement.. TECHNIQUE: Single view chest 8:27 AM. CORRELATION STUDY: 07/20/2019 FINDINGS: Heart size is stable. Vasculature does appear to be slightly increased from prior study. Zones of atelectasis about both lung bases appears slightly more prominent particularly at the left lung base. Likely development of small left pleural effusion. IMPRESSION: 1. Vasculature is increased from prior study could be reflective of early fluid overload/failure. 2. Bibasilar areas of atelectasis persisting appearing slightly increased at the left along with development of small left pleural effusion. Dictated on workstation # [id number] Dict: 07/24/19 0833 Trans: 07/24/19 0839 [facility] [phone] Interpreted by: AMRIK ROBLES DO Electronically signed by: NAME: ARLIN MUÑIZ [facility] REC#: [id number] PT STATUS: REG ER : 1945 PHYSICIAN: LESLEY ARAIZA MD ADMIT DATE: 07/24/19/ER Draft Date of Exam:07/24/19 ABDOMEN, FLAT & UPRIGHT/DECUB INDICATION: Shortness of air COMPARISON: 02/26/2019 TECHNIQUE: 2 radiographs of the abdomen dated 07/24/2019. FINDINGS: Vascular stent is noted overlying left inguinal region. Surgical clips are also present in the left inguinal region. Additional vascular stent is identified within the upper pelvis, just to the left of midline. Mild bibasilar interstitial opacities are suggested, though this is not optimally seen as these are radiographs of the abdomen. Significant amount of stool is noted throughout the colon, including extending into the rectal vault. No dilated loops of small bowel. No differential air-fluid levels. No free air. Scattered vascular calcifications. Scattered osseous degenerative changes without acute osseous abnormality. IMPRESSION: Moderate amount of stool throughout the colon, which may relate to constipation. Poorly visualized, there is suggestion of mild bibasilar atelectasis and/or pneumonitis. Additional postsurgical and chronic findings as above. Dictated on workstation # [id number] Dict: 07/24/19 0943 Trans: 07/24/19 0948 [facility] [phone] Interpreted by: ANDRAE BARRAZA MD Electronically signed by: ECG Impression ECG Initial ECG Rhythm: Normal Sinus A/P-Cardiology Assessment/Admission Diagnosis NSTEMI Acute renal insufficiency - possible contrast nephropathy Coronary artery disease. Last card cath on 07/21/19 showed 80% mid to distal LAD stenosis that was successfully stented with Crescent 2.0 x 18 mm stent; very distal LAD had 80% stenosis but is of too small a caliber for intervention; there were patent mid RCA stents (drug-eluting 2.5 x 14 and 2.0 x 30) placed on 07/12/[address] Grant; LVEF 45-50%, posterobasal akinesis Echo of 03/23/19: LVEF 50-55%, mild MR, mild to mod LA enlargement, RVSP 37 mmHg Peripheral arterial disease. Has had L AKA. Noted to have occluded R SFA at time of card cath of 07/21/19 (occlusion within a previously stented segment) Hypertension, labile blood pressure Hyperlipidemia Diabetes mellitus Discussion and Recomendations Complex management issue NSTEMI Recent cardiac cath with coronary intervention as noted above - continue dual antiplatelet d/t recent coronary stenting Acute renal insufficiency possibly in some part d/t contrast nephropathy - give IVF Continue antihypertensive regimen Not suitable candidate for ROSAMARIA or ARB d/t acute renal insufficiency Monitor lab Further recs will be based on his hospital course We would like to thank medical services for this consult JOE FRAZIER Jul 24, 2019 10:48
[2019-07-24] MEDS ORDERED: LIDOCAINE UROJET 2% GEL 10 ML PKG ONE (10:52)
[2019-07-24 11:15] VITALS: BP 175/89
[2019-07-24] MEDS ORDERED: CATHETER FLUSH 10 ML SYR IV PRN (11:30)
--- NOTE | 2019-07-24 11:47 | NUR ---
UPDATED MED REC WITH PHYSICIAN VISIT FORM FROM [facility].
[2019-07-24 12:00] VITALS: BP 157/74
--- NOTE | 2019-07-24 12:20 | History & Physical ---
History of Present Illness History of Present Illness Reason for visit/HPI patient resting comfortably in sleep. Spoke to . Patient exhausted. Patient short of air this morning when he woke up. Patient having chest pressure. Patient recently had 2 cardiac catheter was stents put in each time. Patient's history of CAD. Patient has acute renal insufficiency now. Troponin is elevated Date of Admission Jul 24, 2019 at 10:18 Time Seen by a Provider: 12:16 I consulted on this patient on 07/24/19 12:16 Attending Physician Los Tavarez DO Admitting Physician Los Tavarez DO Consult Allergies and Home Medications Allergies Coded Allergies: Sulfa (Sulfonamide Antibiotics) (Verified Allergy, Severe, HIVES, 07/19/19) temazepam (Verified Allergy, Severe, 07/19/19) MENTAL CONFUSION hydromorphone (Verified Allergy, Unknown, 07/19/19) pravastatin (Verified Adverse Reaction, Severe, RASH, 07/19/19) clopidogrel (Verified Adverse Reaction, Unknown, 07/19/19) Home Medications Acetaminophen 325 Mg Tablet, 650 MG PO Q4H PRN for PAIN-MILD, (Reported) TAKES 2 (325MG) TABLETS Alprazolam 0.25 Mg Tablet, 0.25 MG PO HS, (Reported) Alprazolam 0.5 Mg Tablet, 0.5 MG PO BID PRN for ANXIETY, (Reported) Amlodipine Besylate 5 Mg Tablet, 5 MG PO DAILY, (Reported) NOFITY MED IF SBP<90 OR >200 OR PULSE <50 Aspirin 81 Mg Tablet.dr, 81 MG PO DAILY, (Reported) Atorvastatin Calcium 10 Mg Tablet, 10 MG PO HS, (Reported) Baclofen 10 Mg Tablet, 10 MG PO Q8H PRN for MUSCLE SPASMS, (Reported) Bisacodyl 10 Mg Supp.rect, 10 MG RC UD PRN for CONSTIPATION-4TH LINE, (Reported) Carvedilol 25 Mg Tablet, 25 MG PO BID, (Reported) NOTIFY MD IF SBP<90 OR >200 OR PULSE <50 Docusate Sodium 100 Mg Capsule, 300 MG PO HS, (Reported) TAKES 3 (100MG) CAPSULES Exenatide Microspheres 2 Mg/0.65 Ml Pen.injctr, 2 MG SQ WEEK, (Reported) Finasteride 5 Mg Tablet, 5 MG PO HS, (Reported) Gabapentin 300 Mg Capsule, 300 MG PO 1800, (Reported) Gabapentin 600 Mg Tablet, 600 MG PO BID, (Reported) Glipizide 5 Mg Tablet, 5 MG PO DAILY, (Reported) Hydralazine HCl 100 Mg Tablet, 100 MG PO TID, (Reported) Hydrocodone/Acetaminophen 1 Each Tablet, 1 TAB PO HS, (Reported) Hydrocodone/Acetaminophen 1 Each Tablet, 7.5-325 MG PO TID PRN for PAIN- MODERATE, (Reported) Insulin Glargine,Hum.rec.anlog 300 Unit/1 Ml Insuln.pen, 6 UNIT SQ DAILY, (Re ported) Isosorbide Mononitrate 60 Mg Tab, 60 MG PO DAILY, (Reported) Mag Hydrox/Al Hydrox/Simeth Unknown Strength Oral.susp, 30 ML PO Q4H PRN for INDIGESTION, (Reported) Magnesium Citrate 296 Ml Solution, 296 ML PO EVERY 4 DAYS PRN for CONSTIPATION- 9TH LINE, (Reported) 1 BOTTLE EVERY 4 DAYS, IF NO BOWEL MOVEMENT, NEEDED FOR CONSTIPATION Magnesium Hydroxide 400 Mg/5 Ml Oral.susp, 30 ML PO DAILY PRN for CONSTIPATION- 7TH LINE, (Reported) Menthol/Lanolin/Calamine/Znox 71 Gm Oint, TOP BID, (Reported) APPLY TO COCCYX Pantoprazole Sodium 20 Mg Tablet.dr, 20 MG PO DAILY, (Reported) Polyethylene Glycol 3350 17 Gm Powd.pack, 17 GM PO DAILY, (Reported) Terazosin HCl 1 Mg Capsule, 1 MG PO BID, (Reported) Testosterone 75 Gm Gel.carbide tool die maker, 2 PUMP TD DAILY, (Reported) Ticagrelor 90 Mg Tablet, 90 MG PO BID, (Reported) Tolnaftate 150 Gm [place], TP Q48H, (Reported) APPLY TO LEFT FOOT AND TOES Trazodone HCl 50 Mg Tablet, 50 MG PO HS, (Reported) Vits A and D/White Pet/Lanolin 42.5 Gm Oint...g., TP Q48H, (Reported) APPLY TO LEFT LOWER EXTREMITY Patient Home Medication List Home Medication List Reviewed: Yes Past Agnocpj-Hkwpkv-Vecypu Hx Past Med/Social Hx: Reviewed and Corrections made Patient Social History Marrital Status: Employed/Student: retired Alcohol Use: Denies Use Recreational Drug Use: No (Hx in ) Smoking Status: Former Smoker Former Smoker, Quit: Oct 07, 1979 Type Used: Cigars 2nd Hand Smoke Exposure: No Recent Foreign Travel: No Contact w/other who traveled: No Recent Hopitalizations: No (Left AKA- [place]) Recent Infectious Disease Expo: No Seasonal Allergies Seasonal Allergies: No Past Medical History Surgeries: Amputation (left AKA), Cardiac, Coronary Stent, Neurological, Orthopedic, Prostatectomy, Transurethral Resection, Vascular Surgery Currently Using CPAP: No Currently Using BIPAP: No Cardiac: Chronic Edema/Swelling, Coronary Artery Disease, Heart Attack, High C holesterol, Hypertension, Peripheral Vascular Neurological: Neuropathy Reproductive: No Sexually Transmitted Disease: No HIV/AIDS: No Genitourinary: Benign Prostatic Hyperpl, Prostate Problems, UTI-Chronic Gastrointestinal: Chronic Constipation Musculoskeletal: Amputee, Degenerate Disk Disease, Arthritis, Chronic Back Pain Endocrine: Diabetes, Insulin dep HEENT: Cataract, Dysphagia Loss of Vision: Denies Hearing Impairment: Denies Did You Recieve Any Treatments: No Psychosocial: Sleep Difficulties, Anxiety, Depression Skin/Integumentary: Recent Skin Changes History of Blood Disorders: No Adverse Reaction to Blood Hernandez: No Family History Abdominal aortic aneurysm G8 SISTER Alcoholism G8 BROTHER G8 BROTHER G8 BROTHER Arthritis G8 BROTHER G8 BROTHER G8 BROTHER G8 BROTHER G8 BROTHER G8 SISTER G8 SISTER Cardiovascular disease G8 SISTER Diabetes mellitus G8 BROTHER G8 BROTHER G8 BROTHER G8 SISTER G8 SISTER Drug abuse G8 BROTHER G8 BROTHER FH: COPD (chronic obstructive pulmonary disease) 19 FATHER FH: bladder cancer 19 MOTHER FH: prostate cancer 19 FATHER Headache disorder G8 BROTHER G8 BROTHER G8 BROTHER G8 BROTHER G8 BROTHER G8 BROTHER G8 BROTHER G8 BROTHER G8 SISTER G8 SISTER G8 SISTER G8 SISTER Hypercholesterolemia G8 BROTHER G8 BROTHER G8 BROTHER G8 BROTHER G8 BROTHER G8 SISTER G8 SISTER G8 SISTER G8 SISTER Hypertension 19 FATHER G8 BROTHER G8 BROTHER G8 BROTHER G8 BROTHER G8 BROTHER G8 BROTHER G8 BROTHER G8 BROTHER G8 SISTER G8 SISTER G8 SISTER G8 SISTER Thyroid disease Tuberculosis 19 FATHER Review of Systems Constitutional: malaise, weakness EENTM: no symptoms reported Respiratory: dyspnea on exertion Cardiovascular: other (chest pressure) Gastrointestinal: no symptoms reported Genitourinary: no symptoms reported Physical Exam Vital Signs Vital Signs - First Documented 07/24/19 08:00 Temp 37.3 Pulse 88 Resp 17 B/P (MAP) 178/92 (120) Pulse Ox 100 O2 Delivery Room Air Capillary Refill : Less Than 3 Seconds Height, Weight, BMI Height: 5'9.00" Weight: 139lbs. 0.0oz. 63.977242sg; 23.32 BMI Method:Stated General Appearance: No Apparent Distress, WD/WN HEENT: Normal ENT Inspection Neck: Normal Inspection Respiratory: Lungs Clear, No Accessory Muscle Use, No Respiratory Distress Cardiovascular: Regular Rate, Rhythm, No Murmur Gastrointestinal: Non Tender, Soft Assessment/Plan Assessment and Plan dyspnea. Chest fullness. Elevated troponin. Acute renal insufficiency. Diabetes. Amputated above the knee 1 leg. Hyperlipidemia. Hypertension Admission Diagnosis Admission Status: Observation LOS TAVAREZ DO Jul 24, 2019 12:19
[2019-07-24] MEDS ORDERED: ACETAMINOPHEN 325 MG TABLET PO PRN (12:30)
[2019-07-24] MEDS ORDERED: MILK OF MAGNESIA 400 MG/5 ML 30 ML UDC PO PRN (12:30)
[2019-07-24] MEDS: NS IV 1000 ML 1,000 ML IV SCH ×2 (12:40→18:18)
[2019-07-24] MEDS: hydrALAZINE (APRESOLINE) 25 MG TAB PO SCH ×2 (14:16→22:41)
--- NOTE | 2019-07-24 15:43 | NUR ---
LAB IN ROOM TO DRAW BLOOD ON PATIENT AT THIS TIME. UNABLE TO GET BLOOD AFTER MULTIPLE ATTEMPTS, NOTIFIED DR. TAVAREZ OF INABILITY TO GET BLOOD, STATED OK TO WAIT ET ATTEMPT AT NEXT BLOOD DRAW.
[2019-07-24 16:00] VITALS: BP 157/67
[2019-07-24] MEDS ORDERED: HYDROcodone/APAP 7.5 MG/325 MG (LORTAB, LORCET PLUS) TABLET PO ONE (16:04)
[2019-07-24] MEDS: HYDROcodone/APAP 7.5 MG/325 MG (LORTAB, LORCET PLUS) TABLET PO PRN (16:18)
[2019-07-24] MEDS: inSUlin ASPART (NovoLOG) 1 UNIT/0.01 ML (CHARGE PER UNIT) SC SCH ×2 (16:18→20:54)
[2019-07-24] MEDS: GABAPENTIN 300 MG (NEURONTIN) CAP PO SCH (17:36)
--- NOTE | 2019-07-24 17:59 | Consultation-Cardiology ---
HPI-Cardiology Cardiology Consultation: Date of Consultation 07/24/19 Time Seen by a Provider: 17:15 Date of Admission Attending Physician Los Larose DO Admitting Physician Los Larose DO Consulting Physician ANTONIETA CHILDRESS MD, MA, FACP, FACC, FSCAI, CCDS HPI: Chief Complaint: CC: Shortness of breath, chest pressure HPI Mr. Muñiz is a 73 year old male whom I have seen in the ED. He currently resides at [facility]. He reports he woke up this morning with a sudden onset of dyspnea. He reports he was unable to sit up. He reports weakness. He states he has not missed any medications. He reports a feeling of not being able to catch his breath. He reports pressure on his chest: mild to mod, nearly continuous, non-radiating, w/o any aggravating or relieving factors, present intermittently for several months, lasting many hours at at time. He denies any c/o diaphoresis. He denies any syncope, near syncope, palpitations. He denies any n/v/d. He denies any fever or chills. He reports his SOB currently is somewhat better than before. His spouse is at the bedside. Review of Systems-Cardiology Review of Systems Constitutional: No chills, No fever; malaise Eyes: No vision change Ears/Nose/Throat: No epistaxis, No recent hearing loss Respiratory: As described under HPI Cardiovascular: As described under HPI Gastrointestinal: No constipation, No diarrhea, No nausea, No vomiting Genitourinary: No dysuria, No hematuria Musculoskeletal: no symptoms reported Skin: No rash on exposed areas, No ulcerations on exposed areas Psychiatric/Neurological: No seizure, No focal weakness, No syncope Hematologic: No bleeding abnormalities IMN-Vkueds-Fltvtr Hx Patient Social History Marrital Status: Employed/Student: retired Alcohol Use: Denies Use Recreational Drug Use: No (Hx in ) Smoking Status: Former Smoker Former smoker/When Quit: Dec 29, 1979 Type Used: Cigars 2nd Hand Smoke Exposure: No Recent Foreign Travel: No Recent Infectious Disease Expo: No Hospitalization with Isolation: Denies Past Medical History PMH As described under Assessment. Family Medical History Family Medical History: Does not report fam h/o early CAD or SCD Family History: Abdominal aortic aneurysm G8 SISTER Alcoholism G8 BROTHER G8 BROTHER G8 BROTHER Arthritis G8 BROTHER G8 BROTHER G8 BROTHER G8 BROTHER G8 BROTHER G8 SISTER G8 SISTER Cardiovascular disease G8 SISTER Diabetes mellitus G8 BROTHER G8 BROTHER G8 BROTHER G8 SISTER G8 SISTER Drug abuse G8 BROTHER G8 BROTHER FH: COPD (chronic obstructive pulmonary disease) 19 FATHER FH: bladder cancer 19 MOTHER FH: prostate cancer 19 FATHER Headache disorder G8 BROTHER G8 BROTHER G8 BROTHER G8 BROTHER G8 BROTHER G8 BROTHER G8 BROTHER G8 BROTHER G8 SISTER G8 SISTER G8 SISTER G8 SISTER Hypercholesterolemia G8 BROTHER G8 BROTHER G8 BROTHER G8 BROTHER G8 BROTHER G8 SISTER G8 SISTER G8 SISTER G8 SISTER Hypertension 19 FATHER G8 BROTHER G8 BROTHER G8 BROTHER G8 BROTHER G8 BROTHER G8 BROTHER G8 BROTHER G8 BROTHER G8 SISTER G8 SISTER G8 SISTER G8 SISTER Thyroid disease Tuberculosis 19 FATHER Allergies and Home Medications Allergies Coded Allergies: Sulfa (Sulfonamide Antibiotics) (Verified Allergy, Severe, HIVES, 07/19/19) temazepam (Verified Allergy, Severe, 07/19/19) MENTAL CONFUSION hydromorphone (Verified Allergy, Unknown, 07/19/19) pravastatin (Verified Adverse Reaction, Severe, RASH, 07/19/19) clopidogrel (Verified Adverse Reaction, Unknown, 07/19/19) Home Medications Acetaminophen 325 Mg Tablet, 650 MG PO Q4H PRN for PAIN-MILD, (Reported) TAKES 2 (325MG) TABLETS Alprazolam 0.25 Mg Tablet, 0.25 MG PO HS, (Reported) Alprazolam 0.5 Mg Tablet, 0.5 MG PO BID PRN for ANXIETY, (Reported) Amlodipine Besylate 5 Mg Tablet, 5 MG PO DAILY, (Reported) NOFITY MED IF SBP<90 OR >200 OR PULSE <50 Aspirin 81 Mg Tablet.dr, 81 MG PO DAILY, (Reported) Atorvastatin Calcium 10 Mg Tablet, 10 MG PO HS, (Reported) Baclofen 10 Mg Tablet, 10 MG PO Q8H PRN for MUSCLE SPASMS, (Reported) Bisacodyl 10 Mg Supp.rect, 10 MG RC UD PRN for CONSTIPATION-4TH LINE, (Reported) Carvedilol 25 Mg Tablet, 25 MG PO BID, (Reported) NOTIFY MD IF SBP<90 OR >200 OR PULSE <50 Docusate Sodium 100 Mg Capsule, 300 MG PO HS, (Reported) TAKES 3 (100MG) CAPSULES Exenatide Microspheres 2 Mg/0.65 Ml Pen.injctr, 2 MG SQ WEEK, (Reported) Finasteride 5 Mg Tablet, 5 MG PO HS, (Reported) Gabapentin 300 Mg Capsule, 300 MG PO 1800, (Reported) Gabapentin 600 Mg Tablet, 600 MG PO BID, (Reported) Glipizide 5 Mg Tablet, 5 MG PO DAILY, (Reported) Hydralazine HCl 100 Mg Tablet, 100 MG PO TID, (Reported) Hydrocodone/Acetaminophen 1 Each Tablet, 1 TAB PO HS, (Reported) Hydrocodone/Acetaminophen 1 Each Tablet, 7.5-325 MG PO TID PRN for PAIN- MODERATE, (Reported) Insulin Glargine,Hum.rec.anlog 300 Unit/1 Ml Insuln.pen, 6 UNIT SQ DAILY, (Reported) Isosorbide Mononitrate 60 Mg Tab, 60 MG PO DAILY, (Reported) Mag Hydrox/Al Hydrox/Simeth Unknown Strength Oral.susp, 30 ML PO Q4H PRN for INDIGESTION, (Reported) Magnesium Citrate 296 Ml Solution, 296 ML PO EVERY 4 DAYS PRN for CONSTIPATION- 9TH LINE, (Reported) 1 BOTTLE EVERY 4 DAYS, IF NO BOWEL MOVEMENT, NEEDED FOR CONSTIPATION Magnesium Hydroxide 400 Mg/5 Ml Oral.susp, 30 ML PO DAILY PRN for CONSTIPATION- 7TH LINE, (Reported) Menthol/Lanolin/Calamine/Znox 71 Gm Oint, TOP BID, (Reported) APPLY TO COCCYX Pantoprazole Sodium 20 Mg Tablet.dr, 20 MG PO DAILY, (Reported) Polyethylene Glycol 3350 17 Gm Powd.pack, 17 GM PO DAILY, (Reported) Terazosin HCl 1 Mg Capsule, 1 MG PO BID, (Reported) Testosterone 75 Gm Gel..disease management nurse, 2 PUMP TD DAILY, (Reported) Ticagrelor 90 Mg Tablet, 90 MG PO BID, (Reported) Tolnaftate 150 Gm [place], TP Q48H, (Reported) APPLY TO LEFT FOOT AND TOES Trazodone HCl 50 Mg Tablet, 50 MG PO HS, (Reported) Vits A and D/White Pet/Lanolin 42.5 Gm Oint...g., TP Q48H, (Reported) APPLY TO LEFT LOWER EXTREMITY Patient Home Medication List Home Medication List Reviewed: Yes Physical Exam-Cardiology Physical Exam Vital Signs/I&O 07/24/19 07/24/19 07/24/19 07/24/19 08:00 08:20 11:05 11:13 Temp 37.3 Pulse 88 82 71 Resp 17 16 B/P (MAP) 178/92 (120) 113/88 Pulse Ox 100 100 96 O2 Delivery Room Air Room Air Room Air 07/24/19 07/24/19 07/24/19 07/24/19 11:15 12:00 12:00 12:00 Temp 36.8 Pulse 67 86 Resp 24 8 B/P (MAP) 175/89 (117) 157/74 (101) Pulse Ox 98 92 95 O2 Delivery Room Air Room Air Room Air 07/24/19 07/24/19 07/24/19 07/24/19 13:00 13:52 16:00 16:00 Temp 37.0 Pulse 70 100 Resp 24 B/P (MAP) 157/67 (97) Pulse Ox 96 O2 Delivery Room Air Room Air 07/24/19 07/24/19 16:00 16:23 Pulse Ox 95 O2 Delivery Room Air Nasal Cannula O2 Flow Rate 2.00 Capillary Refill : Less Than 3 Seconds Constitutional: AAO x 3, well-developed, well-nourished HEENT: PERRL, hearing is well preserved, oral hygience is good Neck: No carotid bruit; carotid pulses are 2 + bilaterally Respiratory: No accessory muscle use, No respiratory distress; chest expansion is symmetric, chest is bilaterally symmetric, other (good air entry) Cardiovascular: regular rate-rhythm; No JVD; S1 and S2, systolic murmur Gastrointestinal: No tender; soft, round, audible bowel sounds Extremities: other (mod RLE swelling, L AKA) Neurologic/Psychiatric: grossly intact (moves extremities) Skin: No rash, No ulcerations Data Review Labs Laboratory Tests 07/24/19 08:35: White Blood Count 5.6, Red Blood Count 3.64L, Hemoglobin 9.9L, Hematocrit 30L, Mean Corpuscular Volume 82, Mean Corpuscular Hemoglobin 27, Mean Corpuscular He moglobin Concent 33, Red Cell Distribution Width 14.4, Platelet Count 255, Mean Platelet Volume 10.6H, Neutrophils (%) (Auto) 66, Lymphocytes (%) (Auto) 13, Monocytes (%) (Auto) 14H, Eosinophils (%) (Auto) 7, Basophils (%) (Auto) 0, Neutrophils # (Auto) 3.7, Lymphocytes # (Auto) 0.7L, Monocytes # (Auto) 0.8, Eosinophils # (Auto) 0.4H, Basophils # (Auto) 0.0, Prothrombin Time 13.8, INR Comment 1.0, Activated Partial Thromboplast Time 29, Sodium Level 130L, Potassium Level 4.9, Chloride Level 99, Carbon Dioxide Level 22, Anion Gap 9, Blood Urea Nitrogen 38H, Creatinine 1.77H, Estimat Glomerular Filtration Rate 46, BUN/Creatinine Ratio 21, Glucose Level 139H, Calcium Level 9.4, Corrected Calcium 9.8, Magnesium Level 3.4H, Total Bilirubin 0.4, Aspartate Amino Transf (AST/SGOT) 29, Alanine Aminotransferase (ALT/SGPT) 37, Alkaline Phosphatase 61, Myoglobin 285.1H, Troponin I 0.867*H, C-Reactive Protein High Sensitivity 1.38H, B-Type Natriuretic Peptide 31.5, Total Protein 6.8, Albumin 3.5 07/24/19 10:07: Glucometer 129H A/P-Cardiology Assessment/Admission Diagnosis Ac on chronic systolic and diastolic CHF Mild troponin elevation, likely type 2 [place] due to CHF Acute renal insufficiency - possible contrast nephropathy Coronary artery disease. Last card cath on 07/21/19 showed 80% mid to distal LAD stenosis that was successfully stented with [place] 2.0 x 18 mm stent; very distal LAD had 80% stenosis but is of too small a caliber for intervention; there were patent mid RCA stents (drug-eluting 2.5 x 14 and 2.0 x 30) placed on 07/12/[address] Grant; LVEF 45-50%, posterobasal akinesis Echo of 03/23/19: LVEF 50-55%, mild MR, mild to mod LA enlargement, RVSP 37 mmHg Peripheral arterial disease. Has had L AKA. Noted to have occluded R SFA at time of card cath of 07/21/19 (occlusion within a previously stented segment) Hypertension, labile blood pressure Hyperlipidemia Diabetes mellitus Discussion and Recomendations Complex management issue Multiple recent cor interventions have failed to relieve symptoms. Coronary status at conclusion of last cath was satisfactory. Disease remains only of small caliber vessels that are not amenable to interventions. Repeated cath and cor interventions appear to have cause contrast nephropathy. At this stage, it appears best to treat conservatively. Continue bb dual antiplatelet d/t recent coronary stenting. Continue therapy for his severe hypertension Acute renal insufficiency possibly in some part d/t contrast nephropathy - give IVF. Not suitable candidate for ROSAMARIA or ARB at this time d/t acute renal insufficiency Part of his symptoms may be related to GERD due to dual antiplatelet therapy. Increase pantoprazole Monitor lab I discussed his CV issues with him and his family in detail Clinical Quality Measures DVT/VTE Risk/Contraindication: Contraindications-Pharm: Other *list below* ANTONIETA CHILDRESS MD FACP FAC CCDS Jul 24, 2019 17:59
[2019-07-24] MEDS ORDERED: PANTOPRAZOLE 40 MG (PROTONIX) VIAL IV NR (18:00)
[2019-07-24 20:00] VITALS: BP 140/66
[2019-07-24] MEDS: TERAZOSIN 1 MG CAP (HYTRIN) PO SCH (20:41)
[2019-07-24] MEDS: traZODone 50 MG (DESYREL) TAB PO SCH (20:41)
[2019-07-24] MEDS: ALPRAZolam 0.25 MG (XANAX) TAB PO SCH (20:41)
[2019-07-24] MEDS: FINASTERIDE (PROSCAR) 5 MG TAB PO SCH (20:42)
[2019-07-24] MEDS: GABAPENTIN 600 MG (NEURONTIN) TAB PO SCH (20:42)
[2019-07-24] MEDS: HYDROcodone/APAP 7.5 MG/325 MG (LORTAB, LORCET PLUS) TABLET PO SCH (20:43)
[2019-07-24] MEDS: TICAGRELOR 90 MG TABLET (BRILINTA) PO SCH (20:43)
[2019-07-24] MEDS: CARVEDILOL 12.5 MG (COREG) TABLET PO SCH (20:53)
[2019-07-24] MEDS: DOCUSATE SODIUM 100 MG (COLACE) CAP PO SCH (20:54)
[2019-07-24] MEDS: POLYETHYLENE GLYCOL 17 GM (MIRALAX) PACK PO SCH (20:56)
[2019-07-25] VITALS: BP 98/50
[2019-07-25] MEDS: NS IV 1000 ML 1,000 ML IV SCH ×4 (01:06→20:08)
[2019-07-25] MEDS: HYDROcodone/APAP 7.5 MG/325 MG (LORTAB, LORCET PLUS) TABLET PO PRN (03:13)
[2019-07-25 03:53] LABS: ALANINE AMINOTRANSFERASE 23 U/L (0-55); ALBUMIN 3.1 GM/DL (3.2-4.5); ALKALINE PHOSPHATASE 54 U/L (40-136); BILIRUBIN,TOTAL 0.4 MG/DL (0.1-1.0); BUN/CREATININE RATIO 25; CALCIUM 8.7 MG/DL (8.5-10.1); CARBON DIOXIDE 21 MMOL/L (21-32); CHLORIDE 109 MMOL/L (98-107); CHOLESTEROL 119 MG/DL (< 200); CREATININE SERUM 1.15 MG/DL (0.60-1.30); GFR ESTIMATED > 60; GLUCOSE 89 MG/DL (70-105); HDL CHOLESTEROL 47 MG/DL (40-60); POTASSIUM 4.3 MMOL/L (3.6-5.0); SODIUM 138 MMOL/L (135-145); TOTAL PROTEIN 5.6 GM/DL (6.4-8.2); TRIGLYCERIDES 64 MG/DL (<150); VLDL CHOLESTEROL 13 MG/DL (5-40)
[2019-07-25 04:00] VITALS: BP 110/56
[2019-07-25] MEDS: inSUlin ASPART (NovoLOG) 1 UNIT/0.01 ML (CHARGE PER UNIT) SC SCH ×4 (06:26→20:46)
[2019-07-25] MEDS: hydrALAZINE (APRESOLINE) 25 MG TAB PO SCH ×3 (06:35→22:38)
[2019-07-25] MEDS: ALPRAZolam 0.5 MG (XANAX) TAB PO PRN (06:48)
[2019-07-25 08:00] VITALS: BP 138/73
[2019-07-25] MEDS: TICAGRELOR 90 MG TABLET (BRILINTA) PO SCH ×2 (08:39→20:09)
[2019-07-25] MEDS: TERAZOSIN 1 MG CAP (HYTRIN) PO SCH ×2 (08:40→20:08)
[2019-07-25] MEDS: amLODIPine 5 MG (NORVASC) TAB PO SCH (08:41)
[2019-07-25] MEDS: CARVEDILOL 12.5 MG (COREG) TABLET PO SCH ×2 (08:41→20:09)
[2019-07-25] MEDS: GABAPENTIN 600 MG (NEURONTIN) TAB PO SCH ×2 (08:41→20:09)
[2019-07-25] MEDS: POLYETHYLENE GLYCOL 17 GM (MIRALAX) PACK PO SCH ×2 (08:42→20:08)
[2019-07-25] MEDS: PANTOPRAZOLE 40 MG (PROTONIX) TAB PO SCH (08:42)
[2019-07-25] MEDS: ASPIRIN E.C. 81 MG (ECOTRIN) TAB PO SCH (08:42)
[2019-07-25] MEDS ORDERED: PANTOPRAZOLE 20 MG TABLET (PROTONIX) PO SCH (09:00)
[2019-07-25] MEDS ORDERED: ISOSORBIDE MONONITRATE 60 MG (IMDUR) TAB PO SCH (09:00)
[2019-07-25 12:00] VITALS: BP 133/90
--- NOTE | 2019-07-25 13:13 | NUR ---
This nurse encouraging patient to turn and reposition frequently. Patient continues refusing to be turned or repositioned. Patient and patients educated about the importance of turning to prevent skin breakdown and the risk of skin breakdown occurring. Several attempts made by this nurse and Taylor DANIELLE to reposition patient.
--- NOTE | 2019-07-25 14:47 | Progress Note - Cardiology ---
Cardiology SOAP Progress Note Subjective: No new symptoms Some gen malaise No recurrence of cp Intermittent shortness of breath (with exertion) No palp or syncope Objective: I&O/Vital Signs 07/25/19 07/25/19 07/25/19 07/25/19 04:00 04:00 04:00 06:09 Temp 37.3 Pulse 77 Resp 20 B/P (MAP) 110/56 (74) Pulse Ox 99 95 O2 Delivery Nasal Cannula Room Air Nasal Cannula O2 Flow Rate 2.00 2.00 07/25/19 07/25/19 07/25/19 07/25/19 07:00 08:00 09:00 13:00 Pulse 86 91 95 Resp 30 B/P (MAP) 138/73 (94) Pulse Ox 97 O2 Delivery Nasal Cannula Nasal Cannula O2 Flow Rate 2.00 07/25/19 00:00 Intake Total 900 ml Output Total 2850 ml Balance -1950 ml Weight (Pounds): 139 Weight (Ounces): 0.0 Weight (Calculated Kilograms): [id number] Constitutional: AAO x 3, well-developed, well-nourished Respiratory: No accessory muscle use, No respiratory distress; chest expansion is symmetric, chest is bilaterally symmetric, other (good air entry) Cardiovascular: regular rate-rhythm; No JVD; S1 and S2, systolic murmur Gastrointestional: No tender; soft, round, audible bowel sounds Extremities: other (mod RLE swelling, L AKA) Neurologic/Psychiatric: grossly intact (moves extremities) Skin: No rash, No ulcerations Results/Procedures: Labs Laboratory Tests 07/25/19 02:42: Sodium Level 138, Potassium Level 4.3, Chloride Level 109H, Carbon Dioxide Level 21, Anion Gap 8, Blood Urea Nitrogen 29H, Creatinine 1.15, Estimat Glomerular Filtration Rate > 60, BUN/Creatinine Ratio 25, Glucose Level 89, Calcium Level 8.7, Corrected Calcium 9.4, Total Bilirubin 0.4, Aspartate Amino Transf (AST/SGOT) 15, Alanine Aminotransferase (ALT/SGPT) 23, Alkaline Phosphatase 54, Total Protein 5.6L, Albumin 3.1L, Triglycerides Level 64, Cholesterol Level 119, LDL Cholesterol Direct 54, VLDL Cholesterol 13, HDL Cholesterol 47 Laboratory Tests 07/24/19 08:35 07/25/19 02:42 A/P: Assessment: Ac on chronic systolic and diastolic CHF Mild troponin elevation, likely type 2 [place] due to CHF Acute renal insufficiency - possible contrast nephropathy - improving Coronary artery disease. Last card cath on 07/21/19 showed 80% mid to distal LAD stenosis that was successfully stented with [place] 2.0 x 18 mm stent; very distal LAD had 80% stenosis but is of too small a caliber for intervention; there were patent mid RCA stents (drug-eluting 2.5 x 14 and 2.0 x 30) placed on 07/12/[address] Grant; LVEF 45-50%, posterobasal akinesis Echo of 03/23/19: LVEF 50-55%, mild MR, mild to mod LA enlargement, RVSP 37 mmHg Peripheral arterial disease. Has had L AKA. Noted to have occluded R SFA at time of card cath of 07/21/19 (occlusion within a previously stented segment) Hypertension, labile blood pressure Hyperlipidemia Diabetes mellitus Plan: Complex management issue Multiple recent cor interventions have failed to relieve symptoms. Coronary status at conclusion of last cath was satisfactory. Disease remains only of small caliber vessels that are not amenable to interventions. Repeated cath and cor interventions appear to have caused contrast nephropathy. At this stage, it appears best to treat conservatively. Continue bb dual antiplatelet d/t recent coronary stenting. Continue therapy for his severe hypertension Acute renal insuff appears to be improving. Not suitable candidate for ROSAMARIA or ARB at this time d/t acute renal insufficiency Continue to monitor lab I discussed his CV issues with him and also with Dr Puente this morning ANTONIETA CHILDRESS MD FACP FAC CCDS Jul 25, 2019 14:47
[2019-07-25 16:00] VITALS: BP 172/73
--- NOTE | 2019-07-25 17:27 | Progress Note - Hospitalist ---
Subjective HPI/CC On Admission Date Seen by Provider: Jul 25, 2019 Time Seen by Provider: 08:45 chest pain Subjective/Events-last exam He did not sleep very well last night and is tired this morning. He denies any chest pain at this time. He denies any shortness of breath. Denies any fevers or chills. He denies any abdominal pain, nausea, or vomiting. Objective Exam Vital Signs Vital Signs Date Time Temp Pulse Resp B/P (MAP) Pulse Ox O2 Delivery O2 Flow Rate FiO2 07/25/19 16:00 95 Room Air 07/25/19 13:00 95 07/25/19 12:00 19 133/90 (104) 07/25/19 08:00 2.00 07/25/19 04:00 37.3 Capillary Refill : Less Than 3 Seconds General Appearance: No Apparent Distress, WD/WN, Chronically ill Respiratory: Lungs Clear, Normal Breath Sounds, No Respiratory Distress Cardiovascular: Regular Rate, Rhythm Gastrointestinal: Normal Bowel Sounds, Non Tender, Soft Extremity: Normal Inspection, Non Tender, Pedal Edema Neurologic/Psychiatric: Alert, Oriented x3 Skin: Normal Color, Warm/Dry Results/Procedures Lab Laboratory Tests 07/25/19 02:42 Patient resulted labs reviewed. Assessment/Plan Assessment and Plan Assess & Plan/Chief Complaint NSTEMI Coronary artery disease hypertension Chronic kidney disease Type II diabetes mellitus Cardiology consulted, appreciate recommendations Kidney function improving today no other lesions amenable to intervention on most recent coronary catheterization Will plan to maximize antianginal medications transfer to the floor Diagnosis/Problems Diagnosis/Problems (1) Non-STEMI (non-ST elevated myocardial infarction) Status: Acute Clinical Quality Measures DVT/VTE Risk/Contraindication: Risk Factor Score Per Nursin RFS Level Per Nursing on Admit: 3=High Contraindications-Pharm: Other *list below* KAM BILLINGS MD Jul 25, 2019 17:27
[2019-07-25] MEDS: GABAPENTIN 300 MG (NEURONTIN) CAP PO SCH (18:14)
--- NOTE | 2019-07-25 18:25 | NUR ---
PT ARRIVED TO ROOM. SUPERVISOR RUBBER COVERING NURSE TO RESUME CARE. REPORT GIVEN TO HANNA DANIELLE.
[2019-07-25 20:00] VITALS: BP 186/77
[2019-07-25] MEDS: ALPRAZolam 0.25 MG (XANAX) TAB PO SCH (20:08)
[2019-07-25] MEDS: DOCUSATE SODIUM 100 MG (COLACE) CAP PO SCH (20:08)
[2019-07-25] MEDS: traZODone 50 MG (DESYREL) TAB PO SCH (20:09)
[2019-07-25] MEDS: FINASTERIDE (PROSCAR) 5 MG TAB PO SCH (20:09)
[2019-07-25] MEDS: HYDROcodone/APAP 7.5 MG/325 MG (LORTAB, LORCET PLUS) TABLET PO SCH (20:09)
[2019-07-25] MEDS ORDERED: ENOXAPARIN 40 MG/0.4 ML (LOVENOX) SYR SC SCH (21:00)
[2019-07-26 00:39] VITALS: BP 154/65
[2019-07-26] MEDS: NS IV 1000 ML 1,000 ML IV SCH ×2 (03:01→10:03)
[2019-07-26] MEDS: HYDROcodone/APAP 7.5 MG/325 MG (LORTAB, LORCET PLUS) TABLET PO PRN ×2 (04:02→11:47)
[2019-07-26] MEDS: ALPRAZolam 0.5 MG (XANAX) TAB PO PRN ×2 (04:03→11:47)
[2019-07-26] MEDS: hydrALAZINE (APRESOLINE) 25 MG TAB PO SCH ×2 (04:03→13:42)
[2019-07-26 04:34] VITALS: BP 180/76
[2019-07-26] MEDS: inSUlin ASPART (NovoLOG) 1 UNIT/0.01 ML (CHARGE PER UNIT) SC SCH ×2 (05:32→13:09)
[2019-07-26 07:14] LABS: BUN/CREATININE RATIO 19; CALCIUM 9.1 MG/DL (8.5-10.1); CARBON DIOXIDE 21 MMOL/L (21-32); CHLORIDE 112 MMOL/L (98-107); CREATININE SERUM 0.83 MG/DL (0.60-1.30); GFR ESTIMATED > 60; GLUCOSE 94 MG/DL (70-105); POTASSIUM 4.1 MMOL/L (3.6-5.0); SODIUM 141 MMOL/L (135-145)
[2019-07-26 08:35] VITALS: BP 190/88
[2019-07-26] MEDS ORDERED: ISOSORBIDE MONONITRATE 60 MG (IMDUR) TAB PO SCH (09:00)
[2019-07-26] MEDS: TICAGRELOR 90 MG TABLET (BRILINTA) PO SCH (09:33)
[2019-07-26] MEDS: GABAPENTIN 600 MG (NEURONTIN) TAB PO SCH (09:33)
[2019-07-26] MEDS: amLODIPine 5 MG (NORVASC) TAB PO SCH (09:33)
[2019-07-26] MEDS: CARVEDILOL 12.5 MG (COREG) TABLET PO SCH (09:33)
[2019-07-26] MEDS: ASPIRIN E.C. 81 MG (ECOTRIN) TAB PO SCH (09:33)
[2019-07-26] MEDS: TERAZOSIN 1 MG CAP (HYTRIN) PO SCH (09:34)
[2019-07-26] MEDS: POLYETHYLENE GLYCOL 17 GM (MIRALAX) PACK PO SCH (09:34)
[2019-07-26] MEDS: PANTOPRAZOLE 40 MG (PROTONIX) TAB PO SCH (09:34)
[2019-07-26 12:08] VITALS: BP 181/81
[2019-07-26] MEDS ORDERED: ISM60TCR PO (13:33)
--- NOTE | 2019-07-26 13:40 | Discharge Summary ---
Discharge Summary Hospital Course Was the Problem List Reviewed?: Yes Problems/Dx: (1) Non-STEMI (non-ST elevated myocardial infarction) Status: Acute Hospital Course Date of Admission: Jul 24, 2019 at 10:18 Admission Diagnosis : NSTEMI Family Physician/Provider: Terri Tavarez DO Date of Discharge: 07/26/19 Discharge Diagnosis: NSTEMI Hospital Course: Sky Muñiz is a 73-year-old male with past medical history of coronary artery disease with 2 recent left heart catheterizations with stent placements who presented with chest pain. He again had an elevated troponin level. Cardiology was consulted and due to his multiple recent heart catheterizations elected to treat conservatively. He had no lesions left which were amenable to intervention. His symptoms resolved and his anti-anginal medications were increased. His course was complicated by an acute kidney injury which resolved by discharge. Labs and Pending Lab Test: Laboratory Tests 07/25/19 20:45: Glucometer 125H 07/26/19 05:29: Glucometer 106 07/26/19 06:45: Sodium Level 141, Potassium Level 4.1, Chloride Level 112H, Carbon Dioxide Level 21, Anion Gap 8, Blood Urea Nitrogen 16, Creatinine 0.83, Estimat Glomerular Filtration Rate > 60, BUN/Creatinine Ratio 19, Glucose Level 94, Calcium Level 9.1 07/26/19 12:00: Glucometer 174H Home Meds Active Isosorbide Mononitrate ER (Isosorbide Mononitrate) 60 Mg Tab 90 Mg PO DAILY 30 Days Reported Tinactin (Tolnaftate) 150 Gm [place] TP Q48H APPLY TO LEFT FOOT AND TOES A and D Ointment (Vits A and D/White Pet/Lanolin) 42.5 Gm Oint...g. TP Q48H APPLY TO LEFT LOWER EXTREMITY Alprazolam 0.5 Mg Tablet 0.5 Mg PO BID PRN Glipizide 5 Mg Tablet 5 Mg PO DAILY Brilinta (Ticagrelor) 90 Mg Tablet 90 Mg PO BID Terazosin HCl 1 Mg Capsule 1 Mg PO BID Aspirin EC (Aspirin) 81 Mg Tablet.dr 81 Mg PO DAILY Acetaminophen 325 Mg Tablet 650 Mg PO Q4H PRN TAKES 2 (325MG) TABLETS Darcie-[place] Liquid (Mag Hydrox/Al Hydrox/Simeth) Unknown Strength Oral.susp 30 Ml PO Q4H PRN Bisacodyl 10 Mg Supp.rect 10 Mg RC UD PRN Amlodipine Besylate 5 Mg Tablet 5 Mg PO DAILY NOFITY MED IF SBP<90 OR >200 OR PULSE <50 Hydrocodone-Acetamin 7.5-325 (Hydrocodone/Acetaminophen) 1 Each Tablet 7.5-325 Mg PO TID PRN Carvedilol 25 Mg Tablet 25 Mg PO BID NOTIFY MD IF SBP<90 OR >200 OR PULSE <50 Hydralazine HCl 100 Mg Tablet 100 Mg PO TID Pantoprazole Sodium 20 Mg Tablet.dr 20 Mg PO DAILY Alprazolam 0.25 Mg Tablet 0.25 Mg PO HS Gabapentin 600 Mg Tablet 600 Mg PO BID Testosterone 75 Gm Gel..scientist 2 Pump TD DAILY Gabapentin 300 Mg Capsule 300 Mg PO 1800 Miralax (Polyethylene Glycol 3350) 17 Gm Powd.pack 17 Gm PO DAILY Calmoseptine Ointment (Menthol/Lanolin/Calamine/Znox) 71 Gm Oint TOP BID APPLY TO COCCYX Trazodone HCl 50 Mg Tablet 50 Mg PO HS Milk of Magnesia (Magnesium Hydroxide) 400 Mg/5 Ml Oral.susp 30 Ml PO DAILY PRN [place] Solostar (Insulin Glargine,Hum.rec.anlog) 300 Unit/1 Ml Insuln.pen 6 Unit SQ DAILY Magnesium Citrate 296 Ml Solution 296 Ml PO EVERY 4 DAYS PRN 1 BOTTLE EVERY 4 DAYS, IF NO BOWEL MOVEMENT, NEEDED FOR CONSTIPATION Lipitor (Atorvastatin Calcium) 10 Mg Tablet 10 Mg PO HS [place] 7.5-325 Tablet (Hydrocodone/Acetaminophen) 1 Each Tablet 1 Tab PO HS Baclofen 10 Mg Tablet 10 Mg PO Q8H PRN Colace (Docusate Sodium) 100 Mg Capsule 300 Mg PO HS TAKES 3 (100MG) CAPSULES Finasteride 5 Mg Tablet 5 Mg PO HS Bydureon Pen (Exenatide Microspheres) 2 Mg/0.65 Ml Pen.injctr 2 Mg SQ WEEK Assessment/Pt Instructions Take medications as prescribed. Increase your dose of Imdur. Follow up with cardiology. Discharge Planning: <30 minutes discharge planning Discharge Instructions Discharge Diet: ADA Diet Activity as Tolerated: Yes Pneumonia Vaccine Order Indica: Yes Consultations Cardiology Discharge Physical Examination Vital Signs Vital Signs Date Time Temp Pulse Resp B/P (MAP) Pulse Ox O2 Delivery O2 Flow Rate FiO2 07/26/19 13:00 98 10/20/19 12:08 37.2 20 181/81 (114) 94 Room Air 07/25/19 08:00 2.00 General Appearance: No Apparent Distress, WD/WN, Anxious Respiratory: Lungs Clear, Normal Breath Sounds, No Respiratory Distress Cardiovascular: Regular Rate, Rhythm, No Edema, No Murmur Gastrointestinal: Normal Bowel Sounds, Non Tender, Soft Extremity: Non Tender, No Pedal Edema, Other (Left AKA) Skin: Normal Color, Warm/Dry Neurologic/Psychiatric: Alert, Oriented x3, No Motor/Sensory Deficits, Normal Mood/Affect Allergies: Coded Allergies: Sulfa (Sulfonamide Antibiotics) (Verified Allergy, Severe, HIVES, 07/19/19) temazepam (Verified Allergy, Severe, 07/19/19) MENTAL CONFUSION hydromorphone (Verified Allergy, Unknown, 07/19/19) pravastatin (Verified Adverse Reaction, Severe, RASH, 07/19/19) clopidogrel (Verified Adverse Reaction, Unknown, 07/19/19) Copy Copies To 1: TERRI TAVAREZ DO Discharge Summary Date of Admission Jul 24, 2019 at 10:18 Date of Discharge Discharge Date: Jul 26, 2019 Discharge Time: 13:38 Admission Diagnosis NSTEMI Consults/Procedures Consulations Cardiology Discharge Diagnosis NSTEMI, coronary artery disease with angina (1) Non-STEMI (non-ST elevated myocardial infarction) Status: Acute Clinical Quality Measures DVT/VTE Risk/Contraindication: Risk Factor Score Per Nursin RFS Level Per Nursing on Admit: 3=High Contraindications-Pharm: Other *list below* KAM BILLINGS MD Jul 26, 2019 13:39
--- NOTE | 2019-07-26 15:51 | Progress Note - Cardiology ---
Cardiology SOAP Progress Note Subjective: He feels back to his usual baseline Does not report cp since admission Has chronic shortness of breath that is brought on by mild exertion Denies palpitations or syncope Objective: I&O/Vital Signs 07/26/19 07/26/19 07/26/19 07/26/19 04:34 07:00 08:35 09:00 Temp 37.3 37.2 Pulse 85 81 96 Resp 18 20 B/P (MAP) 180/76 (110) 190/88 (122) Pulse Ox 97 100 O2 Delivery Room Air Room Air Room Air 07/26/19 07/26/19 12:08 13:00 Temp 37.2 Pulse 91 98 Resp 20 B/P (MAP) 181/81 (114) Pulse Ox 94 O2 Delivery Room Air 07/26/19 00:00 Intake Total 850 ml Output Total 2700 ml Balance -1850 ml Weight (Pounds): 139 Weight (Ounces): 0.0 Weight (Calculated Kilograms): 63.340010 Constitutional: AAO x 3, well-developed, well-nourished Respiratory: No accessory muscle use, No respiratory distress; chest expansion is symmetric, chest is bilaterally symmetric, other (good air entry) Cardiovascular: regular rate-rhythm; No JVD; S1 and S2, systolic murmur Gastrointestional: No tender; soft, round, audible bowel sounds Extremities: other (mod RLE swelling, L AKA) Neurologic/Psychiatric: grossly intact (moves extremities) Skin: No rash, No ulcerations Results/Procedures: Labs Laboratory Tests 07/25/19 20:45: Glucometer 125H 07/26/19 05:29: Glucometer 106 07/26/19 06:45: Sodium Level 141, Potassium Level 4.1, Chloride Level 112H, Carbon Dioxide Level 21, Anion Gap 8, Blood Urea Nitrogen 16, Creatinine 0.83, Estimat Glomerular Filtration Rate > 60, BUN/Creatinine Ratio 19, Glucose Level 94, Calcium Level 9.1 07/26/19 12:00: Glucometer 174H Laboratory Tests 07/25/19 02:42 07/26/19 06:45 A/P: Assessment: Ac on chronic systolic and diastolic CHF, currently clinically compensated Mild troponin elevation, likely type 2 NH due to CHF Acute renal insufficiency - possible contrast nephropathy - resolved Coronary artery disease. Last card cath on 07/21/19 showed 80% mid to distal LAD stenosis that was successfully stented with [place] 2.0 x 18 mm stent; very distal LAD had 80% stenosis but is of too small a caliber for intervention; there were patent mid RCA stents (drug-eluting 2.5 x 14 and 2.0 x 30) placed on 07/12/[address] Grant; LVEF 45-50%, posterobasal akinesis Echo of 03/23/19: LVEF 50-55%, mild MR, mild to mod LA enlargement, RVSP 37 mmHg Peripheral arterial disease. Has had L AKA. Noted to have occluded R SFA at time of card cath of 07/21/19 (occlusion within a previously stented segment) Hypertension, labile blood pressure Hyperlipidemia Diabetes mellitus Plan: Complex management issue Multiple recent cor interventions have failed to relieve symptoms. Coronary status at conclusion of last cath was satisfactory. Disease remains only of sm all caliber vessels that are not amenable to interventions. Repeated cath and cor interventions appear to have caused contrast nephropathy. At this stage, it appears best to treat conservatively. Continue bb dual antiplatelet d/t recent coronary stenting. Continue therapy for his severe hypertension Ok to d/c from cardiac standpoint Outpt f/u advised I discussed his CV issues and our management plan with him ANTONIETA CHILDRESS MD FACP FAC CCDS Jul 26, 2019 15:51
[2019-07-26 16:00] VITALS: BP 171/75
[2019-07-26] MEDS ORDERED: CALCIUM CARBONATE 500 MG (TUMS) TAB.CHEW PO PRN (16:45)
== END 2019-07-26 17:50 ==
LOC: EDUNIT# 07:58 → ER 07:59 → ICU 10:18 → 4TH 07-25 18:26
PROVIDERS: ADMIT Family Medicine; ATTEND Family Medicine
DX: I21.4 Non-ST elevation (NSTEMI) myocardial infarction (principal); I25.119 Atherosclerotic heart disease of native coronary artery with unspecified angina pectoris; N17.9 Acute kidney failure, unspecified; N39.0 Urinary tract infection, site not specified; K59.09 Other constipation; G47.30 Sleep apnea, unspecified; E78.00 Pure hypercholesterolemia, unspecified; I10 Essential (primary) hypertension; I73.9 Peripheral vascular disease, unspecified; E11.40 Type 2 diabetes mellitus with diabetic neuropathy, unspecified; M19.90 Unspecified osteoarthritis, unspecified site; G89.29 Other chronic pain; M54.9 Dorsalgia, unspecified; F41.8 Other specified anxiety disorders; Z88.2 Allergy status to sulfonamides; Z88.5 Allergy status to narcotic agent; Z79.82 Long term (current) use of aspirin; Z79.84 Long term (current) use of oral hypoglycemic drugs; Z87.891 Personal history of nicotine dependence; Z89.612 Acquired absence of left leg above knee; Z95.1 Presence of aortocoronary bypass graft; Z90.79 Acquired absence of other genital organ(s); Z82.49 Family history of ischemic heart disease and other diseases of the circulatory system; Z83.3 Family history of diabetes mellitus; Z80.42 Family history of malignant neoplasm of prostate
CPT/HCPCS: 36415; 51702; 71045; 74019; 80048; 80053; 80061; 82962; 83735; 83874; 83880; 84484; 85025; 85610; 85730; 86141; 93005; 93041; 94640; 96360

== ENCOUNTER → 2019-07-28 | Outpatient (CLI) | payer MEDICARE ==
[2019-07-28 17:24] LABS: BILIRUBIN,URINE NEGATIVE (NEGATIVE); CLARITY,URINE SLIGHTLY CLOUDY; COLOR,URINE YELLOW; GLUCOSE, URINE (UA) NEGATIVE (NEGATIVE); KETONES,URINE NEGATIVE (NEGATIVE); LEUKOCYTE ESTERASE ,URINE 3+ (NEGATIVE); NITRITE,URINE NEGATIVE (NEGATIVE); PH,URINE 7 (5-9); PROTEIN,URINE 2+ (NEGATIVE)
[2019-07-28 17:37] LABS: BACTERIA,URINE LARGE /HPF; WBC,URINE TNTC /HPF
== END ==
LOC: CVS 16:50
PROVIDERS: ATTEND Family Medicine
DX: Z01.89 Encounter for other specified special examinations (principal)
CPT/HCPCS: 81000; 87077; 87088; 87186

== ENCOUNTER → 2019-08-11 | Outpatient (CLI) | payer MEDICARE ==
[~2019-08-11] MED LIST changes: +CATHETER FLUSH 10 ML SYR IV PRN; +HOLD METFORMIN - RECEIVED CONTRAST 20 ML VIAL IV SCH; +IOHEXOL 350 MG/ML 100 ML (OMNIPAQUE 350) VIAL IV ONE; +NS 100 ML (IVPB) BAG IV ONE
--- NOTE | 2019-08-11 17:32 | Diagnostic Imaging Report ---
PROCEDURE: CT abdomen with and without contrast. TECHNIQUE: Multiple contiguous axial CT images of the abdomen were obtained prior to and after intravenous administration of iodinated contrast. Auto Exposure Controls were utilized during the CT exam to meet ALARA standards for radiation dose reduction. INDICATION: Right renal mass identified on recent CT imaging. Follow-up. CORRELATION STUDY: CT imaging 07/11/2019. FINDINGS: Approximately 2.5 x 1.7 cm heterogeneous solid enhancing mass at the interpolar region laterally at the right kidney is present. Most worrisome for primary renal cell malignancy. Two small rounded hypodense lesions in the superior pole are compatible with cysts. Renal vein is patent. No pathologically enlarged adjacent aortocaval lymph nodes. Left kidney demonstrates several small rounded low-density foci favoring small cysts. Scattered areas of likely atelectasis or scarring about both lung bases. Heart size is enlarged. Significant severity coronary artery calcifications. Small hiatal hernia. The liver, spleen, pancreas, and gallbladder appear unremarkable. The adrenal glands with some diffuse thickening. Slight low-density nodularity at the right adrenal gland. Moderate aortoiliac wall calcification, nonaneurysmal. Branches demonstrate mild atheromatous changes without significant stenosis. Note is made of two prominent right renal arteries. The stomach is rather significantly distended with gas. There are fecalized small bowel contents. There is [id number] severity fecal retention in the visualized colon. No upper abdominal ascites. Visualized osseous structures demonstrate mildly advanced degenerative changes to be present. IMPRESSION: 1. 2.5 cm right renal mass, most concerning for primary renal malignancy until proven otherwise. No definitive evidence for intravascular invasion or pathologically enlarged adjacent lymphadenopathy. 2. Moderate atherosclerotic vascular calcifications. There is note made of two prominent right renal arteries. Dictated by: Dictated on workstation # [id number]
== END ==
LOC: RAD 15:12
PROVIDERS: ATTEND Family Medicine
DX: N28.89 Other specified disorders of kidney and ureter (principal); I70.0 Atherosclerosis of aorta
CPT/HCPCS: 74170

== ENCOUNTER 2019-09-20 19:43 | Emergency (ER) | payer MEDICARE, MEDICAID ==
[~2019-09-20] VITALS: Ht 175 cm; Wt 65.0 kg
[~2019-09-20 19:43] MED LIST changes: -CATHETER FLUSH 10 ML SYR IV PRN; -HOLD METFORMIN - RECEIVED CONTRAST 20 ML VIAL IV SCH; -IOHEXOL 350 MG/ML 100 ML (OMNIPAQUE 350) VIAL IV ONE; -NS 100 ML (IVPB) BAG IV ONE
--- NOTE | 2019-09-20 19:55 | ED General ---
General Stated Complaint: HTN Source of Information: Patient, EMS Exam Limitations: No Limitations History of Present Illness Date Seen by Provider: Sep 20, 2019 Time Seen by Provider: 19:35 Initial Comments Patient resents ER by private conveyance with chief complaint of high blood pressure from the [facility]. He had a fall about 7 months ago which landed him in the [facility] for rehabilitation. He also has a left knee amputation secondary to nonhealing diabetic ulcer. 3 months ago he had a heart attack and had 3 stents placed. Today staff made his blood pressure 200s over 110. Patient had no complaints. Primary care instructed him to come the ER for check out. Patient does claim the past few weeks he's been having some feelings that his stomach is jumping all over the place. No burning indigestion pain or nausea. He does take Zofran for nausea but has not had any recently. He denies any chest pain palpitations shortness of breath cough fever chills diarrhea or. He did recently have constipation and 2-3 days ago had a massive bowel movement after laxatives. He takes Pepcid. He said his nurse brought him some Mylanta for his stomach jumping around and that helped significantly. EMS reports 160/80 initially and 150/80 on route. The patientat his symptoms got worse about an hour after eating dinner which was some potatoes, carrots and sausage. Allergies and Home Medications Allergies Coded Allergies: Sulfa (Sulfonamide Antibiotics) (Verified Allergy, Severe, HIVES, 07/19/19) temazepam (Verified Allergy, Severe, 07/19/19) MENTAL CONFUSION hydromorphone (Verified Allergy, Unknown, 07/19/19) pravastatin (Verified Adverse Reaction, Severe, RASH, 07/19/19) clopidogrel (Verified Adverse Reaction, Unknown, 07/19/19) Home Medications Acetaminophen 325 Mg Tablet, 650 MG PO Q4H PRN for PAIN-MILD, (Reported) TAKES 2 (325MG) TABLETS Alprazolam 0.25 Mg Tablet, 0.25 MG PO HS, (Reported) Alprazolam 0.5 Mg Tablet, 0.5 MG PO BID PRN for ANXIETY, (Reported) Amlodipine Besylate 5 Mg Tablet, 5 MG PO DAILY, (Reported) NOFITY MED IF SBP<90 OR >200 OR PULSE <50 Aspirin 81 Mg Tablet.dr, 81 MG PO DAILY, (Reported) Atorvastatin Calcium 10 Mg Tablet, 10 MG PO HS, (Reported) Baclofen 10 Mg Tablet, 10 MG PO Q8H PRN for MUSCLE SPASMS, (Reported) Bisacodyl 10 Mg Supp.rect, 10 MG RC UD PRN for CONSTIPATION-4TH LINE, (Reported) Carvedilol 25 Mg Tablet, 25 MG PO BID, (Reported) NOTIFY MD IF SBP<90 OR >200 OR PULSE <50 Docusate Sodium 100 Mg Capsule, 300 MG PO HS, (Reported) TAKES 3 (100MG) CAPSULES Exenatide Microspheres 2 Mg/0.65 Ml Pen.injctr, 2 MG SQ WEEK, (Reported) Finasteride 5 Mg Tablet, 5 MG PO HS, (Reported) Gabapentin 300 Mg Capsule, 300 MG PO 1800, (Reported) Gabapentin 600 Mg Tablet, 600 MG PO BID, (Reported) Glipizide 5 Mg Tablet, 5 MG PO DAILY, (Reported) Hydralazine HCl 100 Mg Tablet, 100 MG PO TID, (Reported) Hydrocodone/Acetaminophen 1 Each Tablet, 1 TAB PO HS, (Reported) Hydrocodone/Acetaminophen 1 Each Tablet, 7.5-325 MG PO TID PRN for PAIN- MODERATE, (Reported) Insulin Glargine,Hum.rec.anlog 300 Unit/1 Ml Insuln.pen, 6 UNIT SQ DAILY, (Reported) Isosorbide Mononitrate 60 Mg Tab, 90 MG PO DAILY Prescribed by: KAM BILLINGS on 07/26/19 1333 Mag Hydrox/Al Hydrox/Simeth Unknown Strength Oral.susp, 30 ML PO Q4H PRN for INDIGESTION, (Reported) Magnesium Citrate 296 Ml Solution, 296 ML PO EVERY 4 DAYS PRN for CONSTIPATION- 9TH LINE, (Reported) 1 BOTTLE EVERY 4 DAYS, IF NO BOWEL MOVEMENT, NEEDED FOR CONSTIPATION Magnesium Hydroxide 400 Mg/5 Ml Oral.susp, 30 ML PO DAILY PRN for CONSTIPATION- 7TH LINE, (Reported) Menthol/Lanolin/Calamine/Znox 71 Gm Oint, TOP BID, (Reported) APPLY TO COCCYX Pantoprazole Sodium 20 Mg Tablet.dr, 20 MG PO DAILY, (Reported) Polyethylene Glycol 3350 17 Gm Powd.pack, 17 GM PO DAILY, (Reported) Terazosin HCl 1 Mg Capsule, 1 MG PO BID, (Reported) Testosterone 75 Gm Gel..master printer, 2 PUMP TD DAILY, (Reported) Ticagrelor 90 Mg Tablet, 90 MG PO BID, (Reported) Tolnaftate 150 Gm [place], TP Q48H, (Reported) APPLY TO LEFT FOOT AND TOES Trazodone HCl 50 Mg Tablet, 50 MG PO HS, (Reported) Vits A and D/White Pet/Lanolin 42.5 Gm Oint...g., TP Q48H, (Reported) APPLY TO LEFT LOWER EXTREMITY Patient Home Medication List Home Medication List Reviewed: Yes Review of Systems Review of Systems Constitutional: No chills, No diaphoresis EENTM: No ear pain, No eye pain Respiratory: No cough, No short of breath Cardiovascular: No chest pain, No edema; Hx of Intervention; No syncope; vascular heart diseas Gastrointestinal: see HPI; No abdominal pain; constipation; No diarrhea, No lo ss of appetite, No nausea Genitourinary: No discharge, No dysuria Musculoskeletal: No back pain, No joint pain Skin: No pruritus, No rash Psychiatric/Neurological: Denies Headache, Denies Numbness, Denies Paresthesia All Other Systems Reviewed Negative Unless Noted: Yes Past Zzzagxo-Vuwjnz-Pkchog Hx Patient Social History Alcohol Use: Denies Use Recreational Drug Use: No Smoking Status: Former Smoker Type Used: Cigars Former Smoker, Quit: Oct 07, 1979 2nd Hand Smoke Exposure: No Recent Foreign Travel: No Contact w/Someone Who Travel: No Recent Hopitalizations: No (Left AKA- [place]) Seasonal Allergies Seasonal Allergies: No Past Medical History Surgeries: Yes Amputation, Cardiac, Coronary Stent, Neurological, Orthopedic, Prostatectomy, Transurethral Resection, Vascular Surgery Respiratory: Yes Pneumonia, Sleep Apnea Currently Using CPAP: No Currently Using BIPAP: No Cardiac: Yes Chronic Edema/Swelling, Coronary Artery Disease, Heart Attack, High Cholesterol, Hypertension, Peripheral Vascular Neurological: Yes Neuropathy Reproductive Disorders: No Sexually Transmitted Disease: No HIV/AIDS: No Genitourinary: Yes (PROSTATE SURGERY) Benign Prostatic Hyperpl, Prostate Problems, UTI-Chronic Gastrointestinal: Yes Chronic Constipation Musculoskeletal: Yes Amputee, Degenerate Disk Disease, Arthritis, Chronic Back Pain Endocrine: Yes Diabetes, Insulin dep HEENT: Yes (Cataract- right eye; POOR DENTITION) Cataract, Dysphagia Loss of Vision: Denies Hearing Impairment: Denies Cancer: No Did You Recieve Any Treatments: No Psychosocial: Yes Sleep Difficulties, Anxiety, Depression Integumentary: Yes (GANGRENE AND INFECTION IN LEFT FOOT; CHRONIC WOUNDS TO RIGHT LEG AND FOOT. ) Recent Skin Changes Blood Disorders: No Adverse Reaction/Blood Tranf: No Family Medical History Abdominal aortic aneurysm G8 SISTER Alcoholism G8 BROTHER G8 BROTHER G8 BROTHER Arthritis G8 BROTHER G8 BROTHER G8 BROTHER G8 BROTHER G8 BROTHER G8 SISTER G8 SISTER Cardiovascular disease G8 SISTER Diabetes mellitus G8 BROTHER G8 BROTHER G8 BROTHER G8 SISTER G8 SISTER Drug abuse G8 BROTHER G8 BROTHER FH: COPD (chronic obstructive pulmonary disease) 19 FATHER FH: bladder cancer 19 MOTHER FH: prostate cancer 19 FATHER Headache disorder G8 BROTHER G8 BROTHER G8 BROTHER G8 BROTHER G8 BROTHER G8 BROTHER G8 BROTHER G8 BROTHER G8 SISTER G8 SISTER G8 SISTER G8 SISTER Hypercholesterolemia G8 BROTHER G8 BROTHER G8 BROTHER G8 BROTHER G8 BROTHER G8 SISTER G8 SISTER G8 SISTER G8 SISTER Hypertension 19 FATHER G8 BROTHER G8 BROTHER G8 BROTHER G8 BROTHER G8 BROTHER G8 BROTHER G8 BROTHER G8 BROTHER G8 SISTER G8 SISTER G8 SISTER G8 SISTER Thyroid disease Tuberculosis 19 FATHER Physical Exam Vital Signs Vital Signs - First Documented 09/20/19 19:53 Temp 36.8 Pulse 97 Resp 18 B/P (MAP) 152/90 (110) Pulse Ox 96 Capillary Refill : Height, Weight, BMI Height: 5'9.00" Weight: 139lbs. 0.0oz. [id number]; 23.32 BMI Method:Stated General Appearance: No Apparent Distress, Chronically ill Eyes: Bilateral Eye Normal Inspection, Bilateral Eye PERRL, Bilateral Eye EOMI HEENT: PERRL/EOMI, Pharynx Normal, Moist Mucous Membranes Neck: Full Range of Motion, Normal Inspection, Supple Respiratory: Chest Non Tender, Lungs Clear, Normal Breath Sounds, No Accessory Muscle Use, No Respiratory Distress Cardiovascular: Regular Rate, Rhythm, No Edema Gastrointestinal: Normal Bowel Sounds, No Organomegaly, No Pulsatile Mass, Non Tender, Soft Extremity: Normal Capillary Refill, Pedal Edema (right lower extremity with compression stockings), Other (left lower agitation, old) Neurologic/Psychiatric: Alert, Oriented x3, No Motor/Sensory Deficits, Normal Mood/Affect Skin: Normal Color, Warm/Dry Progress/Results/Core Measures Suspected Sepsis SIRS Temperature: Pulse: Respiratory Rate: Laboratory Tests 09/20/19 20:00: White Blood Count 5.0 Blood Pressure / Mean: Laboratory Tests 09/20/19 20:00: Creatinine 1.16, Platelet Count 230, Total Bilirubin 0.3 Results/Orders Lab Results Laboratory Tests Test 09/20/19 20:00 09/20/19 22:35 Range/Units White Blood Count 5.0 4.3-11.0 10^3/uL Red Blood Count 3.97 L 4.35-5.85 10^6/uL Hemoglobin 10.7 L 13.3-17.7 G/DL Hematocrit 33 L 40-54 % Mean Corpuscular Volume 84 80-99 FL Mean Corpuscular Hemoglobin 27 25-34 PG Mean Corpuscular Hemoglobin Concent 32 32-36 G/DL Red Cell Distribution Width 14.5 10.0-14.5 % Platelet Count 230 130-400 10^3/uL Mean Platelet Volume 10.8 H 7.4-10.4 FL Neutrophils (%) (Auto) 64 42-75 % Lymphocytes (%) (Auto) 21 12-44 % Monocytes (%) (Auto) 11 0-12 % Eosinophils (%) (Auto) 4 0-10 % Basophils (%) (Auto) 0 0-10 % Neutrophils # (Auto) 3.2 1.8-7.8 X 10^3 Lymphocytes # (Auto) 1.0 1.0-4.0 X 10^3 Monocytes # (Auto) 0.5 0.0-1.0 X 10^3 Eosinophils # (Auto) 0.2 0.0-0.3 10^3/uL Basophils # (Auto) 0.0 0.0-0.1 10^3/uL Sodium Level 140 135-145 MMOL/L Potassium Level 4.4 3.6-5.0 MMOL/L Chloride Level 105 98-107 MMOL/L Carbon Dioxide Level 22 21-32 MMOL/L Anion Gap 13 5-14 MMOL/L Blood Urea Nitrogen 21 H 7-18 MG/DL Creatinine 1.16 0.60-1.30 MG/DL Estimat Glomerular Filtration Rate > 60 BUN/Creatinine Ratio 18 Glucose Level 79 70-105 MG/DL Calcium Level 10.1 8.5-10.1 MG/DL Corrected Calcium 10.0 8.5-10.1 MG/DL Total Bilirubin 0.3 0.1-1.0 MG/DL Aspartate Amino Transf (AST/SGOT) 18 5-34 U/L Alanine Aminotransferase (ALT/SGPT) 19 0-55 U/L Alkaline Phosphatase 63 40-136 U/L Troponin I 0.053 H 0.054 H <0.028 NG/ML Total Protein 7.3 6.4-8.2 GM/DL Albumin 4.1 3.2-4.5 GM/DL Lipase 52 8-78 U/L My Orders Orders - MART GALLARDO Ekg Tracing (09/20/19 19:48) Continuous Ekg Monitoring (09/20/19 19:48) Troponin I (09/20/19 19:48) Cbc With Automated Diff (09/20/19 19:48) Comprehensive Metabolic Panel (09/20/19 19:48) Lipase (09/20/19 19:48) Ed Iv/Invasive Line Start (09/20/19 19:48) Pantoprazole Injection (Protonix Injecti (09/20/19 20:00) Troponin I (09/20/19 22:30) Medications Given in ED Current Medications Medications Dose Ordered Sig/Rosa Route Start Time Stop Time Status Last Admin Dose Admin Pantoprazole 40 mg ONCE ONCE IV 09/20/19 20:00 09/20/19 20:01 DC 09/20/19 20:05 40 MG Vital Signs/I&O 09/20/19 19:53 Temp 36.8 Pulse 97 Resp 18 B/P (MAP) 152/90 (110) Pulse Ox 96 Capillary Refill : Progress Note #1: Time: 19:56 Progress Note Well-appearing patient with stomach jumping around and indigestion made better by Mylanta after eating sausage. No history of abdominal surgeries. Plan to do some labs and observe him. If the EKG and blood work is okay then we'll let him go back and schedule outpatient workup including ultrasound of the right upper quadrant through primary care. His high blood pressure has not been reflected in her labs so far of 130/100 on initial blood pressure. Progress Note #2: Time: 23:24 Progress Note The patient slept through his entire hospital stay with his at his side. His blood pressure is at a high 162/94. I would not recommend any changes at this time. He's had no anginal symptoms. His troponin is practically the same as previous baseline. Were going to allow him to go home and follow up outpatient with primary care. ECG Initial ECG Impression Date: Sep 20, 2019 Initial ECG Impression Time: 20:08 Initial ECG Rate: 93 Initial ECG Rhythm: Normal Sinus Initial ECG Intervals: Normal Initial ECG Impression: Normal, Nonspecific Changes Initial ECG Comparisson: Unchanged Comment Normal sinus rhythm without clinically relevant ST elevation or depression. Unchanged from previous EKGs. Departure Impression Primary Impression: HTN (hypertension) Qualified Codes: I10 - Essential (primary) hypertension Disposition: HOME, SELF-CARE Condition: Stable Departure-Patient Inst. Decision time for Depature: 23:25 Referrals: TERRI TAVAREZ DO (PCP/Family) Primary Care Physician Patient Instructions: High Blood Pressure (DC) Add. Discharge Instructions: Continue taking her medications as prescribed. Follow-up with primary care doctor for Dr. Tavarez sometime next week and discuss whether an ultrasound right upper quadrant is warranted given your symptoms. Return to the ER if you have any chest pain, shortness of breath or other worrisome symptoms. MART GALLARDO Sep 20, 2019 19:55 POS
[2019-09-20] MEDS ORDERED: PANTOPRAZOLE 40 MG (PROTONIX) VIAL IV ONE (20:00)
[2019-09-20 20:10] LABS: BASOPHILS % (AUTO) 0 % (0-10); EOSINOPHILS # (AUTO) 0.2 10^3/uL (0.0-0.3); EOSINOPHILS % (AUTO) 4 % (0-10); HEMATOCRIT 33 % (40-54); HEMOGLOBIN 10.7 G/DL (13.3-17.7); LYMPHOCYTES % (AUTO) 21 % (12-44); MEAN CORPUSCULAR HEMOGLOBIN 27 PG (25-34); MEAN CORPUSCULAR HGB CONC 32 G/DL (32-36); MEAN CORPUSCULAR VOLUME 84 FL (80-99); MEAN PLATELET VOLUME 10.8 FL (7.4-10.4); MONOCYTES # (AUTO) 0.5 X 10^3 (0.0-1.0); MONOCYTES % (AUTO) 11 % (0-12); NEUTROPHILS # (AUTO) 3.2 X 10^3 (1.8-7.8); NEUTROPHILS % (AUTO) 64 % (42-75); PLATELET COUNT 230 10^3/uL (130-400); RED CELL DISTRIBUTION WIDTH 14.5 % (10.0-14.5)
[2019-09-20 20:28] LABS: ALANINE AMINOTRANSFERASE 19 U/L (0-55); ALBUMIN 4.1 GM/DL (3.2-4.5); ALKALINE PHOSPHATASE 63 U/L (40-136); BILIRUBIN,TOTAL 0.3 MG/DL (0.1-1.0); BUN/CREATININE RATIO 18; CALCIUM 10.1 MG/DL (8.5-10.1); CARBON DIOXIDE 22 MMOL/L (21-32); CHLORIDE 105 MMOL/L (98-107); CREATININE SERUM 1.16 MG/DL (0.60-1.30); GFR ESTIMATED > 60; GLUCOSE 79 MG/DL (70-105); LIPASE 52 U/L (8-78); POTASSIUM 4.4 MMOL/L (3.6-5.0); SODIUM 140 MMOL/L (135-145); TOTAL PROTEIN 7.3 GM/DL (6.4-8.2)
--- NOTE | 2019-09-20 22:58 | NUR ---
Patient resting quietly in bed. Spouse at bedside. No signs of distress present.
--- NOTE | 2019-09-20 23:31 | NUR ---
Patient's states she is not able to provide transport back to [facility]. Ede at [facility] given report on the patient and she states she will arrange transport.
--- NOTE | 2019-09-21 00:09 | NUR ---
Farheen DANIELLE called Ede at [facility]. She states that the occupational physician transportation person has not answered is phone or called her back so she will call the occupational physician RN to see what she needs to do next. She is supposed to call back here to let us know if she can arrange transportation.
--- NOTE | 2019-09-21 00:19 | NUR ---
Ede with [facility] called back and states they called EMS to come transport the patient. Patient and spouse notified.
[2019-09-21 00:34] VITALS: BP 162/94
--- NOTE | 2019-09-21 00:36 | NUR ---
Patient transported by [facility] back to [facility]. Patient awake and alert at time of discharge.
== END 2019-09-21 00:36 | disposition home or self-care (01) ==
LOC: EDUNIT# 19:43 → ER 19:44
DX: I10 Essential (primary) hypertension (principal); I25.2 Old myocardial infarction; E78.00 Pure hypercholesterolemia, unspecified; I25.10 Atherosclerotic heart disease of native coronary artery without angina pectoris; E11.40 Type 2 diabetes mellitus with diabetic neuropathy, unspecified; F41.9 Anxiety disorder, unspecified; F32.9 Major depressive disorder, single episode, unspecified; Z87.440 Personal history of urinary (tract) infections; Z87.828 Personal history of other (healed) physical injury and trauma; Z95.5 Presence of coronary angioplasty implant and graft; Z88.2 Allergy status to sulfonamides; Z88.8 Allergy status to other drugs, medicaments and biological substances; Z79.82 Long term (current) use of aspirin; Z79.4 Long term (current) use of insulin; Z87.891 Personal history of nicotine dependence; Z89.612 Acquired absence of left leg above knee; Z82.49 Family history of ischemic heart disease and other diseases of the circulatory system; Z80.42 Family history of malignant neoplasm of prostate; Z80.52 Family history of malignant neoplasm of bladder
CPT/HCPCS: 36415; 80053; 83690; 84484; 85025; 93005

== ENCOUNTER 2019-11-11 07:41 | Inpatient (IN) | payer MEDICARE, MEDICAID ==
[~2019-11-11] VITALS: Ht 175.3 cm; Wt 65.8 kg
[~2019-11-11 07:41] MED LIST changes: -ACET325C5 PO; +ACET325C7 PO; -DIGO250T PO; +DIGO250T3 PO; -SENN-233 PO; +SENN1TAB67 PO; -TRAZ-222 PO; +TRZ50T PO
[2019-11-11] MEDS ORDERED: NS IV 500 ML 500 ML IV ONE (07:50)
--- NOTE | 2019-11-11 07:50 | ED General ---
General Chief Complaint: Fever-Adult/Adol Stated Complaint: FEVER Source of Information: Patient, EMS History of Present Illness Date Seen by Provider: Nov 11, 2019 Time Seen by Provider: 07:47 Initial Comments 74-year-old male presents with not feeling well. Patient was sent in from the longterm by EMS. correction reports that he just not quite acting herself this morning. Patient reports that he hasn't been feeling well since yesterday evening. No reports of cough. Possible fever from the longterm. Patient has been having some issues with urinary retention and "passed a blood clot" in his urine last night according to EMS. Patient denies any cough. There is some mild nausea. No other systemic complaints at this time. Allergies and Home Medications Allergies Coded Allergies: Sulfa (Sulfonamide Antibiotics) (Verified Allergy, Severe, HIVES, 07/19/19) temazepam (Verified Allergy, Severe, 07/19/19) MENTAL CONFUSION hydromorphone (Verified Allergy, Unknown, 07/19/19) pravastatin (Verified Adverse Reaction, Severe, RASH, 07/19/19) clopidogrel (Verified Adverse Reaction, Unknown, 07/19/19) Home Medications Acetaminophen 325 Mg Tablet, 650 MG PO Q4H PRN for PAIN-MILD, (Reported) TAKES 2 (325MG) TABLETS Alprazolam 0.25 Mg Tablet, 0.25 MG PO HS, (Reported) Alprazolam 0.5 Mg Tablet, 0.5 MG PO BID PRN for ANXIETY, (Reported) Amlodipine Besylate 5 Mg Tablet, 5 MG PO DAILY, (Reported) NOFITY MED IF SBP<90 OR >200 OR PULSE <50 Aspirin 81 Mg Tablet.dr, 81 MG PO DAILY, (Reported) Atorvastatin Calcium 10 Mg Tablet, 10 MG PO HS, (Reported) Baclofen 10 Mg Tablet, 10 MG PO Q8H PRN for MUSCLE SPASMS, (Reported) Bisacodyl 10 Mg Supp.rect, 10 MG RC UD PRN for CONSTIPATION-4TH LINE, (Reported) Carvedilol 25 Mg Tablet, 25 MG PO BID, (Reported) NOTIFY MD IF SBP<90 OR >200 OR PULSE <50 Docusate Sodium 100 Mg Capsule, 300 MG PO HS, (Reported) TAKES 3 (100MG) CAPSULES Exenatide Microspheres 2 Mg/0.65 Ml Pen.injctr, 2 MG SQ WEEK, (Reported) Finasteride 5 Mg Tablet, 5 MG PO HS, (Reported) Gabapentin 300 Mg Capsule, 300 MG PO 1800, (Reported) Gabapentin 600 Mg Tablet, 600 MG PO BID, (Reported) Glipizide 5 Mg Tablet, 5 MG PO DAILY, (Reported) Hydralazine HCl 100 Mg Tablet, 100 MG PO TID, (Reported) Hydrocodone/Acetaminophen 1 Each Tablet, 1 TAB PO HS, (Reported) Hydrocodone/Acetaminophen 1 Each Tablet, 7.5-325 MG PO TID PRN for PAIN- MODERATE, (Reported) Insulin Glargine,Hum.rec.anlog 300 Unit/1 Ml Insuln.pen, 6 UNIT SQ DAILY, (Reported) Isosorbide Mononitrate 60 Mg Tab, 90 MG PO DAILY Prescribed by: KAM BILLINGS on 07/26/19 1333 Mag Hydrox/Al Hydrox/Simeth Unknown Strength Oral.susp, 30 ML PO Q4H PRN for INDIGESTION, (Reported) Magnesium Citrate 296 Ml Solution, 296 ML PO EVERY 4 DAYS PRN for CONSTIPATION- 9TH LINE, (Reported) 1 BOTTLE EVERY 4 DAYS, IF NO BOWEL MOVEMENT, NEEDED FOR CONSTIPATION Magnesium Hydroxide 400 Mg/5 Ml Oral.susp, 30 ML PO DAILY PRN for CONSTIPATION- 7TH LINE, (Reported) Menthol/Lanolin/Calamine/Znox 71 Gm Oint, TOP BID, (Reported) APPLY TO COCCYX Pantoprazole Sodium 20 Mg Tablet.dr, 20 MG PO DAILY, (Reported) Polyethylene Glycol 3350 17 Gm Powd.pack, 17 GM PO DAILY, (Reported) Terazosin HCl 1 Mg Capsule, 1 MG PO BID, (Reported) Testosterone 75 Gm Gel.district ranger, 2 PUMP TD DAILY, (Reported) Ticagrelor 90 Mg Tablet, 90 MG PO BID, (Reported) Tolnaftate 150 Gm [place], TP Q48H, (Reported) APPLY TO LEFT FOOT AND TOES Trazodone HCl 50 Mg Tablet, 50 MG PO HS, (Reported) Vits A and D/White Pet/Lanolin 42.5 Gm Oint...g., TP Q48H, (Reported) APPLY TO LEFT LOWER EXTREMITY Patient Home Medication List Home Medication List Reviewed: Yes Review of Systems Review of Systems Constitutional: fever, malaise Respiratory: No cough Cardiovascular: No chest pain Gastrointestinal: RUQ; No abdominal pain; nausea; No vomiting Genitourinary: see HPI Musculoskeletal: no symptoms reported Skin: no symptoms reported Psychiatric/Neurological: No Symptoms Reported Past Ycbmgpq-Vrutuz-Opqton Hx Past Med/Social Hx: Reviewed Nursing Past Med/Soc Hx Patient Social History Type Used: Cigars Former Smoker, Quit: Oct 07, 1979 2nd Hand Smoke Exposure: No Recent Hopitalizations: No Seasonal Allergies Seasonal Allergies: No Past Medical History Surgeries: Yes Amputation, Cardiac, Coronary Stent, Neurological, Orthopedic, Prostatectomy, Transurethral Resection, Vascular Surgery Respiratory: Yes Pneumonia, Sleep Apnea Currently Using CPAP: No Currently Using BIPAP: No Cardiac: Yes Chronic Edema/Swelling, Coronary Artery Disease, Heart Attack, High Cholesterol, Hypertension, Peripheral Vascular Neurological: Yes Neuropathy Reproductive Disorders: No Sexually Transmitted Disease: No HIV/AIDS: No Genitourinary: Yes (PROSTATE SURGERY) Benign Prostatic Hyperpl, Prostate Problems, UTI-Chronic Gastrointestinal: Yes Chronic Constipation Musculoskeletal: Yes Amputee, Degenerate Disk Disease, Arthritis, Chronic Back Pain Endocrine: Yes Diabetes, Insulin dep HEENT: Yes (Cataract- right eye; POOR DENTITION) Cataract, Dysphagia Loss of Vision: Denies Hearing Impairment: Denies Cancer: No Did You Recieve Any Treatments: No Psychosocial: Yes Sleep Difficulties, Anxiety, Depression Integumentary: Yes (GANGRENE AND INFECTION IN LEFT FOOT; CHRONIC WOUNDS TO RIGHT LEG AND FOOT. ) Recent Skin Changes Blood Disorders: No Adverse Reaction/Blood Tranf: No Family Medical History Abdominal aortic aneurysm G8 SISTER Alcoholism G8 BROTHER G8 BROTHER G8 BROTHER Arthritis G8 BROTHER G8 BROTHER G8 BROTHER G8 BROTHER G8 BROTHER G8 SISTER G8 SISTER Cardiovascular disease G8 SISTER Diabetes mellitus G8 BROTHER G8 BROTHER G8 BROTHER G8 SISTER G8 SISTER Drug abuse G8 BROTHER G8 BROTHER FH: COPD (chronic obstructive pulmonary disease) 19 FATHER FH: bladder cancer 19 MOTHER FH: prostate cancer 19 FATHER Headache disorder G8 BROTHER G8 BROTHER G8 BROTHER G8 BROTHER G8 BROTHER G8 BROTHER G8 BROTHER G8 BROTHER G8 SISTER G8 SISTER G8 SISTER G8 SISTER Hypercholesterolemia G8 BROTHER G8 BROTHER G8 BROTHER G8 BROTHER G8 BROTHER G8 SISTER G8 SISTER G8 SISTER G8 SISTER Hypertension 19 FATHER G8 BROTHER G8 BROTHER G8 BROTHER G8 BROTHER G8 BROTHER G8 BROTHER G8 BROTHER G8 BROTHER G8 SISTER G8 SISTER G8 SISTER G8 SISTER Thyroid disease Tuberculosis 19 FATHER Physical Exam Vital Signs Vital Signs - First Documented 11/11/19 07:45 Temp 39.5 Pulse 123 Resp 20 B/P (MAP) 118/58 (78) Pulse Ox 100 O2 Delivery Nasal Cannula O2 Flow Rate 4.00 Capillary Refill : Height, Weight, BMI Height: 5'9.00" Weight: 139lbs. 0.0oz. 63.001310xp; 21.00 BMI Method:Stated General Appearance: No Apparent Distress Eyes: Bilateral Eye Normal Inspection, Bilateral Eye PERRL Neck: Non Tender, Supple Respiratory: Chest Non Tender, Lungs Clear, Normal Breath Sounds Cardiovascular: Tachycardia Gastrointestinal: Non Tender, Soft Back: No CVA Tenderness Extremity: Normal Capillary Refill, Normal Inspection Neurologic/Psychiatric: Alert, No Motor/Sensory Deficits, Normal Mood/Affect Skin: Normal Color, Warm/Dry Focused Exam Lactate Level 11/11/19 07:54: Lactic Acid Level 1.32 Lactic Acid Level Laboratory Tests Test 11/11/19 07:54 Lactic Acid Level 1.32 MMOL/L (0.50-2.00) Progress/Results/Core Measures Suspected Sepsis SIRS Temperature: Pulse: Respiratory Rate: Laboratory Tests 11/11/19 07:54: White Blood Count 1.8L Blood Pressure / Mean: 11/11/19 07:54: Lactic Acid Level 1.32 Laboratory Tests 11/11/19 07:54: Creatinine 1.32H, Platelet Count 205, Total Bilirubin 0.6 Results/Orders Lab Results Laboratory Tests Test 11/11/19 07:54 11/11/19 09:30 Range/Units White Blood Count 1.8 L 4.3-11.0 10^3/uL Red Blood Count 4.10 L 4.35-5.85 10^6/uL Hemoglobin 10.8 L 13.3-17.7 G/DL Hematocrit 34 L 40-54 % Mean Corpuscular Volume 82 80-99 FL Mean Corpuscular Hemoglobin 26 25-34 PG Mean Corpuscular Hemoglobin Concent 32 32-36 G/DL Red Cell Distribution Width 14.9 H 10.0-14.5 % Platelet Count 205 130-400 10^3/uL Mean Platelet Volume 10.0 7.4-10.4 FL Sodium Level 137 135-145 MMOL/L Potassium Level 4.2 3.6-5.0 MMOL/L Chloride Level 103 98-107 MMOL/L Carbon Dioxide Level 26 21-32 MMOL/L Anion Gap 8 5-14 MMOL/L Blood Urea Nitrogen 32 H 7-18 MG/DL Creatinine 1.32 H 0.60-1.30 MG/DL Estimat Glomerular Filtration Rate > 60 BUN/Creatinine Ratio 24 Glucose Level 116 H 70-105 MG/DL Lactic Acid Level 1.32 0.50-2.00 MMOL/L Calcium Level 9.8 8.5-10.1 MG/DL Corrected Calcium 10.0 8.5-10.1 MG/DL Total Bilirubin 0.6 0.1-1.0 MG/DL Aspartate Amino Transf (AST/SGOT) 13 5-34 U/L Alanine Aminotransferase (ALT/SGPT) 17 0-55 U/L Alkaline Phosphatase 71 40-136 U/L Total Protein 6.9 6.4-8.2 GM/DL Albumin 3.7 3.2-4.5 GM/DL Urine Color YELLOW Urine Clarity CLEAR Urine pH 8.0 5-9 Urine Specific [place] 1.020 1.016-1.022 Urine Protein 1+ H NEGATIVE Urine Glucose (UA) NEGATIVE NEGATIVE Urine Ketones NEGATIVE NEGATIVE Urine Nitrite POSITIVE H NEGATIVE Urine Bilirubin NEGATIVE NEGATIVE Urine Urobilinogen 0.2 < = 1.0 MG/DL Urine Leukocyte Esterase NEGATIVE NEGATIVE Urine RBC (Auto) NEGATIVE NEGATIVE Urine RBC 2-5 H /HPF Urine WBC 2-5 /HPF Urine Squamous Epithelial Cells 0-2 /HPF Urine Crystals NONE /LPF Urine Bacteria MODERATE H /HPF Urine Casts NONE /LPF Urine Mucus NEGATIVE /LPF Urine Culture Indicated YES Micro Results Microbiology 11/11/19 Influenza Types A,B Antigen (SOILA) - Final, Complete My Orders Orders - DORMAN,ISIS L DO Chest Pa/Lat (2 View) (11/11/19 07:50) Abdomen/Kub 1view (11/11/19 07:50) Ekg Tracing (11/11/19 07:50) O2 (11/11/19 07:50) Cbc No Diff (11/11/19 07:50) Comprehensive Metabolic Panel (11/11/19 07:50) Lactic Acid Analyzer (11/11/19 07:50) Ua Culture If Indicated (11/11/19 07:50) Blood Culture (11/11/19 07:50) Influenza A And B Antigens (11/11/19 07:50) Ed Iv/Invasive Line Start (11/11/19 07:50) Ns Iv 500 Ml (Sodium Chloride 0.9%) (11/11/19 07:50) Acetaminophen Tablet (Tylenol Tablet) (11/11/19 08:44) Albuterol/Ipra Inhalation Soln (Duoneb I (11/11/19 09:30) Svn Small Volume Nebulizer (11/11/19 09:18) Urine Culture (11/11/19 09:30) Ceftriaxone For Iv Use (Rocephin For I (11/11/19 10:30) Oseltamivir 75 Mg Capsule (Tamiflu 75 (11/11/19 10:30) Ns Iv 500 Ml (Sodium Chloride 0.9%) (11/11/19 10:21) Medications Given in ED Current Medications Medications Dose Ordered Sig/Rosa Route Start Time Stop Time Status Last Admin Dose Admin Albuterol/ Ipratropium 3 ml ONCE ONCE INH 11/11/19 09:30 11/11/19 09:31 DC 11/11/19 09:50 3 ML Ceftriaxone Sodium 1000 mg/ Sterile Water 10 ml @ 200 mls/hr ONCE ONCE IV 11/11/19 10:30 11/11/19 10:32 DC 11/11/19 10:30 200 MLS/HR Oseltamivir Phosphate 75 mg ONCE ONCE PO 11/11/19 10:30 11/11/19 10:31 DC 11/11/19 10:30 75 MG Sodium Chloride 500 ml @ 0 mls/hr Q0M ONCE IV 11/11/19 07:50 11/11/19 07:54 DC 11/11/19 10:31 0 MLS/HR Vital Signs/I&O 11/11/19 11/11/19 11/11/19 11/11/19 07:45 08:09 09:50 11:24 Temp 39.5 39.4 Pulse 123 117 Resp 20 20 B/P (MAP) 118/58 (78) 118/58 (78) Pulse Ox 100 99 88 94 O2 Delivery Nasal Cannula Nasal Cannula Room Air Nasal Cannula O2 Flow Rate 4.00 4.00 3.00 Capillary Refill : Departure Communication (Admissions) Time/Spoke to Admitting Phy: 10:30 CBC, CMP in a.m. We'll continue Tamiflu 75 mg twice a day and Rocephin 1 g IV daily Impression Primary Impression: Influenza-like symptoms Additional Impressions: Bronchitis Cystitis Disposition: ADMITTED INPATIENT Condition: Stable Admissions Decision to Admit Reason: Admit from ER (General) Decision to Admit/Date: Nov 11, 2019 Time/Decision to Admit Time: 10:30 Departure-Patient Inst. Referrals: TERRI TAVAREZ DO (PCP/Family) Primary Care Physician ISIS DORMAN DO Nov 11, 2019 07:49
[2019-11-11 08:05] LABS: HEMOGLOBIN 10.8 G/DL (13.3-17.7); RED CELL DISTRIBUTION WIDTH 14.9 % (10.0-14.5); WHITE BLOOD COUNT 1.8 10^3/uL (4.3-11.0)
[2019-11-11 08:31] LABS: ALANINE AMINOTRANSFERASE 17 U/L (0-55); ALBUMIN 3.7 GM/DL (3.2-4.5); ALKALINE PHOSPHATASE 71 U/L (40-136); BILIRUBIN,TOTAL 0.6 MG/DL (0.1-1.0); BUN/CREATININE RATIO 24; CALCIUM 9.8 MG/DL (8.5-10.1); CARBON DIOXIDE 26 MMOL/L (21-32); CHLORIDE 103 MMOL/L (98-107); CREATININE SERUM 1.32 MG/DL (0.60-1.30); GFR ESTIMATED > 60; GLUCOSE 116 MG/DL (70-105); POTASSIUM 4.2 MMOL/L (3.6-5.0); SODIUM 137 MMOL/L (135-145); TOTAL PROTEIN 6.9 GM/DL (6.4-8.2)
[2019-11-11] MEDS ORDERED: ACETAMINOPHEN 500 MG TAB (TYLENOL) PO STA (08:44)
--- NOTE | 2019-11-11 09:07 | Diagnostic Imaging Report ---
INDICATION: Fever, malaise, hypoxia. COMPARISON: 07/24/2019 FINDINGS: 2 views of the chest are performed. Airspace opacities in the lung bases, left greater than right, appear similar to July 2019. No pleural effusion or pneumothorax is seen. Lung volumes are low. The cardiac silhouette is normal in size. IMPRESSION: 1. Chronic bibasilar airspace opacities, left greater than right, appears similar to July 2019. This may represent chronic atelectasis/scarring although underlying infiltrate is not excluded. Dictated by: Dictated on workstation # [id number]
--- NOTE | 2019-11-11 09:08 | Diagnostic Imaging Report ---
HISTORY: Fever, malaise, hypoxia, hematuria, and difficulty voiding. COMPARISON: 07/24/2019. TECHNIQUE: Supine frontal views of the abdomen. FINDINGS: There is moderate stool throughout the colon. The bowel gas pattern is nonspecific. There is no large collection of free air. There is diffuse osteopenia with degenerative changes in the spine and hips. IMPRESSION: 1. Moderate stool in the colon, please correlate with the history of constipation. 2. Nonspecific bowel gas pattern. Dictated by: Dictated on workstation # [id number]
[2019-11-11] MEDS ORDERED: RT-ALBUTEROL/IPRATROPIUM 3 ML (DUONEB) VIAL INH ONE (09:30)
[2019-11-11 09:43] LABS: BILIRUBIN,URINE NEGATIVE (NEGATIVE); CLARITY,URINE CLEAR; COLOR,URINE YELLOW; GLUCOSE, URINE (UA) NEGATIVE (NEGATIVE); KETONES,URINE NEGATIVE (NEGATIVE); LEUKOCYTE ESTERASE ,URINE NEGATIVE (NEGATIVE); NITRITE,URINE POSITIVE (NEGATIVE); PROTEIN,URINE 1+ (NEGATIVE)
[2019-11-11 09:58] LABS: BACTERIA,URINE MODERATE /HPF; SQUAMOUS EPITHELIAL CELL,UR 0-2 /HPF
[2019-11-11] MEDS ORDERED: NS IV 500 ML 500 ML ONE (10:21)
[2019-11-11] MEDS ORDERED: OSELTAMIVIR 75 MG (TAMIFLU) CAPSULE PO ONE (10:30)
[2019-11-11] MEDS ORDERED: cefTRIAXone FOR IV USE 1,000 MG in WATER (STERILE) FOR INJECTION 10 ML IV ONE (10:30)
[2019-11-11 11:43] VITALS: BP 104/57
[2019-11-11] MEDS ORDERED: CATHETER FLUSH 10 ML SYR IV PRN (11:45)
[2019-11-11 12:00] VITALS: BP 104/57
[2019-11-11] MEDS: NS IV 1000 ML 1,000 ML IV SCH ×2 (12:40→23:39)
[2019-11-11] MEDS ORDERED: CLOP75TA28 PO (13:29)
[2019-11-11] MEDS ORDERED: TEST75GE3 TD (13:29)
[2019-11-11] MEDS ORDERED: POTA10TA36 PO (13:29)
[2019-11-11] MEDS ORDERED: NALO25TA PO (13:30)
[2019-11-11] MEDS ORDERED: FURO40TA4 PO (13:30)
[2019-11-11] MEDS ORDERED: ISM60TCR PO (13:30)
[2019-11-11] MEDS ORDERED: ONDA8TAB13 PO (13:30)
[2019-11-11] MEDS ORDERED: NA P133E22 RC (13:40)
[2019-11-11] MEDS ORDERED: PHEN-640 PO (13:40)
--- NOTE | 2019-11-11 13:51 | NUR ---
UPDATED MED REC WITH MAR FROM [facility]
--- NOTE | 2019-11-11 14:42 | History & Physical ---
History of Present Illness History of Present Illness Reason for visit/HPI Patient resident of a [facility]. Patient weak and still slower in speaking. Patient acting like his usual self. Patient sent out to the emergency room. UA shows UTI. Patient has leukopenia white blood cell count 1800. Patient presents flu like Date of Admission Nov 11, 2019 at 10:54 Time Seen by a Provider: 14:37 I consulted on this patient on 11/11/19 14:37 Attending Physician Los Tavarez DO Admitting Physician Los Tavarez DO Consult Allergies and Home Medications Allergies Coded Allergies: Sulfa (Sulfonamide Antibiotics) (Verified Allergy, Severe, HIVES, 07/19/19) temazepam (Verified Allergy, Severe, 07/19/19) MENTAL CONFUSION hydromorphone (Verified Allergy, Unknown, 07/19/19) pravastatin (Verified Adverse Reaction, Severe, RASH, 07/19/19) clopidogrel (Verified Adverse Reaction, Unknown, 07/19/19) Home Medications Acetaminophen 325 Mg Tablet, 650 MG PO Q4H PRN for PAIN-MILD, (Reported) TAKES 2 (325MG) TABLETS Alprazolam 0.25 Mg Tablet, 0.25 MG PO HS, (Reported) Atorvastatin Calcium 10 Mg Tablet, 10 MG PO HS, (Reported) Baclofen 10 Mg Tablet, 10 MG PO Q8H PRN for MUSCLE SPASMS, (Reported) Bisacodyl 10 Mg Supp.rect, 10 MG RC UD PRN for CONSTIPATION-4TH LINE, (Reported) Carvedilol 25 Mg Tablet, 25 MG PO BID, (Reported) NOTIFY MD IF SBP<90 OR >200 OR PULSE <50 Clopidogrel Bisulfate 75 Mg Tablet, 75 MG PO DAILY, (Reported) Docusate Sodium 100 Mg Capsule, 300 MG PO HS, (Reported) TAKES 3 (100MG) CAPSULES Exenatide Microspheres 2 Mg/0.65 Ml Pen.injctr, 2 MG SQ Th, (Reported) Finasteride 5 Mg Tablet, 5 MG PO HS, (Reported) Furosemide 40 Mg Tablet, 40 MG PO Q48H, (Reported) Gabapentin 300 Mg Capsule, 300 MG PO 1600, (Reported) Gabapentin 600 Mg Tablet, 600 MG PO 0800,2200, (Reported) Glipizide 5 Mg Tablet, 5 MG PO DAILY, (Reported) Hydralazine HCl 100 Mg Tablet, 100 MG PO 0600,1400,2200, (Reported) HOLD AND NOTIFY MED FOR SBP<110 Hydrocodone/Acetaminophen 1 Each Tablet, 1 TAB PO HS, (Reported) Hydrocodone/Acetaminophen 1 Each Tablet, 1 TAB PO TID PRN for PAIN-MODERATE, (Reported) Insulin Glargine,Hum.rec.anlog 300 Unit/1 Ml Insuln.pen, 6 UNIT SQ DAILY, (Reported) Isosorbide Mononitrate 60 Mg Tab, 90 MG PO 1000, (Reported) TAKES 1 & 1/2 (60MG) TABLET Mag Hydrox/Al Hydrox/Simeth Unknown Strength Oral.susp, 30 ML PO Q4H PRN for INDIGESTION, (Reported) Magnesium Citrate 296 Ml Solution, 296 ML PO EVERY 4 DAYS PRN for CONSTIPATION- 9TH LINE, (Reported) 1 BOTTLE EVERY 4 DAYS, IF NO BOWEL MOVEMENT, NEEDED FOR CONSTIPATION Magnesium Hydroxide 400 Mg/5 Ml Oral.susp, 30 ML PO DAILY PRN for CONSTIPATION- 7TH LINE, (Reported) Na Phos,M-B/Na Phos,Di-Ba 133 Ml Enema, 133 ML RC DAILY PRN for CONSTIPATION, (Reported) Naloxegol Oxalate 25 Mg Tablet, 25 MG PO DAILY, (Reported) Ondansetron 8 Mg Tab.rapdis, 8 MG PO TID, (Reported) Pantoprazole Sodium 20 Mg Tablet.dr, 20 MG PO DAILY, (Reported) Phenazopyridine HCl 200 Mg Tablet, 200 MG PO TID PRN for BLADDER SPASMS, (Reported) Polyethylene Glycol 3350 17 Gm Powd.pack, 17 GM PO DAILY, (Reported) Potassium Chloride 10 Meq Tab.er.prt, 10 MEQ PO Q48H, (Reported) Terazosin HCl 1 Mg Capsule, 1 MG PO BID, (Reported) Testosterone 75 Gm Gel.auditing control clerk, 2 PUMP TD DAILY, (Reported) Trazodone HCl 50 Mg Tablet, 50 MG PO HS, (Reported) Patient Home Medication List Home Medication List Reviewed: Yes Past Wglrfec-Yxoopl-Uhxogd Hx Past Med/Social Hx: Reviewed Nursing Past Med/Soc Hx Patient Social History Marrital Status: Employed/Student: retired Alcohol Use: Denies Use Recreational Drug Use: No (Hx in ) Smoking Status: Former Smoker Former Smoker, Quit: Oct 07, 1979 Type Used: Cigars 2nd Hand Smoke Exposure: No Recent Foreign Travel: No Contact w/other who traveled: No Recent Hopitalizations: No Recent Infectious Disease Expo: No Seasonal Allergies Seasonal Allergies: No Past Medical History Surgeries: Amputation, Cardiac, Coronary Stent, Neurological, Orthopedic, Prostatectomy, Transurethral Resection, Vascular Surgery Currently Using CPAP: No Currently Using BIPAP: No Cardiac: Chronic Edema/Swelling, Coronary Artery Disease, Heart Attack, High Cholesterol, Hypertension, Peripheral Vascular Neurological: Neuropathy Reproductive: No Sexually Transmitted Disease: No HIV/AIDS: No Genitourinary: Benign Prostatic Hyperpl, Prostate Problems, UTI-Chronic Gastrointestinal: Chronic Constipation Musculoskeletal: Amputee, Degenerate Disk Disease, Arthritis, Chronic Back Pain Endocrine: Diabetes, Insulin dep HEENT: Cataract, Dysphagia Loss of Vision: Denies Hearing Impairment: Denies Did You Recieve Any Treatments: No Psychosocial: Sleep Difficulties, Anxiety, Depression Skin/Integumentary: Recent Skin Changes History of Blood Disorders: No Adverse Reaction to Blood Hernandez: No Family History Abdominal aortic aneurysm G8 SISTER Alcoholism G8 BROTHER G8 BROTHER G8 BROTHER Arthritis G8 BROTHER G8 BROTHER G8 BROTHER G8 BROTHER G8 BROTHER G8 SISTER G8 SISTER Cardiovascular disease G8 SISTER Diabetes mellitus G8 BROTHER G8 BROTHER G8 BROTHER G8 SISTER G8 SISTER Drug abuse G8 BROTHER G8 BROTHER FH: COPD (chronic obstructive pulmonary disease) 19 FATHER FH: bladder cancer 19 MOTHER FH: prostate cancer 19 FATHER Headache disorder G8 BROTHER G8 BROTHER G8 BROTHER G8 BROTHER G8 BROTHER G8 BROTHER G8 BROTHER G8 BROTHER G8 SISTER G8 SISTER G8 SISTER G8 SISTER Hypercholesterolemia G8 BROTHER G8 BROTHER G8 BROTHER G8 BROTHER G8 BROTHER G8 SISTER G8 SISTER G8 SISTER G8 SISTER Hypertension 19 FATHER G8 BROTHER G8 BROTHER G8 BROTHER G8 BROTHER G8 BROTHER G8 BROTHER G8 BROTHER G8 BROTHER G8 SISTER G8 SISTER G8 SISTER G8 SISTER Thyroid disease Tuberculosis 19 FATHER Review of Systems Constitutional: malaise, weakness, other (Speaking slower. Voice lower than usual) EENTM: no symptoms reported Respiratory: no symptoms reported Cardiovascular: no symptoms reported Gastrointestinal: constipation Genitourinary: other (UTI) Physical Exam Vital Signs Vital Signs - First Documented 11/11/19 07:45 Temp 39.5 Pulse 123 Resp 20 B/P (MAP) 118/58 (78) Pulse Ox 100 O2 Delivery Nasal Cannula O2 Flow Rate 4.00 Capillary Refill : Less Than 3 Seconds Height, Weight, BMI Height: 5'9.00" Weight: 139lbs. 0.0oz. 63.192960ez; 21.41 BMI Method:Stated General Appearance: No Apparent Distress, Thin Eyes: Bilateral Eye Normal Inspection HEENT: Normal ENT Inspection Neck: Full Range of Motion, Normal Inspection Respiratory: No Accessory Muscle Use, No Respiratory Distress, Decreased Breath Sounds Cardiovascular: Regular Rate, Rhythm Gastrointestinal: Non Tender, Soft Assessment/Plan Assessment and Plan UTI. Weakness. Flulike syndrome. Admission Diagnosis Admission Status: Observation Clinical Quality Measures DVT/VTE Risk/Contraindication: Risk Factor Score Per Nursin RFS Level Per Nursing on Admit: 4+=Very High LOS TAVAREZ DO Nov 11, 2019 14:42
[2019-11-11] MEDS ORDERED: MILK OF MAGNESIA 400 MG/5 ML 30 ML UDC PO PRN (14:45)
[2019-11-11] MEDS ORDERED: BISACODYL 10 MG SUPP (DULCOLAX) RC PRN (14:45)
[2019-11-11] MEDS: HYDROcodone/APAP 7.5 MG/325 MG (LORTAB, LORCET PLUS) TABLET PO PRN (15:06)
[2019-11-11 16:00] VITALS: BP 88/48
--- NOTE | 2019-11-11 16:12 | NUR ---
TOOK OVER CARE OF THIS PATIENT AT THIS TIME FROM PEARL DANIELLE.
[2019-11-11] MEDS: GABAPENTIN 300 MG (NEURONTIN) CAP PO SCH (16:40)
[2019-11-11] MEDS: ACETAMINOPHEN 325 MG TABLET PO PRN (16:42)
[2019-11-11 17:45] VITALS: BP 91/51
[2019-11-11 20:00] VITALS: BP 87/52
[2019-11-11] MEDS: CARVEDILOL 12.5 MG (COREG) TABLET PO SCH (20:30)
[2019-11-11] MEDS: OSELTAMIVIR 30 MG (TAMIFLU) CAPSULE PO SCH (21:37)
[2019-11-11] MEDS: DOCUSATE SODIUM 100 MG (COLACE) CAP PO SCH (21:38)
[2019-11-11] MEDS: HYDROcodone/APAP 7.5 MG/325 MG (LORTAB, LORCET PLUS) TABLET PO SCH (21:38)
[2019-11-11] MEDS: GABAPENTIN 600 MG (NEURONTIN) TAB PO SCH (21:38)
[2019-11-11] MEDS: FINASTERIDE (PROSCAR) 5 MG TAB PO SCH (21:42)
[2019-11-11] MEDS: ONDANSETRON 4 MG (ZOFRAN) ORAL DISSOLVE TAB PO SCH (21:43)
[2019-11-11] MEDS: hydrALAZINE (APRESOLINE) 25 MG TAB PO SCH (21:43)
[2019-11-12] VITALS: BP_SYST 101; BP_SYST 86; BP_DIAS 51; BP_DIAS 58
[2019-11-12 04:00] VITALS: BP 101/58
[2019-11-12] MEDS: hydrALAZINE (APRESOLINE) 25 MG TAB PO SCH ×3 (06:21→21:48)
[2019-11-12] MEDS: FUROSEMIDE 40 MG (LASIX) TAB PO SCH (06:42)
[2019-11-12 07:21] LABS: BASOPHILS % (AUTO) 0 % (0-10); EOSINOPHILS % (AUTO) 0 % (0-10); HEMATOCRIT 28 % (40-54); HEMOGLOBIN 8.7 G/DL (13.3-17.7); LYMPHOCYTES # (AUTO) 0.7 X 10^3 (1.0-4.0); LYMPHOCYTES % (AUTO) 4 % (12-44); MEAN CORPUSCULAR HEMOGLOBIN 26 PG (25-34); MEAN CORPUSCULAR HGB CONC 31 G/DL (32-36); MEAN CORPUSCULAR VOLUME 84 FL (80-99); MEAN PLATELET VOLUME 11.3 FL (7.4-10.4); MONOCYTES # (AUTO) 1.5 X 10^3 (0.0-1.0); MONOCYTES % (AUTO) 9 % (0-12); NEUTROPHILS # (AUTO) 13.9 X 10^3 (1.8-7.8); NEUTROPHILS % (AUTO) 86 % (42-75); PLATELET COUNT 173 10^3/uL (130-400); RED CELL DISTRIBUTION WIDTH 15.7 % (10.0-14.5); WHITE BLOOD COUNT 16.1 10^3/uL (4.3-11.0)
[2019-11-12 07:32] LABS: ALANINE AMINOTRANSFERASE 15 U/L (0-55); ALBUMIN 3.1 GM/DL (3.2-4.5); ALKALINE PHOSPHATASE 52 U/L (40-136); BILIRUBIN,TOTAL 0.5 MG/DL (0.1-1.0); BUN/CREATININE RATIO 26; CARBON DIOXIDE 23 MMOL/L (21-32); CHLORIDE 109 MMOL/L (98-107); CREATININE SERUM 1.25 MG/DL (0.60-1.30); GFR ESTIMATED > 60; GLUCOSE 81 MG/DL (70-105); POTASSIUM 4.6 MMOL/L (3.6-5.0); SODIUM 138 MMOL/L (135-145)
[2019-11-12 08:00] VITALS: BP 137/68
[2019-11-12 08:08] LABS: BAND NEUTROPHILS 5 %; EOSINOPHILS % (MANUAL) 1 %; LYMPHOCYTES % (MANUAL) 4 %; MONOCYTES % (MANUAL) 5 %; NEUTROPHILS % (MANUAL) 85 %
[2019-11-12 08:09] LABS: BASOPHILS % (MANUAL) 0 %; RBC MORPH NORMAL
[2019-11-12] MEDS: KCL 10 MEQ TAB (MICRO K) PO SCH (08:52)
--- NOTE | 2019-11-12 08:55 | Progress Note ---
Subjective Time Seen by a Provider: 08:52 Subjective/Events-last exam UTI. Hypotension. Flulike syndrome. Diabetes. Patient starting to feel a little better Focused Exam Lactate Level 11/11/19 07:54: Lactic Acid Level 1.32 Objective Exam Vital Signs Date Time Temp Pulse Resp B/P (MAP) Pulse Ox O2 Delivery O2 Flow Rate FiO2 11/12/19 04:00 36.8 106 16 101/58 (72) 98 Nasal Cannula 2.50 11/12/19 00:00 36.2 95 16 86/51 (63) 96 Nasal Cannula 2.50 11/12/19 00:00 36.8 106 16 101/58 (72) 96 Nasal Cannula 2.50 11/11/19 20:00 36.9 92 18 87/52 (64) 97 Nasal Cannula 2.50 11/11/19 20:00 96 Nasal Cannula 2.00 11/11/19 17:45 91/51 (64) 11/11/19 17:12 37.2 11/11/19 16:42 38.6 11/11/19 16:22 Nasal Cannula 2.50 11/11/19 16:00 38.6 101 18 88/48 (61) 100 Nasal Cannula 2.50 11/11/19 12:00 38.2 108 20 104/57 (73) 95 Nasal Cannula 2.50 11/11/19 11:43 38.2 108 20 104/57 95 Nasal Cannula 2.50 11/11/19 11:24 39.4 117 20 118/58 (78) 94 Nasal Cannula 3.00 11/11/19 09:50 88 Room Air I & O 11/12/19 07:00 Intake Total 2040 ml Balance 2040 ml Capillary Refill : Less Than 3 Seconds General Appearance: No Apparent Distress, Thin HEENT: Normal ENT Inspection Neck: Full Range of Motion, Normal Inspection Respiratory: Lungs Clear, No Accessory Muscle Use, No Respiratory Distress Cardiovascular: Regular Rate, Rhythm, No Murmur Gastrointestinal: non tender, soft Extremity: Other (Amputated leg) Results Lab Laboratory Tests 11/12/19 06:32 Laboratory Tests 11/11/19 09:30: Urine Color YELLOW, Urine Clarity CLEAR, Urine pH 8.0, Urine Specific [place] 1.020, Urine Protein 1+H, Urine Glucose (UA) NEGATIVE, Urine Ketones NEGATIVE, Urine Nitrite POSITIVEH, Urine Bilirubin NEGATIVE, Urine Urobilinogen 0.2, Urine Leukocyte Esterase NEGATIVE, Urine RBC (Auto) NEGATIVE, Urine RBC 2-5H, Urine WBC 2-5, Urine Squamous Epithelial Cells 0-2, Urine Crystals NONE, Urine Bacteria MODERATEH, Urine Casts NONE, Urine Mucus NEGATIVE, Urine Culture Indicated YES 11/11/19 16:46: Glucometer 116H 11/12/19 06:32: White Blood Count 16.1H, Red Blood Count 3.32L, Hemoglobin 8.7L, Hematocrit 28L, Mean Corpuscular Volume 84, Mean Corpuscular Hemoglobin 26, Mean Corpuscular Hemoglobin Concent 31L, Red Cell Distribution Width 15.7H, Platelet Count 173, Mean Platelet Volume 11.3H, Neutrophils (%) (Auto) 86H, Lymphocytes (%) (Auto) 4L, Monocytes (%) (Auto) 9, Eosinophils (%) (Auto) 0, Basophils (%) (Auto) 0, Neutrophils # (Auto) 13.9H, Lymphocytes # (Auto) 0.7L, Monocytes # (Auto) 1.5H, Eosinophils # (Auto) 0.0, Basophils # (Auto) 0.0, Neutrophils % (Manual) 85, Lymphocytes % (Manual) 4, Monocytes % (Manual) 5, Eosinophils % (Manual) 1, Basophils % (Manual) 0, Band Neutrophils 5, Blood Morphology Comment NORMAL, Sodium Level 138, Potassium Level 4.6, Chloride Level 109H, Carbon Dioxide Level 23, Anion Gap 6, Blood Urea Nitrogen 32H, Creatinine 1.25, Estimat Glomerular Filtration Rate > 60, BUN/Creatinine Ratio 26, Glucose Level 81, Calcium Level 9.0, Corrected Calcium 9.7, Total Bilirubin 0.5, Aspartate Amino Transf ( AST/SGOT) 16, Alanine Aminotransferase (ALT/SGPT) 15, Alkaline Phosphatase 52, Total Protein 6.0L, Albumin 3.1L Microbiology 11/11/19 Urine Culture - Preliminary, Resulted Gram Negative [place] 11/11/19 Influenza Types A,B Antigen (SOILA) - Final, Complete Assessment/Plan Assessment/Plan Assess & Plan/Chief Complaint UTI. Flulike syndrome leukopenia. Diabetes. Constipation. White blood cell count 1600 today 16,000. Anemia Clinical Quality Measures Admission Status Admission Dx UTI. Weakness. Flulike syndrome. DVT/VTE Risk/Contraindication: Risk Factor Score Per Nursin RFS Level Per Nursing on Admit: 4+=Very High Contraindications-Pharm: Other *list below* TERRI TAVAREZ DO Nov 12, 2019 08:55
[2019-11-12] MEDS ORDERED: TESTOSTERONE PUMP TD SCH (09:00)
[2019-11-12] MEDS: cefTRIAXone 1,000 MG/SWFI 10 ML IV PUSH IV SCH ×2 (10:23)
[2019-11-12] MEDS: NS IV 1000 ML 1,000 ML IV SCH ×3 (10:23→21:12)
[2019-11-12] MEDS: ONDANSETRON 4 MG (ZOFRAN) ORAL DISSOLVE TAB PO SCH ×3 (10:23→21:06)
[2019-11-12] MEDS: OSELTAMIVIR 30 MG (TAMIFLU) CAPSULE PO SCH ×2 (10:24→21:06)
[2019-11-12] MEDS: CLOPIDOGREL 75 MG (PLAVIX) TABLET PO SCH (10:24)
[2019-11-12] MEDS: CARVEDILOL 12.5 MG (COREG) TABLET PO SCH ×2 (10:24→21:07)
[2019-11-12] MEDS: GABAPENTIN 600 MG (NEURONTIN) TAB PO SCH ×2 (10:24→22:29)
[2019-11-12] MEDS: polyethylene glycoL POWDER 17 GM (MIRALAX) PACK PO SCH (10:35)
--- NOTE | 2019-11-12 11:43 | Physical Therapy Evaluation ---
PT Evaluation-General Medical Diagnosis Admission Date Nov 12, 2019 at 09:00 Medical Diagnosis: Bronchitis/ UTI Onset Date: Nov 12, 2019 Therapy Diagnosis Therapy Diagnosis: Debility Height/Weight Height (Feet): 5 Height (Inches): 9.00 Weight (Pounds): 139 Weight (Ounces): 0.0 Precautions Precautions/Isolations: Fall Prevention, Standard Precautions Referral Physician: Thuan Reason for Referral: Evaluation/Treatment Medical History Pertinent Medical History: Arthritis, CAD, DM, HTN, Neuropathy, PVD Additional Medical History Dysphagia, amputation, sleep apnea, anxiety, depression. Current History Patient presented to ER via EMS from half-way with fever. Reviewed History: Yes Social History Home: Shelter Prior Prior Level of Function SCALE: Activities may be completed with or without assistive devices. 6-Qbyuwybcom-dkfdiem completes the activity by him/herself with no assistance from a helper. 5-Set-up or Clean-up Assistance-helper sets up or cleans up; patient completes activity. [place] assists only prior to or following the activity. 4-Supervision or Touching Assistance-helper provides verbal cues and/or touching/steadying and/or contact guard assistance as patient completes activity. Assistance may be provided throughout the activity or intermittently. 3-Partial/Moderate Assistance-helper does LESS THAN HALF the effort. [place] lifts, holds or supports trunk or limbs, but provides less than half the effort. 2-Substantial/Maximal Assistance-helper does MORE THAN HALF the effort. [place] lifts or holds trunk or limbs and provides more than half the effort. 6-Jcrbgkrdq-osamrl does ALL the effort. Patient does none of the effort to complete the activity. Or, the assistance of 2 or more helpers is required for the patient to complete the activity. If activity was not attempted, code reason: 7-Patient Refused. 9-Not Applicable-not attempted and the patient did not perform the activity before the current illness, exacerbation or injury. 10-Not Attempted due to Environmental Limitations-(lack of equipment, weather restraints, etc.). 88-Not Attempted due to Medical Conditions or Safety Concerns. Bed Mobility: 3 Transfers (B,C,W/C): 4 (Used slideboard to transfer) Wheelchair Mobility: 4 Prior Devices Use: Manual wheelchair PT Evaluation-Current Subjective Patient states that he is having a lot of BUE pain and is unable to move and use his arms so he will need help to get to sitting. Pain Numeric Pain Scale: 10-Worst Possible Pain Location: Right, Left Location Body Site: Arm Objective Patient Orientation: Person, Place, Time, Situation Attachments: Oxygen, IV ROM/Strength ROM Lower Extremities LLE WFL Strength Lower Extremities LLE impaired Integumentary/Posture Integumentary See nursing notes. Bowel Incontinence: No Bladder Incontinence: No Neuromuscular (Tone, Coordination, Reflexes) Grossly intact Sensory Vision: Functional Hearing: Functional Sensation Left Lower Extremity: Impaired Transfers Roll Left to Right (QC): 1 Sit to Lying (QC): 1 Lying to Sitting/Side of Bed(Q: 1 Patient could not maintain sitting position IND, needed assist to stay upright in sitting position. Gait Does the Patient Walk?: No and Walking Goal NOT indicated Balance Sitting Static: Poor Sitting Dynamic: Poor Assessment/Needs Patient is unable to perform bed mobility and can't maintain upright sitting position without assistance. Patient will benefit from skilled therapy for strengthening to reach maximum LOF. Rehab Potential: Guarded PT Detention Goals Biology Teacher Goals PT Detention Goals Time Frame: Nov 20, 2019 Roll Left & Right (QC): 3 Sit to Lying (QC): 3 Lying-Sitting on Side/Bed(QC): 3 Chair/Hsw-cz-Qnfaw Xfer(QC): 3 Toilet Transfer (QC): 3 PT Plan Problem List Problem List: Activity Tolerance, Functional Strength, Safety, Balance, Transfer, Bed Mobility Treatment/Plan Treatment Plan: Continue Plan of Care Treatment Plan: Bed Mobility, Education, Functional Activity Miranda, Functional Strength, Safety, Therapeutic Exercise, Transfers Treatment Duration: Nov 20, 2019 Frequency: 5 times per week Estimated Hrs Per Day: .25 hour per day Discharge Recommendations Therapy Discharge Recommendati: Other, See Comments ([place]) Time/GCodes Time In: 1103 Time Out: 1115 Total Billed Treatment Time: 12 Total Billed Treatment 1 visit EVIsacc 12 MARYANN MARQUEZ PT Nov 12, 2019 11:43
[2019-11-12 12:45] VITALS: BP 150/65
[2019-11-12] MEDS: HYDROcodone/APAP 7.5 MG/325 MG (LORTAB, LORCET PLUS) TABLET PO PRN (13:56)
--- NOTE | 2019-11-12 14:08 | NUR ---
"RD ASSESSMENT PMHx: CAD' NC; hypercholesterolemia; HTN; BPH; DM; dysphagia PT INTERACTION: Pt was awake and pleasant during nutrition assessment. Pt states current appetite is poor and has been this way for the last 6 days. Note avg PO intake of 25% x3meal, per chart review. Pt states following a regular diet at [facility] where he resides. Pt states no recent issues with chewing/swallowing food. Pt states no recent issues with n/v at this time. Pt states recent issues with constipation, and that is last BM was 4 days ago. Note pt currently on bowel regimen of miralax qd; and colace HS, per chart review. Pt states recent 2-3# wt gain, but unable to give timeframe. Note unable to determine recent wt hx, per chart review. ABNORMAL NUTRITION-RELATED LAB VALUES LOW: Pro 6.1; alb 3.1 HIGH: Cl 109; BUN 19 Est. kcal needs: 3260-6004 kcal | 25-30 kcal/kg Est. Pro needs: 53-66 g Pro | 0.8-1.0 g Pro/kg PES STATEMENT: Inadequate oral intake (NI-2.1) related to loss of appetite | constipation as evidenced by pt interview | avg PO intake 25% x3meal INTERVENTION: Continue with current diet order of Regular diet. Add Ensure Enlive (vary) to meals TID for increased kcal intake. Provides 350 kcal and 13 g Pro per serving. Pt may benefit from more aggressive bowel regimen if constipation persists. Will continue to follow and reassess as pt needs and status change. MONITOR/EVALUATE: PO Intake; Plan of Care; Hydration Status; Weight Status; Lab Values Elodia Khoury, , RD, LD"
[2019-11-12 14:49] LABS: BILIRUBIN,URINE NEGATIVE (NEGATIVE); CLARITY,URINE CLEAR; COLOR,URINE YELLOW; GLUCOSE, URINE (UA) NEGATIVE (NEGATIVE); KETONES,URINE NEGATIVE (NEGATIVE); LEUKOCYTE ESTERASE ,URINE TRACE (NEGATIVE); NITRITE,URINE NEGATIVE (NEGATIVE); PH,URINE 6.5 (5-9); PROTEIN,URINE NEGATIVE (NEGATIVE)
[2019-11-12 14:56] LABS: BACTERIA,URINE NEGATIVE /HPF; SQUAMOUS EPITHELIAL CELL,UR 0-2 /HPF
--- NOTE | 2019-11-12 15:00 | NUR ---
Pastoral Care Visit.
--- NOTE | 2019-11-12 15:31 | NUR ---
IRF Evaluation Order received to evaluate patient for the ARU. Chart review complete and patient has been denied admission, at this time. This denial is due to the patient's inability to tolerate intensive therapies. CM/SS notified. Late Entry: Patient's spouse presented to the ARU, this morning, seeking treating PT; however, therapist was unavailable. Met with spouse to discuss inpatient rehab program versus patient's current placement at [facility]. Spouse familiar with program as patient has previously been admitted to the ARU. It was explained that he would be required to participate in 3 hrs of therapy day, 5 days a week, as well as be able to tolerate this regimen and significantly benefit. Spouse states she is hopeful that he will be accepted to unit. Thank you for this referral.
[2019-11-12 16:00] VITALS: BP 124/67
--- NOTE | 2019-11-12 16:55 | NUR ---
IRF At the request of the SW, met with patient and spouse to discuss denial. Patient states he has fulfilled the three hour requirement in the past and feels as if he could again. Spouse raised voice stating, "That makes no sense! If he were doing any better then he would be home. You have to take his UTI and viral infection into consideration." This chief underwriter explained that inpatient rehab's requirement and intent is to ensure patients can tolerate and significantly benefit from intensive therapies, and the patient would not be able to currently fulfill those expectations. Patient goes on to state his bilateral wrists are injured from therapy he received at [facility]. This chief underwriter again reiterated the requirement of participating in intensive therapy and how that injury would set limitations within the ARU setting. Conversation concluded with an agreement to re-evaluate patient, based on tomorrow's therapy session. CM/SS notified.
[2019-11-12] MEDS: GABAPENTIN 300 MG (NEURONTIN) CAP PO SCH (17:34)
[2019-11-12 20:00] VITALS: BP 103/54
--- NOTE | 2019-11-12 20:15 | NUR ---
RECEIVED REPORT FROM SHASHI PLATT. THIS RN TO ASSUME CARE OF PT AT THIS TIME.
[2019-11-12] MEDS: FINASTERIDE (PROSCAR) 5 MG TAB PO SCH (21:06)
[2019-11-12] MEDS: HYDROcodone/APAP 7.5 MG/325 MG (LORTAB, LORCET PLUS) TABLET PO SCH (21:06)
[2019-11-12] MEDS: DOCUSATE SODIUM 100 MG (COLACE) CAP PO SCH (21:06)
[2019-11-13] VITALS: BP 130/60
[2019-11-13 04:00] VITALS: BP 138/75
--- NOTE | 2019-11-13 05:22 | NUR ---
BLADDER SCANNED PERFORMED DUE TO PT C/O URINARY RETENTION. BLADDER SCANNER SHOWED >987ML RESIDUAL URINE.
--- NOTE | 2019-11-13 05:29 | NUR ---
THIS RN CONTACTED DR. TAVAREZ TO INFORM HIM OF PT'S URINARY RETENTION AND RESULTS OF BLADDER SCAN. NEW ORDERS OBTAINED, SEE ORDER HX.
--- NOTE | 2019-11-13 05:59 | NUR ---
1175ML RESIDUAL URINE DRAINED VIA STRAIGHT CATHETERIZATION BY THIS RN.
[2019-11-13] MEDS: HYDROcodone/APAP 7.5 MG/325 MG (LORTAB, LORCET PLUS) TABLET PO PRN (06:04)
[2019-11-13] MEDS: hydrALAZINE (APRESOLINE) 25 MG TAB PO SCH ×3 (06:04→22:10)
[2019-11-13 07:25] LABS: BASOPHILS % (AUTO) 0 % (0-10); EOSINOPHILS # (AUTO) 0.2 10^3/uL (0.0-0.3); EOSINOPHILS % (AUTO) 1 % (0-10); HEMATOCRIT 29 % (40-54); LYMPHOCYTES # (AUTO) 0.6 X 10^3 (1.0-4.0); LYMPHOCYTES % (AUTO) 5 % (12-44); MEAN CORPUSCULAR HEMOGLOBIN 27 PG (25-34); MEAN CORPUSCULAR HGB CONC 32 G/DL (32-36); MEAN CORPUSCULAR VOLUME 84 FL (80-99); MEAN PLATELET VOLUME 10.3 FL (7.4-10.4); MONOCYTES % (AUTO) 8 % (0-12); NEUTROPHILS # (AUTO) 10.9 X 10^3 (1.8-7.8); NEUTROPHILS % (AUTO) 86 % (42-75); PLATELET COUNT 173 10^3/uL (130-400); RED CELL DISTRIBUTION WIDTH 15.3 % (10.0-14.5); WHITE BLOOD COUNT 12.7 10^3/uL (4.3-11.0)
[2019-11-13] MEDS: NS IV 1000 ML 1,000 ML IV SCH ×3 (07:27→17:38)
[2019-11-13 07:43] LABS: BUN/CREATININE RATIO 24; CALCIUM 9.1 MG/DL (8.5-10.1); CARBON DIOXIDE 22 MMOL/L (21-32); CHLORIDE 107 MMOL/L (98-107); CREATININE SERUM 0.93 MG/DL (0.60-1.30); GFR ESTIMATED > 60; GLUCOSE 122 MG/DL (70-105); POTASSIUM 4.4 MMOL/L (3.6-5.0); SODIUM 136 MMOL/L (135-145)
--- NOTE | 2019-11-13 07:50 | NUR ---
DR. ELLIOTT NOTIFIED OF CONSULT.
[2019-11-13 08:00] VITALS: BP 161/74
--- NOTE | 2019-11-13 08:30 | Progress Note ---
Subjective Time Seen by a Provider: 08:26 Subjective/Events-last exam Patient's urine and blood positive. Urinary retention with 1200 mL. Patient has vibration in his abdomen. Patient appears anxious this morning Focused Exam Lactate Level 11/11/19 07:54: Lactic Acid Level 1.32 11/12/19 15:22: Lactic Acid Level 0.79 Objective Exam Vital Signs Date Time Temp Pulse Resp B/P (MAP) Pulse Ox O2 Delivery O2 Flow Rate FiO2 11/13/19 04:00 36.9 98 20 138/75 (96) 97 Nasal Cannula 2.50 11/13/19 00:00 37.2 107 18 130/60 (83) 100 Nasal Cannula 2.50 11/12/19 20:00 36.4 99 20 103/54 (70) 97 Nasal Cannula 2.50 11/12/19 20:00 Nasal Cannula 2.00 11/12/19 16:00 36.9 101 20 124/67 (86) 97 Nasal Cannula 2.50 11/12/19 14:30 37.4 11/12/19 12:45 37.4 93 20 150/65 (93) 97 Nasal Cannula 2.50 I & O 11/13/19 07:00 Intake Total 3170 ml Output Total 2775 ml Balance 395 ml Capillary Refill : Less Than 3 Seconds General Appearance: No Apparent Distress, WD/WN HEENT: Normal ENT Inspection Neck: Full Range of Motion, Normal Inspection Respiratory: Lungs Clear, No Accessory Muscle Use, No Respiratory Distress Cardiovascular: Regular Rate, Rhythm, No Murmur Gastrointestinal: non tender, soft Results Lab Laboratory Tests 11/13/19 07:15 Laboratory Tests 11/12/19 12:30: Urine Color YELLOW, Urine Clarity CLEAR, Urine pH 6.5, Urine Specific [place] 1.015L, Urine Protein NEGATIVE, Urine Glucose (UA) NEGATIVE, Urine Ketones NEGATIVE, Urine Nitrite NEGATIVE, Urine Bilirubin NEGATIVE, Urine Urobilinogen 0.2, Urine Leukocyte Esterase TRACEH, Urine RBC (Auto) TRACE-I, Urine RBC 2-5H, Urine WBC 2-5, Urine Squamous Epithelial Cells 0-2, Urine Crystals NONE, Urine Bacteria NEGATIVE, Urine Casts NONE, Urine Mucus NEGATIVE, Urine Culture Indicated NO 11/12/19 15:22: Lactic Acid Level 0.79 11/13/19 07:15: White Blood Count 12.7H, Red Blood Count 3.38L, Hemoglobin 9.0L, Hematocrit 29L, Mean Corpuscular Volume 84, Mean Corpuscular Hemoglobin 27, Mean Corpuscular Hemoglobin Concent 32, Red Cell Distribution Width 15.3H, Platelet Count 173, Mean Platelet Volume 10.3, Neutrophils (%) (Auto) 86H, Lymphocytes (%) (Auto) 5L , Monocytes (%) (Auto) 8, Eosinophils (%) (Auto) 1, Basophils (%) (Auto) 0, Neutrophils # (Auto) 10.9H, Lymphocytes # (Auto) 0.6L, Monocytes # (Auto) 1.0, Eosinophils # (Auto) 0.2, Basophils # (Auto) 0.0, Sodium Level 136, Potassium Level 4.4, Chloride Level 107, Carbon Dioxide Level 22, Anion Gap 7, Blood Urea Nitrogen 22H, Creatinine 0.93, Estimat Glomerular Filtration Rate > 60, BUN/Creatinine Ratio 24, Glucose Level 122H, Calcium Level 9.1 Microbiology 11/11/19 Urine Culture - Preliminary, Resulted Gram Negative Emerson 11/11/19 Influenza Types A,B Antigen (SOILA) - Final, Complete 11/11/19 Blood Culture - Preliminary, Resulted Gram Negative Emerson See Comments Assessment/Plan Assessment/Plan Assess & Plan/Chief Complaint UTI. Flulike syndrome leukopenia. Diabetes. Constipation. White blood cell count 1600 today 16,000. Anemia . 11/13/2019. UTI. Positive blood cultures. Diabetes. Anemia. Anxiety. Clinical Quality Measures Admission Status Admission Dx UTI. Weakness. Flulike syndrome. DVT/VTE Risk/Contraindication: Risk Factor Score Per Nursin RFS Level Per Nursing on Admit: 4+=Very High Contraindications-Pharm: Other *list below* TERRI TAVAREZ DO Nov 13, 2019 08:30
[2019-11-13] MEDS: polyethylene glycoL POWDER 17 GM (MIRALAX) PACK PO SCH (09:26)
[2019-11-13] MEDS: GABAPENTIN 600 MG (NEURONTIN) TAB PO SCH ×2 (09:33→22:12)
[2019-11-13] MEDS: ALPRAZolam 0.25 MG (XANAX) TAB PO PRN (09:33)
[2019-11-13] MEDS: CARVEDILOL 12.5 MG (COREG) TABLET PO SCH ×2 (09:33→20:46)
[2019-11-13] MEDS: ONDANSETRON 4 MG (ZOFRAN) ORAL DISSOLVE TAB PO SCH ×3 (09:33→20:46)
[2019-11-13] MEDS: CLOPIDOGREL 75 MG (PLAVIX) TABLET PO SCH (09:33)
[2019-11-13] MEDS: cefTRIAXone 1,000 MG/SWFI 10 ML IV PUSH IV SCH ×2 (09:33)
--- NOTE | 2019-11-13 09:47 | Physical Therapy Daily Note ---
PT Daily Note-Current Subjective Patients present and initially refuses treatment for the day. Patients appeared frustrated stating that "he came in constipated and they have done nothing for him". Asked patient if he prefers to be in wheelchair and bed and states that he spends his whole day in the wheelchair usually so he agreed to transfer to wheelchair. Appearance Patient in wheelchair with bedside table and call light within reach. Nursing present administering medication. Mental Status Patient Orientation: Person, Place, Time, Situation Attachments: Oxygen, IV Transfers SCALE: Activities may be completed with or without assistive devices. 7-Uaregaahjk-jpqlohp completes the activity by him/herself with no assistance from a helper. 5-Set-up or Clean-up Assistance-helper sets up or cleans up; patient completes activity. [place] assists only prior to or following the activity. 4-Supervision or Touching Assistance-helper provides verbal cues and/or touching/steadying and/or contact guard assistance as patient completes activity. Assistance may be provided throughout the activity or intermittently. 3-Partial/Moderate Assistance-helper does LESS THAN HALF the effort. [place] lifts, holds or supports trunk or limbs, but provides less than half the effort. 2-Substantial/Maximal Assistance-helper does MORE THAN HALF the effort. [place] lifts or holds trunk or limbs and provides more than half the effort. 3-Yfwwsevuy-gkcnjn does ALL the effort. Patient does none of the effort to complete the activity. Or, the assistance of 2 or more helpers is required for the patient to complete the activity. If activity was not attempted, code reason: 7-Patient Refused. 9-Not Applicable-not attempted and the patient did not perform the activity before the current illness, exacerbation or injury. 10-Not Attempted due to Environmental Limitations-(lack of equipment, weather restraints, etc.). 88-Not Attempted due to Medical Conditions or Safety Concerns. Roll Left & Right (QC): 1 Lying to Sitting/Side of Bed(Q: 1 Chair/Dqq-nf-Baszp Xfer(QC): 1 (Using slide board, assist x 2 people) Gait Training Does the Patient Walk?: No and Walking Goal NOT indicated Exercises Seated Therapy Exercises: Long arc quads (AAROM), Hip flexion (AAROM) Treatments Seated RLE AAROM, transfer, bed mobility. Assessment Patient is unable to use BUE due to pain and due to that is dependent for bed mobility and transfer with slide board to wheelchair. When hand is touched p atient states it hurts very much and to not do that again. Patient is unable to maintain seated upright posture EOB without assistance. PT Croze Machine Operator Goals Croze Machine Operator Goals PT Senior Living Goals Time Frame: Nov 20, 2019 Roll Left & Right (QC): 3 Sit to Lying (QC): 3 Lying-Sitting on Side/Bed(QC): 3 Chair/Cyo-ls-Ttrsh Xfer(QC): 3 Toilet Transfer (QC): 3 PT Plan Problem List Problem List: Activity Tolerance, Functional Strength, Safety, Balance, Transfer, Bed Mobility, ROM Treatment/Plan Treatment Plan: Continue Plan of Care Treatment Plan: Bed Mobility, Education, Functional Activity Miranda, Functional Strength, Safety, Therapeutic Exercise, Transfers Treatment Duration: Nov 20, 2019 Frequency: 5 times per week Estimated Hrs Per Day: .25 hour per day Safety Risks/Education Patient Education: Transfer Techniques Teaching Recipient: Patient, Family Discharge Recommendations Therapy Discharge Recommendati: Other, See Comments (retirement facility) Time/GCodes Time In: 918 Time Out: 935 Total Billed Treatment Time: 17 Total Billed Treatment 1 visit FA 17 MARYANN MARQUEZ PT Nov 13, 2019 09:47
--- NOTE | 2019-11-13 10:59 | Occupational Therapy Eval ---
OT Evaluation-General/PLF Medical Diagnosis Admission Date Nov 12, 2019 at 09:00 Medical Diagnosis: Bronchitis/ UTI Onset Date: Nov 12, 2019 Therapy Diagnosis Therapy Diagnosis: Decreased UE strength/ ADL status Height/Weight Height (Feet): 5 Height (Inches): 9.00 Weight (Pounds): 139 Weight (Ounces): 0.0 Precautions Precautions/Isolations: Droplet Isolation, Fall Prevention Safety Interventions: None Weight Bear Status Pt's L LE amputated, ambulates in w/c. Referral Physician: Thuan Referral Reason: Activity Tolerance, Self Care, Evaluation/Treatment, Strengthening/ROM Medical History Pertinent Medical History: Arthritis, CAD, DM, HTN, Neuropathy, PVD Current History Pt resident of [facility]. Pt had fever and was sent to ER, bronchitis and UTI dx. Reviewed History: Yes Social History Home: Prison ADL-Prior Level of Function SCALE: Activities may be completed with or without assistive devices. 7-Baolwzixzx-yqwchlg completes the activity by him/herself with no assistance from a helper. 5-Set-up or Clean-up Assistance-helper sets up or cleans up; patient completes activity. [place] assists only prior to or following the activity. 4-Supervision or Touching Assistance-helper provides verbal cues and/or touching/steadying and/or contact guard assistance as patient completes activity. Assistance may be provided throughout the activity or intermittently. 3-Partial/Moderate Assistance-helper does LESS THAN HALF the effort. [place] lifts, holds or supports trunk or limbs, but provides less than half the effort. 2-Substantial/Maximal Assistance-helper does MORE THAN HALF the effort. [place] lifts or holds trunk or limbs and provides more than half the effort. 8-Hxjltvruh-kffrwg does ALL the effort. Patient does none of the effort to complete the activity. Or, the assistance of 2 or more helpers is required for the patient to complete the activity. If activity was not attempted, code reason: 7-Patient Refused. 9-Not Applicable-not attempted and the patient did not perform the activity before the current illness, exacerbation or injury. 10-Not Attempted due to Environmental Limitations-(lack of equipment, weather restraints, etc.). 88-Not Attempted due to Medical Conditions or Safety Concerns. ADL PLOF Comments Pt resident of [facility], states he requires assist with all ADLs and functional transfers. Self Care: Dependent Functional Cognition: Independent DME/Equipment Comments utilizes w/c, slide board and [facility] equipment. Drive Self: No OT Current Status Subjective Pt seen up in w/c. states moderate pain in back. Pt's present through start of session. Pt agreeable to OT eval/ treat. Mental Status/Objective Patient Orientation: Person, Place, Situation Attachments: IV Current Glasses/Contacts: No Hearing Aids: No Dentures/Partials: No Hand Dominance: Right Upper Extremity ROM Decreased bilaterally, shoulder flexion R~90*, L ~70*. R elbow flexion WFL, L elbow flexion to ~60*. Pt unable to complete thumb to pinkie opposition. States pain and PROM not tested. Upper Extremity Coordination WFL digits 1-3, unable to reach 4-5 digit with opposition Upper Extremity Sensation States immense pain during light touch at start of session(within fingers) During sensory testing, pt's fingers touched and pt does not express pain. Pt's states it causes immense pain post-touching. Upper Extremity Strength Decreased bilaterally Wealth Management Director strength weak Edema: LLE pitting edema ADL-Treatment Eating (QC): 4 (States can eat with utensils, requires food prepped. Pt's states that [facility] "just provides the tubing pieces," (built up handles). educated that we provide same. begins to discuss the use and inability for [facility] to provide adaptive utensils, pt asked question on swelling during observation, pt's states OT should not dismiss her comment of AE and leaves room. ) Oral Hygiene (QC): 4 (Pt states is able to complete but has taken away his "stiff toothbrushes" and replaced with thicker ones. Educated on use of built up handles over his stiffer/ slender toothbrush handles. ) Shower/Bathe Self (QC): 2 (Based on pt's function, pt would be max A for sponge bath.) On/Off Footwear (QC): 1 (TD- pt and state inability to lean forward or pt will fall out) Toileting Hygiene (QC): 1 (Based on pt's mobility and UE function.) Other Treatments Pt and provide hx. Pt states he is in some additional pain, states he has had pain meds. states it's probably from pt not sitting up through day. Pt and educated on OT role and evaluation process. Pt denies all ADLs, states his just washed face and does not want to clean up. Pt states he has needed assist for all ADLs and functional transfers with slide board. Pt's leaves abruptly through session. Pt educated on role throughout acute stay, pt agrees to focus on UE strength and adaptive equipment for increased IND. Pt educated on use of hand sponge to increase brand leader/ pinch/ back strength. Pt return- demonstrates, states he utilizes stress balls at [place]. Pt left in w/c with call light within reach and all needs met. Questions answered. Education OT Patient Education: Exercise program, Home exercise program, Instructions to caregiver, Modified ADL techniques, Purpose of tx/functional activities, Use of adapted equipment Teaching Recipient: Patient, Significant Other Teaching Methods: Demonstration, Discussion Response to Teaching: Verbalize Understanding, Return Demonstration OT Technical Account Representative Goals Fpc Goals Time Frame: Nov 20, 2019 Eating (QC): 6 (mod I) Oral Hygiene (QC): 6 (Mod I) Toileting Hygiene (QC): 2 Shower/Bathe Self (QC): 2 Upper Body Dressing (QC): 5 (s/u) Lower Body Dressing (QC): 2 On/Off Footwear (QC): 2 Additional Goals: 1-Demonstrate ADL Tasks, 2-Verbalize Understanding, 3- ImproveStrength/Miranda 1=Demonstrate adherence to instructed precautions during ADL tasks. 2=Patient will verbalize/demonstrate understanding of assistive devices/mod ifications for ADL. 3=Patient will improve strength/tolerance for activity to enable patient to perform ADL's. OT Education/Plan Problem List/Assessment Assessment: Decreased Activ Tolerance, Decreased UE Strength, Dependent Transfers, Edema, Impaired Coordination, Impaired Funct Balance, Impaired I ADL's, Impaired Self-Care Skills, Restricted Funct UE ROM Discharge Recommendations Plan/Recommendations: Continue POC Therapy Discharge Recommendati: 24 Hour Supervision, Post Acute OT Treatment Plan/Plan of Care Treatment,Training & Education: Yes Patient would benefit from OT for education, treatment and training to promote independence in ADL's, mobility, safety and/or upper extremity function for ADL's. Plan of Care: ADL Retraining, Caregiver Training, Functional Mobility, UE Funct Exercise/Act Treatment Duration: Nov 20, 2019 Frequency: 5 times per week Estimated Hrs Per Day: .25 hour per day Agreement: Yes Rehab Potential: Guarded Time/GCodes Start Time: 10:15 Stop Time: 10:39 Total Time Billed (hr/min): 24 Billed Treatment Time 1, DENEEN GOLDBERG (24) KIMBERLY NUNN OTR Nov 13, 2019 10:59
--- NOTE | 2019-11-13 11:59 | NUR ---
CM/SS: Late entry - 11-12-2019 - Visited with pt and spouse as to plan for discharge. Plan: Pt will return to [facility] when appropriate. Family are requesting, In patient rehab for pt. It is unclear if pt will meet criteria for in patient rehab. Summary: Visited with spouse initially as pt is sound asleep. She seems frustrated today as she wants pt to go home. He has been a [facility] for 10 months. Discuss home community based services and pt may qualify for those services in the home. She seems interested. Pt reports wanting to go to rehab and he is motivated. Discussed him not meeting the criteria for rehab. He seems frustrated as to not being able to get stronger. Pt encouraged to get to feeling better and this worker will follow up at a later time. Call to [facility] - to determine worker. Call from [facility] - Huma Ahn -[phone]- she is pts worker and does indicate he should quality for in home services and she will reach out the the personal injury specialist and get back with this worker.
[2019-11-13 12:00] VITALS: BP 141/68
--- NOTE | 2019-11-13 12:15 | NUR ---
CM/SS: Follow up phone call to Huma Ahn with [facility] - [phone]. Message left.
--- NOTE | 2019-11-13 14:25 | Physician Query Clarification ---
PQ-Intro New Diagnosis Admission/Discharge Admission Date: Nov 12, 2019 at 09:00 Discharge Date: The medical record reflects the following clinical scenario: History/Risk Factors: UTI/hematuria Flu-like symptoms hypotension Clinical Findings: WBC 1.8, Temp 39.5, Pulse 123, Resp 20, BP 118/58. Urine culture >100,000/ML Morganella morganii and positive blood culture-Gram negative Emerson Morganella Species. Treatment; IV Ceftriaxone Sodium Question: What condition best reflects the above clinical scenario? Please document a response in the Progress Noter or Discharge Summary. 1. Sepsis due to UTI from Morganella morganii. 2. UTI only due to Morganella morganii. 3. Other, with explanation of the clinical findings. 4. Clinically undetermined, no explanation for the clinical findings. PHYSICIAN RESPONSE What condition reflects above: 1 Please remember a lack of response to the above will prompt a phone page by CDI/Coding staff. In responding to this query, please exercise your independent professional judgment. The purpose of this communication is to more accurately reflect the complexity of your patients condition. The fact that a question is asked does not imply that any particular answer is desired or expected. Thank you for your timely response to this clarification. Requestors name: Violeta Khanna [facility] Phone # ext [phone] or [phone] THIS PHYSICIAN QUERY FORM IS A PERMANENT PART OF THE MEDICAL RECORD VIOLETA KHANNA Nov 13, 2019 14:25 TERRI TAVAREZ DO Nov 16, 2019 07:01
[2019-11-13 16:00] VITALS: BP 171/88
[2019-11-13] MEDS: TAMSULOSIN 0.4 MG (FLOMAX) CAP PO SCH (17:37)
[2019-11-13] MEDS: GABAPENTIN 300 MG (NEURONTIN) CAP PO SCH (17:37)
[2019-11-13 20:00] VITALS: BP 169/74
[2019-11-13] MEDS: FINASTERIDE (PROSCAR) 5 MG TAB PO SCH (20:45)
[2019-11-13] MEDS: DOCUSATE SODIUM 100 MG (COLACE) CAP PO SCH (20:45)
[2019-11-13] MEDS: HYDROcodone/APAP 7.5 MG/325 MG (LORTAB, LORCET PLUS) TABLET PO SCH (20:46)
[2019-11-13] MEDS: ACETAMINOPHEN 325 MG TABLET PO PRN (21:20)
[2019-11-14] VITALS: BP 150/71
[2019-11-14] MEDS: ALPRAZolam 0.25 MG (XANAX) TAB PO PRN ×2 (03:50→15:26)
[2019-11-14] MEDS: NS IV 1000 ML 1,000 ML IV SCH ×3 (03:50→14:06)
[2019-11-14 04:00] VITALS: BP 143/63
[2019-11-14 05:45] LABS: HEMOGLOBIN 8.9 G/DL (13.3-17.7); MEAN PLATELET VOLUME 10.8 FL (7.4-10.4); WHITE BLOOD COUNT 8.8 10^3/uL (4.3-11.0)
[2019-11-14 06:01] LABS: BUN/CREATININE RATIO 19; CALCIUM 9.1 MG/DL (8.5-10.1); CARBON DIOXIDE 23 MMOL/L (21-32); CHLORIDE 110 MMOL/L (98-107); CREATININE SERUM 0.78 MG/DL (0.60-1.30); GFR ESTIMATED > 60; GLUCOSE 102 MG/DL (70-105); POTASSIUM 4.3 MMOL/L (3.6-5.0); SODIUM 138 MMOL/L (135-145)
[2019-11-14] MEDS: FUROSEMIDE 40 MG (LASIX) TAB PO SCH (06:02)
[2019-11-14] MEDS: hydrALAZINE (APRESOLINE) 25 MG TAB PO SCH ×3 (06:02→21:59)
[2019-11-14] MEDS: CARVEDILOL 12.5 MG (COREG) TABLET PO SCH ×2 (08:07→20:19)
[2019-11-14] MEDS: polyethylene glycoL POWDER 17 GM (MIRALAX) PACK PO SCH (08:07)
[2019-11-14] MEDS: CLOPIDOGREL 75 MG (PLAVIX) TABLET PO SCH (08:07)
[2019-11-14] MEDS: HYDROcodone/APAP 7.5 MG/325 MG (LORTAB, LORCET PLUS) TABLET PO PRN ×2 (08:08→15:53)
[2019-11-14] MEDS: ONDANSETRON 4 MG (ZOFRAN) ORAL DISSOLVE TAB PO SCH ×3 (08:08→20:19)
[2019-11-14] MEDS: GABAPENTIN 600 MG (NEURONTIN) TAB PO SCH ×2 (08:08→21:59)
[2019-11-14] MEDS: KCL 10 MEQ TAB (MICRO K) PO SCH (08:12)
[2019-11-14 08:15] VITALS: BP 157/76
[2019-11-14] MEDS: cefTRIAXone 1,000 MG/SWFI 10 ML IV PUSH IV SCH ×2 (10:06)
[2019-11-14 12:00] VITALS: BP 156/97
--- NOTE | 2019-11-14 14:24 | Progress Note ---
Subjective Subjective Date Seen by Provider: Nov 14, 2019 Time Seen by Provider: 13:30 No overnight events. Discharge planning started- SW is working on what services are available for him to go home. Likely will go back to [facility]. Review of Systems General: No Chills HEENT: No Head Aches Pulmonary: No Dyspnea, No Cough Cardiovascular: No: Chest Pain, Palpitations Gastrointestinal: No: Nausea, Vomiting Genitourinary: No Dysuria, No Frequency Neurological: Weakness Objective Exam Vital Signs Vital Signs Date Time Temp Pulse Resp B/P (MAP) Pulse Ox O2 Delivery O2 Flow Rate FiO2 11/14/19 08:15 37.2 103 18 157/76 (103) 97 Nasal Cannula 2.50 11/14/19 08:00 Nasal Cannula 2.50 11/14/19 04:00 37.4 100 18 143/63 (89) 98 Nasal Cannula 2.00 11/14/19 00:00 37.6 110 20 150/71 (97) 94 Nasal Cannula 2.00 11/13/19 21:50 37.3 11/13/19 21:20 37.4 11/13/19 20:00 37.6 96 20 169/74 (105) 88 Nasal Cannula 2.00 11/13/19 20:00 Nasal Cannula 2.00 11/13/19 16:00 37.4 99 20 171/88 (115) 97 Nasal Cannula 2.00 I & O 11/14/19 07:00 Intake Total 2595 ml Output Total 2705 ml Balance -110 ml General Appearance: No Apparent Distress Eyes: Bilateral Eye Normal Inspection, Bilateral Eye PERRL HEENT: Normal ENT Inspection Neck: Full Range of Motion, Normal Inspection Respiratory: Lungs Clear, No Accessory Muscle Use, No Respiratory Distress Cardiovascular: Regular Rate, Rhythm, No Murmur Gastrointestinal: Non Tender, Soft Back: No CVA Tenderness Extremity: Other (Amputated left leg (above knee)) Neurologic/Psychiatric: Alert, Normal Mood/Affect Skin: Normal Color, Warm/Dry Results Lab Laboratory Tests 11/14/19 05:30: White Blood Count 8.8, Red Blood Count 3.34L, Hemoglobin 8.9L, Hematocrit 28L, M radha Corpuscular Volume 83, Mean Corpuscular Hemoglobin 27, Mean Corpuscular Hemoglobin Concent 32, Red Cell Distribution Width 15.0H, Platelet Count 200, Mean Platelet Volume 10.8H, Sodium Level 138, Potassium Level 4.3, Chloride Level 110H, Carbon Dioxide Level 23, Anion Gap 5, Blood Urea Nitrogen 15, Creatinine 0.78, Estimat Glomerular Filtration Rate > 60, BUN/Creatinine Ratio 19, Glucose Level 102, Calcium Level 9.1 Microbiology 11/11/19 Urine Culture - Final, Complete Morganella morganii 11/11/19 Blood Culture - Preliminary, Resulted No growth 11/11/19 Influenza Types A,B Antigen (SOILA) - Final, Complete Assessment/Plan Assessment/Plan Assessment and Plan 11/14/19- continue rocephin as it will cover the morganella that is positive on blood culture and urine culture. Continue discharge planning VCV vs home- Monitor urinary retention based on urine output. Pt is on flomax and proscar. Dispo: improving. discharge planning. Problems: (1) UTI (urinary tract infection) (2) Sepsis (3) Weakness Assessment & Plan: PT/OT --he has been evaluated by inpatient rehab and does not meet criteria. (4) HLD (hyperlipidemia) Assessment & Plan: continue statin (5) BPH (benign prostatic hyperplasia) Qualifiers: Qualified Codes: N40.1 - Benign prostatic hyperplasia with lower urinary tract symptoms; R33.8 - Other retention of urine Assessment & Plan: monitoring urine output Clinical Quality Measures DVT/VTE Risk/Contraindication: Risk Factor Score Per Nursin RFS Level Per Nursing on Admit: 4+=Very High Contraindications-Pharm: Other *list below* KIKA GUZMAN MD Nov 14, 2019 14:24
[2019-11-14] MEDS: GABAPENTIN 300 MG (NEURONTIN) CAP PO SCH (15:52)
[2019-11-14 16:00] VITALS: BP 176/86
[2019-11-14] MEDS: TAMSULOSIN 0.4 MG (FLOMAX) CAP PO SCH (17:04)
[2019-11-14] MEDS: DOCUSATE SODIUM 100 MG (COLACE) CAP PO SCH (20:18)
[2019-11-14] MEDS: HYDROcodone/APAP 7.5 MG/325 MG (LORTAB, LORCET PLUS) TABLET PO SCH (20:19)
[2019-11-14] MEDS: FINASTERIDE (PROSCAR) 5 MG TAB PO SCH (20:19)
[2019-11-15] VITALS: BP 149/67
[2019-11-15] MEDS: NS IV 1000 ML 1,000 ML IV SCH ×3 (00:18→18:00)
[2019-11-15] MEDS ORDERED: ALPRAZolam 0.25 MG (XANAX) TAB ONE (01:27)
[2019-11-15] MEDS: ALPRAZolam 0.25 MG (XANAX) TAB PO PRN ×2 (01:28→14:54)
--- NOTE | 2019-11-15 01:42 | NUR ---
DROPPED PRN XANAX. WASTED IN OMNICELL. NO NEW ORDER.
--- NOTE | 2019-11-15 05:19 | NUR ---
PT HAS VOIDED TWICE DURING THE NIGHT. HE STRUGGLES TO START URINATING IN URINAL. WE HAVE DISCUSSED STRAIGHT CATHING HIM IF HE IS NOT ABLE TO GO. HE VOIDED ON HIS OWN 400 AND 600 CC.
[2019-11-15] MEDS: hydrALAZINE (APRESOLINE) 25 MG TAB PO SCH ×3 (06:02→21:14)
[2019-11-15 08:00] VITALS: BP 160/80
[2019-11-15] MEDS: polyethylene glycoL POWDER 17 GM (MIRALAX) PACK PO SCH (08:18)
[2019-11-15] MEDS: GABAPENTIN 600 MG (NEURONTIN) TAB PO SCH ×2 (08:18→21:19)
[2019-11-15] MEDS: CARVEDILOL 12.5 MG (COREG) TABLET PO SCH ×2 (08:18→21:14)
[2019-11-15] MEDS: ONDANSETRON 4 MG (ZOFRAN) ORAL DISSOLVE TAB PO SCH ×3 (08:18→21:15)
[2019-11-15] MEDS: CLOPIDOGREL 75 MG (PLAVIX) TABLET PO SCH (08:18)
[2019-11-15] MEDS: cefTRIAXone 1,000 MG/SWFI 10 ML IV PUSH IV SCH ×2 (08:19)
--- NOTE | 2019-11-15 08:39 | Progress Note ---
Subjective Subjective Date Seen by Provider: Nov 15, 2019 Time Seen by Provider: 09:55 74 yo M admitted for UTI, hematuria. He still has trouble urinating but was able to urine 600ml and 400ml. WBC this AM improved. Hgb high 8s, low 9s- Review of Systems General: No Chills HEENT: No Head Aches Pulmonary: No Dyspnea, No Cough Cardiovascular: No: Chest Pain, Palpitations Gastrointestinal: No: Nausea, Vomiting Genitourinary: No Dysuria, No Frequency Neurological: Weakness Objective Exam Vital Signs Vital Signs Date Time Temp Pulse Resp B/P (MAP) Pulse Ox O2 Delivery O2 Flow Rate FiO2 11/15/19 00:00 37.7 107 20 149/67 (94) 94 Nasal Cannula 2.00 11/14/19 20:06 Nasal Cannula 2.50 11/14/19 16:00 37.0 109 20 176/86 (116) 98 Nasal Cannula 2.00 11/14/19 12:00 37.0 104 18 156/97 (116) 97 Nasal Cannula 2.50 I & O 11/15/19 07:00 Intake Total 3330 ml Output Total 4250 ml Balance -920 ml General Appearance: No Apparent Distress Eyes: Bilateral Eye Normal Inspection, Bilateral Eye PERRL HEENT: Normal ENT Inspection Neck: Full Range of Motion, Normal Inspection Respiratory: Lungs Clear, No Accessory Muscle Use, No Respiratory Distress Cardiovascular: Regular Rate, Rhythm, No Murmur Gastrointestinal: Non Tender, Soft Back: No CVA Tenderness Extremity: Other (Amputated left leg (above knee)) Neurologic/Psychiatric: Alert, Normal Mood/Affect Skin: Normal Color, Warm/Dry Results Lab Microbiology 11/11/19 Urine Culture - Final, Complete Morganella morganii 11/11/19 Blood Culture - Preliminary, Resulted No growth 11/11/19 Influenza Types A,B Antigen (SOILA) - Final, Complete Assessment/Plan Assessment/Plan Assessment and Plan 11/14/19- continue rocephin as it will cover the morganella that is positive on blood culture and urine culture. Continue discharge planning VCV vs home- Monitor urinary retention based on urine output. Pt is on flomax and proscar. 11/15/2019- condition is about the same as yesterday- Dr. Barger ordered bladder scan and if urinary retention is persisting will place a catheter- he has had a prostatectomy so plan is to perform cystoscopy when he is more stable to further evaluate anatomy vs possible neurogenic bladder. Dispo: improving. discharge planning has been started with case management as there is question of where he will go home (will need services though) or V Dr. Larose will return to service 11/16/19. Problems: (1) UTI (urinary tract infection) (2) Sepsis Assessment & Plan: resolved (3) Weakness Assessment & Plan: PT/OT --he has been evaluated by inpatient rehab and does not meet criteria. (4) HLD (hyperlipidemia) Assessment & Plan: continue statin (5) BPH (benign prostatic hyperplasia) Qualifiers: Qualified Codes: N40.1 - Benign prostatic hyperplasia with lower urinary tract symptoms; R33.8 - Other retention of urine Assessment & Plan: monitoring urine output Clinical Quality Measures DVT/VTE Risk/Contraindication: Risk Factor Score Per Nursin RFS Level Per Nursing on Admit: 4+=Very High Contraindications-Pharm: Other *list below* KIKA GUZMAN MD Nov 15, 2019 08:39
--- NOTE | 2019-11-15 10:39 | Progress Note - Urology ---
Progress Note-Urology Progress Notes/Assess & Plan Progress/Assessment & Plan HAVING DIFFICULTY VOIDING. TOLERATES FLOMAX WELL. DOES NOT HAVE MO. PLAN BLADDER SCAN AND MANAGE ACCORDINGLY. CYSTO IN 2-3 DAYS. PLAN FULLY EXPLAINED TO PATIENT Final Diagnosis URINE RETENTION CLARISSA ELLIOTT MD Nov 15, 2019 10:39
--- NOTE | 2019-11-15 11:42 | CONSULTATION REPORT ---
DATE OF SERVICE: 11/13/2019 ATTENDING PRIMARY CARE PHYSICIAN: Los Larose DO SUMMARY: After reviewing the patient's records, interviewing him, this is a 74-year-old black man admitted with confusion, leukopenia, urinary tract infection and possible flu. I reviewed his history and physical namely, he is allergic to SULFA AND TEMAZEPAM. I reviewed his home medications of which he is on finasteride 5 mg daily, insulin, terazosin 1 mg b.i.d., testosterone 2 pumps daily. The patient said he is on Plavix, but I do not see it on his history. I asked him if he denied any prostate medication or surgery; however, in the history mentioned prostatectomy and TURP. FAMILY HISTORY: Bladder cancer in his mother and prostate cancer in his father. Among other problems he was found to have a postvoid residual of 1200 mL. No catheter was inserted. PHYSICAL EXAM: Deferred at the time of cystoscopy, the patient was sitting on his chair and having breakfast. IMPRESSION: Urinary retention, benign prostatic hyperplasia and/or neurogenic bladder. PLAN: We will start him on Flomax daily. For now, we will continue the Proscar and decide after cystoscopy. Recommend placement of a catheter if continued to have high residual. I just looked in his history; on his allergies, he is allergic to PLAVIX, so that is why probably he is not on it, it is causing him mental confusion along with HYDROMORPHONE AND PRAVASTATIN. Job ID: [id number] DocumentID: [id number] Dictated Date: 11/15/2019 11:05:07 Fender Repairer Date: 11/15/2019 11:41:57 Dictated By: CLARISSA ELLIOTT MD
--- NOTE | 2019-11-15 11:43 | NUR ---
Dr. Barger here to see patient having trouble voiding, ordered bladder scan, done 650 notified orders to insert catheter 16fr, done patient tolerated well
[2019-11-15] MEDS: GABAPENTIN 300 MG (NEURONTIN) CAP PO SCH ×2 (14:54→21:14)
[2019-11-15 16:00] VITALS: BP 183/88
[2019-11-15] MEDS: TAMSULOSIN 0.4 MG (FLOMAX) CAP PO SCH (18:00)
[2019-11-15] MEDS: HYDROcodone/APAP 7.5 MG/325 MG (LORTAB, LORCET PLUS) TABLET PO PRN (19:55)
[2019-11-15] MEDS: FINASTERIDE (PROSCAR) 5 MG TAB PO SCH (21:14)
[2019-11-15] MEDS: HYDROcodone/APAP 7.5 MG/325 MG (LORTAB, LORCET PLUS) TABLET PO SCH (21:15)
[2019-11-15] MEDS: DOCUSATE SODIUM 100 MG (COLACE) CAP PO SCH (21:15)
[2019-11-16] VITALS: BP 113/67
--- NOTE | 2019-11-16 00:02 | NUR ---
OFFERED MULTIPLE TIMES TO PT TO ASSIST HIM TO HIS BED. HE C/O BED NOT BEING COMFORTABLE AND WANTS TO STAY IN HIS W/C. DISCUSSED GIVING HIS BOTTOM A BREAK WITH OFFLOADING. PT STATED HE UNDERSTANDS BUT WANTS TO STAY IN HIS W/C.
[2019-11-16] MEDS: NS IV 1000 ML 1,000 ML IV SCH (04:04)
[2019-11-16] MEDS: hydrALAZINE (APRESOLINE) 25 MG TAB PO SCH ×2 (05:46→14:23)
--- NOTE | 2019-11-16 05:46 | NUR ---
PT BP IS 113/67; DISCUSSED PT HYDRALAZINE THAT IS DUE. HE STATED HE DID NOT WANT TO TAKE IT WITH HIS BP SO LOW. I AGREED WITH PT AND HELD MED.
[2019-11-16 06:36] LABS: BASOPHILS % (AUTO) 0 % (0-10); EOSINOPHILS # (AUTO) 0.4 10^3/uL (0.0-0.3); EOSINOPHILS % (AUTO) 7 % (0-10); HEMATOCRIT 33 % (40-54); HEMOGLOBIN 10.5 G/DL (13.3-17.7); LYMPHOCYTES # (AUTO) 0.9 X 10^3 (1.0-4.0); LYMPHOCYTES % (AUTO) 14 % (12-44); MEAN CORPUSCULAR HEMOGLOBIN 26 PG (25-34); MEAN CORPUSCULAR HGB CONC 32 G/DL (32-36); MEAN CORPUSCULAR VOLUME 82 FL (80-99); MEAN PLATELET VOLUME 10.7 FL (7.4-10.4); MONOCYTES # (AUTO) 0.8 X 10^3 (0.0-1.0); MONOCYTES % (AUTO) 13 % (0-12); NEUTROPHILS # (AUTO) 3.9 X 10^3 (1.8-7.8); NEUTROPHILS % (AUTO) 66 % (42-75); PLATELET COUNT 214 10^3/uL (130-400); RED CELL DISTRIBUTION WIDTH 14.9 % (10.0-14.5)
[2019-11-16] MEDS: CARVEDILOL 12.5 MG (COREG) TABLET PO SCH (07:46)
[2019-11-16] MEDS: FUROSEMIDE 40 MG (LASIX) TAB PO SCH (07:46)
[2019-11-16] MEDS: GABAPENTIN 600 MG (NEURONTIN) TAB PO SCH (07:46)
[2019-11-16] MEDS: KCL 10 MEQ TAB (MICRO K) PO SCH (07:46)
[2019-11-16] MEDS: CLOPIDOGREL 75 MG (PLAVIX) TABLET PO SCH (07:47)
[2019-11-16] MEDS: ALPRAZolam 0.25 MG (XANAX) TAB PO PRN (07:47)
[2019-11-16] MEDS: polyethylene glycoL POWDER 17 GM (MIRALAX) PACK PO SCH (07:47)
[2019-11-16] MEDS: ONDANSETRON 4 MG (ZOFRAN) ORAL DISSOLVE TAB PO SCH ×2 (07:47→14:23)
--- NOTE | 2019-11-16 07:51 | Progress Note ---
Subjective Time Seen by a Provider: 07:48 Subjective/Events-last exam Patient feeling better today. Patient had Casper catheter put in due to urinary retention. UTI and sepsis better Objective Exam Vital Signs Date Time Temp Pulse Resp B/P (MAP) Pulse Ox O2 Delivery O2 Flow Rate FiO2 11/16/19 00:00 37.4 88 20 113/67 (82) 98 Nasal Cannula 2.50 11/15/19 20:23 Nasal Cannula 2.50 11/15/19 16:00 37.6 97 20 183/88 (119) 97 Nasal Cannula 2.50 11/15/19 08:00 Nasal Cannula 2.50 11/15/19 08:00 37.3 101 20 160/80 (106) 97 Nasal Cannula 2.00 I & O 11/16/19 07:00 Intake Total 3590 ml Output Total 2850 ml Balance 740 ml Capillary Refill : Less Than 3 SecondsLess Than 3 Seconds General Appearance: No Apparent Distress, WD/WN HEENT: Normal ENT Inspection Neck: Full Range of Motion, Normal Inspection Respiratory: Lungs Clear, No Accessory Muscle Use, No Respiratory Distress Cardiovascular: Regular Rate, Rhythm, No Murmur Gastrointestinal: non tender, soft Results Lab Laboratory Tests 11/16/19 06:15 Laboratory Tests 11/16/19 06:15: White Blood Count 6.0, Red Blood Count 3.99L, Hemoglobin 10.5L, Hematocrit 33L, Mean Corpuscular Volume 82, Mean Corpuscular Hemoglobin 26, Mean Corpuscular Hemoglobin Concent 32, Red Cell Distribution Width 14.9H, Platelet Count 214, Mean Platelet Volume 10.7H, Neutrophils (%) (Auto) 66, Lymphocytes (%) (Auto) 14 , Monocytes (%) (Auto) 13H, Eosinophils (%) (Auto) 7, Basophils (%) (Auto) 0, N eutrophils # (Auto) 3.9, Lymphocytes # (Auto) 0.9L, Monocytes # (Auto) 0.8, Eosinophils # (Auto) 0.4H, Basophils # (Auto) 0.0 Microbiology 11/11/19 Urine Culture - Final, Complete Morganella morganii 11/11/19 Blood Culture - Preliminary, Resulted No growth 11/11/19 Influenza Types A,B Antigen (SOILA) - Final, Complete Assessment/Plan Assessment/Plan Assess & Plan/Chief Complaint UTI. Flulike syndrome leukopenia. Diabetes. Constipation. White blood cell count 1600 today 16,000. Anemia . 11/13/2019. UTI. Positive blood cultures. Diabetes. Anemia. Anxiety.. . 11/16/2019. UTI. Sepsis due to same organism. Diabetes. Urinary tract retention. Anemia. Anxiety. Patient to have cystoscopy by Dr. davila Clinical Quality Measures Admission Status Admission Dx UTI. Weakness. Flulike syndrome. DVT/VTE Risk/Contraindication: Risk Factor Score Per Nursin RFS Level Per Nursing on Admit: 4+=Very High Contraindications-Pharm: Other *list below* TERRI TAVAREZ DO Nov 16, 2019 07:50
[2019-11-16] MEDS: HYDROcodone/APAP 7.5 MG/325 MG (LORTAB, LORCET PLUS) TABLET PO PRN (07:54)
[2019-11-16 08:00] VITALS: BP 125/62
--- NOTE | 2019-11-16 09:57 | Physical Therapy Daily Note ---
PT Daily Note-Current Subjective Patient has been up in w/c all night per spouse and nursing report. Noted right LE edema and bilateral UE edema. PT encouraged patient to return to bed to offload pressure on bottom and to decrease extremity edema. Pain Numeric Pain Scale: 8 Location: Right, Left Location Body Site: Hand Pain Description: Burning, Chronic, Sharp Mental Status Patient Orientation: Person, Time, Situation Attachments: Casper Catheter Transfers SCALE: Activities may be completed with or without assistive devices. 8-Wuxafhxrea-xqenhkh completes the activity by him/herself with no assistance from a helper. 5-Set-up or Clean-up Assistance-helper sets up or cleans up; patient completes activity. [place] assists only prior to or following the activity. 4-Supervision or Touching Assistance-helper provides verbal cues and/or touching/steadying and/or contact guard assistance as patient completes activity. Assistance may be provided throughout the activity or intermittently. 3-Partial/Moderate Assistance-helper does LESS THAN HALF the effort. [place] lifts, holds or supports trunk or limbs, but provides less than half the effort. 2-Substantial/Maximal Assistance-helper does MORE THAN HALF the effort. [place] lifts or holds trunk or limbs and provides more than half the effort. 4-Nswedwakk-jhgvuq does ALL the effort. Patient does none of the effort to complete the activity. Or, the assistance of 2 or more helpers is required for the patient to complete the activity. If activity was not attempted, code reason: 7-Patient Refused. 9-Not Applicable-not attempted and the patient did not perform the activity before the current illness, exacerbation or injury. 10-Not Attempted due to Environmental Limitations-(lack of equipment, weather restraints, etc.). 88-Not Attempted due to Medical Conditions or Safety Concerns. Roll Left & Right (QC): 1 Sit to Lying (QC): 1 Lying to Sitting/Side of Bed(Q: 1 Chair/Wec-ll-Rfurk Xfer(QC): 1 slide board transfer w/c to bed and dependent assist for all bed mobility to side lying left to relieve gluteal pressure. Exercises Supine Ex: Ankle pumps, Heel Slides, Straight leg raise, Hip abd/add Supine Reps: 15 (PROM right LE) Assessment Patient continues with weakness and dependent assist with all mobility. Right foot elevated with pillow to relieve heel/ankle pressure. PT Mcfp Goals Mcfp Goals PT Network Contract Manager Goals Time Frame: Nov 20, 2019 Roll Left & Right (QC): 3 Sit to Lying (QC): 3 Lying-Sitting on Side/Bed(QC): 3 Chair/Rzx-ph-Iouhf Xfer(QC): 3 Toilet Transfer (QC): 3 PT Plan Treatment/Plan Treatment Plan: Continue Plan of Care Treatment Plan: Bed Mobility, Education, Functional Activity Miranda, Functional Strength, Safety, Therapeutic Exercise, Transfers Treatment Duration: Nov 20, 2019 Frequency: 5 times per week Estimated Hrs Per Day: .25 hour per day Time/GCodes Time In: 848 Time Out: 911 Total Billed Treatment Time: 23 Total Billed Treatment 1 visit EX 9 min FA 14 min MARYANN MARQUEZ PT Nov 16, 2019 09:57
[2019-11-16] MEDS ORDERED: TMSL.4C PO (10:51)
[2019-11-16] MEDS ORDERED: ACET325T49 PO (10:51)
--- NOTE | 2019-11-16 11:15 | NUR ---
Important Message from Medicare presented, reviewed, signed and placed in patient chart. Patient and voiced no intention to appeal and deny any needs or further questions at this time.
--- NOTE | 2019-11-16 11:49 | Discharge Inst-Skilled Nursing ---
Discharge Inst-Skilled NF Reconcile Patient Problems Problems Reviewed?: Yes Consult/Follow Up/Orders Skilled NF Admit to: [facility] Certification (SNF) I certify that SNF services are required to be given on an inpatient basis because of the above named patient's need for prison care on a continuing basis for the conditions(s) for which he/she was receiving inpatient hospital services prior to his/her transfer to the SNF. Penitentiary Facility Order: Nursing Services, Fabrication And Layout Craftsman-Evaluate & Treat, Physical Therapy-Evaluate & Treat Oxygen Delivery Method: Nasal Cannula New & Resume Previous Orders Los Tavarez Nov 16, 2019 11:49 LOS TAVAREZ DO Nov 16, 2019 11:49
[2019-11-16 15:34] VITALS: BP 125/62
--- NOTE | 2019-11-17 07:38 | Discharge Summary ---
Diagnosis/Chief Complaint Date of Admission Nov 12, 2019 at 09:00 Date of Discharge Nov 16, 2019 at 15:36 Discharge Date: Nov 16, 2019 Discharge Time: 07:36 Discharge Diagnosis UTI. Bacteremia. Sepsis. Morganelli morgani. Constipation. Urinary retention. Weakness. Diabetes. Reason Hospital Visit Patient resident of a long-term. Patient weak and still slower in speaking. Patient acting like his usual self. Patient sent out to the emergency room. UA shows UTI. Patient has leukopenia white blood cell count 1800. Patient presents flu like Discharge Summary Consultations Urology Discharge Physical Examination Allergies: Coded Allergies: Sulfa (Sulfonamide Antibiotics) (Verified Allergy, Severe, HIVES, 07/19/19) temazepam (Verified Allergy, Severe, 07/19/19) MENTAL CONFUSION hydromorphone (Verified Allergy, Unknown, 07/19/19) pravastatin (Verified Adverse Reaction, Severe, RASH, 07/19/19) clopidogrel (Verified Adverse Reaction, Unknown, 07/19/19) Vitals & I&Os Vital Signs Date Time Temp Pulse Resp B/P (MAP) Pulse Ox O2 Delivery O2 Flow Rate FiO2 11/16/19 15:34 37.1 94 20 125/62 97 Nasal Cannula 2.50 Hospital Course Patient in hospital did improve. Patient was able to be discharged back to long-term. Patient on outpatient will have cystoscopy by urologist. 2 office next week Labs (last 24 hrs) Laboratory Tests 11/11/19 07:54: White Blood Count 1.8L, Red Blood Count 4.10L, Hemoglobin 10.8L, Hematocrit 34L, Mean Corpuscular Volume 82, Mean Corpuscular Hemoglobin 26, Mean Corpuscular Hemoglobin Concent 32, Red Cell Distribution Width 14.9H, Platelet Count 205, Mean Platelet Volume 10.0, Sodium Level 137, Potassium Level 4.2, Chloride Level 103, Carbon Dioxide Level 26, Anion Gap 8, Blood Urea Nitrogen 32H, Creatinine 1.32H, Estimat Glomerular Filtration Rate > 60, BUN/Creatinine Ratio 24, Glucose Level 116H, Lactic Acid Level 1.32, Calcium Level 9.8, Corrected Calcium 10.0, Total Bilirubin 0.6, Aspartate Amino Transf (AST/SGOT) 13, Alanine Aminotransferase (ALT/SGPT) 17, Alkaline Phosphatase 71, Total Protein 6.9, Albumin 3.7 11/11/19 09:30: Urine Color YELLOW, Urine Clarity CLEAR, Urine pH 8.0, Urine Specific [place]chard 1.020, Urine Protein 1+H, Urine Glucose (UA) NEGATIVE, Urine Ketones NEGATIVE, Urine Nitrite POSITIVEH, Urine Bilirubin NEGATIVE, Urine Urobilinogen 0.2, Urine Leukocyte Esterase NEGATIVE, Urine RBC (Auto) NEGATIVE, Urine RBC 2-5H, Urine WBC 2-5, Urine Squamous Epithelial Cells 0-2, Urine Crystals NONE, Urine Bacteria MODERATEH, Urine Casts NONE, Urine Mucus NEGATIVE, Urine Culture Indicated YES 11/11/19 16:46: Glucometer 116H 11/12/19 06:32: White Blood Count 16.1H, Red Blood Count 3.32L, Hemoglobin 8.7L, Hematocrit 28L, Mean Corpuscular Volume 84, Mean Corpuscular Hemoglobin 26, Mean Corpuscular Hemoglobin Concent 31L, Red Cell Distribution Width 15.7H, Platelet Count 173, Mean Platelet Volume 11.3H, Sodium Level 138, Potassium Level 4.6, Chloride Level 109H, Carbon Dioxide Level 23, Anion Gap 6, Blood Urea Nitrogen 32H, Creatinine 1.25, Estimat Glomerular Filtration Rate > 60, BUN/Creatinine Ratio 26, Glucose Level 81, Calcium Level 9.0, Corrected Calcium 9.7, Total Bilirubin 0.5, Aspartate Amino Transf (AST/SGOT) 16, Alanine Aminotransferase (ALT/SGPT) 15, Alkaline Phosphatase 52, Total Protein 6.0L, Albumin 3.1L, Neutrophils (%) (Auto) 86H, Lymphocytes (%) (Auto) 4L, Monocytes (%) (Auto) 9, Eosinophils (%) (Auto) 0, Basophils (%) (Auto) 0, Neutrophils # (Auto) 13.9H, Lymphocytes # (Auto) 0.7L, Monocytes # (Auto) 1.5H, Eosinophils # (Auto) 0.0, Basophils # (Auto) 0.0, Neutrophils % (Manual) 85, Lymphocytes % (Manual) 4, Monocytes % (Manual) 5, Eosinophils % (Manual) 1, Basophils % (Manual) 0, Band Neutrophils 5, Blood Morphology Comment NORMAL 11/12/19 12:30: Urine Color YELLOW, Urine Clarity CLEAR, Urine pH 6.5, Urine Specific [place] 1.015L, Urine Protein NEGATIVE, Urine Glucose (UA) NEGATIVE, Urine Ketones NEGATIVE, Urine Nitrite NEGATIVE, Urine Bilirubin NEGATIVE, Urine Urobilinogen 0.2, Urine Leukocyte Esterase TRACEH, Urine RBC (Auto) TRACE-I, Urine RBC 2-5H, Urine WBC 2-5, Urine Squamous Epithelial Cells 0-2, Urine Crystals NONE, Urine Bacteria NEGATIVE, Urine Casts NONE, Urine Mucus NEGATIVE, Urine Culture Indicated NO 11/12/19 15:22: Lactic Acid Level 0.79 11/13/19 07:15: White Blood Count 12.7H, Red Blood Count 3.38L, Hemoglobin 9.0L, Hematocrit 29L, Mean Corpuscular Volume 84, Mean Corpuscular Hemoglobin 27, Mean Corpuscular Hemoglobin Concent 32, Red Cell Distribution Width 15.3H, Platelet Count 173, Mean Platelet Volume 10.3, Neutrophils (%) (Auto) 86H, Lymphocytes (%) (Auto) 5L , Monocytes (%) (Auto) 8, Eosinophils (%) (Auto) 1, Basophils (%) (Auto) 0, Neutrophils # (Auto) 10.9H, Lymphocytes # (Auto) 0.6L, Monocytes # (Auto) 1.0, Eosinophils # (Auto) 0.2, Basophils # (Auto) 0.0, Sodium Level 136, Potassium Level 4.4, Chloride Level 107, Carbon Dioxide Level 22, Anion Gap 7, Blood Urea Nitrogen 22H, Creatinine 0.93, Estimat Glomerular Filtration Rate > 60, BUN/Creatinine Ratio 24, Glucose Level 122H, Calcium Level 9.1 11/14/19 05:30: White Blood Count 8.8, Red Blood Count 3.34L, Hemoglobin 8.9L, Hematocrit 28L, Mean Corpuscular Volume 83, Mean Corpuscular Hemoglobin 27, Mean Corpuscular Hemoglobin Concent 32, Red Cell Distribution Width 15.0H, Platelet Count 200, Mean Platelet Volume 10.8H, Sodium Level 138, Potassium Level 4.3, Chloride Level 110H, Carbon Dioxide Level 23, Anion Gap 5, Blood Urea Nitrogen 15, Creatinine 0.78, Estimat Glomerular Filtration Rate > 60, BUN/Creatinine Ratio 19, Glucose Level 102, Calcium Level 9.1 11/16/19 06:15: White Blood Count 6.0, Red Blood Count 3.99L, Hemoglobin 10.5L, Hematocrit 33L, Mean Corpuscular Volume 82, Mean Corpuscular Hemoglobin 26, Mean Corpuscular Hemoglobin Concent 32, Red Cell Distribution Width 14.9H, Platelet Count 214, Mean Platelet Volume 10.7H, Neutrophils (%) (Auto) 66, Lymphocytes (%) (Auto) 14, Monocytes (%) (Auto) 13H, Eosinophils (%) (Auto) 7, Basophils (%) (Auto) 0, Neutrophils # (Auto) 3.9, Lymphocytes # (Auto) 0.9L, Monocytes # (Auto) 0.8, Eosinophils # (Auto) 0.4H, Basophils # (Auto) 0.0 Microbiology 11/11/19 Urine Culture - Final, Complete Morganella morganii 11/11/19 Blood Culture - Final, Complete No growth 11/11/19 Influenza Types A,B Antigen (SOILA) - Final, Complete Laboratory Tests 11/11/19 07:54 11/12/19 06:32 11/13/19 07:15 11/14/19 05:30 11/16/19 06:15 Pending Labs Microbiology Date/Time Source Procedure Growth Status 11/11/19 09:30 Urine Clean Catch Urine Culture - Final Morganella morganii Complete 11/11/19 08:00 Peripheral Rt Ac Blood Culture - Final No growth Complete 11/11/19 07:54 Nasopharynx Influenza Types A,B Antigen (SOILA) - Final Complete 11/11/19 07:54 Peripheral Lt Ac Blood Culture - Final Morganella morganii See Comments Complete Laboratory Tests 11/11/19 07:54: White Blood Count 1.8, Red Blood Count 4.10, Hemoglobin 10.8, Hematocrit 34, Mean Corpuscular Volume 82, Mean Corpuscular Hemoglobin 26, Mean Corpuscular Hemoglobin Concent 32, Red Cell Distribution Width 14.9, Platelet Count 205, Mean Platelet Volume 10.0, Sodium Level 137, Potassium Level 4.2, Chloride Level 103, Carbon Dioxide Level 26, Anion Gap 8, Blood Urea Nitrogen 32, Creatinine 1.32, Estimat Glomerular Filtration Rate > 60, BUN/Creatinine Ratio 24, Glucose Level 116, Lactic Acid Level 1.32, Calcium Level 9.8, Corrected Calcium 10.0, Total Bilirubin 0.6, Aspartate Amino Transf (AST/SGOT) 13, Alanine Aminotransferase (ALT/SGPT) 17, Alkaline Phosphatase 71, Total Protein 6.9, Albumin 3.7 11/11/19 09:30: Urine Color YELLOW, Urine Clarity CLEAR, Urine pH 8.0, Urine Specific [place] 1.020, Urine Protein 1+, Urine Glucose (UA) NEGATIVE, Urine Ketones NEGATIVE, Urine Nitrite POSITIVE, Urine Bilirubin NEGATIVE, Urine Urobilinogen 0.2, Urine Leukocyte Esterase NEGATIVE, Urine RBC (Auto) NEGATIVE, Urine RBC 2-5, Urine WBC 2-5, Urine Squamous Epithelial Cells 0-2, Urine Crystals NONE, Urine Bacteria MODERATE, Urine Casts NONE, Urine Mucus NEGATIVE, Urine Culture Indicated YES 11/11/19 16:46: Glucometer 116 11/12/19 06:32: White Blood Count 16.1, Red Blood Count 3.32, Hemoglobin 8.7, Hematocrit 28, Mean Corpuscular Volume 84, Mean Corpuscular Hemoglobin 26, Mean Corpuscular Hemoglobin Concent 31, Red Cell Distribution Width 15.7, Platelet Count 173, Mean Platelet Volume 11.3, Sodium Level 138, Potassium Level 4.6, Chloride Level 109, Carbon Dioxide Level 23, Anion Gap 6, Blood Urea Nitrogen 32, Creatinine 1.25, Estimat Glomerular Filtration Rate > 60, BUN/Creatinine Ratio 26, Glucose Level 81, Calcium Level 9.0, Corrected Calcium 9.7, Total Bilirubin 0.5, Aspartate Amino Transf (AST/SGOT) 16, Alanine Aminotransferase (ALT/SGPT) 15, Alkaline Phosphatase 52, Total Protein 6.0, Albumin 3.1, Neutrophils (%) (Auto) 86, Lymphocytes (%) (Auto) 4, Monocytes (%) (Auto) 9, Eosinophils (%) (Auto) 0, Basophils (%) (Auto) 0, Neutrophils # (Auto) 13.9, Lymphocytes # (Auto) 0.7, Monocytes # (Auto) 1.5, Eosinophils # (Auto) 0.0, Basophils # (Auto) 0.0, Neutrophils % (Manual) 85, Lymphocytes % (Manual) 4, Monocytes % (Manual) 5, Eosinophils % (Manual) 1, Basophils % (Manual) 0, Band Neutrophils 5, Blood Morphology Comment NORMAL 11/12/19 12:30: Urine Color YELLOW, Urine Clarity CLEAR, Urine pH 6.5, Urine Specific [place] 1.015, Urine Protein NEGATIVE, Urine Glucose (UA) NEGATIVE, Urine Ketones NEGATIVE, Urine Nitrite NEGATIVE, Urine Bilirubin NEGATIVE, Urine Urobilinogen 0.2, Urine Leukocyte Esterase TRACE, Urine RBC (Auto) TRACE-I, Urine RBC 2-5, Urine WBC 2-5, Urine Squamous Epithelial Cells 0-2, Urine Crystals NONE, Urine Bacteria NEGATIVE, Urine Casts NONE, Urine Mucus NEGATIVE, Urine Culture Indica ban NO 11/12/19 15:22: Lactic Acid Level 0.79 11/13/19 07:15: White Blood Count 12.7, Red Blood Count 3.38, Hemoglobin 9.0, Hematocrit 29, Mean Corpuscular Volume 84, Mean Corpuscular Hemoglobin 27, Mean Corpuscular Hemoglobin Concent 32, Red Cell Distribution Width 15.3, Platelet Count 173, Mean Platelet Volume 10.3, Neutrophils (%) (Auto) 86, Lymphocytes (%) (Auto) 5, Monocytes (%) (Auto) 8, Eosinophils (%) (Auto) 1, Basophils (%) (Auto) 0, Neutrophils # (Auto) 10.9, Lymphocytes # (Auto) 0.6, Monocytes # (Auto) 1.0, Eosinophils # (Auto) 0.2, Basophils # (Auto) 0.0, Sodium Level 136, Potassium Level 4.4, Chloride Level 107, Carbon Dioxide Level 22, Anion Gap 7, Blood Urea Nitrogen 22, Creatinine 0.93, Estimat Glomerular Filtration Rate > 60, BUN/Crea tinine Ratio 24, Glucose Level 122, Calcium Level 9.1 11/14/19 05:30: White Blood Count 8.8, Red Blood Count 3.34, Hemoglobin 8.9, Hematocrit 28, Mean Corpuscular Volume 83, Mean Corpuscular Hemoglobin 27, Mean Corpuscular Hemoglobin Concent 32, Red Cell Distribution Width 15.0, Platelet Count 200, Mean Platelet Volume 10.8, Sodium Level 138, Potassium Level 4.3, Chloride Level 110, Carbon Dioxide Level 23, Anion Gap 5, Blood Urea Nitrogen 15, Creatinine 0.78, Estimat Glomerular Filtration Rate > 60, BUN/Creatinine Ratio 19, Glucose Level 102, Calcium Level 9.1 11/16/19 06:15: White Blood Count 6.0, Red Blood Count 3.99, Hemoglobin 10.5, Hematocrit 33, Mean Corpuscular Volume 82, Mean Corpuscular Hemoglobin 26, Mean Corpuscular Hemoglobin Concent 32, Red Cell Distribution Width 14.9, Platelet Count 214, Mean Platelet Volume 10.7, Neutrophils (%) (Auto) 66, Lymphocytes (%) (Auto) 14, Monocytes (%) (Auto) 13, Eosinophils (%) (Auto) 7, Basophils (%) (Auto) 0, Neutrophils # (Auto) 3.9, Lymphocytes # (Auto) 0.9, Monocytes # (Auto) 0.8, Eosinophils # (Auto) 0.4, Basophils # (Auto) 0.0 Discharge Home Medications: Active Scripts Active Flomax (Tamsulosin HCl) 0.4 Mg Cap 0.4 Mg PO DAILY@1800 30 Days Acetaminophen 325 Mg Tablet 650 Mg PO Q6H PRN TAKES 2 (325MG) TABLETS Reported Pyridium (Phenazopyridine HCl) 200 Mg Tablet 200 Mg PO TID PRN Fleet Enema (Na Phos,M-B/Na Phos,Di-Ba) 133 Ml Enema 133 Ml RC DAILY PRN Isosorbide Mononitrate ER (Isosorbide Mononitrate) 60 Mg Tab 90 Mg PO 1000 TAKES 1 & 1/2 (60MG) TABLET Ondansetron Odt (Ondansetron) 8 Mg Tab.rapdis 8 Mg PO TID Movantik (Naloxegol Oxalate) 25 Mg Tablet 25 Mg PO DAILY Furosemide 40 Mg Tablet 40 Mg PO Q48H Clopidogrel (Clopidogrel Bisulfate) 75 Mg Tablet 75 Mg PO DAILY Potassium Chloride 10 Meq Tab.er.prt 10 Meq PO Q48H Androgel (Testosterone) 75 Gm Gel..trade mark attorney 2 Pump TD DAILY Glipizide 5 Mg Tablet 5 Mg PO DAILY Terazosin HCl 1 Mg Capsule 1 Mg PO BID Darcie-Lanta Liquid (Mag Hydrox/Al Hydrox/Simeth) Unknown Strength Oral.susp 30 Ml PO Q4H PRN Bisacodyl 10 Mg Supp.rect 10 Mg RC UD PRN Hydrocodone-Acetamin 7.5-325 (Hydrocodone/Acetaminophen) 1 Each Tablet 1 Tab PO TID PRN Carvedilol 25 Mg Tablet 25 Mg PO BID NOTIFY MD IF SBP<90 OR >200 OR PULSE <50 Hydralazine HCl 100 Mg Tablet 100 Mg PO 0600,1400,2200 HOLD AND NOTIFY MED FOR SBP<110 Pantoprazole Sodium 20 Mg Tablet.dr 20 Mg PO DAILY Alprazolam 0.25 Mg Tablet 0.25 Mg PO HS Gabapentin 600 Mg Tablet 600 Mg PO 0800,2200 Gabapentin 300 Mg Capsule 300 Mg PO 1600 Miralax (Polyethylene Glycol 3350) 17 Gm Powd.pack 17 Gm PO DAILY Trazodone HCl 50 Mg Tablet 50 Mg PO HS Milk of Magnesia (Magnesium Hydroxide) 400 Mg/5 Ml Oral.susp 30 Ml PO DAILY PRN Toujeo Solostar (Insulin Glargine,Hum.rec.anlog) 300 Unit/1 Ml Insuln.pen 6 Unit SQ DAILY Magnesium Citrate 296 Ml Solution 296 Ml PO EVERY 4 DAYS PRN 1 BOTTLE EVERY 4 DAYS, IF NO BOWEL MOVEMENT, NEEDED FOR CONSTIPATION Lipitor (Atorvastatin Calcium) 10 Mg Tablet 10 Mg PO HS [place] 7.5-325 Tablet (Hydrocodone/Acetaminophen) 1 Each Tablet 1 Tab PO HS Baclofen 10 Mg Tablet 10 Mg PO Q8H PRN Colace (Docusate Sodium) 100 Mg Capsule 300 Mg PO HS TAKES 3 (100MG) CAPSULES Finasteride 5 Mg Tablet 5 Mg PO HS Bydureon Pen (Exenatide Microspheres) 2 Mg/0.65 Ml Pen.injctr 2 Mg SQ TH Instructions to patient/family Please see electronic discharge instructions given to patient. Clinical Quality Measures DVT/VTE Risk/Contraindication: Risk Factor Score Per Nursin RFS Level Per Nursing on Admit: 4+=Very High Contraindications-Pharm: Other *list below* TERRI TAVAREZ DO Nov 17, 2019 07:38
--- NOTE | 2019-11-17 07:48 | NUR ---
CM/SS: late entry - 11-16-2019 - Visited with pt and spouse as to the plan of discharge Plan: Pt will return to [facility] today Summary: Both pt and spouse are ok with pt to return to the facility. Spouse has been able to talk to [facility] worker about a transition plan, should she want to take pt home with home community based services. She is still giving that some thought. She verbalizes that she knows it is a process, and right now she feels as if pt is pretty weak. Pt seems less animated on today, but verbalizes his being ok with the established plan. Spouse tearful based on the challenges related to health and family issues that they have encountered in the 5 years that they have been . She is encouraged to take one day at a time. She has this worker's name and contact number should she have additional questions or concerns.
== END 2019-11-16 15:36 | DRG 872 ==
LOC: EDUNIT# 07:41 → ER 07:43 → 4TH 10:54 → OBSVTOIN 11-12 09:00 → 4TH 11-13 12:44
PROVIDERS: ADMIT Family Medicine; ATTEND Family Medicine
DX: A41.89 Other specified sepsis (principal); N39.0 Urinary tract infection, site not specified; R31.9 Hematuria, unspecified; R33.9 Retention of urine, unspecified; J11.2 Influenza due to unidentified influenza virus with gastrointestinal manifestations; R11.0 Nausea; R53.1 Weakness; I95.9 Hypotension, unspecified; E11.42 Type 2 diabetes mellitus with diabetic polyneuropathy; E11.51 Type 2 diabetes mellitus with diabetic peripheral angiopathy without gangrene; I25.10 Atherosclerotic heart disease of native coronary artery without angina pectoris; I25.2 Old myocardial infarction; I10 Essential (primary) hypertension; E78.00 Pure hypercholesterolemia, unspecified; G47.30 Sleep apnea, unspecified; R60.9 Edema, unspecified; K59.09 Other constipation; M54.9 Dorsalgia, unspecified; R13.10 Dysphagia, unspecified; M19.91 Primary osteoarthritis, unspecified site; F41.9 Anxiety disorder, unspecified; N31.2 Flaccid neuropathic bladder, not elsewhere classified; F32.9 Major depressive disorder, single episode, unspecified; N40.1 Benign prostatic hyperplasia with lower urinary tract symptoms; D64.9 Anemia, unspecified; R33.8 Other retention of urine; Z87.891 Personal history of nicotine dependence; Z95.5 Presence of coronary angioplasty implant and graft; Z90.79 Acquired absence of other genital organ(s); Z79.4 Long term (current) use of insulin
CPT/HCPCS: 36415; 71046; 74018; 80048; 80053; 81000; 82962; 83605; 85007; 85025; 85027; 87040; 87077; 87088; 87186; 87804; 93005; 96361; 96374; G0378

== ENCOUNTER 2019-11-27 10:17 | Emergency (ER) | payer MEDICARE, MEDICAID ==
[~2019-11-27] VITALS: Ht 182.8 cm; Wt 65.8 kg
[~2019-11-27 10:17] MED LIST changes: +CLOP75TA28 PO; +NA P133E22 RC; +NALO25TA PO; +ONDA8TAB13 PO; +PHEN-640 PO; +POTA10TA36 PO; +TEST75GE3 TD; +TMSL.4C PO
[2019-11-27] MEDS ORDERED: NS IV 500 ML 500 ML IV ONE (10:53)
--- NOTE | 2019-11-27 11:05 | ED Abdominal Pain ---
General Chief Complaint: Abdominal/GI Problems Stated Complaint: STOMACH SPASMS Nursing Triage Note: PT BROUGHT IN BY WHEELCHAIR TO RM 5 BY FROM [facility] WITH COMPLAINT OF ABD PAIN/ STOMACH SPASMS. PER NH, PT STARTED HAVING ABD PAIN YESTERDAY AND WAS GIVEN AN ENEMA. STATED ENEMA WAS PRODUCTIVE AND PT HAD A BM. Sepsis Screen: No Definite Risk Source of Information: Patient, Caregiver Exam Limitations: No Limitations (MARIA A ROONEY MEDICAL STUDENT) History of Present Illness Date Seen by Provider: Nov 27, 2019 Time Seen by Provider: 10:30 Initial Comments Pt is a 74 yo M who comes to the ED w/ his from [facility] complaining of a few days of cramping abdominal pain. He rates the pain (9/10) and says that it constantly feels like his "insides are being wrung like a wet towel". He also endorses constipation for the past 4 days. He is on an intensive bowel regimen including miralax, colace, prune juice and sometimes enemas. He had an enema yesterday and had two "fluid" stools this morning. He denies fever, nausea/vomiting, or anorexia. His PCP is Dr. Tavarez who recommended that if the patient's pain persisted into this morning he come to the ED to be evaluated. Pt has an extensive medical history which includes type 2 DM, HTN, hyperlipidemia, chronic pain, and neuropathy. 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 About two weeks ago he was discharged from the hospital after being treated for UTI and urosepsis. He says he was having difficulty urinating last week, but received what sounds like a cystoscopy, which was negative, and has no urinary complaints currently. Timing/Duration: 2-3 Days Severity/Quality: Severe, Cramping Location: Generalized Abdomen Radiation: No Radiation Activities at Onset: None Associated Symptoms: Denies Symptoms (MARIA A ROONEY MEDICAL STUDENT) Severity/Quality: Moderate, Cramping Location: Generalized Abdomen Radiation: No Radiation Activities at Onset: None Associated Symptoms: No Fever/Chills, No Nausea/Vomiting, No Weakness (NATALEE LEIGH MD) Allergies and Home Medications Allergies Coded Allergies: Sulfa (Sulfonamide Antibiotics) (Verified Allergy, Severe, HIVES, 07/19/19) temazepam (Verified Allergy, Severe, 07/19/19) MENTAL CONFUSION hydromorphone (Verified Allergy, Unknown, 07/19/19) pravastatin (Verified Adverse Reaction, Severe, RASH, 07/19/19) clopidogrel (Verified Adverse Reaction, Unknown, 07/19/19) Home Medications Acetaminophen 325 Mg Tablet, 650 MG PO Q6H PRN for PAIN-MILD TAKES 2 (325MG) TABLETS Prescribed by: ALYX SNI on 11/16/19 1051 Alprazolam 0.25 Mg Tablet, 0.25 MG PO HS, (Reported) Atorvastatin Calcium 10 Mg Tablet, 10 MG PO HS, (Reported) Baclofen 10 Mg Tablet, 10 MG PO Q8H PRN for MUSCLE SPASMS, (Reported) Bisacodyl 10 Mg Supp.rect, 10 MG RC UD PRN for CONSTIPATION-4TH LINE, (Reported) Carvedilol 25 Mg Tablet, 25 MG PO BID, (Reported) NOTIFY MD IF SBP<90 OR >200 OR PULSE <50 Clopidogrel Bisulfate 75 Mg Tablet, 75 MG PO DAILY, (Reported) Docusate Sodium 100 Mg Capsule, 300 MG PO HS, (Reported) TAKES 3 (100MG) CAPSULES Exenatide Microspheres 2 Mg/0.65 Ml Pen.injctr, 2 MG SQ Th, (Reported) Finasteride 5 Mg Tablet, 5 MG PO HS, (Reported) Furosemide 40 Mg Tablet, 40 MG PO Q48H, (Reported) Gabapentin 300 Mg Capsule, 300 MG PO 1600, (Reported) Gabapentin 600 Mg Tablet, 600 MG PO 0800,2200, (Reported) Glipizide 5 Mg Tablet, 5 MG PO DAILY, (Reported) Hydralazine HCl 100 Mg Tablet, 100 MG PO 0600,1400,2200, (Reported) HOLD AND NOTIFY MED FOR SBP<110 Hydrocodone/Acetaminophen 1 Each Tablet, 1 TAB PO HS, (Reported) Hydrocodone/Acetaminophen 1 Each Tablet, 1 TAB PO TID PRN for PAIN-MODERATE, (Reported) Insulin Glargine,Hum.rec.anlog 300 Unit/1 Ml Insuln.pen, 6 UNIT SQ DAILY, (Reported) Isosorbide Mononitrate 60 Mg Tab, 90 MG PO 1000, (Reported) TAKES 1 & 1/2 (60MG) TABLET Mag Hydrox/Al Hydrox/Simeth Unknown Strength Oral.susp, 30 ML PO Q4H PRN for INDIGESTION, (Reported) Magnesium Citrate 296 Ml Solution, 296 ML PO EVERY 4 DAYS PRN for CONSTIPATION- 9TH LINE, (Reported) 1 BOTTLE EVERY 4 DAYS, IF NO BOWEL MOVEMENT, NEEDED FOR CONSTIPATION Magnesium Hydroxide 400 Mg/5 Ml Oral.susp, 30 ML PO DAILY PRN for CONSTIPATION- 7TH LINE, (Reported) Na Phos,M-B/Na Phos,Di-Ba 133 Ml Enema, 133 ML RC DAILY PRN for CONSTIPATION, (Reported) Naloxegol Oxalate 25 Mg Tablet, 25 MG PO DAILY, (Reported) Ondansetron 8 Mg Tab.rapdis, 8 MG PO TID, (Reported) Pantoprazole Sodium 20 Mg Tablet.dr, 20 MG PO DAILY, (Reported) Phenazopyridine HCl 200 Mg Tablet, 200 MG PO TID PRN for BLADDER SPASMS, (Reported) Polyethylene Glycol 3350 17 Gm Powd.pack, 17 GM PO DAILY, (Reported) Potassium Chloride 10 Meq Tab.er.prt, 10 MEQ PO Q48H, (Reported) Tamsulosin HCl 0.4 Mg Cap, 0.4 MG PO DAILY@1800 Prescribed by: ALYX SIN on 11/16/19 1051 Terazosin HCl 1 Mg Capsule, 1 MG PO BID, (Reported) Testosterone 75 Gm Gel.signal engineer, 2 PUMP TD DAILY, (Reported) Trazodone HCl 50 Mg Tablet, 50 MG PO HS, (Reported) Patient Home Medication List Home Medication List Reviewed: Yes (MARIA A ROONEY MEDICAL STUDENT) Home Medication List Reviewed: Yes (NATALEE LEIGH MD) Review of Systems Review of Systems Constitutional: No chills, No dizziness EENTM: No Symptoms Reported Respiratory: No Symptoms Reported Cardiovascular: No Symptoms Reported Gastrointestinal: Abdominal Pain, Constipated; Denies Diarrhea, Denies Nausea, Denies Poor Fluid Intake, Denies Vomiting Genitourinary: Denies Burning, Denies Frequency, Denies Flank Pain Musculoskeletal: no symptoms reported Skin: no symptoms reported Psychiatric/Neurological: No Symptoms Reported Endocrine: No Symptoms Reported Hematologic/Lymphatic: No Symptoms Reported (MARIA A ROONEY MEDICAL STUDENT) Gastrointestinal: Abdominal Pain, Constipated Genitourinary: No Symptoms Reported Musculoskeletal: no symptoms reported (NATALEE LEIGH MD) All Other Systems Reviewed Negative Unless Noted: Yes (NATALEE LEIGH MD) Past Hspwdxl-Ztnpvt-Qbvuvp Hx Past Med/Social Hx: Reviewed Nursing Past Med/Soc Hx (NATALEE LEIGH MD) Patient Social History Alcohol Use: Denies Use Recreational Drug Use: No (Hx in ) Type Used: Cigars Former Smoker, Quit: Oct 07, 1979 2nd Hand Smoke Exposure: No Recent Foreign Travel: No Contact w/Someone Who Travel: No Recent Infectious Disease Expo: No Recent Hopitalizations: No (MARIA A ROONEY MEDICAL STUDENT) Seasonal Allergies Seasonal Allergies: No (MARIA A ROONEY MEDICAL STUDENT) Past Medical History Surgeries: Yes Amputation, Cardiac, Coronary Stent, Neurological, Orthopedic, Prostatectomy, Transurethral Resection, Vascular Surgery Respiratory: Yes Pneumonia, Sleep Apnea Currently Using CPAP: No Currently Using BIPAP: No Cardiac: Yes Chronic Edema/Swelling, Coronary Artery Disease, Heart Attack, High Cholesterol, Hypertension, Peripheral Vascular Neurological: Yes Neuropathy Reproductive Disorders: No Sexually Transmitted Disease: No HIV/AIDS: No Genitourinary: Yes (PROSTATE SURGERY) Benign Prostatic Hyperpl, Prostate Problems, UTI-Chronic Gastrointestinal: Yes Chronic Constipation Musculoskeletal: Yes Amputee, Degenerate Disk Disease, Arthritis, Chronic Back Pain Endocrine: Yes Diabetes, Insulin dep HEENT: Yes (Cataract- right eye; POOR DENTITION) Cataract, Dysphagia Loss of Vision: Denies Hearing Impairment: Denies Cancer: No Did You Recieve Any Treatments: No Psychosocial: Yes Sleep Difficulties, Anxiety, Depression Integumentary: Yes (GANGRENE AND INFECTION IN LEFT FOOT; CHRONIC WOUNDS TO RIGHT LEG AND FOOT. ) Recent Skin Changes Blood Disorders: No Adverse Reaction/Blood Tranf: No (MARIA A ROONEY MEDICAL STUDENT) Family Medical History Reviewed Nursing Family Hx (NATALEE LEIGH MD) Abdominal aortic aneurysm G8 SISTER Alcoholism G8 BROTHER G8 BROTHER G8 BROTHER Arthritis G8 BROTHER G8 BROTHER G8 BROTHER G8 BROTHER G8 BROTHER G8 SISTER G8 SISTER Cardiovascular disease G8 SISTER Diabetes mellitus G8 BROTHER G8 BROTHER G8 BROTHER G8 SISTER G8 SISTER Drug abuse G8 BROTHER G8 BROTHER FH: COPD (chronic obstructive pulmonary disease) 19 FATHER FH: bladder cancer 19 MOTHER FH: prostate cancer 19 FATHER Headache disorder G8 BROTHER G8 BROTHER G8 BROTHER G8 BROTHER G8 BROTHER G8 BROTHER G8 BROTHER G8 BROTHER G8 SISTER G8 SISTER G8 SISTER G8 SISTER Hypercholesterolemia G8 BROTHER G8 BROTHER G8 BROTHER G8 BROTHER G8 BROTHER G8 SISTER G8 SISTER G8 SISTER G8 SISTER Hypertension 19 FATHER G8 BROTHER G8 BROTHER G8 BROTHER G8 BROTHER G8 BROTHER G8 BROTHER G8 BROTHER G8 BROTHER G8 SISTER G8 SISTER G8 SISTER G8 SISTER Thyroid disease Tuberculosis 19 FATHER Physical Exam Vital Signs Vital Signs - First Documented 11/27/19 10:28 Temp 37.0 Pulse 93 Resp 18 B/P (MAP) 144/85 (104) Pulse Ox 97 O2 Delivery Room Air (NATALEE LEIGH MD) Vital Signs Capillary Refill : Less Than 3 Seconds (MARIA A ROONEY MEDICAL STUDENT) Height/Weight/BMI Height: 5'9.00" Weight: 139lbs. 0.0oz. 63.698644da; 19.00 BMI Method:Stated General Appearance: WD/WN, no apparent distress HEENT: PERRL/EOMI, pharynx normal Neck: non-tender, full range of motion, supple, normal inspection Respiratory: chest non-tender, lungs clear, normal breath sounds, no respiratory distress, no accessory muscle use Cardiovascular: normal peripheral pulses, regular rate, rhythm, no edema, no gallop, no murmur Peripheral Pulses: 2+ Radial Pulses (R), 2+ Radial Pulses (L) Gastrointestinal: normal bowel sounds, non tender, soft, no organomegaly, no pulsatile mass Extremities: non-tender, other (L AKA) Neurologic/Psychiatric: alert, oriented x 3 Skin: normal color, warm/dry Lymphatic: no adenopathy (MARIA A ROONEY MEDICAL STUDENT) General Appearance: WD/WN, no apparent distress Respiratory: lungs clear, normal breath sounds Cardiovascular: regular rate, rhythm, no murmur Gastrointestinal: non tender, soft Neurologic/Psychiatric: alert, oriented x 3 (NATALEE LEIGH MD) Progress/Results/Core Measures Results/Orders Lab Results Laboratory Tests Test 11/27/19 11:15 11/27/19 13:12 Range/Units White Blood Count 4.9 4.3-11.0 10^3/uL Red Blood Count 4.01 L 4.35-5.85 10^6/uL Hemoglobin 10.5 L 13.3-17.7 G/DL Hematocrit 33 L 40-54 % Mean Corpuscular Volume 83 80-99 FL Mean Corpuscular Hemoglobin 26 25-34 PG Mean Corpuscular Hemoglobin Concent 32 32-36 G/DL Red Cell Distribution Width 15.0 H 10.0-14.5 % Platelet Count 359 130-400 10^3/uL Mean Platelet Volume 10.2 7.4-10.4 FL Neutrophils (%) (Auto) 67 42-75 % Lymphocytes (%) (Auto) 15 12-44 % Monocytes (%) (Auto) 14 H 0-12 % Eosinophils (%) (Auto) 4 0-10 % Basophils (%) (Auto) 1 0-10 % Neutrophils # (Auto) 3.3 1.8-7.8 X 10^3 Lymphocytes # (Auto) 0.7 L 1.0-4.0 X 10^3 Monocytes # (Auto) 0.7 0.0-1.0 X 10^3 Eosinophils # (Auto) 0.2 0.0-0.3 10^3/uL Basophils # (Auto) 0.0 0.0-0.1 10^3/uL Sodium Level 139 135-145 MMOL/L Potassium Level 4.0 3.6-5.0 MMOL/L Chloride Level 105 98-107 MMOL/L Carbon Dioxide Level 24 21-32 MMOL/L Anion Gap 10 5-14 MMOL/L Blood Urea Nitrogen 26 H 7-18 MG/DL Creatinine 1.16 0.60-1.30 MG/DL Estimat Glomerular Filtration Rate > 60 BUN/Creatinine Ratio 22 Glucose Level 128 H 70-105 MG/DL Calcium Level 9.5 8.5-10.1 MG/DL Corrected Calcium 9.8 8.5-10.1 MG/DL Total Bilirubin 0.3 0.1-1.0 MG/DL Aspartate Amino Transf (AST/SGOT) 14 5-34 U/L Alanine Aminotransferase (ALT/SGPT) 16 0-55 U/L Alkaline Phosphatase 71 40-136 U/L C-Reactive Protein High Sensitivity 0.44 0.00-0.50 MG/DL Total Protein 6.7 6.4-8.2 GM/DL Albumin 3.6 3.2-4.5 GM/DL Lipase 41 8-78 U/L Urine Color YELLOW Urine Clarity CLEAR Urine pH 6.0 5-9 Urine Specific Bearden 1.010 L 1.016-1.022 Urine Protein NEGATIVE NEGATIVE Urine Glucose (UA) NEGATIVE NEGATIVE Urine Ketones NEGATIVE NEGATIVE Urine Nitrite NEGATIVE NEGATIVE Urine Bilirubin NEGATIVE NEGATIVE Urine Urobilinogen 0.2 < = 1.0 MG/DL Urine Leukocyte Esterase NEGATIVE NEGATIVE Urine RBC (Auto) NEGATIVE NEGATIVE Urine RBC NONE /HPF Urine WBC RARE /HPF Urine Squamous Epithelial Cells 0-2 /HPF Urine Crystals NONE /LPF Urine Bacteria NEGATIVE /HPF Urine Casts NONE /LPF Urine Mucus NEGATIVE /LPF Urine Culture Indicated NO (NATALEE LEIGH MD) My Orders Orders - NATALEE LEIGH MD Cbc With Automated Diff (11/27/19 10:53) Comprehensive Metabolic Panel (11/27/19 10:53) Hs C Reactive Protein (11/27/19 10:53) Ua Culture If Indicated (11/27/19 10:53) Ed Iv/Invasive Line Start (11/27/19 10:53) Ns Iv 500 Ml (Sodium Chloride 0.9%) (11/27/19 10:53) Lipase (11/27/19 10:53) Hyoscyamine Sl Tablet (Levsin Sl Tablet) (11/27/19 11:45) Ct Abdomen/Pelvis W (11/27/19 11:56) Iohexol Injection (Omnipaque 350 Mg/Ml 1 (11/27/19 12:15) Received Contrast (Hold Metformin- Contr (11/27/19 12:15) Sodium Chloride Flush (Catheter Flush Sy (11/27/19 12:15) Ns (Ivpb) (Sodium Chloride 0.9% Ivpb Bag (11/27/19 12:15) (NATALEE LEIGH MD) Medications Given in ED Current Medications Medications Dose Ordered Sig/Rosa Route Start Time Stop Time Status Last Admin Dose Admin Hyoscyamine Sulfate 0.125 mg ONCE ONCE SL 11/27/19 11:45 11/27/19 11:46 DC 11/27/19 13:14 0.125 MG Iohexol 100 ml ONCE ONCE IV 11/27/19 12:15 11/27/19 12:16 DC 11/27/19 12:22 83 ML Sodium Chloride 10 ml NEEDED PRN IV 11/27/19 12:15 11/27/19 12:22 10 ML Sodium Chloride 100 ml ONCE ONCE IV 11/27/19 12:15 11/27/19 12:16 DC 11/27/19 12:22 80 ML Sodium Chloride 500 ml @ 0 mls/hr Q0M ONCE IV 11/27/19 10:53 11/27/19 10:56 DC 11/27/19 11:16 500 MLS/HR (NATALEE LEIGH MD) Vital Signs/I&O 11/27/19 10:28 Temp 37.0 Pulse 93 Resp 18 B/P (MAP) 144/85 (104) Pulse Ox 97 O2 Delivery Room Air (NATALEE LEIGH MD) Blood Pressure Mean: 104 Progress Progress Note : Progress Note I have seen and evaluated the patient and agree with above except as indicated. I have directed the plan of care. Patient is here with abdominal cramping. Has history of constipation and has increased his bowel regimen including fleets enema 2 days ago. Reports that he has loose stools currently. Chronically on narcotics for chronic pain. Has had problems with constipation previously. Evaluation as above. Plan for IV, labs, and will saline 500 mL bolus and Levsin 0.125 mg by mouth given. Monitor patient. 1355: I did discuss at length with the patient and family regarding CT findings including bladder mass which is likely prostate and rediscussed right renal mass. They will follow up with Dr. Chino in [place] regarding this. Also has moderate amount of constipation and will continue his bowel regimen including repeat fleets enema at the senior living. Discharged home with return precautions. Patient and family verbalize un derstanding instructions and agreement with plan. 1404: There is question of left lower lobe pneumonia. We will go ahead and treat that outpatient. (NATALEE LEIGH MD) Diagnostic Imaging Diagonstic Imaging: CT Plain Films/CT/US/NM/MRI: abdomen, pelvis Comments : 1945 PHYSICIAN: NATALEE LEIGH MD ADMIT DATE: 11/27/19/ER Signed Date of Exam:11/27/19 CT ABDOMEN/PELVIS W PROCEDURE: CT abdomen and pelvis with contrast. TECHNIQUE: Multiple contiguous axial images were obtained through the abdomen and pelvis after administration of intravenous contrast. Auto Exposure Controls were utilized during the CT exam to meet ALARA standards for radiation dose reduction. INDICATION: Abdominal pain. FINDINGS: There are peribronchial infiltrates in the left lower lung. The liver appears normal. The gallbladder is contracted. Pancreas appears normal. Spleen is not enlarged. Adrenals appear normal. Kidneys appear normal. The appendix is normal. Small bowel is not dilated. Colon appears normal. Prostate is enlarged and asymmetric with the right lobe being larger. Urinary bladder is distended. There is calcific atherosclerosis of the aorta but no aneurysm. IMPRESSION: Asymmetrically enlarged prostate likely causing bladder outlet obstruction. Left basal infiltrate suspicious for pneumonia. Dictated by: Dictated on workstation # [id number] Dict: 11/27/19 1322 Trans: 11/27/19 1327 [facility] [id number] Interpreted by: NATALEE CANO MD Electronically signed by: NATALEE CANO MD 11/27/19 1327 ADDENDUM REPORT Addendum: Impression: There is 1.5 x 1.5 cm isodense mass in the lateral margin of the midportion right kidney that is unchanged compared to previous exam dating as far back as 07/11/2019 Dictated by: Dictated on workstation # [id number] Interpreted by: NATALEE CANO MD Electronically signed by: NATALEE CANO MD 11/27/19 1343 (NATALEE LEIGH MD) Departure Impression Primary Impression: Abdominal pain, acute, generalized Additional Impressions: Constipation Qualified Codes: K59.00 - Constipation, unspecified Left lower lobe pneumonia Qualified Codes: J18.1 - Lobar pneumonia, unspecified organism Disposition: HOME, SELF-CARE Condition: Improved Departure-Patient Inst. Decision time for Depature: 13:53 (NATALEE LEIGH MD) Referrals: TERRI TAVAREZ DO (PCP/Family) Primary Care Physician Patient Instructions: Acute Abdomen (Belly Pain), Adult (DC), Constipation, Adult (DC), Pneumonia, Adult (DC) Add. Discharge Instructions: All discharge instructions reviewed with patient and/or family. Voiced understanding. You may continue your bowel regimen and you may repeat the fleets enema today. It is very important that he follow up with your urologist related to the small right renal mass and also related to the prostate mass within the bladder. Drink plenty of fluids. Eat a normal diet. Return for worse pain, fever, vomiting, weakness, breathing problems or other concerns as needed. Scripts Cefdinir (Cefdinir) 300 Mg Capsule 300 MG PO BID, #14 CAP 0 Refills Prov: NATALEE LEIGH MD 11/27/19 Copy Copies To 1: TERRI TAVAREZ TYLER MEDICAL STUDENT Nov 27, 2019 11:05 NATALEE LEIGH MD Nov 27, 2019 13:54
[2019-11-27 11:21] LABS: BASOPHILS % (AUTO) 1 % (0-10); EOSINOPHILS # (AUTO) 0.2 10^3/uL (0.0-0.3); EOSINOPHILS % (AUTO) 4 % (0-10); HEMATOCRIT 33 % (40-54); HEMOGLOBIN 10.5 G/DL (13.3-17.7); LYMPHOCYTES # (AUTO) 0.7 X 10^3 (1.0-4.0); LYMPHOCYTES % (AUTO) 15 % (12-44); MEAN CORPUSCULAR HEMOGLOBIN 26 PG (25-34); MEAN CORPUSCULAR HGB CONC 32 G/DL (32-36); MEAN CORPUSCULAR VOLUME 83 FL (80-99); MEAN PLATELET VOLUME 10.2 FL (7.4-10.4); MONOCYTES # (AUTO) 0.7 X 10^3 (0.0-1.0); MONOCYTES % (AUTO) 14 % (0-12); NEUTROPHILS # (AUTO) 3.3 X 10^3 (1.8-7.8); NEUTROPHILS % (AUTO) 67 % (42-75); PLATELET COUNT 359 10^3/uL (130-400); WHITE BLOOD COUNT 4.9 10^3/uL (4.3-11.0)
[2019-11-27 11:40] LABS: ALANINE AMINOTRANSFERASE 16 U/L (0-55); ALBUMIN 3.6 GM/DL (3.2-4.5); ALKALINE PHOSPHATASE 71 U/L (40-136); BILIRUBIN,TOTAL 0.3 MG/DL (0.1-1.0); BUN/CREATININE RATIO 22; CALCIUM 9.5 MG/DL (8.5-10.1); CARBON DIOXIDE 24 MMOL/L (21-32); CHLORIDE 105 MMOL/L (98-107); CREATININE SERUM 1.16 MG/DL (0.60-1.30); GFR ESTIMATED > 60; GLUCOSE 128 MG/DL (70-105); LIPASE 41 U/L (8-78); SODIUM 139 MMOL/L (135-145); TOTAL PROTEIN 6.7 GM/DL (6.4-8.2)
[2019-11-27] MEDS ORDERED: HYOSCYAMINE 0.125 MG (LEVSIN) TAB SL ONE (11:45)
[2019-11-27] MEDS ORDERED: IOHEXOL 350 MG/ML 100 ML (OMNIPAQUE 350) VIAL IV ONE (12:15)
[2019-11-27] MEDS ORDERED: CATHETER FLUSH 10 ML SYR IV PRN (12:15)
[2019-11-27] MEDS ORDERED: HOLD METFORMIN - RECEIVED CONTRAST 20 ML VIAL IV SCH (12:15)
[2019-11-27] MEDS ORDERED: NS 100 ML (IVPB) BAG IV ONE (12:15)
[2019-11-27 13:18] LABS: BILIRUBIN,URINE NEGATIVE (NEGATIVE); CLARITY,URINE CLEAR; COLOR,URINE YELLOW; GLUCOSE, URINE (UA) NEGATIVE (NEGATIVE); KETONES,URINE NEGATIVE (NEGATIVE); LEUKOCYTE ESTERASE ,URINE NEGATIVE (NEGATIVE); NITRITE,URINE NEGATIVE (NEGATIVE); PROTEIN,URINE NEGATIVE (NEGATIVE)
--- NOTE | 2019-11-27 13:27 | Diagnostic Imaging Report ---
PROCEDURE: CT abdomen and pelvis with contrast. TECHNIQUE: Multiple contiguous axial images were obtained through the abdomen and pelvis after administration of intravenous contrast. Auto Exposure Controls were utilized during the CT exam to meet ALARA standards for radiation dose reduction. INDICATION: Abdominal pain. FINDINGS: There are peribronchial infiltrates in the left lower lung. The liver appears normal. The gallbladder is contracted. Pancreas appears normal. Spleen is not enlarged. Adrenals appear normal. Kidneys appear normal. The appendix is normal. Small bowel is not dilated. Colon appears normal. Prostate is enlarged and asymmetric with the right lobe being larger. Urinary bladder is distended. There is calcific atherosclerosis of the aorta but no aneurysm. IMPRESSION: Asymmetrically enlarged prostate likely causing bladder outlet obstruction. Left basal infiltrate suspicious for pneumonia. Dictated by: Dictated on workstation # [id number]
[2019-11-27 13:29] LABS: BACTERIA,URINE NEGATIVE /HPF; SQUAMOUS EPITHELIAL CELL,UR 0-2 /HPF; WBC,URINE RARE /HPF
--- NOTE | 2019-11-27 13:52 | NUR ---
[facility] CALLED AT THIS TIME TO NOTIFY THEM OF PATIENTS PENDING DISMISSAL
[2019-11-27] MEDS ORDERED: CEFD300C3 PO (14:05)
[2019-11-27 14:24] VITALS: BP 135/80
== END 2019-11-27 14:24 | disposition home or self-care (01) ==
LOC: EDUNIT# 10:17 → ER 10:18
DX: K59.00 Constipation, unspecified (principal); J18.9 Pneumonia, unspecified organism; I10 Essential (primary) hypertension; E78.00 Pure hypercholesterolemia, unspecified; I25.10 Atherosclerotic heart disease of native coronary artery without angina pectoris; I25.2 Old myocardial infarction; E11.40 Type 2 diabetes mellitus with diabetic neuropathy, unspecified; F41.9 Anxiety disorder, unspecified; F32.9 Major depressive disorder, single episode, unspecified; Z89.612 Acquired absence of left leg above knee; Z88.2 Allergy status to sulfonamides; Z88.8 Allergy status to other drugs, medicaments and biological substances; Z79.02 Long term (current) use of antithrombotics/antiplatelets; Z79.4 Long term (current) use of insulin; Z87.891 Personal history of nicotine dependence; Z95.5 Presence of coronary angioplasty implant and graft; Z82.49 Family history of ischemic heart disease and other diseases of the circulatory system; Z80.42 Family history of malignant neoplasm of prostate; Z80.52 Family history of malignant neoplasm of bladder
CPT/HCPCS: 36415; 74177; 80053; 81000; 83690; 85025; 86141

== ENCOUNTER → 2019-12-03 | Outpatient (CLI) | payer MEDICARE, MEDICAID ==
[~2019-12-03] MED LIST changes: +ACHYD1T PO; +CEFD300C3 PO; +HYDR-34 PO; -HYDR-3816 PO; -HYDR-3820 PO; -MAGN296S50 PO; +MAGN296S71 PO
--- NOTE | 2019-12-03 14:33 | Diagnostic Imaging Report ---
INDICATION: Lower respiratory infection. Portable chest at 01:58 p.m. FINDINGS: There is some discoid atelectasis in both lung bases. Heart size and pulmonary vascularity are normal. There are no effusions or pneumothoraces. IMPRESSION: Bibasilar discoid atelectasis. Dictated by: Dictated on workstation # [id number]
== END ==
LOC: RAD 13:45
PROVIDERS: ATTEND Family Medicine
DX: J98.11 Atelectasis (principal); J22 Unspecified acute lower respiratory infection
CPT/HCPCS: 71045

== ENCOUNTER 2020-06-16 08:33 | Inpatient (IN) | payer MEDICARE, MEDICAID ==
[~2020-06-16] VITALS: Ht 155.7 cm; Wt 63.0 kg
[2020-06-16] VITALS (14 sets, daily range): BP systolic 91–184; BP diastolic 47–79
[~2020-06-16 08:33] MED LIST changes: +ASPI-1238 PO; -ASPI-983 PO; +ASPI-999 PO; +LACT10SO27 PO; +MENT118G TP
[2020-06-16] MEDS ORDERED: NS IV 1000 ML 1,000 ML IV SCH (08:48)
[2020-06-16 08:53] LABS: ABG BASE EXCESS 3.2 MMOL/L (-2.5-2.5); ABG OXYGEN SATURATION 87 % (94-100); ABG PCO2 50 MMHG (35-45); ABG PH 7.37 (7.37-7.43); ABG PO2 54 MMHG (79-93); ABG TCO2 29.9 MMOL/L (21.0-31.0)
[2020-06-16 08:54] LABS: ALLENS TEST POSITIVE; PATIENT TEMP 96.7; VENTILATOR NO
--- NOTE | 2020-06-16 08:56 | ED General ---
General Chief Complaint: Altered Mental Status Stated Complaint: UNRESPONSIVE Source of Information: Patient, EMS Exam Limitations: Other (clinical condition) History of Present Illness Date Seen by Provider: Jun 16, 2020 Time Seen by Provider: 08:31 Initial Comments The patient arrives by EMS from home with chief complaint of altered mental status today and loose, coarse breath sounds. EMS reports blood sugar 167 and earlier last week he had [address] Lewis was discharged to [facility] [place]. Saturday, 4 days ago he was discharged back to home. His notes that he was altered not answering questions but breathing. EMS noted him to have incontinence of urine and that he would open his eyes to verbal stimuli but only give incomprehensible sounds. Patient was discharged 4 days ago for non-STEMI, CAD, CHF with an EF of 45-50% and diastolic dysfunction grade 1 on echocardiogram from 6 days ago, hypertension, type 2 diabetes, hyperlipidemia. He has a history of an rvosq-ckk-piuh amputation, pressure ulcers to his right foot and his coccyx. He is a patient of Dr. Tavarez'soila. [facility] [place] indicates she had a negative COVID-19 was log. The indicates that he is a DO NOT RESUSCITATE and wants to allow natural . She agrees with admitting him. She says she's been taking his medications routinely until today when he was out of it. Allergies and Home Medications Allergies Coded Allergies: Sulfa (Sulfonamide Antibiotics) (Verified Allergy, Severe, HIVES, 07/19/19) temazepam (Verified Allergy, Severe, 07/19/19) MENTAL CONFUSION hydromorphone (Verified Allergy, Unknown, 07/19/19) zolpidem (Verified Allergy, Unknown, 06/09/20) pravastatin (Verified Adverse Reaction, Severe, RASH, 07/19/19) Home Medications Acetaminophen 325 Mg Capsule, 650 MG PO Q6H PRN for PAIN-MILD (1-4), (Reported) Amlodipine Besylate 5 Mg Tablet, 5 MG PO DAILY Prescribed by: HAWA SNOW on 06/12/20 1229 Aspirin 81 Mg Tab.chew, 81 MG PO DAILY@0900 Prescribed by: HAWA SNOW on 06/12/20 1229 Atorvastatin Calcium 10 Mg Tablet, 10 MG PO HS, (Reported) Baclofen 10 Mg Tablet, 10 MG PO Q8H PRN for MUSCLE SPASMS, (Reported) Bisacodyl 10 Mg Supp.rect, 10 MG RC DAILY PRN for CONSTIPATION-4TH LINE, (R eported) Carvedilol 25 Mg Tablet, 25 MG PO BID, (Reported) NOTIFY MD IF SBP<90 OR >200 OR PULSE <50 Clopidogrel Bisulfate 75 Mg Tablet, 75 MG PO DAILY, (Reported) Docusate Sodium 100 Mg Capsule, 300 MG PO HS, (Reported) TAKES 3 (100MG) CAPSULES Finasteride 5 Mg Tablet, 5 MG PO HS, (Reported) Furosemide 40 Mg Tablet, 40 MG PO DAILY, (Reported) Gabapentin 600 Mg Tablet, 600 MG PO 0800,2200, (Reported) Gabapentin 300 Mg Capsule, 300 MG PO 1600, (Reported) Glipizide 5 Mg Tablet, 5 MG PO DAILY, (Reported) Hydralazine HCl 100 Mg Tablet, 100 MG PO QID, (Reported) HOLD AND NOTIFY MED FOR SBP<110 Hydrocodone Bit/Acetaminophen 1 Each Tablet, 1 TAB PO TID PRN for PAIN-MODERATE, (Reported) Hydrocodone/Acetaminophen 1 Each Tablet, 1 TAB PO HS, (Reported) Insulin Glargine,Hum.rec.anlog 300 Unit/1 Ml Insuln.pen, 6 UNIT SQ DAILY, (Reported) Isosorbide Mononitrate 60 Mg Tab, 90 MG PO DAILY, (Reported) TAKES 1 & 1/2 (60MG) TABLET Lactulose 10 Gm/15 Ml Solution, 15 ML PO DAILY, (Reported) Mag Hydrox/Al Hydrox/Simeth Unknown Strength Oral.susp, 30 ML PO Q4H PRN for INDIGESTION, (Reported) Magnesium Citrate 296 Ml Solution, 296 ML PO EVERY 4 DAYS PRN for CONSTIPATION- 9TH LINE, (Reported) 1 BOTTLE EVERY 4 DAYS, IF NO BOWEL MOVEMENT, NEEDED FOR CONSTIPATION Magnesium Hydroxide 400 Mg/5 Ml Oral.susp, 30 ML PO DAILY PRN for CONSTIPATION- 7TH LINE, (Reported) Menthol 118 Ml Gel..ml., 1 APPLIC TP QID PRN for PAIN-BREAKTHROUGH, (Reported) Na Phos,M-B/Na Phos,Di-Ba 133 Ml Enema, 133 ML RC DAILY PRN for CONSTIPATION, (Reported) Ondansetron 8 Mg Tab.rapdis, 8 MG PO TID, (Reported) Pantoprazole Sodium 20 Mg Tablet.dr, 20 MG PO DAILY, (Reported) Phenazopyridine HCl 200 Mg Tablet, 200 MG PO TID PRN for BLADDER SPASMS, (Reported) Polyethylene Glycol 3350 17 Gm Powd.pack, 17 GM PO DAILY, (Reported) Potassium Chloride 10 Meq Tab.er.prt, 10 MEQ PO DAILY, (Reported) Tamsulosin HCl 0.4 Mg Cap, 0.4 MG PO DAILY, (Reported) Terazosin HCl 1 Mg Capsule, 1 MG PO BID, (Reported) Testosterone 75 Gm 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.md.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, 2 PUMP TD DAILY, (Reported) Trazodone HCl 50 Mg Tablet, 50 MG PO HS, (Reported) Patient Home Medication List Home Medication List Reviewed: Yes Review of Systems Review of Systems Constitutional: see HPI (per EMS and family report); No chills, No diaphoresis, No fever; malaise, weakness EENTM: No ear discharge, No blurred vision Respiratory: cough, phlegm, short of breath Cardiovascular: No edema; Hx of Intervention, vascular heart diseas Gastrointestinal: No abdominal pain, No vomiting Genitourinary: No discharge, No dysuria Musculoskeletal: No back pain, No joint pain Skin: dryness; No pruritus, No rash; other (sacral decubitus chronic and right foot decubitus) Psychiatric/Neurological: Denies Anxiety, Denies Depressed All Other Systems Reviewed Negative Unless Noted: Yes Past Eulijif-Dvyjyj-Gmnubp Hx Patient Social History Recreational Drug Use: No Smoking Status: Former Smoker Type Used: Cigars Former Smoker, Quit: Oct 07, 1979 2nd Hand Smoke Exposure: No Recent Hopitalizations: No Seasonal Allergies Seasonal Allergies: No Past Medical History Surgeries: Yes Amputation, Cardiac, Coronary Stent, Neurological, Orthopedic, Prostatectomy, Transurethral Resection, Vascular Surgery Respiratory: Yes Pneumonia, Sleep Apnea Currently Using CPAP: No Currently Using BIPAP: No Cardiac: Yes Chronic Edema/Swelling, Coronary Artery Disease, Heart Attack, High Cholesterol, Hypertension, Peripheral Vascular Neurological: Yes Neuropathy Reproductive Disorders: No Sexually Transmitted Disease: No HIV/AIDS: No Genitourinary: Yes (PROSTATE SURGERY) Benign Prostatic Hyperpl, Prostate Problems, UTI-Chronic Gastrointestinal: Yes Chronic Constipation Musculoskeletal: Yes Amputee, Degenerate Disk Disease, Arthritis, Chronic Back Pain Endocrine: Yes Diabetes, Insulin dep HEENT: Yes (Cataract- right eye; POOR DENTITION) Cataract, Dysphagia Loss of Vision: Denies Hearing Impairment: Denies Cancer: No Did You Recieve Any Treatments: No Psychosocial: Yes Sleep Difficulties, Anxiety, Depression Integumentary: Yes (GANGRENE AND INFECTION IN LEFT FOOT; CHRONIC WOUNDS TO RIGHT LEG AND FOOT. ) Recent Skin Changes Blood Disorders: No Adverse Reaction/Blood Tranf: No Family Medical History Abdominal aortic aneurysm G8 SISTER Alcoholism G8 BROTHER G8 BROTHER G8 BROTHER Arthritis G8 BROTHER G8 BROTHER G8 BROTHER G8 BROTHER G8 BROTHER G8 SISTER G8 SISTER Cardiovascular disease G8 SISTER Diabetes mellitus G8 BROTHER G8 BROTHER G8 BROTHER G8 SISTER G8 SISTER Drug abuse G8 BROTHER G8 BROTHER FH: COPD (chronic obstructive pulmonary disease) 19 FATHER FH: bladder cancer 19 MOTHER FH: prostate cancer 19 FATHER Headache disorder G8 BROTHER G8 BROTHER G8 BROTHER G8 BROTHER G8 BROTHER G8 BROTHER G8 BROTHER G8 BROTHER G8 SISTER G8 SISTER G8 SISTER G8 SISTER Hypercholesterolemia G8 BROTHER G8 BROTHER G8 BROTHER G8 BROTHER G8 BROTHER G8 SISTER G8 SISTER G8 SISTER G8 SISTER Hypertension 19 FATHER G8 BROTHER G8 BROTHER G8 BROTHER G8 BROTHER G8 BROTHER G8 BROTHER G8 BROTHER G8 BROTHER G8 SISTER G8 SISTER G8 SISTER G8 SISTER Thyroid disease Tuberculosis 19 FATHER Physical Exam Vital Signs Vital Signs - First Documented 06/16/20 08:45 Temp 36.3 Pulse 99 Resp 28 B/P (MAP) 102/69 (80) Pulse Ox 94 O2 Delivery Room Air Capillary Refill : Height, Weight, BMI Height: 5'9.00" Weight: 139lbs. 0.0oz. 63.046199lv; 18.50 BMI Method:Stated General Appearance: Chronically ill, Cachetic, Moderate Distress Eyes: Bilateral Eye Normal Inspection, Bilateral Eye PERRL, Bilateral Eye EOMI HEENT: PERRL/EOMI, TMs Normal, Pharynx Normal; No Moist Mucous Membranes Neck: Full Range of Motion, Normal Inspection Respiratory: No Accessory Muscle Use, Respiratory Distress (oxygen saturation 93% on room air with respiratory rate 20-24 breaths per minute and audible rhonchi), Rhonci (bilateral) Cardiovascular: Regular Rate, Rhythm, Normal Peripheral Pulses, Tachycardia Gastrointestinal: Normal Bowel Sounds, Non Tender, Soft Neurologic/Psychiatric: Alert, Other (incomprehensible sounds, GCS 10) Skin: Normal Color, Warm/Dry Focused Exam Sepsis Stage: Sepsis Possible Source: Genitouriary Lactate Level 06/16/20 09:14: Lactic Acid Level 0.80 Time of Focused Exam: 10:57 Respiratory: No Accessory Muscle Use, Respiratory Distress (mild on 2lpm NC), Rhonci Cardiovascular: Regular Rate, Rhythm, No Edema, Tachycardia (115) Capillary Refill: Less Than 3 Seconds Peripheral Pulses: 2+ Radial Pulses (R), 2+ Radial Pulses (L) Skin: normal color, warm/dry Lactic Acid Level Laboratory Tests Test 06/16/20 09:14 Lactic Acid Level 0.80 MMOL/L (0.50-2.00) Within 3hrs of presentation: Admin fluids, Admin ABX, Blood cultures prior to ABX's, Focus exam, Lactate level Procedures/Interventions Lumen: triple Central Line Procedure: betadine prep (chlorhexidine), sterile drapes applied, sterile dressing applied Position: internal jugular (R) Anesthesia: Lidocaine Volume Anesthetic (ccs): 3 Complications: none Post Position: sutured, good blood return, position confirmed w/ CXR Risks, benefits and alternatives were discussed with the patient and he was emergently consented to the procedure. He was positioned in the usual format and using the usual sterile garment and drapes the patient was dressed out. The skin was thoroughly cleaned with the supplied chlorhexidine prep. After the prep and dried a sterile drape was placed. The 16 cm 7 German triple-lumen catheter was flushed with sterile saline. Ultrasound demonstrated a flaccid superior vena cava that collapsed on inspiration. We used ultrasound guidance to pass the introducer needle into the right internal jugular without difficulty. A guidewire was placed easily without difficulty. No ectopy was seen on the monitor. The supplied 11 blade scalpel was used to make a 2 mm incision at the inferior portion of the introducer needle. The introducer needle was replaced with the dilator. The dilator was taken out and the patient had the central lumen of the triple lumen catheter threaded over the guidewire and placed at 14 cm. The guidewire was removed and the triple-lumen catheter was stitched in place using the supplied braided stitch at 2 different points. The catheter withdrew blood and flushed easily. A sterile dressing was placed over the catheter. The patient tolerated the procedure well. A chest x-ray was obtained that demonstrated no pneumothorax and a new interval central catheter over the shadow of the right internal jugular down the superior vena cava and terminating just proximal to the right atria. Progress/Results/Core Measures Suspected Sepsis SIRS Temperature: Pulse: Respiratory Rate: Laboratory Tests 06/16/20 09:14: White Blood Count 7.4 Blood Pressure / Mean: 06/16/20 09:14: Lactic Acid Level 0.80 Laboratory Tests 06/16/20 09:14: Creatinine 1.17, INR Comment 1.0, Platelet Count 238, Total Bilirubin 0.3 Results/Orders Lab Results Laboratory Tests Test 06/16/20 08:43 06/16/20 09:14 06/16/20 10:02 Range/Units Blood Gas Puncture Site LEFT RADIAL Blood Gas Patient Temperature 96.7 Arterial Blood pH 7.37 7.37-7.43 Arterial Blood Partial Pressure CO2 50 H 35-45 MMHG Arterial Blood Partial Pressure O2 54 L 79-93 MMHG Arterial Blood HCO3 28 H 23-27 MMOL/L Arterial Blood Total CO2 29.9 21.0-31.0 MMOL/L Arterial Blood Oxygen Saturation 87 L 94-100 % Arterial Blood Base Excess 3.2 H -2.5-2.5 MMOL/L Brent Test POSITIVE Blood Gas Ventilator Setting NO Blood Gas Inspired Oxygen N/A White Blood Count 7.4 4.3-11.0 10^3/uL Red Blood Count 4.16 L 4.35-5.85 10^6/uL Hemoglobin 11.5 L 13.3-17.7 G/DL Hematocrit 36 L 40-54 % Mean Corpuscular Volume 87 80-99 FL Mean Corpuscular Hemoglobin 28 25-34 PG Mean Corpuscular Hemoglobin Concent 32 32-36 G/DL Red Cell Distribution Width 14.2 10.0-14.5 % Platelet Count 238 130-400 10^3/uL Mean Platelet Volume 10.8 H 7.4-10.4 FL Neutrophils (%) (Auto) 82 H 42-75 % Lymphocytes (%) (Auto) 7 L 12-44 % Monocytes (%) (Auto) 9 0-12 % Eosinophils (%) (Auto) 2 0-10 % Basophils (%) (Auto) 0 0-10 % Neutrophils # (Auto) 6.1 1.8-7.8 X 10^3 Lymphocytes # (Auto) 0.5 L 1.0-4.0 X 10^3 Monocytes # (Auto) 0.6 0.0-1.0 X 10^3 Eosinophils # (Auto) 0.1 0.0-0.3 10^3/uL Basophils # (Auto) 0.0 0.0-0.1 10^3/uL Neutrophils % (Manual) 86 % Lymphocytes % (Manual) 7 % Monocytes % (Manual) 3 % Eosinophils % (Manual) 1 % Basophils % (Manual) 0 % Band Neutrophils 3 % Poikilocytosis SLIGHT Prothrombin Time 13.7 12.2-14.7 SEC INR Comment 1.0 0.8-1.4 Activated Partial Thromboplast Time 28 24-35 SEC D-Dimer 3.36 H 0.00-0.49 UG/ML Urine Color YELLOW Urine Clarity CLEAR Urine pH 6.0 5-9 Urine Specific [place] 1.010 L 1.016-1.022 Urine Protein TRACE H NEGATIVE Urine Glucose (UA) TRACE H NEGATIVE Urine Ketones NEGATIVE NEGATIVE Urine Nitrite POSITIVE H NEGATIVE Urine Bilirubin NEGATIVE NEGATIVE Urine Urobilinogen 0.2 < = 1.0 MG/DL Urine Leukocyte Esterase 2+ H NEGATIVE Urine RBC (Auto) TRACE-I NEGATIVE Urine RBC RARE /HPF Urine WBC 25-50 H /HPF Urine Squamous Epithelial Cells RARE /HPF Urine Crystals NONE /LPF Urine Bacteria MODERATE H /HPF Urine Casts NONE /LPF Urine Mucus NEGATIVE /LPF Urine Culture Indicated YES Sodium Level 142 135-145 MMOL/L Potassium Level 4.0 3.6-5.0 MMOL/L Chloride Level 106 98-107 MMOL/L Carbon Dioxide Level 27 21-32 MMOL/L Anion Gap 9 5-14 MMOL/L Blood Urea Nitrogen 23 H 7-18 MG/DL Creatinine 1.17 0.60-1.30 MG/DL Estimat Glomerular Filtration Rate > 60 BUN/Creatinine Ratio 20 Glucose Level 177 H 70-105 MG/DL Lactic Acid Level 0.80 0.50-2.00 MMOL/L Calcium Level 9.4 8.5-10.1 MG/DL Corrected Calcium 9.8 8.5-10.1 MG/DL Total Bilirubin 0.3 0.1-1.0 MG/DL Aspartate Amino Transf (AST/SGOT) 11 5-34 U/L Alanine Aminotransferase (ALT/SGPT) 9 0-55 U/L Alkaline Phosphatase 83 40-136 U/L Troponin I 2.448 *H <0.028 NG/ML C-Reactive Protein High Sensitivity 1.41 H 0.00-0.50 MG/DL B-Type Natriuretic Peptide 33.3 <100.0 PG/ML Total Protein 7.0 6.4-8.2 GM/DL Albumin 3.5 3.2-4.5 GM/DL Procalcitonin 0.45 H <0.10 NG/ML Coronavirus 2019 (ANDREY) Negative Negative Micro Results Microbiology 06/16/20 Influenza Types A,B Antigen (SOILA) - Final, Complete My Orders Orders - MART GALLARDO Arterial Blood Gas (06/16/20 08:47) Continuous Ekg Monitoring (06/16/20 08:48) Ekg Tracing (06/16/20 08:48) Cbc With Automated Diff (06/16/20 08:48) Comprehensive Metabolic Panel (06/16/20 08:48) Hs C Reactive Protein (06/16/20 08:48) Procalcitonin (Pct) (06/16/20 08:48) Troponin I (06/16/20 08:48) BNP (06/16/20 08:48) Chest 1 View, Ap/Pa Only (06/16/20 08:48) Accucheck Stat ONCE (06/16/20 08:48) Catheter(Urinary) Insert & Ass 03,15 (06/16/20 08:48) Ua Culture If Indicated (06/16/20 08:48) Ed Iv/Invasive Line Start (06/16/20 08:48) Ns Iv 1000 Ml (Sodium Chloride 0.9%) (06/16/20 08:48) Blood Culture (06/16/20 09:29) Sputum Culture (06/16/20 09:29) Protime With Inr (06/16/20 09:29) Partial Thromboplastin Time (06/16/20 09:29) Ed Iv/Invasive Line Start (06/16/20 09:29) Ed Iv/Invasive Line Start (06/16/20 09:29) Vital Signs Adult Sepsis Patie Q15M (06/16/20 09:29) O2 (06/16/20 09:29) Remove Rings In Anticipation O (06/16/20:) Lactic Acid Analyzer (06/16/20:) Influenza A And B Antigens (06/16/20 09:29) Cefepime Injection (Maxipime Injection) (06/16/20 09:30) Vancomycin Injection (Vancomycin Injecti (06/16/20 09:30) Ed Iv/Invasive Line Start (06/16/20:29) Ns Iv 500 Ml (Sodium Chloride 0.9%) (06/16/20 09:29) Fibrin Degradation Products (06/16/20:32) Covid 19 Inhouse Test (06/16/20 09:32) Manual Differential (06/16/20 09:14) Urine Culture (06/16/20 09:14) Coronavirus Sars-Cov-2 So 2018 (06/16/20 10:31) Clopidogrel Tablet (Plavix Tablet) (06/16/20 11:00) Aspirin Chewable Tablet (Baby Aspirin Ch (06/16/20 11:00) Enoxaparin Injection (Lovenox Injection) (06/16/20 11:00) Vital Signs/I&O 06/16/20 08:45 Temp 36.3 Pulse 99 Resp 28 B/P (MAP) 102/69 (80) Pulse Ox 94 O2 Delivery Room Air Capillary Refill : Progress Note #1: Time: 09:19 Progress Note No peripheral access was available so a central line was placed. The superior Vena cava is flaccid and he appears clinically dry so we'll initiate some IV fluids. Suspect a pneumonia related to recent procedure. We will obtain a troponin noting that he had a catheterization of his heart within the last week. ABG obtained. Borderline CO2 retention and hypoxia. We initiated 2 L by nasal cannula which brought his oxygen sats up from 93-94% to 96%. GCS is 10. Fully catheter was initiated for accurate I/Os. Plan to get blood cultures. He has an elevated respiratory rate and tachycardia but no fever. Septic workup. After discussing goals of care with the she agrees with allowing natural . DO NOT RESUSCITATE. Progress Note #2: Time: 10:58 Progress Note The patient is talking in halting sentences. He states that he is hallucinating. He is answering questions although uncertain if his answers are consistent. This would be an improvement in mentation. ECG Initial ECG Impression Date: Jun 16, 2020 Initial ECG Impression Time: 08:51 Initial ECG Rate: 94 Initial ECG Rhythm: Normal Sinus Initial ECG Intervals: Normal Initial ECG Impression: Normal, Nonspecific Changes (lvh) Comment Normal sinus rhythm without clinically relevant ST elevation or depression. Minor respiratory artifact. Diagnostic Imaging Diagonstic Imaging: Xray Plain Films/CT/US/NM/MRI: chest (1v) Comments NAME: ARLIN CANCINO [facility] REC#: [id number] PT STATUS: REG ER : 1945 PHYSICIAN: MART GALLARDO MD ADMIT DATE: 06/16/20/ER Draft Date of Exam:06/16/20 CHEST 1 VIEW, AP/PA ONLY INDICATION: Unresponsive. Time of exam: 9:46 AM Correlation is made with prior chest from 06/09/2020. Right IJ line has tip overlying the SVC. There are infiltrates/atelectasis bilateral perihilar and bibasilar regions. These have significantly increased since the examination one week earlier. No effusion is identified. There is no pneumothorax. IMPRESSION: Increasing bilateral perihilar and bibasilar infiltrates since examination one week earlier. Dictated on workstation # [id number] Dict: 06/16/2047 Trans: 06/16/20 0952 CARMINA [id number] Interpreted by: BOB IYER MD Electronically signed by: Reviewed: Reviewed by Me Consults Consults : Consulting Physician: A Departure Communication (Admissions) Time/Spoke to Admitting Phy: 10:30 Discussed the case with Dr. Snow she agrees to admit the patient to cardiac stepdown with cardiac consultation. DO NOT RESUSCITATE status Time/Spoke to Consulting Phy: 10:35 Discussed the case with Dr. Grant and he agrees with aspirin, Plavix and Lovenox. He is suspicious that the elevated troponin is due to sepsis. He will see the patient today. Impression Primary Impression: Sepsis Qualified Codes: A41.9 - Sepsis, unspecified organism; R65.20 - Severe sepsi s without septic shock; J96.01 - Acute respiratory failure with hypoxia Additional Impressions: Hospital-acquired pneumonia UTI (urinary tract infection) Qualified Codes: N30.00 - Acute cystitis without hematuria Elevated troponin I level Acute respiratory failure with hypoxia and hypercarbia Delirium due to another medical condition, acute, hypoactive Disposition: ADMITTED INPATIENT Condition: Stable Admissions Decision to Admit Reason: Admit from ER (General) Decision to Admit/Date: Jun 16, 2020 Time/Decision to Admit Time: 10:00 Departure-Patient Inst. Referrals: TERRI TAVAREZ DO (PCP/Family) Primary Care Physician MART GALLARDO Jun 16, 2020 08:56
[2020-06-16] MEDS ORDERED: NS IV 500 ML 500 ML IV ONE (09:29)
[2020-06-16] MEDS ORDERED: VANCOMYCIN INJECTION 1,250 MG in NS (IVPB) 250 ML IV ONE (09:30)
[2020-06-16] MEDS ORDERED: CEFEPIME INJECTION 1,000 MG in WATER (STERILE) FOR INJECTION 10 ML IV ONE (09:30)
--- NOTE | 2020-06-16 09:30 | NUR ---
Patient incont of urine and bowel. Noted skin breakdown on coccyx and right heal, left Aka
[2020-06-16 09:38] LABS: BILIRUBIN,URINE NEGATIVE (NEGATIVE); CLARITY,URINE CLEAR; COLOR,URINE YELLOW; GLUCOSE, URINE (UA) TRACE (NEGATIVE); KETONES,URINE NEGATIVE (NEGATIVE); LEUKOCYTE ESTERASE ,URINE 2+ (NEGATIVE); NITRITE,URINE POSITIVE (NEGATIVE); PROTEIN,URINE TRACE (NEGATIVE)
[2020-06-16 09:39] LABS: BASOPHILS % (AUTO) 0 % (0-10); EOSINOPHILS # (AUTO) 0.1 10^3/uL (0.0-0.3); EOSINOPHILS % (AUTO) 2 % (0-10); HEMATOCRIT 36 % (40-54); HEMOGLOBIN 11.5 G/DL (13.3-17.7); LYMPHOCYTES # (AUTO) 0.5 X 10^3 (1.0-4.0); LYMPHOCYTES % (AUTO) 7 % (12-44); MEAN CORPUSCULAR HEMOGLOBIN 28 PG (25-34); MEAN CORPUSCULAR HGB CONC 32 G/DL (32-36); MEAN CORPUSCULAR VOLUME 87 FL (80-99); MEAN PLATELET VOLUME 10.8 FL (7.4-10.4); MONOCYTES # (AUTO) 0.6 X 10^3 (0.0-1.0); MONOCYTES % (AUTO) 9 % (0-12); NEUTROPHILS # (AUTO) 6.1 X 10^3 (1.8-7.8); NEUTROPHILS % (AUTO) 82 % (42-75); PLATELET COUNT 238 10^3/uL (130-400); WHITE BLOOD COUNT 7.4 10^3/uL (4.3-11.0)
[2020-06-16 09:50] LABS: BACTERIA,URINE MODERATE /HPF; RBC,URINE RARE /HPF; SQUAMOUS EPITHELIAL CELL,UR RARE /HPF; WBC,URINE 25-50 /HPF
[2020-06-16 09:53] LABS: FIBRIN DEGRADATION PRODUCTS 3.36 UG/ML (0.00-0.49); PROTHROMBIN TIME PATIENT 13.7 SEC (12.2-14.7)
--- NOTE | 2020-06-16 09:53 | Diagnostic Imaging Report ---
INDICATION: Unresponsive. Time of exam: 9:46 AM Correlation is made with prior chest from 06/09/2020. Right IJ line has tip overlying the SVC. There are infiltrates/atelectasis bilateral perihilar and bibasilar regions. These have significantly increased since the examination one week earlier. No effusion is identified. There is no pneumothorax. IMPRESSION: Increasing bilateral perihilar and bibasilar infiltrates since examination one week earlier. Dictated by: Dictated on workstation # [id number]
[2020-06-16 10:00] LABS: ALANINE AMINOTRANSFERASE 9 U/L (0-55); ALBUMIN 3.5 GM/DL (3.2-4.5); ALKALINE PHOSPHATASE 83 U/L (40-136); BILIRUBIN,TOTAL 0.3 MG/DL (0.1-1.0); BUN/CREATININE RATIO 20; CALCIUM 9.4 MG/DL (8.5-10.1); CARBON DIOXIDE 27 MMOL/L (21-32); CHLORIDE 106 MMOL/L (98-107); CREATININE SERUM 1.17 MG/DL (0.60-1.30); GFR ESTIMATED > 60; GLUCOSE 177 MG/DL (70-105); SODIUM 142 MMOL/L (135-145)
[2020-06-16 10:09] LABS: BAND NEUTROPHILS 3 %; BASOPHILS % (MANUAL) 0 %; EOSINOPHILS % (MANUAL) 1 %; LYMPHOCYTES % (MANUAL) 7 %; MONOCYTES % (MANUAL) 3 %; NEUTROPHILS % (MANUAL) 86 %; POIKILOCYTOSIS SLIGHT
[2020-06-16] MEDS ORDERED: ENOXAPARIN 60 MG/0.6 ML (LOVENOX) SYR SC ONE (11:00)
[2020-06-16] MEDS ORDERED: ASPIRIN 81 MG CHEW (CHILDREN'S ASA) PO ONE (11:00)
[2020-06-16] MEDS ORDERED: CLOPIDOGREL 300 MG (PLAVIX) TABLET PO ONE (11:00)
--- NOTE | 2020-06-16 11:39 | NUR ---
RECEIVED REPORT FROM SHASHI GARZA.
[2020-06-16] MEDS ORDERED: NS IV 1000 ML 1,000 ML ONE (11:58)
[2020-06-16] MEDS: NS IV 1000 ML 1,000 ML IV SCH ×3 (12:30→20:51)
[2020-06-16] MEDS ORDERED: ACETAMINOPHEN 650 MG SUPP (TYLENOL) PR PRN (12:30)
[2020-06-16] MEDS ORDERED: CATHETER FLUSH 10 ML SYR IV PRN ×2 (12:30→13:15)
[2020-06-16] MEDS ORDERED: ONDANSETRON 4 MG/2 ML (SDV) Z0FRAN IV PRN (12:30)
[2020-06-16] MEDS ORDERED: ACETAMINOPHEN 325 MG TABLET PO PRN (12:30)
--- NOTE | 2020-06-16 12:52 | NUR ---
CR 1.17; CR CL ~42; WT 63.5 KG; VANCO 1250 MG IV BOLUS GIVEN; CONTINUE WITH VANCO 1000 MG IV Q24H X 2 MORE DAYS
[2020-06-16] MEDS ORDERED: VASOPRESSIN INJECTION 20 UNIT in NORMAL SALINE 100 ML IV SCH (12:55)
[2020-06-16] MEDS ORDERED: NOREPINEPHRINE 4 MG/250 ML 250 ML IV SCH (12:55)
[2020-06-16] MEDS ORDERED: EPINEPHrine 1 MG INJECTION 4 MG in NS (IVPB) 248 ML IV SCH (13:00)
--- NOTE | 2020-06-16 14:43 | History & Physical-Hospitalist ---
History of Present Illness HPI/Chief Complaint patient is a 74-year-old Male with past history of CAD, PAD s/p L BKA, IDDMII who presented to the ER due to altered mental status. He was discharged from here on Saturday following and NSTEMI with stent placement. He is quite sleepy and does not answer questions, which is markedly different than how he was Saturday. His provides the history. She states he has done well since discharge until today. Yesterday she noticed a loose cough and thought he had a low grade fever but that mentally he was him normal self and making jokes. Today his mentation worsened prompting her to call EMS and bring him here for evaluation. He was found to have bilateral pneumonia and UTI consistent with sepsis. Troponin was also elevated at 2.4 up considerably from last week at 0.063. reports he has been complaint with his DAPT Source: family Date Seen 06/16/20 Time Seen by a Provider: 14:33 Attending Physician Hawa Snow MD PCP Los Larose DO Referring Physician Date of Admission Jun 16, 2020 at 11:00 Home Medications & Allergies Home Medications Reviewed patient Home Medication Reconciliation performed by pharmacy medication reconciliations landscape management technician and/or nursing. Patients Allergies have been reviewed. Allergies Allergies Coded Allergies Sulfa (Sulfonamide Antibiotics) (Verified Allergy, Severe, HIVES, 07/19/19) temazepam (Verified Allergy, Severe, 07/19/19) MENTAL CONFUSION hydromorphone (Verified Allergy, Unknown, 07/19/19) zolpidem (Verified Allergy, Unknown, 06/09/20) pravastatin (Verified Adverse Reaction, Severe, RASH, 07/19/19) Past Wpnaazt-Rgpbzc-Rdryxb Hx Past Med/Social Hx: Reviewed Nursing Past Med/Soc Hx Patient Social History Marrital Status: Alcohol Use: Denies Use Recreational Drug Use: No Smoking Status: Former Smoker Former Smoker, Quit: Oct 07, 1979 Type Used: Cigars 2nd Hand Smoke Exposure: No Recent Foreign Travel: No Contact w/other who traveled: No Recent Hopitalizations: Yes (Heart Cath, X2 stents) Recent Infectious Disease Expo: No Seasonal Allergies Seasonal Allergies: No Past Medical History Surgeries: Amputation, Cardiac, Coronary Stent, Neurological, Orthopedic, Prostatectomy, Transurethral Resection, Vascular Surgery Currently Using CPAP: No Currently Using BIPAP: No Cardiac: Chronic Edema/Swelling, Coronary Artery Disease, Heart Attack, High Cholesterol, Hypertension, Peripheral Vascular Neurological: Neuropathy Reproductive: No Sexually Transmitted Disease: No HIV/AIDS: No Genitourinary: Benign Prostatic Hyperpl, Prostate Problems, UTI-Chronic Gastrointestinal: Chronic Constipation Musculoskeletal: Amputee, Degenerate Disk Disease, Arthritis, Chronic Back Pain Endocrine: Diabetes, Insulin dep HEENT: Cataract, Dysphagia Loss of Vision: Denies Hearing Impairment: Denies Did You Recieve Any Treatments: No Psychosocial: Sleep Difficulties, Anxiety, Depression Skin/Integumentary: Recent Skin Changes History of Blood Disorders: No Adverse Reaction to Blood Hernandez: No Family History Reviewed Nursing Family Hx Abdominal aortic aneurysm G8 SISTER Alcoholism G8 BROTHER G8 BROTHER G8 BROTHER Arthritis G8 BROTHER G8 BROTHER G8 BROTHER G8 BROTHER G8 BROTHER G8 SISTER G8 SISTER Cardiovascular disease G8 SISTER Diabetes mellitus G8 BROTHER G8 BROTHER G8 BROTHER G8 SISTER G8 SISTER Drug abuse G8 BROTHER G8 BROTHER FH: COPD (chronic obstructive pulmonary disease) 19 FATHER FH: bladder cancer 19 MOTHER FH: prostate cancer 19 FATHER Headache disorder G8 BROTHER G8 BROTHER G8 BROTHER G8 BROTHER G8 BROTHER G8 BROTHER G8 BROTHER G8 BROTHER G8 SISTER G8 SISTER G8 SISTER G8 SISTER Hypercholesterolemia G8 BROTHER G8 BROTHER G8 BROTHER G8 BROTHER G8 BROTHER G8 SISTER G8 SISTER G8 SISTER G8 SISTER Hypertension 19 FATHER G8 BROTHER G8 BROTHER G8 BROTHER G8 BROTHER G8 BROTHER G8 BROTHER G8 BROTHER G8 BROTHER G8 SISTER G8 SISTER G8 SISTER G8 SISTER Thyroid disease Tuberculosis 19 FATHER Review of Systems ROS-Unable to Obtain: AMS Constitutional: see HPI Physical Exam Physical Exam Vital Signs Vital Signs - First Documented 06/16/20 06/16/20 08:45 11:47 Temp 36.3 Pulse 99 Resp 28 B/P (MAP) 102/69 (80) Pulse Ox 94 O2 Delivery Room Air O2 Flow Rate 3.00 Capillary Refill : Less Than 3 Seconds Height, Weight, BMI Height: 5'9.00" Weight: 139lbs. 0.0oz. 63.228699ky; 25.12 BMI Method:Stated General Appearance: Chronically ill, Other (sleepy) HEENT: Moist Mucous Membranes, Other (only opened eyes briefly) Neck: Other (central line in place) Respiratory: No Accessory Muscle Use, Rhonci; No Wheezing Cardiovascular: Regular Rate, Rhythm, No Murmur Gastrointestinal: Normal Bowel Sounds, Non Tender, Soft Extremity: No Pedal Edema, Other (s/p lower extremity amputation on left) Neurologic/Psychiatric: Other (altered, sleeping, awakens to physical stimuli but only briefly with eye opening) Skin: Normal Color, Warm/Dry Results Results/Procedures Labs Laboratory Tests 06/16/20 09:14 Patient resulted labs reviewed. Imaging: Reviewed Imaging Report Imaging [facility] [place], [place] NAME: ARLIN CANCINO [facility] REC#: [id number] PT STATUS: REG ER : 1945 PHYSICIAN: MART GALLARDO MD ADMIT DATE: 06/16/20/ER Draft Date of Exam:06/16/20 CHEST 1 VIEW, AP/PA ONLY INDICATION: Unresponsive. Time of exam: 9:46 AM Correlation is made with prior chest from 06/09/2020. Right IJ line has tip overlying the SVC. There are infiltrates/atelectasis bilateral perihilar and bibasilar regions. These have significantly increased since the examination one week earlier. No effusion is identified. There is no pneumothorax. IMPRESSION: Increasing bilateral perihilar and bibasilar infiltrates since examination one week earlier. Dictated on workstation # [id number] Dict: 06/16/2047 Trans: 06/16/20 0952 CARMINA [id number] Interpreted by: BOB IYER MD Electronically signed by: Assessment/Plan Admission Diagnosis Sepsis Admission Status: Inpatient Order (span 2 midnights) Reason for Inpatient Admission: see below Assessment and Plan Sepsis UTI PNA Continue on IV abx Await cultures COVID pending as he was just in [facility] on 06/07 when their outbreak started and he was febrile yesterday with a cough Previously has grown Morganella morganni sensitive to rocephin NSTEMI CAD PAD Cardiology consulted Troponin up significantly since last visit Continue Lovenox, ASA, Plavix IDDMII SSI with accuchecks DVt ppx: Lovenox Diagnosis/Problems Diagnosis/Problems (1) PNA (pneumonia) Qualifiers: Pneumonia type: due to unspecified organism Laterality: bilateral Lung location: unspecified part of lung Qualified Codes: J18.9 - Pneumonia, unspecified organism (2) BPH (benign prostatic hyperplasia) Status: Chronic Qualifiers: Lower urinary tract symptom presence: unspecified whether lower urinary tract symptoms present Qualified Codes: N40.0 - Benign prostatic hyperplasia without lower urinary tract symptoms (3) HLD (hyperlipidemia) Status: Chronic Qualifiers: Hyperlipidemia type: unspecified Qualified Codes: E78.5 - Hyperlipidemia, unspecified (4) HTN (hypertension) Status: Acute (5) Status post coronary artery stent placement Status: Acute (6) S/P AKA (above knee amputation) unilateral Status: Chronic (7) UTI (urinary tract infection) Qualifiers: Urinary tract infection type: acute cystitis Hematuria presence: without hematuria Qualified Codes: N30.00 - Acute cystitis without hematuria (8) Sepsis Qualifiers: Sepsis type: sepsis due to unspecified organism Sepsis acute organ dysfunction status: with acute organ dysfunction Severe sepsis acute organ dysfunction type: encephalopathy Severe sepsis shock status: without septic shock Qualified Codes: A41.9 - Sepsis, unspecified organism; R65.20 - Severe sepsis without septic shock; G93.40 - Encephalopathy, unspecified (9) Elevated troponin I level Status: Acute (10) CAD (coronary artery disease) Status: Chronic Qualifiers: Coronary Disease-Associated Artery/Lesion type: pala artery [place] vs. transplanted heart: pala heart Associated angina: without angina Qualified Codes: I25.10 - Atherosclerotic heart disease of pala coronary artery without angina pectoris (11) Non-STEMI (non-ST elevated myocardial infarction) Status: Acute (12) IDDM (insulin dependent diabetes mellitus) Status: Chronic Clinical Quality Measures DVT/VTE Risk/Contraindication: Risk Factor Score Per Nursin RFS Level Per Nursing on Admit: 4+=Very High HAWA SNOW MD Jun 16, 2020 14:43
[2020-06-16] MEDS: inSUlin ASPART (NovoLOG) 1 UNIT/0.01 ML (CHARGE PER UNIT) SC SCH ×2 (16:17→20:51)
--- NOTE | 2020-06-16 16:20 | NUR ---
DR. HARDIN AT PT BEDSIDE TO ASSESS PT.
--- NOTE | 2020-06-16 16:35 | Pulmonary Consultation ---
History of Present Illness History of Present Illness Date Seen by Provider: Jun 16, 2020 Time Seen by Provider: 16:33 Date of Admission Allergies and Home Medications Allergies Coded Allergies: Sulfa (Sulfonamide Antibiotics) (Verified Allergy, Severe, HIVES, 07/19/19) temazepam (Verified Allergy, Severe, 07/19/19) MENTAL CONFUSION hydromorphone (Verified Allergy, Unknown, 07/19/19) zolpidem (Verified Allergy, Unknown, 06/09/20) pravastatin (Verified Adverse Reaction, Severe, RASH, 07/19/19) Home Medications Acetaminophen 325 Mg Capsule, 650 MG PO Q6H PRN for PAIN-MILD (1-4), (Reported) Amlodipine Besylate 5 Mg Tablet, 5 MG PO DAILY Prescribed by: HAWA BILLINGS on 06/12/20 1229 Aspirin 81 Mg Tab.chew, 81 MG PO DAILY@0900 Prescribed by: HAWA BILLINGS on 06/12/20 1229 Atorvastatin Calcium 10 Mg Tablet, 10 MG PO HS, (Reported) Baclofen 10 Mg Tablet, 10 MG PO Q8H PRN for MUSCLE SPASMS, (Reported) Bisacodyl 10 Mg Supp.rect, 10 MG RC DAILY PRN for CONSTIPATION-4TH LINE, (Reported) Carvedilol 25 Mg Tablet, 25 MG PO BID, (Reported) NOTIFY MD IF SBP<90 OR >200 OR PULSE <50 Clopidogrel Bisulfate 75 Mg Tablet, 75 MG PO DAILY, (Reported) Docusate Sodium 100 Mg Capsule, 300 MG PO HS, (Reported) TAKES 3 (100MG) CAPSULES Finasteride 5 Mg Tablet, 5 MG PO HS, (Reported) Furosemide 40 Mg Tablet, 40 MG PO DAILY, (Reported) Gabapentin 600 Mg Tablet, 600 MG PO 0800,2200, (Reported) Gabapentin 300 Mg Capsule, 300 MG PO 1600, (Reported) Glipizide 5 Mg Tablet, 5 MG PO DAILY, (Reported) Hydralazine HCl 100 Mg Tablet, 100 MG PO QID, (Reported) HOLD AND NOTIFY MED FOR SBP<110 Hydrocodone Bit/Acetaminophen 1 Each Tablet, 1 TAB PO TID PRN for PAIN-MODERATE, (Reported) Hydrocodone/Acetaminophen 1 Each Tablet, 1 TAB PO HS, (Reported) Insulin Glargine,Hum.rec.anlog 300 Unit/1 Ml Insuln.pen, 6 UNIT SQ DAILY, (Reported) Isosorbide Mononitrate 60 Mg Tab, 90 MG PO DAILY, (Reported) TAKES 1 & 1/2 (60MG) TABLET Lactulose 10 Gm/15 Ml Solution, 15 ML PO DAILY, (Reported) Mag Hydrox/Al Hydrox/Simeth Unknown Strength Oral.susp, 30 ML PO Q4H PRN for INDIGESTION, (Reported) Magnesium Citrate 296 Ml Solution, 296 ML PO EVERY 4 DAYS PRN for CONSTIPATION- 9TH LINE, (Reported) 1 BOTTLE EVERY 4 DAYS, IF NO BOWEL MOVEMENT, NEEDED FOR CONSTIPATION Magnesium Hydroxide 400 Mg/5 Ml Oral.susp, 30 ML PO DAILY PRN for CONSTIPATION- 7TH LINE, (Reported) Menthol 118 Ml Gel..ml., 1 APPLIC TP QID PRN for PAIN-BREAKTHROUGH, (Reported) Na Phos,M-B/Na Phos,Di-Ba 133 Ml Enema, 133 ML RC DAILY PRN for CONSTIPATION, (Reported) Ondansetron 8 Mg Tab.rapdis, 8 MG PO TID, (Reported) Pantoprazole Sodium 20 Mg Tablet.dr, 20 MG PO DAILY, (Reported) Phenazopyridine HCl 200 Mg Tablet, 200 MG PO TID PRN for BLADDER SPASMS, ( Reported) Polyethylene Glycol 3350 17 Gm Powd.pack, 17 GM PO DAILY, (Reported) Potassium Chloride 10 Meq Tab.er.prt, 10 MEQ PO DAILY, (Reported) Tamsulosin HCl 0.4 Mg Cap, 0.4 MG PO DAILY, (Reported) Terazosin HCl 1 Mg Capsule, 1 MG PO BID, (Reported) Testosterone 75 Gm Gel.knitter mechanic, 2 PUMP TD DAILY, (Reported) Trazodone HCl 50 Mg Tablet, 50 MG PO HS, (Reported) Past Vnljwwm-Pzobdd-Nmrhcg Hx Past Med/Social Hx: Reviewed Nursing Past Med/Soc Hx Patient Social History Alcohol Use: Denies Use Recreational Drug Use: No Smoking Status: Former Smoker Type Used: Cigars Former Smoker, Quit: Oct 07, 1979 2nd Hand Smoke Exposure: No Recent Foreign Travel: No Contact w/Someone Who Travel: No Recent Infectious Disease Expo: No Recent Hopitalizations: Yes (Heart Cath, X2 stents) Physical Abuse: No Sexual Abuse: No Seasonal Allergies Seasonal Allergies: No Past Medical History Surgeries: Yes Amputation, Cardiac, Coronary Stent, Neurological, Orthopedic, Prostatectomy, Transurethral Resection, Vascular Surgery Respiratory: Yes Pneumonia, Sleep Apnea Currently Using CPAP: No Currently Using BIPAP: No Cardiac: Yes Chronic Edema/Swelling, Coronary Artery Disease, Heart Attack, High Cholesterol, Hypertension, Peripheral Vascular Neurological: Yes Neuropathy Reproductive Disorders: No Sexually Transmitted Disease: No HIV/AIDS: No Genitourinary: Yes (PROSTATE SURGERY) Benign Prostatic Hyperpl, Prostate Problems, UTI-Chronic Gastrointestinal: Yes Chronic Constipation Musculoskeletal: Yes Amputee, Degenerate Disk Disease, Arthritis, Chronic Back Pain Endocrine: Yes Diabetes, Insulin dep HEENT: Yes (Cataract- right eye; POOR DENTITION) Cataract, Dysphagia Loss of Vision: Denies Hearing Impairment: Denies Cancer: No Did You Recieve Any Treatments: No Psychosocial: Yes Sleep Difficulties, Anxiety, Depression Integumentary: Yes (GANGRENE AND INFECTION IN LEFT FOOT; CHRONIC WOUNDS TO RIGHT LEG AND FOOT. ) Recent Skin Changes Blood Disorders: No Adverse Reaction/Blood Tranf: No Family Medical History Reviewed Nursing Family Hx Abdominal aortic aneurysm G8 SISTER Alcoholism G8 BROTHER G8 BROTHER G8 BROTHER Arthritis G8 BROTHER G8 BROTHER G8 BROTHER G8 BROTHER G8 BROTHER G8 SISTER G8 SISTER Cardiovascular disease G8 SISTER Diabetes mellitus G8 BROTHER G8 BROTHER G8 BROTHER G8 SISTER G8 SISTER Drug abuse G8 BROTHER G8 BROTHER FH: COPD (chronic obstructive pulmonary disease) 19 FATHER FH: bladder cancer 19 MOTHER FH: prostate cancer 19 FATHER Headache disorder G8 BROTHER G8 BROTHER G8 BROTHER G8 BROTHER G8 BROTHER G8 BROTHER G8 BROTHER G8 BROTHER G8 SISTER G8 SISTER G8 SISTER G8 SISTER Hypercholesterolemia G8 BROTHER G8 BROTHER G8 BROTHER G8 BROTHER G8 BROTHER G8 SISTER G8 SISTER G8 SISTER G8 SISTER Hypertension 19 FATHER G8 BROTHER G8 BROTHER G8 BROTHER G8 BROTHER G8 BROTHER G8 BROTHER G8 BROTHER G8 BROTHER G8 SISTER G8 SISTER G8 SISTER G8 SISTER Thyroid disease Tuberculosis 19 FATHER Review of Systems Time Seen by Provider: 16:35 Sepsis Event Evaluation Height, Weight, BMI Height: 5'9.00" Weight: 139lbs. 0.0oz. 63.191298nm; 25.12 BMI Method:Stated Exam Exam Vital Signs Date Time Temp Pulse Resp B/P (MAP) Pulse Ox O2 Delivery O2 Flow Rate FiO2 06/16/20 16:30 37.8 06/16/20 16:18 37.8 83 18 154/66 (95) 100 Nasal Cannula 2.00 06/16/20 16:00 113/56 (75) 06/16/20 15:30 152/69 (96) 06/16/20 15:00 81 16 140/61 (87) 100 Nasal Cannula 2.00 06/16/20 14:30 94/47 (63) 06/16/20 14:00 128/61 (83) 06/16/20 13:35 93 165/71 (102) 100 Nasal Cannula 2.00 06/16/20 13:26 94 174/73 (106) 95 Nasal Cannula 2.00 06/16/20 13:11 Nasal Cannula 2.00 06/16/20 13:07 37.0 94 18 146/65 99 Room Air 2.00 06/16/20 13:03 83 104/51 (68) 06/16/20 13:00 91/53 (66) 06/16/20 12:45 96/50 (65) 06/16/20 12:33 93 06/16/20 12:28 37.0 94 18 146/65 (92) 99 Room Air 2.00 06/16/20 11:47 37.8 118 20 145/95 97 Nasal Cannula 3.00 06/16/20 08:45 36.3 99 28 102/69 (80) 94 Room Air Height & Weight Height: 5'9.00" Weight: 139lbs. 0.0oz. 63.708260kg; 25.12 BMI Method:Stated General Appearance: Chronically ill, Other (sleepy) HEENT: Moist Mucous Membranes, Other (only opened eyes briefly) Neck: Other (central line in place) Respiratory: No Accessory Muscle Use, Rhonci; No Wheezing Cardiovascular: Regular Rate, Rhythm, No Murmur Capillary Refill: Less Than 3 Seconds Peripheral Pulses: 2+ Radial Pulses (R), 2+ Radial Pulses (L) Extremity: No Pedal Edema, Other (s/p lower extremity amputation on left) Neurologic/Psychiatric: Other (altered, sleeping, awakens to physical stimuli but only briefly with eye opening) Skin: Normal Color, Warm/Dry Results Lab Laboratory Tests 06/16/20 09:14 Assessment/Plan Assessment/Plan Pneumonia with sepsis -Continue Abx -Asencio cultures -IVF -COVID pending -Check urine strep and legionella ag UTI NSTEMI -Cardiology following CAD LARISSA CHASE DO Jun 16, 2020 16:35
--- NOTE | 2020-06-16 17:02 | Consultation-Cardiology ---
HPI-Cardiology Cardiology Consultation Date of Consultation 06/16/20 Date of Admission Time Seen by Provider: 16:35 HPI 74 years old gentleman with extensive cardiac history, extensive coronary artery disease, peripheral arterial disease with left BKA, diabetes mellitus. Was discharged recently from the hospital following non-ST elevation myocardial infarction and stent placement by Dr. Lomas. He was brought to the emergency room due to generalized lethargy, change in mental status. He opens his eyes but does not respond appropriately to any questions. It was reported that he had a low-grade fever and he was having some cough. It was reported that he deteriorated significantly this morning. Brought to the emergency room, noted to have elevated troponin level. No reported chest pain or shortness of breath. No palpitation Home Medications & Allergies Allergies: Coded Allergies: Sulfa (Sulfonamide Antibiotics) (Verified Allergy, Severe, HIVES, 07/19/19) temazepam (Verified Allergy, Severe, 07/19/19) MENTAL CONFUSION hydromorphone (Verified Allergy, Unknown, 07/19/19) zolpidem (Verified Allergy, Unknown, 06/09/20) pravastatin (Verified Adverse Reaction, Severe, RASH, 07/19/19) Home Medication List Reviewed: Yes IJA-Rwkehi-Veomzd Hx Patient Social History Marital Status: Alcohol Use: Denies Use Recreational Drug Use: No Smoking Status: Former Smoker Former smoker/When Quit: Dec 29, 1979 Type Used: Cigars 2nd Hand Smoke Exposure: No Recent Foreign Travel: No Recent Infectious Disease Expo: No Recent Hopitalizations: Yes (Heart Cath, X2 stents) Past Medical History Discussed below Family Medical History Family History: Abdominal aortic aneurysm G8 SISTER Alcoholism G8 BROTHER G8 BROTHER G8 BROTHER Arthritis G8 BROTHER G8 BROTHER G8 BROTHER G8 BROTHER G8 BROTHER G8 SISTER G8 SISTER Cardiovascular disease G8 SISTER Diabetes mellitus G8 BROTHER G8 BROTHER G8 BROTHER G8 SISTER G8 SISTER Drug abuse G8 BROTHER G8 BROTHER FH: COPD (chronic obstructive pulmonary disease) 19 FATHER FH: bladder cancer 19 MOTHER FH: prostate cancer 19 FATHER Headache disorder G8 BROTHER G8 BROTHER G8 BROTHER G8 BROTHER G8 BROTHER G8 BROTHER G8 BROTHER G8 BROTHER G8 SISTER G8 SISTER G8 SISTER G8 SISTER Hypercholesterolemia G8 BROTHER G8 BROTHER G8 BROTHER G8 BROTHER G8 BROTHER G8 SISTER G8 SISTER G8 SISTER G8 SISTER Hypertension 19 FATHER G8 BROTHER G8 BROTHER G8 BROTHER G8 BROTHER G8 BROTHER G8 BROTHER G8 BROTHER G8 BROTHER G8 SISTER G8 SISTER G8 SISTER G8 SISTER Thyroid disease Tuberculosis 19 FATHER Review of Systems-General Review of Systems Constitutional: see HPI, other (unable to provide review of system as described above) EENTM: No ear discharge, No blurred vision Respiratory: cough, phlegm, short of breath Cardiovascular: No edema; Hx of Intervention, vascular heart diseas Gastrointestinal: No abdominal pain, No vomiting Genitourinary: No discharge, No dysuria Musculoskeletal: No back pain, No joint pain Skin: dryness; No pruritus, No rash; other (sacral decubitus chronic and right foot decubitus) Psychiatric/Neurological: Denies Anxiety, Denies Depressed All Other Systems Reviewed Negative Unless Noted: Yes Reviewed Test Results Reviewed Test Results Lab Laboratory Tests Test 06/16/20 08:43 06/16/20 09:14 06/16/20 09:25 06/16/20 10:02 Range/Units Blood Gas Puncture Site LEFT RADIAL Blood Gas Patient Temperature 96.7 Arterial Blood pH 7.37 7.37-7.43 Arterial Blood Partial Pressure CO2 50 H 35-45 MMHG Arterial Blood Partial Pressure O2 54 L 79-93 MMHG Arterial Blood HCO3 28 H 23-27 MMOL/L Arterial Blood Total CO2 29.9 21.0-31.0 MMOL/L Arterial Blood Oxygen Saturation 87 L 94-100 % Arterial Blood Base Excess 3.2 H -2.5-2.5 MMOL/L Brent Test POSITIVE Blood Gas Ventilator Setting NO Blood Gas Inspired Oxygen N/A White Blood Count 7.4 4.3-11.0 10^3/uL Red Blood Count 4.16 L 4.35-5.85 10^6/uL Hemoglobin 11.5 L 13.3-17.7 G/DL Hematocrit 36 L 40-54 % Mean Corpuscular Volume 87 80-99 FL Mean Corpuscular Hemoglobin 28 25-34 PG Mean Corpuscular Hemoglobin Concent 32 32-36 G/DL Red Cell Distribution Width 14.2 10.0-14.5 % Platelet Count 238 130-400 10^3/uL Mean Platelet Volume 10.8 H 7.4-10.4 FL Neutrophils (%) (Auto) 82 H 42-75 % Lymphocytes (%) (Auto) 7 L 12-44 % Monocytes (%) (Auto) 9 0-12 % Eosinophils (%) (Auto) 2 0-10 % Basophils (%) (Auto) 0 0-10 % Neutrophils # (Auto) 6.1 1.8-7.8 X 10^3 Lymphocytes # (Auto) 0.5 L 1.0-4.0 X 10^3 Monocytes # (Auto) 0.6 0.0-1.0 X 10^3 Eosinophils # (Auto) 0.1 0.0-0.3 10^3/uL Basophils # (Auto) 0.0 0.0-0.1 10^3/uL Neutrophils % (Manual) 86 % Lymphocytes % (Manual) 7 % Monocytes % (Manual) 3 % Eosinophils % (Manual) 1 % Basophils % (Manual) 0 % Band Neutrophils 3 % Poikilocytosis SLIGHT Prothrombin Time 13.7 12.2-14.7 SEC INR Comment 1.0 0.8-1.4 Activated Partial Thromboplast Time 28 24-35 SEC D-Dimer 3.36 H 0.00-0.49 UG/ML Urine Color YELLOW Urine Clarity CLEAR Urine pH 6.0 5-9 Urine Specific [place] 1.010 L 1.016-1.022 Urine Protein TRACE H NEGATIVE Urine Glucose (UA) TRACE H NEGATIVE Urine Ketones NEGATIVE NEGATIVE Urine Nitrite POSITIVE H NEGATIVE Urine Bilirubin NEGATIVE NEGATIVE Urine Urobilinogen 0.2 < = 1.0 MG/DL Urine Leukocyte Esterase 2+ H NEGATIVE Urine RBC (Auto) TRACE-I NEGATIVE Urine RBC RARE /HPF Urine WBC 25-50 H /HPF Urine Squamous Epithelial Cells RARE /HPF Urine Crystals NONE /LPF Urine Bacteria MODERATE H /HPF Urine Casts NONE /LPF Urine Mucus NEGATIVE /LPF Urine Culture Indicated YES Sodium Level 142 135-145 MMOL/L Potassium Level 4.0 3.6-5.0 MMOL/L Chloride Level 106 98-107 MMOL/L Carbon Dioxide Level 27 21-32 MMOL/L Anion Gap 9 5-14 MMOL/L Blood Urea Nitrogen 23 H 7-18 MG/DL Creatinine 1.17 0.60-1.30 MG/DL Estimat Glomerular Filtration Rate > 60 BUN/Creatinine Ratio 20 Glucose Level 177 H 70-105 MG/DL Lactic Acid Level 0.80 0.50-2.00 MMOL/L Calcium Level 9.4 8.5-10.1 MG/DL Corrected Calcium 9.8 8.5-10.1 MG/DL Total Bilirubin 0.3 0.1-1.0 MG/DL Aspartate Amino Transf (AST/SGOT) 11 5-34 U/L Alanine Aminotransferase (ALT/SGPT) 9 0-55 U/L Alkaline Phosphatase 83 40-136 U/L Troponin I 2.448 *H <0.028 NG/ML C-Reactive Protein High Sensitivity 1.41 H 0.00-0.50 MG/DL B-Type Natriuretic Peptide 33.3 <100.0 PG/ML Total Protein 7.0 6.4-8.2 GM/DL Albumin 3.5 3.2-4.5 GM/DL Procalcitonin 0.45 H <0.10 NG/ML Coronavirus 2019 ([facility]REY) Negative Negative Test 06/16/20 13:27 06/16/20 15:00 06/16/20 15:02 06/16/20 16:12 Range/Units Lactic Acid Level 0.81 0.50-2.00 MMOL/L Troponin I 1.894 *H <0.028 NG/ML Glucometer 122 H 70-110 MG/DL Physical Exam Physical Exam Vital Signs Vital Signs - First Documented 06/16/20 06/16/20 08:45 11:47 Temp 36.3 Pulse 99 Resp 28 B/P (MAP) 102/69 (80) Pulse Ox 94 O2 Delivery Room Air O2 Flow Rate 3.00 Capillary Refill : Less Than 3 Seconds Height, Weight, BMI Height: 5'9.00" Weight: 139lbs. 0.0oz. 63.216345fa; 25.12 BMI Method:Stated General Appearance: Chronically ill, Other (sleepy) Eyes: Bilateral Eye Normal Inspection, Bilateral Eye PERRL, Bilateral Eye EOMI HEENT: Moist Mucous Membranes, Other (only opened eyes briefly) Neck: Other (central line in place) Respiratory: Lungs Clear, No Accessory Muscle Use, Rhonci; No Wheezing Cardiovascular: Regular Rate, Rhythm, No Murmur Gastrointestinal: Normal Bowel Sounds, Non Tender, Soft Extremity: No Pedal Edema, Other (s/p lower extremity amputation on left) Neurologic/Psychiatric: Other (altered, sleeping, awakens to physical stimuli but only briefly with eye opening) Skin: Normal Color, Warm/Dry A/P-Cardiology Admission Diagnosis Non-ST elevation myocardial infarction Change in mental status Sepsis Urinary tract infection Assessment/Plan Non-ST elevation myocardial infarction, EKG did not show any acute changes, diffuse nonspecific T wave abnormality was noted, have significant elevation in troponin that is trending down. Patient has extensive coronary artery disease, known to have 2 stents to the right coronary artery in 2019 followed by stenting to the mid LAD in 2019 and received another stenting to the LAD proximally last week with Dr. Lomas. Has been maintained on dual antiplatelet therapy. Patient also has severe distal LAD stenosis and distal right coronary artery stenosis the artery is fairly small and not amendable to intervention. Elevated troponin could be due to sepsis in addition to significant coronary artery disease. No signs of acute stent thrombosis noted on EKG. Acute change in mental status, probably secondary to sepsis. Managed by primary care team Fever, cough. Pulmonary infiltrate. Receiving antibiotics. Managed by primary care team Urinary tract infection, receiving antibiotics, managed by primary care team COVID rapid test is negative, repeat test is pending History of ischemic cardiomyopathy. Continue to monitor closely Hypertension, monitor blood pressure no changes Hyperlipidemia maintained on statin Diabetes mellitus. History of CVA. Continue to monitor Anemia, monitor H&H Clinical Quality Measures DVT/VTE Risk/Contraindication: Risk Factor Score Per Nursin RFS Level Per Nursing on Admit: 4+=Very High REBECA HARDIN MD Jun 16, 2020 17:02
[2020-06-16] MEDS: CEFEPIME 1,000 MG/SWFI 10 ML IV PUSH IV SCH ×2 (18:24)
[2020-06-16] MEDS: morphine INJ 4 MG/ML 1 ML (VIAL/SYRINGE) IV PRN ×2 (18:25→20:59)
[2020-06-16] MEDS: SILVASORB GEL 1.5 OZ TP SCH (21:06)
[2020-06-16] MEDS ORDERED: ENOXAPARIN 60 MG/0.6 ML (LOVENOX) SYR SC SCH (23:00)
[2020-06-17] VITALS (11 sets, daily range): BP systolic 136–225; BP diastolic 70–96
[2020-06-17] MEDS: morphine INJ 4 MG/ML 1 ML (VIAL/SYRINGE) IV PRN ×6 (00:55→21:59)
[2020-06-17] MEDS: CEFEPIME 1,000 MG/SWFI 10 ML IV PUSH IV SCH ×6 (04:12→18:04)
[2020-06-17] MEDS: NS IV 1000 ML 1,000 ML IV SCH ×4 (04:29→21:58)
[2020-06-17 04:33] LABS: BASOPHILS % (AUTO) 0 % (0-10); EOSINOPHILS # (AUTO) 0.1 10^3/uL (0.0-0.3); EOSINOPHILS % (AUTO) 1 % (0-10); HEMATOCRIT 30 % (40-54); HEMOGLOBIN 9.4 G/DL (13.3-17.7); LYMPHOCYTES # (AUTO) 0.9 X 10^3 (1.0-4.0); LYMPHOCYTES % (AUTO) 10 % (12-44); MEAN CORPUSCULAR HEMOGLOBIN 28 PG (25-34); MEAN CORPUSCULAR HGB CONC 32 G/DL (32-36); MEAN CORPUSCULAR VOLUME 88 FL (80-99); MEAN PLATELET VOLUME 10.8 FL (7.4-10.4); MONOCYTES # (AUTO) 0.8 X 10^3 (0.0-1.0); MONOCYTES % (AUTO) 9 % (0-12); NEUTROPHILS # (AUTO) 6.7 X 10^3 (1.8-7.8); NEUTROPHILS % (AUTO) 80 % (42-75); PLATELET COUNT 207 10^3/uL (130-400); WHITE BLOOD COUNT 8.4 10^3/uL (4.3-11.0)
[2020-06-17 04:48] LABS: CHLORIDE 112 MMOL/L (98-107); POTASSIUM 3.6 MMOL/L (3.6-5.0); SODIUM 143 MMOL/L (135-145)
[2020-06-17 04:49] LABS: CALCIUM 8.8 MG/DL (8.5-10.1)
[2020-06-17 04:50] LABS: GLUCOSE 72 MG/DL (70-105)
[2020-06-17 04:51] LABS: TOTAL PROTEIN 6.2 GM/DL (6.4-8.2)
[2020-06-17 04:52] LABS: BILIRUBIN,TOTAL 0.5 MG/DL (0.1-1.0); CARBON DIOXIDE 23 MMOL/L (21-32)
[2020-06-17 04:54] LABS: ALKALINE PHOSPHATASE 59 U/L (40-136); CREATININE SERUM 0.73 MG/DL (0.60-1.30); GFR ESTIMATED > 60
[2020-06-17 04:55] LABS: BUN/CREATININE RATIO 21
[2020-06-17 04:57] LABS: ALANINE AMINOTRANSFERASE 8 U/L (0-55)
[2020-06-17] MEDS ORDERED: meTOprolol 5 MG/5 ML (LOPRESSOR) VIAL IV ONE (05:00)
[2020-06-17] MEDS ORDERED: meTOprolol 5 MG/5 ML (LOPRESSOR) VIAL ONE (05:07)
[2020-06-17] MEDS: inSUlin ASPART (NovoLOG) 1 UNIT/0.01 ML (CHARGE PER UNIT) SC SCH ×4 (05:17→20:51)
--- NOTE | 2020-06-17 06:18 | Pulmonary Progress Note ---
Subjective Time Seen by a Provider: 06:16 Subjective/Events-last exam No complications noted. Sepsis Event Evaluation Height, Weight, BMI Height: 5'9.00" Weight: 139lbs. 0.0oz. 63.872489up; 25.12 BMI Method:Stated Focused Exam Lactate Level 06/16/20 09:14: Lactic Acid Level 0.80 06/16/20 13:27: Lactic Acid Level 0.81 Time of Focused Exam: 10:57 Exam Exam Vital Signs Date Time Temp Pulse Resp B/P (MAP) Pulse Ox O2 Delivery O2 Flow Rate FiO2 06/17/20 04:15 37.3 79 22 205/91 (129) 98 Nasal Cannula 2.00 06/17/20 04:00 100 Nasal Cannula 2.00 06/17/20 01:00 83 06/17/20 00:58 198/82 (120) 06/17/20 00:56 37.4 80 22 216/82 (126) 100 Nasal Cannula 2.00 06/17/20 00:45 220/80 (126) 06/17/20 00:00 100 Nasal Cannula 2.00 06/16/20 21:00 Nasal Cannula 2.00 06/16/20 21:00 97 Nasal Cannula 2.00 06/16/20 20:51 37.3 06/16/20 20:51 82 20 184/79 (114) 97 Nasal Cannula 2.00 06/16/20 20:00 97 Nasal Cannula 2.00 06/16/20 19:00 80 06/16/20 17:00 37.8 06/16/20 16:38 100 Nasal Cannula 2.00 06/16/20 16:30 37.8 06/16/20 16:18 37.8 83 18 154/66 (95) 100 Nasal Cannula 2.00 06/16/20 16:00 113/56 (75) 06/16/20 15:30 152/69 (96) 06/16/20 15:00 81 16 140/61 (87) 100 Nasal Cannula 2.00 06/16/20 14:30 94/47 (63) 06/16/20 14:00 128/61 (83) 06/16/20 13:35 93 165/71 (102) 100 Nasal Cannula 2.00 06/16/20 13:26 94 174/73 (106) 95 Nasal Cannula 2.00 06/16/20 13:11 Nasal Cannula 2.00 06/16/20 13:07 37.0 94 18 146/65 99 Room Air 2.00 06/16/20 13:03 83 104/51 (68) 06/16/20 13:00 91/53 (66) 06/16/20 12:45 96/50 (65) 06/16/20 12:33 93 06/16/20 12:28 37.0 94 18 146/65 (92) 99 Room Air 2.00 06/16/20 11:47 37.8 118 20 145/95 97 Nasal Cannula 3.00 06/16/20 08:45 36.3 99 28 102/69 (80) 94 Room Air I & O 06/17/20 07:00 Intake Total 3750 ml Output Total 1575 ml Balance 2175 ml Height & Weight Height: 5'9.00" Weight: 139lbs. 0.0oz. 63.682529pj; 25.12 BMI Method:Stated General Appearance: Chronically ill, Other (lethargic ) HEENT: Moist Mucous Membranes, Other (only opened eyes briefly) Neck: Other (central line in place) Respiratory: No Accessory Muscle Use, Rhonci; No Wheezing Cardiovascular: Regular Rate, Rhythm, No Murmur Capillary Refill: Less Than 3 Seconds Peripheral Pulses: 2+ Radial Pulses (R), 2+ Radial Pulses (L) Gastrointestinal: non tender, soft Extremity: No Pedal Edema, Other (s/p lower extremity amputation on left) Neurologic/Psychiatric: Other (altered, sleeping, awakens to physical stimuli but only briefly with eye opening) Skin: Normal Color, Warm/Dry Results Lab Laboratory Tests 06/16/20 09:14 06/17/20 04:08 Assessment/Plan Assessment/Plan Pneumonia with sepsis -Cefepime, and vanco -Asencio cultures -IVF -COVID is negative -Check urine strep and legionella ag Anemia -Monitor UTI NSTEMI -Cardiology following CAD LARISSA CHASE DO Jun 17, 2020 06:18
[2020-06-17] MEDS ORDERED: ISOSORBIDE MONONITRATE 60 MG (IMDUR) TAB PO SCH (06:30)
[2020-06-17] MEDS: SILVASORB GEL 1.5 OZ TP SCH (08:04)
[2020-06-17] MEDS: PANTOPRAZOLE 40 MG (PROTONIX) VIAL IV SCH (08:04)
[2020-06-17] MEDS: CLOPIDOGREL 75 MG (PLAVIX) TABLET PO SCH (08:05)
[2020-06-17] MEDS: ASPIRIN 81 MG CHEW (CHILDREN'S ASA) PO SCH (08:05)
--- NOTE | 2020-06-17 08:24 | NUR ---
DR BILLINGS NOTIFIED OF PT BLOOD PRESSURE
[2020-06-17] MEDS ORDERED: NITROGLYCERIN 2% OINT 1 GM UNIT DOSE PACKET TOP PRN (09:00)
[2020-06-17] MEDS: amLODIPine 10 MG (NORVASC) TAB PO SCH (09:13)
[2020-06-17] MEDS: CARVEDILOL 12.5 MG (COREG) TABLET PO SCH ×2 (09:14→20:45)
--- NOTE | 2020-06-17 11:04 | Cardiology Progress Note ---
Subjective Date Seen by Provider: Jun 17, 2020 Time Seen by Provider: 11:02 Subjective/Events-last exam Patient is more awake today, oriented to person and place, disoriented to time, eating. No new complaint, denied any chest pain or shortness of breath Review of Systems General: No Chills, No Night Sweats; Fatigue; No Malaise, No Appetite, No Other HEENT: No Head Aches, No Visual Changes, No Eye Pain, No Ear Pain, No Dysphasia, No Sinus Congestion, No Post Nasal Drip, No Sore Throat, No Other Pulmonary: No Dyspnea, No Cough, No Pleuritic Chest Pain, No Other Cardiovascular: No: Chest Pain, Palpitations, Orthopnea, Paroxysmal Noc. Dyspnea, Edema, Lt Headedness, Other Focused Exam Lactate Level 06/16/20 09:14: Lactic Acid Level 0.80 06/16/20 13:27: Lactic Acid Level 0.81 Time of Focused Exam: 10:57 Objective-Cardiology Exam Last Set of Vital Signs Vital Signs 06/17/20 06/17/20 08:07 08:13 Temp 36.5 Pulse 82 Resp 20 B/P (MAP) 208/80 (122) Pulse Ox 100 O2 Delivery Nasal Cannula O2 Flow Rate 2.00 Capillary Refill : Less Than 3 Seconds I&O Intake and Output 06/16/20 23:59 Intake Total 3750 ml Output Total 975 ml Balance 2775 ml Intake Oral 0 ml IV Total 3750 ml Output Urine Total 975 ml Daily Weight Change Yes, 2-13 lbs General: Alert, Cooperative, No Acute Distress HEENT: Atraumatic, PERRLA Neck: Supple, No JVD, No Thyromegaly Lungs: Clear to Auscultation, Normal Air Movement Heart: Regular Rate, Normal S1, Normal S2, No Murmurs Abdomen: Normal Bowel Sounds, Soft, No Tenderness, No Hepatosplenomegaly, No Masses Extremities: No Clubbing, No Cyanosis, No Edema, Normal Pulses, No Tenderness/Swelling Skin: No Rashes, No Breakdown, No Significant Lesion Neuro: Normal Speech, Normal Tone, Sensation Intact Psych/Mental Status: Mood NL Results Lab Laboratory Tests 06/17/20 04:08 A/P-Cardiology Admission Diagnosis Non-ST elevation myocardial infarction Change in mental status Sepsis Urinary tract infection Assessment/Plan Non-ST elevation myocardial infarction, EKG did not show any acute changes, diffuse nonspecific T wave abnormality was noted, have significant elevation in troponin that is trending down. Patient has extensive coronary artery disease, known to have 2 stents to the right coronary artery in 2019 followed by stenting to the mid LAD in 2019 and received another stenting to the LAD proximally last week with Dr. Lomas. Has been maintained on dual antiplatelet therapy. Patient also has severe distal LAD stenosis and distal right coronary artery stenosis the artery is fairly small and not amendable to intervention. Elevated troponin could be due to sepsis in addition to significant coronary artery disease. No signs of acute stent thrombosis noted on EKG. Acute change in mental status, improving today, responding appropriately to questions. Probably the change of mental status was secondary to sepsis, managed by primary care team Pneumonia, Receiving antibiotics. Managed by primary care team Urinary tract infection, receiving antibiotics, managed by primary care team COVID rapid test is negative, repeat test is negative History of ischemic cardiomyopathy. Continue to monitor closely Hypertension, monitor blood pressure no changes Hyperlipidemia maintained on statin Diabetes mellitus. History of CVA. Continue to monitor Anemia, monitor H&H Duplicate note please discard Clinical Quality Measures DVT/VTE Risk/Contraindication: Risk Factor Score Per Nursin RFS Level Per Nursing on Admit: 4+=Very High REBECA HARDIN MD Jun 17, 2020 11:04 am
--- NOTE | 2020-06-17 11:05 | Cardiology Progress Note ---
Subjective Date Seen by Provider: Jun 17, 2020 Time Seen by Provider: 11:04 Subjective/Events-last exam Patient was seen at the side laying down comfortably, more awake, denied any chest pain or shortness of breath Review of Systems General: No Chills, No Night Sweats, No Fatigue, No Malaise, No Appetite, No Other HEENT: No Head Aches, No Visual Changes, No Eye Pain, No Ear Pain, No Dysphasia, No Sinus Congestion, No Post Nasal Drip, No Sore Throat, No Other Pulmonary: No Dyspnea, No Cough, No Pleuritic Chest Pain, No Other Cardiovascular: No: Chest Pain, Palpitations, Orthopnea, Paroxysmal Noc. Dyspnea, Edema, Lt Headedness, Other Focused Exam Lactate Level 06/16/20 09:14: Lactic Acid Level 0.80 06/16/20 13:27: Lactic Acid Level 0.81 Time of Focused Exam: 10:57 Objective-Cardiology Exam Last Set of Vital Signs Vital Signs 06/17/20 06/17/20 08:07 08:13 Temp 36.5 Pulse 82 Resp 20 B/P (MAP) 208/80 (122) Pulse Ox 100 O2 Delivery Nasal Cannula O2 Flow Rate 2.00 Capillary Refill : Less Than 3 Seconds I&O Intake and Output 06/17/20 00:00 Intake Total 3750 ml Output Total 975 ml Balance 2775 ml Intake Oral 0 ml IV Total 3750 ml Output Urine Total 975 ml Daily Weight Change Yes, 2-13 lbs General: Alert, Cooperative, No Acute Distress HEENT: Atraumatic, PERRLA Neck: Supple, No JVD, No Thyromegaly Lungs: Clear to Auscultation, Normal Air Movement Heart: Regular Rate, Normal S1, Normal S2, No Murmurs Abdomen: Normal Bowel Sounds, Soft, No Tenderness, No Hepatosplenomegaly, No Masses Extremities: No Clubbing, No Cyanosis, No Edema, Normal Pulses, No Tenderness/Swelling Skin: No Rashes, No Breakdown, No Significant Lesion Neuro: Normal Speech, Normal Tone, Sensation Intact Psych/Mental Status: Mood NL Results Lab Laboratory Tests 06/17/20 04:08 A/P-Cardiology Admission Diagnosis Non-ST elevation myocardial infarction Change in mental status Sepsis Urinary tract infection Assessment/Plan Non-ST elevation myocardial infarction, EKG did not show any acute changes, diffuse nonspecific T wave abnormality was noted, have significant elevation in troponin that is trending down. Patient has extensive coronary artery disease, known to have 2 stents to the right coronary artery in 2019 followed by stenting to the mid LAD in 2019 and received another stenting to the LAD proximally last week with Dr. Lomas. Has been maintained on dual antiplatelet therapy. Patient also has severe distal LAD stenosis and distal right coronary artery stenosis the artery is fairly small and not amendable to intervention. Elevated troponin could be due to sepsis in addition to significant coronary artery disease. No signs of acute stent thrombosis noted on EKG. Acute change in mental status, improving today, responding appropriately to questions. Probably the change of mental status was secondary to sepsis, managed by primary care team Pneumonia, Receiving antibiotics. Managed by primary care team Urinary tract infection, receiving antibiotics, managed by primary care team COVID rapid test is negative, repeat test is negative History of ischemic cardiomyopathy. Continue to monitor closely Hypertension, monitor blood pressure no changes Hyperlipidemia maintained on statin Diabetes mellitus. History of CVA. Continue to monitor Anemia, monitor H&H Clinical Quality Measures DVT/VTE Risk/Contraindication: Risk Factor Score Per Nursin RFS Level Per Nursing on Admit: 4+=Very High REBECA HARDIN MD Jun 17, 2020 11:05 am
[2020-06-17] MEDS: VANCOMYCIN 1 GM/NS 250 ML IVPB IV SCH ×2 (11:16)
--- NOTE | 2020-06-17 12:38 | Progress Note - Hospitalist ---
Subjective HPI/CC On Admission Date Seen by Provider: Jun 17, 2020 Time Seen by Provider: 12:35 patient is a 74-year-old Male with past history of CAD, PAD s/p L BKA, IDDMII who presented to the ER due to altered mental status. He was discharged from here on Saturday following and NSTEMI with stent placement. He is quite sleepy and does not answer questions, which is markedly different than how he was Saturday. His provides the history. She states he has done well since discharge until today. Yesterday she noticed a loose cough and thought he had a low grade fever but that mentally he was him normal self and making jokes. Today his mentation worsened prompting her to call EMS and bring him here for evaluation. He was found to have bilateral pneumonia and UTI consistent with sepsis. Troponin was also elevated at 2.4 up considerably from last week at 0.063. reports he has been complaint with his DAPT Subjective/Events-last exam Pt is much more alert today. Not talking much but awake. at bedside. She states that he had a choking episode on some sputum but is doing better now since he was suctioned. Focused Exam Lactate Level 06/16/20 09:14: Lactic Acid Level 0.80 06/16/20 13:27: Lactic Acid Level 0.81 Time of Focused Exam: 10:57 Objective Exam Vital Signs Vital Signs Date Time Temp Pulse Resp B/P (MAP) Pulse Ox O2 Delivery O2 Flow Rate FiO2 06/17/20 12:00 37.2 84 21 193/80 (117) 100 Nasal Cannula 2.00 Capillary Refill : Less Than 3 Seconds General Appearance: No Apparent Distress, Chronically ill, Thin Respiratory: Lungs Clear, No Respiratory Distress Cardiovascular: Regular Rate, Rhythm, No Murmur Extremity: Other (s/p left BKA) Neurologic/Psychiatric: Alert, Other Results/Procedures Lab Laboratory Tests 06/17/20 04:08 Patient resulted labs reviewed. Imaging: Reviewed Imaging Report Assessment/Plan Assessment and Plan Assess & Plan/Chief Complaint Sepsis UTI PNA Continue on IV abx Await cultures, [employer] in urine right now COVID negative Previously has grown Morganella morganni sensitive to rocephin NSTEMI CAD PAD HTN Cardiology consulted Troponin now trending down Continue Lovenox, ASA, Plavix BP very high today, will resume home meds IDDMII SSI with accuchecks DVt ppx: Lovenox Diagnosis/Problems Diagnosis/Problems (1) PNA (pneumonia) Qualifiers: Pneumonia type: due to unspecified organism Laterality: bilateral Lung location: unspecified part of lung Qualified Codes: J18.9 - Pneumonia, unspecified organism (2) BPH (benign prostatic hyperplasia) Status: Chronic Qualifiers: Lower urinary tract symptom presence: unspecified whether lower urinary tract symptoms present Qualified Codes: N40.0 - Benign prostatic hyperplasia without lower urinary tract symptoms (3) HLD (hyperlipidemia) Status: Chronic Qualifiers: Hyperlipidemia type: unspecified Qualified Codes: E78.5 - Hyperlipidemia, unspecified (4) HTN (hypertension) Status: Acute (5) Status post coronary artery stent placement Status: Acute (6) S/P AKA (above knee amputation) unilateral Status: Chronic (7) UTI (urinary tract infection) Qualifiers: Urinary tract infection type: acute cystitis Hematuria presence: without hematuria Qualified Codes: N30.00 - Acute cystitis without hematuria (8) Sepsis Qualifiers: Sepsis type: sepsis due to unspecified organism Sepsis acute organ dysfunction status: with acute organ dysfunction Severe sepsis acute organ dysfunction type: encephalopathy Severe sepsis shock status: without septic shock Qualified Codes: A41.9 - Sepsis, unspecified organism; R65.20 - Severe sepsis without septic shock; G93.40 - Encephalopathy, unspecified (9) Elevated troponin I level Status: Acute (10) CAD (coronary artery disease) Status: Chronic Qualifiers: Coronary Disease-Associated Artery/Lesion type: [place] artery [place] vs. transplanted heart: [place] heart Associated angina: without angina Qualified Codes: I25.10 - Atherosclerotic heart disease of [place] coronary artery without angina pectoris (11) Non-STEMI (non-ST elevated myocardial infarction) Status: Acute (12) IDDM (insulin dependent diabetes mellitus) Status: Chronic Clinical Quality Measures DVT/VTE Risk/Contraindication: Risk Factor Score Per Nursin RFS Level Per Nursing on Admit: 4+=Very High HAWA BILLINGS MD Jun 17, 2020 12:38
[2020-06-17] MEDS ORDERED: ISOSORBIDE MONONITRATE 60 MG (IMDUR) TAB PO NR (12:45)
[2020-06-17] MEDS ORDERED: AMLO5TAB9 PO (13:02)
[2020-06-17] MEDS ORDERED: ASPI-999 PO (13:02)
--- NOTE | 2020-06-17 13:04 | NUR ---
I SPOKE WITH THE PTS (MACHO) AND WENT THRU THE EXT MED HISTORY TO COMPLETE THE MED REC PT WAS HERE LAST WEEK AND I COMPLETED THE MED REC ON 06-10-2020- AT THAT TIME WHEN I SPOKE WITH MACHO SHE LET ME KNOW THE PT HAD JUST BEEN DISCHARGED HOME FROM [facility] AND SHE WAS USING MEDICATIONS THEY SENT HOME WITH HIM WELL A DISCHARGE MED LIST THAT SHE PROVIDED ME. WHEN I SPOKE WITH MACHO WE WENT THRU THE MEDICATIONS AGAIN AND SHE CONFIRMED THE PT HAD STARTED TAKING AMLODIPINE 5MG AND ASPIRIN 81MG WHICH WERE NEW MEDICATIONS AT DISCHARGE ON 06-12-2020
--- NOTE | 2020-06-17 14:00 | NUR ---
received report from ernestina rm. this rn to assume care of pt for remainder of shift.
--- NOTE | 2020-06-17 14:31 | ST Dysphagia Evaluation ---
Speech Evaluation-General Medical Diagnosis Pneumonia Onset Date: Jun 17, 2020 Therapy Diagnosis Therapy Diagnosis: Oropharyngeal Dysphagia Precautions Precautions: Aspiration Referral Referring Physician: Dr. Snow Medical History Pertinent Medical History: Arthritis, CAD, DM, HTN, Neuropathy, PVD Speech PLF/Current-Dysphagia Prior Level of Function Patient was recently hospitalized for other medical problems. After returning home he was reported to worsen by the day and was brought back in by his . Patient was found to have pneumonia. Subjective Patient was cooperative with the Bedside Dysphagia Evaluation. Oral Motor Skills Dentition: Edentalous Ability to Follow Directions: Fair Oral Expression Ability: Moderate Impairment Voice Voice Phonatory-Based Quality: Weak Voice Pitch: Normal Voice Loudness: Mildly Soft/Quiet Face Facial Symmetry: Symmetrical Oral-Facial Assessment Oral-Facial Dentition: Underbite Labial Seal Description: Reduced ROM Smile: Reduced ROM Lingual Protrusion: Abnormal Decreased ROM Lingual ROM: Abnormal Lingual Strength: Abnormal Weak for mastication Pharynx Velopharyngeal Move.: Normal Volitional Dry Swallow: Yes Dysphagia Evaluation Consistencies Presented: Thin Liquid, Mechanical Soft, Pureed Oral phase within normal range of function for thin and puree. Mechanical soft noted for poor bolus management. Pharyngeal phase within normal range of function for thin and puree. Mechanical soft noted for poor clearing. Dietary Recommendations: Pureed Liquid Recommendations: Thin Swallowing Precautions: Alternate Liquids/Solids, Decreased Bolus 1/2 Tsp, Liquids from Straw, Small Bites and Sips, Sitting Upright 90 Degrees, Sitting 90 Degrees 30 Post Intake Dysphagia Evaluation Summary Patient is a 74 y/o male who was readmitted to the hospital following recent sta y on 06/07/2020. Patient was admitted due to pneumonia with BDE ordered by physician. BDE was completed with presentations of thin, puree and mechanical soft. Patient demo good intake with thin via straw and puree at 1/2 tsp. Patient's intake of mechanical soft was noted with difficulty of bolus management and swallow clearing. Patient was observed with pills taken one at a time and a sip of water without difficulty. Diet level is recommended at Dysphagia I with thin liquids. This information was given to the nurse with orders placed. Speech-Plan Patient/Family Goals Patient/Family Goals: Patient is presumed to be returning to his home upon discharge. Treatment Plan Speech Therapy Treatment Plan: Discontinue ST Treatment Duration: Jun 17, 2020 Frequency: 1 time per week Estimated Hrs Per Day: .25 hour per day Rehab Potential: Fair Barriers to Learning: Patient's medical status, age Pt/Family Agrees to Plan: Yes Safety Risks/Education Teaching Recipient: Patient Teaching Methods: Demonstration, Discussion Response to Teaching: Verbalize Understanding, Return Demonstration Education Topics Provided: Safety of oral intake, diet level Time Speech Therapy Time In: 08:30 Speech Therapy Time Out: 08:55 Total Billed Time: 25 Billed Treatment Time 1, GILSON, DYST KALA Schwartz Jun 17, 2020 14:31
--- NOTE | 2020-06-17 15:29 | NUR ---
CM/SS: Visited with pt and spouse as to plan for discharge Plan: Pt will discharge back to home when appropriate with Home Community Based Service Hours (56 total) to assist in his care Summary: Spouse is at the bedside and reports that pt has been at home since the 07 of June, from being at [facility]. She reports that pt had a heart attack, and that he had to have a stint and he went home and had to return due to not feeling as well. Spouse reports he has pneumonia. She reports that pt has 56 hours for home and community based service. She reports she is still getting used to things and getting in a routine for pt. This worker will follow up with pt and spouse on Saturday and determine if there are other services needed at the time of discharge.
--- NOTE | 2020-06-17 15:53 | NUR ---
BP CONTINUES TO BE ELEVATED, DR BILLINGS INFORMED. NEW ORDERS RECEIVED TO INCREASE NITRO PASTE ORDER TO [facility] AND TO APPLY NOW.
[2020-06-17] MEDS: NITROGLYCERIN 2% OINT 1 GM UNIT DOSE PACKET TOP PRN (15:58)
[2020-06-17] MEDS ORDERED: ENOXAPARIN 40 MG/0.4 ML (LOVENOX) SYR SC SCH (21:00)
[2020-06-18 00:43] VITALS: BP 198/88
[2020-06-18] MEDS: morphine INJ 4 MG/ML 1 ML (VIAL/SYRINGE) IV PRN ×2 (01:00→03:12)
[2020-06-18 03:10] VITALS: BP 187/84
[2020-06-18] MEDS: NITROGLYCERIN 2% OINT 1 GM UNIT DOSE PACKET TOP PRN (03:12)
[2020-06-18] MEDS: CEFEPIME 1,000 MG/SWFI 10 ML IV PUSH IV SCH ×4 (03:25→11:33)
[2020-06-18 03:37] LABS: BASOPHILS % (AUTO) 0 % (0-10); EOSINOPHILS # (AUTO) 0.1 10^3/uL (0.0-0.3); EOSINOPHILS % (AUTO) 2 % (0-10); HEMATOCRIT 28 % (40-54); HEMOGLOBIN 9.1 G/DL (13.3-17.7); LYMPHOCYTES # (AUTO) 0.7 X 10^3 (1.0-4.0); LYMPHOCYTES % (AUTO) 12 % (12-44); MEAN CORPUSCULAR HEMOGLOBIN 28 PG (25-34); MEAN CORPUSCULAR HGB CONC 33 G/DL (32-36); MEAN CORPUSCULAR VOLUME 87 FL (80-99); MEAN PLATELET VOLUME 10.5 FL (7.4-10.4); MONOCYTES # (AUTO) 0.7 X 10^3 (0.0-1.0); MONOCYTES % (AUTO) 12 % (0-12); NEUTROPHILS # (AUTO) 4.5 X 10^3 (1.8-7.8); NEUTROPHILS % (AUTO) 75 % (42-75); PLATELET COUNT 227 10^3/uL (130-400)
[2020-06-18 03:53] LABS: ALBUMIN 2.8 GM/DL (3.2-4.5); CHLORIDE 107 MMOL/L (98-107); POTASSIUM 3.3 MMOL/L (3.6-5.0); SODIUM 139 MMOL/L (135-145)
[2020-06-18 03:54] LABS: CALCIUM 8.6 MG/DL (8.5-10.1)
[2020-06-18 03:56] LABS: GLUCOSE 74 MG/DL (70-105); TOTAL PROTEIN 5.9 GM/DL (6.4-8.2)
[2020-06-18 03:57] LABS: BILIRUBIN,TOTAL 0.4 MG/DL (0.1-1.0); CARBON DIOXIDE 21 MMOL/L (21-32)
[2020-06-18 03:59] LABS: ALKALINE PHOSPHATASE 59 U/L (40-136); CREATININE SERUM 0.65 MG/DL (0.60-1.30); GFR ESTIMATED > 60
[2020-06-18 04:00] LABS: BUN/CREATININE RATIO 18
[2020-06-18 04:02] LABS: ALANINE AMINOTRANSFERASE 10 U/L (0-55)
[2020-06-18] MEDS: NS IV 1000 ML 1,000 ML IV SCH ×2 (04:59→11:36)
[2020-06-18] MEDS: inSUlin ASPART (NovoLOG) 1 UNIT/0.01 ML (CHARGE PER UNIT) SC SCH ×2 (06:45→11:36)
[2020-06-18] MEDS ORDERED: ISOSORBIDE MONONITRATE 60 MG (IMDUR) TAB PO SCH (09:00)
[2020-06-18] MEDS: CARVEDILOL 12.5 MG (COREG) TABLET PO SCH (09:03)
[2020-06-18] MEDS: CLOPIDOGREL 75 MG (PLAVIX) TABLET PO SCH (09:03)
[2020-06-18] MEDS: amLODIPine 10 MG (NORVASC) TAB PO SCH (09:03)
[2020-06-18] MEDS: ASPIRIN 81 MG CHEW (CHILDREN'S ASA) PO SCH (09:03)
[2020-06-18] MEDS: SILVASORB GEL 1.5 OZ TP SCH (09:03)
[2020-06-18 09:06] VITALS: BP 191/86
[2020-06-18] MEDS: PANTOPRAZOLE 40 MG (PROTONIX) VIAL IV SCH (09:15)
[2020-06-18] MEDS ORDERED: cloNIDine 0.1 MG (CATAPRES) TAB PO SCH (10:15)
--- NOTE | 2020-06-18 10:26 | NUR ---
THIS NURSE SPOKE WITH DR HARDIN. DR HARDIN IS OKAY WITH PT GOING TO [facility]. PT STARTED ON CLONIDINE. THIS NURSE NOTIFIED DR BILLINGS THAT DR HARDIN IS OKAY WITH PT TRANSFERRING TO [facility] AND PT IS STARTED ON CLONIDINE. NO NEW ORDERS AT THIS TIME.
--- NOTE | 2020-06-18 10:58 | Discharge Summary ---
Diagnosis/Chief Complaint Date of Admission Jun 16, 2020 at 11:00 Date of Discharge Discharge Date: Jun 18, 2020 Admission Diagnosis Sepsis Primary Care Terri Tavarez DO Discharge Diagnosis (1) PNA (pneumonia) (2) BPH (benign prostatic hyperplasia) Status: Chronic (3) HLD (hyperlipidemia) Status: Chronic (4) HTN (hypertension) Status: Acute (5) Status post coronary artery stent placement Status: Acute (6) S/P AKA (above knee amputation) unilateral Status: Chronic (7) UTI (urinary tract infection) (8) Sepsis (9) Elevated troponin I level Status: Acute (10) CAD (coronary artery disease) Status: Chronic (11) Non-STEMI (non-ST elevated myocardial infarction) Status: Acute (12) IDDM (insulin dependent diabetes mellitus) Status: Chronic Discharge Summary Procedures/Consulations Dr. Grantcardiology Dr Murray Boone Discharge Physical Exam Allergies: Coded Allergies: Sulfa (Sulfonamide Antibiotics) (Verified Allergy, Severe, HIVES, 07/19/19) temazepam (Verified Allergy, Severe, 07/19/19) MENTAL CONFUSION hydromorphone (Verified Allergy, Unknown, 07/19/19) zolpidem (Verified Allergy, Unknown, 06/09/20) pravastatin (Verified Adverse Reaction, Severe, RASH, 07/19/19) Vitals & I&Os Vital Signs Date Time Temp Pulse Resp B/P (MAP) Pulse Ox O2 Delivery O2 Flow Rate FiO2 06/18/20 09:06 78 191/86 (121) 100 Nasal Cannula 2.00 06/18/20 03:10 37.0 24 General Appearance: No Apparent Distress, Chronically ill, Thin Respiratory: Lungs Clear, No Respiratory Distress Cardiovascular: Regular Rate, Rhythm Neurologic/Psychiatric: Alert Hospital Course patient was admitted secondary to severe sepsis due to urinary tract infection. He was started on IV anabiotic's and did well. His troponin was 2.4 on arrival and cardiology was consulted for this. It was deemed secondary to a type II [place] and ultimately was trending down. He did just have a stent last week and his antiplatelets therapy was continued. He continued to improve. Due to increasing COVID patient's and nearing capacity at this hospital I discussed with his regarding transfer to [facility] for continued care. She was agreeable to this. discussed the case with Dr. Saleem who graciously accepted the patient in transfer. Labs (last 24 hrs) Laboratory Tests 06/17/20 15:33: Glucometer 76 06/17/20 20:50: Glucometer 96 06/18/20 03:22: White Blood Count 6.0, Red Blood Count 3.22L, Hemoglobin 9.1L, Hematocrit 28L, Mean Corpuscular Volume 87, Mean Corpuscular Hemoglobin 28, Mean Corpuscular Hemoglobin Concent 33, Red Cell Distribution Width 13.7, Platelet Count 227, Mean Platelet Volume 10.5H, Neutrophils (%) (Auto) 75, Lymphocytes (%) (Auto) 12, Monocytes (%) (Auto) 12, Eosinophils (%) (Auto) 2, Basophils (%) (Auto) 0, Neutrophils # (Auto) 4.5, Lymphocytes # (Auto) 0.7L, Monocytes # (Auto) 0.7, Eosinophils # (Auto) 0.1, Basophils # (Auto) 0.0, Sodium Level 139, Potassium Level 3.3L, Chloride Level 107, Carbon Dioxide Level 21, Anion Gap 11, Blood Urea Nitrogen 12, Creatinine 0.65, Estimat Glomerular Filtration Rate > 60, BUN/Creatinine Ratio 18, Glucose Level 74, Calcium Level 8.6, Corrected Calcium 9.6, Total Bilirubin 0.4, Aspartate Amino Transf (AST/SGOT) 19, Alanine Aminotransferase (ALT/SGPT) 10, Alkaline Phosphatase 59, Total Protein 5.9L, Albumin 2.8L Microbiology 06/16/20 Blood Culture - Preliminary, Resulted No growth 06/16/20 Influenza Types A,B Antigen (SOILA) - Final, Complete 06/16/20 Urine Culture - Final, Complete Staphylococcus epidermidis Patient resulted labs reviewed. Pending Labs Imaging: Reviewed Imaging Report Discussion & Recommendations Discharge Planning: >30 minutes discharge planning Discharge Home Medications: Active Scripts Active Reported Aspirin 81 Mg Tab.chew 81 Mg PO 0900 Amlodipine Besylate 5 Mg Tablet 5 Mg PO DAILY Bisacodyl 10 Mg Supp.rect 10 Mg RC DAILY PRN Furosemide 40 Mg Tablet 40 Mg PO DAILY Lactulose 10 Gm/15 Ml Solution 15 Ml PO DAILY Biofreeze (Menthol) 118 Ml Gel..ml. 1 Applic TP QID PRN Flomax (Tamsulosin HCl) 0.4 Mg Cap 0.4 Mg PO DAILY Tylenol (Acetaminophen) 325 Mg Capsule 650 Mg PO Q6H PRN Neurontin (Gabapentin) 300 Mg Capsule 300 Mg PO DAILY TAKES 300MG +600MG AT THE SAME TIME DAILY Pyridium (Phenazopyridine HCl) 200 Mg Tablet 200 Mg PO TID PRN Fleet Enema (Na Phos,M-B/Na Phos,Di-Ba) 133 Ml Enema 133 Ml RC DAILY PRN Isosorbide Mononitrate ER (Isosorbide Mononitrate) 60 Mg Tab 90 Mg PO DAILY TAKES 1 & 1/2 (60MG) TABLET Ondansetron Odt (Ondansetron) 8 Mg Tab.rapdis 8 Mg PO TID Clopidogrel (Clopidogrel Bisulfate) 75 Mg Tablet 75 Mg PO DAILY Potassium Chloride 10 Meq Tab.er.prt 10 Meq PO DAILY Androgel (Testosterone) 75 Gm Gel..pre billing clinician 2 Pump TD DAILY Glipizide 5 Mg Tablet 5 Mg PO DAILY Terazosin HCl 1 Mg Capsule 1 Mg PO BID Darcie-[place] Liquid (Mag Hydrox/Al Hydrox/Simeth) Unknown Strength Oral.susp 30 Ml PO Q4H PRN HYDROcodone/APAP 7.5/325 TAB (Acetaminophen/Hydrocodone Bitart) 1 Each Tablet 1 Tab PO TID PRN Carvedilol 25 Mg Tablet 25 Mg PO BID NOTIFY MD IF SBP<90 OR >200 OR PULSE <50 Hydralazine HCl 100 Mg Tablet 100 Mg PO QID HOLD AND NOTIFY MED FOR SBP<110 Pantoprazole Sodium 20 Mg Tablet.dr 20 Mg PO DAILY Gabapentin 600 Mg Tablet 600 Mg PO 0800,2200 TAKES 300MG +600MG AT THE SAME TIME DAILY AND 600MG AT BEDTIME Miralax (Polyethylene Glycol 3350) 17 Gm Powd.pack 17 Gm PO DAILY Trazodone HCl 50 Mg Tablet 50 Mg PO HS Milk of Magnesia (Magnesium Hydroxide) 400 Mg/5 Ml Oral.susp 30 Ml PO DAILY PRN Toujeo Solostar (Insulin Glargine,Hum.rec.anlog) 300 Unit/1 Ml Insuln.pen 6 Unit SQ DAILY Magnesium Citrate 296 Ml Solution 296 Ml PO EVERY 4 DAYS PRN 1 BOTTLE EVERY 4 DAYS, IF NO BOWEL MOVEMENT, NEEDED FOR CONSTIPATION Lipitor (Atorvastatin Calcium) 10 Mg Tablet 10 Mg PO HS [place] 7.5-325 Tablet (Hydrocodone/Acetaminophen) 1 Each Tablet 1 Tab PO HS Baclofen 10 Mg Tablet 10 Mg PO Q8H PRN Colace (Docusate Sodium) 100 Mg Capsule 300 Mg PO HS TAKES 3 (100MG) CAPSULES Finasteride 5 Mg Tablet 5 Mg PO HS Instructions to patient/family Please see electronic discharge instructions given to patient. Clinical Quality Measures DVT/VTE Risk/Contraindication: Risk Factor Score Per Nursin RFS Level Per Nursing on Admit: 4+=Very High Copy Copies To 1: TERRI TAVAREZ DO Problem Qualifiers (1) PNA (pneumonia): Pneumonia type: due to unspecified organism Laterality: bilateral Lung location: unspecified part of lung Qualified Codes: J18.9 - Pneumonia, unspecified organism (2) BPH (benign prostatic hyperplasia): Lower urinary tract symptom presence: unspecified whether lower urinary tract symptoms present Qualified Codes: N40.0 - Benign prostatic hyperplasia without lower urinary tract symptoms (3) HLD (hyperlipidemia): Hyperlipidemia type: unspecified Qualified Codes: E78.5 - Hyperlipidemia, unspecified (4) UTI (urinary tract infection): Urinary tract infection type: acute cystitis Hematuria presence: without hematuria Qualified Codes: N30.00 - Acute cystitis without hematuria (5) Sepsis: Sepsis type: sepsis due to unspecified organism Sepsis acute organ dysfunction status: with acute organ dysfunction Severe sepsis acute organ dysfunction type: encephalopathy Severe sepsis shock status: without septic shock Qualified Codes: A41.9 - Sepsis, unspecified organism; R65.20 - Severe sepsis without septic shock; G93.40 - Encephalopathy, unspecified (6) CAD (coronary artery disease): Coronary Disease-Associated Artery/Lesion type: [place] artery [place] vs. transplanted heart: [place] heart Associated angina: without angina Qualified Codes: I25.10 - Atherosclerotic heart disease of [place] coronary artery without angina pectoris HAWA BILLINGS MD Jun 18, 2020 10:58
[2020-06-18 11:40] VITALS: BP 167/73
--- NOTE | 2020-06-18 11:51 | Cardiology Progress Note ---
Subjective Date Seen by Provider: Jun 18, 2020 Time Seen by Provider: 11:50 Subjective/Events-last exam Patient is sitting in bed, no new complaint. No chest pain. Review of Systems General: No Chills, No Night Sweats, No Fatigue, No Malaise, No Appetite, No Other HEENT: No Head Aches, No Visual Changes, No Eye Pain, No Ear Pain, No Dysphasia, No Sinus Congestion, No Post Nasal Drip, No Sore Throat, No Other Pulmonary: No Dyspnea, No Cough, No Pleuritic Chest Pain, No Other Cardiovascular: No: Chest Pain, Palpitations, Orthopnea, Paroxysmal Noc. Dyspnea, Edema, Lt Headedness, Other Focused Exam Lactate Level 06/16/20 09:14: Lactic Acid Level 0.80 06/16/20 13:27: Lactic Acid Level 0.81 Time of Focused Exam: 10:57 Objective-Cardiology Exam Last Set of Vital Signs Vital Signs 06/18/20 11:40 Temp 36.1 Pulse 72 Resp 20 B/P (MAP) 167/73 (104) Pulse Ox 100 O2 Delivery Nasal Cannula O2 Flow Rate 2.00 Capillary Refill : Less Than 3 Seconds I&O Intake and Output 06/18/20 00:00 Intake Total 2680 ml Output Total 4325 ml Balance -1645 ml Intake Oral 410 ml IV Total 2270 ml Output Urine Total 4325 ml General: Alert, Cooperative, No Acute Distress HEENT: Atraumatic, PERRLA Neck: Supple, No JVD, No Thyromegaly Lungs: Clear to Auscultation, Normal Air Movement Heart: Regular Rate, Normal S1, Normal S2, No Murmurs Abdomen: Normal Bowel Sounds, Soft, No Tenderness, No Hepatosplenomegaly, No Masses Extremities: No Clubbing, No Cyanosis, No Edema, Normal Pulses, No Tenderness/Swelling Skin: No Rashes, No Breakdown, No Significant Lesion Neuro: Normal Speech, Normal Tone, Sensation Intact Psych/Mental Status: Mood NL Results Lab Laboratory Tests 06/18/20 03:22 A/P-Cardiology Admission Diagnosis Non-ST elevation myocardial infarction Change in mental status Sepsis Urinary tract infection Assessment/Plan Non-ST elevation myocardial infarction, EKG did not show any acute changes, diffuse nonspecific T wave abnormality was noted, have significant elevation in troponin that is trending down. Patient has extensive coronary artery disease, known to have 2 stents to the right coronary artery in 2019 followed by stenting to the mid LAD in 2019 and received another stenting to the LAD proximally last week with Dr. Lomas. Has been maintained on dual antiplatelet therapy. Patient also has severe distal LAD stenosis and distal right coronary artery stenosis the artery is fairly small and not amendable to intervention. Elevated troponin could be due to sepsis in addition to significant coronary artery disease. No signs of acute stent thrombosis noted on EKG. Continue with conservative management Acute change in mental status, daily improvement. Feeling better today. Continue to monitor Pneumonia, Receiving antibiotics. Managed by primary care team Urinary tract infection, receiving antibiotics, managed by primary care team COVID rapid test is negative, repeat test is negative History of ischemic cardiomyopathy. Continue to monitor closely Hypertension, monitor blood pressure no changes Hyperlipidemia maintained on statin Diabetes mellitus. History of CVA. Continue to monitor Anemia, monitor H&H Clinical Quality Measures DVT/VTE Risk/Contraindication: Risk Factor Score Per Nursin RFS Level Per Nursing on Admit: 4+=Very High REBECA HARDIN MD Jun 18, 2020 11:51
[2020-06-18] MEDS: VANCOMYCIN 1 GM/NS 250 ML IVPB IV SCH ×2 (12:16)
--- NOTE | 2020-06-18 14:23 | NUR ---
THIS NURSE CALLED REPORT TO PABLO DANIELLE AT [facility]. FACE SHEET FAXED OVER.
[2020-06-18 14:54] VITALS: BP 149/66
[2020-06-18 15:23] VITALS: BP 149/66
== END 2020-06-18 15:23 | disposition critical access hospital (66) | DRG 871 ==
LOC: EDUNIT# 08:33 → ER 08:35 → CSD 11:00
PROVIDERS: ADMIT Family Medicine; ATTEND Family Medicine
DX: A41.9 Sepsis, unspecified organism (principal); J18.9 Pneumonia, unspecified organism; I21.A1 Myocardial infarction type 2; J96.01 Acute respiratory failure with hypoxia; J96.02 Acute respiratory failure with hypercapnia; I21.4 Non-ST elevation (NSTEMI) myocardial infarction; N39.0 Urinary tract infection, site not specified; Z66 Do not resuscitate; I25.10 Atherosclerotic heart disease of native coronary artery without angina pectoris; I11.0 Hypertensive heart disease with heart failure; I50.9 Heart failure, unspecified; E11.40 Type 2 diabetes mellitus with diabetic neuropathy, unspecified; R41.0 Disorientation, unspecified; I25.5 Ischemic cardiomyopathy; N40.0 Benign prostatic hyperplasia without lower urinary tract symptoms; E78.5 Hyperlipidemia, unspecified; E78.00 Pure hypercholesterolemia, unspecified; F41.9 Anxiety disorder, unspecified; F32.9 Major depressive disorder, single episode, unspecified; G47.30 Sleep apnea, unspecified; Z95.5 Presence of coronary angioplasty implant and graft; Z79.4 Long term (current) use of insulin; Z20.828 Contact with and (suspected) exposure to other viral communicable diseases; Z87.891 Personal history of nicotine dependence; Z87.01 Personal history of pneumonia (recurrent); Z86.73 Personal history of transient ischemic attack (TIA), and cerebral infarction without residual deficits; Z89.612 Acquired absence of left leg above knee; Z90.79 Acquired absence of other genital organ(s)
CPT/HCPCS: 36415; 36556; 51702; 71045; 80053; 81000; 82805; 82962; 83605; 83880; 84145; 84484; 85007; 85025; 85027; 85379; 85610; 85730; 86141; 87040; 87077; 87088; 87186; 87449; 87635; 87804; 87899; 93005; 94799; 99291

== ENCOUNTER 2020-06-28 01:12 | Inpatient (IN) | payer MEDICARE, MEDICAID ==
[2020-06-28] VITALS (7 sets, daily range): BP systolic 142–198; BP diastolic 67–89
[~2020-06-28] VITALS: Ht 172 cm; Wt 65.3 kg
[~2020-06-28 01:12] MED LIST changes: +PANT20TA18 PO; -PANT20TA3 PO
[2020-06-28] MEDS ORDERED: methylPREDNISolone 125 MG (Solu-MEDROL) VIAL IV STA (01:27)
[2020-06-28 01:40] LABS: BASOPHILS % (AUTO) 0 % (0-10); EOSINOPHILS # (AUTO) 0.2 10^3/uL (0.0-0.3); EOSINOPHILS % (AUTO) 2 % (0-10); HEMATOCRIT 33 % (40-54); HEMOGLOBIN 10.3 G/DL (13.3-17.7); LYMPHOCYTES # (AUTO) 0.9 X 10^3 (1.0-4.0); LYMPHOCYTES % (AUTO) 12 % (12-44); MEAN CORPUSCULAR HEMOGLOBIN 28 PG (25-34); MEAN CORPUSCULAR HGB CONC 32 G/DL (32-36); MEAN CORPUSCULAR VOLUME 88 FL (80-99); MEAN PLATELET VOLUME 9.9 FL (7.4-10.4); MONOCYTES # (AUTO) 0.6 X 10^3 (0.0-1.0); MONOCYTES % (AUTO) 7 % (0-12); NEUTROPHILS # (AUTO) 6.1 X 10^3 (1.8-7.8); NEUTROPHILS % (AUTO) 78 % (42-75); PLATELET COUNT 312 10^3/uL (130-400); WHITE BLOOD COUNT 7.8 10^3/uL (4.3-11.0)
[2020-06-28 01:53] LABS: ALBUMIN 3.8 GM/DL (3.2-4.5); POTASSIUM 4.7 MMOL/L (3.6-5.0)
[2020-06-28 01:54] LABS: CALCIUM 9.9 MG/DL (8.5-10.1); PROTHROMBIN TIME PATIENT 13.5 SEC (12.2-14.7)
[2020-06-28 01:55] LABS: TOTAL PROTEIN 7.5 GM/DL (6.4-8.2)
[2020-06-28 01:57] LABS: BILIRUBIN,TOTAL 0.4 MG/DL (0.1-1.0)
[2020-06-28 01:59] LABS: CREATININE SERUM 1.61 MG/DL (0.60-1.30)
[2020-06-28 02:01] LABS: MAGNESIUM 2.3 MG/DL (1.6-2.4)
[2020-06-28 02:03] LABS: ERYTHROCYTE SEDIMENTATION RATE 53 MM/HR (0-30)
--- NOTE | 2020-06-28 02:08 | ED General ---
General Chief Complaint: Respiratory Problems Stated Complaint: AMS Nursing Triage Note: ARRIVES VIA EMS TO ROOM 10, RECENTLY DISCHARGED FROM HOSPITAL NOT IMPROVING MUCH SINCE DISCHARGE PER .NOT USING OXYGEN AT HOME HOWEVER REQUIRING IT AT THIS TIME. PATIENT REPORTS PATIENT GAGING ON MUCUS IN HIS THROAT HE IS UNABLE TO CLEAR. PATIENT IS LETHARGIC AND PALE. Nursing Sepsis Screen: No Definite Risk Source of Information: EMS, Old Records Exam Limitations: Other (PT NOT TALKING OR FOLLOWING COMMANDS ON ARRIVAL--ALL INFORMATION IS FROM OLD RECORDS AND EMS REPORT) History of Present Illness Date Seen by Provider: Jun 28, 2020 Time Seen by Provider: 01:15 Initial Comments PT ARRIVES VIA EMS FROM HOME EMS WAS CALLED FOR PT WITH ALTERED MENTAL STATUS, INCREASED COUGH AND CHEST CONGESTION--GAGGING ON HIS SECRETIONS AND IS UNABLE TO CLEAR THEM NO REPORTED FEVER PT VERY LETHARGIC PT HAD NOT REQUIRED HOME OXYGEN, BUT IS REQUIRING OXYGEN NOW--O2 SATS IN UPPER 90'S ON O2 A 3 1/2 L/NC AT THIS TIME NO OTHER INFORMATION IS OBTAINABLE AT THIS TIME PT ADMITTED 06/09-06/12 FOR NSTEMI, HAD CARDIAC CATH AND STENT X 2 TO LAD. PREVIOUSLY HAS HAD STENTS X 2 TO RCA PT ADMITTED AGAIN 06/16-06/19 FOR SEPSIS, UTI, PNEUMONIA, ACUTE RESPIRATORY FAILURE, NSTEMI, HTN. PT HAD BEEN AT [facility] FOR THE PREVIOUS 10 MONTHS, THEN WAS MOVED BACK HOME 06/07/20, WITH [facility] 56 HOURS/WEEK PT IS DNR/DNI PCP: DR. TAVAREZ WORKFORCE CONSULTANT: DR. CHILDRESS Allergies and Home Medications Allergies Coded Allergies: Sulfa (Sulfonamide Antibiotics) (Verified Allergy, Severe, HIVES, 06/28/20) temazepam (Verified Allergy, Severe, 06/28/20) MENTAL CONFUSION hydromorphone (Verified Allergy, Unknown, 06/28/20) zolpidem (Verified Allergy, Unknown, 06/28/20) pravastatin (Verified Adverse Reaction, Severe, RASH, 06/28/20) Home Medications Acetaminophen 325 Mg Capsule, 650 MG PO Q6H PRN for PAIN-MILD (1-4), (Reported) Amlodipine Besylate 5 Mg Tablet, 5 MG PO DAILY, (Reported) Aspirin 81 Mg Tab.chew, 81 MG PO 0900, (Reported) Atorvastatin Calcium 10 Mg Tablet, 10 MG PO HS, (Reported) Baclofen 10 Mg Tablet, 10 MG PO Q8H PRN for MUSCLE SPASMS, (Reported) Bisacodyl 10 Mg Supp.rect, 10 MG RC DAILY PRN for CONSTIPATION-4TH LINE, (Reported) Carvedilol 25 Mg Tablet, 25 MG PO BID, (Reported) NOTIFY MD IF SBP<90 OR >200 OR PULSE <50 Clopidogrel Bisulfate 75 Mg Tablet, 75 MG PO DAILY, (Reported) Docusate Sodium 100 Mg Capsule, 300 MG PO HS, (Reported) TAKES 3 (100MG) CAPSULES Finasteride 5 Mg Tablet, 5 MG PO HS, (Reported) Furosemide 40 Mg Tablet, 40 MG PO DAILY, (Reported) Gabapentin 600 Mg Tablet, 600 MG PO 0800,2200, (Reported) TAKES 300MG +600MG AT THE SAME TIME DAILY AND 600MG AT BEDTIME Gabapentin 300 Mg Capsule, 300 MG PO DAILY, (Reported) TAKES 300MG +600MG AT THE SAME TIME DAILY Glipizide 5 Mg Tablet, 5 MG PO DAILY, (Reported) Hydralazine HCl 100 Mg Tablet, 100 MG PO QID, (Reported) HOLD AND NOTIFY MED FOR SBP<110 Hydrocodone Bit/Acetaminophen 1 Each Tablet, 1 TAB PO TID PRN for PAIN-MODERATE, (Reported) Hydrocodone/Acetaminophen 1 Each Tablet, 1 TAB PO HS, (Reported) Insulin Glargine,Hum.rec.anlog 300 Unit/1 Ml Insuln.pen, 6 UNIT SQ DAILY, (Repo rted) Isosorbide Mononitrate 60 Mg Tab, 90 MG PO DAILY, (Reported) TAKES 1 & 1/2 (60MG) TABLET Lactulose 10 Gm/15 Ml Solution, 15 ML PO DAILY, (Reported) Mag Hydrox/Al Hydrox/Simeth Unknown Strength Oral.susp, 30 ML PO Q4H PRN for INDIGESTION, (Reported) Magnesium Citrate 296 Ml Solution, 296 ML PO EVERY 4 DAYS PRN for CONSTIPATION- 9TH LINE, (Reported) 1 BOTTLE EVERY 4 DAYS, IF NO BOWEL MOVEMENT, NEEDED FOR CONSTIPATION Magnesium Hydroxide 400 Mg/5 Ml Oral.susp, 30 ML PO DAILY PRN for CONSTIPATION- 7TH LINE, (Reported) Menthol 118 Ml Gel..ml., 1 APPLIC TP QID PRN for PAIN-BREAKTHROUGH, (Reported) Na Phos,M-B/Na Phos,Di-Ba 133 Ml Enema, 133 ML RC DAILY PRN for CONSTIPATION, (Reported) Ondansetron 8 Mg Tab.rapdis, 8 MG PO TID, (Reported) Pantoprazole Sodium 20 Mg Tablet.dr, 20 MG PO DAILY, (Reported) Phenazopyridine HCl 200 Mg Tablet, 200 MG PO TID PRN for BLADDER SPASMS, (Reported) Polyethylene Glycol 3350 17 Gm Powd.pack, 17 GM PO DAILY, (Reported) Potassium Chloride 10 Meq Tab.er.prt, 10 MEQ PO DAILY, (Reported) Tamsulosin HCl 0.4 Mg Cap, 0.4 MG PO DAILY, (Reported) Terazosin HCl 1 Mg Capsule, 1 MG PO BID, (Reported) Testosterone 75 Gm Gel.dive master, 2 PUMP TD DAILY, (Reported) Trazodone HCl 50 Mg Tablet, 50 MG PO HS, (Reported) Patient Home Medication List Home Medication List Reviewed: Yes Review of Systems Review of Systems Constitutional: malaise, weakness, other (PT PT UNABLE TO GIVE ANY INFORMATION ON ARRIVAL--SEMI-OBTUNDED ON ARRIVAL--KEEPS EYES CLOSED AND IS NOT TALKING AND NOT FOLLOWING COMMANDS) Respiratory: see HPI Psychiatric/Neurological: See HPI Past Okxykhg-Qitffk-Zdwxcg Hx Past Med/Social Hx: Reviewed and Corrections made Patient Social History Smoking Status: Former Smoker Type Used: Cigars Former Smoker, Quit: Oct 07, 1979 2nd Hand Smoke Exposure: No Recent Foreign Travel: No Contact w/Someone Who Travel: No Recent Infectious Disease Expo: No Recent Hopitalizations: Yes (Heart Cath, X2 stents) Seasonal Allergies Seasonal Allergies: No Past Medical History Surgeries: Yes Amputation, Cardiac, Coronary Stent, Eye Surgery, Neurological, Orthopedic, Transurethral Resection, Vascular Surgery Respiratory: Yes Pneumonia, Sleep Apnea Currently Using CPAP: No Currently Using BIPAP: No Cardiac: Yes (STEMI'S; STENTS X 3 IN HEART;STENT R LEG;MULT INTERVENTIONS L LEG) Chronic Edema/Swelling, Coronary Artery Disease, Heart Attack, High Cholesterol, Hypertension, Peripheral Vascular Neurological: Yes Neuropathy Reproductive Disorders: No Sexually Transmitted Disease: No HIV/AIDS: No Genitourinary: Yes (PROSTATE SURGERY) Benign Prostatic Hyperpl, Prostate Problems, UTI-Chronic Gastrointestinal: Yes Chronic Constipation Musculoskeletal: Yes (CHRONIC NECK PAIN; GENERALIZED WEAKNESS ) Amputee, Degenerate Disk Disease, Arthritis, Chronic Back Pain Endocrine: Yes Diabetes, Insulin dep HEENT: Yes (Cataract- right eye; POOR DENTITION) Cataract, Dysphagia Loss of Vision: Denies Hearing Impairment: Denies Cancer: No Did You Recieve Any Treatments: No Psychosocial: Yes Sleep Difficulties, Anxiety, Depression Integumentary: Yes (GANGRENE/INFECTION IN L FOOT;CHRONIC WOUNDS TO RIGHT L EG/FOOT;DECUB SACRAL) Blood Disorders: No Adverse Reaction/Blood Tranf: No Family Medical History Abdominal aortic aneurysm G8 SISTER Alcoholism G8 BROTHER G8 BROTHER G8 BROTHER Arthritis G8 BROTHER G8 BROTHER G8 BROTHER G8 BROTHER G8 BROTHER G8 SISTER G8 SISTER Cardiovascular disease G8 SISTER Diabetes mellitus G8 BROTHER G8 BROTHER G8 BROTHER G8 SISTER G8 SISTER Drug abuse G8 BROTHER G8 BROTHER FH: COPD (chronic obstructive pulmonary disease) 19 FATHER FH: bladder cancer 19 MOTHER FH: prostate cancer 19 FATHER Headache disorder G8 BROTHER G8 BROTHER G8 BROTHER G8 BROTHER G8 BROTHER G8 BROTHER G8 BROTHER G8 BROTHER G8 SISTER G8 SISTER G8 SISTER G8 SISTER Hypercholesterolemia G8 BROTHER G8 BROTHER G8 BROTHER G8 BROTHER G8 BROTHER G8 SISTER G8 SISTER G8 SISTER G8 SISTER Hypertension 19 FATHER G8 BROTHER G8 BROTHER G8 BROTHER G8 BROTHER G8 BROTHER G8 BROTHER G8 BROTHER G8 BROTHER G8 SISTER G8 SISTER G8 SISTER G8 SISTER Thyroid disease Tuberculosis 19 FATHER SURGICAL HISTORY: -CERIVCAL SPINE SURGERY 12/2018 AT [facility] FOR CHRONIC NECK PAIN --DR. MILLIGAN -MULTIPLE VASCULAR INTERVENTIONS TO LEFT LEG--FAILED -LEFT TOE AMPUTATION, LATER FOLLOWED BY LEFT ABOVE THE KNEE AMPUTATION FOR DIABETIC ULCER/GANGRENE/SEVERE PERIPHERAL VASCULAR DISEASE -STENT TO RIGHT LEG -MULTIPLE CARDIAC CATHS AND STENTS X 4--PREVIOUSLY HAD 2 STENTS TO RCA, THEN LAST CATH 06/10/20 WITH STENT X 2 TO LAD -PROSTATE SURGERY FOR BENIGN DISEASE -RIGHT EYE CATARACT SURGERY PT IS DNR/DNI Physical Exam Vital Signs Vital Signs - First Documented 06/28/20 06/28/20 01:15 12:07 Temp 36.8 Pulse 78 Resp 22 B/P (MAP) 151/100 (117) Pulse Ox 100 O2 Delivery Nasal Cannula O2 Flow Rate 3.00 FiO2 32 Capillary Refill : Less Than 3 Seconds Height, Weight, BMI Height: 5'9.00" Weight: 139lbs. 0.0oz. 63.989058sd; 22.00 BMI Method:Stated General Appearance: Thin, Other (VERY LETHARGIC, KEEPS EYES CLOSED. NOT TALKING OR FOLLOWING COMMANDS ON ARRIVAL. LOUD UPPER AIRWAY NOISE) HEENT: Other Neck: Normal Inspection Respiratory: No Accessory Muscle Use, Other (LOUD UPEPR AIRWAY NOISE--PT UNABLE TO CLEAR SECRETIONS-NO COUGH EFFORT) Cardiovascular: Regular Rate, Rhythm, No Edema, No Murmur Gastrointestinal: Soft Back: No CVA Tenderness, Other (STAGE 1 SACRAL DECUB-NO SIGNS OF INFECTION) Extremity: No Pedal Edema, Other (CHRONIC VENOUS STASIS CHANGES TO RIGHT LOWER LEG--NO EDEMA, VERY POOR TURGOR, SIGNIFICANT ATROPHY OF RIGHT LEG. HEAVY DRESSING IN PLACE ON RIGHT FOOT; DIFFICULT TO PALPATE PULSES ON RIGHT DUE TO HEAVY DRESSING LEFT AKA STUMP APPEARS NORMAL. ) Neurologic/Psychiatric: Other (MENTATION ABOVE. ) Skin: Normal Color (PT IS BLACK), Warm/Dry, Other (RIGHT FOOT WITH HEAVY DRESSING IN PLACE--CHRONIC FOOT/HEEL WOUND. MULTIPLE OLD SCARS TO RIGHT LEG FROM PREVIOUS WOUNDS. ) Progress/Results/Core Measures Suspected Sepsis Recent Fever Within 48 Hours: No Infection Criteria Present: None New/Unexplained Altered Menta: Yes Sepsis Screen: No Definite Risk SIRS Temperature: Pulse: 78 Respiratory Rate: 22 Laboratory Tests 06/28/20 01:25: White Blood Count 7.8 Blood Pressure 151 /100 Mean: 117 Laboratory Tests 06/28/20 01:25: Creatinine 1.61H, INR Comment 1.0, Platelet Count 312, Total Bilirubin 0.4 Results/Orders Lab Results Laboratory Tests Test 06/28/20 01:25 06/28/20 01:34 06/28/20 01:44 06/28/20 02:15 Range/Units White Blood Count 7.8 4.3-11.0 10^3/uL Red Blood Count 3.72 L 4.35-5.85 10^6/uL Hemoglobin 10.3 L 13.3-17.7 G/DL Hematocrit 33 L 40-54 % Mean Corpuscular Volume 88 80-99 FL Mean Corpuscular Hemoglobin 28 25-34 PG Mean Corpuscular Hemoglobin Concent 32 32-36 G/DL Red Cell Distribution Width 14.4 10.0-14.5 % Platelet Count 312 130-400 10^3/uL Mean Platelet Volume 9.9 7.4-10.4 FL Neutrophils (%) (Auto) 78 H 42-75 % Lymphocytes (%) (Auto) 12 12-44 % Monocytes (%) (Auto) 7 0-12 % Eosinophils (%) (Auto) 2 0-10 % Basophils (%) (Auto) 0 0-10 % Neutrophils # (Auto) 6.1 1.8-7.8 X 10^3 Lymphocytes # (Auto) 0.9 L 1.0-4.0 X 10^3 Monocytes # (Auto) 0.6 0.0-1.0 X 10^3 Eosinophils # (Auto) 0.2 0.0-0.3 10^3/uL Basophils # (Auto) 0.0 0.0-0.1 10^3/uL Erythrocyte Sedimentation Rate 53 H 0-30 MM/HR Prothrombin Time 13.5 12.2-14.7 SEC INR Comment 1.0 0.8-1.4 Activated Partial Thromboplast Time 33 24-35 SEC Sodium Level 139 135-145 MMOL/L Potassium Level 4.7 3.6-5.0 MMOL/L Chloride Level 102 98-107 MMOL/L Carbon Dioxide Level 27 21-32 MMOL/L Anion Gap 10 5-14 MMOL/L Blood Urea Nitrogen 31 H 7-18 MG/DL Creatinine 1.61 H 0.60-1.30 MG/DL Estimat Glomerular Filtration Rate 51 BUN/Creatinine Ratio 19 Glucose Level 168 H 70-105 MG/DL Calcium Level 9.9 8.5-10.1 MG/DL Corrected Calcium 10.1 8.5-10.1 MG/DL Magnesium Level 2.3 1.6-2.4 MG/DL Total Bilirubin 0.4 0.1-1.0 MG/DL Aspartate Amino Transf (AST/SGOT) 13 5-34 U/L Alanine Aminotransferase (ALT/SGPT) 19 0-55 U/L Alkaline Phosphatase 83 40-136 U/L Lactate Dehydrogenase 179 125-220 U/L Total Creatine Kinase 31 30-200 U/L Creatine Kinase MB 1.6 <6.6 NG/ML Troponin I 0.076 H <0.028 NG/ML C-Reactive Protein High Sensitivity 1.82 H 0.00-0.50 MG/DL B-Type Natriuretic Peptide 27.4 <100.0 PG/ML Total Protein 7.5 6.4-8.2 GM/DL Albumin 3.8 3.2-4.5 GM/DL Procalcitonin 0.50 H <0.10 NG/ML Coronavirus 2019 ([facility]RE[facility]) Negative Negative Coronavirus (COVID-19)(PCR) Negative Negative Urine Color YELLOW Urine Clarity CLEAR Urine pH 6.5 5-9 Urine Specific [place] 1.020 1.016-1.022 Urine Protein 1+ H NEGATIVE Urine Glucose (UA) NEGATIVE NEGATIVE Urine Ketones NEGATIVE NEGATIVE Urine Nitrite NEGATIVE NEGATIVE Urine Bilirubin NEGATIVE NEGATIVE Urine Urobilinogen 0.2 < = 1.0 MG/DL Urine Leukocyte Esterase NEGATIVE NEGATIVE Urine RBC (Auto) NEGATIVE NEGATIVE Urine RBC NONE /HPF Urine WBC NONE /HPF Urine Squamous Epithelial Cells 5-10 /HPF Urine Crystals NONE /LPF Urine Bacteria NEGATIVE /HPF Urine Casts PRESENT /LPF Urine Hyaline Casts 5-10 H /LPF Urine Mucus SMALL H /LPF Urine Culture Indicated NO Test 06/28/20 10:30 06/28/20 10:57 06/28/20 15:43 06/28/20 19:57 Range/Units B-Type Natriuretic Peptide 91.4 <100.0 PG/ML Blood Gas Puncture Site RR Blood Gas Patient Temperature 100.5 Arterial Blood pH 7.35 L 7.37-7.43 Arterial Blood Partial Pressure CO2 53 H 35-45 MMHG Arterial Blood Partial Pressure O2 124 H 79-93 MMHG Arterial Blood HCO3 28 H 23-27 MMOL/L Arterial Blood Total CO2 29.3 21.0-31.0 MMOL/L Arterial Blood Oxygen Saturation 98 94-100 % Arterial Blood Base Excess 2.8 H -2.5-2.5 MMOL/L Brent Test YES-POS Blood Gas Ventilator Setting NO Blood Gas Inspired Oxygen 3 Glucometer 203 H 70-110 MG/DL Troponin I 0.068 H <0.028 NG/ML Test 06/28/20 20:41 Range/Units Glucometer 178 H 70-110 MG/DL My Orders Orders - EDDY MIRELES DO Ed Iv/Invasive Line Start (06/28/20 01:27) Ekg Tracing (06/28/20 01:27) O2 (06/28/20:27) Monitor-Rhythm Ecg Trace Only (06/28/20:) Chest 1 View, Ap/Pa Only (06/28/20:) BNP (06/28/20:) Cbc With Automated Diff (06/28/20:) Comprehensive Metabolic Panel (06/28/20:) Creatine Kinase (06/28/20) Creatine Kinase Mb (06/28/20) Hs C Reactive Protein (06/28/20) Erythrocyte Sedimentation Rate (06/28/20:) Magnesium (06/28/20:) Procalcitonin (Pct) (06/28/20) Protime With Inr (06/28/20) Partial Thromboplastin Time (06/28/20:) Blood Culture (06/28/20:) Troponin I (06/28/20:) Methylprednisolone Sod Succ (Solu-Medrol (06/28/20:) LDH (06/28/20:27) Coronavirus Sars-Cov-2 So 2018 (06/28/20 01:27) Covid 19 Inhouse Test (06/28/20:27) Catheter(Urinary) Insert & Ass 03,15 (06/28/20 02:01) Ua Culture If Indicated (06/28/20 02:01) Ed Iv/Invasive Line Start (06/28/20 02:15) Ns Iv 1000 Ml (Sodium Chloride 0.9%) (06/28/20 02:15) Ct Head Wo-R/O Stroke (06/28/20 03:41) Ct Chest Wo (06/28/20 03:41) Ed Iv/Invasive Line Start (06/28/20 04:46) Lactated Ringers (Lr 1000 Ml Iv Solution (06/28/20 04:46) Cefepime Injection (Maxipime Injection) (06/28/20 05:45) Vancomycin Injection (Vancomycin Injecti (06/28/20 05:45) Vancomycin Injection (Vancomycin Injecti (06/28/20 06:45) Cefepime Injection (Maxipime Injection) (06/28/20 06:00) Fentanyl Injection (Sublimaze Injection (06/28/20 06:30) Medications Given in ED Vital Signs/I&O 06/28/20 06/28/20 06/28/20 06/28/20 16:00 16:00 18:59 19:00 Temp 37.5 Pulse 78 89 Resp 22 B/P (MAP) 149/67 (94) Pulse Ox 99 99 97 O2 Delivery Nasal Cannula Nasal Cannula Nasal Cannula O2 Flow Rate 3.00 3.00 06/28/20 06/28/20 06/28/20 06/28/20 20:00 20:00 21:00 22:43 Temp 36.9 Pulse 85 Resp 21 B/P (MAP) 189/77 (114) Pulse Ox 97 97 98 O2 Delivery Nasal Cannula Nasal Cannula Nasal Cannula Nasal Cannula O2 Flow Rate 2.00 2.00 3.00 06/29/20 06/29/20 06/29/20 06/29/20 00:00 00:00 01:00 02:30 Temp 36.6 Pulse 71 67 Resp 22 B/P (MAP) 152/67 (95) Pulse Ox 97 99 100 O2 Delivery Nasal Cannula Nasal Cannula Nasal Cannula O2 Flow Rate 2.00 2.00 3.00 Capillary Refill : Less Than 3 Seconds Blood Pressure Mean: 117 Progress Note : Progress Note PT IMMEDIATELY SUCTIONED WITH DEEP SUCTION AND WITH SIGNIFICANT IMPROVEMENT IN LUNG SOUNDS, AND LUNGS REMAINED CLEAR FOR REMAINDER OF ER STAY O2 SATS REMAINED IN UPPER 90'S ON 3 1/2 L/NC BP DOWN WITHOUT TREATMENT GIVEN IV FLUIDS --IMPROVED MENTATION MENTATION IMPROVED DURING COURSE OF ER STAY, BUT PT REMAINS VERY LETHARGIC/GENERALLY WEAK AND IS UNABLE TO TO EVEN SLIGHTLY REPOSITION HIMSELF IN BED, UNABLE TO FORCIBLY COUGH DUE TO WEAKNESS. PT NOW WILL ANSWER SOME QUESTIONS, SPEECH FAIRLY CLEAR, ORIENTED TO PERSON AND PLACE, GROSSLY ORIENTED TO SITUATION AND TIME ECG Initial ECG Impression Date: Jun 28, 2020 Initial ECG Impression Time: 01:43 Initial ECG Rate: 73 Initial ECG Rhythm: Normal Sinus Diagnostic Imaging Comments CXR-- PER RADIOLOGIST REPORT AT 0532 FINDINGS: Single frontal radiographic view of the chest was obtained and demonstrates low inspiratory volumes with bilateral perihilar opacities. Appearance is suggestive of mixed infiltrate and atelectasis. Overall, there has been significant interval improved aeration since prior exam, particularly on the right. There is no large effusion or pneumothorax. Cardiac silhouette and pulmonary vasculature are within normal limits. Osseous structures show no new acute abnormalities. IMPRESSION: 1. Persistent low lung volumes with bilateral perihilar atelectasis and infiltrate. Again, there has been overall improved aeration when compared to prior exam. CT HEAD--NO ACUTE PROCESS, PER [facility] RADIOLOGIST VIA PHONE AT 0457 PER [facility] REPORT AT 0640 IMPRESSION: 1. No acute intracranial abnormality. No CT evidence of mass, acute infarct or intracranial hemorrhage. 2. Small vessel ischemic changes in the periventricular and subcortical white matter; likely chronic. CT CHEST-- 6 MM DENSITY IN LINGULA, SUSPECT PARTIAL ATELECTASIS BILATERALLY. PER [facility] VIA FAX AT [id number]: PER [facility] REPORT AT 0640 FINDINGS: Evaluation of lung edmond demonstrates patchy alveolar opacities within the bilateral lower lobes. There is also minimal involvement of the posterior lingula of the left upper lobe. Findings are suspicious for infiltrate superimposed on background atelectasis. There is no large effusion or pneumothorax. Evaluation for pulmonary nodular mass is suboptimal secondary to airspace disease, but aerated portions of the lungs show no suspicious pulmonary parenchymal mass. Cardiomediastinal structures show mild cardiomegaly. There is small pericardial effusion. Calcified aortic and coronary atherosclerosis is noted. No pathologically enlarged or morphologically abnormal adenopathy is seen within the mediastinum, cornell, nor axilla. Osseous structures show no acute abnormalities. Included portions of the upper abdomen show moderate colonic air and stool. IMPRESSION: 1. Bilateral airspace disease suspicious for mixture of infiltrate and atelectasis. Follow-up serial chest radiographs is recommended. 2. Mild cardiomegaly and small pericardial effusion. 3. Moderate colonic air and stool. Please correlate for constipation. Reviewed: Reviewed by Me Departure Communication (Admissions) 0600--SPOKE WITH DR. MILLS, HOSPITALIST, ACCEPTS PT FOR ADMIT. NO ADDITIONAL ORDERS NOTED. 0620--SPOKE WITH , UPDATED HER ON PT'S CONDITION. Impression Primary Impression: CAP (community acquired pneumonia) Additional Impressions: Altered mental status HTN (hypertension) LETHARGY/GENERALIZED WEAKNESS T2DM (type 2 diabetes mellitus) Status post coronary artery stent placement Recent non-ST elevation myocardial infarction (NSTEMI) RECENT CARDIAC STENT PLACEMENT CHRONIC WOUND RIGHT FOOT Dehydration Disposition: ADMITTED INPATIENT Condition: Improved Admissions Decision to Admit Reason: Admit from ER (General) Decision to Admit/Date: Jun 28, 2020 Time/Decision to Admit Time: 06:00 Departure-Patient Inst. Referrals: TERRI TAVAREZ DO (PCP/Family) Primary Care Physician EDDY MIRELES DO Jun 28, 2020 02:08
[2020-06-28 02:09] LABS: CREATINE KINASE MB 1.6 NG/ML (<6.6)
[2020-06-28] MEDS ORDERED: NS IV 1000 ML 1,000 ML IV SCH (02:15)
[2020-06-28 02:23] LABS: BILIRUBIN,URINE NEGATIVE (NEGATIVE); CLARITY,URINE CLEAR; COLOR,URINE YELLOW; GLUCOSE, URINE (UA) NEGATIVE (NEGATIVE); KETONES,URINE NEGATIVE (NEGATIVE); LEUKOCYTE ESTERASE ,URINE NEGATIVE (NEGATIVE); NITRITE,URINE NEGATIVE (NEGATIVE); PH,URINE 6.5 (5-9); PROTEIN,URINE 1+ (NEGATIVE)
[2020-06-28 02:43] LABS: BACTERIA,URINE NEGATIVE /HPF
[2020-06-28] MEDS ORDERED: LACTATED RINGERS 1,000 ML IV ONE (04:46)
--- NOTE | 2020-06-28 05:29 | Diagnostic Imaging Report ---
INDICATION: Dyspnea. COMPARISON: 06/16/2020 FINDINGS: Single frontal radiographic view of the chest was obtained and demonstrates low inspiratory volumes with bilateral perihilar opacities. Appearance is suggestive of mixed infiltrate and atelectasis. Overall, there has been significant interval improved aeration since prior exam, particularly on the right. There is no large effusion or pneumothorax. Cardiac silhouette and pulmonary vasculature are within normal limits. Osseous structures show no new acute abnormalities. IMPRESSION: 1. Persistent low lung volumes with bilateral perihilar atelectasis and infiltrate. Again, there has been overall improved aeration when compared to prior exam. Dictated by: Dictated on workstation # [id number]
[2020-06-28] MEDS ORDERED: VANCOMYCIN INJECTION 750 MG in NS (IVPB) 100 ML IV ONE (05:45)
[2020-06-28] MEDS ORDERED: CEFEPIME INJECTION 1,000 MG in WATER (STERILE) FOR INJECTION 10 ML IV ONE (05:45)
[2020-06-28] MEDS ORDERED: CEFEPIME INJECTION 2,000 MG in WATER (STERILE) FOR INJECTION 20 ML IV ONE (06:00)
--- NOTE | 2020-06-28 06:28 | Diagnostic Imaging Report ---
PROCEDURE: CT chest without contrast. TECHNIQUE: Multiple contiguous axial images were obtained through the chest without the use of intravenous contrast. Auto Exposure Controls were utilized during the CT exam to meet ALARA standards for radiation dose reduction. INDICATION: Altered mental status. Neurological deficit. COMPARISON: 07/11/2019 FINDINGS: Evaluation of lung edmond demonstrates patchy alveolar opacities within the bilateral lower lobes. There is also minimal involvement of the posterior lingula of the left upper lobe. Findings are suspicious for infiltrate superimposed on background atelectasis. There is no large effusion or pneumothorax. Evaluation for pulmonary nodular mass is suboptimal secondary to airspace disease, but aerated portions of the lungs show no suspicious pulmonary parenchymal mass. Cardiomediastinal structures show mild cardiomegaly. There is small pericardial effusion. Calcified aortic and coronary atherosclerosis is noted. No pathologically enlarged or morphologically abnormal adenopathy is seen within the mediastinum, cornell, nor axilla. Osseous structures show no acute abnormalities. Included portions of the upper abdomen show moderate colonic air and stool. IMPRESSION: 1. Bilateral airspace disease suspicious for mixture of infiltrate and atelectasis. Follow-up serial chest radiographs is recommended. 2. Mild cardiomegaly and small pericardial effusion. 3. Moderate colonic air and stool. Please correlate for constipation. Dictated by: Dictated on workstation # [id number]
[2020-06-28] MEDS ORDERED: fentaNYL INJECTION 100 MCG/2 ML AMP IVP ONE (06:30)
--- NOTE | 2020-06-28 06:30 | Diagnostic Imaging Report ---
INDICATION: Neurodeficit. TECHNIQUE: Routine non contrast-enhanced axial images were obtained from the skull base to the vertex. Auto Exposure Controls were utilized during the CT exam to meet ALARA standards for radiation dose reduction COMPARISON: None. FINDINGS: The ventricles and cortical sulci are diffusely prominent, compatible with age-related volume loss. There are confluent areas of abnormal, low attenuation in the periventricular white matter. This is consistent with small vessel ischemic changes; age-indeterminate. There is no prior study available for comparison. There is no midline shift or mass-effect. No acute intra-axial hemorrhage is seen. There are no abnormal areas of increased or decreased density to suggest acute hemorrhage or edema. No extra-axial masses or collections are present. The bony calvarium is intact. The visualized paranasal sinuses show minimal scattered mucosal thickening. The mastoid air cells are clear. IMPRESSION: 1. No acute intracranial abnormality. No CT evidence of mass, acute infarct or intracranial hemorrhage. 2. Small vessel ischemic changes in the periventricular and subcortical white matter; likely chronic. Dictated by: Dictated on workstation # [id number]
[2020-06-28] MEDS ORDERED: VANCOMYCIN INJECTION 500 MG in NS (IVPB) 100 ML IV ONE (06:45)
[2020-06-28] MEDS ORDERED: 1/2 NS IV SOLUTION 1,000 ML IV ONE (07:41)
[2020-06-28] MEDS ORDERED: fentaNYL INJECTION 100 MCG/2 ML AMP IV PRN (08:00)
[2020-06-28] MEDS ORDERED: ACETAMINOPHEN 500 MG TAB (TYLENOL) PO PRN (08:00)
[2020-06-28] MEDS ORDERED: 1/2 NS IV SOLUTION 1,000 ML IV SCH (08:00)
--- NOTE | 2020-06-28 09:52 | Pulmonary Consultation ---
History of Present Illness History of Present Illness Date Seen by Provider: Jun 28, 2020 Date of Admission History of Present Illness 74yo poor historian with CAD, and recent hospitalization (06/16-06/19) secondary to worsening SOB, hypoxia and mucous production. PT was lethargic and hypoxic upon admission. Pt was recently admitted and treated for pneumonia with sepsis. Allergies and Home Medications Allergies Coded Allergies: Sulfa (Sulfonamide Antibiotics) (Verified Allergy, Severe, HIVES, 06/28/20) temazepam (Verified Allergy, Severe, 06/28/20) MENTAL CONFUSION hydromorphone (Verified Allergy, Unknown, 06/28/20) zolpidem (Verified Allergy, Unknown, 06/28/20) pravastatin (Verified Adverse Reaction, Severe, RASH, 06/28/20) Home Medications Acetaminophen 325 Mg Capsule, 650 MG PO Q6H PRN for PAIN-MILD (1-4), (Reported) Amlodipine Besylate 5 Mg Tablet, 5 MG PO DAILY, (Reported) Aspirin 81 Mg Tab.chew, 81 MG PO 0900, (Reported) Atorvastatin Calcium 10 Mg Tablet, 10 MG PO HS, (Reported) Baclofen 10 Mg Tablet, 10 MG PO Q8H PRN for MUSCLE SPASMS, (Reported) Bisacodyl 10 Mg Supp.rect, 10 MG RC DAILY PRN for CONSTIPATION-4TH LINE, (Reported) Carvedilol 25 Mg Tablet, 25 MG PO BID, (Reported) NOTIFY MD IF SBP<90 OR >200 OR PULSE <50 Clopidogrel Bisulfate 75 Mg Tablet, 75 MG PO DAILY, (Reported) Docusate Sodium 100 Mg Capsule, 300 MG PO HS, (Reported) TAKES 3 (100MG) CAPSULES Finasteride 5 Mg Tablet, 5 MG PO HS, (Reported) Furosemide 40 Mg Tablet, 40 MG PO DAILY, (Reported) Gabapentin 600 Mg Tablet, 600 MG PO 0800,2200, (Reported) TAKES 300MG +600MG AT THE SAME TIME DAILY AND 600MG AT BEDTIME Gabapentin 300 Mg Capsule, 300 MG PO DAILY, (Reported) TAKES 300MG +600MG AT THE SAME TIME DAILY Glipizide 5 Mg Tablet, 5 MG PO DAILY, (Reported) Hydralazine HCl 100 Mg Tablet, 100 MG PO QID, (Reported) HOLD AND NOTIFY MED FOR SBP<110 Hydrocodone Bit/Acetaminophen 1 Each Tablet, 1 TAB PO TID PRN for PAIN-MODERATE, (Reported) Hydrocodone/Acetaminophen 1 Each Tablet, 1 TAB PO HS, (Reported) Insulin Glargine,Hum.rec.anlog 300 Unit/1 Ml Insuln.pen, 6 UNIT SQ DAILY, (Reported) Isosorbide Mononitrate 60 Mg Tab, 90 MG PO DAILY, (Reported) TAKES 1 & 1/2 (60MG) TABLET Lactulose 10 Gm/15 Ml Solution, 15 ML PO DAILY, (Reported) Mag Hydrox/Al Hydrox/Simeth Unknown Strength Oral.susp, 30 ML PO Q4H PRN for INDIGESTION, (Reported) Magnesium Citrate 296 Ml Solution, 296 ML PO EVERY 4 DAYS PRN for CONSTIPATION- 9TH LINE, (Reported) 1 BOTTLE EVERY 4 DAYS, IF NO BOWEL MOVEMENT, NEEDED FOR CONSTIPATION Magnesium Hydroxide 400 Mg/5 Ml Oral.susp, 30 ML PO DAILY PRN for CONSTIPATION- 7TH LINE, (Reported) Menthol 118 Ml Gel..ml., 1 APPLIC TP QID PRN for PAIN-BREAKTHROUGH, (Reported) Na Phos,M-B/Na Phos,Di-Ba 133 Ml Enema, 133 ML RC DAILY PRN for CONSTIPATION, (Reported) Ondansetron 8 Mg Tab.rapdis, 8 MG PO TID, (Reported) Pantoprazole Sodium 20 Mg Tablet.dr, 20 MG PO DAILY, (Reported) Phenazopyridine HCl 200 Mg Tablet, 200 MG PO TID PRN for BLADDER SPASMS, (Reported) Polyethylene Glycol 3350 17 Gm Powd.pack, 17 GM PO DAILY, (Reported) Potassium Chloride 10 Meq Tab.er.prt, 10 MEQ PO DAILY, (Reported) Tamsulosin HCl 0.4 Mg Cap, 0.4 MG PO DAILY, (Reported) Terazosin HCl 1 Mg Capsule, 1 MG PO BID, (Reported) Testosterone 75 Gm Gel.mdJoshuarubber mill tender, 2 PUMP TD DAILY, (Reported) Trazodone HCl 50 Mg Tablet, 50 MG PO HS, (Reported) Past Xgwyvzs-Qkemjv-Nkerzz Hx Past Med/Social Hx: Reviewed and Corrections made Patient Social History Alcohol Use: Denies Use Recreational Drug Use: No (Hx in ) Smoking Status: Former Smoker Type Used: Cigars Former Smoker, Quit: Oct 07, 1979 2nd Hand Smoke Exposure: No Recent Foreign Travel: No Contact w/Someone Who Travel: No Recent Infectious Disease Expo: No Recent Hopitalizations: Yes (Heart Cath, X2 stents) Seasonal Allergies Seasonal Allergies: No Past Medical History Surgeries: Yes Amputation, Cardiac, Coronary Stent, Neurological, Orthopedic, Prostatectomy, Transurethral Resection, Vascular Surgery Respiratory: Yes Pneumonia, Sleep Apnea Currently Using CPAP: No Currently Using BIPAP: No Cardiac: Yes Chronic Edema/Swelling, Coronary Artery Disease, Heart Attack, High Cholesterol, Hypertension, Peripheral Vascular Neurological: Yes Neuropathy Reproductive Disorders: No Sexually Transmitted Disease: No HIV/AIDS: No Genitourinary: Yes (PROSTATE SURGERY) Benign Prostatic Hyperpl, Prostate Problems, UTI-Chronic Gastrointestinal: Yes Chronic Constipation Musculoskeletal: Yes Amputee, Degenerate Disk Disease, Arthritis, Chronic Back Pain Endocrine: Yes Diabetes, Insulin dep HEENT: Yes (Cataract- right eye; POOR DENTITION) Cataract, Dysphagia Loss of Vision: Denies Hearing Impairment: Denies Cancer: No Did You Recieve Any Treatments: No Psychosocial: Yes Sleep Difficulties, Anxiety, Depression Integumentary: Yes (GANGRENE AND INFECTION IN LEFT FOOT; CHRONIC WOUNDS TO RIGHT LEG AND FOOT. ) Recent Skin Changes Blood Disorders: No Adverse Reaction/Blood Tranf: No Family Medical History Abdominal aortic aneurysm G8 SISTER Alcoholism G8 BROTHER G8 BROTHER G8 BROTHER Arthritis G8 BROTHER G8 BROTHER G8 BROTHER G8 BROTHER G8 BROTHER G8 SISTER G8 SISTER Cardiovascular disease G8 SISTER Diabetes mellitus G8 BROTHER G8 BROTHER G8 BROTHER G8 SISTER G8 SISTER Drug abuse G8 BROTHER G8 BROTHER FH: COPD (chronic obstructive pulmonary disease) 19 FATHER FH: bladder cancer 19 MOTHER FH: prostate cancer 19 FATHER Headache disorder G8 BROTHER G8 BROTHER G8 BROTHER G8 BROTHER G8 BROTHER G8 BROTHER G8 BROTHER G8 BROTHER G8 SISTER G8 SISTER G8 SISTER G8 SISTER Hypercholesterolemia G8 BROTHER G8 BROTHER G8 BROTHER G8 BROTHER G8 BROTHER G8 SISTER G8 SISTER G8 SISTER G8 SISTER Hypertension 19 FATHER G8 BROTHER G8 BROTHER G8 BROTHER G8 BROTHER G8 BROTHER G8 BROTHER G8 BROTHER G8 BROTHER G8 SISTER G8 SISTER G8 SISTER G8 SISTER Thyroid disease Tuberculosis 19 FATHER SURGICAL HISTORY: -CERIVCAL SPINE SURGERY--DR. MILLIGAN -MULTIPLE VASCULAR INTERVENTIONS TO LEFT LEG -LEFT TOE AMPUTATION, LATER FOLLOWED BY ABOVE THE KNEE AMPUTATION FOR DIABETIC ULCER/PERIPHERAL VASCULAR DISEASE -STENT TO RIGHT LEG -MULTIPLE CARDIAC CATHS AND STENTS X 3--LAST CATH 06/10/20 WITH STENT X 1 Review of Systems Time Seen by Provider: 09:48 Sepsis Event Evaluation Height, Weight, BMI Height: 5'9.00" Weight: 139lbs. 0.0oz. 63.356494oe; 22.00 BMI Method:Stated Exam Exam Vital Signs Date Time Temp Pulse Resp B/P (MAP) Pulse Ox O2 Delivery O2 Flow Rate FiO2 06/28/20 08:58 Nasal Cannula 06/28/20 07:30 37.2 82 18 198/84 (122) 06/28/20 07:28 72 14 166/70 98 Nasal Cannula 3.00 06/28/20 06:35 79 14 186/82 (116) 98 Nasal Cannula 3.00 06/28/20 02:41 70 14 145/89 (107) 99 Nasal Cannula 3.00 06/28/20 01:15 36.8 78 22 151/100 (117) 100 Nasal Cannula 06/28/20 01:15 100 Nasal Cannula 3.00 I & O 06/28/20 07:00 Intake Total 2000 ml Balance 2000 ml Height & Weight Height: 5'9.00" Weight: 139lbs. 0.0oz. 63.197980sf; 22.00 BMI Method:Stated Capillary Refill: Less Than 3 Seconds Results Lab Laboratory Tests 06/28/20 01:25 Assessment/Plan Assessment/Plan Acute on chronic respiratory failure -BiPAP PRN -oxygen Pneumonia with recent hospitalization - Vanco and Zosyn -Asencio cultures - pending -Urine and strep legionella ag Acute respiratory distress -Check ABG -Oxygen -Monitor Anemia -Monitor LARISSA CHASE DO Jun 28, 2020 09:52
[2020-06-28] MEDS ORDERED: hydrALAZINE (APESOLINE) 20 MG/ML VIAL IV PRN (10:00)
[2020-06-28] MEDS ORDERED: PHARMACY TO DOSE IV SCH (10:00)
[2020-06-28] MEDS ORDERED: PIPERACILLIN/TAZO 4.5 GM/NS 100 ML IV NR ×2 (10:02)
[2020-06-28 11:12] LABS: ABG BASE EXCESS 2.8 MMOL/L (-2.5-2.5); ABG OXYGEN SATURATION 98 % (94-100); ABG PCO2 53 MMHG (35-45); ABG PH 7.35 (7.37-7.43); ABG PO2 124 MMHG (79-93); ABG TCO2 29.3 MMOL/L (21.0-31.0)
[2020-06-28 11:13] LABS: ALLENS TEST YES-POS; INSPIRED O2 3; VENTILATOR NO
[2020-06-28 11:14] LABS: PATIENT TEMP 100.5
[2020-06-28] MEDS: CARVEDILOL 12.5 MG (COREG) TABLET PO SCH ×2 (11:37→21:05)
[2020-06-28] MEDS: inSUlin ASPART (NovoLOG) 1 UNIT/0.01 ML (CHARGE PER UNIT) SC SCH ×3 (11:37→20:50)
[2020-06-28] MEDS: amLODIPine 10 MG (NORVASC) TAB PO SCH (11:37)
--- NOTE | 2020-06-28 13:34 | History & Physical-Hospitalist ---
History of Present Illness HPI/Chief Complaint Pt is a 74yoAAM well known to me from multiple admissions who presented to the ER due to dyspnea and choking. He does not remember much of this but states he feels better now. He has his lunch in front of him and would like to eat. He has no other complaints other than not wanting to be in the hospital. He states he wants to go home and be with his . When asked about where he would go when he left here he stated "I want to go to [facility] I called and spoke with his who states that they left [facility] on 06/23 and he had done well until last night but had been more fatigue and confused in the evening. Last night he slept let for his nap and when his owke him up around 10pm he was srtuggling to clear his secretions and choking on them prompting her to call 911. In the ER she responded well to deep suctioning. CT chest revealed persistent pneumonia. Source: patient Date Seen 06/28/20 Time Seen by a Provider: 13:25 Attending Physician Manav Cruz MD PCP Los Larose DO Referring Physician Date of Admission Jun 28, 2020 at 06:00 Home Medications & Allergies Home Medications Reviewed patient Home Medication Reconciliation performed by pharmacy medication reconciliations senior qc technician and/or nursing. Patients Allergies have been reviewed. Allergies Allergies Coded Allergies Sulfa (Sulfonamide Antibiotics) (Verified Allergy, Severe, HIVES, 06/28/20) temazepam (Verified Allergy, Severe, 06/28/20) MENTAL CONFUSION hydromorphone (Verified Allergy, Unknown, 06/28/20) zolpidem (Verified Allergy, Unknown, 06/28/20) pravastatin (Verified Adverse Reaction, Severe, RASH, 06/28/20) Past Xerfcvk-Roylmu-Bacnui Hx Past Med/Social Hx: Reviewed and Corrections made Patient Social History Alcohol Use: Denies Use Recreational Drug Use: No (Hx in ) Smoking Status: Former Smoker Former Smoker, Quit: Oct 07, 1979 Type Used: Cigars 2nd Hand Smoke Exposure: No Recent Foreign Travel: No Contact w/other who traveled: No Recent Hopitalizations: Yes (Heart Cath, X2 stents) Recent Infectious Disease Expo: No Seasonal Allergies Seasonal Allergies: No Past Medical History Surgeries: Amputation, Cardiac, Coronary Stent, Neurological, Orthopedic, Prostatectomy, Transurethral Resection, Vascular Surgery Currently Using CPAP: No Currently Using BIPAP: No Cardiac: Chronic Edema/Swelling, Coronary Artery Disease, Heart Attack, High Cholesterol, Hypertension, Peripheral Vascular Neurological: Neuropathy Reproductive: No Sexually Transmitted Disease: No HIV/AIDS: No Genitourinary: Benign Prostatic Hyperpl, Prostate Problems, UTI-Chronic Gastrointestinal: Chronic Constipation Musculoskeletal: Amputee, Degenerate Disk Disease, Arthritis, Chronic Back Pain Endocrine: Diabetes, Insulin dep HEENT: Cataract, Dysphagia Loss of Vision: Denies Hearing Impairment: Denies Did You Recieve Any Treatments: No Psychosocial: Sleep Difficulties, Anxiety, Depression Skin/Integumentary: Recent Skin Changes History of Blood Disorders: No Adverse Reaction to Blood Hernandez: No Family History Abdominal aortic aneurysm G8 SISTER Alcoholism G8 BROTHER G8 BROTHER G8 BROTHER Arthritis G8 BROTHER G8 BROTHER G8 BROTHER G8 BROTHER G8 BROTHER G8 SISTER G8 SISTER Cardiovascular disease G8 SISTER Diabetes mellitus G8 BROTHER G8 BROTHER G8 BROTHER G8 SISTER G8 SISTER Drug abuse G8 BROTHER G8 BROTHER FH: COPD (chronic obstructive pulmonary disease) 19 FATHER FH: bladder cancer 19 MOTHER FH: prostate cancer 19 FATHER Headache disorder G8 BROTHER G8 BROTHER G8 BROTHER G8 BROTHER G8 BROTHER G8 BROTHER G8 BROTHER G8 BROTHER G8 SISTER G8 SISTER G8 SISTER G8 SISTER Hypercholesterolemia G8 BROTHER G8 BROTHER G8 BROTHER G8 BROTHER G8 BROTHER G8 SISTER G8 SISTER G8 SISTER G8 SISTER Hypertension 19 FATHER G8 BROTHER G8 BROTHER G8 BROTHER G8 BROTHER G8 BROTHER G8 BROTHER G8 BROTHER G8 BROTHER G8 SISTER G8 SISTER G8 SISTER G8 SISTER Thyroid disease Tuberculosis 19 FATHER SURGICAL HISTORY: -CERIVCAL SPINE SURGERY--DR. MILLIGAN -MULTIPLE VASCULAR INTERVENTIONS TO LEFT LEG -LEFT TOE AMPUTATION, LATER FOLLOWED BY ABOVE THE KNEE AMPUTATION FOR DIABETIC ULCER/PERIPHERAL VASCULAR DISEASE -STENT TO RIGHT LEG -MULTIPLE CARDIAC CATHS AND STENTS X 3--LAST CATH 06/10/20 WITH STENT X 1 Review of Systems ROS-Unable to Obtain: clinical condition Constitutional: see HPI Physical Exam Physical Exam Vital Signs Vital Signs - First Documented 06/28/20 06/28/20 01:15 12:07 Temp 36.8 Pulse 78 Resp 22 B/P (MAP) 151/100 (117) Pulse Ox 100 O2 Delivery Nasal Cannula O2 Flow Rate 3.00 FiO2 32 Capillary Refill : Less Than 3 Seconds Height, Weight, BMI Height: 5'9.00" Weight: 139lbs. 0.0oz. [age]yo; 22.00 BMI Method:Stated General Appearance: No Apparent Distress, Chronically ill, Thin HEENT: PERRL/EOMI, Moist Mucous Membranes Respiratory: Lungs Clear, No Accessory Muscle Use, Other (on 3lpm NC) Cardiovascular: Regular Rate, Rhythm, No Murmur Gastrointestinal: Normal Bowel Sounds, Non Tender, Soft Extremity: No Calf Tenderness, No Pedal Edema, Other (s/p amputation on RLE) Neurologic/Psychiatric: Alert, Normal Mood/Affect, Other (oriented to person and place, not to details of stay) Skin: Normal Color, Warm/Dry Results Results/Procedures Labs Laboratory Tests 06/28/20 01:25 Patient resulted labs reviewed. Imaging: Reviewed Imaging Report Assessment/Plan Admission Diagnosis Acute Respiratory Failure Admission Status: Inpatient Order (span 2 midnights) Reason for Inpatient Admission: see below Assessment and Plan Acute Respiratory Failure CAP Continue on abx Await cultures MAT protocol COVID pending Deep suction as needed Pulm consulted, appreciate recs CAD PAD HTN Cardiology consulted, appreciate recs Continue current meds IDDMII SSI with accuchecks Poor prognosis Discussed with who expresses frustration about his multiple admission and is worried she is doing something wrong Discussed his progression the past few weeks and how he has worsened despite multiple hospital admissions and how he has been telling family and friends he is dying interested in pursuing hospice in order to honor his wishes for not wanting to be in the hospital Palliative care consulted, appreciate assistance DVT ppx: Lovenox Diagnosis/Problems Diagnosis/Problems (1) Status post coronary artery stent placement Status: Acute (2) T2DM (type 2 diabetes mellitus) Status: Chronic Qualifiers: Diabetes mellitus wood products 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 insulin use: with wood products 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 use Diabetes mellitus complication status: with kidney complications Diabetes mellitus complication detail: with chronic kidney disease Chronic kidney disease stage: stage 3 (moderate) Qualified Codes: E11.22 - Type 2 diabetes mellitus with diabetic chronic kidney disease; N18.3 - Chronic kidney disease, stage 3 (moderate); 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 (3) BPH (benign prostatic hyperplasia) Status: Chronic Qualifiers: Lower urinary tract symptom presence: unspecified whether lower urinary tract symptoms present Qualified Codes: N40.0 - Benign prostatic hyperplasia without lower urinary tract symptoms (4) HLD (hyperlipidemia) Status: Chronic Qualifiers: Hyperlipidemia type: unspecified Qualified Codes: E78.5 - Hyperlipidemia, unspecified (5) HTN (hypertension) Status: Acute Qualifiers: Hypertension type: essential hypertension Qualified Codes: I10 - Essential (primary) hypertension (6) Recent non-ST elevation myocardial infarction (NSTEMI) Status: Acute (7) CAP (community acquired pneumonia) Qualifiers: Laterality: right Lung location: unspecified part of lung Qualified Codes: J18.9 - Pneumonia, unspecified organism (8) CAD (coronary artery disease) Status: Chronic Qualifiers: Coronary Disease-Associated Artery/Lesion type: unspecified vessel or lesion type [place] vs. transplanted heart: [place] heart Associated angina: without angina Qualified Codes: I25.10 - Atherosclerotic heart disease of [place] coronary artery without angina pectoris (9) IDDM (insulin dependent diabetes mellitus) Status: Chronic (10) PNA (pneumonia) Qualifiers: Pneumonia type: aspiration pneumonia Aspiration pneumonia type: unspecified Laterality: right Lung location: unspecified part of lung Qualified Codes: J69.0 - Pneumonitis due to inhalation of food and vomit Clinical Quality Measures DVT/VTE Risk/Contraindication: Risk Factor Score Per Nursin RFS Level Per Nursing on Admit: 4+=Very High HAWA BILLINGS MD Jun 28, 2020 13:34
[2020-06-28] MEDS: CEFEPIME 1,000 MG/SWFI 10 ML IV PUSH IV SCH ×4 (14:29→21:05)
[2020-06-28] MEDS ORDERED: RT-ALBUTEROL INHALER HFA (VENTOLIN HFA) 18 GM IH PRN (16:00)
[2020-06-28] MEDS: PIPERACILLIN/TAZOBACTAM (BULK) 4.5 GM in NS (IVPB) 100 ML IV SCH (16:07)
[2020-06-28] MEDS: RT-ALBUTEROL INHALER HFA (VENTOLIN HFA) 18 GM IH SCH ×3 (16:43→22:43)
--- NOTE | 2020-06-28 17:54 | Consultation-Cardiology ---
HPI-Cardiology Cardiology Consultation: Date of Consultation 06/28/20 Date of Admission Attending Physician Manav Cruz MD Admitting Physician Los Larose DO Consulting Physician Maribeth LOMAS MD HPI: Time Seen by a Provider: 17:54 [id number] Hx Patient Social History Alcohol Use: Denies Use Recreational Drug Use: No (Hx in ) Smoking Status: Former Smoker Former smoker/When Quit: Dec 29, 1979 Type Used: Cigars 2nd Hand Smoke Exposure: No Recent Foreign Travel: No Recent Infectious Disease Expo: No Past Medical History PMH As described under Assessment. Family Medical History Family Medical History: Does not report fam h/o early CAD or SCD Family History: Abdominal aortic aneurysm G8 SISTER Alcoholism G8 BROTHER G8 BROTHER G8 BROTHER Arthritis G8 BROTHER G8 BROTHER G8 BROTHER G8 BROTHER G8 BROTHER G8 SISTER G8 SISTER Cardiovascular disease G8 SISTER Diabetes mellitus G8 BROTHER G8 BROTHER G8 BROTHER G8 SISTER G8 SISTER Drug abuse G8 BROTHER G8 BROTHER FH: COPD (chronic obstructive pulmonary disease) 19 FATHER FH: bladder cancer 19 MOTHER FH: prostate cancer 19 FATHER Headache disorder G8 BROTHER G8 BROTHER G8 BROTHER G8 BROTHER G8 BROTHER G8 BROTHER G8 BROTHER G8 BROTHER G8 SISTER G8 SISTER G8 SISTER G8 SISTER Hypercholesterolemia G8 BROTHER G8 BROTHER G8 BROTHER G8 BROTHER G8 BROTHER G8 SISTER G8 SISTER G8 SISTER G8 SISTER Hypertension 19 FATHER G8 BROTHER G8 BROTHER G8 BROTHER G8 BROTHER G8 BROTHER G8 BROTHER G8 BROTHER G8 BROTHER G8 SISTER G8 SISTER G8 SISTER G8 SISTER Thyroid disease Tuberculosis 19 FATHER Allergies and Home Medications Allergies Coded Allergies: Sulfa (Sulfonamide Antibiotics) (Verified Allergy, Severe, HIVES, 06/28/20) temazepam (Verified Allergy, Severe, 06/28/20) MENTAL CONFUSION hydromorphone (Verified Allergy, Unknown, 06/28/20) zolpidem (Verified Allergy, Unknown, 06/28/20) pravastatin (Verified Adverse Reaction, Severe, RASH, 06/28/20) Home Medications Acetaminophen 325 Mg Capsule, 650 MG PO Q6H PRN for PAIN-MILD (1-4), (Reported) Amlodipine Besylate 5 Mg Tablet, 5 MG PO DAILY, (Reported) Aspirin 81 Mg Tab.chew, 81 MG PO 0900, (Reported) Atorvastatin Calcium 10 Mg Tablet, 10 MG PO HS, (Reported) Baclofen 10 Mg Tablet, 10 MG PO Q8H PRN for MUSCLE SPASMS, (Reported) Bisacodyl 10 Mg Supp.rect, 10 MG RC DAILY PRN for CONSTIPATION-4TH LINE, (Reported) Carvedilol 25 Mg Tablet, 25 MG PO BID, (Reported) NOTIFY MD IF SBP<90 OR >200 OR PULSE <50 Clopidogrel Bisulfate 75 Mg Tablet, 75 MG PO DAILY, (Reported) Docusate Sodium 100 Mg Capsule, 300 MG PO HS, (Reported) TAKES 3 (100MG) CAPSULES Finasteride 5 Mg Tablet, 5 MG PO HS, (Reported) Furosemide 40 Mg Tablet, 40 MG PO DAILY, (Reported) Gabapentin 600 Mg Tablet, 600 MG PO 0800,2200, (Reported) TAKES 300MG +600MG AT THE SAME TIME DAILY AND 600MG AT BEDTIME Gabapentin 300 Mg Capsule, 300 MG PO DAILY, (Reported) TAKES 300MG +600MG AT THE SAME TIME DAILY Glipizide 5 Mg Tablet, 5 MG PO DAILY, (Reported) Hydralazine HCl 100 Mg Tablet, 100 MG PO QID, (Reported) HOLD AND NOTIFY MED FOR SBP<110 Hydrocodone Bit/Acetaminophen 1 Each Tablet, 1 TAB PO TID PRN for PAIN-MODERATE, (Reported) Hydrocodone/Acetaminophen 1 Each Tablet, 1 TAB PO HS, (Reported) Insulin Glargine,Hum.rec.anlog 300 Unit/1 Ml Insuln.pen, 6 UNIT SQ DAILY, (Reported) Isosorbide Mononitrate 60 Mg Tab, 90 MG PO DAILY, (Reported) TAKES 1 & 1/2 (60MG) TABLET Lactulose 10 Gm/15 Ml Solution, 15 ML PO DAILY, (Reported) Mag Hydrox/Al Hydrox/Simeth Unknown Strength Oral.susp, 30 ML PO Q4H PRN for INDIGESTION, (Reported) Magnesium Citrate 296 Ml Solution, 296 ML PO EVERY 4 DAYS PRN for CONSTIPATION- 9TH LINE, (Reported) 1 BOTTLE EVERY 4 DAYS, IF NO BOWEL MOVEMENT, NEEDED FOR CONSTIPATION Magnesium Hydroxide 400 Mg/5 Ml Oral.susp, 30 ML PO DAILY PRN for CONSTIPATION- 7TH LINE, (Reported) Menthol 118 Ml Gel..ml., 1 APPLIC TP QID PRN for PAIN-BREAKTHROUGH, (Reported) Na Phos,M-B/Na Phos,Di-Ba 133 Ml Enema, 133 ML RC DAILY PRN for CONSTIPATION, (Reported) Ondansetron 8 Mg Tab.rapdis, 8 MG PO TID, (Reported) Pantoprazole Sodium 20 Mg Tablet.dr, 20 MG PO DAILY, (Reported) Phenazopyridine HCl 200 Mg Tablet, 200 MG PO TID PRN for BLADDER SPASMS, (Reported) Polyethylene Glycol 3350 17 Gm Powd.pack, 17 GM PO DAILY, (Reported) Potassium Chloride 10 Meq Tab.er.prt, 10 MEQ PO DAILY, (Reported) Tamsulosin HCl 0.4 Mg Cap, 0.4 MG PO DAILY, (Reported) Terazosin HCl 1 Mg Capsule, 1 MG PO BID, (Reported) Testosterone 75 Gm Gel.md.talent acquisition specialist, 2 PUMP TD DAILY, (Reported) Trazodone HCl 50 Mg Tablet, 50 MG PO HS, (Reported) Physical Exam-Cardiology Physical Exam Vital Signs/I&O 06/28/20 06/28/20 06/28/20 06/28/20 06:35 07:28 07:30 07:50 Temp 37.2 Pulse 79 72 82 88 Resp 14 14 18 B/P (MAP) 186/82 (116) 166/70 198/84 (122) Pulse Ox 98 98 O2 Delivery Nasal Cannula Nasal Cannula O2 Flow Rate 3.00 3.00 06/28/20 06/28/20 06/28/20 06/28/20 08:58 09:00 11:00 12:00 Pulse Ox 98 98 99 O2 Delivery Nasal Cannula Nasal Cannula Nasal Cannula Nasal Cannula O2 Flow Rate 3.00 3.00 3.00 06/28/20 06/28/20 06/28/20 06/28/20 12:00 12:07 12:38 16:00 Temp 36.8 37.2 37.5 Pulse 80 88 89 78 Resp 18 22 B/P (MAP) 142/78 (99) 149/67 (94) Pulse Ox 99 98 99 O2 Delivery Nasal Cannula Nasal Cannula FiO2 32 06/28/20 16:00 Pulse Ox 99 O2 Delivery Nasal Cannula O2 Flow Rate 3.00 Capillary Refill : Less Than 3 Seconds Data Review Labs Laboratory Tests 06/28/20 01:25: White Blood Count 7.8, Red Blood Count 3.72L, Hemoglobin 10.3L, Hematocrit 33L, Mean Corpuscular Volume 88, Mean Corpuscular Hemoglobin 28, Mean Corpuscular Hemoglobin Concent 32, Red Cell Distribution Width 14.4, Platelet Count 312, Mean Platelet Volume 9.9, Neutrophils (%) (Auto) 78H, Lymphocytes (%) (Auto) 12, Monocytes (%) (Auto) 7, Eosinophils (%) (Auto) 2, Basophils (%) (Auto) 0, Neutrophils # (Auto) 6.1, Lymphocytes # (Auto) 0.9L, Monocytes # (Auto) 0.6, Eosinophils # (Auto) 0.2, Basophils # (Auto) 0.0, Erythrocyte Sedimentation Rate 53H, Prothrombin Time 13.5, INR Comment 1.0, Activated Partial Thromboplast Time 33, Sodium Level 139, Potassium Level 4.7, Chloride Level 102, Carbon Dioxide Level 27, Anion Gap 10, Blood Urea Nitrogen 31H, Creatinine 1.61H, Estimat Glomerular Filtration Rate 51, BUN/Creatinine Ratio 19, Glucose Level 168H, Calcium Level 9.9, Corrected Calcium 10.1, Magnesium Level 2.3, Total Bilirubin 0.4, Aspartate Amino Transf (AST/SGOT) 13, Alanine Aminotransferase (ALT/SGPT) 19, Alkaline Phosphatase 83, Lactate Dehydrogenase 179, Total Creatine Kinase 31, Creatine Kinase MB 1.6, Troponin I 0.076H, C-Reactive Protein High Sensitivity 1.82H, B-Type Natriuretic Peptide 27.4, Total Protein 7.5, Albumin 3.8, Procalcitonin 0.50H 06/28/20 01:34: Coronavirus 2019 (ANDREY) Negative 06/28/20 01:44: Coronavirus (COVID-19)(PCR) Negative 06/28/20 02:15: Urine Color YELLOW, Urine Clarity CLEAR, Urine pH 6.5, Urine Specific [place] 1.020, Urine Protein 1+H, Urine Glucose (UA) NEGATIVE, Urine Ketones NEGATIVE, Urine Nitrite NEGATIVE, Urine Bilirubin NEGATIVE, Urine Urobilinogen 0.2, Urine Leukocyte Esterase NEGATIVE, Urine RBC (Auto) NEGATIVE, Urine RBC NONE, Urine WBC NONE, Urine Squamous Epithelial Cells 5-10, Urine Crystals NONE, Urine Bacteria NEGATIVE, Urine Casts PRESENT, Urine Hyaline Casts 5-10H, Urine Mucus SMALLH, Urine Culture Indicated NO 06/28/20 10:30: B-Type Natriuretic Peptide 91.4 06/28/20 10:57: Blood Gas Puncture Site RR, Blood Gas Patient Temperature 100.5, Arterial Blood pH 7.35L, Arterial Blood Partial Pressure CO2 53H, Arterial Blood Partial Pressure O2 124H, Arterial Blood HCO3 28H, Arterial Blood Total CO2 29.3, Arterial Blood Oxygen Saturation 98, Arterial Blood Base Excess 2.8H, Brent Test YES-POS, Blood Gas Ventilator Setting NO, Blood Gas Inspired Oxygen 3 06/28/20 15:43: Glucometer 203H A/P-Cardiology Plan Thank you for your consultation. Please call me if you have any questions. Boby Lomas MD, FACP, FACC, FSCAI, FHRS, CCDS Interventional Cardiology Cardiac Electrophysiology Vascular Medicine and Endovascular Interventions Clinical Quality Measures DVT/VTE Risk/Contraindication: Risk Factor Score Per Nursin RFS Level Per Nursing on Admit: 4+=Very High Maribeth LOMAS MD Jun 28, 2020 17:54
[2020-06-28] MEDS ORDERED: SENNA W/DOCUSATE (SENOKOT S) TABLET PO PRN (18:00)
[2020-06-29] VITALS: BP 152/67
[2020-06-29] MEDS: PIPERACILLIN/TAZOBACTAM (BULK) 4.5 GM in NS (IVPB) 100 ML IV SCH ×2 (00:20→07:58)
[2020-06-29] MEDS: RT-ALBUTEROL INHALER HFA (VENTOLIN HFA) 18 GM IH SCH ×3 (02:30→09:43)
[2020-06-29 03:56] LABS: BASOPHILS % (AUTO) 0 % (0-10); EOSINOPHILS % (AUTO) 0 % (0-10); HEMATOCRIT 27 % (40-54); HEMOGLOBIN 8.7 g/dL (13.3-17.7); LYMPHOCYTES # (AUTO) 0.8 10^3/uL (1.0-4.0); LYMPHOCYTES % (AUTO) 10 % (12-44); MEAN CORPUSCULAR HEMOGLOBIN 28 pg (25-34); MEAN CORPUSCULAR HGB CONC 32 g/dL (32-36); MEAN CORPUSCULAR VOLUME 88 fL (80-99); MEAN PLATELET VOLUME 9.9 fL (9.0-12.2); MONOCYTES # (AUTO) 0.9 10^3/uL (0.0-1.0); MONOCYTES % (AUTO) 11 % (0-12); NEUTROPHILS # (AUTO) 6.2 10^3/uL (1.8-7.8); NEUTROPHILS % (AUTO) 77 % (42-75); PLATELET COUNT 289 10^3/uL (130-400)
[2020-06-29 04:00] VITALS: BP 164/76
[2020-06-29 04:25] LABS: ALANINE AMINOTRANSFERASE 14 U/L (0-55); ALBUMIN 3.1 GM/DL (3.2-4.5); ALKALINE PHOSPHATASE 60 U/L (40-136); BILIRUBIN,TOTAL 0.4 MG/DL (0.1-1.0); BUN/CREATININE RATIO 26; CARBON DIOXIDE 25 MMOL/L (21-32); CHLORIDE 107 MMOL/L (98-107); CREATININE SERUM 0.87 MG/DL (0.60-1.30); GFR ESTIMATED > 60; GLUCOSE 93 MG/DL (70-105); POTASSIUM 3.8 MMOL/L (3.6-5.0); SODIUM 140 MMOL/L (135-145); TOTAL PROTEIN 6.1 GM/DL (6.4-8.2)
[2020-06-29] MEDS: inSUlin ASPART (NovoLOG) 1 UNIT/0.01 ML (CHARGE PER UNIT) SC SCH ×2 (05:02→13:36)
--- NOTE | 2020-06-29 05:21 | Pulmonary Progress Note ---
Subjective Time Seen by a Provider: 05:19 Sepsis Event Evaluation Height, Weight, BMI Height: 5'9.00" Weight: 139lbs. 0.0oz. 63.662517qb; 22.00 BMI Method:Stated Exam Exam Vital Signs Date Time Temp Pulse Resp B/P (MAP) Pulse Ox O2 Delivery O2 Flow Rate FiO2 06/29/20 04:00 37.2 67 20 164/76 (105) 98 Nasal Cannula 2.00 06/29/20 04:00 97 Nasal Cannula 2.00 06/29/20 02:30 100 Nasal Cannula 3.00 06/29/20 01:00 67 06/29/20 00:00 36.6 71 22 152/67 (95) 99 Nasal Cannula 2.00 06/29/20 00:00 97 Nasal Cannula 2.00 06/28/20 22:43 98 Nasal Cannula 3.00 06/28/20 21:00 Nasal Cannula 2.00 06/28/20 20:00 97 Nasal Cannula 2.00 06/28/20 20:00 36.9 85 21 189/77 (114) 97 Nasal Cannula 06/28/20 19:00 89 06/28/20 18:59 97 Nasal Cannula 3.00 06/28/20 16:00 99 Nasal Cannula 3.00 06/28/20 16:00 37.5 78 22 149/67 (94) 99 Nasal Cannula 06/28/20 12:38 89 06/28/20 12:07 37.2 88 98 32 06/28/20 12:00 36.8 80 18 142/78 (99) 99 Nasal Cannula 06/28/20 12:00 99 Nasal Cannula 3.00 06/28/20 11:00 98 Nasal Cannula 3.00 06/28/20 09:00 98 Nasal Cannula 3.00 06/28/20 08:58 Nasal Cannula 06/28/20 07:50 88 06/28/20 07:30 37.2 82 18 198/84 (122) 06/28/20 07:28 72 14 166/70 98 Nasal Cannula 3.00 06/28/20 06:35 79 14 186/82 (116) 98 Nasal Cannula 3.00 I & O 06/29/20 07:00 Intake Total 1580 ml Output Total 1500 ml Balance 80 ml Height & Weight Height: 5'9.00" Weight: 139lbs. 0.0oz. 63.438018ic; 22.00 BMI Method:Stated General Appearance: Thin, Other (VERY LETHARGIC, KEEPS EYES CLOSED. NOT TALKING OR FOLLOWING COMMANDS ON ARRIVAL. LOUD UPPER AIRWAY NOISE) HEENT: Other Neck: Normal Inspection Respiratory: No Accessory Muscle Use, Other (LOUD UPEPR AIRWAY NOISE--PT UNABLE TO CLEAR SECRETIONS-NO COUGH EFFORT) Cardiovascular: Regular Rate, Rhythm, No Edema, No Murmur Capillary Refill: Less Than 3 Seconds Extremity: No Pedal Edema, Other (CHRONIC VENOUS STASIS CHANGES TO RIGHT LOWER LEG--NO EDEMA, VERY POOR TURGOR, SIGNIFICANT ATROPHY OF RIGHT LEG. HEAVY DRESSING IN PLACE ON RIGHT FOOT; DIFFICULT TO PALPATE PULSES ON RIGHT DUE TO HEAVY DRESSING LEFT AKA STUMP APPEARS NORMAL. ) Neurologic/Psychiatric: Other (MENTATION ABOVE. ) Skin: Normal Color (PT IS BLACK), Warm/Dry, Other (RIGHT FOOT WITH HEAVY DRESSING IN PLACE--CHRONIC FOOT/HEEL WOUND. MULTIPLE OLD SCARS TO RIGHT LEG FROM PREVIOUS WOUNDS. ) Results Lab Laboratory Tests 06/28/20 01:25 06/29/20 03:19 Assessment/Plan Assessment/Plan Acute on chronic respiratory failure -BiPAP PRN -oxygen Pneumonia with recent hospitalization - Vanco and Zosyn -Asencio cultures - pending -Urine and strep legionella ag - pending Acute respiratory distress -Check ABG -Oxygen -Monitor NSTEMI -Cardiology following Anemia -Monitor LARISSA CHASE DO Jun 29, 2020 05:21
[2020-06-29] MEDS: CEFEPIME 1,000 MG/SWFI 10 ML IV PUSH IV SCH ×2 (05:32)
[2020-06-29] MEDS ORDERED: VANCOMYCIN 1 GM/NS 250 ML IVPB IV SCH ×2 (06:30)
--- NOTE | 2020-06-29 07:25 | Diagnostic Imaging Report ---
INDICATION: Short of air Upright portable chest shows normal heart size and vascularity. There is basilar discoid atelectasis with no alveolar infiltrates or pleural effusions seen. There has been slight improved aeration of the lung bases since 06/28/2020. IMPRESSION: There is bilateral discoid atelectasis. Slightly improving chest. Dictated by: Dictated on workstation # [id number]
[2020-06-29 07:55] VITALS: BP 172/73
[2020-06-29] MEDS: CARVEDILOL 12.5 MG (COREG) TABLET PO SCH (07:59)
[2020-06-29] MEDS: amLODIPine 10 MG (NORVASC) TAB PO SCH (07:59)
[2020-06-29] MEDS ORDERED: ASPIRIN 81 MG CHEW (CHILDREN'S ASA) PO SCH (09:00)
[2020-06-29] MEDS ORDERED: CLOPIDOGREL 75 MG (PLAVIX) TABLET PO SCH (09:00)
--- NOTE | 2020-06-29 09:20 | Discharge Summary ---
Diagnosis/Chief Complaint Date of Admission Jun 28, 2020 at 06:00 Date of Discharge Admission Diagnosis Acute Respiratory Failure Primary Care Los Larose Altagracia DO Discharge Diagnosis (1) Status post coronary artery stent placement Status: Acute (2) T2DM (type 2 diabetes mellitus) Status: Chronic (3) BPH (benign prostatic hyperplasia) Status: Chronic (4) HLD (hyperlipidemia) Status: Chronic (5) HTN (hypertension) Status: Acute (6) Recent non-ST elevation myocardial infarction (NSTEMI) Status: Acute (7) CAP (community acquired pneumonia) (8) CAD (coronary artery disease) Status: Chronic (9) IDDM (insulin dependent diabetes mellitus) Status: Chronic (10) PNA (pneumonia) Discharge Summary Procedures/Consulations Dr [place]- Pulm Dr Lomas- Cardiology Discharge Physical Exam Allergies: Coded Allergies: Sulfa (Sulfonamide Antibiotics) (Verified Allergy, Severe, HIVES, 06/28/20) temazepam (Verified Allergy, Severe, 06/28/20) MENTAL CONFUSION hydromorphone (Verified Allergy, Unknown, 06/28/20) zolpidem (Verified Allergy, Unknown, 06/28/20) pravastatin (Verified Adverse Reaction, Severe, RASH, 06/28/20) Vitals & I&Os Vital Signs Date Time Temp Pulse Resp B/P (MAP) Pulse Ox O2 Delivery O2 Flow Rate FiO2 06/29/20 15:09 37.6 73 18 142/76 95 Room Air 0.50 06/28/20 12:07 32 General Appearance: No Apparent Distress, Chronically ill, Thin Hospital Course Pt was admitted due to acute respiratory failure and persistent pneumonia. He was treated with IV abx and improved. He reiterated to me multiple times how he only wanted to be home and he was ready to go to [facility]. I discussed this with his and brought up hospice given his multiple chronic diseases and his multiple recent admissions and she agreed to hospice enrollment. She selected [facility] and he was discharged home in improved condition. Labs (last 24 hrs) Microbiology 06/28/20 Gram Stain - Final, Resulted 06/28/20 Sputum Culture - Preliminary, Resulted Staphylococcus aureus 06/28/20 Blood Culture - Preliminary, Resulted No growth Patient resulted labs reviewed. Pending Labs Imaging: Reviewed Imaging Report Discussion & Recommendations Discharge Planning: >30 minutes discharge planning Discharge Home Medications: Active Scripts Active Reported Aspirin 81 Mg Tab.chew 81 Mg PO 0900 Amlodipine Besylate 5 Mg Tablet 5 Mg PO DAILY Bisacodyl 10 Mg Supp.rect 10 Mg RC DAILY PRN Furosemide 40 Mg Tablet 40 Mg PO DAILY Lactulose 10 Gm/15 Ml Solution 15 Ml PO DAILY Biofreeze (Menthol) 118 Ml Gel..ml. 1 Applic TP QID PRN Flomax (Tamsulosin HCl) 0.4 Mg Cap 0.4 Mg PO DAILY Tylenol (Acetaminophen) 325 Mg Capsule 650 Mg PO Q6H PRN Neurontin (Gabapentin) 300 Mg Capsule 300 Mg PO DAILY TAKES 300MG +600MG AT THE SAME TIME DAILY Pyridium (Phenazopyridine HCl) 200 Mg Tablet 200 Mg PO TID PRN Fleet Enema (Na Phos,M-B/Na Phos,Di-Ba) 133 Ml Enema 133 Ml RC DAILY PRN Isosorbide Mononitrate ER (Isosorbide Mononitrate) 60 Mg Tab 90 Mg PO DAILY TAKES 1 & 1/2 (60MG) TABLET Ondansetron Odt (Ondansetron) 8 Mg Tab.rapdis 8 Mg PO TID Clopidogrel (Clopidogrel Bisulfate) 75 Mg Tablet 75 Mg PO DAILY Potassium Chloride 10 Meq Tab.er.prt 10 Meq PO DAILY Androgel (Testosterone) 75 Gm Gel..carry out clerk 2 Pump TD DAILY Glipizide 5 Mg Tablet 5 Mg PO DAILY Terazosin HCl 1 Mg Capsule 1 Mg PO BID Darcie-Lanta Liquid (Mag Hydrox/Al Hydrox/Simeth) Unknown Strength Oral.susp 30 Ml PO Q4H PRN HYDROcodone/APAP 7.5/325 TAB (Acetaminophen/Hydrocodone Bitart) 1 Each Tablet 1 Tab PO TID PRN Carvedilol 25 Mg Tablet 25 Mg PO BID NOTIFY MD IF SBP<90 OR >200 OR PULSE <50 Pantoprazole Sodium 20 Mg Tablet.dr 20 Mg PO DAILY Gabapentin 600 Mg Tablet 600 Mg PO 0800,2200 TAKES 300MG +600MG AT THE SAME TIME DAILY AND 600MG AT BEDTIME Miralax (Polyethylene Glycol 3350) 17 Gm Powd.pack 17 Gm PO DAILY Trazodone HCl 50 Mg Tablet 50 Mg PO HS Milk of Magnesia (Magnesium Hydroxide) 400 Mg/5 Ml Oral.susp 30 Ml PO DAILY PRN Toujeo Solostar (Insulin Glargine,Hum.rec.anlog) 300 Unit/1 Ml Insuln.pen 6 Unit SQ DAILY Magnesium Citrate 296 Ml Solution 296 Ml PO EVERY 4 DAYS PRN 1 BOTTLE EVERY 4 DAYS, IF NO BOWEL MOVEMENT, NEEDED FOR CONSTIPATION [place] 7.5-325 Tablet (Hydrocodone/Acetaminophen) 1 Each Tablet 1 Tab PO HS Baclofen 10 Mg Tablet 10 Mg PO Q8H PRN Colace (Docusate Sodium) 100 Mg Capsule 300 Mg PO HS TAKES 3 (100MG) CAPSULES Finasteride 5 Mg Tablet 5 Mg PO HS Instructions to patient/family Please see electronic discharge instructions given to patient. Clinical Quality Measures DVT/VTE Risk/Contraindication: Risk Factor Score Per Nursin RFS Level Per Nursing on Admit: 4+=Very High Problem Qualifiers (1) T2DM (type 2 diabetes mellitus): Diabetes mellitus emt intermediate insulin use: with longterm use Diabetes mellitus complication status: with kidney complications Diabetes mellitus complication detail: with chronic kidney disease Chronic kidney disease stage: stage 3 (moderate) Qualified Codes: E11.22 - Type 2 diabetes mellitus with diabetic chronic kidney disease; N18.3 - Chronic kidney disease, stage 3 (moderate); Z79.4 - intermediate (current) use of insulin (2) BPH (benign prostatic hyperplasia): Lower urinary tract symptom presence: unspecified whether lower urinary tract symptoms present Qualified Codes: N40.0 - Benign prostatic hyperplasia without lower urinary tract symptoms (3) HLD (hyperlipidemia): Hyperlipidemia type: unspecified Qualified Codes: E78.5 - Hyperlipidemia, unspecified (4) HTN (hypertension): Hypertension type: essential hypertension Qualified Codes: I10 - Essential (primary) hypertension (5) CAP (community acquired pneumonia): Laterality: right Lung location: unspecified part of lung Qualified Codes: J18.9 - Pneumonia, unspecified organism (6) CAD (coronary artery disease): Coronary Disease-Associated Artery/Lesion type: unspecified vessel or lesion type [place] vs. transplanted heart: [place] heart Associated angina: without angina Qualified Codes: I25.10 - Atherosclerotic heart disease of [place] coronary artery without angina pectoris (7) PNA (pneumonia): Pneumonia type: aspiration pneumonia Aspiration pneumonia type: unspecified Laterality: right Lung location: unspecified part of lung Qualified Codes: J69.0 - Pneumonitis due to inhalation of food and vomit HAWA BILLINGS MD Jun 29, 2020 09:20
[2020-06-29 12:00] VITALS: BP 142/76
[2020-06-29 15:09] VITALS: BP 142/76
--- NOTE | 2020-06-29 17:22 | Cardiology Progress Note ---
Cardiology SOAP Progress Note Objective: I&O/Vital Signs 06/29/20 06/29/20 06/29/20 06/29/20 06:34 06:51 07:55 07:56 Temp 37.6 Pulse 75 75 Resp 16 B/P (MAP) 172/73 (106) Pulse Ox 98 97 97 O2 Delivery Nasal Cannula Nasal Cannula Nasal Cannula O2 Flow Rate 2.00 2.00 2.00 06/29/20 06/29/20 06/29/20 06/29/20 09:00 09:43 09:45 12:00 Pulse 73 Resp 18 B/P (MAP) 142/76 (98) Pulse Ox 97 95 O2 Delivery Nasal Cannula Nasal Cannula Nasal Cannula Room Air O2 Flow Rate 2.00 1.00 0.50 06/29/20 06/29/20 12:00 15:09 Temp 37.6 Pulse 73 Resp 18 B/P (MAP) 142/76 Pulse Ox 97 95 O2 Delivery Room Air Room Air O2 Flow Rate 0.50 06/29/20 00:00 Intake Total 1480 ml Output Total 1500 ml Balance -20 ml Weight (Pounds): 139 Weight (Ounces): 0.0 Weight (Calculated Kilograms): 63.820343 Results/Procedures: Labs Laboratory Tests 06/28/20 19:57: Troponin I 0.068H 06/28/20 20:41: Glucometer 178H 06/29/20 03:19: Troponin I 0.065H, White Blood Count 8.0, Red Blood Count 3.11L, Hemoglobin 8.7L , Hematocrit 27L, Mean Corpuscular Volume 88, Mean Corpuscular Hemoglobin 28, Mean Corpuscular Hemoglobin Concent 32, Red Cell Distribution Width 13.6, Platelet Count 289, Mean Platelet Volume 9.9, Immature Granulocyte % (Auto) 0, Neutrophils (%) (Auto) 77H, Lymphocytes (%) (Auto) 10L, Monocytes (%) (Auto) 11, Eosinophils (%) (Auto) 0, Basophils (%) (Auto) 0, Neutrophils # (Auto) 6.2, Lymphocytes # (Auto) 0.8L, Monocytes # (Auto) 0.9, Eosinophils # (Auto) 0.0, Basophils # (Auto) 0.0, Immature Granulocyte # (Auto) 0.0, Sodium Level 140, Potassium Level 3.8, Chloride Level 107, Carbon Dioxide Level 25, Anion Gap 8, Blood Urea Nitrogen 23H, Creatinine 0.87, Estimat Glomerular Filtration Rate > 60, BUN/Creatinine Ratio 26, Glucose Level 93, Calcium Level 9.0, Corrected Calcium 9.7, Total Bilirubin 0.4, Aspartate Amino Transf (AST/SGOT) 11, Alanine Aminotransferase (ALT/SGPT) 14, Alkaline Phosphatase 60, Total Protein 6.1L, Albumin 3.1L Microbiology 06/28/20 Gram Stain - Final, Resulted 06/28/20 Sputum Culture - Preliminary, Resulted Staphylococcus aureus A/P: Thank you for your consultation. Please call me if you have any questions. Boby Lomas MD, FACP, FACC, FSCAI, FHRS, CCDS Interventional Cardiology Cardiac Electrophysiology Vascular Medicine and Endovascular Interventions Maribeth LOMAS MD Jun 29, 2020 17:22
== END 2020-06-29 15:00 | disposition hospice, home (50) | DRG 189 ==
LOC: EDUNIT# 01:12 → ER 01:14 → CSD 06:00
PROVIDERS: ADMIT Internal Medicine; ATTEND Internal Medicine
DX: J96.21 Acute and chronic respiratory failure with hypoxia (principal); J18.9 Pneumonia, unspecified organism; I21.4 Non-ST elevation (NSTEMI) myocardial infarction; I25.10 Atherosclerotic heart disease of native coronary artery without angina pectoris; Z66 Do not resuscitate; E11.51 Type 2 diabetes mellitus with diabetic peripheral angiopathy without gangrene; E11.40 Type 2 diabetes mellitus with diabetic neuropathy, unspecified; I87.8 Other specified disorders of veins; G47.30 Sleep apnea, unspecified; E86.0 Dehydration; E78.00 Pure hypercholesterolemia, unspecified; E78.5 Hyperlipidemia, unspecified; E11.22 Type 2 diabetes mellitus with diabetic chronic kidney disease; I12.9 Hypertensive chronic kidney disease with stage 1 through stage 4 chronic kidney disease, or unspecified chronic kidney disease; N18.3 Chronic kidney disease, stage 3 (moderate); N40.0 Benign prostatic hyperplasia without lower urinary tract symptoms; K59.09 Other constipation; M19.91 Primary osteoarthritis, unspecified site; M54.9 Dorsalgia, unspecified; R13.10 Dysphagia, unspecified; F41.9 Anxiety disorder, unspecified; F32.9 Major depressive disorder, single episode, unspecified; D64.9 Anemia, unspecified; Z87.891 Personal history of nicotine dependence; Z95.5 Presence of coronary angioplasty implant and graft; Z95.828 Presence of other vascular implants and grafts; Z89.612 Acquired absence of left leg above knee; Z79.4 Long term (current) use of insulin; Z20.828 Contact with and (suspected) exposure to other viral communicable diseases
CPT/HCPCS: 36415; 36600; 51702; 70450; 71045; 71250; 80053; 81000; 82550; 82553; 82805; 82962; 83615; 83735; 83880; 84145; 84484; 85025; 85610; 85652; 85730; 86141; 87040; 87070; 87205; 87635; 93005; 93041; 93306; 94640; 94760